=== PATIENT | male | born 1935 | race Caucasian/White ===

== ENCOUNTER 2017-02-10 11:03 | Emergency (ER) | payer BC ==
[~2017-02-10] VITALS: Ht 185.4 cm; Wt 88.0 kg
[~2017-02-10 11:03] MED LIST: ASPEC81 PO; CARV3.122 PO; LSN5 PO; NTRSLP4 SL; PLV75 PO; ROSU20TA PO; TIOTCAP INH
[2017-02-10 11:15] VITALS: TEMP 36.6; Ht 185.4 cm; Wt 88.0 kg
[2017-02-10] MEDS ORDERED: LISI10TA PO (11:28)
[2017-02-10] MEDS ORDERED: SPRIN/30 INH (11:28)
[2017-02-10] MEDS ORDERED: CARV3.122 PO (11:28)
[2017-02-10] MEDS ORDERED: FLUV1CAP PO (11:29)
[2017-02-10 11:40] VITALS: O2SAT 96
[2017-02-10 11:43] LABS: HEMATOCRIT 42.8 % (42-52); MEAN CELL VOLUME 88.8 fL (80-100); MEAN CORPUSCULAR HEMOGLOBIN 29.7 pg (25-34); MEAN CORPUSCULAR HGB CONC 33.4 g/dl (32-36); MEAN PLATELET VOLUME 11.1 fL (7.4-10.4); PLATELET COUNT 160 K/uL (130-400); RED BLOOD COUNT 4.82 M/uL (4.7-6.1); WHITE BLOOD COUNT 5.25 K/uL (4.8-10.8)
--- NOTE | 2017-02-10 11:44 | DIAGNOSTIC IMAGING REPORT ---
CHEST ONE VIEW PORTABLE CLINICAL HISTORY: Evaluate Fever/Sepsis dyspnea COMPARISON STUDY: 09/25/2016 FINDINGS: Stable left hilar fullness with fibrotic changes about the left hilum. Unchanging pleural reactive changes left pulmonary apex most likely post therapeutic. Chronic elevation left hemidiaphragm. Right lung is grossly clear.] Hemidiaphragm smooth. IMPRESSION: Chronic and postoperative/post therapeutic change. No acute process. Electronically signed by: Austin Mayberry M.D. 02/10/2017 11:42 AM Dictated Date/Time: 02/10/2017 11:41 AM
[2017-02-10 11:51] LABS: BLOOD UREA NITROGEN 18 mg/dl (7-18); BUN/CREATININE RATIO 14.2 (10-20); CALCIUM 8.7 mg/dl (8.5-10.1); CARBON DIOXIDE 30 mmol/L (21-32); CHLORIDE 108 mmol/L (98-107); GLUCOSE 76 mg/dl (70-99); SODIUM 143 mmol/L (136-145)
[2017-02-10 11:53] LABS: PARTIAL THROMBOPLASTIN RATIO 1.1; PROTHROMBIN TIME (PATIENT) 10.9 SECONDS (9.0-12.0)
[2017-02-10 11:57] LABS: ALKALINE PHOSPHATASE 55 U/L (45-117); ALT/SGPT 26 U/L (12-78); AST/SGOT 20 U/L (15-37)
[2017-02-10] MEDS ORDERED: FENTANYL CITRATE INJ 50 MCG/1 ML 2 ML VIAL IV ONE (12:00)
[2017-02-10 12:15] LABS: BASO ABS # 0.09 K/uL (0-0.2); BASOPHIL % 1.8 % (0-2); COMPLETE YES; EOSINOPHIL % 4.6 %; LYMPH ABS # 0.67 K/uL (1.2-3.4); LYMPHOCYTE % 12.8 %; NEUTROPHILS % 55.1 %; VARIANT LYM ABS # 1.35 K/uL; VARIANT LYMPHOCYTE % 25.7 %
--- NOTE | 2017-02-10 12:34 | DIAGNOSTIC IMAGING REPORT ---
HEAD CT NONCONTRAST CT DOSE: 729.78 mGycm HISTORY: Mental status change headache TECHNIQUE: Multiaxial CT images of the head were performed without the use of intravenous contrast. Comparison: 06/30/2011 Findings: The paranasal sinuses and mastoid air cells are clear. The calvarium and skull base are intact. The ventricles and sulci are within normal limits. There is no mass, hematoma, midline shift, or acute infarct. Mild asymmetry of CSF spaces over the cerebral convexities is unchanged and is considered chronic. Impression: No acute intracranial abnormality. Electronically signed by: Austin Mayberry M.D. 02/10/2017 12:32 PM Dictated Date/Time: 02/10/2017 12:29 PM
--- NOTE | 2017-02-10 14:30 | EMERGENCY ROOM VISIT NOTE ---
History Report prepared by Laine: Lew Venegas Under the Supervision of: Dr. Adi Hernandez D.O. First contact with patient: 11:24 Chief Complaint: CHEST PAIN Stated Complaint: CHEST PAIN Nursing Triage Summary: pt here with chest pain since this am. pt states upon onset pain was 8/10, was diaphoretic and dizzy. upon ems arrival pt rated pain 5/10, was given 4 baby aspirin and 1 nitro with min. relief. pt has hx of mi approx a year ago. History of Present Illness The patient is an 81 year old male who presents to the Emergency Room via EMS with complaints of persistent chest pain that started this morning. The patient had a heart attack a year ago. He states that he started getting a headache on the left side of his head last night, which radiated down into his ear. The patient's headache persisted into this morning, and he then started getting chest pain. This morning, he was also sweaty and dizzy. The patient rates the chest pain at onset as an 8 out of 10 in severity. Upon EMS arrival, the patient rated the pain as a 5 out of 10 in severity, and currently, he rates his pain as a 4 out of 10 in severity. The patient's headache has persisted until currently as well. The patient was given 4 baby aspirin and 1 nitro in the ambulance, with minimal relief. The patient denies shortness of breath, fevers, recent cough, runny nose, or sore throat. The patient says that he has never had a headache like this before. Source of History: patient, nursing staff Onset: This morning Position: chest Symptom Intensity: 8 out of 10 at onset, currently 4 out of 10 Timing: other (persistent) Associated Symptoms: + diaphoresis, + headache, No SOB, No cough, No fevers , No sorethroat Note: Associated symptoms: Dizziness. Denies runny nose. Review of Systems See HPI for pertinent positives & negatives. A total of 10 systems reviewed and were otherwise negative. 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 (8) Pneumonia, Organism Nos (9) Unstable angina Surgical Problems: (1) Stented coronary artery (2) Stented coronary artery Family History Cancer Diabetes mellitus Heart disease Hypertension Lung disease Social History Smoking Status: Never Smoker Alcohol Use: none Drug Use: none Marital Status: Housing Status: lives with family, unknown Occupation Status: retired Current/Historical Medications Scheduled Aspirin (Aspirin EC Low Dose), 81 MG PO QAM Carvedilol (Coreg), 3.125 MG PO BID Clopidogrel Bisulfate (Clopidogrel), 75 MG PO QAM Fluvastatin (Lescol), 20 MG PO Q2D Lisinopril (Prinivil), 10 MG PO DAILY Tiotropium [place] (Spiriva Handihaler), 1 CAP INH DAILY Scheduled PRN Nitroglycerin (Nitrostat), 0.4 MG SL Q5M PRN for Chest Pain Allergies Coded Allergies: Cephalosporins (Verified Allergy, Unknown, 02/10/17) Iodinated Diagnostic Agents (Verified Allergy, Unknown, `, 02/10/17) Oxycodone (Verified Allergy, Unknown, HIVES, 02/10/17) ABLE TO TAKE TYLENOL Penicillins (Verified Allergy, Unknown, 02/10/17) Physical Exam Vital Signs Date Time Temp Pulse Resp B/P Pulse Ox O2 Delivery O2 Flow Rate FiO2 02/10/17 14:37 76 16 147/76 97 Room Air 02/10/17 14:07 65 02/10/17 12:39 67 16 154/86 97 Room Air 02/10/17 11:40 96 Room Air 02/10/17 11:15 36.6 77 16 153/95 96 Room Air 02/10/17 11:09 68 Physical Exam CONSTITUTIONAL/VITAL SIGNS: Reviewed / noted above. GENERAL: Non-toxic in appearance. INTEGUMENTARY: Warm, dry, and [place]. HEAD: Normocephalic. EYES: without scleral icterus or trauma. ENT/OROPHARYNX: clear and moist. LYMPHADENOPATHY/NECK: Is supple without lymphadenopathy or meningismus. RESPIRATORY: Lungs clear and equal. CARDIOVASCULAR: Regular rate and rhythm. GI/ABDOMEN: Soft and nontender. No organomegaly or pulsatile mass. No rebound or guarding. Normal bowel sounds. EXTREMITIES: Warm and well perfused. BACK: No CVA tenderness. NEUROLOGICAL: Intact without focal deficits. PSYCHIATRIC: normal affect. MUSCULOSKELETAL: Normally developed with good muscle tone. Medical Decision & Procedures ER Provider Diagnostic Interpretation: Radiology results as stated below per my review and radiologist interpretation: CHEST ONE VIEW PORTABLE CLINICAL HISTORY: Evaluate Fever/Sepsis dyspnea COMPARISON STUDY: 09/25/2016 FINDINGS: Stable left hilar fullness with fibrotic changes about the left hilum. Unchanging pleural reactive changes left pulmonary apex most likely post therapeutic. Chronic elevation left hemidiaphragm. Right lung is grossly clear.] Hemidiaphragm smooth. IMPRESSION: Chronic and postoperative/post therapeutic change. No acute process. Electronically signed by: Austin Mayberry M.D. 02/10/2017 11:42 AM Dictated Date/Time: 02/10/2017 11:[address]AST CT DOSE: 729.78 mGycm HISTORY: Mental status change headache TECHNIQUE: Multiaxial CT images of the head were performed without the use of intravenous contrast. Comparison: 06/30/2011 Findings: The paranasal sinuses and mastoid air cells are clear. The calvarium and skull base are intact. The ventricles and sulci are within normal limits. There is no mass, hematoma, midline shift, or acute infarct. Mild asymmetry of CSF spaces over the cerebral convexities is unchanged and is considered chronic. Impression: No acute intracranial abnormality. Electronically signed by: Autsin Mayberry M.D. 02/10/2017 12:32 PM Dictated Date/Time: 02/10/2017 12:29 PM Laboratory Results 02/10/17 10:55 Red Blood Count 4.82, Mean Corpuscular Volume 88.8, Mean Corpuscular Hemoglobin 29.7, Mean Corpuscular Hemoglobin Concent 33.4, Mean Platelet Volume 11.1 02/10/17 10:55 Test 02/10/17 10:55 02/10/17 13:45 White Blood Count 5.25 K/uL (4.8-10.8) Red Blood Count 4.82 M/uL (4.7-6.1) Hemoglobin 14.3 g/dL (14.0-18.0) Hematocrit 42.8 % (42-52) Mean Corpuscular Volume 88.8 fL (80-100) Mean Corpuscular Hemoglobin 29.7 pg (25-34) Mean Corpuscular Hemoglobin Concent 33.4 g/dl (32-36) Platelet Count 160 K/uL (130-400) Mean Platelet Volume 11.1 fL (7.4-10.4) RDW Standard Deviation 46.7 fL (36.4-46.3) RDW Coefficient of Variation 14.3 % (11.5-14.5) Neutrophils % (Manual) 55.1 % Lymphocytes % (Manual) 12.8 % Variant Lymphocytes % (manual) 25.7 % Eosinophils % (Manual) 4.6 % Basophils % (Manual) 1.8 % (0-2) Neutrophils # (Manual) 2.89 K/uL (1.4-6.5) Total Absolute Neutrophils 2.89 K/uL (1.4-6.5) Lymphocytes # (Manual) 0.67 K/uL (1.2-3.4) Absolute Variant Lymphocytes 1.35 K/uL Total Absolute Lymphocytes 2.02 K/uL (1.2-3.4) Eosinophils # (Manual) 0.24 K/uL (0-0.5) Basophils # (Manual) 0.09 K/uL (0-0.2) Red Blood Cell Morphology Unremarkable Prothrombin Time 10.9 SECONDS (9.0-12.0) Prothromb Time International Ratio 1.0 (0.9-1.1) Activated Partial Thromboplast Time 28.7 SECONDS (21.0-31.0) Partial Thromboplastin Ratio 1.1 Anion Gap 5.0 mmol/L (3-11) Est Creatinine Clear Calc Drug Dose 51.2 ml/min Estimated GFR () 59.7 Estimated GFR (Non- 51.5 BUN/Creatinine Ratio 14.2 (10-20) Calcium Level 8.7 mg/dl (8.5-10.1) Total Bilirubin 1.2 mg/dl (0.2-1) Direct Bilirubin 0.2 mg/dl (0-0.2) Aspartate Amino Transf (AST/SGOT) 20 U/L (15-37) Alanine Aminotransferase (ALT/SGPT) 26 U/L (12-78) Alkaline Phosphatase 55 U/L (45-117) Total Creatine Kinase 155 U/L (39-308) Creatine Kinase MB 1.6 ng/ml (0.5-3.6) Creatine Kinase MB Ratio 1.0 (0-3.0) Troponin I < 0.015 ng/ml (0-0.045) Total Protein 7.2 gm/dl (6.4-8.2) Albumin 3.8 gm/dl (3.4-5.0) Lipase 144 U/L (73-393) Erythrocyte Sedimentation Rate 11 mm/hr (0-14) Laboratory results as stated above per my review. Medications Administered Medications (Trade) Dose Ordered Sig/Umesh Route Start Time Stop Time Status Last Admin Dose Admin Fentanyl Citrate (Fentanyl Inj) 50 mcg NOW ONCE IV 02/10/17 12:00 02/10/17 12:01 DC 02/10/17 11:55 50 MCG ECG Indication: chest pain Rate (beats per minute): 68 Rhythm: normal sinus Findings: no ectopy, other (left anterior fascicular block, no acute injury) Comparison ECG Date: there are some nonspecific T-wave changes laterally that are different than July 04 2016 ED Course 1144: Previous medical records were reviewed. The patient was evaluated in room C3. A complete history and physical examination was performed. 1200: Ordered Fentanyl Inj 50 mcg IV. 1431: On reevaluation, the patient is resting comfortably. I discussed the results and findings with the patient. He verbalized agreement of the treatment plan. He will be discharged home. Medical Decision . Differential diagnosis: Etiologies such as cardiac ischemia, aortic dissection, pulmonary embolism, pneumonia, pneumothorax, musculoskeletal, infections, pericarditis, myocarditis , esophageal rupture, gastrointestinal, as well as others were entertained. Differential includes: Acute intracranial bleed, trauma, meningitis, encephalitis, increased intracranial pressure, mass or mass effect, facial or dental infection, temporal arteritis, CVA, TIA, acute hypertensive emergency, sinusitis, carbon monoxide exposure. This is an 81-year-old male who presents to the ED with a chief complaint of left-sided head pain as well as some chest pain today in addition to diaphoresis , dizziness. The head started to hurt yesterday. His pain on the left side. His chest pain started this morning. EMS arrived and found the patient clammy. He was provided nitroglycerin and aspirin. He states the nitroglycerin did not seem to help his pain. He denied associated shortness of breath or recent illness. He does not have a fever. No back or flank pain and abdominal pain. His vital signs are stable. His physical exam was unremarkable. CBC is normal. A chest x-ray was negative for acute disease. A CT scan of the brain was negative for acute disease. Complete metabolic panel was normal. A troponin was negative. Lipase was negative. A sedimentation rate was 11. The patient was told the results of the tests. He was treated with IV fentanyl. He is felt to be stable for discharge and outpatient follow-up. Impression Primary Impression: Headache Additional Impression: Precordial chest pain Scribe Attestation The scribe's documentation has been prepared under my direction and personally reviewed by me in its entirety. I confirm that the note above accurately reflects all work, treatment, procedures, and medical decision making performed by me. Departure Information Dispostion Home / Self-Care Referrals Daryn Pettit M.D. (PCP) Patient Instructions My [facility] Additional Instructions Follow-up with your doctor for further care and evaluation in 1-2 days. Return to the emergency department for worsening or new symptoms or any concerns. You have been examined and treated today on an emergency basis only. This is not a substitute for, or an effort to provide, complete comprehensive medical care. It is impossible to recognize and treat all injuries or illnesses in a single emergency department visit. It is therefore important that you follow up closely with your doctor. Call as soon as possible for an appointment. Problem Qualifiers
[2017-02-10 14:37] VITALS: BP 147/76; PULSE 76; O2SAT 97
== END 2017-02-10 11:43 | disposition home or self-care (01) ==
LOC: EDBD 11:03 → C.EDC 11:04
DX: R51 Headache (principal); R07.2 Precordial pain; R61 Generalized hyperhidrosis; R42 Dizziness and giddiness; Z79.82 Long term (current) use of aspirin; Z79.899 Other long term (current) drug therapy; I25.2 Old myocardial infarction; Z85.118 Personal history of other malignant neoplasm of bronchus and lung; Z86.79 Personal history of other diseases of the circulatory system; Z87.01 Personal history of pneumonia (recurrent); Z87.09 Personal history of other diseases of the respiratory system; Z87.19 Personal history of other diseases of the digestive system; Z98.61 Coronary angioplasty status; Z82.49 Family history of ischemic heart disease and other diseases of the circulatory system; Z83.3 Family history of diabetes mellitus; Z83.6 Family history of other diseases of the respiratory system

== ENCOUNTER → 2017-05-07 | Outpatient (CLI) | payer BC ==
[~2017-05-07] MED LIST changes: +FLUV1CAP PO; +LISI10TA PO; -LSN5 PO; -ROSU20TA PO; +SPRIN/30 INH; -TIOTCAP INH
[2017-05-07 09:48] LABS: BASO % 0.8 %; BASO ABS # 0.04 K/uL (0-0.2); COMPLETE YES; EOS % 3.2 %; HEMATOCRIT 44.8 % (42-52); IG% 0.2 %; LYMPH % 20.6 %; MEAN CELL VOLUME 88.7 fL (80-100); MEAN CORPUSCULAR HEMOGLOBIN 28.5 pg (25-34); MEAN CORPUSCULAR HGB CONC 32.1 g/dl (32-36); MEAN PLATELET VOLUME 11.3 fL (7.4-10.4); MONO % 10.1 %; NEUT % 65.1 %; PLATELET COUNT 156 K/uL (130-400); RED BLOOD COUNT 5.05 M/uL (4.7-6.1); WHITE BLOOD COUNT 5.33 K/uL (4.8-10.8)
[2017-05-07 10:27] LABS: ALT/SGPT 21 U/L (12-78); AST/SGOT 11 U/L (15-37); BLOOD UREA NITROGEN 14 mg/dl (7-18); BUN/CREATININE RATIO 12.5 (10-20); CALCIUM 8.5 mg/dl (8.5-10.1); CARBON DIOXIDE 29 mmol/L (21-32); CHLORIDE 110 mmol/L (98-107); CHOLESTEROL 150 mg/dl (0-200); GLUCOSE 82 mg/dl (70-99); POTASSIUM 4.2 mmol/L (3.5-5.1); SODIUM 142 mmol/L (136-145)
[2017-05-07 10:29] LABS: ALB/GLOB RATIO 1.1 (0.9-2); ALKALINE PHOSPHATASE 54 U/L (45-117); CHOLESTEROL/HDL RATIO 4.4; HDL CHOLESTEROL 34 mg/dl; LDL CHOLESTEROL CALCULATED 83 mg/dl; TRIGLYCERIDES 165 mg/dl (0-150); VERY LOW DENSITY LIPOPROT CALC 33 mg/dl
--- NOTE | 2017-05-12 08:42 | CODING QUERY MEDICAL NECESSITY ---
SUPPORTING DIAGNOSIS NEEDED Dr. Pettit, A supporting diagnosis is required for the test/procedure performed on this patient in order for us to be reimbursed by the patient's insurance. Please provide a supporting diagnosis for the following test/procedure listed below next to the test name along with your signature. *If there is no additional diagnosis for this patient that would support the following test/procedure please document that below next to the test/procedure. Test(s)/Procedure(s) that require a supporting diagnosis: * ([id number]) VITAMIN D ASSAY DIAGNOSIS: DATE OF SERVICE: 05/07/17 Provider Signature: Date: Thank you Jan [facility] Information Management Once completed, please kindly fax back to [phone] For questions please call [phone]
== END | disposition home or self-care (01) ==
LOC: C.LAB 09:16
PROVIDERS: ATTEND Internal Medicine Geriatric Medicine
DX: J43.9 Emphysema, unspecified (principal); Z85.118 Personal history of other malignant neoplasm of bronchus and lung; M19.90 Unspecified osteoarthritis, unspecified site; E78.5 Hyperlipidemia, unspecified; I10 Essential (primary) hypertension; I25.10 Atherosclerotic heart disease of native coronary artery without angina pectoris; D64.9 Anemia, unspecified; E55.9 Vitamin D deficiency, unspecified

== ENCOUNTER → 2017-11-11 | Outpatient (CLI) | payer BC ==
--- NOTE | 2017-11-11 13:51 | DIAGNOSTIC IMAGING REPORT ---
CHEST 2 VIEWS ROUTINE CLINICAL HISTORY: R05 [id number] COMPARISON STUDY: February 10, 2017 FINDINGS: There is underlying pulmonary emphysema. Postsurgical changes are present on the left. There is left-sided volume loss. There is increased density at the left hilum with thin adjacent fibrotic spiculations. There is left apical pleural thickening. There is no acute parenchymal consolidation. There are no significant and pleural effusions.[ IMPRESSION: Stable postsurgical changes on the left. No acute findings. Electronically signed by: Ortega Nino M.D. 11/11/2017 1:50 PM Dictated Date/Time: 11/11/2017 1:49 PM
[2017-11-11 17:19] LABS: BLOOD UREA NITROGEN 12 mg/dl (7-18); CALCIUM 8.9 mg/dl (8.5-10.1); CARBON DIOXIDE 29 mmol/L (21-32); CREATININE 1.32 mg/dl (0.60-1.40); GLUCOSE 79 mg/dl (70-99); POTASSIUM 4.4 mmol/L (3.5-5.1); SODIUM 139 mmol/L (136-145)
== END | disposition home or self-care (01) ==
LOC: C.RADBC 13:16
PROVIDERS: ATTEND Internal Medicine Geriatric Medicine
DX: R05 Cough (principal)

== ENCOUNTER 2017-11-20 21:07 | Emergency (ER) | payer BC ==
[~2017-11-20] VITALS: Ht 182.9 cm; Wt 87.0 kg
[2017-11-20 21:14] VITALS: TEMP 36.7; Ht 182.9 cm; Wt 87.0 kg
--- NOTE | 2017-11-20 22:00 | EMERGENCY ROOM VISIT NOTE ---
History Report prepared by Laine: Lizabeth Isbell Under the Supervision of: Dr. Alfred Saldivar M.D. First contact with patient: 21:49 Chief Complaint: NOSE BLEED (MINOR) Stated Complaint: NOSE BLEED - IS ON BLOOD THINNERS History of Present Illness The patient is a 82 year old male who presents to the Emergency Room with complaints of a nose bleed in his left nostril that began spontaneously at 2024. He is accompanied by his daughter and who report that his nose bleed resolved itself in the ED waiting room. His states that he had a similar episode to this a couple of days before Nadeen 2016. He denies feeling any dripping in the back of his throat. Source of History: patient, family (daughter ), spouse/significant other ( ) Onset: 2024 today Position: nose (left nostril ) Quality: other (bleeding) Note: Negative dripping in the back of his throat. Review of Systems See HPI for pertinent positives and negatives. A total of ten systems were reviewed and were otherwise negative. 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 (8) Pneumonia, Organism Nos (9) Unstable angina Surgical Problems: (1) History of cardiac cath (2) History of cardiac catheterization (3) Stented coronary artery (4) Stented coronary artery Family History Cancer Diabetes mellitus Heart disease Hypertension Lung disease Social History Smoking Status: Never Smoker Alcohol Use: none Drug Use: none Marital Status: Housing Status: lives with family, unknown Occupation Status: retired Current/Historical Medications Scheduled Aspirin (Aspirin EC Low Dose), 81 MG PO QAM Carvedilol (Coreg), 3.125 MG PO BID Clopidogrel Bisulfate (Clopidogrel), 75 MG PO QAM Fluvastatin (Lescol), 20 MG PO Q2D Lisinopril (Prinivil), 10 MG PO DAILY Tiotropium [place] (Spiriva Handihaler), 1 CAP INH DAILY Scheduled PRN Nitroglycerin (Nitrostat), 0.4 MG SL Q5M PRN for Chest Pain Allergies Coded Allergies: Cephalosporins (Verified Allergy, Unknown, 02/10/17) Iodinated Diagnostic Agents (Verified Allergy, Unknown, `, 02/10/17) Oxycodone (Verified Allergy, Unknown, HIVES, 02/10/17) ABLE TO TAKE TYLENOL Penicillins (Verified Allergy, Unknown, 02/10/17) Physical Exam Vital Signs Date Time Temp Pulse Resp B/P (MAP) Pulse Ox O2 Delivery O2 Flow Rate FiO2 11/21/17 00:56 85 16 149/85 95 Room Air 11/20/17 21:14 36.7 93 18 124/78 96 Room Air Physical Exam GENERAL: Awake, alert, well-appearing, in no distress HENT: Normocephalic, atraumatic. Oropharynx unremarkable. Dry blood in bilateral naris. 0.5 cm anterior erosions to the right lateral naris wall and left septal naris wall. No evidence of active bleeding in posterior pharynx. EYES: Normal conjunctiva. Sclera non-icteric. NECK: Supple. No nuchal rigidity. FROM. No JVD. RESPIRATORY: Clear to auscultation. CARDIAC: Regular rate, normal rhythm. Extremities warm and well perfused. Pulses equal. ABDOMEN: Soft, non-distended. No tenderness to palpation. No rebound or guarding. No masses. RECTAL: Deferred. MUSCULOSKELETAL: Chest examination reveals no tenderness. The back is symmetrical on inspection without obvious abnormality. There is no CVA tenderness to palpation. No joint edema. LOWER EXTREMITIES: Calves are equal size bilaterally and non-tender. No edema. No discoloration. NEURO: Normal sensorium. No sensory or motor deficits noted. SKIN: No rash or jaundice noted. Medical Decision & Procedures Laboratory Results 11/20/17 22:30 Red Blood Count 5.09, Mean Corpuscular Volume 87.2, Mean Corpuscular Hemoglobin 29.9, Mean Corpuscular Hemoglobin Concent 34.2, Mean Platelet Volume 10.8, Neutrophils (%) (Auto) 66.9, Lymphocytes (%) (Auto) 17.9, Monocytes (%) (Auto) 11.9, Eosinophils (%) (Auto) 2.3, Basophils (%) (Auto) 0.3, Neutrophils # (Auto ) 4.69, Lymphocytes # (Auto) 1.25, Monocytes # (Auto) 0.83, Eosinophils # (Auto ) 0.16, Basophils # (Auto) 0.02 2/9/18 22:30 Test 11/20/17 22:30 11/20/17 23:09 White Blood Count 7.00 K/uL (4.8-10.8) Red Blood Count 5.09 M/uL (4.7-6.1) Hemoglobin 15.2 g/dL (14.0-18.0) Hematocrit 44.4 % (42-52) Mean Corpuscular Volume 87.2 fL (80-100) Mean Corpuscular Hemoglobin 29.9 pg (25-34) Mean Corpuscular Hemoglobin Concent 34.2 g/dl (32-36) Platelet Count 153 K/uL (130-400) Mean Platelet Volume 10.8 fL (7.4-10.4) Neutrophils (%) (Auto) 66.9 % Lymphocytes (%) (Auto) 17.9 % Monocytes (%) (Auto) 11.9 % Eosinophils (%) (Auto) 2.3 % Basophils (%) (Auto) 0.3 % Neutrophils # (Auto) 4.69 K/uL (1.4-6.5) Lymphocytes # (Auto) 1.25 K/uL (1.2-3.4) Monocytes # (Auto) 0.83 K/uL (0.11-0.59) Eosinophils # (Auto) 0.16 K/uL (0-0.5) Basophils # (Auto) 0.02 K/uL (0-0.2) RDW Standard Deviation 45.4 fL (36.4-46.3) RDW Coefficient of Variation 14.2 % (11.5-14.5) Immature Granulocyte % (Auto) 0.7 % Immature Granulocyte # (Auto) 0.05 K/uL (0.00-0.02) Anion Gap 6.0 mmol/L (3-11) Est Creatinine Clear Calc Drug Dose 51.3 ml/min Estimated GFR () 62.8 Estimated GFR (Non- 54.2 BUN/Creatinine Ratio 23.4 (10-20) Calcium Level 8.5 mg/dl (8.5-10.1) Prothrombin Time 10.5 SECONDS (9.0-12.0) Prothromb Time International Ratio 1.0 (0.9-1.1) Activated Partial Thromboplast Time 25.1 SECONDS (21.0-31.0) Partial Thromboplastin Ratio 1.0 Laboratory results reviewed by me Medications Administered Medications (Trade) Dose Ordered Sig/[facility] Route Start Time Stop Time Status Last Admin Dose Admin Oxymetazoline HCl (Afrin 0.05% Nasal [place]) 75 sprays STK-MED ONCE .ROUTE 11/20/17 22:38 11/20/17 22:39 DC 11/20/17 22:38 75 SPRAYS Silver Nitrate/ Potassium Nitrate (Silver Nitrate Applicators) 4 appl STK-MED ONCE .ROUTE 11/21/17 00:54 11/21/17 00:55 DC 11/21/17 00:54 4 APPL Procedure Anterior Nasal Cauterization. Indication: Epistaxis Verbal consent obtained. Bilateral naris were pretreated with Afrin. Silver nitrate was briefly applied to right lateral and left septal naris anterior erosions with good effect. The patient tolerated this well. Hemostasis maintained. No complications. ED Course 2154: The patient was evaluated in room A10. A complete history and physical exam was performed. 0100 I reevaluated the patient. Discussed results and discharge instructions: He verbalized understanding and agreement. The patient is ready for discharge. Medical Decision I reviewed the patient's past medical history, medications, and the nursing notes as described above. Differential diagnosis: Etiologies such as anterior vs posterior epistaxis, coagulopathy, traumatic injury, fracture, septal hematoma, thrombocytopenia, URI, Bronchitis, as well as other pathologies were entertained. The patient is an 82 y/o gentlman with a pmxh of CAD on ASA and plavix who presents to the emergency department with epistaxis beginning [employer] in the setting of being treated for bronchitis per HPI. On arrival the patient is in NAD, AFVSS. Clamp placed on arrival with subsequent hemostasis achieved. Small right lateral and left septal erosions appreciated. Patient pretreated with afrin and erosions cauterized per procedure note with good effect. Labs unremarkable. Findings and plan for follow-up reviewed with patient. Patient agreeable and d/c'd per discharge instructions. Medication Reconcilliation Current Medication List: was personally reviewed by me Blood Pressure Screening Patient's blood pressure: Normal blood pressure Blood pressure disposition: Did not require urgent referral Impression Primary Impression: Anterior epistaxis Scribe Attestation The scribe's documentation has been prepared under my direction and personally reviewed by me in its entirety. I confirm that the note above accurately reflects all work, treatment, procedures, and medical decision making performed by me. Departure Information Dispostion Home / Self-Care Referrals Daryn Pettit M.D. (PCP) Forms HOME CARE DOCUMENTATION FORM, IMPORTANT VISIT INFORMATION, WORK / SCHOOL INSTRUCTIONS Patient Instructions ED Nosebleed, My [facility] Additional Instructions Please follow up with your primary care physician in the next 1-3 days for re- evaluation. Your nose bleed was most likely due to your recent respiratory infection causing dryness in your nose. Your nose bleed was controlled here with pressure and then 2 sites were cauterized in both nares. Otherwise, your exam and lab results did not show signs of an emergent condition at this time. Afrin and pressure for recurrent nose bleed as directed. Drink plenty of fluids to ensure hydration. Return to the emergency department for worsening symptoms as described in the accompanying instructions.
[2017-11-20] MEDS ORDERED: OXYMETAZOLINE HCL 0.05% NA SPR 15 ML BTL ONE (22:38)
[2017-11-20 22:48] LABS: BASO % 0.3 %; BASO ABS # 0.02 K/uL (0-0.2); EOS % 2.3 %; EOS ABS # 0.16 K/uL (0-0.5); HEMATOCRIT 44.4 % (42-52); HEMOGLOBIN 15.2 g/dL (14.0-18.0); IG# 0.05 K/uL (0.00-0.02); LYMPH % 17.9 %; LYMPH ABS # 1.25 K/uL (1.2-3.4); MEAN CELL VOLUME 87.2 fL (80-100); MEAN CORPUSCULAR HEMOGLOBIN 29.9 pg (25-34); MEAN CORPUSCULAR HGB CONC 34.2 g/dl (32-36); MEAN PLATELET VOLUME 10.8 fL (7.4-10.4); MONO % 11.9 %; MONO ABS # 0.83 K/uL (0.11-0.59); NEUT % 66.9 %; NEUT ABS # 4.69 K/uL (1.4-6.5); PLATELET COUNT 153 K/uL (130-400); RED CELL DISTRIBUTION WIDTH CV 14.2 % (11.5-14.5); RED CELL DISTRIBUTION WIDTH SD 45.4 fL (36.4-46.3)
[2017-11-20 23:06] LABS: CALCIUM 8.5 mg/dl (8.5-10.1); CREATININE 1.24 mg/dl (0.60-1.40); POTASSIUM 3.9 mmol/L (3.5-5.1)
[2017-11-21] LABS: PTT PATIENT 25.1 SECONDS (21.0-31.0)
[2017-11-21] MEDS ORDERED: SILVER NITR/POTASSIUM NITRATE APPLICATOR ONE ×2 (00:50→00:54)
[2017-11-21 00:56] VITALS: BP 149/85; PULSE 85; O2SAT 95
== END 2017-11-21 01:05 | disposition home or self-care (01) ==
LOC: C.EDB 21:08 → C.EDA 11-21 01:05
DX: R04.0 Epistaxis (principal); Z96.659 Presence of unspecified artificial knee joint; Z90.2 Acquired absence of lung [part of]; Z87.01 Personal history of pneumonia (recurrent); Z85.118 Personal history of other malignant neoplasm of bronchus and lung; Z95.5 Presence of coronary angioplasty implant and graft; Z80.9 Family history of malignant neoplasm, unspecified; Z83.3 Family history of diabetes mellitus; Z82.49 Family history of ischemic heart disease and other diseases of the circulatory system; Z79.82 Long term (current) use of aspirin; Z79.899 Other long term (current) drug therapy

== ENCOUNTER 2017-12-02 08:17 | Inpatient (IN) | payer BC, OTHER ==
[~2017-12-02] VITALS: Ht 182.9 cm; Wt 83.6 kg
[2017-12-02] VITALS (21 sets, daily range): BP systolic 114–176; BP diastolic 59–97; PULSE 65–84; TEMP 36.7; O2SAT 93–97; Ht 182.9 cm; Wt 83.6 kg
[~2017-12-02 08:17] MED LIST changes: +NZRCR TOP
[2017-12-02] MEDS ORDERED: RANI150C4 PO (08:35)
[2017-12-02] MEDS ORDERED: CRG3125 PO ×2 (08:35)
[2017-12-02] MEDS ORDERED: NTRGSL/4 UT ×2 (08:35)
[2017-12-02] MEDS ORDERED: TIOT1AER2 INH ×2 (08:35)
[2017-12-02] MEDS ORDERED: ALBINS/ NEB ×2 (08:35)
[2017-12-02] MEDS ORDERED: ASPI81TA28 PO ×2 (08:35)
[2017-12-02] MEDS ORDERED: CZR25 PO ×2 (08:35)
[2017-12-02] MEDS ORDERED: LISI-461 PO (08:35)
[2017-12-02] MEDS ORDERED: CLOP1TAB15 PO ×2 (08:37)
[2017-12-02] MEDS ORDERED: CHOL2000 PO (08:37)
--- NOTE | 2017-12-02 08:40 | DIAGNOSTIC IMAGING REPORT ---
CT OF THE HEAD WITHOUT CONTRAST CLINICAL HISTORY: Stroke symptoms. Left-sided weakness. COMPARISON STUDY: Head CT February 10, 2017. CT DOSE: 638.84 mGy.cm TECHNIQUE: Helical axial images of the head were obtained without IV contrast. Automated exposure control was utilized for the study. A dose lowering technique was utilized adhering to the principles of ALARA. FINDINGS: No acute intracranial hemorrhage, midline shift or mass effect is present. Ventricular system is normal. Basilar cisterns are patent. Slight prominence of the extra-axial CSF spaces is unchanged since exam of February 10, 2017. There are no findings to suggest acute dural sinus thrombosis or acute territorial infarct. There are no significant calvarial abnormalities. Mastoid air cells are clear. IMPRESSION: No acute intracranial findings. Electronically signed by: Dalton Moreno M.D. 12/02/2017 8:39 AM Dictated Date/Time: 12/02/2017 8:35 AM
[2017-12-02 08:44] LABS: BASO % 0.6 %; BASO ABS # 0.04 K/uL (0-0.2); EOS % 1.3 %; EOS ABS # 0.09 K/uL (0-0.5); HEMATOCRIT 44.6 % (42-52); HEMOGLOBIN 15.1 g/dL (14.0-18.0); IG# 0.03 K/uL (0.00-0.02); LYMPH ABS # 1.33 K/uL (1.2-3.4); MEAN CELL VOLUME 88.1 fL (80-100); MEAN CORPUSCULAR HEMOGLOBIN 29.8 pg (25-34); MEAN CORPUSCULAR HGB CONC 33.9 g/dl (32-36); MEAN PLATELET VOLUME 10.8 fL (7.4-10.4); MONO % 7.9 %; MONO ABS # 0.55 K/uL (0.11-0.59); NEUT % 70.8 %; NEUT ABS # 4.96 K/uL (1.4-6.5); PLATELET COUNT 157 K/uL (130-400); RED CELL DISTRIBUTION WIDTH CV 14.7 % (11.5-14.5); RED CELL DISTRIBUTION WIDTH SD 47.1 fL (36.4-46.3)
[2017-12-02 08:54] LABS: PTT PATIENT 24.8 SECONDS (21.0-31.0)
--- NOTE | 2017-12-02 08:56 | EMERGENCY ROOM VISIT NOTE ---
History Report prepared by Laine: Adrianna Raines Under the Supervision of: Dr. Ben Reeder M.D. 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 The patient states that he felt fine when he woke up this morning. Daughter reports that he ate breakfast normally. He was sitting in a chair and between 7:30am-8:00am he developed left sided numbness and weakness. He reports weakness in his left arm and leg as well as a slight left facial droop. The patient denies any headache. He is complaining of feeling tired. He has never had a stroke in the past. The patient currently takes aspirin and Plavix. He was brought to the ED by ambulance. 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 A total of 10 systems reviewed and were otherwise negative. 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 (8) Pneumonia, Organism Nos (9) Unstable angina Surgical Problems: (1) History of cardiac cath (2) History of cardiac catheterization (3) Stented coronary artery (4) Stented coronary artery Family History Cancer Diabetes mellitus Heart disease Hypertension Lung disease Social History Smoking Status: Never Smoker Alcohol Use: none Drug Use: none Marital Status: Housing Status: lives with family, unknown Occupation Status: retired Current/Historical Medications Scheduled Aspirin (Aspirin Ec), 81 MG PO DAILY Carvedilol (Carvedilol), 1 TAB PO BID Cholecalciferol (Vitamin D3), 1 CAP PO DAILY Clopidogrel (Plavix), 75 MG PO DAILY Ketoconazole (Ketoconazole), 1 APPLN TOP BID Losartan Potassium (Losartan Potassium), 1 TAB PO DAILY Tiotropium Woodrow (Spiriva Respimat), 1 CAP INH DAILY Scheduled PRN Albuterol Sulf (Proventil 0.083% 2.5MG/3ML), 1 DOSE NEB Q6H PRN for Wheezing Nitroglycerin (Nitrostat), 0.4 MG UT PRN PRN for Chest Pain Allergies Coded Allergies: Atorvastatin (Unverified Allergy, Unknown, ., 12/02/17) Cephalosporins (Verified Allergy, Unknown, 12/02/17) Fluticasone (Unverified Allergy, Unknown, ., 12/02/17) Fluvastatin (Unverified Allergy, Unknown, ., 12/02/17) Iodinated Diagnostic Agents (Verified Allergy, Unknown, `, 12/02/17) Lisinopril (Unverified Allergy, Unknown, ., 12/02/17) Milk Protein Extract (Unverified Allergy, Unknown, ., 12/02/17) Oxycodone (Verified Allergy, Unknown, HIVES, 12/02/17) ABLE TO TAKE TYLENOL Penicillins (Verified Allergy, Unknown, 12/02/17) Rosuvastatin (Unverified Allergy, Unknown, ., 12/02/17) Salmeterol (Unverified Allergy, Unknown, ., 12/02/17) Physical Exam Vital Signs Date Time Temp Pulse Resp B/P (MAP) Pulse Ox O2 Delivery O2 Flow Rate FiO2 12/02/17 10:09 76 22 159/87 97 Room Air 12/02/17 10:00 97 Room Air 12/02/17 09:46 82 22 137/85 96 Room Air 12/02/17 09:30 78 22 155/88 96 Room Air 12/02/17 09:22 80 24 170/90 12/02/17 09:15 84 24 170/91 97 Room Air 12/02/17 09:01 80 20 175/91 96 Room Air 12/02/17 08:45 86 22 160/90 97 Room Air 12/02/17 08:42 98 Room Air 12/02/17 08:38 80 22 146/85 98 Room Air 12/02/17 08:35 85 12/02/17 08:28 36.8 88 18 203/112 96 Room Air Physical Exam GENERAL: Patient is in no acute distress. HEENT: No acute trauma, normocephalic atraumatic, mucous membranes moist, no nasal congestion, no scleral icterus. NECK: No stridor, no adenopathy, no meningismus, trachea is midline. LUNGS: Clear to auscultation bilaterally, no wheeze, no rhonchi, breath sounds equal. HEART: Without murmurs gallops or rubs, regular rate and rhythm. ABDOMEN: Soft, nontender, bowel sounds positive, no hernias, no peritonitis. EXTREMITIES: No cyanosis or edema, full range of motion of all the joints without pain or difficulty, no signs for acute trauma. NEUROLOGIC: Awake and alert, left facial droop and left upper and lower extremity drift noted. No cerebellar dysfunction, no speech slur. SKIN: No rash, no jaundice, no diaphoresis. Medical Decision & Procedures ER Provider Diagnostic Interpretation: Radiology results as stated below per my review and radiologist interpretation: CT OF THE HEAD WITHOUT CONTRAST CLINICAL HISTORY: Stroke symptoms. Left-sided weakness. COMPARISON STUDY: Head CT February 10, 2017. CT DOSE: 638.84 mGy.cm TECHNIQUE: Helical axial images of the head were obtained without IV contrast. Automated exposure control was utilized for the study. A dose lowering technique was utilized adhering to the principles of ALARA. FINDINGS: No acute intracranial hemorrhage, midline shift or mass effect is present. Ventricular system is normal. Basilar cisterns are patent. Slight prominence of the extra-axial CSF spaces is unchanged since exam of February 10, 2017. There are no findings to suggest acute dural sinus thrombosis or acute territorial infarct. There are no significant calvarial abnormalities. Mastoid air cells are clear. IMPRESSION: No acute intracranial findings. Electronically signed by: Dalton Moreno M.D. 12/02/2017 8:39 AM Dictated Date/Time: 12/02/2017 8:35 AM Laboratory Results 12/02/17 08:33 Red Blood Count 5.06, Mean Corpuscular Volume 88.1, Mean Corpuscular Hemoglobin 29.8, Mean Corpuscular Hemoglobin Concent 33.9, Mean Platelet Volume 10.8, Neutrophils (%) (Auto) 70.8, Lymphocytes (%) (Auto) 19.0, Monocytes (%) (Auto) 7.9, Eosinophils (%) (Auto) 1.3, Basophils (%) (Auto) 0.6, Neutrophils # (Auto) 4.96, Lymphocytes # (Auto) 1.33, Monocytes # (Auto) 0.55, Eosinophils # (Auto) 0.09, Basophils # (Auto) 0.04 12/02/17 08:33 Test 12/02/17 08:30 12/02/17 08:33 12/02/17 09:35 Bedside Prothrombin Time INR 1.0 (0.9-1.1) White Blood Count 7.00 K/uL (4.8-10.8) Red Blood Count 5.06 M/uL (4.7-6.1) Hemoglobin 15.1 g/dL (14.0-18.0) Hematocrit 44.6 % (42-52) Mean Corpuscular Volume 88.1 fL (80-100) Mean Corpuscular Hemoglobin 29.8 pg (25-34) Mean Corpuscular Hemoglobin Concent 33.9 g/dl (32-36) Platelet Count 157 K/uL (130-400) Mean Platelet Volume 10.8 fL (7.4-10.4) Neutrophils (%) (Auto) 70.8 % Lymphocytes (%) (Auto) 19.0 % Monocytes (%) (Auto) 7.9 % Eosinophils (%) (Auto) 1.3 % Basophils (%) (Auto) 0.6 % Neutrophils # (Auto) 4.96 K/uL (1.4-6.5) Lymphocytes # (Auto) 1.33 K/uL (1.2-3.4) Monocytes # (Auto) 0.55 K/uL (0.11-0.59) Eosinophils # (Auto) 0.09 K/uL (0-0.5) Basophils # (Auto) 0.04 K/uL (0-0.2) RDW Standard Deviation 47.1 fL (36.4-46.3) RDW Coefficient of Variation 14.7 % (11.5-14.5) Immature Granulocyte % (Auto) 0.4 % Immature Granulocyte # (Auto) 0.03 K/uL (0.00-0.02) Prothrombin Time 10.4 SECONDS (9.0-12.0) Prothromb Time International Ratio 1.0 (0.9-1.1) Activated Partial Thromboplast Time 24.8 SECONDS (21.0-31.0) Partial Thromboplastin Ratio 1.0 Anion Gap 6.0 mmol/L (3-11) Est Creatinine Clear Calc Drug Dose 46.4 ml/min Estimated GFR () 55.7 Estimated GFR (Non- 48.0 BUN/Creatinine Ratio 14.7 (10-20) Estimated Average Glucose 120 mg/dl Hemoglobin A1c 5.8 % (4.5-5.6) Calcium Level 8.8 mg/dl (8.5-10.1) Magnesium Level 1.9 mg/dl (1.8-2.4) Total Bilirubin 1.0 mg/dl (0.2-1) Direct Bilirubin 0.2 mg/dl (0-0.2) Aspartate Amino Transf (AST/SGOT) 16 U/L (15-37) Alanine Aminotransferase (ALT/SGPT) 27 U/L (12-78) Alkaline Phosphatase 54 U/L (45-117) Total Creatine Kinase 40 U/L (39-308) Creatine Kinase MB 1.7 ng/ml (0.5-3.6) Creatine Kinase MB Ratio 4.3 (0-3.0) Troponin I 0.019 ng/ml (0-0.045) Total Protein 6.7 gm/dl (6.4-8.2) Albumin 3.5 gm/dl (3.4-5.0) Urine Opiates Screen NEG (NEG) Urine Methadone, Qualitative NEG (NEG) Urine Barbiturates NEG (NEG) Urine Phencyclidine (PCP) Level NEG (NEG) Ur Amphetamine/Methamphetamine NEG (NEG) MDMA (Ecstasy) Screen NEG (NEG) Urine Benzodiazepines Screen NEG (NEG) Urine Cocaine Metabolite NEG (NEG) Urine Marijuana (THC) NEG (NEG) Laboratory results reviewed by me. Medications Administered Medications (Trade) Dose Ordered Sig/Umesh Route Start Time Stop Time Status Last Admin Dose Admin Alteplase, Recombinant 70.2 mg/Empty Bag 70.2 ml @ 70.2 mls/hr 0900 ONCE IV 12/02/17 09:00 12/02/17 09:59 DC 12/02/17 09:22 70.2 MLS/HR Alteplase, Recombinant 7.8 mg/Syringe 7.8 ml @ 7.8 mls/min 0900 ONCE IV 12/02/17 09:00 12/02/17 09:01 DC 12/02/17 09:22 7.8 MLS/MIN Lidocaine HCl (Afrin W/ Lidocaine 4%) 4 ml STK-MED ONCE .ROUTE 12/02/17 10:08 12/02/17 10:09 DC 12/02/17 10:08 4 ML Procedure Anterior Nasal Packing Indication: epistaxis Verbal consent obtained. Risks and benefits were explained with the usual customary discussion. A time out was taken. The left naris was prepped with Afrin and lidocaine. A 5.5-cm nasal balloon was placed in a standard fashion. The patient tolerated this well. Hemostasis was achieved. No complications. ECG Per My Interpretation Indication: weakness Rate (beats per minute): 83 Rhythm: other (sinus rhythm with fusion complexes) Findings: RBBB, other (no ST elevation) ED Course 0817: The patient arrived in the department and a stroke alert was called. 0818: The patient was taken emergently to CT. 0826: The patient was evaluated in room B9. A complete history and physical exam was performed. 0836: I spoke with Dr. Reagan of neurology at [facility]. He will evaluate the patient via TeleStroke. 0841: I updated the patient and his daughter and they are in agreement with the treatment plan at this time. 0850: I spoke with Dr. Matias. We discussed the patient's case. The patient will be evaluated by the [facility] for further management. 0856: I reassessed the patient and Dr. Reagan was evaluating the patient via TeleStroke at this time. 0900: Alteplase Recombinant 7.8 mg IV 0941: I spoke with Dr. Reagan of [place] [facility] again at this time. We discussed the patient's results and treatment plan. 0949: I reassessed the patient at this time. He is resting comfortably. I discussed the results and treatment plan with the patient and his daughter. I answered all pertaining questions that they had. They expressed understanding and verbalized agreement. The patient is awaiting MRI. 1007: The patient developed a nose bleed. I reassessed him and placed a rhino pack in the left naris. Please see above procedure note for further details. Medical Decision Differential diagnoses includes stroke or intracranial bleeding, anemia, electrolyte imbalance, infection, medication reaction, drug reaction. There is no leukocytosis or concerning anemia. No significant electrolyte abnormality, kidney failure or hepatitis. No coagulopathy. Urine tox is negative. EKG shows a sinus rhythm, no acute ischemia. Cardiac enzyme testing 1 is not consistent with acute cardiac injury. Brain CT shows no acute bleed or mass effect. The patient presents with left-sided weakness. He had stroke findings by exam. A stroke alert was called. The patient was seen by the [place] neurologist via telemedicine. After discussion with the patient and family, TPA was felt warranted. This was given IV. Shortly after the TPA was given, the patient developed left sided epistaxis- this was the side of the nose that had been bleeding last week. I did place a 5.5 cm Rhino pack. This did stop the bleeding. The patient is going to be brought into the hospital for a stroke workup. He did present with strokelike symptoms and has received TPA. Right now, he seems to be resting comfortably. I spoke with the on-call hospitalist. Case management has been involved. Medication Reconcilliation Current Medication List: was personally reviewed by me Blood Pressure Screening Patient's blood pressure: Elevated blood pressure Blood pressure disposition: Referred to PCP Consults Time Called: 0834 Consulting Physician: Dr. Reagan Returned Call: [address] Reagan of neurology at [facility]. He will evaluate the patient via TeleStroke. Additional Consults: Time Called: 0849 Consulted Physician: Dr. Matias Returned Call: 0850 Additional Comments: I spoke with Dr. Matias. We discussed the patient's case. The patient will be evaluated by the [facility] for further management. Time Called: 0941 Consulted Physician: Dr. Reagan Returned Call: 0941 Additional Comments: I spoke with Dr. Reagan of [place] [facility] again at this time. We discussed the patient's results and treatment plan. Impression Primary Impression: CVA (cerebral vascular accident) Additional Impression: Left-sided weakness Critical Care I have personally spent greater than 35 minutes of critical care time in the direct management of this patient. This includes bedside care, interpretation of diagnostic studies, and testing, discussion with consultants, patient, and family members, and other required patient management activities. This 35 minutes is in excess of all separately billable procedures. Scribe Attestation The scribe's documentation has been prepared under my direction and personally reviewed by me in its entirety. I confirm that the note above accurately reflects all work, treatment, procedures, and medical decision making performed by me. Departure Information Dispostion Being Evaluated By Hospitalist Referrals Daryn Pettit M.D. (PCP) Patient Instructions My [facility] Stroke History Time Last Known Well [phone] Stroke t-PA Criteria Reviewed Meets criteria for t-PA Reason t-PA Not Given Treatment provided - N/A Problem Qualifiers
[2017-12-02] MEDS ORDERED: ALTEPLASE IV ONE (09:00)
[2017-12-02] MEDS ORDERED: RECOMBINANT IV ONE (09:00)
[2017-12-02] MEDS ORDERED: SET 2260-0500 IV ONE (09:00)
[2017-12-02] MEDS ORDERED: ALTEPLASE, RECOMBINANT INJ 7.8 MG in SYRINGE 0 ML IV ONE (09:00)
[2017-12-02 09:03] LABS: CALCIUM 8.8 mg/dl (8.5-10.1); CREATININE 1.37 mg/dl (0.60-1.40); POTASSIUM 3.8 mmol/L (3.5-5.1)
[2017-12-02 09:09] LABS: CKMB 1.7 ng/ml (0.5-3.6)
[2017-12-02] MEDS ORDERED: ACETAMINOPHEN 325 MG TAB PO PRN (10:00)
[2017-12-02] MEDS ORDERED: PHARMACIST DISCHARGE MED REC CONSULT PRN (10:00)
[2017-12-02] MEDS ORDERED: NITROGLYCERIN 0.4 MG SL PER TAB CHARGE UT PRN (10:00)
[2017-12-02] MEDS ORDERED: ICU PROTOCOL FOR HYPERGLYCEMIA PRN (10:00)
[2017-12-02] MEDS ORDERED: LIDOCAINE 4% W/AFRIN NASAL SOLN 4ML ONE (10:08)
--- NOTE | 2017-12-02 10:18 | History and Physical ---
History & Physical Date & Time of Service: Dec 02, 2017 at 10:17 Chief Complaint: Cva Symptoms Primary Care Physician: Daryn Pettit M.D. History of Present Illness Source: patient, family Mr. Singleton is an 82 y/o male with PMHx of CAD with STEMI and PCI x 4, HLD (off Statin), HTN, Pulmonary Emphysema/COPD, and H/O Lung CA S/P Resection (1998) who presents to the ED for L sided numbness/weakness that started this AM. Patient reports that he was his normal self when he woke up and ate breakfast. Last known well was approx. [phone] when he was sitting in his chair and developed L sided numbness and weakness of his upper and lower extremities. Also noted L facial droop. Speech was largely unaffected but did have one episode of aphasia that has since resolved. He has no prior H/O CVAs or arrhythmias. He is currently on ASA and Plavix for his CAD and took both medications this AM. He had telemedicine consult and tPA administered at approx. 0930. Patient reporting some improvement with his L sided deficits but not complete resolution. He had an associated L nasal bleed that was packed by ED physician. No other acute bleeding noted. He also complains of a mild ERICKSON that started with the L sided deficits without visual changes and has not worsened since administering tPA. Also reporting L lower rib discomfort that started this AM as well. He denies falls or trauma to this area. Patient has been dealing with URI x 1-2 months. He has completed 3 rounds antibiotics and multiple steroids. He currently is finishing a steroid taper. States his URI has improved but not resolved. Still with intermittent wheezing. Feels that he is having a lot of sinus congestion and post-nasal drip. Past Medical/Surgical History Medical Problems: (1) Appendectomy Status: Resolved (2) Diverticulosis Colon (W/O Ment Of Hemorrhage) Status: Chronic (3) Emphysematous Bleb Status: Chronic (4) Knee Joint Replacement Status Status: Resolved (5) Lobectomy of lung Status: Resolved (6) Mal Aleks Bronch/Lung Nos Status: Resolved (7) Mal Aleks Upper Lobe Lung Status: Resolved (8) Pneumonia, Organism Nos Status: Resolved Surgical Problems: (1) History of cardiac cath Status: Resolved (2) History of cardiac catheterization Status: Chronic (3) Stented coronary artery Status: Chronic Family History Cancer Diabetes mellitus Heart disease Hypertension Lung disease Social History Smoking Status: Never Smoker Smokeless Tobacco Use: No Alcohol Use: none Drug Use: none Marital Status: Housing status: lives with family Occupational Status: retired Immunizations History of Influenza Vaccine: Yes History of Tetanus Vaccine?: Yes History of Pneumococcal: Yes History of Hepatitis B Vaccine: No Multi-Drug Resistant Organisms History of MDRO: No Allergies Coded Allergies: Atorvastatin (Unverified Allergy, Unknown, ., 12/02/17) Cephalosporins (Verified Allergy, Unknown, 12/02/17) Fluticasone (Unverified Allergy, Unknown, ., 12/02/17) Fluvastatin (Unverified Allergy, Unknown, ., 12/02/17) Iodinated Diagnostic Agents (Verified Allergy, Unknown, `, 12/02/17) Lisinopril (Unverified Allergy, Unknown, ., 12/02/17) Milk Protein Extract (Unverified Allergy, Unknown, ., 12/02/17) Oxycodone (Verified Allergy, Unknown, HIVES, 12/02/17) ABLE TO TAKE TYLENOL Penicillins (Verified Allergy, Unknown, 12/02/17) Rosuvastatin (Unverified Allergy, Unknown, ., 12/02/17) Salmeterol (Unverified Allergy, Unknown, ., 12/02/17) Home Medications Scheduled Aspirin (Aspirin Ec), 81 MG PO DAILY Carvedilol (Carvedilol), 1 TAB PO BID Cholecalciferol (Vitamin D3), 1 CAP PO DAILY Clopidogrel (Plavix), 75 MG PO DAILY Ketoconazole (Ketoconazole), 1 APPLN TOP BID Losartan Potassium (Losartan Potassium), 1 TAB PO DAILY Tiotropium [place] (Spiriva Respimat), 1 CAP INH DAILY Scheduled PRN Albuterol Sulf (Proventil 0.083% 2.5MG/3ML), 1 DOSE NEB Q6H PRN for Wheezing Nitroglycerin (Nitrostat), 0.4 MG UT PRN PRN for Chest Pain Review of Systems Constitutional: No fever, No chills Eyes: + problem reported (mild headache), No worsening of vision, No diplopia ENT: + unusual epistaxis (L nare after tPA initiated - packing placed) Respiratory: + cough, + wheezing, + dyspnea on exertion, No dyspnea at rest, No hemoptysis Cardiovascular: No chest pain, No palpitations Abdomen: No pain, No nausea, No vomiting, No diarrhea, No constipation, No GI bleeding Musculoskeletal: No swelling, No calf pain Genitourinary - Male: No dysuria Integumentary: No rash Physical Exam Vital Signs Date Time Temp Pulse Resp B/P (MAP) Pulse Ox O2 Delivery O2 Flow Rate FiO2 12/02/17 10:16 71 22 171/90 97 Room Air 12/02/17 10:09 76 22 159/87 97 Room Air 12/02/17 09:46 82 22 137/85 96 Room Air 12/02/17 09:30 78 22 155/88 96 Room Air 12/02/17 09:22 80 24 170/90 12/02/17 09:15 84 24 170/91 97 Room Air 12/02/17 09:01 80 20 175/91 96 Room Air 12/02/17 08:45 86 22 160/90 97 Room Air 12/02/17 08:42 98 Room Air 12/02/17 08:38 80 22 146/85 98 Room Air 12/02/17 08:35 85 12/02/17 08:28 36.8 88 18 203/112 96 Room Air General Appearance: WD/WN, no apparent distress Head: normocephalic, atraumatic Eyes: sclerae normal ENT: hearing grossly normal, + pertinent finding (pharynx minimally erythematous) Neck: supple, no JVD, + adenopathy present (anterior cervical chain b/l) Respiratory/Chest: no respiratory distress, no accessory muscle use, + rhonchi (bases b/l with minimal exp. wheeze) Cardiovascular: regular rate, rhythm, no gallop, no murmur Abdomen/GI: normal bowel sounds, non tender, soft Back: normal inspection Extremities/Musculoskelatal: no calf tenderness, no pedal edema Neurologic/Psych: alert, normal mood/affect, oriented x 3, + facial droop ( minimal L side), + motor weakness (RUE and RLE WNL; LUE 4/5 and LLE 4/5 strength ; tremulous with raising arm and leg; Romberg +; HAKEEM intact to RUE but not LUE; unable to do L heel/avila testing) Skin: normal color, warm/dry Diagnostics Laboratory Results Results Past 24 Hours Test 12/02/17 08:18 12/02/17 08:33 12/02/17 09:54 Range/Units White Blood Count 7.00 4.8-10.8 K/uL Red Blood Count 5.06 4.7-6.1 M/uL Hemoglobin 15.1 14.0-18.0 g/dL Hematocrit 44.6 42-52 % Mean Corpuscular Volume 88.1 80-100 fL Mean Corpuscular Hemoglobin 29.8 25-34 pg Mean Corpuscular Hemoglobin Concent 33.9 32-36 g/dl Platelet Count 157 130-400 K/uL Mean Platelet Volume 10.8 7.4-10.4 fL Neutrophils (%) (Auto) 70.8 % Lymphocytes (%) (Auto) 19.0 % Monocytes (%) (Auto) 7.9 % Eosinophils (%) (Auto) 1.3 % Basophils (%) (Auto) 0.6 % Neutrophils # (Auto) 4.96 1.4-6.5 K/uL Lymphocytes # (Auto) 1.33 1.2-3.4 K/uL Monocytes # (Auto) 0.55 0.11-0.59 K/uL Eosinophils # (Auto) 0.09 0-0.5 K/uL Basophils # (Auto) 0.04 0-0.2 K/uL RDW Standard Deviation 47.1 36.4-46.3 fL RDW Coefficient of Variation 14.7 11.5-14.5 % Immature Granulocyte % (Auto) 0.4 % Immature Granulocyte # (Auto) 0.03 0.00-0.02 K/uL Prothrombin Time 10.4 9.0-12.0 SECONDS Prothromb Time International Ratio 1.0 0.9-1.1 Activated Partial Thromboplast Time 24.8 21.0-31.0 SECONDS Partial Thromboplastin Ratio 1.0 Sodium Level 141 136-145 mmol/L Potassium Level 3.8 3.5-5.1 mmol/L Chloride Level 108 98-107 mmol/L Carbon Dioxide Level 28 21-32 mmol/L Anion Gap 6.0 3-11 mmol/L Blood Urea Nitrogen 20 7-18 mg/dl Creatinine 1.37 0.60-1.40 mg/dl Est Creatinine Clear Calc Drug Dose 46.4 ml/min Estimated GFR () 55.7 Estimated GFR (Non- 48.0 BUN/Creatinine Ratio 14.7 10-20 Random Glucose 133 70-99 mg/dl Calcium Level 8.8 8.5-10.1 mg/dl Magnesium Level 1.9 1.8-2.4 mg/dl Total Creatine Kinase 40 39-308 U/L Creatine Kinase MB 1.7 0.5-3.6 ng/ml Creatine Kinase MB Ratio 4.3 0-3.0 Troponin I 0.019 0-0.045 ng/ml Diagnostic Radiology BRAIN COMBO FINDINGS: Diffusion-weighted images are considered negative for an acute ischemic event. Generalized cerebellar as well as cerebral atrophy are noted. This is particularly prominent over the cerebral convexities and right cerebral hemisphere. The ventricular system is midline. Sella and parasellar regions are unremarkable. No abnormal postcontrast enhancement. IMPRESSION: Atrophy. Scattered encephalomalacia considered chronic. No acute process MRA OF THE INTRACRANIAL CIRCULATION WITHOUT CONTRAST FINDINGS: Bilateral M1, M2, A1 and A2 segments are patent. There is no abrupt vessel cut off. There is a 2 mm aneurysm arising from the left lateral aspect of the left cavernous carotid shown on axial image 108 of 224. There is a 2 mm aneurysm arising from the ophthalmic portion of the right internal carotid artery shown on image 113. There are no additional intracranial aneurysms. Posterior circulation is intact. IMPRESSION: 1. No abrupt vessel cut off. 2.Two tiny intracranial aneurysms, each measuring 2 mm, arising from the left cavernous carotid and ophthalmic portion of the right internal carotid artery. CHEST ONE VIEW PORTABLE FINDINGS: Postlaminectomy changes are evident on the left. There is elevation left hemidiaphragm. There is left-sided volume loss. There is increased density left hilum with adjacent fibrotic spiculations. There is no acute parenchymal consolidation. There is stable left apical pleural thickening. There is no failure. There are no significant pleural effusions.[ IMPRESSION: Stable postsurgical changes on the left. No acute findings. CT OF THE HEAD WITHOUT CONTRAST FINDINGS: No acute intracranial hemorrhage, midline shift or mass effect is present. Ventricular system is normal. Basilar cisterns are patent. Slight prominence of the extra-axial CSF spaces is unchanged since exam of February 10, 2017. There are no findings to suggest acute dural sinus thrombosis or acute territorial infarct. There are no significant calvarial abnormalities. Mastoid air cells are clear. IMPRESSION: No acute intracranial findings. EKG Sinus rhythm with Fusion complexes Right bundle branch block Left anterior fascicular block Bifascicular block Septal infarct , age undetermined Abnormal ECG When compared with ECG of 10-FEB-2017 11:07, Fusion complexes are now Present Right bundle branch block is now Present Septal infarct is now Present Impression Assessment and Plan Mr. Singleton is an 82 y/o male with PMHx of CAD with STEMI and PCI x 4, HLD (off Statin), HTN, Pulmonary Emphysema/COPD, and H/O Lung CA S/P Resection (1998) who presents to the ED for L sided numbness/weakness that started this AM. CVA with L-Sided Residual Deficits S/P tPA: - Head CT and MRI unremarkable after administration of tPA will continue to monitor in ICU for any further signs of bleeding or acute changes in mentation - Had a ERICKSON that started with neurological symptoms but did not worsen with tPa administration - low threshold for F/U Head CT without contrast pending any changes in mentation or ERICKSON - Allow permissive HTN and will hold outpatient Carvedilol and Losartan - Hold home ASA and Plavix - Continue stroke with tPA protocol and will utilize day two protocol URI Symptoms with Underlying Pulmonary Emphysema/COPD: - Complete steroid taper of 5 mg x 3 more days - Duonebs DALLIN and PRN; Continue Spiriva - He is afebrile and without leukocytosis - no infiltrate on CXR CAD S/P STEMI and PCI x 4: - Follows with Dr. Sahu - has been stable from cardiac standpoint as outpatient DVT Prophylaxis: SCDs due to tPA Code Status: FULL RESUSCITATION Disposition: - Monitor in ICU Critical care time of 45 minutes including beside assessment, discussion with patient and family, coordination with other providers, and therapeutic intervention. Level of Care Critical Care Advanced Directives Existing Advance Directive: Yes Existing Living Will: Yes Existing Power of Windows Desktop Support: Yes Resuscitation Status FULL RESUSCITATION VTE Prophylaxis VTE Risk Assessment Done? Y/N: Yes Risk Level: Moderate Given or contraindicated: SCD's Note Total Time: Critical Care 30 - 74 minutes Attending Attestation & Admission Note: Patient seen/examined, chart reviewed, care plan d/w MORGAN Calix. I agree w/ the mccord components of her documentation. 82yo male with CAD and COPD who presented with left-sided weakness, left facial droop, and question of minimal speech impairment. Symptoms began acutely this am. Stroke alert called upon ER presentation and decision was made to give tPA. I saw the patient in the ICU following tPA administration and he & his family confirmed his left-sided weakness has improved. No speech issues. No obvious swallowing issues. No prior h/o stroke. PMH, PSH, allergies, meds, sochx, famhx, ros - reviewed VSS, BPs high gen - NAD, speech clear, no facial droop neck - no bruits heart - RRR, s1,s2, no obvious murmur lungs - b/l wheezes abd - soft, NT ext - no edema neuro - strength 4/5 LUE/LLE, 5/5 RUE/RLE, DTRs 2+ b/l ENT - packing in left nare CT head, MRI/MRA head/neck - reviewed echo reviewed A/P: 1. right sided stroke with resulting left-sided weakness s/p TPA - symptoms were mainly motor - basal ganglia/lacunar? But DWI imaging on MRI without acute event. cont tele, neuro consult, PT/OT/speech cont aspirin/plavix for now - change to aggrenox for secondary stroke prevention ? Defer to neuro 2. HTN - allow permissive HTN for 24 hours then gradually reduce BPs 3. CAD - no ischemic symptoms at this time. 4. DVT proph - SCDs for now, then ultimately lovenox daily 5. COPD with current exacerbation - cxr without obvious infiltrates; consider sinus imaging given his sinus complaints (he has had numerous antibiotics this winter along with several courses of prednisone). finish prednisone. 6. epistaxis - family reports this is an issue at home as well; certainly made worse by tPA; appreciate critical rental boats caretaker's help with this critical care time - 45 minutes in total Zain Mckeon MD
[2017-12-02] MEDS ORDERED: ALBUT/IPRATROP 3MG/0.5MG NEB 3 ML VIAL INH PRN (10:30)
[2017-12-02 11:08] LABS: ALBUMIN 3.5 gm/dl (3.4-5.0); TOTAL PROTEIN 6.7 gm/dl (6.4-8.2)
--- NOTE | 2017-12-02 11:17 | DIAGNOSTIC IMAGING REPORT ---
CHEST ONE VIEW PORTABLE CLINICAL HISTORY: SOB; URI symptoms x 1 month COMPARISON STUDY: 11/11/2017 FINDINGS: Postlaminectomy changes are evident on the left. There is elevation left hemidiaphragm. There is left-sided volume loss. There is increased density left hilum with adjacent fibrotic spiculations. There is no acute parenchymal consolidation. There is stable left apical pleural thickening. There is no failure. There are no significant pleural effusions.[ IMPRESSION: Stable postsurgical changes on the left. No acute findings. Electronically signed by: Ortega Nino M.D. 12/02/2017 11:16 AM Dictated Date/Time: 12/02/2017 11:15 AM
[2017-12-02 11:45] LABS: HEMOGLOBIN A1C 5.8 % (4.5-5.6)
[2017-12-02] MEDS: ALBUT/IPRATROP 3MG/0.5MG NEB 3 ML VIAL INH SCH ×3 (11:50→19:04)
--- NOTE | 2017-12-02 12:57 | DIAGNOSTIC IMAGING REPORT ---
BRAIN COMBO CLINICAL HISTORY: Stroke mental status change COMPARISON STUDY: CT brain same date TECHNIQUE: Utilizing a 1.5 Zeynep magnet and dedicated coil, multiplanar, multiecho imaging of the brain was performed pre and postcontrast administration. IV administration of 7 mL of Gadavist contrast was uneventful. FINDINGS: Diffusion-weighted images are considered negative for an acute ischemic event. Generalized cerebellar as well as cerebral atrophy are noted. This is particularly prominent over the cerebral convexities and right cerebral hemisphere. The ventricular system is midline. Sella and parasellar regions are unremarkable. No abnormal postcontrast enhancement. IMPRESSION: Atrophy. Scattered encephalomalacia considered chronic. No acute process The above report was generated using voice recognition software. It may contain grammatical, syntax or spelling errors. Electronically signed by: Austin Mayberry M.D. 12/02/2017 12:56 PM Dictated Date/Time: 12/02/2017 12:48 PM
--- NOTE | 2017-12-02 12:59 | DIAGNOSTIC IMAGING REPORT ---
MRA OF THE INTRACRANIAL CIRCULATION WITHOUT CONTRAST CLINICAL HISTORY: Cerebrovascular accident. Left-sided weakness. COMPARISON STUDY: Head CT February 10, 2017 and December 02, 2017. TECHNIQUE: Utilizing a 1.5 Zeynep magnet and 3-D [id number] technique, unenhanced MRA of the intracranial circulation was obtained. FINDINGS: Bilateral M1, M2, A1 and A2 segments are patent. There is no abrupt vessel cut off. There is a 2 mm aneurysm arising from the left lateral aspect of the left cavernous carotid shown on axial image 108 of 224. There is a 2 mm aneurysm arising from the ophthalmic portion of the right internal carotid artery shown on image 113. There are no additional intracranial aneurysms. Posterior circulation is intact. IMPRESSION: 1. No abrupt vessel cut off. 2.Two tiny intracranial aneurysms, each measuring 2 mm, arising from the left cavernous carotid and ophthalmic portion of the right internal carotid artery. Electronically signed by: Dalton Moreno M.D. 12/02/2017 12:58 PM Dictated Date/Time: 12/02/2017 12:50 PM
--- NOTE | 2017-12-02 13:12 | DIAGNOSTIC IMAGING REPORT ---
MRA NECK COMBO HISTORY: Mental status change CVA TECHNIQUE: [id number] and gadolinium-enhanced MRA of the neck was performed both before and after the intravenous administration of contrast. All measurements were calculated based on NASCET criteria. COMPARISON STUDY: None. FINDINGS: The aortic arch and proximal great vessels are widely patent. There is no significant stenosis, occlusion, or dissection identified within the bilateral common carotid, internal carotid, or vertebral arteries. Mild plaque formation at the carotid bifurcations bilaterally. IMPRESSION: No significant stenosis, occlusion, or dissection identified within the carotid or vertebral arteries. Mild plaque formation of the carotid bifurcations. The above report was generated using voice recognition software. It may contain grammatical, syntax or spelling errors. Electronically signed by: Asutin Mayberry M.D. 12/02/2017 1:11 PM Dictated Date/Time: 12/02/2017 12:57 PM
[2017-12-02] MEDS ORDERED: ALTEPLASE, RECOMBINANT 100 MG VIAL IV ONE (13:44)
[2017-12-02] MEDS ORDERED: PRIMARY PLUMSET, PE LINED TUBING, 113 IN, NON-DEHP (2260-0500) IV ONE (13:44)
[2017-12-02] MEDS ORDERED: PERFLUTREN LIPID MICROSPHERE (DEFINITY) IV ONE (14:54)
--- NOTE | 2017-12-02 15:55 | Critical Care Consultation ---
Critical Care Consultation Date of Consultation: Dec 02, 2017. Attending Physician: Zain Mckeon MD Reason for Consultation: CVA, status post TPA. History of Present Illness This is 82-year-old gentleman with a history of coronary artery disease status post 4 vessel stenting, history of lung CA status post right no lobe resection, COPD with 3 exacerbations in the past month requiring treatment with prednisone , presented to the hospital after he started having left-sided headache followed by left-sided weakness in the upper and lower extremity. Slurred speech was noted and facial droop as well but the daughter who is medical. Patient was brought to the emergency room and stroke alert was initiated. Due to his symptoms, CAT scan of the head was done without evidence of intracranial catastrophe, and the patient started on TPA per protocol. His initial NIH score was apparently 5. The patient after TPA was admitted to the ICU for further monitoring and neurologic follow-up. The patient had also MRI and MRA in which the MRI did not reveal any acute CVA but showed in fact atrophy consistent with chronic disease. When I interviewed the patient, he was answering questions or following commands. He did not have any slurred speech and he was speaking in full sentences. No facial droop was reported. The patient however did have epistaxis treated with nostril tamponade by the ED. His NIH score in the ICU was only 3. His physical exam revealed vital signs are stable except for blood pressure which was 187/91, heart rate 88 sinus rhythm, S1-S2 regular rate and rhythm, distant breath sounds bilaterally, abdomen is benign, no edema in the periphery. Neurologically, the patient cranial nerve II-12 were intact, the patient has 3 over 5 on the left side handgrip and 3 over 5 in the lower extremity. 5 over 5 in the right side. Babinski bilateral downgoing toes. No sensational loss. Minimal headache but no visual disturbances. The patient does have an area of tenderness at the left chest wall area without any specific site. Family History Cancer Diabetes mellitus Heart disease Hypertension Lung disease Social History Smoking Status: Former Smoker Smokeless Tobacco Use: No Alcohol Use: none Drug Use: none Marital Status: Housing Status: lives with family, unknown Occupation Status: retired Allergies Coded Allergies: Atorvastatin (Unverified Allergy, Unknown, ., 12/02/17) Cephalosporins (Verified Allergy, Unknown, 12/02/17) Fluticasone (Unverified Allergy, Unknown, ., 12/02/17) Fluvastatin (Unverified Allergy, Unknown, ., 12/02/17) Iodinated Diagnostic Agents (Verified Allergy, Unknown, `, 12/02/17) Lisinopril (Unverified Allergy, Unknown, ., 12/02/17) Milk Protein Extract (Unverified Allergy, Unknown, ., 12/02/17) Oxycodone (Verified Allergy, Unknown, HIVES, 12/02/17) ABLE TO TAKE TYLENOL Penicillins (Verified Allergy, Unknown, 12/02/17) Rosuvastatin (Unverified Allergy, Unknown, ., 12/02/17) Salmeterol (Unverified Allergy, Unknown, ., 12/02/17) Home Medications Scheduled Aspirin (Aspirin Ec), 81 MG PO DAILY Carvedilol (Carvedilol), 1 TAB PO BID Cholecalciferol (Vitamin D3), 1 CAP PO DAILY Clopidogrel (Plavix), 75 MG PO DAILY Ketoconazole (Ketoconazole), 1 APPLN TOP BID Losartan Potassium (Losartan Potassium), 1 TAB PO DAILY Tiotropium Homer (Spiriva Respimat), 1 CAP INH DAILY Scheduled PRN Albuterol Sulf (Proventil 0.083% 2.5MG/3ML), 1 DOSE NEB Q6H PRN for Wheezing Nitroglycerin (Nitrostat), 0.4 MG UT PRN PRN for Chest Pain Current Inpatient Medications Current Inpatient Medications Medications (Trade) Dose Ordered Sig/Umesh Route Start Time Stop Time Status Last Admin Dose Admin Miscellaneous Information (Pharmacist Discharge Med Rec Consult) 1 ea UD PRN N/A 12/02/17 10:00 01/01/18 09:59 Acetaminophen (Tylenol Tab) 650 mg Q4H PRN PO 12/02/17 10:00 01/01/18 09:59 Miscellaneous Information (Icu Protocol For Hyperglycemia) 1 ea PRN PRN N/A 12/02/17 10:00 12/04/17 09:59 Ketoconazole (Nizoral 2% Crm) 1 appln BID EXT 12/02/17 21:00 12/12/17 20:59 Nitroglycerin (Nitrostat Tab) 0.4 mg PRN PRN UT 12/02/17 10:00 01/01/18 09:59 Tiotropium Homer (Spiriva Handihaler Inhaler) 1 puff QAM INH 12/03/17 09:00 01/02/18 08:59 Prednisone (PredniSONE TAB) 5 mg DAILY PO 12/03/17 09:00 12/06/17 08:59 Albuterol/ Ipratropium (Duoneb) 3 ml Q4RWA INH 12/02/17 12:00 01/01/18 11:59 12/02/17 15:22 3 ML Albuterol/ Ipratropium (Duoneb) 3 ml Q2H PRN INH 12/02/17 10:30 01/01/18 10:29 Review of Systems Constitutional: No fever, No chills, No sweats, No weight loss, No weakness, No fatigue, No problem reported Eyes: No worsening of vision, No eye pain, No redness, No discharge, No diplopia, No problem reported ENT: + unusual epistaxis Respiratory: + cough, + shortness of breath Cardiovascular: No chest pain, No orthopnea, No PND, No edema, No claudication , No palpitations, No problem reported Abdomen: No pain, No nausea, No vomiting, No diarrhea, No constipation, No GI bleeding, No problem reported Musculoskeletal: No joint pain, No muscle pain, No swelling, No calf pain, No problem reported Genitourinary - Male: No hematuria, No dysuria, No urinary frequency, No urinary urgency, No urinary hesitancy, No urinary retention, No urinary incontinence, No penile discharge, No lesions, No impotence, No problem reported Neurologic: + weakness (left-sided upper and lower extremity with facial droop. Done on arrival. I did not witness these findings. In the ICU the facial droop improved.) Psychiatric: No depression symptoms, No anhedonism, No anxiety, No insomnia, No substance abuse, No problem reported Endocrine: No fatigue, No excessive thirst, No excessive urination, No problem reported Hematologic / Lymphatic: No abnormal bleeding/bruising, No clotting problems, No swollen lymph nodes, No night sweats, No problem reported Physical Exam Date Time Temp Pulse Resp B/P (MAP) Pulse Ox O2 Delivery O2 Flow Rate FiO2 12/02/17 15:22 84 12 95 Room Air 12/02/17 12:00 Room Air 12/02/17 10:53 77 22 161/95 95 12/02/17 10:32 74 22 161/95 96 Room Air 12/02/17 10:16 71 22 171/90 97 Room Air 12/02/17 10:09 76 22 159/87 97 Room Air 12/02/17 10:00 97 Room Air 12/02/17 09:46 82 22 137/85 96 Room Air 12/02/17 09:30 78 22 155/88 96 Room Air 12/02/17 09:22 80 24 170/90 12/02/17 09:15 84 24 170/91 97 Room Air 12/02/17 09:01 80 20 175/91 96 Room Air 12/02/17 08:45 86 22 160/90 97 Room Air 12/02/17 08:42 98 Room Air 12/02/17 08:38 80 22 146/85 98 Room Air 12/02/17 08:35 85 12/02/17 08:28 36.8 88 18 203/112 96 Room Air General Appearance: well-appearing, no apparent distress Eyes: PERRLA, EOMI ENT: other (epistaxis left nostril.) Neck: normal range of motion, no tenderness, trachea midline Respiratory: breath sounds normal, clear to auscultation Cardiovasular: regular rate/rhythm, normal S1S2, no M/G/R, no murmur Abdomen: non tender, no rebound, no masses Upper Extremities: no edema Lower Extremities: no edema Neuro: alert, oriented x 3, focal weakness (3 over 5 left lower extremity and 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), other (Babinski downgoing toes bilaterally.) Laboratory Results Last 24 Hours Test 12/02/17 08:30 12/02/17 08:33 12/02/17 09:35 Bedside Prothrombin Time INR 1.0 White Blood Count 7.00 K/uL Red Blood Count 5.06 M/uL Hemoglobin 15.1 g/dL Hematocrit 44.6 % Mean Corpuscular Volume 88.1 fL Mean Corpuscular Hemoglobin 29.8 pg Mean Corpuscular Hemoglobin Concent 33.9 g/dl Platelet Count 157 K/uL Mean Platelet Volume 10.8 fL Neutrophils (%) (Auto) 70.8 % Lymphocytes (%) (Auto) 19.0 % Monocytes (%) (Auto) 7.9 % Eosinophils (%) (Auto) 1.3 % Basophils (%) (Auto) 0.6 % Neutrophils # (Auto) 4.96 K/uL Lymphocytes # (Auto) 1.33 K/uL Monocytes # (Auto) 0.55 K/uL Eosinophils # (Auto) 0.09 K/uL Basophils # (Auto) 0.04 K/uL RDW Standard Deviation 47.1 fL RDW Coefficient of Variation 14.7 % Immature Granulocyte % (Auto) 0.4 % Immature Granulocyte # (Auto) 0.03 K/uL Prothrombin Time 10.4 SECONDS Prothromb Time International Ratio 1.0 Activated Partial Thromboplast Time 24.8 SECONDS Partial Thromboplastin Ratio 1.0 Sodium Level 141 mmol/L Potassium Level 3.8 mmol/L Chloride Level 108 mmol/L Carbon Dioxide Level 28 mmol/L Anion Gap 6.0 mmol/L Blood Urea Nitrogen 20 mg/dl Creatinine 1.37 mg/dl Est Creatinine Clear Calc Drug Dose 46.4 ml/min Estimated GFR () 55.7 Estimated GFR (Non- 48.0 BUN/Creatinine Ratio 14.7 Random Glucose 133 mg/dl Estimated Average Glucose 120 mg/dl Hemoglobin A1c 5.8 % Calcium Level 8.8 mg/dl Magnesium Level 1.9 mg/dl Total Bilirubin 1.0 mg/dl Direct Bilirubin 0.2 mg/dl Aspartate Amino Transf (AST/SGOT) 16 U/L Alanine Aminotransferase (ALT/SGPT) 27 U/L Alkaline Phosphatase 54 U/L Total Creatine Kinase 40 U/L Creatine Kinase MB 1.7 ng/ml Creatine Kinase MB Ratio 4.3 Troponin I 0.019 ng/ml Total Protein 6.7 gm/dl Albumin 3.5 gm/dl Urine Opiates Screen NEG Urine Methadone, Qualitative NEG Urine Barbiturates NEG Urine Phencyclidine (PCP) Level NEG Ur Amphetamine/Methamphetamine NEG MDMA (Ecstasy) Screen NEG Urine Benzodiazepines Screen NEG Urine Cocaine Metabolite NEG Urine Marijuana (THC) NEG Diagnostic Results Reviewed imaging from head CT, head MRI, and MRA, all appeared to chronic changes only. Chest x-ray without significant abnormality except for hyperinflated lungs. Assessment & Plan #1 CVA, status post TPA, current NIH score is 3. #2 COPD, with frequent exacerbations. #3 history of lung CVA, lobectomy 1998. #4 coronary artery disease status post 4 stents placement in the past. #5 epistaxis, spontaneous, controlled with topical tamponade. #6 hypertension. Plan: #1 monitor in the ICU with a neurologic check frequently. #2 appreciate neurology input. #3 maintain the blood pressure as is, we'll treated if it is above than 200. Due to the epistaxis. #4 we'll follow NIH score. #5 we'll follow post CVA protocol. #6 sequential teds for now due to application of TPA. #7 bronchodilators. #8 enforcement of the epistaxis tamponade. #9 discussed with the staff and details. #10 PPI prophylaxis. #11 discussed with the daughter who was at the bedside with details. CCT 60 minutes.
--- NOTE | 2017-12-02 17:26 | ECHOCARDIOGRAM REPORT ---
*NOTICE TO RECEIVING [employer] This information is strictly Confidential and protected under [place] law. [place] law prohibits you from making any further disclosure of this information unless further disclosure is expressly permitted by the written consent of the person to whom it pertains or is authorized by law. A general authorization for the release of medical or other information is not sufficient for this purpose. Hospital accepts no responsibility if the information is made available to any other person, INCLUDING THE PATIENT. Interpretation Summary * Name: ESTUARDO PUGH Study Date: 12/02/2017 02:17 PM BP: 161/95 mmHg * Patient Location: [facility] HR: 77 * : 1935 (M/d/yyyy) Gender: Male Height: 72 in * Age: 82 yrs Ethnicity: CA Weight: 189 lb * Ordering Physician: Karen Calix * Referring Physician: Self, Referred * Performed By: Jacquelyn Oconnor RDCS * * Reason For Study: Cerebral ischemia/embolus * BSA: 2.1 m2 * -- Conclusions -- * 1. Normal left ventricular size and systolic function. Estimated EF 55-60%. No visualized wall motion abnormalities, but cannot exclude wall motion abnormalities given image quality. No left ventricular hypertrophy. Type 1 diastolic dysfunction. * 2. Aortic valve sclerosis mild, without significant aortic valvular stenosis. * 3. No visualized right to left inter atrial shunt following agitated saline injection. * 4. Normal estimated right ventricular systolic pressure. * 5. Technically difficult study, somewhat enhanced with IV Definity. * 6. No significant change from prior study on 07/05/2016. Procedure Details * A complete two-dimensional transthoracic echocardiogram was performed (2D, M-mode, Doppler and color flow Doppler). * A contrast injection of Definity was performed to improve assessment of LV function. * Contrast was injected into an intravenous site in the right arm. * One vial of Definity ultrasound contrast was diluted in normal saline to a total volume of 10 ml. A total of '2' ml of solution was administered during imaging. * Lot # [id number] of Definity utilized for procedure. * Expiration date 1 NOV 30. * The attending nurse who injected the contrast agent was Nannette Treviño RN. * A saline contrast injection was performed to assess for cardiac shunting. * The injection was performed through an intravenous line in the right arm. * The attending nurse who injected the saline contrast was Nannette Treviño RN. * A total of 20 cc of agitated saline was given. * The study was technically limited. * The study was technically difficult. * There were technical limitations due to patient'sbody habitus Left Ventricle * Normal left ventricular size and systolic function. Estimated EF 55-60%. No visualized wall motion abnormalities, but cannot exclude wall motion abnormalities given image quality. No left ventricular hypertrophy. Type 1 diastolic dysfunction. Right Ventricle * The right ventricle is not well visualized. * The right ventricular systolic function is normal as assessed by tricuspid annular plane systolic excursion (TAPSE) (normal >1.5 cm). Atria * The left atrial size is normal. * Right atrium not well visualized. * No visualized right to left inter atrial shunt following agitated saline injection. Mitral Valve * The mitral valve is grossly normal. * There is no mitral valve stenosis. * Significant mitral regurgitation is absent. Tricuspid Valve * The tricuspid valve is not well visualized, but is grossly normal. * There is no tricuspid stenosis. * There is mild tricuspid regurgitation. Aortic Valve * The aortic valve is trileaflet. * Aortic valve sclerosis mild, without significant aortic valvular stenosis. * No hemodynamically significant valvular aortic stenosis. * There is no significant aortic regurgitation. Pulmonic Valve * The pulmonic valve is not well visualized. * There is no pulmonic valvular stenosis. * There is no significant pulmonary regurgitation. Great Vessels * The aortic root is normal size. Pericardium/Pleural * There is no pericardial effusion. Great Vessels * Normal inferior vena cava size and collapsability with sniff indicates a normal right atrial pressure of 3 mmHg MMode 2D Measurements and Calculations IVSd 1.0 cm LVIDd 4.2 cm LVIDs 2.7 cm LVPWd 0.88 cm IVS/LVPW 1.2 FS 34.9 % EDV(Teich) 79.5 ml ESV(Teich) 28.2 ml EF(Teich) 64.5 % EDV(cubed) 75.1 ml ESV(cubed) 20.7 ml EF(cubed) 72.4 % LV mass(C)d 128.7 grams LV mass(C)dI 61.9 grams/m\S\2 SV(Teich) 51.3 ml SI(Teich) 24.6 ml/m\S\2 SV(cubed) 54.4 ml SI(cubed) 26.2 ml/m\S\2 Ao root diam 3.0 cm Ao root area 7.0 cm\S\2 LA dimension 2.1 cm LA/Ao 0.71 LVOT diam 2.0 cm LVOT area 3.1 cm\S\2 Doppler Measurements and Calculations MV E max chato 70.4 cm/sec MV A max chato 90.0 cm/sec MV E/A 0.78 MV dec time 0.24 sec Ao V2 max 88.2 cm/sec Ao max PG 3.1 mmHg Ao max PG (full) 0.52 mmHg ANA CRISTINA(V,A) 2.8 cm\S\2 ANA CRISTINA(V,D) 2.8 cm\S\2 LV V1 max PG 2.6 mmHg LV V1 max 80.5 cm/sec PA V2 max 107.2 cm/sec PA max PG 4.6 mmHg PA acc slope 423.1 cm/sec\S\2 PA acc time 0.15 sec TR max chato 238.9 cm/sec RVSP(TR) 25.8 mmHg RAP systole 3.0 mmHg PA pr(Accel) 12.5 mmHg
[2017-12-02] MEDS: KETOCONAZOLE 2% CR 15 GM TUBE EXT SCH (21:57)
[2017-12-03] VITALS (24 sets, daily range): BP systolic 121–187; BP diastolic 70–122; PULSE 61–94; TEMP 36.6–36.9; O2SAT 91–98
[2017-12-03] MEDS: ALBUT/IPRATROP 3MG/0.5MG NEB 3 ML VIAL INH SCH ×4 (07:08→18:45)
[2017-12-03] MEDS: TIOTROPIUM BROMIDE 5 PUFF/90 MCG INH INH SCH (08:19)
[2017-12-03] MEDS: KETOCONAZOLE 2% CR 15 GM TUBE EXT SCH ×2 (08:19→21:00)
[2017-12-03 09:45] LABS: BASO % 0.3 %; BASO ABS # 0.02 K/uL (0-0.2); EOS % 1.4 %; EOS ABS # 0.11 K/uL (0-0.5); HEMATOCRIT 47.3 % (42-52); HEMOGLOBIN 16.3 g/dL (14.0-18.0); IG# 0.04 K/uL (0.00-0.02); LYMPH % 13.8 %; LYMPH ABS # 1.08 K/uL (1.2-3.4); MEAN CELL VOLUME 87.4 fL (80-100); MEAN CORPUSCULAR HEMOGLOBIN 30.1 pg (25-34); MEAN CORPUSCULAR HGB CONC 34.5 g/dl (32-36); MEAN PLATELET VOLUME 11.1 fL (7.4-10.4); MONO % 7.7 %; NEUT % 76.3 %; NEUT ABS # 5.96 K/uL (1.4-6.5); PLATELET COUNT 138 K/uL (130-400); RED CELL DISTRIBUTION WIDTH CV 14.6 % (11.5-14.5); RED CELL DISTRIBUTION WIDTH SD 46.5 fL (36.4-46.3); WHITE BLOOD COUNT 7.81 K/uL (4.8-10.8)
[2017-12-03 10:11] LABS: CALCIUM 9.3 mg/dl (8.5-10.1); CREATININE 1.34 mg/dl (0.60-1.40)
[2017-12-03] MEDS ORDERED: CARVEDILOL 3.125 MG TAB PO ONE (10:11)
[2017-12-03] MEDS ORDERED: LOSARTAN POTASSIUM 25 MG TAB PO ONE (10:11)
[2017-12-03] MEDS ORDERED: CLOPIDOGREL BISULFATE 75 MG TAB PO ONE (10:11)
[2017-12-03] MEDS ORDERED: ASPIRIN 81 MG ECTAB PO ONE (10:11)
--- NOTE | 2017-12-03 10:26 | Hospitalist Progress Note ---
Hospitalist Progress Note Date of Service Dec 03, 2017. (Karen Calix PA-C) Subjective Pt evaluation today including: conversation w/ patient, conversation w/ family , physical exam, chart review, lab review, review of studies, review of inpatient medication list Patient seen and evaluated. No acute events overnight. Neurological symptoms completely resolved. Patient is alert and oriented. Speech clear. No further active bleeding. Has a headache today however this is different from the one yesterday. Pain is located in the L maxillary region and is likely from the nasal packing. Has had ongoing respiratory symptoms with post-nasal gtt and wheezing. Finishing up prednisone taper. Also complaining of mild pain with urination. UA looks clean but culture is pending. Constitutional: No fever, No chills Eyes: No worsening of vision ENT: + problem reported (nasal and maxillary pressure) Respiratory: + cough, + wheezing, No sputum, No shortness of breath Cardiovascular: No chest pain, No palpitations Abdomen: No pain, No nausea, No vomiting, No diarrhea, No constipation, No GI bleeding Musculoskeletal: No joint pain, No swelling, No calf pain Male : + dysuria Neurologic: No numbness/tingling Heme: No abnormal bleeding/bruising Skin: No rash (Karen Calix PA-C) Medications Current Inpatient Medications Medications (Trade) Dose Ordered Sig/Umesh Route Start Time Stop Time Status Last Admin Dose Admin Miscellaneous Information (Pharmacist Discharge Med Rec Consult) 1 ea UD PRN N/A 12/02/17 10:00 01/01/18 09:59 Acetaminophen (Tylenol Tab) 650 mg Q4H PRN PO 12/02/17 10:00 01/01/18 09:59 12/03/17 08:18 650 MG Miscellaneous Information (Icu Protocol For Hyperglycemia) 1 ea PRN PRN N/A 12/02/17 10:00 12/04/17 09:59 Ketoconazole (Nizoral 2% Crm) 1 appln BID EXT 12/02/17 21:00 12/12/17 20:59 12/03/17 08:19 1 APPLN Nitroglycerin (Nitrostat Tab) 0.4 mg PRN PRN UT 12/02/17 10:00 01/01/18 09:59 Tiotropium [place] (Spiriva Handihaler Inhaler) 1 puff QAM INH 12/03/17 09:00 01/02/18 08:59 12/03/17 08:19 1 PUFF Prednisone (PredniSONE TAB) 5 mg DAILY PO 12/03/17 09:00 12/06/17 08:59 12/03/17 08:20 5 MG Albuterol/ Ipratropium (Duoneb) 3 ml Q4RWA INH 12/02/17 12:00 01/01/18 11:59 12/03/17 07:08 3 ML Albuterol/ Ipratropium (Duoneb) 3 ml Q2H PRN INH 12/02/17 10:30 01/01/18 10:29 Acetaminophen/ Butalbital/ Caffeine (Fioricet Tab) 1 tab Q4H PRN PO 12/03/17 09:15 01/02/18 09:14 (Karen Calix, MARGARET) Objective Vital Signs Date Time Temp Pulse Resp B/P (MAP) Pulse Ox O2 Delivery O2 Flow Rate FiO2 12/03/17 09:22 84 17 158/122 (134) 94 Room Air 12/03/17 08:22 89 22 187/92 (123) 98 Room Air 12/03/17 08:00 Room Air 12/03/17 07:22 80 16 177/101 (126) 93 Room Air 12/03/17 07:09 87 16 94 Room Air 12/03/17 07:00 36.8 71 16 176/80 (112) 93 Room Air 12/03/17 06:22 70 19 167/91 (116) 95 Room Air 12/03/17 06:00 22 168/94 (118) 95 Room Air 12/03/17 05:22 80 18 160/92 (114) 95 Room Air 12/03/17 04:22 63 16 164/80 (108) 94 Room Air 12/03/17 04:00 Room Air 12/03/17 04:00 36.7 66 14 170/89 (116) 95 Room Air 12/03/17 03:22 61 17 167/80 (109) 96 Room Air 12/03/17 02:22 76 20 167/84 (111) 94 Room Air 12/03/17 02:00 62 18 159/84 (109) 95 Room Air 12/03/17 01:22 64 20 147/83 (104) 95 Room Air 12/03/17 00:22 36.7 76 20 129/72 (91) 97 Room Air 12/03/17 00:01 36.6 71 19 147/73 (97) 94 Room Air 12/02/17 23:59 Room Air 12/02/17 23:22 72 18 148/85 (106) 94 Room Air 12/02/17 22:22 65 16 133/74 (93) 94 Room Air 12/02/17 22:00 75 19 153/74 (100) 94 Room Air 12/02/17 21:22 73 20 114/59 (77) 94 Room Air 12/02/17 20:22 75 21 125/69 (87) 93 Room Air 12/02/17 20:00 Room Air 12/02/17 20:00 36.7 80 18 133/73 (93) 93 Room Air 12/02/17 19:22 79 18 127/85 (99) 96 Room Air 12/02/17 19:06 77 16 95 Room Air 12/02/17 18:22 79 19 132/72 (92) 95 Room Air 12/02/17 17:22 84 20 141/82 (101) 96 Room Air 12/02/17 16:52 84 20 141/75 (97) 96 Room Air 12/02/17 16:22 36.7 78 20 154/76 (102) 95 Room Air 12/02/17 16:00 Room Air 12/02/17 15:52 80 20 140/82 (101) 97 Room Air 12/02/17 15:22 81 20 138/77 (97) 97 Room Air 12/02/17 15:22 84 12 95 Room Air 12/02/17 14:52 77 20 156/96 (116) 97 Room Air 12/02/17 14:22 65 20 165/86 (112) 97 Room Air 12/02/17 13:52 73 20 163/84 (110) 97 Room Air 12/02/17 13:22 70 20 150/86 (107) 97 Room Air 12/02/17 12:52 77 20 151/91 (111) 97 Room Air 12/02/17 12:00 Room Air 12/02/17 11:22 36.7 73 20 176/97 (123) 97 Room Air 12/02/17 10:53 77 22 161/95 95 2/21/18 10:32 74 22 161/95 96 Room Air (Karen Calix PA-C) Physical Exam General Appearance: WD/WN, no apparent distress Eyes: sclerae normal ENT: hearing grossly normal, + pertinent finding (nasal packing to L nare) Neck: supple, no JVD, trachea midline Respiratory/Chest: no respiratory distress, no accessory muscle use, + wheezing (diffuse) Cardiovascular: regular rate, rhythm, no gallop, no murmur Abdomen: normal bowel sounds, non tender, soft Extremities: no pedal edema Neurologic/Psychiatric: no motor/sensory deficits, alert, normal mood/affect, oriented x 3 Skin: normal color, warm/dry (Karen Calix PA-C) Laboratory Results Last 24 Hours Test 12/02/17 16:42 12/02/17 18:45 12/02/17 23:10 12/03/17 09:30 Bedside Glucose 113 mg/dl 84 mg/dl Urine Color YELLOW Urine Appearance CLEAR Urine pH 5.5 Urine Specific [place] 1.015 Urine Protein NEG Urine Glucose (UA) NEG Urine Ketones NEG Urine Occult Blood NEG Urine Nitrite NEG Urine Bilirubin NEG Urine Urobilinogen NEG Urine Leukocyte Esterase NEG White Blood Count 7.81 K/uL Red Blood Count 5.41 M/uL Hemoglobin 16.3 g/dL Hematocrit 47.3 % Mean Corpuscular Volume 87.4 fL Mean Corpuscular Hemoglobin 30.1 pg Mean Corpuscular Hemoglobin Concent 34.5 g/dl Platelet Count 138 K/uL Mean Platelet Volume 11.1 fL Neutrophils (%) (Auto) 76.3 % Lymphocytes (%) (Auto) 13.8 % Monocytes (%) (Auto) 7.7 % Eosinophils (%) (Auto) 1.4 % Basophils (%) (Auto) 0.3 % Neutrophils # (Auto) 5.96 K/uL Lymphocytes # (Auto) 1.08 K/uL Monocytes # (Auto) 0.60 K/uL Eosinophils # (Auto) 0.11 K/uL Basophils # (Auto) 0.02 K/uL RDW Standard Deviation 46.5 fL RDW Coefficient of Variation 14.6 % Immature Granulocyte % (Auto) 0.5 % Immature Granulocyte # (Auto) 0.04 K/uL Prothrombin Time 10.5 SECONDS Prothromb Time International Ratio 1.0 Sodium Level 140 mmol/L Potassium Level 4.0 mmol/L Chloride Level 104 mmol/L Carbon Dioxide Level 29 mmol/L Anion Gap 7.0 mmol/L Blood Urea Nitrogen 21 mg/dl Creatinine 1.34 mg/dl Est Creatinine Clear Calc Drug Dose 47.5 ml/min Estimated GFR () 57.2 Estimated GFR (Non- 49.3 BUN/Creatinine Ratio 15.9 Random Glucose 133 mg/dl Calcium Level 9.3 mg/dl Triglycerides Level 179 mg/dl Cholesterol Level 143 mg/dl HDL Cholesterol 45 mg/dl LDL Cholesterol, Calculated 62 mg/dl VLDL Cholesterol, Calculated 36 mg/dl Cholesterol/HDL Ratio 3.2 (Karen Calix PA-C) Assessment and Plan Mr. Singleton is an 82 y/o male with PMHx of CAD with STEMI and PCI x 4, HLD (off Statin), HTN, Pulmonary Emphysema/COPD, and H/O Lung CA S/P Resection (1998) who presents to the ED for L sided numbness/weakness that started this AM. CVA vs TIA with L-Sided Residual Deficits S/P tPA: RESOLVED - Head CT and MRI unremarkable after administration of tPA - no bleeding and no new neurological deficits - MRA of Head shows 2 small aneurysms in left cavernous carotid and ophthalmic portion of the right internal carotid artery. - Continue stroke with tPA protocol and will utilize day two protocol - Now the ultimate goal is stroke prevention - will restart Carvedilol 3.125 mg BID and Losartan 25 mg daily - Resume Plavix 75 mg daily and ASA 81 mg daily - Neurology consulted - appreciate recommendations URI Symptoms with Underlying Pulmonary Emphysema/COPD: - Complete steroid taper of 5 mg x 2 more days - Duonebs UMESH and PRN; Continue Spiriva - He is afebrile and without leukocytosis; appropriate oxygenation on RA - no infiltrate on CXR CAD S/P STEMI and PCI x 4: - Follows with Dr. Sahu - has been stable from cardiac standpoint as outpatient DVT Prophylaxis: SCDs Code Status: FULL RESUSCITATION Disposition: - Appropriate for transfer out of ICU - Nasal packing can be removed Thu vs Thursday Continued [facility] stay due to: other (continued monitoring after tPA) Discharge planning: uncertain (Karen Calix PA-C) Attending Attestation: Pt seen/examined, chart reviewed, care plan d/w MORGAN Calix. I agree w/ the mccord components of her documentation. Pt's left-sided weakness resolved. No epistaxis since nasal packing placed. Tele stable. No new complaints. VSS no fever gen - nad face - no droop nose - packing in place, left mouth - MMM heart - RRR, s1, s2 lungs - minimal end-exp wheeze abd - soft ext - no edema neuro - strength 5/5 x 4 exts A/P: right-sided TIA/stroke with resulting left-sided weakness - s/p TPA - full resolution of presenting symptoms appreciate neuro consult asa/plavix apparently statin intolerant - will d/w patient epistaxis - s/p packing COPD with exacerbation - finish off prednisone home tomorrow? family updated Zain Mckeon MD (Zain Mckeon MD)
--- NOTE | 2017-12-03 10:36 | Neurology Consultation ---
Neurology Consultation Date of Consultation: Dec 03, 2017. Attending Physician: Zain Mckeon MD Primary Care Physician: Daryn Pettit M.D. Reason for Consultation: Cerebrovascular accident History of Present Illness Source: patient, hospital records The patient is an 82-year-old male with a chief complaint of weakness. The weakness began yesterday morning between 7:30 and 8 AM, approximately 45 minutes prior to arrival in the emergency department. The weakness affected the left arm and leg as well as the left side of the face and was associated with mild dysarthria and a vague left-sided headache. His left-sided weakness was observed during his assessment in the emergency department. A CT of the head was negative for hemorrhage or acute process. Electrocardiogram revealed a sinus rhythm, 83 bpm with fusion complexes and changes suggestive of bifascicular block. A tele-stroke consultation with [facility] was obtained. TPA was administered. The patient did have some left-sided epistaxis after administration of TPA. This issue has stabilized with treatment. The patient's left-sided weakness began to improve after menstruation of TPA. His weakness has resolved this morning area did an MRI of the brain was obtained. I reviewed the images as well as the radiologist's interpretation of this test. The study is negative for acute or subacute infarct. There is mild generalized cerebral atrophy. An MRA of the neck was unremarkable. No evidence of hemodynamic significant stenosis. An MRA of the head revealed 2 tiny (2 mm) aneurysms. One of these aneurysms is located within the left cavernous carotid while the other is located within the ophthalmic division of the right internal carotid artery. A transthoracic echocardiogram is generally unremarkable and negative for obvious cardioembolic source. No shunting observed with bubble study. Past medical history notable for coronary artery disease status post multivessel stenting, lung cancer with resection in 1998, and COPD. The patient is a former smoker having quit 2 years prior to his lung cancer diagnosis. The patient also relays a history of migraines that began in young adulthood during his service. His migraines currently occur once every few months and are typically associated with nausea and some light sensitivity. He does not express a visual aura. He has never experienced an episode of weakness or other strokelike symptoms associated with his migraines. He continues to report a very mild, left frontal headache this morning. Past Medical/Surgical History Medical Problems: (1) Acute electrocardiogram changes Status: Acute (2) Anterior epistaxis Status: Acute (3) CVA (cerebral vascular accident) Status: Acute (4) Dizzy Status: Acute (5) Headache Status: Acute (6) Left sided chest pain Status: Acute (7) Left-sided weakness Status: Acute (8) Precordial chest pain Status: Acute (9) Substernal chest pain Status: Acute (10) Substernal chest pain Status: Acute Family History Family history notable for diabetes mellitus, hypertension, and cancer Social History Smoking Status: Former smoker Smokeless Tobacco Use: No Alcohol Use: none Drug Use: none Marital Status: Housing Status: lives with family, unknown Occupation Status: retired Allergies Coded Allergies: Atorvastatin (Unverified Allergy, Unknown, ., 12/02/17) Cephalosporins (Verified Allergy, Unknown, 12/02/17) Fluticasone (Unverified Allergy, Unknown, ., 12/02/17) Fluvastatin (Unverified Allergy, Unknown, ., 12/02/17) Iodinated Diagnostic Agents (Verified Allergy, Unknown, `, 12/02/17) Lisinopril (Unverified Allergy, Unknown, ., 12/02/17) Milk Protein Extract (Unverified Allergy, Unknown, ., 12/02/17) Oxycodone (Verified Allergy, Unknown, HIVES, 12/02/17) ABLE TO TAKE TYLENOL Penicillins (Verified Allergy, Unknown, 12/02/17) Rosuvastatin (Unverified Allergy, Unknown, ., 12/02/17) Salmeterol (Unverified Allergy, Unknown, ., 12/02/17) Current Inpatient Medications Current Inpatient Medications Medications (Trade) Dose Ordered Sig/Umesh Route Start Time Stop Time Status Last Admin Dose Admin Miscellaneous Information (Pharmacist Discharge Med Rec Consult) 1 ea UD PRN N/A 12/02/17 10:00 01/01/18 09:59 Acetaminophen (Tylenol Tab) 650 mg Q4H PRN PO 12/02/17 10:00 01/01/18 09:59 12/03/17 08:18 650 MG Miscellaneous Information (Icu Protocol For Hyperglycemia) 1 ea PRN PRN N/A 12/02/17 10:00 12/04/17 09:59 Ketoconazole (Nizoral 2% Crm) 1 appln BID EXT 12/02/17 21:00 12/12/17 20:59 12/03/17 08:19 1 APPLN Nitroglycerin (Nitrostat Tab) 0.4 mg PRN PRN UT 12/02/17 10:00 01/01/18 09:59 Tiotropium [place] (Spiriva Handihaler Inhaler) 1 puff QAM INH 12/03/17 09:00 01/02/18 08:59 12/03/17 08:19 1 PUFF Prednisone (PredniSONE TAB) 5 mg DAILY PO 12/03/17 09:00 12/06/17 08:59 12/03/17 08:20 5 MG Albuterol/ Ipratropium (Duoneb) 3 ml Q4RWA INH 12/02/17 12:00 01/01/18 11:59 12/03/17 07:08 3 ML Albuterol/ Ipratropium (Duoneb) 3 ml Q2H PRN INH 12/02/17 10:30 01/01/18 10:29 Acetaminophen/ Butalbital/ Caffeine (Fioricet Tab) 1 tab Q4H PRN PO 12/03/17 09:15 01/02/18 09:14 Review of Systems Constitutional: No fever or chills Eyes: No vision loss or diplopia ENT: No hearing loss or vertigo Cardiovascular: No chest pain or palpitations Respiratory: Chronic shortness of breath Neurological: As per history of present illness Hematologic: Epistaxis as per history of present illness A full 10 point review of systems was obtained in this patient with pertinent positives and negatives described in the history of present illness and otherwise listed above. All remaining systems were reviewed and are negative. Physical Exam Vital Signs (Past 24 Hrs): Date Time Temp Pulse Resp B/P (MAP) Pulse Ox O2 Delivery O2 Flow Rate FiO2 12/03/17 10:00 74 22 132/117 (122) 94 Room Air 12/03/17 09:22 84 17 158/122 (134) 94 Room Air 12/03/17 08:22 89 22 187/92 (123) 98 Room Air 12/03/17 08:00 Room Air 12/03/17 07:22 80 16 177/101 (126) 93 Room Air 12/03/17 07:09 87 16 94 Room Air 12/03/17 07:00 36.8 71 16 176/80 (112) 93 Room Air 12/03/17 06:22 70 19 167/91 (116) 95 Room Air 12/03/17 06:00 22 168/94 (118) 95 Room Air 12/03/17 05:22 80 18 160/92 (114) 95 Room Air 12/03/17 04:22 63 16 164/80 (108) 94 Room Air 12/03/17 04:00 Room Air 12/03/17 04:00 36.7 66 14 170/89 (116) 95 Room Air 12/03/17 03:22 61 17 167/80 (109) 96 Room Air 12/03/17 02:22 76 20 167/84 (111) 94 Room Air 12/03/17 02:00 62 18 159/84 (109) 95 Room Air 12/03/17 01:22 64 20 147/83 (104) 95 Room Air 12/03/17 00:22 36.7 76 20 129/72 (91) 97 Room Air 12/03/17 00:01 36.6 71 19 147/73 (97) 94 Room Air 12/02/17 23:59 Room Air 12/02/17 23:22 72 18 148/85 (106) 94 Room Air 12/02/17 22:22 65 16 133/74 (93) 94 Room Air 12/02/17 22:00 75 19 153/74 (100) 94 Room Air 12/02/17 21:22 73 20 114/59 (77) 94 Room Air 12/02/17 20:22 75 21 125/69 (87) 93 Room Air 12/02/17 20:00 Room Air 12/02/17 20:00 36.7 80 18 133/73 (93) 93 Room Air 12/02/17 19:22 79 18 127/85 (99) 96 Room Air 12/02/17 19:06 77 16 95 Room Air 12/02/17 18:22 79 19 132/72 (92) 95 Room Air 12/02/17 17:22 84 20 141/82 (101) 96 Room Air 12/02/17 16:52 84 20 141/75 (97) 96 Room Air 12/02/17 16:22 36.7 78 20 154/76 (102) 95 Room Air 12/02/17 16:00 Room Air 12/02/17 15:52 80 20 140/82 (101) 97 Room Air 12/02/17 15:22 81 20 138/77 (97) 97 Room Air 12/02/17 15:22 84 12 95 Room Air 12/02/17 14:52 77 20 156/96 (116) 97 Room Air 12/02/17 14:22 65 20 165/86 (112) 97 Room Air 12/02/17 13:52 73 20 163/84 (110) 97 Room Air 12/02/17 13:22 70 20 150/86 (107) 97 Room Air 12/02/17 12:52 77 20 151/91 (111) 97 Room Air 12/02/17 12:00 Room Air 12/02/17 11:22 36.7 73 20 176/97 (123) 97 Room Air 12/02/17 10:53 77 22 161/95 95 12/02/17 10:32 74 22 161/95 96 Room Air 12/02/17 10:16 71 22 171/90 97 Room Air 12/02/17 10:09 76 22 159/87 97 Room Air The patient is a well-developed, well-nourished elderly male. He is lying comfortably in bed in no acute distress. He is alert and fully oriented. Recent and remote memory intact. Attention and concentration normal. Patient exhibits a normal spontaneous speech pattern as well as an age-appropriate fund of knowledge. Vocabulary normal. Visual chang full to confrontation. Visual acuity normal. Pupils equal round reactive to light and accommodation. Eye movements normal. Facial sensation intact. There is no facial droop or weakness. Hearing intact to finger rub bilaterally. Palate elevates to midline. Shoulder shrug intact bilaterally. Tongue protrudes to midline. Sensation intact to light touch, temperature, vibration, and proprioception for all 4 limbs. Deep tendon reflexes are intact and symmetrical for the arms and legs bilaterally. Plantar responses downgoing bilaterally. There is no dysdiadochokinesia or dysmetria with finger to nose or heel to avila bilaterally. Ophthalmoscopic examination reveals normal-appearing optic disks and posterior segments. No papilledema or hemorrhages. Carotid pulses normal bilaterally, no bruits to auscultation. Gait and station not tested due to safety concerns. Muscle strength and tone normal for all 4 limbs. No atrophy. No abnormal movements observed. Laboratory Results Past 24 Hours: 12/03/17 09:30 Red Blood Count 5.41, Mean Corpuscular Volume 87.4, Mean Corpuscular Hemoglobin 30.1, Mean Corpuscular Hemoglobin Concent 34.5, Mean Platelet Volume 11.1, Neutrophils (%) (Auto) 76.3, Lymphocytes (%) (Auto) 13.8, Monocytes (%) (Auto) 7.7, Eosinophils (%) (Auto) 1.4, Basophils (%) (Auto) 0.3, Neutrophils # (Auto) 5.96, Lymphocytes # (Auto) 1.08, Monocytes # (Auto) 0.60, Eosinophils # (Auto) 0.11, Basophils # (Auto) 0.02 Test 12/02/17 18:45 12/02/17 23:10 12/03/17 09:30 Urine Color YELLOW Urine Appearance CLEAR (CLEAR) Urine pH 5.5 (4.5-7.5) Urine Specific [place] 1.015 (1.000-1.030) Urine Protein NEG (NEG) Urine Glucose (UA) NEG (NEG) Urine Ketones NEG (NEG) Urine Occult Blood NEG (NEG) Urine Nitrite NEG (NEG) Urine Bilirubin NEG (NEG) Urine Urobilinogen NEG (NEG) Urine Leukocyte Esterase NEG (NEG) Bedside Glucose 84 mg/dl (70-99) White Blood Count 7.81 K/uL (4.8-10.8) Red Blood Count 5.41 M/uL (4.7-6.1) Hemoglobin 16.3 g/dL (14.0-18.0) Hematocrit 47.3 % (42-52) Mean Corpuscular Volume 87.4 fL (80-100) Mean Corpuscular Hemoglobin 30.1 pg (25-34) Mean Corpuscular Hemoglobin Concent 34.5 g/dl (32-36) Platelet Count 138 K/uL (130-400) Mean Platelet Volume 11.1 fL (7.4-10.4) Neutrophils (%) (Auto) 76.3 % Lymphocytes (%) (Auto) 13.8 % Monocytes (%) (Auto) 7.7 % Eosinophils (%) (Auto) 1.4 % Basophils (%) (Auto) 0.3 % Neutrophils # (Auto) 5.96 K/uL (1.4-6.5) Lymphocytes # (Auto) 1.08 K/uL (1.2-3.4) Monocytes # (Auto) 0.60 K/uL (0.11-0.59) Eosinophils # (Auto) 0.11 K/uL (0-0.5) Basophils # (Auto) 0.02 K/uL (0-0.2) RDW Standard Deviation 46.5 fL (36.4-46.3) RDW Coefficient of Variation 14.6 % (11.5-14.5) Immature Granulocyte % (Auto) 0.5 % Immature Granulocyte # (Auto) 0.04 K/uL (0.00-0.02) Prothrombin Time 10.5 SECONDS (9.0-12.0) Prothromb Time International Ratio 1.0 (0.9-1.1) Impression Probable TIA localizing to the right cerebral hemisphere and presenting with a left hemiparesis affecting the face arm and leg which improved following administration of TPA and has resolved this morning. I suspect a small vessel thrombotic ischemic etiology in this patient. Cardioembolism may not be completely excluded, however. There is no evidence for atrial fibrillation. Hemiplegic migraine is possible in light of his history of episodic common migraine but much less likely. He has never experienced strokelike symptoms associated with his migraines in the past and his current low-grade headache is different from his typical migraines. This patient also has two incidental 2 mm cerebral aneurysms. Plan Patient's antiplatelet medication should be resumed 24 hours after administration of TPA. Order a follow-up noncontrast CT of the head today to further exclude interval hemorrhage. Consider obtaining a follow-up MRA of the head in 6 months to reevaluate the 2 tiny aneurysms. Continue to monitor patient's blood pressure. A systolic blood pressure of 140- 160 is reasonable for today. Attempt to gradually reduce as medically appropriate. Consultation with rehabilitation services. Please contact me if I may be of further assistance.
[2017-12-03] MEDS: HEPARIN SOD 5000 UNIT/0.5 ML CARP SQ SCH ×2 (12:59→21:56)
--- NOTE | 2017-12-03 14:11 | DIAGNOSTIC IMAGING REPORT ---
HEAD CT NONCONTRAST CT DOSE: 638.56 mGycm HISTORY: cerebrovascular accident status post TPA TECHNIQUE: Multiaxial CT images of the head were performed without the use of intravenous contrast. Automated exposure control was utilized for this study. A dose lowering technique was utilized adhering to the principles of ALARA. Comparison: Head CT 12/02/2017. Brain MRI 12/02/2017. Findings: Trace fluid within the paranasal sinuses with a left nasal tube identified. The mastoid air cells are clear. The calvarium and skull base are intact. Stable prominence of the right extra-axial space at the high convexity. The ventricles are normal in size. There is no mass, hematoma, midline shift, acute infarct. Question increased density within the central annabelle is likely artifact. Impression: No significant change compared to the prior study. No acute intracranial abnormality. Electronically signed by: Jelani Hitchcock M.D. 12/03/2017 2:10 PM Dictated Date/Time: 12/03/2017 2:02 PM
[2017-12-03] MEDS ORDERED: SODIUM CHLORIDE 0.65% NA SOLN 45 ML (OCEAN) ONE (16:48)
[2017-12-03] MEDS: BUTALBITAL/ACETAMIN/CAFFEINE TAB PO PRN ×2 (17:43→22:16)
--- NOTE | 2017-12-03 20:15 | Critical Care Progress Note ---
Critical Care Progress Note Date of Service Dec 03, 2017. Attending Dr. Colvin Subjective The patient has improved significantly, without any neurologic residual, the patient did not have any events overnight, no recurrence of epistaxis. Objective His physical exam revealed stable vital signs, blood pressure has been maintained, remains in the upper side, heart examination S1-S2 regular rate and rhythm, distant breath sounds bilaterally, abdomen is benign, no edema. Left nostril packing in place. Neurologic exam did not reveal any deficit, cranial nerves II-12 are intact, no motor or sensory loss reported on exam. Ambulatory with physical therapy and no gait imbalance. 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 #2 left-sided headache could be related to the nostril packing, migraine as well. #3 history of COPD on bronchodilators. #4 history of lung CA status post partial right midlobe lobectomy. #5 history of coronary artery disease with [address] On aspirin and Plavix. #6 hypertension. Plan: #1 we'll resume day 2 post stroke care. #2 resume aspirin and Plavix. #3 heparin subcutaneous. #4 continue bronchodilators. #5 remove the nostril packing on December 05. #6 oral intake. #7 physical therapy. #8 blood pressure control with his home medications. #9 Fioricet for headache. #10 transfer the patient to regular floor. #11 discussed with the patient and the family. All their questions being answered. #12 discussed with the staff on rounds and details. Critical care time spent with the patient was 35 minutes. Data Medications: Current Inpatient Medications Medications (Trade) Dose Ordered Sig/Umesh Route Start Time Stop Time Status Last Admin Dose Admin Miscellaneous Information (Pharmacist Discharge Med Rec Consult) 1 ea UD PRN N/A 12/02/17 10:00 01/01/18 09:59 Acetaminophen (Tylenol Tab) 650 mg Q4H PRN PO 12/02/17 10:00 01/01/18 09:59 12/03/17 08:18 650 MG Miscellaneous Information ([facility] Protocol For Hyperglycemia) 1 ea PRN PRN N/A 12/02/17 10:00 12/04/17 09:59 Ketoconazole (Nizoral 2% Crm) 1 appln BID EXT 12/02/17 21:00 12/12/17 20:59 12/03/17 08:19 1 APPLN Nitroglycerin (Nitrostat Tab) 0.4 mg PRN PRN UT 12/02/17 10:00 01/01/18 09:59 Tiotropium [place] (Spiriva Handihaler Inhaler) 1 puff QAM INH 12/03/17 09:00 01/02/18 08:59 12/03/17 08:19 1 PUFF Prednisone (PredniSONE TAB) 5 mg DAILY PO 12/03/17 09:00 12/06/17 08:59 12/03/17 08:20 5 MG Albuterol/ Ipratropium (Duoneb) 3 ml Q4RWA INH 12/02/17 12:00 01/01/18 11:59 12/03/17 18:45 3 ML Albuterol/ Ipratropium (Duoneb) 3 ml Q2H PRN INH 12/02/17 10:30 01/01/18 10:29 Acetaminophen/ Butalbital/ Caffeine (Fioricet Tab) 1 tab Q4H PRN PO 12/03/17 09:15 01/02/18 09:14 12/03/17 17:43 1 TAB Carvedilol (Coreg Tab) 3.125 mg BID PO 12/03/17 21:00 01/02/18 20:59 Losartan Potassium (coZAAR TAB) 25 mg DAILY PO 12/04/17 09:00 01/03/18 08:59 Aspirin (Ecotrin Tab) 81 mg QAM PO 12/04/17 09:00 01/03/18 08:59 Clopidogrel Bisulfate (plAVix TAB) 75 mg QAM PO 12/04/17 09:00 01/03/18 08:59 Heparin Sodium (Porcine) (Heparin Sq 5000 Unit/0.5ml) 5,000 unit Q8 SQ 12/03/17 14:00 01/02/18 13:59 12/03/17 12:59 5,000 UNIT I & O: 24-Hour Column 12/04/17 08:00 Intake Total 700 ml Output Total 1275 ml Balance -575 ml Vital Signs: Date Time Temp Pulse Resp B/P (MAP) Pulse Ox O2 Delivery O2 Flow Rate FiO2 12/03/17 18:47 93 16 97 Room Air 12/03/17 16:00 Room Air 12/03/17 15:56 36.9 84 24 143/87 (105) 96 Room Air 12/03/17 15:30 80 16 96 Room Air 12/03/17 12:00 36.6 94 23 146/81 (102) 95 Room Air 12/03/17 12:00 Room Air 12/03/17 11:29 83 16 91 Room Air 12/03/17 10:30 90 21 121/70 (87) 95 12/03/17 10:00 74 22 132/117 (122) 94 Room Air 12/03/17 09:22 84 17 158/122 (134) 94 Room Air 12/03/17 08:22 89 22 187/92 (123) 98 Room Air 12/03/17 08:00 Room Air 12/03/17 07:22 80 16 177/101 (126) 93 Room Air 12/03/17 07:09 87 16 94 Room Air 12/03/17 07:00 36.8 71 16 176/80 (112) 93 Room Air 12/03/17 06:22 70 19 167/91 (116) 95 Room Air 12/03/17 06:00 22 168/94 (118) 95 Room Air 12/03/17 05:22 80 18 160/92 (114) 95 Room Air 12/03/17 04:22 63 16 164/80 (108) 94 Room Air 12/03/17 04:00 Room Air 12/03/17 04:00 36.7 66 14 170/89 (116) 95 Room Air 12/03/17 03:22 61 17 167/80 (109) 96 Room Air 12/03/17 02:22 76 20 167/84 (111) 94 Room Air 12/03/17 02:00 62 18 159/84 (109) 95 Room Air 12/03/17 01:22 64 20 147/83 (104) 95 Room Air 12/03/17 00:22 36.7 76 20 129/72 (91) 97 Room Air 12/03/17 00:01 36.6 71 19 147/73 (97) 94 Room Air 12/02/17 23:59 Room Air 12/02/17 23:22 72 18 148/85 (106) 94 Room Air 12/02/17 22:22 65 16 133/74 (93) 94 Room Air 12/02/17 22:00 75 19 153/74 (100) 94 Room Air 12/02/17 21:22 73 20 114/59 (77) 94 Room Air 12/02/17 20:22 75 21 125/69 (87) 93 Room Air Laboratory Results: Last 24 Hours Test 12/02/17 23:10 12/03/17 09:30 Bedside Glucose 84 mg/dl White Blood Count 7.81 K/uL Red Blood Count 5.41 M/uL Hemoglobin 16.3 g/dL Hematocrit 47.3 % Mean Corpuscular Volume 87.4 fL Mean Corpuscular Hemoglobin 30.1 pg Mean Corpuscular Hemoglobin Concent 34.5 g/dl Platelet Count 138 K/uL Mean Platelet Volume 11.1 fL Neutrophils (%) (Auto) 76.3 % Lymphocytes (%) (Auto) 13.8 % Monocytes (%) (Auto) 7.7 % Eosinophils (%) (Auto) 1.4 % Basophils (%) (Auto) 0.3 % Neutrophils # (Auto) 5.96 K/uL Lymphocytes # (Auto) 1.08 K/uL Monocytes # (Auto) 0.60 K/uL Eosinophils # (Auto) 0.11 K/uL Basophils # (Auto) 0.02 K/uL RDW Standard Deviation 46.5 fL RDW Coefficient of Variation 14.6 % Immature Granulocyte % (Auto) 0.5 % Immature Granulocyte # (Auto) 0.04 K/uL Prothrombin Time 10.5 SECONDS Prothromb Time International Ratio 1.0 Sodium Level 140 mmol/L Potassium Level 4.0 mmol/L Chloride Level 104 mmol/L Carbon Dioxide Level 29 mmol/L Anion Gap 7.0 mmol/L Blood Urea Nitrogen 21 mg/dl Creatinine 1.34 mg/dl Est Creatinine Clear Calc Drug Dose 47.5 ml/min Estimated GFR () 57.2 Estimated GFR (Non- 49.3 BUN/Creatinine Ratio 15.9 Random Glucose 133 mg/dl Calcium Level 9.3 mg/dl Triglycerides Level 179 mg/dl Cholesterol Level 143 mg/dl HDL Cholesterol 45 mg/dl LDL Cholesterol, Calculated 62 mg/dl VLDL Cholesterol, Calculated 36 mg/dl Cholesterol/HDL Ratio 3.2
[2017-12-03] MEDS: CARVEDILOL 3.125 MG TAB PO SCH (21:54)
[2017-12-04] VITALS (9 sets, daily range): BP systolic 105–151; BP diastolic 53–87; PULSE 73–106; TEMP 36.4–36.8; O2SAT 94–98
[2017-12-04] MEDS: BUTALBITAL/ACETAMIN/CAFFEINE TAB PO PRN ×2 (05:06→11:03)
[2017-12-04] MEDS: HEPARIN SOD 5000 UNIT/0.5 ML CARP SQ SCH ×2 (05:08→14:00)
[2017-12-04 05:52] LABS: BASO % 0.4 %; BASO ABS # 0.03 K/uL (0-0.2); EOS % 1.8 %; EOS ABS # 0.13 K/uL (0-0.5); HEMATOCRIT 45.8 % (42-52); IG# 0.03 K/uL (0.00-0.02); LYMPH % 16.3 %; LYMPH ABS # 1.19 K/uL (1.2-3.4); MEAN CELL VOLUME 87.2 fL (80-100); MEAN CORPUSCULAR HEMOGLOBIN 30.5 pg (25-34); MEAN CORPUSCULAR HGB CONC 34.9 g/dl (32-36); MEAN PLATELET VOLUME 11.4 fL (7.4-10.4); MONO ABS # 0.66 K/uL (0.11-0.59); NEUT % 72.1 %; NEUT ABS # 5.28 K/uL (1.4-6.5); PLATELET COUNT 143 K/uL (130-400); RED CELL DISTRIBUTION WIDTH CV 14.4 % (11.5-14.5); RED CELL DISTRIBUTION WIDTH SD 45.9 fL (36.4-46.3); WHITE BLOOD COUNT 7.32 K/uL (4.8-10.8)
[2017-12-04 06:21] LABS: CREATININE 1.2 mg/dl (0.60-1.40); POTASSIUM 3.9 mmol/L (3.5-5.1)
[2017-12-04] MEDS: ALBUT/IPRATROP 3MG/0.5MG NEB 3 ML VIAL INH SCH ×3 (07:12→15:27)
[2017-12-04] MEDS: KETOCONAZOLE 2% CR 15 GM TUBE EXT SCH (08:22)
[2017-12-04] MEDS: TIOTROPIUM BROMIDE 5 PUFF/90 MCG INH INH SCH (08:23)
[2017-12-04] MEDS: CARVEDILOL 3.125 MG TAB PO SCH (08:24)
[2017-12-04] MEDS ORDERED: CLOPIDOGREL BISULFATE 75 MG TAB PO SCH ×2 (09:00)
[2017-12-04] MEDS ORDERED: ASPIRIN 81 MG ECTAB PO SCH ×2 (09:00)
[2017-12-04] MEDS ORDERED: LOSARTAN POTASSIUM 25 MG TAB PO SCH (09:00)
[2017-12-04] MEDS ORDERED: PRD5 PO (16:19)
--- NOTE | 2017-12-04 17:25 | Pharmacy Progress Note ---
Pharmacist Stroke Counseling Date of Service Dec 04, 2017. Scope Pharmacy has been consulted to provide medication discharge counseling for this patient admitted with ischemic stroke/hemorrhagic stroke/ transient ischemic attack as per the Pharmacist Discharge Counseling for Stroke Patients Protocol. Medications on Discharge New Medications: Prednisone (Prednisone) 5 Mg Tab 5 MG PO DAILY, #2 TAB 0 Refills Continued Medications: Albuterol Sulf (Proventil 0.083% 2.5MG/3ML) 2.5 Mg/3 Ml Nebu 1 DOSE NEB Q6H PRN for Wheezing INHALE THE CONTENTS OF ONE (3ML) VIAL IN THE NEBULIZER EVERY 6 HOURS NEEDED FOR WHEEZING Aspirin (Aspirin Ec) 81 Mg Tab 81 MG PO DAILY Carvedilol (Carvedilol) 3.125 Mg Tab 1 TAB PO BID Cholecalciferol (Vitamin D3) 2,000 Unit Cap 1 CAP PO DAILY, CAP Clopidogrel (Plavix) 75 Mg Tab 75 MG PO DAILY, TAB Ketoconazole (Ketoconazole) 45 Appln/15 Gm Cr 1 APPLN TOP BID apply topically to RIGHT HAND FOR SCALING twice a day for 2 weeks may repeat if needed Losartan Potassium (Losartan Potassium) 25 Mg Tab 1 TAB PO DAILY Nitroglycerin (Nitrostat) 0.4 Mg Tab 0.4 MG UT PRN PRN for Chest Pain Tiotropium [place] (Spiriva Respimat) 1.25 Mcg/Act Aer 1 CAP INH DAILY Action The above medications, specifically ones for stroke treatment/prophylaxis, have been reviewed in detail with the patient and/or patient manufacturers service representative(s) prior to discharge. This includes indication, common adverse reactions, drug interactions, and medication administration. Medication counseling has been employed using the teach-back method to ensure understanding. Outcome The patient and/or patient manufacturers service representative(s) have demonstrated understanding of the medications. Please note, they are aware that the pharmacist will call them within 72 hours post-discharge to confirm that the appropriate medications are being taken and answer any further medication related questions the patient might have at that time. Contact information Individual to be contacted: Patient/ Relationship to patient (if applicable): Patient/ Phone number: [phone] Best time to call: Anytime Additional comments: * Met with patient, , and daughter at bedside prior to discharge home today. * Patient with noted intolerance to multiple statins (myalgia)... confirmed during counseling. During discussion, daughter states the physician (unsure who ) told them that patient would be prescribed Pravastatin 10mg po HS and that they were recommended to take CoQ10 200mg daily along with statin therapy to prevent myopathy. However, Pravastatin was NOT ORDERED on discharge medication list. No discharge summary available for review at time to discharge counseling. Informed RN of conversation; she is to f/u Dr. Mckeon to clarify discharge orders. Explained situation to patient/family. Unsure if medication will be added to discharge or if patient needs to f/u as outpatient to obtain Rx. Recommended purchasing CoQ10 brand that has seal of "[facility] verified" since nutraceuticals are not regulated. Explained mechanism of possible benefits to prevent myopathy. Patient agreeable to try Pravastatin (if/when ordered)... it is a weak potency statin and at 10mg, may perhaps be tolerated. Of note, LDL = 62; explained possible pleiotropic benefits of statins. * The only change noted at ~1630 was a "new" order for prednisone 5mg daily to be continued x 2 days (#2 tablets Rx'd). Per daughter, patient was on a tapering course of prednisone prior to admission. Unclear how many days total. She thinks patient received remaining doses of original prednisone Rx during hospitalization. Unsure if Dr. Mckeon is extending prednisone by another 2 days. Daughter reports they have prednisone 5mg tablets at home, they do not need Rx. Again, informed RN regarding this; she is to f/u Dr. Mckeon to clarify whether prednisone being extended. * Patient already using weekly pillbox; has good family support. He was already on Plavix + aspirin prior to admission. This is patient's first TIA, but daughter has had a TIA in the past and also with some carotid stenosis; she is familiar with medications to prevent stroke. Patient seems to have good understanding and adherence with medications. No concerns or issues with medications mentioned at this time. He has good Rx coverage, no cost concerns. * He states he is also taking Ranitidine HS. Dose unknown. Needs to be clarified and added to med list at time of phone f/u. Thank you for allowing pharmacy to be involved in the care of this patient. Please call [phone] or [phone] with any additional questions
[2017-12-04] MEDS ORDERED: PRAV10TA39 PO (17:45)
[2017-12-04] MEDS ORDERED: COEN1CAP PO (17:45)
--- NOTE | 2017-12-04 17:57 | Discharge Instructions ---
Discharge Instructions Date of Service Dec 04, 2017. Admission Reason for Admission: suspected stroke Discharge Discharge Diagnosis / Problem: TIA (transient ischemic attack) resolved following TPA (clot-busting drug) Discharge Goals Goal(s): Learn about illness, Diagnostic testing, Therapeutic intervention Activity Recommendations Activity Limitations: resume your previous activity (take "it easy" for the next 3-5 days (would avoid heavy exertional activities, heavy lifting over 25 pounds, etc), then can resume normal activities) . Instructions / Follow-Up Instructions / Follow-Up From Dr. Mckeon: 1. Risk Factors for TIA (transient ischemic attack) or Stroke: You can reduce your chances of stroke by working with your medical provider to adopt a healthy lifestyle. Some specific ways to lower your chance of stroke are: * If you are a smoker, now is the time to stop smoking cigarettes * If you are diabetic, improve the control of your blood sugars * Avoid excessive amounts of alcohol * Control high blood pressure * Lose weight if you are overweight * Be sure to lead an active lifestyle * Eat a healthy diet low in salt, cholesterol and fat You should know about other risk factors for stroke that you are unable to control. These include: * Age 55 years or older * Male gender * Certain racial groups: , or / * Family History of Stroke, Mini stroke or Heart Attack * Sickle Cell Disease 2. Continue your aspirin and plavix for prevention of another TIA (or stroke). 3. If possible try starting pravastatin, a statin agent. Take 10mg once daily starting tomorrow. If you develop muscle cramps or extreme fatigue on the pravastatin simply stop it and let your doctors know you have stopped it. You can try taking [id number] coenzyme q10 once daily to help prevent the muscle cramps from the pravastatin. 4. You will be mailed an "event monitor" to your home. You will be asked to wear this for 30 days. Your results will go to Dr. Sahu from cardiology. This monitor is to rule out atrial fibrillation as a cause of your TIA event. 5. Nosebleed - please do the following - * run a humidifier in your room where you sleep * use nasal saline spray FREQUENTLY to keep your nose moist * use vaseline up each nostril several times a day to help keep the nose moist * avoid forceful blowing of the nose * see Dr. Allan next week * if you develop a recurrent nose bleed place gentle pressure on the nose * if the nosebleed does not stop report back to the ER at [facility] 6. Follow-up appointments have been scheduled with Dr. Allan, [facility], and your primary care doctor's office. See separate section with this information. Of note - [facility] will coordinate repeat scans in the future for the tiny aneurysms seen incidentally on your MRA tests. These are tiny and did not cause your event. 7. Return to [facility] if - * you develop numbness, weakness, etc on either side of the body * you have difficulty speaking or swallowing * you develop severe vertigo (spinning) / dizziness * any difficulty with your vision * any difficulty with balance or ability to walk * severe nosebleed occurs * chest pain occurs * any other concerns Current Hospital Diet Patient's current hospital diet: AHA Diet (Heart Healthy) Discharge Diet Recommended Diet: Low Sodium Diet (2gm Na) Procedures Procedures Performed: MRI head - normal. MRA head and neck - no blocked arteries; incidental finding of 2 tiny aneurysms - follow-up scans recommended later this year. echocardiogram - normal heart function, no blood clots seen, etc. Multiple CAT scans of the head - normal, no bleeding, no obvious stroke. Pending Studies Studies pending at discharge: no Laboratory Results Hemoglobin A1c Test 12/02/17 08:33 Range/Units Estimated Average Glucose 120 mg/dl Hemoglobin A1c 5.8 H 4.5-5.6 % Lipid Panel Test 12/03/17 09:30 Range/Units Triglycerides Level 179 H 0-150 mg/dl Cholesterol Level 143 0-200 mg/dl HDL Cholesterol 45 mg/dl Cholesterol/HDL Ratio 3.2 LDL Cholesterol, Calculated 62 mg/dl Medical Emergencies . Who to Call and When: Medical Emergencies: Call 911 immediately if you experience any of the following warning signs and symptoms of Stroke: * Sudden numbness or weakness of the face, arm or leg, especially on one side of the body * Sudden confusion, trouble speaking or understanding * Sudden trouble seeing in one or both eyes * Sudden trouble walking, dizziness, loss of balance or coordination * Sudden severe headache with no cause Do not delay calling 911 if you experience any warning signs or symptoms of a stroke. Delay in seeking medical attention may affect what treatments can be given to you. . Non-Emergent Contact Non-Emergency issues call your: Primary Care Provider, Neurologist Call Non-Emergent contact if: temperature is above 100.5, you have any medication questions . . "Provider Documentation" section prepared by Zain Mckeon. . Stroke Core Measures Reason no t-PA for Stroke: Treatment provided - N/A Reason no antithrom by day 2: Treatment provided - N/A Reason no antithrom at D/C: Treatment provided - N/A Reason no statin at D/C: Treatment provided - N/A Reason no anticoag w/a fib: Treatment not indicated VTE Core Measure Inpt VTE Proph given/why not?: Unfractionated heparin SQ, SCD's
--- NOTE | 2017-12-07 14:09 | Medical Student: [facility] ---
Consultation Date of Consultation: Dec 06, 2017. Requesting Physician: Dr. Linda Jama Attending Physician: Dr. Thayer Reason for Consultation: Neurology consultation for Stroke-like symptoms History of Present Illness Agnieszka Singleton is an 82 year old Male with a history of Lung Cancer, HLD, HTN, CAD , COPD, presenting to the ED with symptoms of weakness, dysarthria, and a dull left-sided headache that he described "more numb than pain." He first notes the presence of weakness around 7am the morning of 12/02/2017, while attempting to eat breakfast. He could not lift his left arm or left leg. Patient's reported facial drooping at this point in time, as well as slurred speech. Mr. Singleton did not fall or lose consciousness. He was brought to [facility] ER. He reports a history of migraine headaches that he has experienced every few months since the time he was in the in his 20s. He denies any weakness like this ever happening before. He denies fever, chills, lightheadedness or dizziness. Endorses dull left sided headache. Denies chest pain, palpitations, shortness of breath, abdominal pain, acute changes in vision or hearing. Endorses weakness on left upper and lower extremities as well as slightly decreased sensation to touch on the left upper and lower extremities. Head CT revealed no acute intracranial abnormalities. Electrocardiogram revealed a sinus rhythm, 83 bpm with fusion complexes and changes suggestive of bifascicular block. His BP was 203/112 upon arriving at the ER. CBC, Chemistries, U/A, Coagulation Studies unremarkable. Although his weakness was slowly improving between the time he presented to the ED compared to the time during physical exam with the Telestroke consult, and no facial droop was appreciated, weakness of his left extremities persisted, and TPA was administered within the 3 hour window. Mr. Singleton experienced left- sided epistaxis following administration of TPA. Past Medical/Surgical History Medical History: He has known coronary artery disease, undergoing cardiac catheterization 3 times since June 2015, the most recent occurring in June 2016. He has a total of 5 stents. According to outpatient notes, his CAD was asymptomatic on 11/19/2017. He is not on a Statin due to intolerance. Takes dual antiplatelet Therapy of Aspirin 81mg and Plavix 75mg daily. His last Carotid Artery Ultrasound in February 2017 revealed <50% stenosis of Internal Carotid Arteries bilaterally. He has a history of non-small cell lung cancer resected 1998. Follows at [place] with Dr. Valles. CT scan shows emphysema, coronary artery calcification , and aortic calcification. He has a history of prior cigarette smoking, but has not smoked since lung surgery. His HTN is treated with lisinopril and carvedilol. 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 Social History Smoking Status: Former Smoker History of Alcohol Use: No Drug Use: none Marital Status: Housing Status: lives with family Occupation Status: retired Review of Systems Constitutional: + weakness, No fever, No chills Eyes: No worsening of vision, No diplopia ENT: No hearing loss, No trouble swallowing Respiratory: + cough, No shortness of breath Cardiac: No chest pain, No palpitations Abdomen: No pain, No nausea, No vomiting, No diarrhea, No constipation Neurologic: + weakness, + numbness/tingling Psychiatric: No depression symptoms, No anxiety Allergies Coded Allergies: Atorvastatin (Unverified Allergy, Unknown, ., 12/02/17) Cephalosporins (Verified Allergy, Unknown, 12/02/17) Fluticasone (Unverified Allergy, Unknown, ., 12/02/17) Fluvastatin (Unverified Allergy, Unknown, ., 12/02/17) Iodinated Diagnostic Agents (Verified Allergy, Unknown, `, 12/02/17) Lisinopril (Unverified Allergy, Unknown, ., 12/02/17) Oxycodone (Verified Allergy, Unknown, HIVES, 12/02/17) ABLE TO TAKE TYLENOL Penicillins (Verified Allergy, Unknown, 12/02/17) Rosuvastatin (Unverified Allergy, Unknown, ., 12/02/17) Salmeterol (Unverified Allergy, Unknown, ., 12/02/17) Medications Reported Home Medications Medications Dose Route/Sig Max Daily Dose Days Date Category Dose Instructions Co Q10 (Coenzyme Q10) 30 Mg Cap 1 Cap PO DAILY 12/04/17 Rx purchase [id number] Pravastatin Sodium 10 Mg Tab 1 Tab PO DAILY 30 12/04/17 Rx Prednisone 5 Mg Tab 5 Mg PO DAILY 12/04/17 Rx Plavix (Clopidogrel Bisulfate) 75 Mg Tab 75 Mg PO DAILY 12/02/17 Reported Vitamin D3 (Cholecalciferol) 2,000 Unit Cap 1 Cap PO DAILY 12/02/17 Reported Nitrostat (Nitroglycerin) 0.4 Mg Tab 0.4 Mg UT PRN PRN 12/02/17 Reported Aspirin Ec (Aspirin) 81 Mg Tab 81 Mg PO DAILY 12/02/17 Reported Proventil 0.083% 2.5MG/3ML (Albuterol Sulf) 2.5 Mg/3 Ml Nebu 1 Dose NEB Q6H PRN 12/02/17 Reported INHALE THE CONTENTS OF ONE (3ML) VIAL IN THE NEBULIZER EVERY 6 HOURS NEEDED FOR WHEEZING Ketoconazole 45 Appln/15 Gm Cr 1 Appln TOP BID 12/02/17 Reported apply topically to RIGHT HAND FOR SCALING twice a day for 2 weeks may repeat if needed Losartan Potassium 25 Mg Tab 1 Tab PO DAILY 12/02/17 Reported Carvedilol 3.125 Mg Tab 1 Tab PO BID 12/02/17 Reported Spiriva Respimat (Tiotropium Wendell) 1.25 Mcg/Act Aer 1 Cap INH DAILY 12/02/17 Reported Physical Exam Last Vital Signs Documentation Date Time Temp Pulse Resp B/P (MAP) Pulse Ox O2 Delivery O2 Flow Rate FiO2 12/04/17 16:38 36.8 83 20 95 Room Air 12/04/17 16:00 121/64 (83) General: Patient is alert and oriented. He is lying in bed in the ER surrounded by his daughter, , and grandchild. Neurologic Exam: Mental Status: Patient is oriented to person, place, and time. His supervisor intermediates memory seems intact. 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 Short term memory measured by 3 item recall was intact. Attention and concentration were normal. No difficulties with NIH picture cards for naming and describing scenes. Could read all presented words. Able to participate in full conversation with Telestroke Physician. No dysarthria. Cranial Nerves: I- not tested II, III- PERRL III, IV, - EOMI. V- Facial sensation normal bilaterally, bite strength normal VII- Smile slightly asymmetric. Rises slightly higher on left side VIII- Hearing grossly intact with some chronic hearing loss observed throughout the conversation IX, X- Palate elevation intact XI- Good shoulder shrug bilaterally XII- Tongue protrusion midline with good strength on lateral deviation Sensation: Normal bilaterally when left or right side was tested individually. Reported slight decreased sensation on left compared to right when tested simultaneously Strength: 5/5 in RUE and RLE. 3/5 in LUE and LLE. Normal tone. Reflexes: 1+ in biceps, brachioradialis, triceps, patellar, Achilles. Downgoing toes on plantar stimulation Cerebellum: Good finger nose absent of ataxia or dysmetria. Some shaking noticed with the left arm and hand, most likely due to weakened effort to hold arm up. Gait: Not assessed. Stroke alert team was in action. Would have required assistance to stand or walk due to R sided weakness. Laboratory Results Test 12/02/17 08:30 12/02/17 08:33 12/02/17 09:35 12/02/17 18:45 Range/Units Bedside Prothrombin Time INR 1.0 0.9-1.1 Activated Partial Thromboplast Time 24.8 21.0-31.0 SECONDS Partial Thromboplastin Ratio 1.0 Estimated Average Glucose 120 mg/dl Hemoglobin A1c 5.8 4.5-5.6 % Magnesium Level 1.9 1.8-2.4 mg/dl Total Bilirubin 1.0 0.2-1 mg/dl Direct Bilirubin 0.2 0-0.2 mg/dl Aspartate Amino Transf (AST/SGOT) 16 15-37 U/L Alanine Aminotransferase (ALT/SGPT) 27 12-78 U/L Alkaline Phosphatase 54 45-117 U/L Total Creatine Kinase 40 39-308 U/L Creatine Kinase MB 1.7 0.5-3.6 ng/ml Creatine Kinase MB Ratio 4.3 0-3.0 Troponin I 0.019 0-0.045 ng/ml Total Protein 6.7 6.4-8.2 gm/dl Albumin 3.5 3.4-5.0 gm/dl Urine Opiates Screen NEG NEG Urine Methadone, Qualitative NEG NEG Urine Barbiturates NEG NEG Urine Phencyclidine (PCP) Level NEG NEG Ur Amphetamine/Methamphetamine NEG NEG MDMA (Ecstasy) Screen NEG NEG Urine Benzodiazepines Screen NEG NEG Urine Cocaine Metabolite NEG NEG Urine Marijuana (THC) NEG NEG Urine Color YELLOW Urine Appearance CLEAR CLEAR Urine pH 5.5 4.5-7.5 Urine Specific [place] 1.015 1.000-1.030 Urine Protein NEG NEG Urine Glucose (UA) NEG NEG Urine Ketones NEG NEG Urine Occult Blood NEG NEG Urine Nitrite NEG NEG Urine Bilirubin NEG NEG Urine Urobilinogen NEG NEG Urine Leukocyte Esterase NEG NEG Test 12/03/17 06:19 12/03/17 09:30 12/04/17 05:26 Range/Units Bedside Glucose 85 70-99 mg/dl Triglycerides Level 179 0-150 mg/dl Cholesterol Level 143 0-200 mg/dl HDL Cholesterol 45 mg/dl LDL Cholesterol, Calculated 62 mg/dl VLDL Cholesterol, Calculated 36 mg/dl Cholesterol/HDL Ratio 3.2 White Blood Count 7.32 4.8-10.8 K/uL Red Blood Count 5.25 4.7-6.1 M/uL Hemoglobin 16.0 14.0-18.0 g/dL Hematocrit 45.8 42-52 % Mean Corpuscular Volume 87.2 80-100 fL Mean Corpuscular Hemoglobin 30.5 25-34 pg Mean Corpuscular Hemoglobin Concent 34.9 32-36 g/dl Platelet Count 143 130-400 K/uL Mean Platelet Volume 11.4 7.4-10.4 fL Neutrophils (%) (Auto) 72.1 % Lymphocytes (%) (Auto) 16.3 % Monocytes (%) (Auto) 9.0 % Eosinophils (%) (Auto) 1.8 % Basophils (%) (Auto) 0.4 % Neutrophils # (Auto) 5.28 1.4-6.5 K/uL Lymphocytes # (Auto) 1.19 1.2-3.4 K/uL Monocytes # (Auto) 0.66 0.11-0.59 K/uL Eosinophils # (Auto) 0.13 0-0.5 K/uL Basophils # (Auto) 0.03 0-0.2 K/uL RDW Standard Deviation 45.9 36.4-46.3 fL RDW Coefficient of Variation 14.4 11.5-14.5 % Immature Granulocyte % (Auto) 0.4 % Immature Granulocyte # (Auto) 0.03 0.00-0.02 K/uL Prothrombin Time 10.6 9.0-12.0 SECONDS Prothromb Time International Ratio 1.0 0.9-1.1 Sodium Level 139 136-145 mmol/L Potassium Level 3.9 3.5-5.1 mmol/L Chloride Level 104 98-107 mmol/L Carbon Dioxide Level 27 21-32 mmol/L Anion Gap 7.0 3-11 mmol/L Blood Urea Nitrogen 21 7-18 mg/dl Creatinine 1.20 0.60-1.40 mg/dl Est Creatinine Clear Calc Drug Dose 53.0 ml/min Estimated GFR () 65.3 Estimated GFR (Non- 56.4 BUN/Creatinine Ratio 17.8 10-20 Random Glucose 87 70-99 mg/dl Calcium Level 9.0 8.5-10.1 mg/dl Assessment & Plan Assessment and Plan: Agnieszka Singleton is an 82 year old Male who presented to the ED this morning with left-sided weakness, dysarthria, and left-sided headache. His HPI, imaging, physical exam, and ED course make TIA most likely. On exam, both his left upper and left lower extremities exhibited 3/5 strength. His reported facial droop resolved by the time he was brought in and began to receive workup from the ED care team. Given that Mr. Singleton had already begun to show signs of improvement, and his NIH Stroke Scale Score was at absolute most a 2, we weren' t entirely convinced this was a stroke. Negative CT imaging ruled out hemorrhagic etiologies for the time being. He doesn't have a history of seizures, making a post-seizure Wilmar Paralysis unlikely. He has never experienced numbness or weakness with a migraine headache before, so developing a new migraine variant without presence of an actual migraine headache during this episode makes Migraine etiology less likely as well. 1. TIA vs Ischemic Stroke -Obtain Brain MRI, and Head and Neck MRA to further evaluate Mr. Singleton's stroke -like symptoms. -Obtain Echocardiogram to explore possibility of cardioembolic etiology -Follow tPA protocol and resume Antiplatelet medications when appropriate, ~24 hours after administration of tPA. -Plan for a follow up noncontrast CT of the head in the next day or two to further exclude intracranial hemorrhage. 2. HTN -Continue to monitor patient's blood pressure. Keep BP at a MAP of 100. -Resume blood pressure medications when indicated per tPA protocol.
[2017-12-09] MEDS ORDERED: COEN100C11 PO ×2 (14:43)
[2017-12-09] MEDS ORDERED: PRVC/10 PO ×2 (14:43)
--- NOTE | 2017-12-09 22:30 | Discharge Summary ---
Discharge Summary Date of Service Dec 09, 2017. Discharge Summary Admission Date: Dec 02, 2017 at 10:14 Discharge Date: Dec 04, 2017 Discharge Disposition: Home Principal Diagnosis: TIA/possible stroke, s/p TPA Problems/Secondary Diagnoses: 1. CAD 2. hyperlipidemia 3. COPD 4. epistaxis, s/p packing to the left nostril 5. HTN 6. CKD stage 2 7. borderline pre-T2DM (hemoglobin a1c 5.8%) 8. h/o lung cancer 9. very mild thrombocytopenia 10. very tiny intra-cerebral aneurysms - follow-up in 6 months with repeat imaging advised to ensure stability Immunizations: Have You Had Influenza Vaccine: Yes History of Tetanus Vaccine?: Yes History of Pneumococcal: Yes History of Hepatitis B Vaccine: No Procedures: 1. echocardiogram: -- Conclusions -- 1. Normal left ventricular size and systolic function. Estimated EF 55-60%. No visualized wall motion abnormalities, but cannot exclude wall motion abnormalities given image quality. No left ventricular hypertrophy. Type 1 diastolic dysfunction. 2. Aortic valve sclerosis mild, without significant aortic valvular stenosis. 3. No visualized right to left inter atrial shunt following agitated saline injection. 4. Normal estimated right ventricular systolic pressure. 5. Technically difficult study, somewhat enhanced with IV Definity. 6. No significant change from prior study on 07/05/2016. 2. CT head #1 - FINDINGS: No acute intracranial hemorrhage, midline shift or mass effect is present. Ventricular system is normal. Basilar cisterns are patent. Slight prominence of the extra-axial CSF spaces is unchanged since exam of February 10, 2017. There are no findings to suggest acute dural sinus thrombosis or acute territorial infarct. There are no significant calvarial abnormalities. Mastoid air cells are clear. IMPRESSION: No acute intracranial findings. 3. MRI brain - IMPRESSION: Atrophy. Scattered encephalomalacia considered chronic. No acute process. 4. CT head #2 - Impression: No significant change compared to the prior study. No acute intracranial abnormality. 5. MRA neck - IMPRESSION: No significant stenosis, occlusion, or dissection identified within the carotid or vertebral arteries. Mild plaque formation of the carotid bifurcations. 6. MRA head - IMPRESSION: 1. No abrupt vessel cut off. 2.Two tiny intracranial aneurysms, each measuring 2 mm, arising from the left cavernous carotid and ophthalmic portion of the right internal carotid artery. 7. nasal packing to left nare due to epistaxis, s/p removal prior to discharge Consultations: 1. PT, OT, speech 2. critical care - Mathew Colvin MD 3. neurology - Shan Thayer MD Medication Reconciliation Continued Medications: Albuterol Sulf (Proventil 0.083% 2.5MG/3ML) 2.5 Mg/3 Ml Nebu 1 DOSE NEB Q6H PRN for Wheezing INHALE THE CONTENTS OF ONE (3ML) VIAL IN THE NEBULIZER EVERY 6 HOURS NEEDED FOR WHEEZING Aspirin (Aspirin Ec) 81 Mg Tab 81 MG PO DAILY Carvedilol (Carvedilol) 3.125 Mg Tab 3.125 MG PO BID Clopidogrel (Plavix) 75 Mg Tab 75 MG PO DAILY, TAB Coenzyme Q10 (Ubidecarenone) (Coq-10) 100 Mg Cap 100 MG PO DAILY Losartan Potassium (Losartan Potassium) 25 Mg Tab 25 MG PO DAILY Nitroglycerin (Nitrostat) 0.4 Mg Tab 0.4 MG UT PRN PRN for Chest Pain Pravastatin Sod (Pravastatin Sodium) 10 Mg Tab 10 MG PO DAILY Tiotropium Silver Plume (Spiriva Respimat) 1.25 Mcg/Act Aer 1 CAP INH DAILY Discharge Exam Physical Exam: General Appearance: WD/WN, no apparent distress ENT: pharynx normal, + pertinent finding (nasal packing removed from left nostril; old, dried blood present in nare) Neck: no JVD Respiratory/Chest: no respiratory distress, no accessory muscle use, + wheezing (mild end-exp b/l) Cardiovascular: regular rate, rhythm, no gallop, no murmur, normal peripheral pulses Abdomen / GI: normal bowel sounds, non tender, soft, no organomegaly Extremities: no pedal edema Neurologic/Psychiatric: surveyor oil well directional II-XII nml as tested, no motor/sensory deficits , alert, normal mood/affect, normal reflexes, oriented x 3 Skin: no rash Hospital Course HISTORY OF PRESENT ILLNESS: Mr. Singleton is an 82 y/o male with PMHx of CAD with STEMI and PCI x 4, HLD (off Statin), HTN, Pulmonary Emphysema/COPD, and H/O Lung CA S/P Resection (1998) who presents to the ED for L sided numbness/weakness that started this AM. Patient reports that he was his normal self when he woke up and ate breakfast. Last known well was approx. [id number] when he was sitting in his chair and developed L sided numbness and weakness of his upper and lower extremities. Also noted L facial droop. Speech was largely unaffected but did have one episode of aphasia that has since resolved. He has no prior H/O CVAs or arrhythmias. He is currently on ASA and Plavix for his CAD and took both medications this AM. He had telemedicine consult and tPA administered at approx. 0930. Patient reporting some improvement with his L sided deficits but not complete resolution. He had an associated L nasal bleed that was packed by ED physician. No other acute bleeding noted. He also complains of a mild ERICKSON that started with the L sided deficits without visual changes and has not worsened since administering tPA. Also reporting L lower rib discomfort that started this AM as well. He denies falls or trauma to this area. Patient has been dealing with URI x 1-2 months. He has completed 3 rounds antibiotics and multiple steroids. He currently is finishing a steroid taper. States his URI has improved but not resolved. Still with intermittent wheezing. Feels that he is having a lot of sinus congestion and post-nasal drip. HOSPITAL COURSE: Following tPA administration the patient was admitted to the ICU. Within several hours of tPA the patient's left-sided symptoms began to more[place], and by the next morning all symptoms/signs were essentially resolved. The patient was seen in consult by neurology and underwent an extensive TIA/ stroke work-up including MRI brain, MRA head/neck, echocardiogram, lipid profile , telemetry monitoring, etc. All studies were negative/normal including his MRI brain. Specifically the MRI did not reveal an area of stroke. Telemetry failed to show any a. fib or a. flutter. 3 possibilities exist for the patient's presentation - * TIA * an averted stroke that did not appear as an infarct on neuroimaging ( neuroimaging-negative cerebral ischemia) * complicated migraine but he has no history of such Regardless the patient will continue on aspirin and plavix for secondary prevention. Although he has had myalgias with several other statins he was willing to try another agent. He was prescribed low-dose pravastatin at discharge. Other issues addressed - 1. epistaxis - the packing from the left nostril was removed prior to discharge ; he did not have any recurrent bleeding after discontinuation. He will follow- up with Dr. Allan as outlined below. 2. HTN - BPs trended down during his stay and he will continue on his prior regimen of medications. 3. r/o a. fib/a. flutter - the patient will undergo a 30-day event monitor after discharge. This will be mailed to his home. He will follow-up with his manager public, Dr. Juan F Sahu, at the completion of the monitor. 4. COPD with mild exacerbation - he will complete a steroid taper that he had been taking prior to this admission. COPD remained stable while hospitalized. Due to the resolution of the patient's symptoms he will not require any PT/OT/ speech services following discharge. Total Time Spent: Greater than 30 minutes This includes examination of the patient, discharge planning, medication reconciliation, and communication with other providers. Discharge Instructions Please refer to the electronic Patient Visit Report (Discharge Instructions) for additional information. Follow-Up 1. Sarah FAN on December 10 at 10:45 am. 2. [facility] Neurology Office with Shannan Mcneill PA-C on ThursdayJanuary 04 at 1:[address] Allan, ENT - ThursdayDec 07 at 12:45 pm. 4. 30-day event monitor - to be mailed to the patient's home Additional Copies To Shannan Mcneill; Daryn Pettit M.D.; Shan Thayer M.D.; Juan F Sahu MD; La Allan M.D.
[2017-12-11] MEDS ORDERED: SALI0.6510 (17:54)
[2017-12-11] MEDS ORDERED: VRPSR180 PO (17:54)
== END 2017-12-04 18:24 | disposition home or self-care (01) | DRG 62 ==
LOC: EDBD 08:17 → C.EDB 08:18 → C.MSICU 10:14 → ENRESERV 10:40
PROVIDERS: ADMIT Internal Medicine; ATTEND Internal Medicine
PROC: 2Y41X5Z Packing of Nasal Region using Packing Material (ICD-10-PCS; principal; 2017-12-02)
PROC: 3E03317 Introduction of Other Thrombolytic into Peripheral Vein, Percutaneous Approach (ICD-10-PCS; principal; 2017-12-02)
DX: I63.8 Other cerebral infarction (principal); G81.94 Hemiplegia, unspecified affecting left nondominant side; J44.1 Chronic obstructive pulmonary disease with (acute) exacerbation; G45.9 Transient cerebral ischemic attack, unspecified; R29.810 Facial weakness; R04.0 Epistaxis; I25.10 Atherosclerotic heart disease of native coronary artery without angina pectoris; I25.2 Old myocardial infarction; I10 Essential (primary) hypertension; R51 Headache; R47.81 Slurred speech; Z79.02 Long term (current) use of antithrombotics/antiplatelets; Z79.82 Long term (current) use of aspirin; Z79.899 Other long term (current) drug therapy; Z85.118 Personal history of other malignant neoplasm of bronchus and lung; Z87.891 Personal history of nicotine dependence; Z88.0 Allergy status to penicillin; Z88.1 Allergy status to other antibiotic agents; Z88.5 Allergy status to narcotic agent; Z88.8 Allergy status to other drugs, medicaments and biological substances; Z91.041 Radiographic dye allergy status; Z95.5 Presence of coronary angioplasty implant and graft

== ENCOUNTER 2017-12-09 12:28 | Inpatient (IN) | payer BC, OTHER ==
[~2017-12-09] VITALS: Ht 182.9 cm; Wt 82.5 kg
[2017-12-09] VITALS (13 sets, daily range): BP systolic 128–156; BP diastolic 66–84; PULSE 85–96; TEMP 36.4–36.9; O2SAT 92–97; Ht 182.9 cm; Wt 82.5 kg
[~2017-12-09 12:28] MED LIST changes: +ALBINS/ NEB; -ASPEC81 PO; +ASPI81TA28 PO; -CARV3.122 PO; +CHOL2000 PO; +CLOP1TAB15 PO; +COEN1CAP PO; +CRG3125 PO; +CZR25 PO; -FLUV1CAP PO; -LISI10TA PO; +NTRGSL/4 UT; -NTRSLP4 SL; -PLV75 PO; +PRAV10TA39 PO; +PRD5 PO; -SPRIN/30 INH; +TIOT1AER2 INH
[2017-12-09 12:45] LABS: HEMATOCRIT 42.9 % (42-52); HEMOGLOBIN 14.8 g/dL (14.0-18.0); MEAN CELL VOLUME 87.6 fL (80-100); MEAN CORPUSCULAR HEMOGLOBIN 30.2 pg (25-34); MEAN CORPUSCULAR HGB CONC 34.5 g/dl (32-36); MEAN PLATELET VOLUME 10.6 fL (7.4-10.4); PLATELET COUNT 149 K/uL (130-400); RED CELL DISTRIBUTION WIDTH CV 14.5 % (11.5-14.5); RED CELL DISTRIBUTION WIDTH SD 46.8 fL (36.4-46.3); WHITE BLOOD COUNT 7.03 K/uL (4.8-10.8)
--- NOTE | 2017-12-09 12:50 | DIAGNOSTIC IMAGING REPORT ---
HEAD WITHOUT CONTRAST (CT) CLINICAL HISTORY: 82 years-old Male presenting with right sided weakness. TECHNIQUE: Multidetector CT imaging of the head was performed without the use of intravenous contrast. IV contrast: None. A dose lowering technique was used consistent with the principles of ALARA (as low as reasonably achievable). COMPARISON: 12/03/2017. CT DOSE (mGy.cm): The estimated cumulative dose is 788.63 mGycm. FINDINGS: Statistical Clerk Advertising topogram: Unremarkable. Ventricles and sulci normal in size. Brain parenchyma normal in appearance with preserved bailon-white differentiation. No mass effect or midline shift. No hemorrhage or acute territorial infarct. No extra-axial fluid collection. Air-fluid level in the left maxillary sinus. Calvarium intact. IMPRESSION: 1. No acute intracranial abnormality. 2. Air-fluid level in the left maxillary sinus suggests acute sinusitis. Electronically signed by: Jayson Malcolm M.D. 12/09/2017 12:49 PM Dictated Date/Time: 12/09/2017 12:47 PM
[2017-12-09 12:51] LABS: ISTAT CREATININE 1.4 mg/dl (0.6-1.3); ISTAT IONIZED CALCIUM 1.29 mmol/l (1.12-1.32); ISTAT POTASSIUM 4.3 mEq/L (3.3-5.0)
[2017-12-09 12:59] LABS: PTT PATIENT 27.1 SECONDS (21.0-31.0)
[2017-12-09 13:03] LABS: ALBUMIN 3.5 gm/dl (3.4-5.0); CREATININE 1.27 mg/dl (0.60-1.40); POTASSIUM 4.2 mmol/L (3.5-5.1)
[2017-12-09 13:06] LABS: TOTAL PROTEIN 7.3 gm/dl (6.4-8.2)
[2017-12-09] MEDS ORDERED: RECOMBINANT IV STA (13:36)
[2017-12-09] MEDS ORDERED: ALTEPLASE IV STA (13:36)
[2017-12-09] MEDS ORDERED: RECOMBINANT IV SCH ×2 (13:45)
[2017-12-09] MEDS ORDERED: ALTEPLASE IV SCH ×2 (13:45)
[2017-12-09] MEDS ORDERED: SET 2260-0500 IV ONE (13:45)
[2017-12-09] MEDS ORDERED: ACETAMINOPHEN 500 MG TAB PO STA (14:00)
--- NOTE | 2017-12-09 14:23 | DIAGNOSTIC IMAGING REPORT ---
HEAD WITHOUT CONTRAST (CT) CLINICAL HISTORY: 82 years-old Male presenting with headache frontal after tpa. TECHNIQUE: Multidetector CT imaging of the head was performed without the use of intravenous contrast. IV contrast: None. A dose lowering technique was used consistent with the principles of ALARA (as low as reasonably achievable). COMPARISON: 12/09/2017. CT DOSE (mGy.cm): The estimated cumulative dose is 788.63 mGycm. FINDINGS: Partridge Farmer topogram: Unremarkable. Ventricles and sulci normal in size. Brain parenchyma normal in appearance with preserved bailon-white differentiation. No mass effect or midline shift. No hemorrhage or acute territorial infarct. No extra-axial fluid collection. Air-fluid level versus mucosal thickening in the left maxillary sinus. Calvarium intact. IMPRESSION: 1. No acute intracranial abnormality. No hemorrhage. Electronically signed by: Jayson Malcolm M.D. 12/09/2017 2:21 PM Dictated Date/Time: 12/09/2017 2:16 PM
--- NOTE | 2017-12-09 14:34 | EMERGENCY ROOM VISIT NOTE ---
History Report prepared by Laine: Adrianna Raines Under the Supervision of: Dr. Adi Hernandez D.O. 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 The patient was shopping at [employer] with his family when he suddenly developed weakness in his right arm and leg and a right-sided facial droop. His family brought him to the ED for further evaluation. The patient was evaluated in the ED 1 week ago on 12/02/17 for left-sided weakness and stroke-like symptoms. He received TPA at that time. He had a nosebleed after TPA. Daughter states that he saw ENT earlier today and currently has a packing in the left naris. 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 A total of 10 systems reviewed and were otherwise negative. 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125 MG PO BID Clopidogrel (Plavix), 75 MG PO DAILY Coenzyme Q10 (Ubidecarenone) (Coq-10), 100 MG PO DAILY Losartan Potassium (Losartan Potassium), 25 MG PO DAILY Pravastatin Sod (Pravastatin Sodium), 10 MG PO DAILY Tiotropium [place] (Spiriva Respimat), 1 CAP INH DAILY Scheduled PRN Albuterol Sulf (Proventil 0.083% 2.5MG/3ML), 1 DOSE NEB Q6H PRN for Wheezing Nitroglycerin (Nitrostat), 0.4 MG UT PRN PRN for Chest Pain Allergies Coded Allergies: Atorvastatin (Unverified Allergy, Unknown, ., 12/02/17) Cephalosporins (Verified Allergy, Unknown, 12/02/17) Fluticasone (Unverified Allergy, Unknown, ., 12/02/17) Fluvastatin (Unverified Allergy, Unknown, ., 12/02/17) Iodinated Diagnostic Agents (Verified Allergy, Unknown, `, 12/09/17) Lisinopril (Unverified Allergy, Unknown, ., 12/02/17) Oxycodone (Verified Allergy, Unknown, HIVES, 12/02/17) ABLE TO TAKE TYLENOL Penicillins (Verified Allergy, Unknown, 12/09/17) Rosuvastatin (Unverified Allergy, Unknown, ., 12/02/17) Salmeterol (Unverified Allergy, Unknown, ., 12/02/17) Physical Exam Vital Signs Date Time Temp Pulse Resp B/P (MAP) Pulse Ox O2 Delivery O2 Flow Rate FiO2 12/09/17 14:55 85 22 181/96 94 Room Air 12/09/17 14:40 80 22 156/110 94 Room Air 12/09/17 14:25 78 24 135/89 95 Room Air 12/09/17 14:17 79 21 137/77 95 Room Air 12/09/17 14:00 78 24 161/93 94 Room Air 12/09/17 13:54 82 24 166/80 93 Room Air 12/09/17 13:48 80 20 93 12/09/17 13:44 78 28 159/75 96 12/09/17 13:38 78 18 158/98 95 12/09/17 13:33 81 31 144/124 92 12/09/17 13:28 82 28 95 12/09/17 13:23 81 27 158/93 93 12/09/17 13:18 90 27 93 12/09/17 13:16 152/110 12/09/17 13:13 80 25 93 12/09/17 13:08 78 28 93 12/09/17 13:03 81 29 93 2/28/18 13:01 142/90 12/09/17 13:00 81 21 142/90 93 Room Air 12/09/17 12:58 85 20 94 12/09/17 12:53 83 24 92 12/09/17 12:52 165/88 12/09/17 12:50 84 31 165/88 93 Room Air 12/09/17 12:48 88 27 92 12/09/17 12:43 91 20 91 12/09/17 12:40 144/89 12/09/17 12:32 36.6 86 15 165/89 96 Room Air 12/09/17 12:31 91 12/09/17 12:30 93 Room Air Physical Exam VITAL SIGNS: were reviewed as above. GENERAL:Non-toxic in appearance. SKIN: Warm dry and pink. HEAD: Normocephalic and atraumatic. OROPHARYNX: Is clear and moist NECK: Supple without lymphadenopathy or meningismus. LUNGS: clear. HEART: Regular rate and rhythm. ABDOMEN: Soft and nontender. EXTREMITIES: Warm and well perfused. NEUROLOGICALLY: Awake alert and oriented. He has weakness of the right arm and right leg. He has some right sided facial weakness. Cranial nerves 2-12 are intact. There is no pronator drift. Cerebellar testing is within normal limits. There is no nystagmus. Speech is clear. Vision is grossly normal. MUSCULOSKELETAL: Good muscle tone. No evidence of trauma. Medical Decision & Procedures ER Provider Diagnostic Interpretation: Radiology results as stated below per my review and radiologist interpretation: HEAD WITHOUT CONTRAST (CT) CLINICAL HISTORY: 82 years-old Male presenting with right sided weakness. TECHNIQUE: Multidetector CT imaging of the head was performed without the use of intravenous contrast. IV contrast: None. A dose lowering technique was used consistent with the principles of ALARA (as low as reasonably achievable). COMPARISON: 12/03/2017. CT DOSE (mGy.cm): The estimated cumulative dose is 788.63 mGycm. 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 Ventricles and sulci normal in size. Brain parenchyma normal in appearance with preserved bailon-white differentiation. No mass effect or midline shift. No hemorrhage or acute territorial infarct. No extra-axial fluid collection. Air-fluid level in the left maxillary sinus. Calvarium intact. IMPRESSION: 1. No acute intracranial abnormality. 2. Air-fluid level in the left maxillary sinus suggests acute sinusitis. Electronically signed by: Jayson Malcolm M.D. 12/09/2017 12:49 PM Dictated Date/Time: 12/09/2017 12:47 PM HEAD WITHOUT CONTRAST (CT) CLINICAL HISTORY: 82 years-old Male presenting with headache frontal after tpa. TECHNIQUE: Multidetector CT imaging of the head was performed without the use of intravenous contrast. IV contrast: None. A dose lowering technique was used consistent with the principles of ALARA (as low as reasonably achievable). COMPARISON: 12/09/2017. CT DOSE (mGy.cm): The estimated cumulative dose is 788.63 mGycm. 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 Ventricles and sulci normal in size. Brain parenchyma normal in appearance with preserved bailon-white differentiation. No mass effect or midline shift. No hemorrhage or acute territorial infarct. No extra-axial fluid collection. Air-fluid level versus mucosal thickening in the left maxillary sinus. Calvarium intact. IMPRESSION: 1. No acute intracranial abnormality. No hemorrhage. Electronically signed by: Jayson Malcolm M.D. 12/09/2017 2:21 PM Dictated Date/Time: 12/09/2017 2:16 PM Laboratory Results 12/09/17 12:30 12/09/17 12:30 Test 12/09/17 12:30 12/09/17 12:38 12/09/17 12:41 Red Blood Count 4.90 M/uL (4.7-6.1) Mean Corpuscular Volume 87.6 fL (80-100) Mean Corpuscular Hemoglobin 30.2 pg (25-34) Mean Corpuscular Hemoglobin Concent 34.5 g/dl (32-36) RDW Standard Deviation 46.8 fL (36.4-46.3) RDW Coefficient of Variation 14.5 % (11.5-14.5) Mean Platelet Volume 10.6 fL (7.4-10.4) Prothrombin Time 10.3 SECONDS (9.0-12.0) Prothromb Time International Ratio 1.0 (0.9-1.1) Activated Partial Thromboplast Time 27.1 SECONDS (21.0-31.0) Partial Thromboplastin Ratio 1.0 Est Creatinine Clear Calc Drug Dose 50.1 ml/min Estimated GFR () 61.0 Estimated GFR (Non- 52.6 BUN/Creatinine Ratio 18.1 (10-20) Calcium Level 9.0 mg/dl (8.5-10.1) Total Bilirubin 0.9 mg/dl (0.2-1) Aspartate Amino Transf (AST/SGOT) 17 U/L (15-37) Alanine Aminotransferase (ALT/SGPT) 45 U/L (12-78) Alkaline Phosphatase 64 U/L (45-117) Total Protein 7.3 gm/dl (6.4-8.2) Albumin 3.5 gm/dl (3.4-5.0) Globulin 3.8 gm/dl (2.5-4.0) Albumin/Globulin Ratio 0.9 (0.9-2) Bedside Hemoglobin 15.0 g/dl (14.0-18.0) Bedside Hematocrit 44 % (42-52) Bedside Sodium 141 mEq/L (135-144) Bedside Potassium 4.3 mEq/L (3.3-5.0) Bedside Chloride 102 mEq/L (101-112) Bedside Total CO2 27 mEq/l (24-31) Anion Gap 18.0 mmol/L (16-25) Bedside Blood Urea Nitrogen 24 mg/dl (7-18) Bedside Creatinine 1.4 mg/dl (0.6-1.3) Bedside Glucose (other) 97 mg/dl (70-99) Bedside Ionized Calcium (Best) 1.29 mmol/l (1.12-1.32) Bedside Prothrombin Time INR 1.0 (0.9-1.1) Laboratory results as stated above per my review. Medications Administered Medications (Trade) Dose Ordered Sig/Umesh Route Start Time Stop Time Status Last Admin Dose Admin Alteplase, Recombinant 75.6 mg/Empty Bag 75.6 ml @ 75.6 mls/hr TODAY@1345 IV 12/09/17 13:45 12/09/17 14:44 DC 12/09/17 13:39 75.6 MLS/HR Alteplase, Recombinant 8.4 mg/Syringe 8.4 ml @ 8.4 mls/min TODAY@1345 IV 12/09/17 13:45 12/09/17 13:46 DC 12/09/17 13:39 8.4 MLS/MIN Procedure Anterior Nasal Packing Indication: epistaxis Verbal consent obtained. Risks and benefits were explained with the usual customary discussion. A time out was taken. Clots were removed with suction. The left naris was prepped with Afrin and lidocaine. A 5.5-cm nasal balloon was placed in a standard fashion. The patient tolerated this well. Hemostasis was achieved. No complications. ECG Per My Interpretation Indication: weakness Rate (beats per minute): 87 Rhythm: normal sinus Findings: no ectopy, other (no ST elevations) ED Course 1230: Previous medical records were reviewed. The patient was evaluated in room B1. A complete history and physical examination was performed. A stroke alert was called. He was taken emergently to CT scan. 1245: The patient returned from CT scan. I updated the patient and his family on the results and treatment plan. 1250: I discussed the case with Dr. Reagan of neurology at [facility]. He was familiar with the patient as he had handled the previous stroke alert on 12/02/17. He will evaluate the patient via Telestroke at this time. 1324: I reassessed the patient and discussed the results and treatment plan with Dr. Reagan and the family. 1338: The patient and his family are in agreement with receiving TPA. 1345: Alteplase Recombinant 8.4 mg/syringe IV 1359: The patient is complaining of a headache that he rates as an 8/10 in pain. 1400: Tylenol tab 1000 mg PO 1403: TPA was stopped and the patient is experiencing a nosebleed. 1404: I reassessed the patient at this time. He will be getting a second CT scan of his brain. 1406: I spoke with Dr. Reagan regarding the patient's case and he recommended that the patient stay in the hospital for further management. 1413: I spoke with Dr. Alva Howard. We discussed the patient's case. The patient will be evaluated by the [facility] for further management. 1424: The repeat CT scan was negative. Pt restarted on TPA. 1437: I spoke with Dr. Allan of ENT. He recommended nasal packing. 1440: At this time I performed an anterior nasal packing procedure. Please see the note above for further details. Medical Decision Differentials include: Acute coronary syndrome, myocardial infarction, CVA, TIA , anemia, infection, pneumonia, UTI, pyelonephritis, poor nutrition, dehydration , electrolyte disturbance, and hypoglycemia. This is an 82-year-old male who presents to the ED with a chief complaint of CVA. The patient states that about 40 minutes before his arrival here, he developed right sided leg, arm and facial weakness. The patient states that he was shopping at a local supermarket when this occurred. The patient had a CVA about 6 days ago and received TPA. Of note, the MRI of the brain did not show any acute abnormalities. The patient's blood work here looks normal, CT scan of the brain did not show any acute abnormality and EKG shows a normal sinus rhythm. Stroke alert was called shortly after the patient arrived. The patient was evaluated by Dr. Pettit, [place] [facility], via tele-stroke. After discussion with the family, the patient desired to have the thrombolytics provided. These were started. The patient developed a frontal headache a short time into the thrombolytic administration. A repeat CT scan of the brain did not show any acute process. He was given Tylenol p.o. for this. His headache did improve. The patient developed a anterior left epistaxis. I spoke with Dr. Allan about this. He recommended a 7.5 centimeter nasal packing Rhino Rocket. This was placed. Some oozing continued. I spoke with the hospitalist, who will see the patient for further inpatient evaluation and care. Medication Reconcilliation Current Medication List: was personally reviewed by me Blood Pressure Screening Patient's blood pressure: Elevated blood pressure Blood pressure disposition: Referred to PCP Consults Time Called: 1247 Consulting Physician: Dr. Reagan Returned Call: 1250 I discussed the case with Dr. Reagan of neurology at [facility]. He was familiar with the patient as he had handled the previous stroke alert on 12/02/17. He will evaluate the patient via Telestroke at this time. Additional Consults: Time Called: 1406 Consulted Physician: Dr. Reagan Returned Call: 1406 Additional Comments: I spoke with Dr. Reagan regarding the patient's case and he recommended that the patient stay in the hospital for further management. Time Called: 1408 Consulted Physician: Dr. Alva Howard Returned Call: 1413 Additional Comments: I spoke with Dr. Alva Howard. We discussed the patient's case. The patient will be evaluated by the [facility] for further management. Impression Primary Impression: CVA (cerebral vascular accident) Critical Care I have personally spent greater than 35 minutes of critical care time in the direct management of this patient. This includes bedside care, interpretation of diagnostic studies, and testing, discussion with consultants, patient, and family members, and other required patient management activities. This 35 minutes is in excess of all separately billable procedures. Scribe Attestation The scribe's documentation has been prepared under my direction and personally reviewed by me in its entirety. I confirm that the note above accurately reflects all work, treatment, procedures, and medical decision making performed by me. Departure Information Dispostion Being Evaluated By Hospitalist Referrals Daryn Pettit M.D. (PCP) Patient Instructions My [facility] Stroke History Time Last Known Well 1150 Stroke t-PA Criteria Reviewed Meets criteria for t-PA Reason t-PA Not Given Treatment provided - N/A
[2017-12-09] MEDS ORDERED: COEN100C11 PO (14:43)
[2017-12-09] MEDS ORDERED: PRVC/10 PO (14:43)
[2017-12-09] MEDS ORDERED: MAGNESIUM HYDROXIDE SUSP 30 ML UDC PO PRN (15:15)
[2017-12-09] MEDS ORDERED: ACETAMINOPHEN 325 MG TAB PO PRN (15:15)
[2017-12-09] MEDS ORDERED: ONDANSETRON INJ 2 MG/ML 2 ML VIAL IV PRN (15:15)
[2017-12-09] MEDS ORDERED: ALUMINUM/MAGNESIUM/SIMETH (MAALOX MAX) 30 ML UDC PO PRN (15:15)
[2017-12-09] MEDS ORDERED: HydrALAZINE HCL 20 MG/ML VIAL IV. PRN (15:15)
[2017-12-09] MEDS ORDERED: PHARMACIST DISCHARGE MED REC CONSULT PRN (15:15)
[2017-12-09] MEDS ORDERED: ICU PROTOCOL FOR HYPERGLYCEMIA PRN (15:15)
[2017-12-09] MEDS ORDERED: METOPROLOL TARTRATE 1 MG/ML VIAL IV PRN (16:15)
--- NOTE | 2017-12-09 16:43 | History and Physical ---
History & Physical Date & Time of Service: Dec 09, 2017 at 16:20 Chief Complaint: Stroke Symptoms Primary Care Physician: Daryn Pettit M.D. History of Present Illness Source: patient, family, hospital records 82 years man with Hx of dyslipidemia, HTN, COPD, Lung CA S/P resection in 1998 and CAD S/P STEMI / PCI X 4. last week he presented with left sided weakness S/ P TPA, weakness improved and patient had a negative MRI and was discharged. after tpa last week he had some epistaxis and was packed. today he saw ENT physician early in the morning no cauterization was required. at around 11:30 he developed weakness and numbness in right lower ext. then slowly his weakness went to upper ext and face. presented to the hospital with right sided weakness and facial droop. tele neurologist was consulted . TPA was ordered, during TPA infusion he had some epistaxis requiring packing. He developed headache and TPA had to be held , CT head was repeated that showed no intracranial bleed. TPA was continued again. His blood pressure was noticed to be systolic more than 180, he was given 15 mg of hydralazine IV. His systolic blood pressure dropped to 70 and he required a bolus of normal saline. Currently blood pressure 130 systolic, his hydralazine was stopped and instead he will be on Lopressor 2.5 mg IV every 6 hours as needed systolic blood pressure more than 175. Patient continued to lose blood from his nose, he was noticed to have platelets of 149, being on aspirin and Plavix 2 units of platelets were ordered. 2 units packed RBCs were preserved but not ordered Family History Cancer Diabetes mellitus Heart disease Hypertension Lung disease Social History Smoking Status: Former Smoker Drug Use: none Marital Status: Housing status: lives with family Occupational Status: retired Immunizations History of Influenza Vaccine: Yes History of Tetanus Vaccine?: Yes History of Pneumococcal: Yes History of Hepatitis B Vaccine: No Allergies Coded Allergies: Atorvastatin (Unverified Allergy, Unknown, ., 12/02/17) Cephalosporins (Verified Allergy, Unknown, 12/02/17) Fluticasone (Unverified Allergy, Unknown, ., 12/02/17) Fluvastatin (Unverified Allergy, Unknown, ., 12/02/17) Iodinated Diagnostic Agents (Verified Allergy, Unknown, `, 12/09/17) Lisinopril (Unverified Allergy, Unknown, ., 12/02/17) Oxycodone (Verified Allergy, Unknown, HIVES, 12/02/17) ABLE TO TAKE TYLENOL Penicillins (Verified Allergy, Unknown, 12/09/17) Rosuvastatin (Unverified Allergy, Unknown, ., 12/02/17) Salmeterol (Unverified Allergy, Unknown, ., 12/02/17) Home Medications Scheduled Aspirin (Aspirin Ec), 81 MG PO DAILY Carvedilol (Carvedilol), 3.125 MG PO BID Clopidogrel (Plavix), 75 MG PO DAILY Coenzyme Q10 (Ubidecarenone) (Coq-10), 100 MG PO DAILY Losartan Potassium (Losartan Potassium), 25 MG PO DAILY Pravastatin Sod (Pravastatin Sodium), 10 MG PO DAILY Tiotropium [place] (Spiriva Respimat), 1 CAP INH DAILY Scheduled PRN Albuterol Sulf (Proventil 0.083% 2.5MG/3ML), 1 DOSE NEB Q6H PRN for Wheezing Nitroglycerin (Nitrostat), 0.4 MG UT PRN PRN for Chest Pain Review of Systems Review of system Constitutional: No fever / no chills / no sweats / no weakness / no fatigue Eyes: no blurring of vision / no eye pain / no discharge / no redness ENT: no hearing loss / no epistaxis /no swallowing problems Respiratory: no cough / no wheezing / no SOB / no hemoptysis Cardiovascular: no Chest pain / no lower extremity edema / no palpitation Abdomen: no pain / no nausea / no vomiting / no constipation Musculoskeletal: no joint pain / no muscle pain / no joint swelling Genitourinary: no dysuria / no incontinence / no urinary retention Neurologic: Right-sided weakness and numbness, right facial droop Psychiatric: no depression symptoms / no anxiety / no insomnia Endocrine: no excessive thirst / no excessive urination Hematologic: no abnormal bleeding / no bruising / no LN swelling Skin: No rash / no pallor Physical Exam Vital Signs Date Time Temp Pulse Resp B/P (MAP) Pulse Ox O2 Delivery O2 Flow Rate FiO2 12/09/17 15:55 96 25 153/75 95 Room Air 12/09/17 15:40 98 23 156/91 96 Room Air 12/09/17 15:10 90 27 176/111 96 Room Air 12/09/17 14:55 85 22 181/96 94 Room Air 12/09/17 14:40 80 22 156/110 94 Room Air 12/09/17 14:25 78 24 135/89 95 Room Air 12/09/17 14:17 79 21 137/77 95 Room Air 12/09/17 14:00 78 24 161/93 94 Room Air 12/09/17 13:54 82 24 166/80 93 Room Air 12/09/17 13:48 80 20 93 12/09/17 13:44 78 28 159/75 96 12/09/17 13:38 78 18 158/98 95 12/09/17 13:33 81 31 144/124 92 12/09/17 13:28 82 28 95 12/09/17 13:23 81 27 158/93 93 12/09/17 13:18 90 27 93 12/09/17 13:16 152/110 12/09/17 13:13 80 25 93 12/09/17 13:08 78 28 93 12/09/17 13:03 81 29 93 12/09/17 13:01 142/90 12/09/17 13:00 81 21 142/90 93 Room Air 12/09/17 12:58 85 20 94 12/09/17 12:53 83 24 92 12/09/17 12:52 165/88 12/09/17 12:50 84 31 165/88 93 Room Air 12/09/17 12:48 88 27 92 12/09/17 12:43 91 20 91 12/09/17 12:40 144/89 12/09/17 12:32 36.6 86 15 165/89 96 Room Air 12/09/17 12:31 91 12/09/17 12:30 93 Room Air Physical examination General patient appears to be comfortable, not in acute distress HEENT: Atraumatic , normocephalic /no jaundice /no pallor /anicteric /no dry mucous membrane /normal external ear inspection Neck: Supple /no swelling /central trach Heart: S1/S2 normal/regular rate and rhythm/no gallop /no rub /no murmur Lungs: Clear to auscultation bilaterally/normal chest with expansion/no rhonchi/ no rales/no wheezing/no use of accessory muscles of respiration Abdomen: Soft/nontender/no guarding/no rebound/no organomegaly/no pulsatile mass Musculoskeletal: No swelling/no edema/no tenderness/normal range of motion Neuro exam: Awake alert oriented 3/cranial nerves II through XII appear to be intact/sensation intact/moves all extremities but has some weakness on the right upper and lower extremity 4/5, patient completely resolved, patient was examined after TPA Psychiatric evaluation: No depressed mood/normal affect Skin: No rash on exposed skin area/no erythema Extremity: Normal pulse/no pitting edema/no clubbing or cyanosis Endocrine/lymphatic: No obvious lymphadenopathy /no lymphedema Diagnostics Laboratory Results Results Past 24 Hours Test 12/09/17 12:30 12/09/17 12:38 12/09/17 12:41 12/09/17 15:02 Range/Units White Blood Count 7.03 4.8-10.8 K/uL Red Blood Count 4.90 4.7-6.1 M/uL Hemoglobin 14.8 14.0-18.0 g/dL Hematocrit 42.9 42-52 % Mean Corpuscular Volume 87.6 80-100 fL Mean Corpuscular Hemoglobin 30.2 25-34 pg Mean Corpuscular Hemoglobin Concent 34.5 32-36 g/dl RDW Standard Deviation 46.8 36.4-46.3 fL RDW Coefficient of Variation 14.5 11.5-14.5 % Platelet Count 149 130-400 K/uL Mean Platelet Volume 10.6 7.4-10.4 fL Prothrombin Time 10.3 9.0-12.0 SECONDS Prothromb Time International Ratio 1.0 0.9-1.1 Activated Partial Thromboplast Time 27.1 21.0-31.0 SECONDS Partial Thromboplastin Ratio 1.0 Sodium Level 138 136-145 mmol/L Potassium Level 4.2 3.5-5.1 mmol/L Chloride Level 105 98-107 mmol/L Carbon Dioxide Level 28 21-32 mmol/L Anion Gap 5.0 18.0 16-25 mmol/L Blood Urea Nitrogen 23 7-18 mg/dl Creatinine 1.27 0.60-1.40 mg/dl Est Creatinine Clear Calc Drug Dose 50.1 ml/min Estimated GFR () 61.0 Estimated GFR (Non- 52.6 BUN/Creatinine Ratio 18.1 10-20 Random Glucose 95 70-99 mg/dl Calcium Level 9.0 8.5-10.1 mg/dl Total Bilirubin 0.9 0.2-1 mg/dl Aspartate Amino Transf (AST/SGOT) 17 15-37 U/L Alanine Aminotransferase (ALT/SGPT) 45 12-78 U/L Alkaline Phosphatase 64 45-117 U/L Total Protein 7.3 6.4-8.2 gm/dl Albumin 3.5 3.4-5.0 gm/dl Globulin 3.8 2.5-4.0 gm/dl Albumin/Globulin Ratio 0.9 0.9-2 Bedside Hemoglobin 15.0 14.0-18.0 g/dl Bedside Hematocrit 44 42-52 % Bedside Sodium 141 135-144 mEq/L Bedside Potassium 4.3 3.3-5.0 mEq/L Bedside Chloride 102 101-112 mEq/L Bedside Total CO2 27 24-31 mEq/l Bedside Blood Urea Nitrogen 24 7-18 mg/dl Bedside Creatinine 1.4 0.6-1.3 mg/dl Bedside Glucose (other) 97 70-99 mg/dl Bedside Ionized Calcium (Best) 1.29 1.12-1.32 mmol/l Bedside Prothrombin Time INR 1.0 0.9-1.1 Impression Assessment and Plan 82 years man with Hx of dyslipidemia, HTN, COPD, Lung CA S/P resection in 1998 and CAD S/P STEMI / PCI X 4. last week he presented with left sided weakness S/ P TPA, weakness improved and patient had a negative MRI and was discharged. after tpa last week he had some epistaxis and was packed. Presented to the hospital today with right-sided weakness and right facial droop. 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 Thromboathenia secondary to aspirin and Plavix with mild thrombocytopenia Hypertensive urgency, likely secondary to CVA Recurrent neurologic presentation, rule out embolic phenomena CAD status post stenting/PCI 4 History of lung cancer status post resection in 1998 Dyslipidemia, lipids are under control COPD with no exacerbation Plan Admit patient to ICU Continue home meds except blood pressure medications for permissive hypertension , hold blood pressure medications, had an exaggerated response to hydralazine IV that led to hypotension, will only give Lopressor 2.5 mg IV every 6 hours as needed systolic blood pressure more than 175 Ultrasound carotid was ordered for today to rule out any critical stenosis to evaluate carotid blood flow, MRA last week showed no significant stenosis, with MRA evaluation for carotid blood flow 2D echo last week showed normal ejection fraction, diastolic dysfunction grade 1 , patient might require transesophageal echo to rule out any embolic source Empiric aspirin/statin tomorrow after 24 hours from TPA MRI of the brain tomorrow prior to discharge Consult neurologist Consult ENT for epistaxis Crossmatch 2 units of packed RBCs and keep them at home H&H every 8 hours Transfuse 2 units of platelets, platelet count is 149 but patient on both aspirin and Plavix, after having TPA he continues to lose blood from his nose, although not typically meeting criteria for platelets transfusion, but it was a judgment: To eliminate thromboathenia as contributing factor to his epistaxis by transfusions of platelets Heparin for DVT prophylaxis starting 24 hours after TPA, if patient continued to bleed from his nose do not order heparin subcu SCD boots ordered to start 24 hours from NB: His blood pressure was noticed to be systolic more than 180, he was given 15 mg of hydralazine IV. His systolic blood pressure dropped to 70 and he required a bolus of normal saline. Currently blood pressure 130 systolic, his hydralazine was stopped and instead he will be on Lopressor 2.5 mg IV every 6 hours as needed systolic blood pressure more than 175. Patient is full code as per discussion with patient and his daughter, he does not want to live on machines, but would like us to try everything first which makes full code 40 minutes of critical care time spent on this encounter Resuscitation Status VTE Prophylaxis Will order VTE Prophylaxis: Yes
[2017-12-09] MEDS ORDERED: OXYMETAZOLINE HCL 0.05% NA SPR 15 ML BTL ONE (17:27)
[2017-12-09] MEDS: HYDROmorphone INJ 0.5 MG/0.5 ML SYR IV PRN (18:45)
--- NOTE | 2017-12-09 18:50 | DIAGNOSTIC IMAGING REPORT ---
ULTRASOUND OF THE CAROTID ARTERIES CLINICAL HISTORY: Stroke COMPARISON STUDY: MR angiography neck dated December 02, 2017 TECHNIQUE: Real-time, grayscale, and color Doppler sonography of the carotid arteries was performed. Imaging reviewed in the transverse and longitudinal planes. NASCET criteria was utilized for stenosis calcification. FINDINGS: There is mild atherosclerotic plaque present . The peak systolic velocity within the right internal carotid artery is 76 cm/sec. The systolic velocity ratio of right internal to common carotid artery is 0.7. The peak systolic velocity within the left internal carotid artery is 77 cm/sec. The systolic velocity ratio left internal to common carotid artery is 0.8. Antegrade flow is seen in the vertebral arteries. The external carotid arteries are patent. IMPRESSION: No evidence of hemodynamically significant carotid stenosis. Electronically signed by: Ortega Nino M.D. 12/09/2017 6:48 PM Dictated Date/Time: 12/09/2017 6:47 PM
[2017-12-09] MEDS: SODIUM CHLORIDE 0.9% 1000ML 1,000 ML IV SCH (19:19)
--- NOTE | 2017-12-09 19:54 | Critical Care Consultation ---
Critical Care Consultation Date of Consultation: Dec 09, 2017. Attending Physician: Robin Kang MD Reason for Consultation: Stroke-like Symptoms History of Present Illness Agnieszka Singleton is an 82yo male (past medical history that includes dyslipidemia on a statin, HTN and CAD S/P STEMI / PCI X 4 on plavix, ASA, Carvedilol and ARB , COPD on Spiriva, Lung CA S/P resection in 1998 and migraines) who presented to the emergency department 7 days s/p TPA for left sided weakness without acute findings per MRI and 3 days s/p nasal cauterization by Dr. Allan for recurrent epistaxis that he has been suffering from since September. Pt was then grocery shopping today at 1150 when he developed right sided weakness and right sided facial droop. [facility]. Code stroke was called and pt was seen via telemedicine and elected for TPA treatment again. Pt developed epistaxis likely due to plavix use, low platelets and TPA. Pt received 2 units of platelets and eventually rhino rocket nasal packing per recommendation of ENT. He has experienced high SBPs today and did not initially tolerate treatment with hydralazine; his pressures dropped and pt required fluid bolus. Pt states he suffers from migraines approx 1 every 6m or so. He can not define an aura for it, but does state that he takes Tylenol and sleeps it off in a dark room. Pt does state that during both of the stroke like episodes recently he suffered with a headache, though the location of the headache has changed from superior portion of the left side to the left orbital/temporal area. Todays episode when described in detail was that of an ascending numbness and heaviness that took about 10 minutes to progress from foot through the upper extremity. Pt states he had felt a passing moment of dizziness beforehand. Pt came directly to the ED. He is still complaining of orbital/temporal pain, not pulsatile in nature but intermittently changing between the two locations. Dilaudid has not reduced his pain level of 8/10. The patient denies weight loss, fever, change in vision, sore throat, chest pain , palpitations, awareness of tachyarrhythmias, leg swelling, shortness of breath , cough, nausea, vomiting, bloody stools, diarrhea, constipation, abdominal pain , other changes in urine or bowel habits. Past Medical/Surgical History Medical Problems: Diverticulosis Colon (W/O Ment Of Hemorrhage) Emphysematous Bleb Mal Aleks Bronch/Lung Nos Mal Aleks Upper Lobe Lung Pneumonia, Organism Nos Unstable angina Surgical Problems: History of cardiac cath Stented coronary artery Appendectomy Knee Joint Replacement Status Lobectomy of lung Family History Cancer Diabetes mellitus Heart disease Hypertension Lung disease Social History Smoking Status: Former Smoker Drug Use: none Marital Status: Housing Status: lives with family, unknown Occupation Status: retired Allergies Coded Allergies: Atorvastatin (Unverified Allergy, Unknown, ., 12/02/17) Cephalosporins (Verified Allergy, Unknown, 12/02/17) Fluticasone (Unverified Allergy, Unknown, ., 12/02/17) Fluvastatin (Unverified Allergy, Unknown, ., 12/02/17) Iodinated Diagnostic Agents (Verified Allergy, Unknown, `, 12/09/17) Lisinopril (Unverified Allergy, Unknown, ., 12/02/17) Oxycodone (Verified Allergy, Unknown, HIVES, 12/02/17) ABLE TO TAKE TYLENOL Penicillins (Verified Allergy, Unknown, 12/09/17) Rosuvastatin (Unverified Allergy, Unknown, ., 12/02/17) Salmeterol (Unverified Allergy, Unknown, ., 12/02/17) Home Medications Scheduled Aspirin (Aspirin Ec), 81 MG PO DAILY Carvedilol (Carvedilol), 3.125 MG PO BID Clopidogrel (Plavix), 75 MG PO DAILY Coenzyme Q10 (Ubidecarenone) (Coq-10), 100 MG PO DAILY Losartan Potassium (Losartan Potassium), 25 MG PO DAILY Pravastatin Sod (Pravastatin Sodium), 10 MG PO DAILY Tiotropium [place] (Spiriva Respimat), 1 CAP INH DAILY Scheduled PRN Albuterol Sulf (Proventil 0.083% 2.5MG/3ML), 1 DOSE NEB Q6H PRN for Wheezing Nitroglycerin (Nitrostat), 0.4 MG UT PRN PRN for Chest Pain Current Inpatient Medications Current Inpatient Medications Medications (Trade) Dose Ordered Sig/Umesh Route Start Time Stop Time Status Last Admin Dose Admin Miscellaneous Information (Pharmacist Discharge Med Rec Consult) 1 ea UD PRN N/A 12/09/17 15:15 01/08/18 15:14 Sodium Chloride 1,000 ml @ 50 mls/hr Q20H IV 12/09/17 15:02 01/08/18 15:01 12/09/17 19:19 50 MLS/HR Acetaminophen (Tylenol Tab) 650 mg Q4H PRN PO 12/09/17 15:15 01/08/18 15:14 Al Hydrox/Mg Hydrox/Simethicone (Maalox Max Susp) 15 ml Q4H PRN PO 12/09/17 15:15 01/08/18 15:14 Magnesium Hydroxide (Milk Of Magnesia Susp) 30 ml Q12H PRN PO 12/09/17 15:15 01/08/18 15:14 Ondansetron HCl (Zofran Inj) 4 mg Q6H PRN IV 12/09/17 15:15 01/08/18 15:14 12/09/17 18:03 4 MG Pantoprazole Sodium 40 mg/ Syringe 10 ml @ 5 mls/min DAILY@1100 IV 12/10/17 11:00 01/09/18 10:59 Miscellaneous Information (Icu Protocol For Hyperglycemia) 1 ea PRN PRN N/A 12/09/17 15:15 12/11/17 15:14 Aspirin (Ecotrin Tab) 81 mg QAM PO 12/10/17 18:00 01/09/18 17:59 Metoprolol Tartrate (Lopressor Iv) 2.5 mg Q6 PRN IV 12/09/17 16:15 01/08/18 16:14 Hydromorphone HCl (Dilaudid Inj) 0.5 mg Q6H PRN IV 12/09/17 18:45 12/23/17 18:44 Review of Systems 12 systems reviewed and negative other than previously mentioned in the HPI. Physical Exam Date Time Temp Pulse Resp B/P (MAP) Pulse Ox O2 Delivery O2 Flow Rate FiO2 12/09/17 19:10 36.8 86 18 142/72 (95) 92 Room Air 12/09/17 18:40 36.9 96 18 136/72 (93) 97 Room Air 12/09/17 18:10 36.7 95 20 146/77 (100) 96 Room Air 12/09/17 17:40 36.6 93 18 128/66 (86) 95 Room Air 2/28/18 17:30 36.6 88 18 148/82 96 Room Air 12/09/17 17:11 89 22 136/74 12/09/17 17:10 90 23 136/74 93 Room Air 12/09/17 16:40 87 24 133/75 93 Room Air 12/09/17 16:33 89 23 141/91 93 Room Air 12/09/17 16:32 89 12/09/17 16:25 91 27 143/84 94 Room Air 12/09/17 16:10 81 23 113/46 94 Room Air 12/09/17 16:05 79/46 12/09/17 15:55 96 25 153/75 95 Room Air 12/09/17 15:40 98 23 156/91 96 Room Air 12/09/17 15:25 92 18 194/91 95 Room Air 12/09/17 15:10 90 27 176/111 96 Room Air 12/09/17 14:55 85 22 181/96 94 Room Air 12/09/17 14:40 80 22 156/110 94 Room Air 12/09/17 14:25 78 24 135/89 95 Room Air 12/09/17 14:17 79 21 137/77 95 Room Air 12/09/17 14:00 78 24 161/93 94 Room Air 12/09/17 13:54 82 24 166/80 93 Room Air 12/09/17 13:48 80 20 93 12/09/17 13:44 78 28 159/75 96 12/09/17 13:38 78 18 158/98 95 12/09/17 13:33 81 31 144/124 92 12/09/17 13:28 82 28 95 12/09/17 13:23 81 27 158/93 93 12/09/17 13:18 90 27 93 12/09/17 13:16 152/110 12/09/17 13:13 80 25 93 12/09/17 13:08 78 28 93 12/09/17 13:03 81 29 93 12/09/17 13:01 142/90 12/09/17 13:00 81 21 142/90 93 Room Air 12/09/17 12:58 85 20 94 12/09/17 12:53 83 24 92 12/09/17 12:52 165/88 12/09/17 12:50 84 31 165/88 93 Room Air 12/09/17 12:48 88 27 92 2/28/18 12:43 91 20 91 12/09/17 12:40 144/89 12/09/17 12:32 36.6 86 15 165/89 96 Room Air 12/09/17 12:31 91 12/09/17 12:30 93 Room Air Vital Signs - as noted Laboratory Data - as noted Physical Exam: General - Examined after administration of TPA, NAD Eyes - PERRL, EOMI No icterus, gaze conjugate ENT - Mucosa moist, no lesions or candidiasis, blood seen in oropharynx Neck - Supple, trachea midline, no masses or lymphadenopathy, no JVD or bruits Lungs - No paradoxical chest wall movement, clear to auscultation bilaterally, no wheezes, rales, or rhonchi Heart - Reg rate and rhythm, 2/6 Ejection murmur, No rubs, clicks, or gallops appreciated Abdomen - BS present, no bruits noted, tympanic to percussion, soft, nontender, nondistended, no organomegaly Extremities - No edema, pedal pulses intact Neuro - A&OX4 Proprioception intact, neg pronator drift Strength: Right Upper and Lower 4/5, Left Upper and Lower 5/5 Reflexes: Normal and equal Cerebellum: Finger to nose appropriate, heel to avila limited due to strength on right. CN:PERRL, EOMI, no facial asymmetry, uvula/tongue midline Laboratory Results Last 24 Hours Test 12/09/17 12:30 12/09/17 12:38 12/09/17 12:41 12/09/17 16:43 White Blood Count 7.03 K/uL Red Blood Count 4.90 M/uL Hemoglobin 14.8 g/dL Hematocrit 42.9 % Mean Corpuscular Volume 87.6 fL Mean Corpuscular Hemoglobin 30.2 pg Mean Corpuscular Hemoglobin Concent 34.5 g/dl RDW Standard Deviation 46.8 fL RDW Coefficient of Variation 14.5 % Platelet Count 149 K/uL Mean Platelet Volume 10.6 fL Prothrombin Time 10.3 SECONDS Prothromb Time International Ratio 1.0 Activated Partial Thromboplast Time 27.1 SECONDS Partial Thromboplastin Ratio 1.0 Sodium Level 138 mmol/L Potassium Level 4.2 mmol/L Chloride Level 105 mmol/L Carbon Dioxide Level 28 mmol/L Anion Gap 5.0 mmol/L 18.0 mmol/L Blood Urea Nitrogen 23 mg/dl Creatinine 1.27 mg/dl Est Creatinine Clear Calc Drug Dose 50.1 ml/min Estimated GFR () 61.0 Estimated GFR (Non- 52.6 BUN/Creatinine Ratio 18.1 Random Glucose 95 mg/dl Calcium Level 9.0 mg/dl Total Bilirubin 0.9 mg/dl Aspartate Amino Transf (AST/SGOT) 17 U/L Alanine Aminotransferase (ALT/SGPT) 45 U/L Alkaline Phosphatase 64 U/L Total Protein 7.3 gm/dl Albumin 3.5 gm/dl Globulin 3.8 gm/dl Albumin/Globulin Ratio 0.9 Bedside Hemoglobin 15.0 g/dl Bedside Hematocrit 44 % Bedside Sodium 141 mEq/L Bedside Potassium 4.3 mEq/L Bedside Chloride 102 mEq/L Bedside Total CO2 27 mEq/l Bedside Blood Urea Nitrogen 24 mg/dl Bedside Creatinine 1.4 mg/dl Bedside Glucose (other) 97 mg/dl Bedside Ionized Calcium (Best) 1.29 mmol/l Bedside Prothrombin Time INR 1.0 Diagnostic Results ULTRASOUND OF THE CAROTID ARTERIES CLINICAL HISTORY: Stroke COMPARISON STUDY: MR angiography neck dated December 02, 2017 TECHNIQUE: Real-time, grayscale, and color Doppler sonography of the carotid arteries was performed. Imaging reviewed in the transverse and longitudinal planes. NASCET criteria was utilized for stenosis calcification. FINDINGS: There is mild atherosclerotic plaque present . The peak systolic velocity within the right internal carotid artery is 76 cm/sec. The systolic velocity ratio of right internal to common carotid artery is 0.7. The peak systolic velocity within the left internal carotid artery is 77 cm/sec. The systolic velocity ratio left internal to common carotid artery is 0.8. Antegrade flow is seen in the vertebral arteries. The external carotid arteries are patent. IMPRESSION: No evidence of hemodynamically significant carotid stenosis. Electronically signed by: Ortega Nino M.D. 12/09/2017 6:48 PM Dictated Date/Time: 12/09/2017 6:47 PM HEAD WITHOUT CONTRAST (CT) CLINICAL HISTORY: 82 years-old Male presenting with headache frontal after tpa. TECHNIQUE: Multidetector CT imaging of the head was performed without the use of intravenous contrast. IV contrast: None. A dose lowering technique was used consistent with the principles of ALARA (as low as reasonably achievable). COMPARISON: 12/09/2017. CT DOSE (mGy.cm): The estimated cumulative dose is 788.63 mGycm. FINDINGS: Physical Education Aide topogram: Unremarkable. Ventricles and sulci normal in size. Brain parenchyma normal in appearance with preserved bailon-white differentiation. No mass effect or midline shift. No hemorrhage or acute territorial infarct. No extra-axial fluid collection. Air-fluid level versus mucosal thickening in the left maxillary sinus. Calvarium intact. IMPRESSION: 1. No acute intracranial abnormality. No hemorrhage. Electronically signed by: Jayson Malcolm M.D. 12/09/2017 2:21 PM Dictated Date/Time: 12/09/2017 2:16 PM ___ HEAD WITHOUT CONTRAST (CT) CLINICAL HISTORY: 82 years-old Male presenting with right sided weakness. TECHNIQUE: Multidetector CT imaging of the head was performed without the use of intravenous contrast. IV contrast: None. A dose lowering technique was used consistent with the principles of ALARA (as low as reasonably achievable). COMPARISON: 12/03/2017. CT DOSE (mGy.cm): The estimated cumulative dose is 788.63 mGycm. FINDINGS: Physical Education Aide topogram: Unremarkable. Ventricles and sulci normal in size. Brain parenchyma normal in appearance with preserved bailon-white differentiation. No mass effect or midline shift. No hemorrhage or acute territorial infarct. No extra-axial fluid collection. Air-fluid level in the left maxillary sinus. Calvarium intact. IMPRESSION: 1. No acute intracranial abnormality. 2. Air-fluid level in the left maxillary sinus suggests acute sinusitis. Electronically signed by: Jayson Malcolm M.D. 12/09/2017 12:49 PM Dictated Date/Time: 12/09/2017 12:47 PM Assessment & Plan (1) CVA (cerebral vascular accident) Reason Critically Ill: Patient is an 82-year-old male who is transferred to the ICU for sudden onset of right sided stroke like symptoms 1 week after similar episode of left sided symptoms that have since resolved with a negative MRI. Pt did undergo TPA administration with both episodes. During this administration, TPA was stopped due to extreme headache and resumed after repeat CT was negative. PLAN: Neuro: * Right sided stroke symptoms * Not completely resolved, some lingering weakness. Full sensation returned * CT negative of acute process x 2 * TPA at 1345 * MRI ordered for tonight * Neuro consulted appreciate input * Stroke versus migraine variant * Continue to allow permissive HTN, monitor on telemetry for changes. Avoid Hydralazine PRN Metoprolol SBP 175 * Continue stroke protocol, neuro checks per protocol * Pt stated Fioricet works well for pain, will attempt 1 time dose to verify. Resp: * Pt on room air with adequate saturations. * Additional O2 as needed * HOB at 30* CV: * Hx of CAD with stenting, denies chest pain * Holding home hypertensives at this time, reassess after MRI * 156/80 Currently * ECHO on 12/02/17: -- Conclusions -- * 1. Normal left ventricular size and systolic function. Estimated EF 55-60%. No visualized wall motion abnormalities, but cannot exclude wall motion abnormalities given image quality. No left ventricular hypertrophy. Type 1 diastolic dysfunction. * 2. Aortic valve sclerosis mild, without significant aortic valvular stenosis. * 3. No visualized right to left inter atrial shunt following agitated saline injection. * 4. Normal estimated right ventricular systolic pressure. * 5. Technically difficult study, somewhat enhanced with IV Definity. * 6. No significant change from prior study on 07/05/2016. * Monitor on telemetry: NSR currently Fluids/Renal: * NSS @ 50mls/hr * Cr: 1.27 at baseline * Pt voidincc over 5hrs, clear urine ID: * No indication for Abx * Afebrile, Trend fever curve GI/Nutrition: * No indication for GI Prophylaxis * Diet as tolerated * LFTs WNL Heme: * TPA at 1345 * 2u of Platelets given for epistaxis, low plts, and known plavix use * 2u PRBCs held * Trending H&H Endocrine: * Accu-Checks per protocol, started insulin infusion for 2 blood sugars greater than 180 * BS CCT: 45 Minutes; This time is exclusive of all separately billable procedures. Thank you for involving us in the care of this patient. Please refer to Dr. Shan Seymour's addendum for further recommendations. I have personally evaluated and examined this patient. I agree with assessment and plan of Jone Jesus PA-C. During my independent evaluation of the patient while in the emergency department I took over care from Dr. Albarran. The patient had his left nostril packed, he was given aliquots of Afrin into the left nare and appeared to achieve hemostasis. He was bleeding secondary to recent cauterization of his nose approximately 3 days prior to presentation for strokelike symptoms. Patient will undergo MRI testing to exclude ischemic changes. Of note the patient does have a history of migraine and these symptoms are the same as his previous stroke workup albeit on the other side. It is noted that he has had a headache associated with these events, I believe hemiplegic migraine is in the differential as well. I have personally spent 35 minutes of critical care time in the direct management of this patient. This is a life/limb threatening event. This includes time spent evaluating patient, direct bedside care, chart review, placing orders, interpretation of diagnostic studies, discussion with consultants, patient, and/or family members regarding treatment decisions, as well as other required patient management activities. This time is exclusive of all separately billable procedures, and teaching time and separate from and in addition to any other critical care service time.
[2017-12-09] MEDS ORDERED: BUTALBITAL/ACETAMIN/CAFFEINE TAB PO STA (20:42)
[2017-12-10] VITALS (46 sets, daily range): BP systolic 98–177; BP diastolic 57–98; PULSE 82–143; TEMP 36.6–37.2; O2SAT 90–100
[2017-12-10] MEDS ORDERED: GADAVIST IV PRN (01:05)
[2017-12-10] MEDS: HYDROmorphone INJ 0.5 MG/0.5 ML SYR IV PRN ×2 (01:30→12:16)
[2017-12-10] MEDS ORDERED: NURSING VERBAL MED ORDER ONE (05:45)
[2017-12-10] MEDS ORDERED: BUTALBITAL/ACETAMIN/CAFFEINE TAB PO STA (05:52)
--- NOTE | 2017-12-10 07:41 | DIAGNOSTIC IMAGING REPORT ---
BRAIN COMBO HISTORY: 82 years-old Male S/P TPA for R. Stroke Symptoms acute strokelike symptoms. History of lung cancer COMPARISON: Head CT 12/09/2017 TECHNIQUE: Multiplanar multisequence MRI of the brain was obtained both with and without the use of 9 mL Gadavist FINDINGS: No restricted diffusion to suggest acute infarction. No territorial acute infarction identified. Areas of scattered low signal on ADC and appendectomy are favored to be artifactual. Midline structures including the corpus callosum, brainstem, optic chiasm and pituitary gland appear unremarkable on the sagittal T1 series. No cerebellar tonsillar herniation. Degenerative changes are seen within the imaged cervical spine. Moderate brain atrophy. No acute intracranial hemorrhage, midline shift, abnormal extra-axial collections, hydrocephalus or intracranial mass. Scattered foci of T2/FLAIR prolongation within the subcortical and periventricular white matter suggest mild chronic microvascular ischemic changes. The major flow voids at the level of the skull base appear patent. Mastoid air cells are generally clear. Moderate left and moderate severe right mucoperiosteal thickening of the maxillary sinuses with air-fluid leveling of the right maxillary sinus. Moderate mucosal thickening of the ethmoid air cells. Scalp, calvarium and soft tissues are unremarkable. Prior bilateral cataract repair. No pathologic blooming artifact identified. There is no abnormal intra-axial or extra-axial enhancement identified. IMPRESSION: 1. No acute intracranial abnormality identified. No acute infarction or abnormal enhancement identified. 2. Atrophy with mild chronic microvascular ischemic changes. 3. Paranasal sinus disease as above. The above report was generated using voice recognition software. It may contain grammatical, syntax or spelling errors. Electronically signed by: Santos Miller M.D. 12/10/2017 7:39 AM Dictated Date/Time: 12/10/2017 7:00 AM
--- NOTE | 2017-12-10 08:29 | Critical Care Progress Note ---
Critical Care Progress Note Date of Service Dec 10, 2017. Attending Dr. Lion Kenny Agnieszka Singleton had an uneventful night. He continues to complain of intermittent headache as well as discomfort from the rhino rocket in his left nare. He request to switch to the Fioricet for pain relief. Pt had MRI last night that was unremarkable. The patient denies fever, dizziness, muscle weakness, numbness, change in vision , sore throat, chest pain, palpitations, awareness of tachyarrhythmias, leg swelling, shortness of breath, cough, nausea, vomiting, bloody stools, diarrhea , constipation, abdominal pain, other changes in urine or bowel habits. Objective Vital Signs - as noted Laboratory Data - as noted Physical Exam: General - NAD Eyes - PERRL, EOMI No icterus, gaze conjugate ENT - Mucosa moist, no lesions or candidiasis Neck - Supple, trachea midline, no masses or lymphadenopathy, no JVD or bruits Lungs - No paradoxical chest wall movement, clear to auscultation bilaterally, no wheezes, rales, or rhonchi Heart - Sinus Tach, Soft 2/6 systolic murmur No rubs, clicks, or gallops appreciated Abdomen - BS present, no bruits noted, tympanic to percussion, soft, nontender, nondistended, no organomegaly Extremities - No edema, pedal pulses intact Neuro - A&OX4 Proprioception intact, neg pronator drift Strength extremities equal and appropriate bilaterally; weakness resolved Reflexes: Bicep, brachioradialis, patellar, and plantar normal and equal Cerebellum: Finger to nose appropriate CN:PERRL, EOMI, no facial asymmetry, uvula/tongue midline Assessment & Plan (1) CVA (cerebral vascular accident) Reason Critically Ill: Patient is an 82-year-old male who is transferred to the ICU for sudden onset of right sided stroke like symptoms 1 week after similar episode of left sided symptoms that have since resolved with a negative MRI. Pt did undergo TPA administration with both episodes. During this administration, TPA was stopped due to extreme headache and resumed after repeat CT was negative. PLAN: Neuro: * Right sided stroke symptoms * Completely resolved * CT negative of acute process x 2; MRI unremarkable no infarct noted * TPA at 1345 * Neuro consulted appreciate input * Stroke versus migraine variant * Begin Day 2 stroke protocol * Cancel Tylenol order and replace with PRN Fioricet Resp: * Pt on room air with adequate saturations. * Additional O2 as needed * HOB at 30* * Pt was being weaned off albuterol nebulizer treatment by mmi teacher per family * Should have 5 days of treatment with Duoneb TID this week CV: * Hx of CAD with stenting, denies chest pain * Begin home medications * ECHO on 12/02/17: -- Conclusions -- * 1. Normal left ventricular size and systolic function. Estimated EF 55-60%. No visualized wall motion abnormalities, but cannot exclude wall motion abnormalities given image quality. No left ventricular hypertrophy. Type 1 diastolic dysfunction. * 2. Aortic valve sclerosis mild, without significant aortic valvular stenosis. * 3. No visualized right to left inter atrial shunt following agitated saline injection. * 4. Normal estimated right ventricular systolic pressure. * 5. Technically difficult study, somewhat enhanced with IV Definity. * 6. No significant change from prior study on 07/05/2016. * Monitor on telemetry: Sinus tach currently Fluids/Renal: * Continue NSS @ 50mls/hr * Cr: 1.27 at baseline * No repeat labs during first 24hrs of TPA Administration * Pt voiding ID: * No indication for Abx * Afebrile, Trend fever curve GI/Nutrition: * No indication for GI Prophylaxis * Diet as tolerated * Check LFTs after 24hr marker Heme: * TPA at 1345 * 2u of Platelets given for epistaxis, low plts, and known plavix use * 2u PRBCs held * Recheck H&H at 1345 * Continue bleeding in oropharynx, appears to be decreasing Endocrine: * Accu-Checks per protocol, started insulin infusion for 2 blood sugars greater than 180 I have personally evaluated and examined this patient. I agree with assessment and plan of Jone Jesus PA-C. I discussed the case with Dr. Hensley of neurology. Recommend starting calcium channel gene for probable vasospasm. This not consistent with acute embolic CVA phenomenon. This could possibly be related to Afrin nasal spray administration as well. Data Medications: Current Inpatient Medications Medications (Trade) Dose Ordered Sig/Umesh Route Start Time Stop Time Status Last Admin Dose Admin Miscellaneous Information (Pharmacist Discharge Med Rec Consult) 1 ea UD PRN N/A 12/09/17 15:15 01/08/18 15:14 Sodium Chloride 1,000 ml @ 50 mls/hr Q20H IV 12/09/17 15:02 01/08/18 15:01 12/09/17 19:19 50 MLS/HR Acetaminophen (Tylenol Tab) 650 mg Q4H PRN PO 12/09/17 15:15 01/08/18 15:14 12/10/17 04:26 650 MG Al Hydrox/Mg Hydrox/Simethicone (Maalox Max Susp) 15 ml Q4H PRN PO 12/09/17 15:15 01/08/18 15:14 Magnesium Hydroxide (Milk Of Magnesia Susp) 30 ml Q12H PRN PO 12/09/17 15:15 01/08/18 15:14 Ondansetron HCl (Zofran Inj) 4 mg Q6H PRN IV 12/09/17 15:15 01/08/18 15:14 12/09/17 18:03 4 MG Pantoprazole Sodium 40 mg/ Syringe 10 ml @ 5 mls/min DAILY@1100 IV 12/10/17 11:00 01/09/18 10:59 Miscellaneous Information (Icu Protocol For Hyperglycemia) 1 ea PRN PRN N/A 12/09/17 15:15 12/11/17 15:14 Aspirin (Ecotrin Tab) 81 mg QAM PO 12/10/17 18:00 01/09/18 17:59 Metoprolol Tartrate (Lopressor Iv) 2.5 mg Q6 PRN IV 12/09/17 16:15 01/08/18 16:14 Hydromorphone HCl (Dilaudid Inj) 0.5 mg Q6H PRN IV 12/09/17 18:45 12/23/17 18:44 12/10/17 01:30 0.5 MG Gadobutrol (Gadavist) 9 mmol UD PRN IV 12/10/17 01:05 12/14/17 01:04 Vital Signs: Date Time Temp Pulse Resp B/P (MAP) Pulse Ox O2 Delivery O2 Flow Rate FiO2 12/10/17 07:30 95 21 95 12/10/17 07:15 87 13 95 12/10/17 07:01 36.8 87 20 136/70 (92) 99 Nasal Cannula 2.0 12/10/17 07:01 87 15 136/70 (104) 95 12/10/17 07:00 86 16 94 12/10/17 06:45 88 16 94 12/10/17 06:30 85 22 97 12/10/17 06:15 91 19 98 12/10/17 06:10 92 18 159/94 (115) 94 Nasal Cannula 2.0 12/10/17 06:01 90 15 159/94 (102) 95 12/10/17 06:00 92 17 96 12/10/17 05:45 89 0 97 12/10/17 05:34 93 21 171/94 (117) 98 12/10/17 05:30 95 18 171/94 (119) 98 Nasal Cannula 2.0 12/10/17 05:30 95 18 171/94 (119) 98 Nasal Cannula 2.0 12/10/17 05:30 88 20 97 12/10/17 05:15 87 14 96 12/10/17 05:00 87 13 97 12/10/17 04:45 89 18 96 12/10/17 04:30 85 0 98 12/10/17 04:15 95 21 97 12/10/17 04:10 36.7 88 14 177/96 (123) 97 Nasal Cannula 2.0 12/10/17 04:10 95 Nasal Cannula 2.0 12/10/17 04:01 90 11 177/96 (124) 97 12/10/17 04:00 89 14 97 12/10/17 03:10 86 16 174/98 (123) 96 12/10/17 02:00 86 14 168/91 (116) 95 Nasal Cannula 2.0 12/10/17 01:20 85 18 131/81 (98) 92 Room Air 12/10/17 00:00 95 Room Air 12/10/17 00:00 88 16 167/89 (115) 95 Room Air 12/09/17 23:10 36.4 88 16 142/84 (103) 93 Room Air 12/09/17 22:10 36.9 85 18 156/80 (105) 92 Room Air 12/09/17 21:40 36.8 86 16 138/74 (95) 93 Room Air 12/09/17 21:10 36.7 94 16 146/74 (98) 94 Room Air 12/09/17 20:40 36.8 88 18 141/71 (94) 93 Room Air 12/09/17 20:10 36.9 94 18 143/70 (94) 93 Room Air 12/09/17 20:00 93 Room Air 12/09/17 19:40 36.8 85 18 140/72 (94) 93 Room Air 12/09/17 19:10 36.8 86 18 142/72 (95) 92 Room Air 12/09/17 18:40 36.9 96 18 136/72 (93) 97 Room Air 12/09/17 18:10 36.7 95 20 146/77 (100) 96 Room Air 12/09/17 17:40 36.6 93 18 128/66 (86) 95 Room Air 12/09/17 17:30 36.6 88 18 148/82 96 Room Air 12/09/17 17:11 89 22 136/74 12/09/17 17:10 90 23 136/74 93 Room Air 12/09/17 16:40 87 24 133/75 93 Room Air 12/09/17 16:33 89 23 141/91 93 Room Air 12/09/17 16:32 89 12/09/17 16:25 91 27 143/84 94 Room Air 12/09/17 16:10 81 23 113/46 94 Room Air 12/09/17 16:05 79/46 12/09/17 15:55 96 25 153/75 95 Room Air 12/09/17 15:40 98 23 156/91 96 Room Air 12/09/17 15:25 92 18 194/91 95 Room Air 12/09/17 15:10 90 27 176/111 96 Room Air 12/09/17 14:55 85 22 181/96 94 Room Air 12/09/17 14:40 80 22 156/110 94 Room Air 12/09/17 14:25 78 24 135/89 95 Room Air 12/09/17 14:17 79 21 137/77 95 Room Air 12/09/17 14:00 78 24 161/93 94 Room Air 12/09/17 13:54 82 24 166/80 93 Room Air 12/09/17 13:48 80 20 93 12/09/17 13:44 78 28 159/75 96 12/09/17 13:38 78 18 158/98 95 12/09/17 13:33 81 31 144/124 92 12/09/17 13:28 82 28 95 12/09/17 13:23 81 27 158/93 93 12/09/17 13:18 90 27 93 12/09/17 13:16 152/110 12/09/17 13:13 80 25 93 12/09/17 13:08 78 28 93 12/09/17 13:03 81 29 93 12/09/17 13:01 142/90 12/09/17 13:00 81 21 142/90 93 Room Air 12/09/17 12:58 85 20 94 12/09/17 12:53 83 24 92 12/09/17 12:52 165/88 12/09/17 12:50 84 31 165/88 93 Room Air 12/09/17 12:48 88 27 92 12/09/17 12:43 91 20 91 12/09/17 12:40 144/89 12/09/17 12:32 36.6 86 15 165/89 96 Room Air 12/09/17 12:31 91 12/09/17 12:30 93 Room Air Laboratory Results: Last 24 Hours Test 12/09/17 12:30 12/09/17 12:38 12/09/17 12:41 12/09/17 21:02 White Blood Count 7.03 K/uL Red Blood Count 4.90 M/uL Hemoglobin 14.8 g/dL Hematocrit 42.9 % Mean Corpuscular Volume 87.6 fL Mean Corpuscular Hemoglobin 30.2 pg Mean Corpuscular Hemoglobin Concent 34.5 g/dl RDW Standard Deviation 46.8 fL RDW Coefficient of Variation 14.5 % Platelet Count 149 K/uL Mean Platelet Volume 10.6 fL Prothrombin Time 10.3 SECONDS Prothromb Time International Ratio 1.0 Activated Partial Thromboplast Time 27.1 SECONDS Partial Thromboplastin Ratio 1.0 Sodium Level 138 mmol/L Potassium Level 4.2 mmol/L Chloride Level 105 mmol/L Carbon Dioxide Level 28 mmol/L Anion Gap 5.0 mmol/L 18.0 mmol/L Blood Urea Nitrogen 23 mg/dl Creatinine 1.27 mg/dl Est Creatinine Clear Calc Drug Dose 50.1 ml/min Estimated GFR () 61.0 Estimated GFR (Non- 52.6 BUN/Creatinine Ratio 18.1 Random Glucose 95 mg/dl Calcium Level 9.0 mg/dl Total Bilirubin 0.9 mg/dl Aspartate Amino Transf (AST/SGOT) 17 U/L Alanine Aminotransferase (ALT/SGPT) 45 U/L Alkaline Phosphatase 64 U/L Total Protein 7.3 gm/dl Albumin 3.5 gm/dl Globulin 3.8 gm/dl Albumin/Globulin Ratio 0.9 Bedside Hemoglobin 15.0 g/dl Bedside Hematocrit 44 % Bedside Sodium 141 mEq/L Bedside Potassium 4.3 mEq/L Bedside Chloride 102 mEq/L Bedside Total CO2 27 mEq/l Bedside Blood Urea Nitrogen 24 mg/dl Bedside Creatinine 1.4 mg/dl Bedside Glucose (other) 97 mg/dl Bedside Ionized Calcium (Best) 1.29 mmol/l Bedside Prothrombin Time INR 1.0 Test 12/10/17 06:04 Bedside Glucose 108 mg/dl
--- NOTE | 2017-12-10 09:16 | Neurology Consultation ---
Neurology Consultation Date of Consultation: Dec 10, 2017. Attending Physician: Robin Kang MD Primary Care Physician: Daryn Pettit M.D. Reason for Consultation: Stroke like symptoms , Post TPA History of Present Illness Source: patient, family 82-year-old male with past medical history of hyperlipidemia, hypertension, coronary artery disease status post STEMI/PCI 4, COPD/emphysema, lung cancer status post resection in 1998, migraines presented to the ER with complaints of right-sided weakness and numbness that started about 30 minutes prior to arrival. The patient stated that he was at a grocery store with his and noticed numbness in the right foot, going up his right lower extremity and right upper extremity . He did not have a right facial droop. He also stated that he was dizzy for about half a minute but denied any slurring of speech, blurry vision or diplopia. He denied any chest pain, palpitations prior to his right-sided numbness and weakness. He also stated that he did not have a headache at that time. He presented to the ER and a stroke alert was called and he was given TPA after a normal head CT. During infusion of TPA he developed a headache and a repeat CT scan was obtained which was negative for any intracranial bleed and the infusion was completed. He developed nasal bleeding from his left nasal cavity and a Rhino Rocket was placed to control the bleeding along with afrin spray. He was also found to be hypertensive with systolic blood pressure greater than 185 and was given 15 mg of IV hydralazine which dropped his blood pressure down to 70 systolic, he was then given a bolus of normal saline which improved his blood pressure to about 135 systolic. He also received 2 units of platelets for the epistaxis. The patient was admitted at [facility] from 12/02/17 through for left-sided weakness and had received TPA at that visit too. His MRI was unremarkable and MRA reveals 2 tiny aneurysms for which he was recommended to follow-up in 6 months. He was started on pravastatin 10 mg daily. He stated that during his last admission he had left-sided weakness which started from his face and expanded downwards to involve his left upper and lower extremity. He also had a headache on the left side at that time. He has a history of coronary artery disease and is currently on dual antiplatelet therapy with aspirin and Plavix and uses losartan for hypertension. He recently had a 30 day event monitor ordered by cardiology. The patient also has a history of migraine headaches which started at about age 51 and he typically gets about 2-3 episodes per month, he states that his headaches usually are in the mid forehead radiating back to his occipital area with no known triggers.They typically last for a few hours and are associated with nausea and vomiting. He also has photophobia and phonophobia. He usually uses Tylenol or Ultram for the migraines. He states that he is never experienced any numbness, tingling prior to the headache before. He has had epistaxis which first started in September 2017 and recurred about 2 weeks ago when he was given afrin . He had used afrin a day prior to his first admission while at home which controlled his small epistaxis. while in the ER , he had another episode of epistaxis after receiving TPA on 12/02 . He had a nasal packing and he had followed up with ENT upon discharge and had cauterization performed. He did not use any Afrin after discharge. He had followed up with ENT prior to developing his stroke like symptoms yesterday. Currently he states that his right sided weakness and numbness has resolved. he noticed the improvement around midnight yesterday . He denies any dysarthria or blurry vision. He however complains of a headache on the left maxillary area and forehead which is achy and sometimes sharp. Past Medical/Surgical History Medical Problems: (1) Acute electrocardiogram changes Status: Acute (2) Anterior epistaxis Status: Acute (3) CVA (cerebral vascular accident) Status: Acute (4) CVA (cerebral vascular accident) Status: Acute (5) Dizzy Status: Acute (6) Headache Status: Acute (7) Left sided chest pain Status: Acute (8) Left-sided weakness Status: Acute (9) Precordial chest pain Status: Acute (10) Substernal chest pain Status: Acute (11) Substernal chest pain Status: Acute Family History Father: coronary artery disease Mother: stroke Sibling(s): pertinent history of (migraine) Social History Smoking Status: Former smoker Alcohol Use: quit 30 years ago Drug Use: none Marital Status: Housing Status: lives with family, unknown Occupation Status: retired Allergies Coded Allergies: Atorvastatin (Unverified Allergy, Unknown, ., 12/02/17) Cephalosporins (Verified Allergy, Unknown, 12/02/17) Fluticasone (Unverified Allergy, Unknown, ., 12/02/17) Fluvastatin (Unverified Allergy, Unknown, ., 12/02/17) Iodinated Diagnostic Agents (Verified Allergy, Unknown, `, 12/09/17) Lisinopril (Unverified Allergy, Unknown, ., 12/02/17) Oxycodone (Verified Allergy, Unknown, HIVES, 12/02/17) ABLE TO TAKE TYLENOL Penicillins (Verified Allergy, Unknown, 12/09/17) Rosuvastatin (Unverified Allergy, Unknown, ., 12/02/17) Salmeterol (Unverified Allergy, Unknown, ., 12/02/17) Current Inpatient Medications Current Inpatient Medications Medications (Trade) Dose Ordered Sig/Umesh Route Start Time Stop Time Status Last Admin Dose Admin Miscellaneous Information (Pharmacist Discharge Med Rec Consult) 1 ea UD PRN N/A 12/09/17 15:15 01/08/18 15:14 Sodium Chloride 1,000 ml @ 50 mls/hr Q20H IV 12/09/17 15:02 01/08/18 15:01 12/09/17 19:19 50 MLS/HR Al Hydrox/Mg Hydrox/Simethicone (Maalox Max Susp) 15 ml Q4H PRN PO 12/09/17 15:15 01/08/18 15:14 Magnesium Hydroxide (Milk Of Magnesia Susp) 30 ml Q12H PRN PO 12/09/17 15:15 01/08/18 15:14 Ondansetron HCl (Zofran Inj) 4 mg Q6H PRN IV 12/09/17 15:15 01/08/18 15:14 12/09/17 18:03 4 MG Pantoprazole Sodium 40 mg/ Syringe 10 ml @ 5 mls/min DAILY@1100 IV 12/10/17 11:00 01/09/18 10:59 Miscellaneous Information (Icu Protocol For Hyperglycemia) 1 ea PRN PRN N/A 12/09/17 15:15 12/11/17 15:14 Aspirin (Ecotrin Tab) 81 mg QAM PO 12/10/17 18:00 01/09/18 17:59 Metoprolol Tartrate (Lopressor Iv) 2.5 mg Q6 PRN IV 12/09/17 16:15 01/08/18 16:14 Hydromorphone HCl (Dilaudid Inj) 0.5 mg Q6H PRN IV 12/09/17 18:45 12/23/17 18:44 12/10/17 01:30 0.5 MG Gadobutrol (Gadavist) 9 mmol UD PRN IV 12/10/17 01:05 12/14/17 01:04 Acetaminophen/ Butalbital/ Caffeine (Fioricet Tab) 2 tab Q4H PRN PO 12/10/17 08:45 01/09/18 08:44 Carvedilol (Coreg Tab) 3.125 mg BID PO 12/10/17 09:00 01/09/18 08:59 Losartan Potassium (coZAAR TAB) 25 mg DAILY PO 12/10/17 09:00 01/09/18 08:59 Pravastatin Sodium (Pravachol Tab) 10 mg DAILY PO 12/10/17 09:00 01/09/18 08:59 Miscellaneous Information (Order Awaiting Action) 1 ea QS N/A 12/10/17 16:00 01/09/18 15:59 Albuterol/ Ipratropium (Duoneb) 3 ml TIDR INH 12/10/17 09:00 01/09/18 08:59 Review of Systems Constitutional: No fever, No chills Eyes: No worsening of vision ENT: + problem reported (epistaxis- resolved, has rhino rocket in place), No hearing loss Abdomen: No pain, No nausea, No vomiting Neurologic: + weakness (right sided weakness , numbness and tingling which is now resolved) Physical Exam Vital Signs (Past 24 Hrs): Date Time Temp Pulse Resp B/P (MAP) Pulse Ox O2 Delivery O2 Flow Rate FiO2 12/10/17 08:01 36.6 92 18 125/64 (84) 93 Room Air 2.0 12/10/17 08:00 36.6 92 18 125/64 (84) 93 Room Air 12/10/17 08:00 36.6 92 18 125/64 (84) 93 Room Air 2.0 12/10/17 08:00 93 Room Air 12/10/17 08:00 36.6 95 18 125/64 (84) 93 Room Air 12/10/17 07:30 95 21 95 12/10/17 07:15 87 13 95 12/10/17 07:10 36.6 87 18 136/70 (92) 97 Room Air 12/10/17 07:01 36.8 87 20 136/70 (92) 99 Nasal Cannula 2.0 12/10/17 07:01 87 15 136/70 (104) 95 12/10/17 07:00 86 16 94 12/10/17 06:45 88 16 94 12/10/17 06:30 85 22 97 12/10/17 06:15 91 19 98 12/10/17 06:10 92 18 159/94 (115) 94 Nasal Cannula 2.0 12/10/17 06:01 90 15 159/94 (102) 95 12/10/17 06:00 92 17 96 12/10/17 05:45 89 0 97 12/10/17 05:34 93 21 171/94 (117) 98 12/10/17 05:30 95 18 171/94 (119) 98 Nasal Cannula 2.0 12/10/17 05:30 95 18 171/94 (119) 98 Nasal Cannula 2.0 12/10/17 05:30 88 20 97 12/10/17 05:15 87 14 96 12/10/17 05:00 87 13 97 12/10/17 04:45 89 18 96 12/10/17 04:30 85 0 98 12/10/17 04:15 95 21 97 12/10/17 04:10 36.7 88 14 177/96 (123) 97 Nasal Cannula 2.0 12/10/17 04:10 95 Nasal Cannula 2.0 12/10/17 04:01 90 11 177/96 (124) 97 12/10/17 04:00 89 14 97 12/10/17 03:10 86 16 174/98 (123) 96 12/10/17 02:00 86 14 168/91 (116) 95 Nasal Cannula 2.0 12/10/17 01:20 85 18 131/81 (98) 92 Room Air 12/10/17 00:00 95 Room Air 12/10/17 00:00 88 16 167/89 (115) 95 Room Air 12/09/17 23:10 36.4 88 16 142/84 (103) 93 Room Air 12/09/17 22:10 36.9 85 18 156/80 (105) 92 Room Air 12/09/17 21:40 36.8 86 16 138/74 (95) 93 Room Air 12/09/17 21:10 36.7 94 16 146/74 (98) 94 Room Air 12/09/17 20:40 36.8 88 18 141/71 (94) 93 Room Air 12/09/17 20:10 36.9 94 18 143/70 (94) 93 Room Air 12/09/17 20:00 93 Room Air 12/09/17 19:40 36.8 85 18 140/72 (94) 93 Room Air 12/09/17 19:10 36.8 86 18 142/72 (95) 92 Room Air 12/09/17 18:40 36.9 96 18 136/72 (93) 97 Room Air 12/09/17 18:10 36.7 95 20 146/77 (100) 96 Room Air 12/09/17 17:40 36.6 93 18 128/66 (86) 95 Room Air 12/09/17 17:30 36.6 88 18 148/82 96 Room Air 12/09/17 17:11 89 22 136/74 12/09/17 17:10 90 23 136/74 93 Room Air 12/09/17 16:40 87 24 133/75 93 Room Air 12/09/17 16:33 89 23 141/91 93 Room Air 12/09/17 16:32 89 12/09/17 16:25 91 27 143/84 94 Room Air 12/09/17 16:10 81 23 113/46 94 Room Air 12/09/17 16:05 79/46 12/09/17 15:55 96 25 153/75 95 Room Air 12/09/17 15:40 98 23 156/91 96 Room Air 12/09/17 15:25 92 18 194/91 95 Room Air 12/09/17 15:10 90 27 176/111 96 Room Air 12/09/17 14:55 85 22 181/96 94 Room Air 12/09/17 14:40 80 22 156/110 94 Room Air 12/09/17 14:25 78 24 135/89 95 Room Air 12/09/17 14:17 79 21 137/77 95 Room Air 12/09/17 14:00 78 24 161/93 94 Room Air 12/09/17 13:54 82 24 166/80 93 Room Air 12/09/17 13:48 80 20 93 12/09/17 13:44 78 28 159/75 96 12/09/17 13:38 78 18 158/98 95 12/09/17 13:33 81 31 144/124 92 12/09/17 13:28 82 28 95 12/09/17 13:23 81 27 158/93 93 12/09/17 13:18 90 27 93 12/09/17 13:16 152/110 12/09/17 13:13 80 25 93 12/09/17 13:08 78 28 93 12/09/17 13:03 81 29 93 12/09/17 13:01 142/90 12/09/17 13:00 81 21 142/90 93 Room Air 12/09/17 12:58 85 20 94 12/09/17 12:53 83 24 92 12/09/17 12:52 165/88 12/09/17 12:50 84 31 165/88 93 Room Air 12/09/17 12:48 88 27 92 12/09/17 12:43 91 20 91 12/09/17 12:40 144/89 12/09/17 12:32 36.6 86 15 165/89 96 Room Air 12/09/17 12:31 91 12/09/17 12:30 93 Room Air GENERAL: Patient is in no acute distress. HEENT: No acute trauma, normocephalic atraumatic, mucous membranes moist, PEERLA , optic discs sharp, rhinorocket in left nasal cavity NECK: No stridor, no adenopathy, no meningismus, trachea is midline. LUNGS: No respiratory distress but has scattered wheezing, no wheeze, no rhonchi , breath sounds equal. HEART: systolic murmur, regular rate and rhythm. ABDOMEN: Soft, nontender, bowel sounds positive. EXTREMITIES: No cyanosis or edema, full range of motion of all the joints without pain or difficulty, no signs for acute trauma. NEUROLOGIC: Oriented x 3, no acute motor or sensory deficits, no focal weakness. CN II -XII intact, no pronator drift, No dysdiachokinesis SKIN: No rash, no jaundice, no diaphoresis. Laboratory Results Past 24 Hours: 12/09/17 12:30 12/09/17 12:30 Test 12/09/17 12:30 12/09/17 12:38 12/09/17 12:41 12/10/17 06:04 Red Blood Count 4.90 M/uL (4.7-6.1) Mean Corpuscular Volume 87.6 fL (80-100) Mean Corpuscular Hemoglobin 30.2 pg (25-34) Mean Corpuscular Hemoglobin Concent 34.5 g/dl (32-36) RDW Standard Deviation 46.8 fL (36.4-46.3) RDW Coefficient of Variation 14.5 % (11.5-14.5) Mean Platelet Volume 10.6 fL (7.4-10.4) Prothrombin Time 10.3 SECONDS (9.0-12.0) Prothromb Time International Ratio 1.0 (0.9-1.1) Activated Partial Thromboplast Time 27.1 SECONDS (21.0-31.0) Partial Thromboplastin Ratio 1.0 Est Creatinine Clear Calc Drug Dose 50.1 ml/min Estimated GFR () 61.0 Estimated GFR (Non- 52.6 BUN/Creatinine Ratio 18.1 (10-20) Calcium Level 9.0 mg/dl (8.5-10.1) Total Bilirubin 0.9 mg/dl (0.2-1) Aspartate Amino Transf (AST/SGOT) 17 U/L (15-37) Alanine Aminotransferase (ALT/SGPT) 45 U/L (12-78) Alkaline Phosphatase 64 U/L (45-117) Total Protein 7.3 gm/dl (6.4-8.2) Albumin 3.5 gm/dl (3.4-5.0) Globulin 3.8 gm/dl (2.5-4.0) Albumin/Globulin Ratio 0.9 (0.9-2) Bedside Hemoglobin 15.0 g/dl (14.0-18.0) Bedside Hematocrit 44 % (42-52) Bedside Sodium 141 mEq/L (135-144) Bedside Potassium 4.3 mEq/L (3.3-5.0) Bedside Chloride 102 mEq/L (101-112) Bedside Total CO2 27 mEq/l (24-31) Anion Gap 18.0 mmol/L (16-25) Bedside Blood Urea Nitrogen 24 mg/dl (7-18) Bedside Creatinine 1.4 mg/dl (0.6-1.3) Bedside Glucose (other) 97 mg/dl (70-99) Bedside Ionized Calcium (Best) 1.29 mmol/l (1.12-1.32) Bedside Prothrombin Time INR 1.0 (0.9-1.1) Bedside Glucose 108 mg/dl (70-99) Date/Time Source Procedure Growth Status 12/09/17 17:35 Nasal MRSA DNA Surveillance Screen - Final Specimen Negative for MRSA by DNA Probe Complete Imaging [~ rep ct add3]] HEAD WITHOUT CONTRAST (CT) CLINICAL HISTORY: 82 years-old Male presenting with right sided weakness. TECHNIQUE: Multidetector CT imaging of the head was performed without the use of intravenous contrast. IV contrast: None. A dose lowering technique was used consistent with the principles of ALARA (as low as reasonably achievable). COMPARISON: 12/03/2017. CT DOSE (mGy.cm): The estimated cumulative dose is 788.63 mGycm. FINDINGS: Straw Baler topogram: Unremarkable. Ventricles and sulci normal in size. Brain parenchyma normal in appearance with preserved bailon-white differentiation. No mass effect or midline shift. No hemorrhage or acute territorial infarct. No extra-axial fluid collection. Air-fluid level in the left maxillary sinus. Calvarium intact. IMPRESSION: 1. No acute intracranial abnormality. 2. Air-fluid level in the left maxillary sinus suggests acute sinusitis. Electronically signed by: Jayson Malcolm M.D. 12/09/2017 12:49 PM Dictated Date/Time: 12/09/2017 12:47 PM [~ rep ct add3]] HEAD WITHOUT CONTRAST (CT) CLINICAL HISTORY: 82 years-old Male presenting with headache frontal after tpa. TECHNIQUE: Multidetector CT imaging of the head was performed without the use of intravenous contrast. IV contrast: None. A dose lowering technique was used consistent with the principles of ALARA (as low as reasonably achievable). COMPARISON: 12/09/2017. CT DOSE (mGy.cm): The estimated cumulative dose is 788.63 mGycm. FINDINGS: Straw Baler topogram: Unremarkable. Ventricles and sulci normal in size. Brain parenchyma normal in appearance with preserved bailon-white differentiation. No mass effect or midline shift. No hemorrhage or acute territorial infarct. No extra-axial fluid collection. Air-fluid level versus mucosal thickening in the left maxillary sinus. Calvarium intact. IMPRESSION: 1. No acute intracranial abnormality. No hemorrhage. Electronically signed by: Jayson Malcolm M.D. 12/09/2017 2:21 PM Dictated Date/Time: 12/09/2017 2:16 PM [~ rep ct add3]] ULTRASOUND OF THE CAROTID ARTERIES CLINICAL HISTORY: Stroke COMPARISON STUDY: MR angiography neck dated December 02, 2017 TECHNIQUE: Real-time, grayscale, and color Doppler sonography of the carotid arteries was performed. Imaging reviewed in the transverse and longitudinal planes. NASCET criteria was utilized for stenosis calcification. FINDINGS: There is mild atherosclerotic plaque present . The peak systolic velocity within the right internal carotid artery is 76 cm/sec. The systolic velocity ratio of right internal to common carotid artery is 0.7. The peak systolic velocity within the left internal carotid artery is 77 cm/sec. The systolic velocity ratio left internal to common carotid artery is 0.8. Antegrade flow is seen in the vertebral arteries. The external carotid arteries are patent. IMPRESSION: No evidence of hemodynamically significant carotid stenosis. Electronically signed by: Ortega Nino M.D. 12/09/2017 6:48 PM [~ rep ct add3]] BRAIN COMBO HISTORY: 82 years-old Male S/P TPA for R. Stroke Symptoms acute strokelike symptoms. History of lung cancer COMPARISON: Head CT 12/09/2017 TECHNIQUE: Multiplanar multisequence MRI of the brain was obtained both with and without the use of 9 mL Gadavist FINDINGS: No restricted diffusion to suggest acute infarction. No territorial acute infarction identified. Areas of scattered low signal on ADC and appendectomy are favored to be artifactual. Midline structures including the corpus callosum, brainstem, optic chiasm and pituitary gland appear unremarkable on the sagittal T1 series. No cerebellar tonsillar herniation. Degenerative changes are seen within the imaged cervical spine. Moderate brain atrophy. No acute intracranial hemorrhage, midline shift, abnormal extra-axial collections, hydrocephalus or intracranial mass. Scattered foci of T2/FLAIR prolongation within the subcortical and periventricular white matter suggest mild chronic microvascular ischemic changes. The major flow voids at the level of the skull base appear patent. Mastoid air cells are generally clear. Moderate left and moderate severe right mucoperiosteal thickening of the maxillary sinuses with air-fluid leveling of the right maxillary sinus. Moderate mucosal thickening of the ethmoid air cells. Scalp, calvarium and soft tissues are unremarkable. Prior bilateral cataract repair. No pathologic blooming artifact identified. There is no abnormal intra-axial or extra-axial enhancement identified. IMPRESSION: 1. No acute intracranial abnormality identified. No acute infarction or abnormal enhancement identified. 2. Atrophy with mild chronic microvascular ischemic changes. 3. Paranasal sinus disease as above. The above report was generated using voice recognition software. It may contain grammatical, syntax or spelling errors. Electronically signed by: Santos Miller M.D. 12/10/2017 7:39 AM Dictated Date/Time: 12/10/2017 7:00 AM Impression 82-year-old male with past medical history of hyperlipidemia, hypertension, coronary artery disease status post STEMI/PCI 4, COPD/emphysema, lung cancer status post resection in 1998, migraines presented to the ER with complaints of right-sided weakness and numbness that started about 30 minutes prior to arrival. Status post TPA at 1345 yesterday(12/09). Had received 15 mg IV hydralazine for systolic blood pressure greater than 185 which had dropped his blood pressure to 70 and received a bolus. He had left nasal bleeding and has a Rhino Rocket in place. He was admitted at [facility] on 12/02 for left-sided weakness and had received TPA. He was discharged after his MRI was unremarkable. Plan Stroke versus complex migraine: It is likely this right-sided weakness and numbness secondary to a migraine aura and had preceded his headache. During his last admission when he had presented with left-sided weakness, he was accompanied by headache too . He does have a history of migraine headaches and usually uses Tylenol/Ultram for pain control . - NIHSS 0 - Head CT 2 negative , MRI brain is unremarkable, ultrasound carotid unremarkable - Continue aspirin and Plavix(restart 24 hours after TPA) - Continue statin therapy with pravastatin 10 mg daily - May start verapamil 180 mg SR daily in AM for migraines and controlling blood pressure. Check with cardiology about continuing his losartan. Attending note: I reviewed the resident's note and agree with her impression and plan. He has a history of migraine headaches about once every 2-3 months, without aura , since age 51. They have no triggers and they are associated with nausea vomiting and photophobia. There are left-sided significant pain. This patient has had some nose bleeds issues over the last couple of months. He has already been on aspirin and Plavix chronically for his cardiac condition. On the evening of December 01, he took Afrin for nose bleeds. The next morning on December 02, after waking up, he had the 30 minutes gradual progression of left-sided weakness and numbness starting in the face then moving to the arm, and then moving to the leg. He had some vague headache and pressure on the left side of his head. He came to the emergency room where a CT scan of the head was unremarkable and he was given tPA. He had left epistaxis again. The left-sided weakness and numbness improved since a little bit with the tPA but really took the next 68 hours to resolve. He had no further issues. MRI of the brain was unremarkable for stroke. He had minimal small vessel ischemic disease. MR angiography of the head and neck were unremarkable with no significant stenosis. There were 2 incidental, 2 millimeter aneurysms noted. Echocardiogram was unremarkable for a shunt or source of embolus. He was discharged without symptoms. On December 09, he was shopping when he had the sudden onset of right foot numbness and weakness which gradually came up the right leg and involved the right arm as well. There was some numbness of the face but no facial weakness. This took 15 minutes to get from the initial foot numbness to the maximum on the right side. He again came to the emergency room and ended up getting tPA with the ate epistaxis episode again. He had some headache after tPA this 2nd time. It took another 6-8 hours before his right-sided symptoms resolved. MRI of the brain again was unremarkable without stroke or hemorrhage. This morning he feels back to baseline with no pain, weakness, or numbness in the limbs. He has good speech and swallowing and no vision problems. He does have a left-sided headache including the face and forehead. On neurologic examination he has no cranial nerve deficits, weakness of the limbs, numbness of the limbs or abnormal involuntary movements. He has no drift or clumsiness. His NIH stroke scale was 0. 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 He is history is not compatible with embolic stroke. He has no signs of stroke or cerebral vascular disease by MRI or MR angiography. I do not believe this represents ischemic vascular disease. He does have a history of hypertension I recommend verapamil 180 milligram SR once daily. Consider avoiding Afrin as this may be contributing to vasospasm. We can follow as an outpatient. I spent a total of 105 minutes with this case discussing the case with Dr. Seymour, the patient's care team, the patient's and daughter at the bedside and with Dr. Beltrán stroke specialist at [facility], including records review and direct patient evaluation. Resident Tracking Resident Involvement: Resident Care Provided Care Provided: Adult [facility] Medicine
[2017-12-10 10:03] LABS: BASO % 0.2 %; BASO ABS # 0.02 K/uL (0-0.2); EOS % 0.7 %; EOS ABS # 0.07 K/uL (0-0.5); HEMATOCRIT 41.4 % (42-52); HEMOGLOBIN 14.3 g/dL (14.0-18.0); IG# 0.04 K/uL (0.00-0.02); LYMPH ABS # 1.26 K/uL (1.2-3.4); MEAN CELL VOLUME 87.3 fL (80-100); MEAN CORPUSCULAR HEMOGLOBIN 30.2 pg (25-34); MEAN CORPUSCULAR HGB CONC 34.5 g/dl (32-36); MONO % 9.2 %; MONO ABS # 0.89 K/uL (0.11-0.59); NEUT % 76.5 %; NEUT ABS # 7.39 K/uL (1.4-6.5); PLATELET COUNT 150 K/uL (130-400); RED CELL DISTRIBUTION WIDTH CV 14.5 % (11.5-14.5); RED CELL DISTRIBUTION WIDTH SD 46.7 fL (36.4-46.3); WHITE BLOOD COUNT 9.67 K/uL (4.8-10.8)
--- NOTE | 2017-12-10 10:07 | Clinical Documentation Query ---
AARON Mccurdy : CLINICAL DOCUMENTATION QUERY Patient is an 82 year old male admitted for evaluation of right sided weakness and facial droop. BUN and creatinine this a.m. (12/10) were 24 mg/dl and 1.4 mg/dl. Estimated GFR range of 44-63 ml/min from 07/06/15 to present. Please clarify as clinically appropriate. In your clinical opinion is this patient being managed for: ( x ) Chronic kidney disease, stage 3 ( ) Not Agree ( ) Other explanation of clinical findings (Please Explain) ( ) Unable to determine (Please Define) ( ) Need to Discuss The medical record reflects the following clinical findings, treatment, and risk factors. Clinical Indicators: As above Treatment: Serial chemistries Risk Factors: Age, medications Please clarify and document your clinical opinion in the progress notes and discharge summary. Terms such as "probable", "suspected", "likely", "questionable", "possible", or "still to be ruled out" are acceptable. IF IN AGREEMENT, YOU MUST DOCUMENT ABOVE DIAGNOSTIC STATEMENT IN DAILY PROGRESS NOTES AND DISCHARGE SUMMARY. This document is not part of the patient's record. Thank You, Shan Yao, KEENAN [phone]
[2017-12-10 10:15] LABS: PTT PATIENT 26.1 SECONDS (21.0-31.0)
[2017-12-10] MEDS: CARVEDILOL 3.125 MG TAB PO SCH ×2 (10:21→21:19)
[2017-12-10] MEDS: LOSARTAN POTASSIUM 25 MG TAB PO SCH (10:21)
[2017-12-10] MEDS: PRAVASTATIN SOD 10 MG TAB PO SCH (10:22)
[2017-12-10] MEDS: BUTALBITAL/ACETAMIN/CAFFEINE TAB PO PRN ×2 (10:23→21:18)
[2017-12-10] MEDS: SODIUM CHLORIDE 0.9% 1000ML 1,000 ML IV SCH (10:24)
[2017-12-10 10:29] LABS: ALBUMIN 3.2 gm/dl (3.4-5.0); CALCIUM 8.6 mg/dl (8.5-10.1); CREATININE 1.12 mg/dl (0.60-1.40)
[2017-12-10 10:31] LABS: TOTAL PROTEIN 6.8 gm/dl (6.4-8.2)
[2017-12-10] MEDS ORDERED: PANTOprazole INJ 40 MG in SYRINGE 0 ML IV SCH (11:00)
[2017-12-10] MEDS: ALBUT/IPRATROP 3MG/0.5MG NEB 3 ML VIAL INH SCH ×3 (11:15→19:54)
--- NOTE | 2017-12-10 14:13 | Medical Consult ---
Consultation Date of Consultation: Dec 10, 2017. Attending Physician: Yeimi Sapp MD Reason for Consultation: epistaxis History of Present Illness epistaxis after TPA for CVA Past Medical/Surgical History Medical Problems: (1) Acute electrocardiogram changes Status: Acute (2) Anterior epistaxis Status: Acute (3) CVA (cerebral vascular accident) Status: Acute (4) CVA (cerebral vascular accident) Status: Acute (5) Dizzy Status: Acute (6) Headache Status: Acute (7) Left sided chest pain Status: Acute (8) Left-sided weakness Status: Acute (9) Precordial chest pain Status: Acute (10) Substernal chest pain Status: Acute (11) Substernal chest pain Status: Acute Family History Cancer Diabetes mellitus Heart disease Hypertension Lung disease Social History Smoking Status: Former Smoker Alcohol Use: quit 30 years ago Drug Use: none Marital Status: Housing Status: lives with family, unknown Occupation Status: retired Allergies Coded Allergies: Atorvastatin (Unverified Allergy, Unknown, ., 12/02/17) Cephalosporins (Verified Allergy, Unknown, 12/02/17) Fluticasone (Unverified Allergy, Unknown, ., 12/02/17) Fluvastatin (Unverified Allergy, Unknown, ., 12/02/17) Iodinated Diagnostic Agents (Verified Allergy, Unknown, `, 12/09/17) Lisinopril (Unverified Allergy, Unknown, ., 12/02/17) Oxycodone (Verified Allergy, Unknown, HIVES, 12/02/17) ABLE TO TAKE TYLENOL Penicillins (Verified Allergy, Unknown, 12/09/17) Rosuvastatin (Unverified Allergy, Unknown, ., 12/02/17) Salmeterol (Unverified Allergy, Unknown, ., 12/02/17) Current Inpatient Medications Current Inpatient Medications Medications (Trade) Dose Ordered Sig/Umesh Route Start Time Stop Time Status Last Admin Dose Admin Miscellaneous Information (Pharmacist Discharge Med Rec Consult) 1 ea UD PRN N/A 12/09/17 15:15 01/08/18 15:14 Sodium Chloride 1,000 ml @ 50 mls/hr Q20H IV 12/09/17 15:02 01/08/18 15:01 12/10/17 10:24 50 MLS/HR Al Hydrox/Mg Hydrox/Simethicone (Maalox Max Susp) 15 ml Q4H PRN PO 12/09/17 15:15 01/08/18 15:14 Magnesium Hydroxide (Milk Of Magnesia Susp) 30 ml Q12H PRN PO 12/09/17 15:15 01/08/18 15:14 Ondansetron HCl (Zofran Inj) 4 mg Q6H PRN IV 12/09/17 15:15 01/08/18 15:14 12/09/17 18:03 4 MG Pantoprazole Sodium 40 mg/ Syringe 10 ml @ 5 mls/min DAILY@1100 IV 12/10/17 11:00 01/09/18 10:59 12/10/17 10:24 5 MLS/MIN Miscellaneous Information (Icu Protocol For Hyperglycemia) 1 ea PRN PRN N/A 12/09/17 15:15 12/11/17 15:14 Aspirin (Ecotrin Tab) 81 mg QAM PO 12/10/17 18:00 01/09/18 17:59 Metoprolol Tartrate (Lopressor Iv) 2.5 mg Q6 PRN IV 12/09/17 16:15 01/08/18 16:14 Hydromorphone HCl (Dilaudid Inj) 0.5 mg Q6H PRN IV 12/09/17 18:45 12/23/17 18:44 12/10/17 12:16 0.5 MG Gadobutrol (Gadavist) 9 mmol UD PRN IV 12/10/17 01:05 12/14/17 01:04 Acetaminophen/ Butalbital/ Caffeine (Fioricet Tab) 2 tab Q4H PRN PO 12/10/17 08:45 01/09/18 08:44 12/10/17 10:23 2 TAB Carvedilol (Coreg Tab) 3.125 mg BID PO 12/10/17 09:00 01/09/18 08:59 12/10/17 10:21 3.125 MG Losartan Potassium (coZAAR TAB) 25 mg DAILY PO 12/10/17 09:00 01/09/18 08:59 12/10/17 10:21 25 MG Pravastatin Sodium (Pravachol Tab) 10 mg DAILY PO 12/10/17 09:00 01/09/18 08:59 12/10/17 10:22 10 MG Miscellaneous Information (Order Awaiting Action) 1 ea QS N/A 12/10/17 16:00 01/09/18 15:59 Albuterol/ Ipratropium (Duoneb) 3 ml TIDR INH 12/10/17 09:00 01/09/18 08:59 12/10/17 11:15 3 ML Physical Exam Date Time Temp Pulse Resp B/P (MAP) Pulse Ox O2 Delivery O2 Flow Rate FiO2 12/10/17 13:01 91 14 128/69 (88) 91 Room Air 12/10/17 12:01 97 18 124/65 (84) 91 Room Air 12/10/17 12:00 90 Room Air 12/10/17 11:15 100 18 95 Room Air 12/10/17 11:01 96 22 157/90 (112) 94 Room Air 12/10/17 11:00 96 18 157/90 (112) 96 Room Air 12/10/17 10:01 36.8 87 20 135/92 (106) 95 Room Air 12/10/17 09:01 36.6 143 18 143/79 (100) 94 Room Air 12/10/17 08:01 36.6 92 18 125/64 (84) 93 Room Air 2.0 12/10/17 08:00 36.6 92 18 125/64 (84) 93 Room Air 12/10/17 08:00 36.6 92 18 125/64 (84) 93 Room Air 2.0 12/10/17 08:00 93 Room Air 12/10/17 08:00 36.6 95 18 125/64 (84) 93 Room Air 12/10/17 07:30 95 21 95 12/10/17 07:15 87 13 95 12/10/17 07:10 36.6 87 18 136/70 (92) 97 Room Air 12/10/17 07:01 36.8 87 20 136/70 (92) 99 Nasal Cannula 2.0 12/10/17 07:01 87 15 136/70 (104) 95 12/10/17 07:00 86 16 94 12/10/17 06:45 88 16 94 12/10/17 06:30 85 22 97 12/10/17 06:15 91 19 98 12/10/17 06:10 92 18 159/94 (115) 94 Nasal Cannula 2.0 12/10/17 06:01 90 15 159/94 (102) 95 12/10/17 06:00 92 17 96 12/10/17 05:45 89 0 97 12/10/17 05:34 93 21 171/94 (117) 98 12/10/17 05:30 95 18 171/94 (119) 98 Nasal Cannula 2.0 12/10/17 05:30 95 18 171/94 (119) 98 Nasal Cannula 2.0 12/10/17 05:30 88 20 97 12/10/17 05:15 87 14 96 12/10/17 05:00 87 13 97 12/10/17 04:45 89 18 96 12/10/17 04:30 85 0 98 12/10/17 04:15 95 21 97 12/10/17 04:10 36.7 88 14 177/96 (123) 97 Nasal Cannula 2.0 12/10/17 04:10 95 Nasal Cannula 2.0 12/10/17 04:01 90 11 177/96 (124) 97 12/10/17 04:00 89 14 97 12/10/17 03:10 86 16 174/98 (123) 96 12/10/17 02:00 86 14 168/91 (116) 95 Nasal Cannula 2.0 12/10/17 01:20 85 18 131/81 (98) 92 Room Air 12/10/17 00:00 95 Room Air 12/10/17 00:00 88 16 167/89 (115) 95 Room Air 12/09/17 23:10 36.4 88 16 142/84 (103) 93 Room Air 12/09/17 22:10 36.9 85 18 156/80 (105) 92 Room Air 12/09/17 21:40 36.8 86 16 138/74 (95) 93 Room Air 12/09/17 21:10 36.7 94 16 146/74 (98) 94 Room Air 12/09/17 20:40 36.8 88 18 141/71 (94) 93 Room Air 12/09/17 20:10 36.9 94 18 143/70 (94) 93 Room Air 12/09/17 20:00 93 Room Air 12/09/17 19:40 36.8 85 18 140/72 (94) 93 Room Air 12/09/17 19:10 36.8 86 18 142/72 (95) 92 Room Air 12/09/17 18:40 36.9 96 18 136/72 (93) 97 Room Air 12/09/17 18:10 36.7 95 20 146/77 (100) 96 Room Air 12/09/17 17:40 36.6 93 18 128/66 (86) 95 Room Air 12/09/17 17:30 36.6 88 18 148/82 96 Room Air 12/09/17 17:11 89 22 136/74 12/09/17 17:10 90 23 136/74 93 Room Air 12/09/17 16:40 87 24 133/75 93 Room Air 12/09/17 16:33 89 23 141/91 93 Room Air 12/09/17 16:32 89 12/09/17 16:25 91 27 143/84 94 Room Air 12/09/17 16:10 81 23 113/46 94 Room Air 12/09/17 16:05 79/46 12/09/17 15:55 96 25 153/75 95 Room Air 12/09/17 15:40 98 23 156/91 96 Room Air 12/09/17 15:25 92 18 194/91 95 Room Air 12/09/17 15:10 90 27 176/111 96 Room Air 12/09/17 14:55 85 22 181/96 94 Room Air 12/09/17 14:40 80 22 156/110 94 Room Air 12/09/17 14:25 78 24 135/89 95 Room Air 12/09/17 14:17 79 21 137/77 95 Room Air General Appearance: WD/WN Head: normocephalic Eyes: normal inspection, PERRL ENT: + pertinent finding (epistat left nares) Neck: supple Respiratory/Chest: lungs clear Cardiovascular: regular rate, rhythm Abdomen/GI: non tender Laboratory Results Last 24 Hours Test 12/09/17 21:02 12/10/17 06:04 12/10/17 09:42 Bedside Glucose 108 mg/dl White Blood Count 9.67 K/uL Red Blood Count 4.74 M/uL Hemoglobin 14.3 g/dL Hematocrit 41.4 % Mean Corpuscular Volume 87.3 fL Mean Corpuscular Hemoglobin 30.2 pg Mean Corpuscular Hemoglobin Concent 34.5 g/dl Platelet Count 150 K/uL Mean Platelet Volume 11.0 fL Neutrophils (%) (Auto) 76.5 % Lymphocytes (%) (Auto) 13.0 % Monocytes (%) (Auto) 9.2 % Eosinophils (%) (Auto) 0.7 % Basophils (%) (Auto) 0.2 % Neutrophils # (Auto) 7.39 K/uL Lymphocytes # (Auto) 1.26 K/uL Monocytes # (Auto) 0.89 K/uL Eosinophils # (Auto) 0.07 K/uL Basophils # (Auto) 0.02 K/uL RDW Standard Deviation 46.7 fL RDW Coefficient of Variation 14.5 % Immature Granulocyte % (Auto) 0.4 % Immature Granulocyte # (Auto) 0.04 K/uL Prothrombin Time 10.8 SECONDS Prothromb Time International Ratio 1.0 Activated Partial Thromboplast Time 26.1 SECONDS Partial Thromboplastin Ratio 1.0 Sodium Level 138 mmol/L Potassium Level 4.0 mmol/L Chloride Level 107 mmol/L Carbon Dioxide Level 23 mmol/L Anion Gap 8.0 mmol/L Blood Urea Nitrogen 23 mg/dl Creatinine 1.12 mg/dl Est Creatinine Clear Calc Drug Dose 56.8 ml/min Estimated GFR () 71.0 Estimated GFR (Non- 61.3 BUN/Creatinine Ratio 20.3 Random Glucose 119 mg/dl Calcium Level 8.6 mg/dl Magnesium Level 2.2 mg/dl Total Bilirubin 0.9 mg/dl Direct Bilirubin 0.2 mg/dl Aspartate Amino Transf (AST/SGOT) 15 U/L Alanine Aminotransferase (ALT/SGPT) 37 U/L Alkaline Phosphatase 60 U/L Total Protein 6.8 gm/dl Albumin 3.2 gm/dl Assessment & Plan epistaxis, for endoscopic cautery
[2017-12-10 15:25] LABS: BASO % 0.2 %; BASO ABS # 0.02 K/uL (0-0.2); EOS % 1.6 %; EOS ABS # 0.14 K/uL (0-0.5); HEMATOCRIT 42.8 % (42-52); HEMOGLOBIN 14.5 g/dL (14.0-18.0); IG# 0.02 K/uL (0.00-0.02); LYMPH % 12.3 %; LYMPH ABS # 1.11 K/uL (1.2-3.4); MEAN CELL VOLUME 88.8 fL (80-100); MEAN CORPUSCULAR HEMOGLOBIN 30.1 pg (25-34); MEAN CORPUSCULAR HGB CONC 33.9 g/dl (32-36); MEAN PLATELET VOLUME 11.4 fL (7.4-10.4); MONO % 8.9 %; NEUT % 76.8 %; NEUT ABS # 6.93 K/uL (1.4-6.5); PLATELET COUNT 170 K/uL (130-400); RED CELL DISTRIBUTION WIDTH CV 14.6 % (11.5-14.5); RED CELL DISTRIBUTION WIDTH SD 47.4 fL (36.4-46.3); WHITE BLOOD COUNT 9.02 K/uL (4.8-10.8)
[2017-12-10] MEDS ORDERED: LIDO 2%/EPINEPHRINE 1:100000 20 ML VIAL INFIL ONE (15:28)
[2017-12-10] MEDS ORDERED: GELATIN SPONGE 12-7MM ONE (15:28)
[2017-12-10] MEDS ORDERED: TETRACAINE 4% TOPICAL SOLUTION TOP SCH ×2 (15:30)
[2017-12-10] MEDS ORDERED: TETRACAINE 4% SOLN TOP ONE (15:30)
[2017-12-10] MEDS ORDERED: MIDAZOLAM HCL 1 MG/ML 2ML VIAL ONE (15:36)
[2017-12-10 15:42] LABS: ALBUMIN 3.1 gm/dl (3.4-5.0); CALCIUM 8.7 mg/dl (8.5-10.1); CREATININE 1.26 mg/dl (0.60-1.40); POTASSIUM 3.8 mmol/L (3.5-5.1)
[2017-12-10 15:45] LABS: TOTAL PROTEIN 6.7 gm/dl (6.4-8.2)
[2017-12-10] MEDS ORDERED: ATROPINE SULFATE 0.1 MG/ML 5ML SYR IV PRN (15:45)
[2017-12-10] MEDS ORDERED: FENTANYL CITRATE INJ 50 MCG/1 ML 2 ML VIAL IV PRN (15:45)
[2017-12-10] MEDS ORDERED: GELATIN SPONGE SZ 100 ONE (15:45)
[2017-12-10] MEDS ORDERED: EpHEDrine SULFATE INJ 50 MG/ML AMP IV PRN (15:45)
[2017-12-10] MEDS ORDERED: ONDANSETRON INJ 2 MG/ML 2 ML VIAL ONE (16:27)
--- NOTE | 2017-12-10 16:45 | [facility] Post Operative Brief Note ---
Immediate Operative Summary Operative Date Dec 10, 2017. Pre-Operative Diagnosis Epistaxis Post-Operative Diagnosis Epistaxis Procedure(s) Performed Endoscopic Cauterization Nasal Bleed Surgeon Dr. Allan Ceramic Products Sales Engineer Surgeon(s) none Estimated Blood Loss 20ml Findings Consistent with Post-Op Diagnosis Specimens no specimen Drains None Anesthesia Type MAC Complication(s) none Disposition Accompanied Pt To Recovery: yes Disposition: Surgical ICU
--- NOTE | 2017-12-10 17:01 | Anesthesiology Progress Note ---
Anesthesia Post Op Note Date & Time Dec 10, 2017 at 17:00 Vital Signs Vital Signs Past 12 Hours Date Time Temp Pulse Resp B/P (MAP) Pulse Ox O2 Delivery O2 Flow Rate FiO2 12/10/17 16:51 37.2 97 20 110/65 (72) 93 12/10/17 16:47 92 22 95 12/10/17 16:46 93 20 131/68 (103) 95 12/10/17 16:43 94 20 92 12/10/17 16:43 92 20 12/10/17 16:42 98 23 98/60 (62) 92 12/10/17 16:42 99 23 12/10/17 16:37 103 22 12/10/17 16:37 103 22 105/70 (87) 95 12/10/17 16:36 36.9 98 20 97/68 95 Room Air 12/10/17 14:19 92 14 94 Room Air 12/10/17 14:01 91 17 139/82 (101) 100 Room Air 12/10/17 13:01 91 14 128/69 (88) 91 Room Air 12/10/17 12:01 97 18 124/65 (84) 91 Room Air 12/10/17 12:00 90 Room Air 12/10/17 11:15 100 18 95 Room Air 12/10/17 11:01 96 22 157/90 (112) 94 Room Air 12/10/17 11:00 96 18 157/90 (112) 96 Room Air 12/10/17 10:01 36.8 87 20 135/92 (106) 95 Room Air 12/10/17 09:01 36.6 143 18 143/79 (100) 94 Room Air 12/10/17 08:01 36.6 92 18 125/64 (84) 93 Room Air 2.0 12/10/17 08:00 36.6 92 18 125/64 (84) 93 Room Air 12/10/17 08:00 36.6 92 18 125/64 (84) 93 Room Air 2.0 12/10/17 08:00 93 Room Air 12/10/17 08:00 36.6 95 18 125/64 (84) 93 Room Air 12/10/17 07:30 95 21 95 12/10/17 07:15 87 13 95 12/10/17 07:10 36.6 87 18 136/70 (92) 97 Room Air 12/10/17 07:01 36.8 87 20 136/70 (92) 99 Nasal Cannula 2.0 12/10/17 07:01 87 15 136/70 (104) 95 12/10/17 07:00 86 16 94 12/10/17 06:45 88 16 94 12/10/17 06:30 85 22 97 12/10/17 06:15 91 19 98 12/10/17 06:10 92 18 159/94 (115) 94 Nasal Cannula 2.0 12/10/17 06:01 90 15 159/94 (102) 95 12/10/17 06:00 92 17 96 12/10/17 05:45 89 0 97 12/10/17 05:34 93 21 171/94 (117) 98 12/10/17 05:30 95 18 171/94 (119) 98 Nasal Cannula 2.0 12/10/17 05:30 95 18 171/94 (119) 98 Nasal Cannula 2.0 12/10/17 05:30 88 20 97 12/10/17 05:15 87 14 96 Notes Mental Status: alert / awake / arousable, participated in evaluation Pt Amnestic to Procedure: Yes Nausea / Vomiting: adequately controlled Pain: adequately controlled Airway Patency, RR, SpO2: stable & adequate BP & HR: stable & adequate Hydration State: stable & adequate Anesthetic Complications: no major complications apparent Pt transported back to ICU, VSS throughout, care returned to ICU staff
--- NOTE | 2017-12-10 18:41 | DIAGNOSTIC IMAGING REPORT ---
HEAD WITHOUT CONTRAST (CT) CLINICAL HISTORY: 82 years-old Male presenting with S/P t-PA for Stroke. Evaluate hemorrhage. TECHNIQUE: Multidetector CT imaging of the head was performed without the use of intravenous contrast. IV contrast: None. A dose lowering technique was used consistent with the principles of ALARA (as low as reasonably achievable). COMPARISON: 12/09/2017. CT DOSE (mGy.cm): The estimated cumulative dose is 537.48 mGy.cm. FINDINGS: Nutrition Partner topogram: Unremarkable. Ventricles and sulci normal in size. Brain parenchyma normal in appearance with preserved bailon-white differentiation. No mass effect or midline shift. No hemorrhage or acute territorial infarct. No extra-axial fluid collection. Mucosal thickening in the ethmoid air cells. Partially visualized aerated secretions in the right maxillary sinus. Calvarium intact. IMPRESSION: 1. No acute intracranial abnormality. No hemorrhage. 2. Mucosal thickening in the paranasal sinuses. Electronically signed by: Jayson Malcolm M.D. 12/10/2017 6:40 PM Dictated Date/Time: 12/10/2017 6:37 PM
[2017-12-10] MEDS: ASPIRIN 81 MG ECTAB PO SCH (18:59)
[2017-12-10] MEDS ORDERED: HEPARIN SOD 5000 UNIT/0.5 ML CARP SQ SCH (20:00)
--- NOTE | 2017-12-10 22:27 | OPERATIVE REPORT ---
DATE OF OPERATION: 12/10/2017 PREOPERATIVE DIAGNOSIS: Epistaxis. POSTOPERATIVE DIAGNOSIS: Same. PROCEDURE: Endoscopic cautery and packing and posterior packing. SURGEON: Dr. Allan. ANESTHESIA: Local with sedation. COMPLICATIONS: None. BLOOD LOSS: 20 mL. HISTORY OF PRESENT ILLNESS: This 82-year-old gentleman presented with acute onset of bleeding after receiving INSTRUMENT TECHNOLOGIST for possible stroke yesterday via the Emergency Room. He was packed with epistat but has significant pain and still some oozing, requested the above procedure. DESCRIPTION OF PROCEDURE: The patient was brought to the operating room, placed in supine position, sedated, prepped, draped in usual sterile manner. The epistat was removed and the left side of the nostril was anesthetized using topical 4% tetracaine on cottonoid pledgets. Injection of 2% Xylocaine with 1:100,000 strength epinephrine was also used. The bleeding site was high and posteriorly at the posterior septum across from the left middle turbinate. This was controlled using the suction cautery after removing the large clots from the area. Layer Gelfoam packing was placed posteriorly and then FloSeal was used to fill up the left nostril along with another piece of Gelfoam anteriorly to keep the FloSeal in place. The patient tolerated the procedure well, was taken back to the ICU for recovery. I attest to the content of the Intraoperative Record and any orders documented therein. Any exception s are noted below.
--- NOTE | 2017-12-10 22:45 | Hospitalist Progress Note ---
Hospitalist Progress Note Date of Service Dec 10, 2017. Subjective Pt evaluation today including: conversation w/ patient, conversation w/ family Pt was taken to the OR today for endoscopic cauterization of his epistaxis. He denies any further weakness or numbness, no headache, no CP or SOB, no abd pain. He is tolerating po, moving his bowels, and making urine. I reviewed his previous hospital records and current consultations with specialists this admission. All Other Systems: Reviewed and Negative Objective Vital Signs Date Time Temp Pulse Resp B/P (MAP) Pulse Ox O2 Delivery O2 Flow Rate FiO2 12/10/17 20:00 94 Room Air 12/10/17 19:54 87 14 94 Room Air 12/10/17 19:01 95 23 126/66 (86) 94 12/10/17 18:01 91 23 122/79 (93) 95 12/10/17 16:51 37.2 97 20 110/65 (72) 93 12/10/17 16:47 92 22 95 12/10/17 16:46 93 20 131/68 (103) 95 12/10/17 16:43 94 20 92 12/10/17 16:43 92 20 12/10/17 16:42 98 23 98/60 (62) 92 12/10/17 16:42 99 23 12/10/17 16:37 103 22 12/10/17 16:37 103 22 105/70 (87) 95 12/10/17 16:36 36.9 98 20 97/68 95 Room Air 12/10/17 16:00 94 Room Air 12/10/17 14:19 92 14 94 Room Air 12/10/17 14:01 91 17 139/82 (101) 100 Room Air 12/10/17 13:01 91 14 128/69 (88) 91 Room Air 12/10/17 12:01 97 18 124/65 (84) 91 Room Air 12/10/17 12:00 90 Room Air 12/10/17 11:15 100 18 95 Room Air 12/10/17 11:01 96 22 157/90 (112) 94 Room Air 12/10/17 11:00 96 18 157/90 (112) 96 Room Air 12/10/17 10:01 36.8 87 20 135/92 (106) 95 Room Air 12/10/17 09:01 36.6 143 18 143/79 (100) 94 Room Air 12/10/17 08:01 36.6 92 18 125/64 (84) 93 Room Air 2.0 12/10/17 08:00 36.6 92 18 125/64 (84) 93 Room Air 12/10/17 08:00 36.6 92 18 125/64 (84) 93 Room Air 2.0 12/10/17 08:00 93 Room Air 12/10/17 08:00 36.6 95 18 125/64 (84) 93 Room Air 12/10/17 07:30 95 21 95 12/10/17 07:15 87 13 95 12/10/17 07:10 36.6 87 18 136/70 (92) 97 Room Air 12/10/17 07:01 36.8 87 20 136/70 (92) 99 Nasal Cannula 2.0 12/10/17 07:01 87 15 136/70 (104) 95 12/10/17 07:00 86 16 94 12/10/17 06:45 88 16 94 12/10/17 06:30 85 22 97 12/10/17 06:15 91 19 98 12/10/17 06:10 92 18 159/94 (115) 94 Nasal Cannula 2.0 12/10/17 06:01 90 15 159/94 (102) 95 12/10/17 06:00 92 17 96 12/10/17 05:45 89 0 97 12/10/17 05:34 93 21 171/94 (117) 98 12/10/17 05:30 95 18 171/94 (119) 98 Nasal Cannula 2.0 12/10/17 05:30 95 18 171/94 (119) 98 Nasal Cannula 2.0 12/10/17 05:30 88 20 97 12/10/17 05:15 87 14 96 12/10/17 05:00 87 13 97 12/10/17 04:45 89 18 96 12/10/17 04:30 85 0 98 12/10/17 04:15 95 21 97 12/10/17 04:10 36.7 88 14 177/96 (123) 97 Nasal Cannula 2.0 12/10/17 04:10 95 Nasal Cannula 2.0 12/10/17 04:01 90 11 177/96 (124) 97 12/10/17 04:00 89 14 97 12/10/17 03:10 86 16 174/98 (123) 96 12/10/17 02:00 86 14 168/91 (116) 95 Nasal Cannula 2.0 12/10/17 01:20 85 18 131/81 (98) 92 Room Air 12/10/17 00:00 95 Room Air 12/10/17 00:00 88 16 167/89 (115) 95 Room Air 12/09/17 23:10 36.4 88 16 142/84 (103) 93 Room Air Physical Exam General Appearance: WD/WN, no apparent distress Eyes: normal inspection, sclerae normal ENT: hearing grossly normal, + pertinent finding (left naris with packing in place) Neck: trachea midline Respiratory/Chest: no respiratory distress, no accessory muscle use, + decreased breath sounds (diminished throughout, no wcr) Cardiovascular: regular rate, rhythm, no edema, no murmur Abdomen: normal bowel sounds, non tender, soft Extremities: non-tender, normal inspection, no pedal edema, no calf tenderness Neurologic/Psychiatric: drum worker II-XII nml as tested, no motor/sensory deficits, alert, normal mood/affect, oriented x 3 Skin: normal color, warm/dry, no rash Laboratory Results Last 24 Hours Test 12/10/17 06:04 12/10/17 09:42 12/10/17 14:55 Bedside Glucose 108 mg/dl White Blood Count 9.67 K/uL 9.02 K/uL Red Blood Count 4.74 M/uL 4.82 M/uL Hemoglobin 14.3 g/dL 14.5 g/dL Hematocrit 41.4 % 42.8 % Mean Corpuscular Volume 87.3 fL 88.8 fL Mean Corpuscular Hemoglobin 30.2 pg 30.1 pg Mean Corpuscular Hemoglobin Concent 34.5 g/dl 33.9 g/dl Platelet Count 150 K/uL 170 K/uL Mean Platelet Volume 11.0 fL 11.4 fL Neutrophils (%) (Auto) 76.5 % 76.8 % Lymphocytes (%) (Auto) 13.0 % 12.3 % Monocytes (%) (Auto) 9.2 % 8.9 % Eosinophils (%) (Auto) 0.7 % 1.6 % Basophils (%) (Auto) 0.2 % 0.2 % Neutrophils # (Auto) 7.39 K/uL 6.93 K/uL Lymphocytes # (Auto) 1.26 K/uL 1.11 K/uL Monocytes # (Auto) 0.89 K/uL 0.80 K/uL Eosinophils # (Auto) 0.07 K/uL 0.14 K/uL Basophils # (Auto) 0.02 K/uL 0.02 K/uL RDW Standard Deviation 46.7 fL 47.4 fL RDW Coefficient of Variation 14.5 % 14.6 % Immature Granulocyte % (Auto) 0.4 % 0.2 % Immature Granulocyte # (Auto) 0.04 K/uL 0.02 K/uL Prothrombin Time 10.8 SECONDS 10.7 SECONDS Prothromb Time International Ratio 1.0 1.0 Activated Partial Thromboplast Time 26.1 SECONDS Partial Thromboplastin Ratio 1.0 Sodium Level 138 mmol/L 138 mmol/L Potassium Level 4.0 mmol/L 3.8 mmol/L Chloride Level 107 mmol/L 106 mmol/L Carbon Dioxide Level 23 mmol/L 27 mmol/L Anion Gap 8.0 mmol/L 5.0 mmol/L Blood Urea Nitrogen 23 mg/dl 21 mg/dl Creatinine 1.12 mg/dl 1.26 mg/dl Est Creatinine Clear Calc Drug Dose 56.8 ml/min 50.5 ml/min Estimated GFR () 71.0 61.6 Estimated GFR (Non- 61.3 53.1 BUN/Creatinine Ratio 20.3 16.6 Random Glucose 119 mg/dl 136 mg/dl Calcium Level 8.6 mg/dl 8.7 mg/dl Magnesium Level 2.2 mg/dl 2.2 mg/dl Total Bilirubin 0.9 mg/dl 0.8 mg/dl Direct Bilirubin 0.2 mg/dl 0.2 mg/dl Aspartate Amino Transf (AST/SGOT) 15 U/L 16 U/L Alanine Aminotransferase (ALT/SGPT) 37 U/L 35 U/L Alkaline Phosphatase 60 U/L 61 U/L Total Protein 6.8 gm/dl 6.7 gm/dl Albumin 3.2 gm/dl 3.1 gm/dl Assessment and Plan This pt is an 82 yo male with Hx of dyslipidemia, HTN, COPD, Lung CA S/P resection in 1998, chronic diastolic CHF, CAD S/P STEMI / PCI X 4, tiny cerebral aneurysms, migraine headaches, and prediabetes, who last week he presented with left sided weakness treated with tPA, weakness improved, and patient had a negative MRI and was discharged. He had epistaxis s/p tPA at that time and was seen in ENT office the day of this admission for cauterization. Later that same AM, he presented to the hospital, this time with right-sided numbness/weakness and possible brief aphasia, followed by a severe headache. He was again given tPA, had headache and hypertensive urgency. Right sided symptoms seem to have resolved after tPA administration, but not for many hours afterwards. He continued with epistaxis not amenable to nasal packing. Right-sided numbness/Aphasia/Headache/Stroke-like symptoms-->s/p tPA. All symptoms resolved. MRI brain again without evidence of ischemia or hemorrhage on CT Head. Carotid US without stenosis, MRA head not performed again as was just done last week during admission. Repeat CT Head 24 hrs after tPA again negative. In ICU for post-tPA Critical Care management Given recurrence of symptoms and clinical history, Neurology thinks this may have been a migraine-associated vasospasm, and NOT a TIA or CVA. Afrin for recent epistaxis may have contributed to vasospasm. -fioricet is ordered for his migraine prn which seems to have resolved -start Verapamil 180mg once daily for migraine prevention, watch BP -continue ASA, Plavix -avoid Afrin use -Appreciate Purchasing Director and Neurology consultations CAD status post stenting/PCI 4/Chronic diastolic CHF/HTN/Dyslipidemia-all stable at this time, no evidence of volume overload -continue ASA, Plavix -continue low dose pravastatin given h/o statin intolerance -continue Coreg, losartan -adding Verapamil for migraine prevention as above which will also treat HTN History of lung cancer status post resection in 1998-stable, no issues COPD with no exacerbation -continue home Spiriva, bronchodilators Epistaxis-left nasal cavity-now s/p endoscopic cauterization in OR with Dr. Allan , resolved -Appreciate ENT consultation -follow ENT recommendations for f/u Prediabetes-HgbA1C last admit was 5.8% -follow as outpt -ADA diet recommended Intracerebral aneurysms-tiny -continued surveillance with periodic imaging as outpt CKD Stage KS-FIX-swdgllte GFR 44-63 over the last 3 years. Financial Reporting Advisor here 1.26-1.4 -renally dose meds -avoid nephrotoxins Proph-SCDs Dispo-remain in ICU tonight, transfer to tele tomorrow vs home PT/OT evaluations I personally spent 45 min in critical care time on evaluation, review of records , examination of patient and formation of plan.
[2017-12-11] VITALS (16 sets, daily range): BP systolic 88–124; BP diastolic 49–83; PULSE 64–99; TEMP 36.3–36.7; O2SAT 91–97
[2017-12-11 06:18] LABS: BASO % 0.6 %; BASO ABS # 0.04 K/uL (0-0.2); EOS % 2.4 %; EOS ABS # 0.16 K/uL (0-0.5); HEMATOCRIT 38.3 % (42-52); HEMOGLOBIN 13.2 g/dL (14.0-18.0); IG# 0.04 K/uL (0.00-0.02); LYMPH % 20.5 %; LYMPH ABS # 1.39 K/uL (1.2-3.4); MEAN CELL VOLUME 88.5 fL (80-100); MEAN CORPUSCULAR HEMOGLOBIN 30.5 pg (25-34); MEAN CORPUSCULAR HGB CONC 34.5 g/dl (32-36); MEAN PLATELET VOLUME 11.1 fL (7.4-10.4); MONO % 10.5 %; MONO ABS # 0.71 K/uL (0.11-0.59); NEUT % 65.4 %; NEUT ABS # 4.43 K/uL (1.4-6.5); PLATELET COUNT 141 K/uL (130-400); RED CELL DISTRIBUTION WIDTH CV 14.5 % (11.5-14.5); RED CELL DISTRIBUTION WIDTH SD 47.2 fL (36.4-46.3); WHITE BLOOD COUNT 6.77 K/uL (4.8-10.8)
[2017-12-11 06:49] LABS: ALBUMIN 2.9 gm/dl (3.4-5.0); CALCIUM 8.3 mg/dl (8.5-10.1); CREATININE 1.34 mg/dl (0.60-1.40); PHOSPHORUS 2.7 mg/dl (2.5-4.9); POTASSIUM 4.1 mmol/L (3.5-5.1); TOTAL PROTEIN 6.3 gm/dl (6.4-8.2)
[2017-12-11] MEDS: ALBUT/IPRATROP 3MG/0.5MG NEB 3 ML VIAL INH SCH ×2 (07:44→14:01)
[2017-12-11] MEDS: CARVEDILOL 3.125 MG TAB PO SCH (08:10)
[2017-12-11] MEDS: ASPIRIN 81 MG ECTAB PO SCH (08:10)
[2017-12-11] MEDS: PRAVASTATIN SOD 10 MG TAB PO SCH (08:11)
[2017-12-11] MEDS: LOSARTAN POTASSIUM 25 MG TAB PO SCH (08:11)
--- NOTE | 2017-12-11 08:16 | Anesthesiology Progress Note ---
Anesthesia Post Op Note Date & Time Dec 11, 2017 at 08:16 Vital Signs Pain Intensity: 3.0 Vital Signs Past 12 Hours Date Time Temp Pulse Resp B/P (MAP) Pulse Ox O2 Delivery O2 Flow Rate FiO2 12/11/17 07:45 87 14 96 Room Air 12/11/17 06:00 78 17 114/62 (79) 97 Room Air 12/11/17 04:00 95 Room Air 12/11/17 04:00 83 17 109/61 (77) 95 Room Air 12/11/17 02:01 87 20 88/49 (62) 92 Room Air 12/11/17 01:01 80 18 106/56 (73) 91 12/11/17 00:01 36.7 83 19 113/61 (78) 93 Room Air 12/11/17 00:00 92 Room Air 12/10/17 22:01 82 20 106/57 (73) 94 12/10/17 21:01 89 21 119/64 (82) 94 Notes Mental Status: alert / awake / arousable, participated in evaluation Pt Amnestic to Procedure: Yes Nausea / Vomiting: adequately controlled Pain: adequately controlled Airway Patency, RR, SpO2: stable & adequate BP & HR: stable & adequate Hydration State: stable & adequate Anesthetic Complications: no major complications apparent
[2017-12-11] MEDS ORDERED: VERAPAMIL HCL 180 MG TABCR PO SCH (09:00)
--- NOTE | 2017-12-11 09:12 | Neurology Progress Notes ---
Neurology Progress Note Date of Service Dec 11, 2017. Subjective Right sided weakness, numbness and tingling has fully resolved. He had endoscopic cauterization performed yesterday . States that he no longer has a headache on his left maxillary and frontal area after removal of the nasal packing yesterday. Denies any numbness or tingling or weakness No longer complains of any migraine headaches and had been using Fioricet as needed. Objective Date Time Temp Pulse Resp B/P (MAP) Pulse Ox O2 Delivery O2 Flow Rate FiO2 12/11/17 08:22 36.6 99 20 113/63 (80) 94 Room Air 12/11/17 07:45 87 14 96 Room Air 12/11/17 06:00 78 17 114/62 (79) 97 Room Air 12/11/17 04:00 95 Room Air 12/11/17 04:00 83 17 109/61 (77) 95 Room Air 12/11/17 02:01 87 20 88/49 (62) 92 Room Air 12/11/17 01:01 80 18 106/56 (73) 91 12/11/17 00:01 36.7 83 19 113/61 (78) 93 Room Air 12/11/17 00:00 92 Room Air 12/10/17 22:01 82 20 106/57 (73) 94 12/10/17 21:01 89 21 119/64 (82) 94 12/10/17 20:01 37.2 88 27 98/70 (79) 93 Room Air 12/10/17 20:00 94 Room Air 12/10/17 19:54 87 14 94 Room Air 12/10/17 19:01 95 23 126/66 (86) 94 12/10/17 18:01 91 23 122/79 (93) 95 12/10/17 16:51 37.2 97 20 110/65 (72) 93 12/10/17 16:47 92 22 95 12/10/17 16:46 93 20 131/68 (103) 95 12/10/17 16:43 94 20 92 12/10/17 16:43 92 20 12/10/17 16:42 98 23 98/60 (62) 92 12/10/17 16:42 99 23 12/10/17 16:37 103 22 12/10/17 16:37 103 22 105/70 (87) 95 12/10/17 16:36 36.9 98 20 97/68 95 Room Air 12/10/17 16:00 94 Room Air 12/10/17 14:19 92 14 94 Room Air 12/10/17 14:01 91 17 139/82 (101) 100 Room Air 12/10/17 13:01 91 14 128/69 (88) 91 Room Air 12/10/17 12:01 97 18 124/65 (84) 91 Room Air 12/10/17 12:00 90 Room Air 12/10/17 11:15 100 18 95 Room Air 12/10/17 11:01 96 22 157/90 (112) 94 Room Air 12/10/17 11:00 96 18 157/90 (112) 96 Room Air 12/10/17 10:01 36.8 87 20 135/92 (106) 95 Room Air 12/10/17 09:01 36.6 143 18 143/79 (100) 94 Room Air Last 24 Hours Test 12/10/17 09:42 12/10/17 14:55 12/10/17 21:07 12/11/17 05:50 White Blood Count 9.67 K/uL 9.02 K/uL 6.77 K/uL Red Blood Count 4.74 M/uL 4.82 M/uL 4.33 M/uL Hemoglobin 14.3 g/dL 14.5 g/dL 13.2 g/dL Hematocrit 41.4 % 42.8 % 38.3 % Mean Corpuscular Volume 87.3 fL 88.8 fL 88.5 fL Mean Corpuscular Hemoglobin 30.2 pg 30.1 pg 30.5 pg Mean Corpuscular Hemoglobin Concent 34.5 g/dl 33.9 g/dl 34.5 g/dl Platelet Count 150 K/uL 170 K/uL 141 K/uL Mean Platelet Volume 11.0 fL 11.4 fL 11.1 fL Neutrophils (%) (Auto) 76.5 % 76.8 % 65.4 % Lymphocytes (%) (Auto) 13.0 % 12.3 % 20.5 % Monocytes (%) (Auto) 9.2 % 8.9 % 10.5 % Eosinophils (%) (Auto) 0.7 % 1.6 % 2.4 % Basophils (%) (Auto) 0.2 % 0.2 % 0.6 % Neutrophils # (Auto) 7.39 K/uL 6.93 K/uL 4.43 K/uL Lymphocytes # (Auto) 1.26 K/uL 1.11 K/uL 1.39 K/uL Monocytes # (Auto) 0.89 K/uL 0.80 K/uL 0.71 K/uL Eosinophils # (Auto) 0.07 K/uL 0.14 K/uL 0.16 K/uL Basophils # (Auto) 0.02 K/uL 0.02 K/uL 0.04 K/uL RDW Standard Deviation 46.7 fL 47.4 fL 47.2 fL RDW Coefficient of Variation 14.5 % 14.6 % 14.5 % Immature Granulocyte % (Auto) 0.4 % 0.2 % 0.6 % Immature Granulocyte # (Auto) 0.04 K/uL 0.02 K/uL 0.04 K/uL Prothrombin Time 10.8 SECONDS 10.7 SECONDS 10.9 SECONDS Prothromb Time International Ratio 1.0 1.0 1.0 Activated Partial Thromboplast Time 26.1 SECONDS Partial Thromboplastin Ratio 1.0 Sodium Level 138 mmol/L 138 mmol/L 140 mmol/L Potassium Level 4.0 mmol/L 3.8 mmol/L 4.1 mmol/L Chloride Level 107 mmol/L 106 mmol/L 108 mmol/L Carbon Dioxide Level 23 mmol/L 27 mmol/L 27 mmol/L Anion Gap 8.0 mmol/L 5.0 mmol/L 5.0 mmol/L Blood Urea Nitrogen 23 mg/dl 21 mg/dl 19 mg/dl Creatinine 1.12 mg/dl 1.26 mg/dl 1.34 mg/dl Est Creatinine Clear Calc Drug Dose 56.8 ml/min 50.5 ml/min 47.5 ml/min Estimated GFR () 71.0 61.6 57.2 Estimated GFR (Non- 61.3 53.1 49.3 BUN/Creatinine Ratio 20.3 16.6 14.5 Random Glucose 119 mg/dl 136 mg/dl 82 mg/dl Calcium Level 8.6 mg/dl 8.7 mg/dl 8.3 mg/dl Magnesium Level 2.2 mg/dl 2.2 mg/dl 2.2 mg/dl Total Bilirubin 0.9 mg/dl 0.8 mg/dl 1.1 mg/dl Direct Bilirubin 0.2 mg/dl 0.2 mg/dl 0.3 mg/dl Aspartate Amino Transf (AST/SGOT) 15 U/L 16 U/L 16 U/L Alanine Aminotransferase (ALT/SGPT) 37 U/L 35 U/L 32 U/L Alkaline Phosphatase 60 U/L 61 U/L 53 U/L Total Protein 6.8 gm/dl 6.7 gm/dl 6.3 gm/dl Albumin 3.2 gm/dl 3.1 gm/dl 2.9 gm/dl Bedside Glucose 90 mg/dl Phosphorus Level 2.7 mg/dl [~ rep ct add3]] HEAD WITHOUT CONTRAST (CT) CLINICAL HISTORY: 82 years-old Male presenting with S/P t-PA for Stroke. Evaluate hemorrhage. TECHNIQUE: Multidetector CT imaging of the head was performed without the use of intravenous contrast. IV contrast: None. A dose lowering technique was used consistent with the principles of ALARA (as low as reasonably achievable). COMPARISON: 12/09/2017. CT DOSE (mGy.cm): The estimated cumulative dose is 537.48 mGy.cm. FINDINGS: Land Commissioner topogram: Unremarkable. Ventricles and sulci normal in size. Brain parenchyma normal in appearance with preserved bailon-white differentiation. No mass effect or midline shift. No hemorrhage or acute territorial infarct. No extra-axial fluid collection. Mucosal thickening in the ethmoid air cells. Partially visualized aerated secretions in the right maxillary sinus. Calvarium intact. IMPRESSION: 1. No acute intracranial abnormality. No hemorrhage. 2. Mucosal thickening in the paranasal sinuses. Electronically signed by: Jayson Malcolm M.D. 12/10/2017 6:40 PM Dictated Date/Time: 12/10/2017 6:37 PM Exam: GENERAL: Patient is in no acute distress. HEENT: No acute trauma, normocephalic atraumatic, mucous membranes moist. left nares with nasal packing s/p cauterization NECK: No stridor, no adenopathy, no meningismus, trachea is midline. LUNGS: Clear to auscultation bilaterally, no wheeze, no rhonchi, breath sounds equal. HEART: systolic murmur, regular rate and rhythm. ABDOMEN: Soft, nontender, bowel sounds positive, no hernias, no peritonitis. EXTREMITIES: No cyanosis or edema, full range of motion of all the joints without pain or difficulty, no signs for acute trauma. NEUROLOGIC: Oriented x 3, no acute motor or sensory deficits, no focal weakness. SKIN: No rash, no jaundice, no diaphoresis. Impression / Plan 82-year-old male with past medical history of hyperlipidemia, hypertension, coronary artery disease status post STEMI/PCI 4, COPD/emphysema, lung cancer status post resection in 1998, migraines presented to the ER with complaints of right-sided weakness and numbness that started about 30 minutes prior to arrival. Status post TPA at 1345 yesterday(12/09). Had received 15 mg IV hydralazine for systolic blood pressure greater than 185 which had dropped his blood pressure to 70 and received a bolus. He had left nasal bleeding and has a Rhino Rocket.He was admitted at [facility] on 12/02 for left- sided weakness and had received TPA. He was discharged after his MRI was unremarkable. Stroke versus complex migraine: It is likely this right-sided weakness and numbness secondary to a migraine aura and had preceded his headache. During his last admission when he had presented with left-sided weakness, he was accompanied by headache too . He does have a history of migraine headaches and usually uses Tylenol/Ultram for pain control . - NIHSS 0 - Head CT 2 negative , MRI brain is unremarkable, ultrasound carotid unremarkable. - Repeat head CT per protocol negative - Continue aspirin and Plavix - Continue statin therapy with pravastatin 10 mg daily - Verapamil 180 mg SR daily. Blood pressure has been on the lower side and he might need some adjusting of his other blood pressure medications per discretion of the primary team. - Avoid vasoconstrictors like Afrin, triptans. May use Tylenol/tramadol/ Phrenilin( butalbital/acetaminophen without caffeine) as abortive for migraine attacks - Stable for discharge from neurology standpoint. - Follow up with neurology in 1-2 weeks. Attending note: Reviewed this resident's note and I agree with her impression and plan. Patient is doing very well with no complaints of headache or face pain. He has no new weakness or numbness of the limbs and feels back to baseline. On neurologic examination he has no focal neurologic deficits with good strength , tone, and movement of the limbs, no facial droop, and no speech or mentation problems. 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 He has no evidence of significant cerebral vascular disease and no evidence of stroke. There is no evidence of significant vessel stenosis in head or neck. Because of his vasospastic events and his hypertension I recommend staying on verapamil 180 milligrams SR once in the morning. Avoid any vasoconstrictive medications such as listed above. I have no further neurologic testing or treatment recommendations to make for this patient otherwise. Please contact me if I can be of further assistance otherwise I can see as an outpatient. -John Hensley MD Resident Tracking Resident Involvement: Resident Care Provided Care Provided: Adult Hospital Medicine
[2017-12-11] MEDS ORDERED: SODIUM CHLORIDE 0.65% NA SOLN 45 ML (OCEAN) ONE (14:06)
[2017-12-11] MEDS ORDERED: SODIUM CHLORIDE 0.65% NA SOLN 45 ML (OCEAN) PRN (14:30)
[2017-12-11] MEDS ORDERED: NURSING DECISION MEDICATION ORDER SCH (14:30)
[2017-12-11] MEDS ORDERED: VRPSR180 PO (17:54)
[2017-12-11] MEDS ORDERED: SALI0.6510 (17:54)
--- NOTE | 2017-12-11 17:59 | Discharge Instructions ---
Discharge Instructions Date of Service Dec 11, 2017. Admission Reason for Admission: Suspected CVA Discharge Discharge Diagnosis / Problem: Hemiplegic migraine Discharge Goals Goal(s): Improve disease control, Diagnostic testing, Therapeutic intervention Activity Recommendations Activity Limitations: resume your previous activity . Instructions / Follow-Up Instructions / Follow-Up You were admitted for a suspected stroke and received tPA (clot buster). You had a brain MRI which was negative for stroke, and the Neurologist evaluated you. He thinks that you may have had a migraine with vasospasm of the blood vessels in your brain that caused these symptoms to happen. You did have persistent nose bleeding which was cauterized by Dr. Allan/ENT. Please continue on a new medication called Verapamil to help prevent these types of migraines from occurring again. If you should have return of these same symptoms, it is always best to get checked out at the hospital, but please make sure the staff taking care of you are aware of your history of suspected hemiplegic migraines. Check your blood pressure daily after starting the Verapamil and let your doctor know if it goes below 100 for the top number, or if you feel lightheaded or dizzy. Please follow up with your PCP in 1-2 weeks, as well as with Dr. Hensley in Neurology in 1-2 weeks. Please also follow up with Dr. Allan as scheduled in a few weeks. Current Hospital Diet Patient's current hospital diet: AHA Diet (Heart Healthy) Discharge Diet Recommended Diet: AHA Diet (Heart Healthy) Procedures Procedures Performed: Endoscopic Cauterization Nasal Bleed Pending Studies Studies pending at discharge: no Laboratory Results Hemoglobin A1c Test 12/02/17 08:33 Range/Units Estimated Average Glucose 120 mg/dl Hemoglobin A1c 5.8 H 4.5-5.6 % Lipid Panel Test 12/03/17 09:30 Range/Units Triglycerides Level 179 H 0-150 mg/dl Cholesterol Level 143 0-200 mg/dl HDL Cholesterol 45 mg/dl Cholesterol/HDL Ratio 3.2 LDL Cholesterol, Calculated 62 mg/dl Medical Emergencies . Who to Call and When: Medical Emergencies: If at any time you feel your situation is an emergency, please call 911 immediately. . Non-Emergent Contact Non-Emergency issues call your: Primary Care Provider Call Non-Emergent contact if: your pain is not controlled, your pain is worsening, your pain is unusual for you, your pain is concerning you, you have any medication questions your nosebleed starts again, or for any other acute concerns. . . "Provider Documentation" section prepared by Yeimi Sapp. .
--- NOTE | 2017-12-11 18:09 | Discharge Summary ---
Discharge Summary Date of Service Dec 11, 2017. Discharge Summary Admission Date: Dec 09, 2017 at 16:17 Discharge Date: Dec 11, 2017 Discharge Disposition: Home Principal Diagnosis: Hemiplegic migraine, Epistaxis Problems/Secondary Diagnoses: Dyslipidemia HTN COPD History of Lung CA S/P resection in 1998 Chronic diastolic CHF CAD S/P STEMI / PCI X 4 Cerebral aneurysms Migraine headaches Prediabetes Thrombocytopenia-mild CKD Stage II-III Immunizations: Have You Had Influenza Vaccine: Yes History of Tetanus Vaccine?: Yes History of Pneumococcal: Yes History of Hepatitis B Vaccine: No Procedures: MRI Brain Carotid US CT Head x 3 Endoscopic cauterization of epistaxis Consultations: Neurology Critical Care Medicine ENT Medication Reconciliation New Medications: Saline ([place] Nasal [place]) 0.65 % Spr 1 SPRAYS NA PRN PRN for DRYNESS for 30 Days, #1 BTL Verapamil HCl (Verapamil HCl ER) 180 Mg Tabcr 180 MG PO QAM for 30 Days, #30 TAB Continued Medications: Albuterol Sulf (Proventil 0.083% 2.5MG/3ML) 2.5 Mg/3 Ml Nebu 1 DOSE NEB Q6H PRN for Wheezing INHALE THE CONTENTS OF ONE (3ML) VIAL IN THE NEBULIZER EVERY 6 HOURS NEEDED FOR WHEEZING Aspirin (Aspirin Ec) 81 Mg Tab 81 MG PO DAILY Carvedilol (Carvedilol) 3.125 Mg Tab 3.125 MG PO BID Clopidogrel (Plavix) 75 Mg Tab 75 MG PO DAILY, TAB Coenzyme Q10 (Ubidecarenone) (Coq-10) 100 Mg Cap 100 MG PO DAILY Losartan Potassium (Losartan Potassium) 25 Mg Tab 25 MG PO DAILY Nitroglycerin (Nitrostat) 0.4 Mg Tab 0.4 MG UT PRN PRN for Chest Pain Pravastatin Sod (Pravastatin Sodium) 10 Mg Tab 10 MG PO DAILY Tiotropium [place] (Spiriva Respimat) 1.25 Mcg/Act Aer 1 CAP INH DAILY Referrals At Discharge Follow up Referrals: Neurologist Referral - Within 1-2 Weeks with Mannie Hensley M.D. Discharge Exam Pt feeling very well. No further epistaxis. No headache, no CP or SOB, no visual changes. No weakness or numbness. He is ambulating around the halls without difficulty. BPs have been good since starting verapamil, and remains in NSR on telemetry. Review of Systems: Constitutional: No fever Eyes: No problem reported ENT: No problem reported Respiratory: No problem reported Cardiovascular: No problem reported Abdomen: No problem reported Musculoskeletal: No problem reported Genitourinary - Male: No problem reported Neurologic: No problem reported Psychiatric: No problem reported Endocrine: No problem reported Hematologic / Lymphatic: No problem reported Integumentary: No problem reported Physical Exam: General Appearance: WD/WN, no apparent distress Eyes: normal inspection, EOMI, sclerae normal ENT: hearing grossly normal, pharynx normal, + pertinent finding (no packing coming from nose) Neck: trachea midline Respiratory/Chest: lungs clear, normal breath sounds, no respiratory distress, no accessory muscle use Cardiovascular: regular rate, rhythm, no edema, no gallop, no murmur Abdomen / GI: normal bowel sounds, non tender, soft Extremities: normal inspection, no calf tenderness, normal capillary refill , no pedal edema, normal range of motion Neurologic/Psychiatric: broadloom weaver II-XII nml as tested, no motor/sensory deficits , alert, normal mood/affect, oriented x 3 Skin: normal color, warm/dry, no rash Hospital Course This pt is an 82 yo male with Hx of dyslipidemia, HTN, COPD, Lung CA S/P resection in 1998, chronic diastolic CHF, CAD S/P STEMI / PCI X 4, tiny cerebral aneurysms, migraine headaches, and prediabetes, who last week he presented with left sided weakness treated with tPA, weakness improved, and patient had a negative MRI and was discharged. He had epistaxis s/p tPA at that time and was seen in ENT office the day of this admission for cauterization. Later that same AM, he presented to the hospital, this time with right-sided numbness/weakness and possible brief aphasia, followed by a severe headache. He was again given tPA, had headache and hypertensive urgency. Right sided symptoms seem to have resolved after tPA administration, but not for many hours afterwards. He continued with epistaxis not amenable to nasal packing. Right-sided numbness and weakness/Aphasia/Headache/Stroke-like symptoms-->s/p tPA. All symptoms resolved. MRI brain again without evidence of ischemia or hemorrhage on CT Head. Carotid US without stenosis, MRA head not performed again as was just done last week during admission. Repeat CT Head 24 hrs after tPA again negative. Was in ICU for post-tPA Critical Care management Given recurrence of symptoms and clinical history, Neurology thinks this may have been a migraine-associated vasospasm, and NOT a TIA or CVA. Afrin for recent epistaxis may have contributed to vasospasm, although he does not recall using Afrin at all prior to the first episode of hemiplegia. -started Verapamil 180mg once daily for migraine prevention, watch BPs at home after discharge but have been fine here since starting this medication -continue ASA, Plavix -avoid Afrin use in case contributed to vasospasm -Appreciate Tow Mate and Neurology consultations -f/u with Neurology in office in 1-2 weeks CAD status post stenting/PCI 4/Chronic diastolic CHF/HTN/Dyslipidemia-all stable at this time, no evidence of volume overload -continue ASA, Plavix -continue low dose pravastatin given h/o statin intolerance, Coq10 -continue Coreg, losartan -added Verapamil for migraine prevention as above which will also treat HTN History of lung cancer status post resection in 1998-stable, no issues COPD with no exacerbation -continue home Spiriva, bronchodilators Epistaxis-left nasal cavity-now s/p endoscopic cauterization in [place] with Dr. Allan , resolved -Appreciate ENT consultation -follow up with ENT in a few weeks in office -packing in posterior nasal cavity to dissolve on its own Prediabetes-HgbA1C last admit was 5.8% -follow as outpt -ADA diet recommended Intracerebral aneurysms-tiny -continued surveillance with periodic imaging as outpt CKD Stage [id number] GFR 44-63 over the last 3 years. 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 Discharge Instructions Please refer to the electronic Patient Visit Report (Discharge Instructions) for additional information. Follow-Up Neuro in 1-2 weeks PCP in 1-2 weeks ENT in 3 weeks Additional Copies To Daryn Pettit M.D.; Mannie Hensley M.D.
== END 2017-12-11 19:00 | disposition home or self-care (01) | DRG 982 ==
LOC: EDBD 12:28 → C.EDB 12:29 → C.MSICU 16:17 → ENRESERV 16:41
PROVIDERS: ADMIT Internal Medicine; ATTEND Family Medicine
PROC: 3E03317 Introduction of Other Thrombolytic into Peripheral Vein, Percutaneous Approach (ICD-10-PCS; 2017-12-09)
PROC: 2Y41X5Z Packing of Nasal Region using Packing Material (ICD-10-PCS; 2017-12-09)
PROC: 2Y41X5Z Packing of Nasal Region using Packing Material (ICD-10-PCS; principal; 2017-12-10 12:45)
PROC: 0W3Q8ZZ Control Bleeding in Respiratory Tract, Via Natural or Artificial Opening Endoscopic (ICD-10-PCS; principal; 2017-12-10 12:45)
DX: G43.409 Hemiplegic migraine, not intractable, without status migrainosus (principal); I50.32 Chronic diastolic (congestive) heart failure; R47.01 Aphasia; K57.30 Diverticulosis of large intestine without perforation or abscess without bleeding; I67.1 Cerebral aneurysm, nonruptured; Z83.3 Family history of diabetes mellitus; R04.0 Epistaxis; E78.5 Hyperlipidemia, unspecified; J44.9 Chronic obstructive pulmonary disease, unspecified; N18.3 Chronic kidney disease, stage 3 (moderate); R20.0 Anesthesia of skin; I25.2 Old myocardial infarction; I25.10 Atherosclerotic heart disease of native coronary artery without angina pectoris; Z95.5 Presence of coronary angioplasty implant and graft; I73.9 Peripheral vascular disease, unspecified; Z96.659 Presence of unspecified artificial knee joint; Z88.0 Allergy status to penicillin; R73.03 Prediabetes; Z85.118 Personal history of other malignant neoplasm of bronchus and lung

== ENCOUNTER → 2017-12-17 | Outpatient (CLI) | payer BC ==
[~2017-12-17] MED LIST changes: +ASPEC81 PO; +CARV3.122 PO; +COEN100C11 PO; +FLUV1CAP PO; +LISI-461 PO; +LISI10TA PO; +NTRSLP4 SL; +PLV75 PO; +PRVC/10 PO; +RANI150C4 PO; +SALI0.6510; +SPRIN/30 INH; +VRPSR180 PO
--- NOTE | 2017-12-17 12:05 | DIAGNOSTIC IMAGING REPORT ---
CHEST 2 VIEWS ROUTINE CLINICAL HISTORY: R05 Cough COMPARISON STUDY: 12/02/2017 FINDINGS: Postsurgical changes are again evident within the left hemithorax. There is left-sided volume loss. There is elevation left hemidiaphragm. There is left apical pleural thickening. There is increased density of the left hilum with adjacent fibrotic spiculations. There is no acute parenchymal consolidation. There is no failure. There are no significant pleural effusions.[ IMPRESSION: Stable postsurgical changes in the left. No acute findings. Electronically signed by: Ortega Nino M.D. 12/17/2017 12:03 PM Dictated Date/Time: 12/17/2017 12:02 PM
[2017-12-17 13:08] LABS: BASO % 0.8 %; BASO ABS # 0.05 K/uL (0-0.2); EOS % 2.1 %; EOS ABS # 0.13 K/uL (0-0.5); HEMATOCRIT 42.2 % (42-52); HEMOGLOBIN 14.1 g/dL (14.0-18.0); IG# 0.04 K/uL (0.00-0.02); LYMPH % 18.8 %; LYMPH ABS # 1.14 K/uL (1.2-3.4); MEAN CELL VOLUME 89.4 fL (80-100); MEAN CORPUSCULAR HEMOGLOBIN 29.9 pg (25-34); MEAN CORPUSCULAR HGB CONC 33.4 g/dl (32-36); MEAN PLATELET VOLUME 10.4 fL (7.4-10.4); MONO % 9.1 %; MONO ABS # 0.55 K/uL (0.11-0.59); NEUT % 68.5 %; NEUT ABS # 4.14 K/uL (1.4-6.5); PLATELET COUNT 246 K/uL (130-400); RED CELL DISTRIBUTION WIDTH CV 14.5 % (11.5-14.5); RED CELL DISTRIBUTION WIDTH SD 47.7 fL (36.4-46.3); WHITE BLOOD COUNT 6.05 K/uL (4.8-10.8)
== END | disposition home or self-care (01) ==
LOC: C.RADBC 11:49
PROVIDERS: ATTEND Nurse Practitioner Adult Health
DX: R05 Cough (principal)

== ENCOUNTER 2018-04-20 15:03 | Observation (INO) | payer BC ==
[~2018-04-20] VITALS: Ht 182.9 cm; Wt 79.8 kg
[~2018-04-20 15:03] MED LIST changes: -ASPEC81 PO; -CARV3.122 PO; -CHOL2000 PO; -COEN1CAP PO; -FLUV1CAP PO; -LISI-461 PO; -LISI10TA PO; -NTRSLP4 SL; -NZRCR TOP; -PLV75 PO; -PRAV10TA39 PO; -PRD5 PO; -RANI150C4 PO; -SPRIN/30 INH
[2018-04-20 15:35] LABS: BASO ABS # 0.05 K/uL (0-0.2); HEMATOCRIT 43.6 % (42-52); HEMOGLOBIN 14.9 g/dL (14.0-18.0); IG# 0.02 K/uL (0.00-0.02); LYMPH % 24.1 %; MEAN CELL VOLUME 86.7 fL (80-100); MEAN CORPUSCULAR HEMOGLOBIN 29.6 pg (25-34); MEAN CORPUSCULAR HGB CONC 34.2 g/dl (32-36); MEAN PLATELET VOLUME 11.3 fL (7.4-10.4); MONO % 12.2 %; MONO ABS # 0.61 K/uL (0.11-0.59); NEUT % 58.3 %; PLATELET COUNT 155 K/uL (130-400); RED CELL DISTRIBUTION WIDTH CV 13.7 % (11.5-14.5); RED CELL DISTRIBUTION WIDTH SD 43.1 fL (36.4-46.3); WHITE BLOOD COUNT 4.98 K/uL (4.8-10.8)
--- NOTE | 2018-04-20 15:37 | DIAGNOSTIC IMAGING REPORT ---
CHEST ONE VIEW PORTABLE CLINICAL HISTORY: Atypical chest pain COMPARISON STUDY: December 17, 2017 FINDINGS: Postsurgical changes are again evident within the left hemithorax. There is left-sided volume loss. There is elevation left hemidiaphragm. There is left apical pleural thickening. There is increased density left hilum with adjacent fibrotic spiculations. There is no acute parenchymal consolidation. There is no failure. There are no pleural effusions.[ IMPRESSION: 1. No acute findings 2. Stable postsurgical changes within the left hemithorax Electronically signed by: Ortega Nino M.D. 04/20/2018 3:35 PM Dictated Date/Time: 04/20/2018 3:34 PM
[2018-04-20] MEDS ORDERED: FENTANYL CITRATE INJ 50 MCG/1 ML 2 ML VIAL IV ONE (15:45)
[2018-04-20 15:46] LABS: PTT PATIENT 26.4 SECONDS (21.0-31.0)
[2018-04-20 15:56] LABS: ALBUMIN 3.4 gm/dl (3.4-5.0); ALKALINE PHOSPHATASE 52 U/L (45-117); ALT/SGPT 19 U/L (12-78); AST/SGOT 12 U/L (15-37); BLOOD UREA NITROGEN 16 mg/dl (7-18); CALCIUM 8.6 mg/dl (8.5-10.1); CARBON DIOXIDE 25 mmol/L (21-32); CREATININE 1.28 mg/dl (0.60-1.40); GLUCOSE 69 mg/dl (70-99); LIPASE 170 U/L (73-393); POTASSIUM 3.9 mmol/L (3.5-5.1); SODIUM 141 mmol/L (136-145)
[2018-04-20] MEDS ORDERED: VERA180C2 PO (16:42)
[2018-04-20] MEDS ORDERED: PLV75 PO (16:42)
[2018-04-20] MEDS ORDERED: VNTHFA/IN INH (16:42)
[2018-04-20] MEDS ORDERED: ALUMINUM/MAGNESIUM/SIMETH (MAALOX MAX) 30 ML UDC PO PRN (16:45)
[2018-04-20] MEDS ORDERED: NITROGLYCERIN 0.4 MG SL PER TAB CHARGE SL PRN (16:45)
[2018-04-20] MEDS ORDERED: ONDANSETRON INJ 2 MG/ML 2 ML VIAL IV PRN (16:45)
[2018-04-20] MEDS ORDERED: POLYETHYLENE (MIRALAX) 17 GM PACK PO PRN (16:45)
[2018-04-20] MEDS ORDERED: ACETAMINOPHEN 325 MG TAB PO PRN (16:45)
[2018-04-20] MEDS ORDERED: MAGNESIUM HYDROXIDE SUSP 30 ML UDC PO PRN (16:45)
[2018-04-20] MEDS ORDERED: ALBUTEROL 0.083% NEBU SOLN 3 ML VIAL INH PRN (16:45)
[2018-04-20] MEDS ORDERED: CHOL1000 PO (16:48)
--- NOTE | 2018-04-20 17:31 | EMERGENCY ROOM VISIT NOTE ---
History Report prepared by Laine: Gopi Addison Under the Supervision of: Dr. Raul Carroll First contact with patient: 15:03 Stated Complaint: CHEST PAIN History of Present Illness The patient is a 82 year old who presents to the Emergency Room with complaints of constant chest pain that began at 1230 The patient states he was watching television when he had a sudden onset of chest pain that radiated to his left arm and back. He reports he took 4 Aspirin and 3 Nitroglycerin at home. Per EMS, the patient was given 2 Nitroglycerin and 324 mg of Aspiring PO. The patient's pressure was 130 until he arrived at the hospital. His blood pressure then dropped to 100s systolically. The patient started to complain of some shortness of breath at that time. EMS did put him on 3 L of oxygen to relieve his dyspnea. The patient reports he is no longer short of breath. The patient does note he had a migraine headache on the left side earlier today, but states it had resolved. He denies any fever, abdominal tenderness, nausea, and diaphoresis. The patient states his symptoms are similar to his previous heart issues. He states he had a myocardial infarction two years ago. He notes he did have 4 stents placed. Source of History: patient, EMS Onset: 1230 Position: chest Timing: constant Modifying Factors (Relieving): other (Nitro, Aspirin) Associated Symptoms: + headache (resolved), + SOB, + back pain, No fevers, No diaphoresis, No nausea, No abdominal pain Note: Associated symptoms: left arm pain Review of Systems See HPI for pertinent positives and negatives. A total of ten systems were reviewed and were otherwise negative. Past Medical & Surgical Medical Problems: (1) Appendectomy (2) Diverticulosis Colon (W/O Ment Of Hemorrhage) (3) Emphysematous Bleb (4) Hemiplegic migraine (5) Knee Joint Replacement Status (6) Lobectomy of lung (7) [place]ks Bronch/Lung Nos (8) Mal Aleks Upper Lobe Lung (9) Pneumonia, Organism Nos (10) Unstable angina Surgical Problems: (1) History of cardiac cath (2) History of cardiac catheterization (3) Stented coronary artery (4) Stented coronary artery Family History Cancer Diabetes mellitus Heart disease Hypertension Lung disease Social History Smoking Status: Former Smoker Alcohol Use: none Drug Use: none Marital Status: Housing Status: lives with family, unknown Occupation Status: retired Current/Historical Medications Scheduled Aspirin (Aspirin Ec), 81 MG PO DAILY Carvedilol (Carvedilol), 3.125 MG PO BID Cholecalciferol (Vitamin D3), 1,000 INTER.UNIT PO QPM Clopidogrel (Plavix), 75 MG PO DAILY Losartan Potassium (Losartan Potassium), 25 MG PO DAILY Pravastatin Sod (Pravastatin Sodium), 10 MG PO DAILY Tiotropium [place] (Spiriva Respimat), 1 CAP INH QAM Verapamil HCl (Verapamil HCl ER), 180 MG PO QAM Scheduled PRN Albuterol Hfa (Ventolin Hfa), 2 PUFFS INH QID PRN for Wheezing Albuterol Sulf (Proventil 0.083% 2.5MG/3ML), 1 DOSE NEB Q6H PRN for Wheezing Nitroglycerin (Nitrostat), 0.4 MG UT UD PRN for Chest Pain Allergies Coded Allergies: Atorvastatin (Unverified Allergy, Unknown, ., 12/02/17) Cephalosporins (Verified Allergy, Unknown, 12/02/17) Fluticasone (Unverified Allergy, Unknown, ., 12/02/17) Fluvastatin (Unverified Allergy, Unknown, ., 12/02/17) Iodinated Diagnostic Agents (Verified Allergy, Unknown, `, 12/09/17) Lisinopril (Unverified Allergy, Unknown, ., 12/02/17) Oxycodone (Verified Allergy, Unknown, HIVES, 12/02/17) ABLE TO TAKE TYLENOL Penicillins (Verified Allergy, Unknown, 12/09/17) Rosuvastatin (Unverified Allergy, Unknown, ., 12/02/17) Salmeterol (Unverified Allergy, Unknown, ., 12/02/17) Physical Exam Vital Signs Date Time Temp Pulse Resp B/P (MAP) Pulse Ox O2 Delivery O2 Flow Rate FiO2 04/20/18 16:57 61 18 127/74 95 Room Air 04/20/18 16:14 63 18 124/79 96 Room Air 04/20/18 15:18 65 04/20/18 15:15 97 Room Air 04/20/18 15:15 97 Room Air 04/20/18 15:15 36.5 66 18 137/78 97 Room Air Physical Exam GENERAL: Awake, alert, well-appearing, in no distress HENT: Normocephalic, atraumatic. Oropharynx unremarkable. EYES: Normal conjunctiva. Sclera non-icteric. NECK: Supple. No nuchal rigidity. RESPIRATORY: Clear to auscultation. No wheezes. Normal respiratory effort. CARDIAC: Normal rate. Normal rhythm. Extremities warm and well perfused. GI: Soft, non-distended. No tenderness to palpation. No rebound or guarding. No masses. RECTAL: Deferred. MUSCULOSKELETAL: Atraumatic. Chest examination reveals some left sided chest wall tenderness. The back is symmetrical on inspection without obvious abnormality. There is no CVA tenderness to palpation. LOWER EXTREMITIES: Calves are equal size bilaterally and non-tender. No edema NEURO: Normal sensorium. No sensory or motor deficits noted. SKIN: Warm and dry. No rash or jaundice noted. Medical Decision & Procedures ER Provider Diagnostic Interpretation: X-ray: Per my interpretation, radiologist review. CHEST ONE VIEW PORTABLE CLINICAL HISTORY: Atypical chest pain COMPARISON STUDY: December 17, 2017 FINDINGS: Postsurgical changes are again evident within the left hemithorax. There is left-sided volume loss. There is elevation left hemidiaphragm. There is left apical pleural thickening. There is increased density left hilum with adjacent fibrotic spiculations. There is no acute parenchymal consolidation. There is no failure. There are no pleural effusions.[ IMPRESSION: 1. No acute findings 2. Stable postsurgical changes within the left hemithorax Electronically signed by: Ortega Nino M.D. 04/20/2018 3:35 PM Dictated Date/Time: 04/20/2018 3:34 PM Laboratory Results 04/20/18 14:28 Red Blood Count 5.03, Mean Corpuscular Volume 86.7, Mean Corpuscular Hemoglobin 29.6, Mean Corpuscular Hemoglobin Concent 34.2, Mean Platelet Volume 11.3, Neutrophils (%) (Auto) 58.3, Lymphocytes (%) (Auto) 24.1, Monocytes (%) (Auto) 12.2, Eosinophils (%) (Auto) 4.0, Basophils (%) (Auto) 1.0, Neutrophils # (Auto ) 2.90, Lymphocytes # (Auto) 1.20, Monocytes # (Auto) 0.61, Eosinophils # (Auto ) 0.20, Basophils # (Auto) 0.05 04/20/18 14:28 Test 04/20/18 14:28 04/20/18 15:29 White Blood Count 4.98 K/uL (4.8-10.8) Red Blood Count 5.03 M/uL (4.7-6.1) Hemoglobin 14.9 g/dL (14.0-18.0) Hematocrit 43.6 % (42-52) Mean Corpuscular Volume 86.7 fL (80-100) Mean Corpuscular Hemoglobin 29.6 pg (25-34) Mean Corpuscular Hemoglobin Concent 34.2 g/dl (32-36) Platelet Count 155 K/uL (130-400) Mean Platelet Volume 11.3 fL (7.4-10.4) Neutrophils (%) (Auto) 58.3 % Lymphocytes (%) (Auto) 24.1 % Monocytes (%) (Auto) 12.2 % Eosinophils (%) (Auto) 4.0 % Basophils (%) (Auto) 1.0 % Neutrophils # (Auto) 2.90 K/uL (1.4-6.5) Lymphocytes # (Auto) 1.20 K/uL (1.2-3.4) Monocytes # (Auto) 0.61 K/uL (0.11-0.59) Eosinophils # (Auto) 0.20 K/uL (0-0.5) Basophils # (Auto) 0.05 K/uL (0-0.2) RDW Standard Deviation 43.1 fL (36.4-46.3) RDW Coefficient of Variation 13.7 % (11.5-14.5) Immature Granulocyte % (Auto) 0.4 % Immature Granulocyte # (Auto) 0.02 K/uL (0.00-0.02) Prothrombin Time 10.5 SECONDS (9.0-12.0) Prothromb Time International Ratio 1.0 (0.9-1.1) Activated Partial Thromboplast Time 26.4 SECONDS (21.0-31.0) Partial Thromboplastin Ratio 1.0 Anion Gap 8.0 mmol/L (3-11) Est Creatinine Clear Calc Drug Dose 49.7 ml/min Estimated GFR () 60.4 Estimated GFR (Non- 52.1 BUN/Creatinine Ratio 12.6 (10-20) Calcium Level 8.6 mg/dl (8.5-10.1) Total Bilirubin 1.0 mg/dl (0.2-1) Direct Bilirubin 0.2 mg/dl (0-0.2) Aspartate Amino Transf (AST/SGOT) 12 U/L (15-37) Alanine Aminotransferase (ALT/SGPT) 19 U/L (12-78) Alkaline Phosphatase 52 U/L (45-117) Troponin I < 0.015 ng/ml (0-0.045) Total Protein 7.0 gm/dl (6.4-8.2) Albumin 3.4 gm/dl (3.4-5.0) Lipase 170 U/L (73-393) Bedside Troponin I < 0.030 ng/ml (0-0.045) Laboratory results reviewed by me Medications Administered Medications (Trade) Dose Ordered Sig/Umesh Route Start Time Stop Time Status Last Admin Dose Admin Fentanyl Citrate (Fentanyl Inj) 25 mcg NOW ONCE IV 04/20/18 15:45 04/20/18 15:46 DC 04/20/18 16:01 25 MCG ECG Per My Interpretation Indication: chest pain Rate (beats per minute): 60 Rhythm: normal sinus Findings: LAFB, T-wave inversion (Nonspecific AVL), other (No ST elevation) Comparison ECG Date: 12/09/17 Change: no significant change ED Course 1504: The patient was evaluated in room C05. A complete history and physical exam was performed. 1537: I reevaluated the patient and he is still experiencing 4/10 chest pain. 1545: Ordered Fentanyl Injection 25 mcg IV. 1618: I reevaluated the patient. His chest pain is mildly improved to a 3/10 in severity. I discussed the results and possible evaluation for admission to rule out chest pain. He understands and agrees to the plan. I paged the Hospitalist. 1626: I discussed the patient's case with Dr. Kwok, [facility] [place] Hospitalist. He understands the patient's condition and agrees to accept the patient. The patient will be evaluated for further management and care. Medical Decision Differential Diagnosis includes: ACS, unstable angina, pneumonia, pneumothorax, dissection, PE, musculoskeletal chest wall pain, costochondritis. Patient presents with complaint of sudden onset chest pain around 1230 concerning for unstable angina and a gas especially given his history. On dual antiplatelet therapy at this time. Given additional aspirin and nitro without change. No trauma history. Does not seem infectious. Lower suspicion for PE. Does not seem consistent with dissection. Lower suspicion for gastric etiology. May be chest wall related as he does have some tenderness here. EKG without acute changes initially. Troponin was completed and negative. Moderate risk heart score. Believe that admission for rule out cardiac disease is warranted. No concerning neurological findings and a transient headache earlier in the patient with a history of migraines now resolved. Medication Reconcilliation Current Medication List: was personally reviewed by me Blood Pressure Screening Patient's blood pressure: Elevated blood pressure Blood pressure disposition: Elevated BP felt to be situational Consults Time Called: 1618 Consulting Physician: Dr. Kwok, [facility] [place] Hospitalist Returned Call: 1626 I discussed the patient's case with Dr. Kwok, [facility] [place] Hospitalist. He understands the patient's condition and agrees to accept the patient. The patient will be evaluated for further management and care. Impression Primary Impression: Chest pain Scribe Attestation The scribe's documentation has been prepared under my direction and personally reviewed by me in its entirety. I confirm that the note above accurately reflects all work, treatment, procedures, and medical decision making performed by me. Departure Information Dispostion Being Evaluated By Hospitalist Referrals Daryn Pettit M.D. (PCP) Problem Qualifiers Primary Impression: Chest pain Chest pain type: unspecified Qualified Codes: R07.9 - Chest pain, unspecified
--- NOTE | 2018-04-20 17:55 | History and Physical ---
History & Physical Date & Time of Service: Apr 20, 2018 at 17:18 Chief Complaint: Chest Pain Primary Care Physician: Daryn Pettit M.D. History of Present Illness Source: patient, hospital records, other 82 y/o M Hx HPL, HTN, COPD, Lung CA - resection in 1998, CAD - STEMI / PCI X 4 - multiple stents, hemiplegic migraines. The pt presents with L central CP which has been persistent since AM. He denies radiation of the pain, nausea/ vomiting, diaphoresis or SOB. Initial labs and EKG do not support acute ischemia. Past Medical/Surgical History 1) CAD - STEMI 06/26 - 2 drug-eluting stents in LAD - PCI of LAD proximal to prior stent - last cath in 2015 indicates 100 LAD stenosis at bifurcation 2) HTN 3) COPD 4) History of lung cancer: Non-small cell lung CA - resected in 1998. 5) Hyperlipidemia 6) Hemiplegic migraines - the pt was given TPA x 2 - 11/29 prior to the diagnosis Surgical 1) Multiple caths/stents 2) TKR Family History Cancer Diabetes mellitus Heart disease Hypertension Lung disease Social History Smoking Status: Former Smoker Drug Use: none Marital Status: Housing status: lives with family Occupational Status: retired Immunizations History of Influenza Vaccine: Yes History of Tetanus Vaccine?: Yes History of Pneumococcal: Yes History of Hepatitis B Vaccine: No Allergies Coded Allergies: Atorvastatin (Unverified Allergy, Unknown, ., 12/02/17) Cephalosporins (Verified Allergy, Unknown, 12/02/17) Fluticasone (Unverified Allergy, Unknown, ., 12/02/17) Fluvastatin (Unverified Allergy, Unknown, ., 12/02/17) Iodinated Diagnostic Agents (Verified Allergy, Unknown, `, 12/09/17) Lisinopril (Unverified Allergy, Unknown, ., 12/02/17) Oxycodone (Verified Allergy, Unknown, HIVES, 12/02/17) ABLE TO TAKE TYLENOL Penicillins (Verified Allergy, Unknown, 12/09/17) Rosuvastatin (Unverified Allergy, Unknown, ., 12/02/17) Salmeterol (Unverified Allergy, Unknown, ., 12/02/17) Home Medications Scheduled Aspirin (Aspirin Ec), 81 MG PO DAILY Carvedilol (Carvedilol), 3.125 MG PO BID Cholecalciferol (Vitamin D3), 1,000 INTER.UNIT PO QPM Clopidogrel (Plavix), 75 MG PO DAILY Losartan Potassium (Losartan Potassium), 25 MG PO DAILY Pravastatin Sod (Pravastatin Sodium), 10 MG PO DAILY Tiotropium [place] (Spiriva Respimat), 1 CAP INH QAM Verapamil HCl (Verapamil HCl ER), 180 MG PO QAM Scheduled PRN Albuterol Hfa (Ventolin Hfa), 2 PUFFS INH QID PRN for Wheezing Albuterol Sulf (Proventil 0.083% 2.5MG/3ML), 1 DOSE NEB Q6H PRN for Wheezing Nitroglycerin (Nitrostat), 0.4 MG UT UD PRN for Chest Pain Review of Systems Constitutional: No fever, No chills, No sweats Eyes: No worsening of vision ENT: No hearing loss, No nasal symptoms Respiratory: No cough, No sputum, No wheezing Cardiovascular: + chest pain, No orthopnea, No PND Abdomen: No pain, No nausea, No vomiting Musculoskeletal: No joint pain Genitourinary - Male: No hematuria, No dysuria Neurologic: No memory loss, No paralysis, No weakness Psychiatric: No depression symptoms Endocrine: No fatigue Hematologic / Lymphatic: No abnormal bleeding/bruising Integumentary: No rash Allergic / Immunologic: No environmental allergies Physical Exam Vital Signs Date Time Temp Pulse Resp B/P (MAP) Pulse Ox O2 Delivery O2 Flow Rate FiO2 04/20/18 16:57 61 18 127/74 95 Room Air 04/20/18 16:14 63 18 124/79 96 Room Air 04/20/18 15:18 65 04/20/18 15:15 97 Room Air 04/20/18 15:15 97 Room Air 04/20/18 15:15 36.5 66 18 137/78 97 Room Air General Appearance: WD/WN, no apparent distress Head: normocephalic ENT: normal ENT inspection, pharynx normal Neck: supple, no JVD Respiratory/Chest: chest non-tender, lungs clear, normal breath sounds Cardiovascular: regular rate, rhythm, no edema, no gallop Abdomen/GI: normal bowel sounds, non tender, soft Genitourinary - Male: normal male genitalia, normal phallus Back: normal inspection, no CVA tenderness Extremities/Musculoskelatal: normal inspection, no calf tenderness, normal capillary refill Neurologic/Psych: corrective therapist II-XII nml as tested, no motor/sensory deficits, alert, oriented x 3 Skin: normal color Diagnostics Laboratory Results Results Past 24 Hours Test 04/20/18 14:28 04/20/18 15:29 Range/Units White Blood Count 4.98 4.8-10.8 K/uL Red Blood Count 5.03 4.7-6.1 M/uL Hemoglobin 14.9 14.0-18.0 g/dL Hematocrit 43.6 42-52 % Mean Corpuscular Volume 86.7 80-100 fL Mean Corpuscular Hemoglobin 29.6 25-34 pg Mean Corpuscular Hemoglobin Concent 34.2 32-36 g/dl Platelet Count 155 130-400 K/uL Mean Platelet Volume 11.3 7.4-10.4 fL Neutrophils (%) (Auto) 58.3 % Lymphocytes (%) (Auto) 24.1 % Monocytes (%) (Auto) 12.2 % Eosinophils (%) (Auto) 4.0 % Basophils (%) (Auto) 1.0 % Neutrophils # (Auto) 2.90 1.4-6.5 K/uL Lymphocytes # (Auto) 1.20 1.2-3.4 K/uL Monocytes # (Auto) 0.61 0.11-0.59 K/uL Eosinophils # (Auto) 0.20 0-0.5 K/uL Basophils # (Auto) 0.05 0-0.2 K/uL RDW Standard Deviation 43.1 36.4-46.3 fL RDW Coefficient of Variation 13.7 11.5-14.5 % Immature Granulocyte % (Auto) 0.4 % Immature Granulocyte # (Auto) 0.02 0.00-0.02 K/uL Prothrombin Time 10.5 9.0-12.0 SECONDS Prothromb Time International Ratio 1.0 0.9-1.1 Activated Partial Thromboplast Time 26.4 21.0-31.0 SECONDS Partial Thromboplastin Ratio 1.0 Sodium Level 141 136-145 mmol/L Potassium Level 3.9 3.5-5.1 mmol/L Chloride Level 108 98-107 mmol/L Carbon Dioxide Level 25 21-32 mmol/L Anion Gap 8.0 3-11 mmol/L Blood Urea Nitrogen 16 7-18 mg/dl Creatinine 1.28 0.60-1.40 mg/dl Est Creatinine Clear Calc Drug Dose 49.7 ml/min Estimated GFR () 60.4 Estimated GFR (Non- 52.1 BUN/Creatinine Ratio 12.6 10-20 Random Glucose 69 70-99 mg/dl Calcium Level 8.6 8.5-10.1 mg/dl Total Bilirubin 1.0 0.2-1 mg/dl Direct Bilirubin 0.2 0-0.2 mg/dl Aspartate Amino Transf (AST/SGOT) 12 15-37 U/L Alanine Aminotransferase (ALT/SGPT) 19 12-78 U/L Alkaline Phosphatase 52 45-117 U/L Troponin I < 0.015 0-0.045 ng/ml Total Protein 7.0 6.4-8.2 gm/dl Albumin 3.4 3.4-5.0 gm/dl Lipase 170 73-393 U/L Bedside Troponin I < 0.030 0-0.045 ng/ml EKG LAFB - no ischemic changes Impression Assessment and Plan 82 y/o M Hx HPL, HTN, COPD, Lung CA - resection in 1998, CAD - STEMI / PCI X 4 - multiple stents, hemiplegic migraines. The pt presents with L central CP which has been persistent since AM. He denies radiation of the pain, nausea/ vomiting, diaphoresis or SOB. Initial labs and EKG do not support acute ischemia. 1) CP/CAD - high risk pt, although pain is atypical. We will assign to telemetry overnight for serial enzymes. We will continue ASA, Plavix, Statin, Carvedilol. 2) COPD - no evidence of exacerbation. Cont prescribed inhalers. 3) HPL - cont Fluvastatin 4) HTN - cont Verapamil, Carvedilol 5) Hemiplegic migraines - cont Verapamil Full code - Heparin prophylaxis Total time for this admit including review of labs, meds, imaging, records - discussion with pt and ER attending - 33 min Resuscitation Status VTE Prophylaxis Will order VTE Prophylaxis: Yes
[2018-04-20 18:42] VITALS: BP 184/92; PULSE 63; TEMP 36.4; O2SAT 96; Ht 182.9 cm; Wt 79.8 kg
[2018-04-20 19:13] VITALS: BP 148/79; PULSE 65; TEMP 36.6; O2SAT 94
[2018-04-20] MEDS: CARVEDILOL 3.125 MG TAB PO SCH (20:47)
[2018-04-20] MEDS ORDERED: IV FLUIDS COMPLETED PRN (21:00)
[2018-04-20] MEDS: HEPARIN SOD 5000 UNIT/0.5 ML CARP SQ SCH (22:11)
[2018-04-20] MEDS: MoRPHine SULFATE 4 MG/ML 1 ML CARP\\VIAL IV PRN (22:13)
[2018-04-20 23:40] VITALS: BP 142/78; PULSE 57; TEMP 36.5; O2SAT 97
[2018-04-21 03:40] VITALS: BP 136/82; PULSE 70; TEMP 36.4; O2SAT 96
[2018-04-21] MEDS: HEPARIN SOD 5000 UNIT/0.5 ML CARP SQ SCH ×2 (06:07→14:27)
[2018-04-21 07:22] VITALS: BP 152/95; PULSE 62; TEMP 36.5; O2SAT 97
[2018-04-21] MEDS: MoRPHine SULFATE 4 MG/ML 1 ML CARP\\VIAL IV PRN (07:31)
[2018-04-21] MEDS: CARVEDILOL 3.125 MG TAB PO SCH (08:22)
[2018-04-21] MEDS ORDERED: VERAPAMIL HCL 180 MG TABCR PO SCH (09:00)
[2018-04-21] MEDS ORDERED: CLOPIDOGREL BISULFATE 75 MG TAB PO SCH (09:00)
[2018-04-21] MEDS ORDERED: TIOTROPIUM BROMIDE 5 PUFF/90 MCG INH INH SCH ×2 (09:00)
[2018-04-21] MEDS ORDERED: ASPIRIN 81 MG ECTAB PO SCH (09:00)
[2018-04-21] MEDS ORDERED: PRAVASTATIN SOD 10 MG TAB PO SCH (09:00)
[2018-04-21] MEDS ORDERED: LOSARTAN POTASSIUM 25 MG TAB PO SCH (09:00)
[2018-04-21 11:15] VITALS: BP 125/73; PULSE 64; TEMP 36.3; O2SAT 95
[2018-04-21 15:21] VITALS: BP 152/78; PULSE 60; TEMP 36.3; O2SAT 97
--- NOTE | 2018-04-21 16:12 | DIAGNOSTIC IMAGING REPORT ---
L RIBS UNILATERAL WITH PA CHEST HISTORY: 82 years-old Male left breast pain, eval for fractured ribs acute left-sided atypical chest pain and breast pain COMPARISON: Chest radiograph 04/20/2018 TECHNIQUE: PA view the chest with 4 views of the left ribs FINDINGS: Chronic postoperative changes about the left lung with left hemidiaphragm elevation and left apical pleural thickening. Soft tissue prominence about the left hilum. Cardiac silhouette is upper limits of normal in size. Coronary arterial stent grafts noted. Atherosclerosis of the aorta. Chronic interstitial coarsening about the bilateral lungs. Degenerative changes of the shoulders and spine. No acute rib fracture identified. Healed chronic rib fractures about the lateral left fourth rib. IMPRESSION: 1. Chronic postsurgical changes about the left hemithorax without acute process. 2. No acute rib fracture or pneumothorax. The above report was generated using voice recognition software. It may contain grammatical, syntax or spelling errors. Electronically signed by: Santos Miller M.D. 04/21/2018 4:10 PM Dictated Date/Time: 04/21/2018 4:08 PM
[2018-04-21 16:35] VITALS: BP 152/78; PULSE 60; TEMP 36.3; O2SAT 97
[2018-04-21] MEDS ORDERED: VLTG EXT (16:36)
--- NOTE | 2018-04-21 16:43 | Discharge Instructions ---
Discharge Instructions Date of Service Apr 21, 2018. Admission Reason for Admission: Chest Pain Discharge Discharge Diagnosis / Problem: Chest pain - likely musculoskeletal; heart attack ruled out. Discharge Goals Goal(s): Learn about illness, Diagnostic testing, Therapeutic intervention Activity Recommendations Activity Limitations: as noted below Would avoid any heavy lifting over 20 pounds and any activity that makes your left chest wall worse (excessive pulling, pushing, etc). . Instructions / Follow-Up Instructions / Follow-Up From Dr. Mckeon: You were admitted to the hospital for left-sided chest wall pain. The pain was reproducible by pushing on the ribs/cartilage. Despite the pain lasting 36+ hours all of your blood work for the heart was normal/negative, your chest x-rays were negative, and your monitoring was normal. It is likely that this pain is musculoskeletal in origin (the muscles/ribs/ cartilage are sore). With that said, because of your known heart history, we would like to perform an outpatient stress test (nuclear stress test). Dr. Juan F Sahu plans to obtain this within the next week, possibly as early as this Thursday. For the chest wall pain please do the following - * tylenol - up to 1000mg every 8 hours as needed/desired for pain * diclofenac (voltaren) gel every 6 hours; apply 4 grams to the left chest wall each time * heating pad Dr. Sahu will be calling you with an appointment date/time regarding the stress test. None of your chronic medications were changed. Follow-up - With Dr. Sahu within 1 week Return to [facility] if - * your chest pain worsens despite doing the treatments noted above * you develop shortness of breath, wheezing, severe cough, etc * you develop fever greater than 100.5 degrees * any other concerns Current Hospital Diet Patient's current hospital diet: AHA Diet (Heart Healthy) Discharge Diet Recommended Diet: AHA Diet (Heart Healthy) Procedures Procedures Performed: rib x-rays -- left chest -- OLD fracture seen (4th rib) but no new fractures. no evidence of pneumonia. Pending Studies Studies pending at discharge: no Laboratory Results Lipid Panel Test 03/16/18 12:40 Range/Units Triglycerides Level 178 H 0-150 mg/dl Cholesterol Level 183 0-200 mg/dl HDL Cholesterol 34 mg/dl Cholesterol/HDL Ratio 5.4 LDL Cholesterol, Calculated 113 mg/dl Medical Emergencies . Who to Call and When: Medical Emergencies: If at any time you feel your situation is an emergency, please call 911 immediately. . Non-Emergent Contact Non-Emergency issues call your: Salvage Winder Call Non-Emergent contact if: your pain is not controlled, your pain is worsening, your pain is unusual for you, your pain is concerning you, you have any medication questions . . "Provider Documentation" section prepared by Zain Mckeon. .
[2018-04-21] MEDS ORDERED: DICLOFENAC SOD 1% GEL 100 GM TUBE EXT SCH (17:00)
--- NOTE | 2018-04-22 00:01 | CARDIOLOGY CONSULTATION ---
DATE OF CONSULTATION: 04/21/2018 CONSULTATION REQUESTED BY: Dr. Ayden Kwok REASON FOR CONSULTATION: Chest pain. HISTORY OF PRESENT ILLNESS: Mr. Singleton is a very pleasant 82-year-old man with a history of severe coronary artery disease known to me from the outpatient setting at prior hospitalizations, who presented yesterday with acute onset chest pain. The patient had been in his usual state of health until the morning of admission when developed a headache consistent with prior migraines. Later in the day, he developed substernal chest pain, which he said was reminiscent of prior pain he has had with his MIs. Pain persisted despite taking multiple nitroglycerin at home and EMS was contacted. The patient brought to [facility] ED where he was continuing to have active chest pain. His initial EKG showed no significant dynamic changes. His troponin was negative and remained negative with 3 serial checks. Overnight, the patient continued to have intermittent chest pain despite intermittent morphine. This morning states the pain persists, now 3/10 to 4/10. PAST MEDICAL HISTORY: 1. Coronary artery disease status post prior STEMI and multiple prior stents to LAD and first diagonal bifurcation. Last cardiac catheterization in June of 2016 showed the LAD to be occluded after the takeoff of the first diagonal which was largely free of disease. Otherwise, no significant disease in the remaining of the coronary arteries. 2. Hypertension. 3. Hyperlipidemia. 4. History of lung cancer status post lobectomy followed by [facility] pulmonology. 5. Complicated migraines complicated by acute focal neurologic symptoms, previously treated with TPA early in the year. 6. Recurrent epistaxis. 7. COPD. 8. Vitamin D deficiency. 9. Chronic osteoarthritis. PAST SURGICAL HISTORY: History of appendectomy, arthroscopy of left shoulder, cataract surgery, colonoscopy, knee replacement, and partial lobectomy. FAMILY HISTORY: Coronary artery disease, but denied any premature disease. SOCIAL HISTORY: Lives with his . He is a former smoker. Denies heavy alcohol. He is retired. REVIEW OF SYSTEMS: A 10-point review of systems completed and otherwise negative unless stated in HPI. PHYSICAL EXAMINATION: VITAL SIGNS: Temperature 36.3, pulse 60, blood pressure 152/78, he is satting 97% on room air. GENERAL: Patient appears comfortable in no acute distress. HEENT: Oropharynx is clear. Mucous membranes are moist. NECK: Supple with no lymphadenopathy. LUNGS: Clear to auscultation bilaterally. HEART: He had a regular rate and rhythm. No appreciable murmurs. ABDOMEN: Soft, nontender. EXTREMITIES: Warm. He had intact distal pulses. SKIN: Showed no rashes or lesions. NEUROLOGIC: Nonfocal. MUSCULOSKELETAL: He had tenderness to palpation over the anterior chest wall which reproduced his prior pain. PSYCHIATRIC: He is alert, oriented and appropriate. DIAGNOSTIC DATA: CBC within normal limits. Sodium 141, potassium 3.9, BUN 16, creatinine of 1.3. LFTs were within normal limits. Troponin was negative x3. Chest x-ray showed no acute cardiopulmonary process. X-ray of his ribs showed no acute rib fracture. EKG showed sinus rhythm with a left anterior fascicular block. T waves were peaked in V2 and V3, but unchanged from prior. No other significant ST abnormalities. IMPRESSION AND PLAN: 1. Chest pain - suspicion for musculoskeletal. 2. History of severe coronary artery disease with multiple prior PCIs. Known occluded mid left anterior descending. 3. Hypertension. 4. Dyslipidemia. 5. History of lung cancer status post lobectomy. 6. Complicated migraines. Mr. Singleton is here with more than 24 hours of constant chest pain with no signs of ischemia by EKG or cardiac enzymes. Suspicion at this point is relatively low that this is cardiac in nature and pain is in part reproducible by chest wall palpation. However, with patient's cardiac feel further ischemic evaluation is reasonable at some point and could be done as an outpatient. We discussed additional stress testing. Reviewed his prior echocardiogram images and feel that stress echo unlikely to be diagnostic. Would pursue nuclear stress test which cannot be obtained tomorrow and we will plan to obtain in 2 days on 04/23/2018. Otherwise, patient okay from cardiac standpoint for discharge today. Will continue with home cardiac regimen. Further recommendations pending findings of stress test on Thursday. Plan discussed with Dr. Mckeon. Thank you for consultation. VINOD
--- NOTE | 2018-04-22 07:39 | Discharge Summary ---
Discharge Summary Date of Service Apr 22, 2018. 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 5) Hyperlipidemia 6) Hemiplegic migraines Immunizations: Have You Had Influenza Vaccine: Yes History of Tetanus Vaccine?: Yes History of Pneumococcal: Yes History of Hepatitis B Vaccine: No Procedures: rib series, left - no evidence of acute fractures or other acute findings chest x-ray - no pneumonia Consultations: cardiology - Juan F Sahu MD Medication Reconciliation New Medications: Diclofenac Sod (Voltaren) 100 Appln/100 Gm Gel 4 GM EXT QID, #1 TUBE 0 Refills apply 4 grams to site of pain on left chest wall up to 4 times each day Continued Medications: Albuterol Hfa (Ventolin Hfa) 200 Puffs/73192 Mcg Aers 2 PUFFS INH QID PRN for Wheezing Albuterol Sulf (Proventil 0.083% 2.5MG/3ML) 2.5 Mg/3 Ml Nebu 1 DOSE NEB Q6H PRN for Wheezing INHALE THE CONTENTS OF ONE (3ML) VIAL IN THE NEBULIZER EVERY 6 HOURS NEEDED FOR WHEEZING Aspirin (Aspirin Ec) 81 Mg Tab 81 MG PO DAILY Carvedilol (Carvedilol) 3.125 Mg Tab 3.125 MG PO BID Cholecalciferol (Vitamin D3) 1,000 Unit Tab 1000 INTER.UNIT PO QPM, TAB Clopidogrel (Plavix) 75 Mg Tab 75 MG PO DAILY, TAB Losartan Potassium (Losartan Potassium) 25 Mg Tab 25 MG PO DAILY Nitroglycerin (Nitrostat) 0.4 Mg Tab 0.4 MG UT UD PRN for Chest Pain Pravastatin Sod (Pravastatin Sodium) 10 Mg Tab 10 MG PO DAILY Tiotropium [place] (Spiriva Respimat) 1.25 Mcg/Act Aer 1 CAP INH QAM Verapamil HCl (Verapamil HCl ER) 180 Mg Tabcr 180 MG PO QAM for 30 Days, #30 TAB Referrals At Discharge Follow up Referrals: [facility] Referral - Within 1 Week with Juan F Sahu MD Discharge Exam Physical Exam: General Appearance: no apparent distress ENT: pharynx normal Neck: no JVD Respiratory/Chest: lungs clear, no respiratory distress, no accessory muscle use, + pertinent finding (chest moderate-severely tender with palpation, left costal-chondral junction) Cardiovascular: regular rate, rhythm, no gallop, no murmur, normal peripheral pulses Abdomen / GI: normal bowel sounds, non tender, soft, no organomegaly Extremities: no pedal edema Neurologic/Psychiatric: alert, oriented x 3 Skin: no rash (on chest wall ) Hospital Course HISTORY OF PRESENT ILLNESS: 82yo male with history of hyperlipidemia, HTN, COPD, left-sided lung cancer - resection in 1998, CAD s/p STEMI / PCI X 4 - multiple stents, hemiplegic migraines. The patient presented with left sided chest pain which had been persistent since the morning of admission. He denied radiation of the pain, nausea/vomiting, diaphoresis or SOB. Initial labs and EKG did not support acute ischemia. HOSPITAL COURSE: The patient's telemetry, serial troponins, chest x-ray, left-sided rib series, and other lab studies were negative/normal while hospitalized. His pain persisted throughout the entire stay. The pain was quite reproducible on physical exam to palpation suggesting musculoskeletal etiology. He was started on voltaren gel for the pain. He was seen in consult by Dr. Juan F Sahu, cardiology. Dr. Sahu also felt that the pain was likely musculoskeletal in origin. However, given his known CAD, arrangements will be made for outpatient nuclear stress test to be complete. This will likely take place within 1 week of discharge. At discharge he will continue on the voltaren gel and was advised to use tylenol PRN and heat therapy. He was also asked to avoid heavy lifting and any other activity that could exacerbate the pain. Total Time Spent: Greater than 30 minutes This includes examination of the patient, discharge planning, medication reconciliation, and communication with other providers. Discharge Instructions Please refer to the electronic Patient Visit Report (Discharge Instructions) for additional information. Follow-Up with Dr. Juan F Sahu, cardiology, within 1 week for outpatient stress test Additional Copies To Daryn Pettit M.D.; Juan F Sahu MD
== END 2018-04-21 17:19 | disposition home or self-care (01) ==
LOC: C.EDC 15:03 → EDBD 15:03 → C.2T 16:41 → ENRESERV 16:55
PROVIDERS: ADMIT Internal Medicine; ATTEND Internal Medicine
DX: R07.9 Chest pain, unspecified (principal); I25.10 Atherosclerotic heart disease of native coronary artery without angina pectoris; I10 Essential (primary) hypertension; J44.9 Chronic obstructive pulmonary disease, unspecified; Z85.118 Personal history of other malignant neoplasm of bronchus and lung; E78.5 Hyperlipidemia, unspecified; G43.409 Hemiplegic migraine, not intractable, without status migrainosus; Z79.02 Long term (current) use of antithrombotics/antiplatelets; Z79.899 Other long term (current) drug therapy; Z95.5 Presence of coronary angioplasty implant and graft; M19.90 Unspecified osteoarthritis, unspecified site; Z87.891 Personal history of nicotine dependence; Z88.5 Allergy status to narcotic agent

== ENCOUNTER 2019-09-19 10:05 | Inpatient (IN) ==
[2019-09-19] MEDS ORDERED: ACETAMINOPHEN 500 MG TAB PO STA (11:42)
[2019-09-19] MEDS ORDERED: SODIUM CHLORIDE 0.9% 1000ML 1,000 ML IV SCH (11:45)
[2019-09-19] MEDS ORDERED: ALBUTEROL 0.083% NEBU SOLN 3 ML VIAL NEB STA (11:47)
[2019-09-19 12:18] LABS: Basophils # (auto) 0.01 K/uL (0-0.2); Basophils % (auto) 0.1 %; Hematocrit (blood only) 47.5 % (42-52); Hemoglobin 16.3 g/dL (14.0-18.0); Immature Granulocytes # (auto) 0.17 K/uL (0.00-0.02); Immature Granulocytes % (auto) 1.3 %; Lymphocytes # (auto) 0.84 K/uL (1.2-3.4); Lymphocytes % (auto) 6.3 %; Mean Corpuscular Hemoglobin 30.9 pg (25-34); Mean Corpuscular Hgb Conc 34.3 g/dL (32-36); Mean Corpuscular Volume 90.1 fL (80-100); Mean Platelet Volume 11.1 fL (7.4-10.4); Monocytes # (auto) 0.73 K/uL (0.11-0.59); Monocytes % (auto) 5.4 %; Neutrophils # (auto) 11.68 K/uL (1.4-6.5); Neutrophils % (auto) 86.9 %; Platelet Count 134 K/uL (130-400); RDW Coefficient of Variation 14.3 % (11.5-14.5); RDW Standard Deviation 47.2 fL (36.4-46.3); Red Blood Count 5.27 M/uL (4.7-6.1); White Blood Count 13.43 K/uL (4.8-10.8)
--- NOTE | 2019-09-19 12:28 | XRay Report ---
XR chest 1V portable CLINICAL HISTORY: 84 years-old Male presenting with weakness. TECHNIQUE: Portable upright AP view of the chest was obtained. COMPARISON: 08/23/2018. FINDINGS: Atherosclerosis of the aortic arch. Cardiac silhouette normal in size. Redemonstration of architectur al distortion of the left lung with paramediastinal/left suprahilar surgical clips. Interval developm ent of diffuse left lung opacity new from prior exam. Chronic low lung volume on the left likely [place] cating prior lobectomy. An underlying left pleural effusion may be present. No pneumothorax. Right yolis ng and pleural space clear. Degenerative changes of the thoracic spine. Upper abdomen normal. IMPRESSION: 1. Diffuse left lung infiltrate new from prior concerning for pneumonia. This should be followed to resolution. Electronically signed by: Jayson Malcolm M.D. 09/19/2019 12:26 PM
[2019-09-19 12:45] LABS: Alanine Aminotransferase 20 U/L (12-78); Albumin Globulin Ratio 0.7 (0.9-2); Albumin Level 3.5 gm/dl (3.4-5.0); Alkaline Phosphatase 64 U/L (45-117); Aspartate Aminotransferase 18 U/L (15-37); BUN Creatinine Ratio 12.3 (10-20); Bilirubin,Total 3.1 mg/dl (0.2-1); Blood Urea Nitrogen 20 mg/dl (7-18); Calcium 9.8 mg/dl (8.5-10.1); Carbon Dioxide 22 mmol/L (21-32); Chloride 104 mmol/L (98-107); Est GFR (African American) 45.8; Est GFR (Non-African American) 39.6; Globulin 4.7 gm/dl (2.5-4.0); Glucose 104 mg/dl (70-99); Potassium 3.9 mmol/L (3.5-5.1); Sodium 136 mmol/L (136-145); Total Protein 8.2 gm/dl (6.4-8.2); Troponin I < 0.015 ng/ml (0-0.045)
--- NOTE | 2019-09-19 13:02 | CT Scan Report ---
CT OF THE HEAD WITHOUT CONTRAST CLINICAL HISTORY: Headache. Weakness. Dizzy. COMPARISON STUDY: Head CT December 10, 2017. MRA of the head July 18, 2019. CT DOSE: 614.27 mGy.cm TECHNIQUE: Helical axial images of the head were obtained without IV contrast. Automated exposure con trol was utilized for the study. A dose lowering technique was utilized adhering to the principles o f ALARA. FINDINGS: No acute intracranial hemorrhage, midline shift or mass effect is present. The ventricular system is unremarkable. The basilar cisterns are patent. No extra-axial collections are present. Ther e are no findings to suggest acute dural sinus thrombosis or acute territorial infarct. No significan t calvarial abnormalities are present. Visualized portions of the sinuses and mastoid air cells are c lear. IMPRESSION: No acute intracranial findings. Electronically signed by: Dalton Moreno M.D. 09/19/2019 1:00 PM
[2019-09-19] MEDS: LEVOFLOXACIN/D5W 750 MG/150 ML BAG IV SCH (14:18)
[2019-09-19 14:35] LABS: Appearance Urine Clear (Clear); Bacteria Urine Automated Negative (Negative); Bilirubin Urine Negative (Negative); Blood Urine 1+ (Negative); Color Urine Dark Yellow; Epithelial Cell Urine Auto 20-30 /lpf (0-5); Glucose Urine UA Negative (Negative); Ketones Urine Negative (Negative); Leukocyte Esterase Urine Negative (Negative); Nitrite Urine Negative (Negative); Protein Urine 2+ (Negative); RBC Urine Automated 0-4 /hpf (0-4); Specific Gravity Urine 1.024 (1.000-1.030); Urobilinogen Urine Negative (Negative); pH Urine 5.5 (4.5-7.5)
--- NOTE | 2019-09-19 14:48 | CT Scan Report ---
CT OF THE CHEST WITHOUT IV CONTRAST CLINICAL HISTORY: Shortness of breath. Left sided pneumonia. History of lung cancer. COMPARISON STUDY: Chest CT July 21, 2014. Chest radiograph September 29, 2019 [address] DOSE: 315.97 mGy.cm TECHNIQUE: Axial images of the chest were obtained without IV contrast. Images were reviewed in the axial, sagittal, and coronal planes. IV contrast was not administered for this examination. Automat ed exposure control was utilized for the study. A dose lowering technique was utilized adhering to t he principles of ALARA. FINDINGS: Postoperative findings within the left hemithorax are noted. Extensive left lung consolida tion is noted. This is new since chest radiograph of August 23, 2018. No cavitation is present. Tra ce left pleural fluid is noted. A left pleural thickening is unchanged since CT of July 21, 2014. There are numerous calcified and noncalcified pleural plaques. Severe emphysema is noted. No enlarged thoracic lymph nodes are present. There is a trace pericardial effusion. Extensive coronary artery c alcification is present. No suspicious osseous lesions are noted. Old left-sided rib deformities are present. Upper abdomen is unremarkable. Appearance of the airways is similar to CT of July 21 4 with paramediastinal opacity. IMPRESSION: 1. Extensive left lung consolidation status post left lower lobectomy. The findings favor pneumonia. Post treatment radiographs to ensure resolution are recommended. Trace left pleural effusion. No cavi tation. 2. Left pleural thickening which is unchanged since CT of July 21, 2014 and is likely benign. 3. Severe emphysema. Electronically signed by: Dalton Moreno M.D. 09/19/2019 2:46 PM
--- NOTE | 2019-09-19 15:46 | Emergency Department Note ---
Entered by Chapincito Lentz acting as a scribe for Kati Albarran MD History of Present Illness General Chief complaint: Weakness Stated complaint: WEAK,SHAKING,DIZZY,UNSTEADY,COUGHING Source: patient and family (daughter) History of Present Illness Onset (ago): day(s) 2 Location: left and right Pain Consistency: + constant Maximum Pain Intensity: 5 Quality: + other (lethargy) Associated symptoms: + cough (yellow mucus), + headaches (slight), + nausea/vomiting, + shortness of breath ("a little" ) and + other (+dizziness; +tremor/shakes; +droopy eyes); no chest pain The patient is an 84 year old male, with past medical history of lung cancer, COPD, and CAD, who presents to the Emergency Room with complaints of constant lethargy over the last couple days, according to the patients daughter. The patient also reports he felt dizzy yesterday upon waking up and getting up that made him wobble around. The daughter states the patient vomited up his breakfast yesterday. The daughter states the patient had tremor/shakes yes terday, and the patient notes that the last time the patient had tremor/shakes, the patient had pneumonia. The daughter notes she gave the patient Benadryl which stopped the tremors/shakes. The daughter reports that the patients lethargy has been so bad it was hard to get the patient up to drink water yesterday afternoon. She states that during supper the patient improved some by eating half a bowl of soup and drinking almost an entire bottle of water. She states the patient has not thrown up since the initial episode. The daughter states the patient has also had a cough with yellow mucus. She also notes the patients eyes have been droopy. The patient reports he had a slight headache to the top of his head, but he notes it has resolved currently. He also notes he is a little of short of breath. The patient denies chest pain. The daughter also notes the patient did not take his daily medication this morning. She state the patients blood pressure was low yesterday, and after consulting Dr. Sabillon, the daughter states she was told to not give the patient his blood pressure medication yesterday. Home Medications Home Medications Medication Instructions Recorded Confirmed Type albuterol sulfate [Ventolin HFA] 2 puff INHALATION QID PRN 09/14/18 12/09/19 History aspirin 81 mg PO QAM 06/25/18 09/19/19 History cholecalciferol (vitamin D3) 1,000 unit PO BID 06/25/18 09/19/19 History [Vitamin D3] nitroglycerin [Nitrostat] 1 tab SUBLINGUAL UD PRN 06/25/18 09/19/19 History carvedilol 3.125 mg tablet 3.125 mg PO BID #180 tab 09/05/19 09/19/19 Rx clopidogrel [Plavix] 75 mg PO HS 09/19/19 09/19/19 History fluticasone furoate-vilanterol 1 inh INHALATION DAILY@1500 09/19/19 09/19/19 History [Breo Ellipta] topiramate 25 mg PO QAM 09/19/19 09/19/19 History verapamil 120 mg PO QAM 09/19/19 09/19/19 History Allergies Allergy/AdvReac Type Severity Reaction Status Date / Time atorvastatin Allergy Mild MUSCLE Verified 09/19/19 12:35 ACHES fluvastatin Allergy Mild MUSCLE Verified 09/19/19 12:35 ACHES Iodinated Contrast Media Allergy Mild Hives Verified 09/19/19 12:35 lisinopril Allergy Mild Cough Verified 09/19/19 12:35 Penicillins Allergy Mild Rash Verified 09/19/19 12:35 rosuvastatin Allergy Mild MUSCLE Verified 09/19/19 12:35 ACHES salmeterol Allergy Mild Rash Verified 09/19/19 12:35 cephalexin [From Keflex] Allergy Unknown Verified 09/19/19 12:35 Cephalosporins Allergy Unknown Rash Verified 09/19/19 12:35 fluticasone Allergy Unknown Rash Verified 09/19/19 12:35 oxycodone Allergy Unknown HIVES Verified 09/19/19 12:35 pravastatin Allergy Unknown Verified 09/19/19 12:35 prednisone Allergy Unknown Verified 09/19/19 12:35 Past Med/Surg History Medical History Abnormal EKG (Deleted) CAD (coronary artery disease) (Acute) Cancer of lung (Resolved) 1998 LOBECTOMY. 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 Unstable angina (Deleted) Vitamin D deficiency (Chronic) Surgical History History of cardiac catheterization (Chronic ~2016) 2016 TX WITH [address] SABILLON LAST SEEN 06/23/18 Hx of cataract surgery S/P appendectomy S/P excision of lipoma (Resolved) S/P lobectomy of lung LEFT S/P total knee arthroplasty LEFT Stented coronary artery (Deleted) Family History Brother Cancer Hypertension Sister Cancer Hypertension Diabetes Mother Hypertension Diabetes Unknown Coronary heart disease Father Coronary heart disease Daughter Breast cancer Social History Preferred Language: Indonesian Communication Ability: Effective Director Sports Required: No Beliefs That Will Affect Care: None Current Living Situation: Spouse Other Information That Helps Us Care for You: No Feels Safe at Home: Yes Safety Concerns: Feels Safe At This Time Smoking Status: Former smoker Do You Dip or Chew Tobacco: No ; Smoking End Date: 07/23/1995 ; Second Hand Exposure: No ; Tobacco Cessation Education Requested by Patient: No Hx Alcohol Use: No Hx Substance Use: No Review of Systems See HPI for pertinent positives & negatives. and A total of 10 systems reviewed and were otherwise negative Physical Exam Vital Signs Vital Signs - 24 hr 09/19/19 10:32 09/19/19 11:32 09/19/19 11:33 Temperature 37.5 C Temperature Source Oral Pulse Rate - Lying Pulse Rate - Sitting Pulse Rate - Standing Pulse Rate 111 H Pulse Rate [Apical] 109 H Pulse Rate from SpO2 Sensor Respiratory Rate 16 22 Respiratory Effort / Characteristics Non-Labored Respiratory Depth Normal Blood Pressure - Lying Blood Pressure - Sitting Blood Pressure- Standing Blood Pressure 145/78 H Blood Pressure [Left Arm] 144/82 H Blood Pressure Mean 100 Blood Pressure Mean [Left Arm] 102 Blood Pressure Position Sitting Pulse Oximetry 92 96 96 Oxygen Delivery Method Room Air Room Air Sepsis Recent Fever Within 48 Hours Yes Sepsis New/Unexplained Change in Mental Status No Sepsis Action Taken by Nursing No Action Required 09/19/19 12:11 09/19/19 12:17 09/19/19 12:30 Temperature Temperature Source Pulse Rate - Lying 108 H Pulse Rate - Sitting 111 H Pulse Rate - Standing 113 H Pulse Rate 108 H Pulse Rate [Apical] 105 H Pulse Rate from SpO2 Sensor 108 H Respiratory Rate 18 31 H Respiratory Effort / Characteristics Non-Labored Spontaneous Respiratory Depth Blood Pressure - Lying 145/76 H Blood Pressure - Sitting 131/68 Blood Pressure- Standing 112/56 L Blood Pressure 110/67 Blood Pressure [Left Arm] Blood Pressure Mean 94 Blood Pressure Mean [Left Arm] Blood Pressure Position Pulse Oximetry 97 94 Oxygen Delivery Method Room Air Room Air Sepsis Recent Fever Within 48 Hours Sepsis New/Unexplained Change in Mental Status Sepsis Action Taken by Nursing 09/19/19 13:00 09/19/19 13:30 09/19/19 14:01 Temperature Temperature Source Pulse Rate - Lying Pulse Rate - Sitting Pulse Rate - Standing Pulse Rate 105 H 101 H 101 H Pulse Rate [Apical] Pulse Rate from SpO2 Sensor 101 H Respiratory Rate 12 12 14 Respiratory Effort / Characteristics Respiratory Depth Blood Pressure - Lying Blood Pressure - Sitting Blood Pressure- Standing Blood Pressure 109/65 129/63 129/60 Blood Pressure [Left Arm] Blood Pressure Mean 80 94 82 Blood Pressure Mean [Left Arm] Blood Pressure Position Pulse Oximetry 94 Oxygen Delivery Method Room Air Sepsis Recent Fever Within 48 Hours Sepsis New/Unexplained Change in Mental Status Sepsis Action Taken by Nursing 09/19/19 14:34 09/19/19 14:36 09/19/19 15:00 Temperature Temperature Source Pulse Rate - Lying Pulse Rate - Sitting Pulse Rate - Standing Pulse Rate 101 H 99 H Pulse Rate [Apical] Pulse Rate from SpO2 Sensor 101 H 101 H 99 H Respiratory Rate 28 H 36 H Respiratory Effort / Characteristics Respiratory Depth Blood Pressure - Lying Blood Pressure - Sitting Blood Pressure- Standing Blood Pressure 129/68 126/71 130/74 Blood Pressure [Left Arm] Blood Pressure Mean 80 83 91 Blood Pressure Mean [Left Arm] Blood Pressure Position Pulse Oximetry 93 94 95 Oxygen Delivery Method Room Air Room Air Room Air Sepsis Recent Fever Within 48 Hours Sepsis New/Unexplained Change in Mental Status Sepsis Action Taken by Nursing 09/19/19 15:30 Temperature Temperature Source Pulse Rate - Lying Pulse Rate - Sitting Pulse Rate - Standing Pulse Rate 98 H Pulse Rate [Apical] Pulse Rate from SpO2 Sensor 97 H Respiratory Rate 18 Respiratory Effort / Characteristics Respiratory Depth Blood Pressure - Lying Blood Pressure - Sitting Blood Pressure- Standing Blood Pressure 119/68 Blood Pressure [Left Arm] Blood Pressure Mean 78 Blood Pressure Mean [Left Arm] Blood Pressure Position Pulse Oximetry 96 Oxygen Delivery Method Room Air Sepsis Recent Fever Within 48 Hours Sepsis New/Unexplained Change in Mental Status Sepsis Action Taken by Nursing Vital signs reviewed. General: Well-appearing, elderly, in no significant distress. HEENT: No scleral icterus, PERRLA, neck supple. Atraumatic. Cardiovascular: Regular rate and rhythm, no extra sounds. Pulmonary: Crackles at the bases bilaterally. Abdomen: Soft, nontender, nondistended, positive bowel sounds. Musculoskeletal: Atraumatic, no peripheral edema. Neurologic: Patient awake alert and oriented x 3, full strength in all 4 extremities. Cranial nerves 2 through 12 grossly intact. Neurologically intact. Negative pronator drift. Intact finger to nose. Skin: Warm, dry, no rash Course Course 1140: Past medical records reviewed. The patient was evaluated in room C5. A complete history and physical exam was performed. 1255: I reevaluated and updated the patient on hsi case. 1356: I reviewed the patient's case with Dr. Calle-Hospitalist [facility]. He will evaluate the patient for further management. Dr. Calle wants a CT Chest completed. 1409: I updated the patient and his family on the treatment plan. Consultations Consultation #1: I reviewed the patient's case with Dr. [facility]. He will evaluate the patient for further management. Dr. Calle wants a CT Chest completed. Time: 13:56 Administered Medications Acetaminophen (Tylenol) 650 mg PO Q4H PRN PRN Reason: Pain or Fever Stop: 10/19/19 16:36 Last Admin: 09/21/19 07:28 Dose: 650 mg Documented by: [id number] Admin: 09/19/19 22:27 Dose: 650 mg Documented by: [id number] Aspirin (Ecotrin Ectab) 81 mg PO QAM [facility] Stop: 10/20/19 08:59 Last Admin: 09/21/19 08:38 Dose: 81 mg Documented by: [id number] Admin: 09/20/19 08:29 Dose: 81 mg Documented by: [id number] Carvedilol (Coreg) 3.125 mg PO BID [facility] Stop: 10/19/19 20:59 Last Admin: 09/21/19 08:38 Dose: 3.125 mg Documented by: [id number] Admin: 09/20/19 20:29 Dose: 3.125 mg Documented by: [id number] Admin: 09/20/19 08:29 Dose: 3.125 mg Documented by: [id number] Admin: 09/19/19 20:35 Dose: 3.125 mg Documented by: [id number] Clopidogrel Bisulfate (Plavix) 75 mg PO HS [facility] Stop: 10/19/19 20:59 Last Admin: 09/20/19 20:29 Dose: 75 mg Documented by: [id number] Admin: 09/19/19 20:35 Dose: 75 mg Documented by: [id number] Enoxaparin Sodium (Lovenox) 30 mg SQ Q24H [facility] Stop: 10/19/19 16:59 Last Admin: 09/20/19 17:45 Dose: 30 mg Documented by: [id number] Admin: 09/19/19 18:04 Dose: 30 mg Documented by: [id number] Levofloxacin/Dextrose (Levaquin/D5w) 750 mg in 150 mls @ 100 mls/hr IV Q24H [facility]; Protocol Stop: 09/26/19 12:59 Last Admin: 09/21/19 12:45 Dose: 100 mls/hr Documented by: [id number] Infusion: 09/20/19 15:30 Dose: 0 mls/hr Documented by: [id number] Admin: 09/20/19 14:02 Dose: 100 mls/hr Documented by: [id number] Infusion: 09/19/19 15:48 Dose: 0 mls/hr Documented by: [id number] Admin: 09/19/19 14:18 Dose: 100 mls/hr Documented by: [id number] Lactobacillus Acidophilus (Floranex) 4 tab PO QIDM [facility] Stop: 10/21/19 11:59 Last Admin: 09/21/19 12:44 Dose: 4 tab Documented by: [id number] Miscellaneous (Order Awaiting Action) 1 ea N/A QS [facility] Stop: 10/19/19 17:29 Last Admin: 09/21/19 08:38 Dose: Not Given Documented by: [id number] Admin: 09/21/19 08:11 Dose: Not Given Documented by: [id number] Admin: 09/20/19 15:05 Dose: Not Given Documented by: [id number] Admin: 09/20/19 08:30 Dose: Not Given Documented by: [id number] Admin: 09/20/19 00:27 Dose: Not Given Documented by: [id number] Admin: 09/19/19 17:33 Dose: Not Given Documented by: [id number] Ondansetron HCl (Zofran) 4 mg IV Q6H PRN PRN Reason: Nausea Stop: 10/19/19 16:36 Last Admin: 09/19/19 19:03 Dose: 4 mg Documented by: [id number] [facility] [place]: 10/20/19 08:59 Last Admin: 09/21/19 08:37 Dose: 25 mg Documented by: [id number] Admin: 09/20/19 08:29 Dose: 25 mg Documented by: [id number] Verapamil HCl (Calan Sr) 120 mg PO [facility] Stop: 10/20/19 08:59 Last Admin: 09/21/19 08:38 Dose: 120 mg Documented by: [id number] Admin: 09/20/19 08:29 Dose: 120 mg Documented by: [id number] Vitamin D (Vitamin D3) 1,000 units PO BID [facility] Stop: 10/19/19 20:59 Last Admin: 09/21/19 08:37 Dose: 1,000 units Documented by: [id number] Admin: 09/20/19 20:30 Dose: 1,000 units Documented by: [id number] Admin: 09/20/19 08:29 Dose: 1,000 units Documented by: [id number] Admin: 09/19/19 20:36 Dose: 1,000 units Documented by: [id number] Discontinued Medications Acetaminophen (Tylenol) 1,000 mg PO NOW STA Stop: 09/19/19 11:43 Last Admin: 09/19/19 12:06 Dose: 1,000 mg Documented by: [id number] Albuterol (Ventolin 0.083% 2.5mg/3ml) 2.5 mg NEB NOW STA Stop: 09/19/19 11:48 Last Admin: 09/19/19 12:16 Dose: 2.5 mg Documented by: [id number] Sodium Chloride (Nss 1000ml) 1,000 mls @ 125 mls/hr IV .Q8H [facility] Stop: 09/19/19 19:44 Last Infusion: 09/19/19 17:26 Dose: 0 mls/hr Documented by: [id number] Admin: 09/19/19 12:09 Dose: 125 mls/hr Documented by: [id number] Lactated Ringer's (Lr) 1,000 mls @ 80 mls/hr IV .[id number] [facility] Stop: 10/19/19 16:36 Last Infusion: 09/21/19 08:12 Dose: 0 mls/hr Documented by: [id number] Admin: 09/21/19 05:40 Dose: 80 mls/hr Documented by: [id number] Infusion: 09/21/19 05:35 Dose: 80 mls/hr Documented by: [id number] Admin: 09/20/19 17:05 Dose: 80 mls/hr Documented by: [id number] Infusion: 09/20/19 17:04 Dose: 0 mls/hr Documented by: [id number] Admin: 09/20/19 05:08 Dose: 80 mls/hr Documented by: [id number] Infusion: 09/20/19 05:08 Dose: 80 mls/hr Documented by: [id number] Admin: 09/19/19 17:02 Dose: 80 mls/hr Documented by: [id number] Medical Decision Making Differential Diagnosis Differential diagnosis: Etiologies such as metabolic, infection, hypo/hyperglycemia, electrolyte abnormalities, cardiac sources, intracerebral event, toxicologic, neurologic, as well as others were entertained. Medical Records Attestation: I reviewed the patient's medical records. Home Medications Current Medication List: was personally reviewed by me Laboratory Data Attestation: I reviewed the patient's lab results. Result diagrams: 09/21/19 05:55 09/21/19 05:55 Lab Results 09/19/19 09/19/19 09/19/19 Range/Units 12:03 12:07 12:07 WBC 13.43 H (4.8-10.8) K/uL RBC 5.27 (4.7-6.1) M/uL Hgb 16.3 (14.0-18.0) g/dL Hct 47.5 (42-52) % MCV 90.1 (80-100) fL MCH 30.9 (25-34) pg MCHC 34.3 (32-36) g/dL RDW Std Deviation 47.2 H (36.4-46.3) fL RDW Coeff of Falguni 14.3 (11.5-14.5) % Plt Count 134 (130-400) K/uL MPV 11.1 H (7.4-10.4) fL Immature Gran % (Auto) 1.3 % Neut % (Auto) 86.9 % Lymph % (Auto) 6.3 % Cla[place]orne % (Auto) 5.4 % Eos % (Auto) 0.0 % Baso % (Auto) 0.1 % Immature Gran # (Auto) 0.17 H (0.00-0.02) K/uL Neut # (Auto) 11.68 H (1.4-6.5) K/uL Lymph # (Auto) 0.84 L (1.2-3.4) K/uL Cla[place]orne # (Auto) 0.73 H (0.11-0.59) K/uL Eos # (Auto) 0.00 (0-0.5) K/uL Baso # (Auto) 0.01 (0-0.2) K/uL Sodium (136-145) mmol/L Potassium (3.5-5.1) mmol/L Chloride (98-107) mmol/L Carbon Dioxide (21-32) mmol/L Anion Gap (3-11) BUN (7-18) mg/dl Creatinine (0.6-1.4) mg/dl Est Cr Clr Drug Dosing Est GFR ( Amer) Est GFR (Non-Af Amer) BUN/Creatinine Ratio (10-20) Glucose (70-99) mg/dl POC Glucose 103 H (70-99) Lactate (0.4-2.0) mmol/L Calcium (8.5-10.1) mg/dl Magnesium Cancelled Total Bilirubin (0.2-1) mg/dl AST (15-37) U/L ALT (12-78) U/L Alkaline Phosphatase (45-117) U/L Troponin I (0-0.045) ng/ml Total Protein (6.4-8.2) gm/dl Albumin (3.4-5.0) gm/dl Globulin (2.5-4.0) gm/dl Albumin/Globulin Ratio (0.9-2) TSH (0.300-4.500) uIu/ml Specimen Hemolysis Urine Color Urine Appearance (Clear) Urine pH (4.5-7.5) Ur Specific Hewitt (1.000-1.030) Urine Protein (Negative) Urine Glucose (UA) (Negative) Urine Ketones (Negative) Urine Blood (Negative) Urine Nitrite (Negative) Urine Bilirubin (Negative) Urine Urobilinogen (Negative) Ur Leukocyte Esterase (Negative) Urine WBC (Auto) (0-5) /hpf Urine RBC (Auto) (0-4) /hpf U Hyaline Cast (Auto) (0-5) /lpf U Epithel Cells (Auto) (0-5) /lpf Urine Bacteria (Auto) (Negative) 09/19/19 09/19/19 09/19/19 Range/Units 12:07 13:45 14:20 WBC (4.8-10.8) K/uL RBC (4.7-6.1) M/uL Hgb (14.0-18.0) g/dL Hct (42-52) % MCV (80-100) fL MCH (25-34) pg MCHC (32-36) g/dL RDW Std Deviation (36.4-46.3) fL RDW Coeff of Falguni (11.5-14.5) % Plt Count (130-400) K/uL MPV (7.4-10.4) fL Immature Gran % (Auto) % Neut % (Auto) % Lymph % (Auto) % Claiborne % (Auto) % Eos % (Auto) % Baso % (Auto) % Immature Gran # (Auto) (0.00-0.02) K/uL Neut # (Auto) (1.4-6.5) K/uL Lymph # (Auto) (1.2-3.4) K/uL Claiborne # (Auto) (0.11-0.59) K/uL Eos # (Auto) (0-0.5) K/uL Baso # (Auto) (0-0.2) K/uL Sodium 136 (136-145) mmol/L Potassium 3.9 (3.5-5.1) mmol/L Chloride 104 (98-107) mmol/L Carbon Dioxide 22 (21-32) mmol/L Anion Gap 9.0 (3-11) BUN 20 H (7-18) mg/dl Creatinine 1.59 H (0.6-1.4) mg/dl Est Cr Clr Drug Dosing Not Reportable Est GFR ( Amer) 45.8 Est GFR (Non-Af Amer) 39.6 BUN/Creatinine Ratio 12.3 (10-20) Glucose 104 H (70-99) mg/dl POC Glucose (70-99) Lactate 2.0 (0.4-2.0) mmol/L Calcium 9.8 (8.5-10.1) mg/dl Magnesium 2.0 Total Bilirubin 3.1 H (0.2-1) mg/dl AST 18 (15-37) U/L ALT 20 (12-78) U/L Alkaline Phosphatase 64 (45-117) U/L Troponin I < 0.015 (0-0.045) ng/ml Total Protein 8.2 (6.4-8.2) gm/dl Albumin 3.5 (3.4-5.0) gm/dl Globulin 4.7 H (2.5-4.0) gm/dl Albumin/Globulin Ratio 0.7 L (0.9-2) TSH 1.020 (0.300-4.500) uIu/ml Specimen Hemolysis Urine Color Dark Yellow Urine Appearance Clear (Clear) Urine pH 5.5 (4.5-7.5) Ur Specific Hewitt 1.024 (1.000-1.030) Urine Protein 2+ H (Negative) Urine Glucose (UA) Negative (Negative) Urine Ketones Negative (Negative) Urine Blood 1+ H (Negative) Urine Nitrite Negative (Negative) Urine Bilirubin Negative (Negative) Urine Urobilinogen Negative (Negative) Ur Leukocyte Esterase Negative (Negative) Urine WBC (Auto) 1-5 (0-5) /hpf Urine RBC (Auto) 0-4 (0-4) /hpf U Hyaline Cast (Auto) 10-30 H (0-5) /lpf U Epithel Cells (Auto) 20-30 H (0-5) /lpf Urine Bacteria (Auto) Negative (Negative) Imaging Data Radiologist's Impression: Radiology results as stated below per my review and the radiologist's interpretation: CT OF THE HEAD WITHOUT CONTRAST CLINICAL HISTORY: Headache. Weakness. Dizzy. COMPARISON STUDY: Head CT December 10, 2017. MRA of the head July 18, 2019. CT DOSE: 614.27 mGy.cm TECHNIQUE: Helical axial images of the head were obtained without IV contrast. Automated exposure control was utilized for the study. A dose lowering technique was utilized adhering to the principles of ALARA. FINDINGS: No acute intracranial hemorrhage, midline shift or mass effect is p resent. The ventricular system is unremarkable. The basilar cisterns are patent. No extra-axial collections are present. There are no findings to suggest acute dural sinus thrombosis or acute territorial infarct. No significant calvarial abnormalities are present. Visualized portions of the sinuses and mastoid air cells are clear. IMPRESSION: No acute intracranial findings. Electronically signed by: Dalton Moreno M.D. 09/19/2019 1:00 PM XR chest 1V portable CLINICAL HISTORY: 84 years-old Male presenting with weakness. TECHNIQUE: Portable upright AP view of the chest was obtained. COMPARISON: 08/23/2018. FINDINGS: Atherosclerosis of the aortic arch. Cardiac silhouette normal in size. Redemonstration of architectural distortion of the left lung with para mediastinal/left suprahilar surgical clips. Interval development of diffuse left lung opacity new from prior exam. Chronic low lung volume on the left likely indicating prior lobectomy. An underlying left pleural effusion may be present. No pneumothorax. Right lung and pleural space clear. Degenerative changes of the thoracic spine. Upper abdomen normal. IMPRESSION: 1. Diffuse left lung infiltrate new from prior concerning for pneumonia. This should be followed to resolution. Electronically signed by: Jayson Malcolm M.D. 09/19/2019 12:[address] OF THE CHEST WITHOUT IV CONTRAST CLINICAL HISTORY: Shortness of breath. Left sided pneumonia. History of lung cancer. COMPARISON STUDY: Chest CT July 21, 2014. Chest radiograph September 29, 2019 and August 23, 2018. CT DOSE: 315.97 mGy.cm TECHNIQUE: Axial images of the chest were obtained without IV contrast. Images were reviewed in the axial, sagittal, and coronal planes. IV contrast was not administered for this examination. Automated exposure control was utilized for the study. A dose lowering technique was utilized adhering to the principles of ALARA. FINDINGS: Postoperative findings within the left hemithorax are noted. Extensive left lung consolidation is noted. This is new since chest radiograph of August 23, 2018. No cavitation is present. Trace left pleural fluid is noted. A left pleural thickening is unchanged since CT of July 21, 2014. There are numerous calcified and noncalcified pleural plaques. Severe emphysema is noted. No enlarged thoracic lymph nodes are present. There is a trace pericardial effusion. Extensive coronary artery calcification is present. No suspicious osseous lesions are noted. Old left-sided rib deformities are present. Upper abdomen is unremarkable. Appearance of the airways is similar to CT of July 21, 2014 with paramediastinal opacity. IMPRESSION: 1. Extensive left lung consolidation status post left lower lobectomy. The findings favor pneumonia. Post treatment radiographs to ensure resolution are recommended. Trace left pleural effusion. No cavitation. 2. Left pleural thickening which is unchanged since CT of July 21, 2014 and is likely benign. 3. Severe emphysema. Electronically signed by: Dalton Moreno M.D. 09/19/2019 2:46 PM ECG Data Attestation: I personally reviewed and interpreted this ECG as follows: Indication: + weakness Rate (beats per minute): 109 Rhythm: + sinus tachycardia ECG Intervals/blocks: + Left anterior fascicular block and + Normal QT-c ECG Findings: + LVH and + Other (QRS widening; repolarization abnormalities; ); no PACs and no PVCs Blood Pressure Blood Pressure Findings: Elevated blood pressure Blood Pressure Disposition: elevated BP felt to be situational MDM Narrative This pt was evaluated and appeared to be in no distress. IV access was obtained and lab work was drawn. Pt was placed on the night monitor and found to be in ST with LAF. CXR reveals a diffuse L lung infiltrate. Lactate is 2, blood cultures pending. IVF were ordered and IV levaquin administered. It was confirmed with pt and family that pt has not recently been on antibiotics. Pt was d/w the hospitalist service for further management. Pt and family are aware and agree. Impression & Plan Pneumonia Discharge Plan Visit Data *Final* Discharge Date/Time: 09/19/19 16:24 Chief Complaint: Weakness Stated Complaint: WEAK,SHAKING,DIZZY,UNSTEADY,COUGHING ED Provider: Kati Albarran Discharge Problem: Pneumonia Patient Disposition: Admitted As Inpatient Discharge Instructions Interventions: ED Discharge Assessment Last Done: 09/19/19 16:24 Discharge Problem: Pneumonia Qualifiers: Pneumonia type: due to unspecified organism Laterality: unspecified laterality Lung location: unspecified part of lung Qualified Code(s): J18.9 - Pneumonia, unspecified organism The scribe's documentation has been prepared under my direction and personally reviewed by me in its entirety. I confirm that the note above accurately reflects all work, treatment, procedures, and medical decision making performed by me.
--- NOTE | 2019-09-19 15:53 | History & Physical Report ---
Date of Service September 19, 2019 Assessment & Plan (1) Pneumonia: 84-year-old male was admitted on 19 September 2019 for pneumonia and reports of recent decreased activity. Pneumonia, underlying pulmonary emphysema and history of NSC lung cancer (chemo + radiation + 1999 left lobectomy): Acute worsening of overall respiratory status in the past 24 hours. Previously reported dizziness, headache, and generalized lethargy seems to have greatly improved. Tm 101 yesterday. - At home is on Brio Ellipta and albuterol as needed. - In ED, afebrile, borderline tachycardic, not tachypneic, normotensive with 94% SpO2 on room air. WBC 13. Lactate 2.0. EKG sinus tachy 109 with LAFB. TnI ne gative. CT head non-acute. CT chest noted extensive left lung consolidation favoring pneumonia (see full report). Blood cultures sent. - In ED, treated with NS IVF, Tylenol, albuterol neb, and Levaquin. Presently on room air. - For now, will continue on Levaquin. Keep home brio. Albuterol nebs as needed. Ordered sputum culture and urine legionella. Elevated creatinine: Admit Cr 1.59 (comparison Cr 1.54 in April), BUN 20. UA positive for protein, epi, and casts. Daughter is convinced patient does not remain well-hydrated. No noted formal prior dx of renal disease. - Will keep IVF going and recheck in AM. Elevated total bilirubin: Admit T bili 3.1 (comparison 1.6 in April). Remaining LFTs normal. Wonder if its stress-induced but cancer is on the ddx as well. - Will order direct and indirect level testing as well as a RUQ u/s. Ongoing medical issues: - Hypertension, hyperlipidemia, previous STEMI s/p stenting x 4: Continue home aspirin, Coreg, Plavix, and verapamil. - Complicated migraine (left hemiparesis), cerebral aneurysm: Followed by neurology. Continue home Topamax and verapamil. - Vitamin D deficiency: Continue home vitamin D supplementation. Code status: DNR/DNI (confirmed with patient and family). Diet: Regular. DVT prophy: Lovenox 30 mg daily. PT/OT: Deferred. Disbo: Admit to med tele. (2) H/O: lung cancer: (3) COPD (chronic obstructive pulmonary disease): (4) Elevated serum creatinine: (5) Total bilirubin, elevated: (6) Hypertension: (7) Dyslipidemia: (8) CAD (coronary artery disease): (9) Complicated migraine: (10) Vitamin D deficiency: History of Present Illness Primary Care Provider: Loan Zafar PA-C 84-year-old male presents with his and daughter. Majority of history is from the daughter, though the patient is quite awake, alert, pleasantly conversational, and does not appear in immediate distress. Both the patient and daughter note that he had the relatively fast onset of multiple symptoms yesterday to include a cough productive of yellowish non- bloody mucus, generalized headache, dizziness, feeling of decreased overall strength, and minimal p.o. intake. Highest temperature was 101 yesterday. Daughter states that he also had some mild bilateral upper arm "tremor" which she considers to be a telltale sign of impending infection, with last similar episode back in May. May also was last hospital stay and round of antibiotics. On further review of systems, patient denies any chest pain or heart concerns similar to his previous cardiac work-ups. He did have one episode of emesis yesterday but family is rather convinced he did not aspirate. He did tolerate some food later in the day yesterday. Denies any diarrhea or abdominal pain. No other acute patient or family concerns. Of note, the patient has a history of non-small cell lung cancer for which he underwent chemotherapy, radiation, and left lobe resection back in 1998. He says no known cancerous issues since. - Past medical history includes lung cancer, migraines, cerebral aneurysm, left neck neuroma, vitamin D deficiency, hyperlipidemia, hypertension, COPD, - Past surgical history includes cardiac cath, cataract surgery, appendectomy, left lung lobectomy, left total knee replacement, seroma following lipoma excision. - Social history includes previously smoking until lung surgery. Denies alcohol use. Lives at home with spouse. 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 Allergies Allergy/AdvReac Type Severity Reaction Status Date / Time atorvastatin Allergy Mild MUSCLE Verified 09/19/19 12:35 ACHES fluvastatin Allergy Mild MUSCLE Verified 09/19/19 12:35 ACHES Iodinated Contrast Media Allergy Mild Hives Verified 09/19/19 12:35 lisinopril Allergy Mild Cough Verified 09/19/19 12:35 Penicillins Allergy Mild Rash Verified 09/19/19 12:35 rosuvastatin Allergy Mild MUSCLE Verified 09/19/19 12:35 ACHES salmeterol Allergy Mild Rash Verified 09/19/19 12:35 cephalexin [From Keflex] Allergy Unknown Verified 09/19/19 12:35 Cephalosporins Allergy Unknown Rash Verified 09/19/19 12:35 fluticasone Allergy Unknown Rash Verified 09/19/19 12:35 oxycodone Allergy Unknown HIVES Verified 09/19/19 12:35 pravastatin Allergy Unknown Verified 09/19/19 12:35 prednisone Allergy Unknown Verified 09/19/19 12:35 Home Medications Home Medications Medication Instructions Recorded Confirmed Type albuterol sulfate [Ventolin HFA] 2 puff INHALATION QID PRN 06/25/18 09/19/19 History aspirin 81 mg PO QAM 06/25/18 09/19/19 History cholecalciferol (vitamin D3) 1,000 unit PO BID 06/25/18 09/19/19 History [Vitamin D3] nitroglycerin [Nitrostat] 1 tab SUBLINGUAL UD PRN 06/25/18 09/19/19 History carvedilol 3.125 mg tablet 3.125 mg PO BID #180 tab 09/05/19 09/19/19 Rx clopidogrel [Plavix] 75 mg PO HS 09/19/19 09/19/19 History fluticasone furoate-vilanterol 1 inh INHALATION DAILY@1500 09/19/19 09/19/19 History [Breo Ellipta] topiramate 25 mg PO QAM 09/19/19 09/19/19 History verapamil 120 mg PO QAM 09/19/19 09/19/19 History Past Med/Surg History Medical History Abnormal EKG (Deleted) CAD (coronary artery disease) (Acute) Cancer of lung (Resolved) 1998 LOBECTOMY. 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 Unstable angina (Deleted) Vitamin D deficiency (Chronic) Surgical History History of cardiac catheterization (Chronic ~2016) 2016 HI WITH [address] SABILLON LAST SEEN 06/23/18 Hx of cataract surgery S/P appendectomy S/P excision of lipoma (Resolved) S/P lobectomy of lung LEFT S/P total knee arthroplasty LEFT Stented coronary artery (Deleted) Family History Brother Cancer Hypertension Sister Cancer Hypertension Diabetes Mother Hypertension Diabetes Unknown Coronary heart disease Father Coronary heart disease Daughter Breast cancer Social History Preferred Language: Lao Communication Ability: Effective Supervisor Nut Processing Required: No Beliefs That Will Affect Care: None Current Living Situation: Spouse Other Information That Helps Us Care for You: No Feels Safe at Home: Yes Safety Concerns: Feels Safe At This Time Smoking Status: Former smoker Do You Dip or Chew Tobacco: No ; Smoking End Date: 07/23/1995 ; Second Hand Exposure: No ; Tobacco Cessation Education Requested by Patient: No Hx Alcohol Use: No Hx Substance Use: No Review of Systems Review of Systems: Constitutional: Positive acute fever, generalized weakness, and fatigue. Eyes: Denies any visual loss or diplopia ENT: Denies any ear/nose/throat pain or difficulty speaking or swallowing Respiratory: Positive acute cough and dyspnea. Cardiovascular: Denies any chest pain or feeling of edema Gastrointestinal: Denies any abdominal pain. Positive nausea and single episode vomiting. Denies diarrhea. Musculoskeletal: Denies any acute extremity pains, myalgias, or focal weakness Skin: Denies any known acute rashes or lesions Neuro: Positive now resolved headache. Denies acute focal weakness (but positive generalized weakness) or numbness, or difficulties with speech or swallow. Physical Exam Physical Exam: GENERAL: Awake, alert, well-appearing, in no acute distress. Presently speaking in full sentences on room air. HENT: Normocephalic, atraumatic. Oropharynx unremarkable. EYES: Normal conjunctiva. Sclera non-icteric. NECK: Inspection normal. Non-tender. Supple and full ROM. No nuchal rigidity. CARDIAC: +S1S2 borderline but regular tachycardia, no murmurs. RESPIRATORY: Decreased breath sounds and some rhonchi in the left field. Right field sounds clear. Normal respiratory effort. On room air. GI: +BS, soft, non-distended. No tenderness to palpation. No rebound or guarding. Negative Gerard sign. EXTREMITIES: No pedal edema or calf tenderness. Moving all extremities naturally and easily. NEURO: No gross neuro deficits. No present tremors. Answering questions quickly and easily, though does not seem to recall all recent events the same as his daughter. Results & Data Vital Signs (Past 12 Hours) Vital Signs Temp Pulse Pulse Resp BP BP Pulse Ox 09/19/19 15:30 98 H 18 119/68 96 09/19/19 15:00 99 H 36 H 130/74 95 09/19/19 14:36 101 H 28 H 126/71 94 09/19/19 14:34 129/68 93 09/19/19 14:01 101 H 14 129/60 94 09/19/19 13:30 101 H 12 129/63 09/19/19 13:00 105 H 12 109/65 09/19/19 12:30 108 H 31 H 110/67 94 09/19/19 12:17 105 H 18 97 09/19/19 11:33 96 09/19/19 11:32 109 H 22 144/82 H 96 09/19/19 10:32 37.5 C 111 H 16 145/78 H 92 Laboratory Results 09/19/19 09/19/19 09/19/19 Range/Units 14:20 13:45 12:07 WBC (4.8-10.8) K/uL RBC (4.7-6.1) M/uL Hgb (14.0-18.0) g/dL Hct (42-52) % MCV (80-100) fL MCH (25-34) pg MCHC (32-36) g/dL RDW Std Deviation (36.4-46.3) fL RDW Coeff of Falguni (11.5-14.5) % Plt Count (130-400) K/uL MPV (7.4-10.4) fL Immature Gran % (Auto) % Neut % (Auto) % Lymph % (Auto) % [place] % (Auto) % Eos % (Auto) % Baso % (Auto) % Immature Gran # (Auto) (0.00-0.02) K/uL Neut # (Auto) (1.4-6.5) K/uL Lymph # (Auto) (1.2-3.4) K/uL [place] # (Auto) (0.11-0.59) K/uL Eos # (Auto) (0-0.5) K/uL Baso # (Auto) (0-0.2) K/uL Sodium 136 (136-145) mmol/L Potassium 3.9 (3.5-5.1) mmol/L Chloride 104 (98-107) mmol/L Carbon Dioxide 22 (21-32) mmol/L Anion Gap 9.0 (3-11) BUN 20 H (7-18) mg/dl Creatinine 1.59 H (0.6-1.4) mg/dl Est Cr Clr Drug Dosing Not Reportable Est GFR ( Amer) 45.8 Est GFR (Non-Af Amer) 39.6 BUN/Creatinine Ratio 12.3 (10-20) Glucose 104 H (70-99) mg/dl POC Glucose (70-99) Lactate 2.0 (0.4-2.0) mmol/L Calcium 9.8 (8.5-10.1) mg/dl Magnesium 2.0 Total Bilirubin 3.1 H (0.2-1) mg/dl AST 18 (15-37) U/L ALT 20 (12-78) U/L Alkaline Phosphatase 64 (45-117) U/L Troponin I < 0.015 (0-0.045) ng/ml Total Protein 8.2 (6.4-8.2) gm/dl Albumin 3.5 (3.4-5.0) gm/dl Globulin 4.7 H (2.5-4.0) gm/dl Albumin/Globulin Ratio 0.7 L (0.9-2) TSH 1.020 (0.300-4.500) uIu/ml Specimen Hemolysis Urine Color Dark Yellow Urine Appearance Clear (Clear) Urine pH 5.5 (4.5-7.5) Ur Specific [place] 1.024 (1.000-1.030) Urine Protein 2+ H (Negative) Urine Glucose (UA) Negative (Negative) Urine Ketones Negative (Negative) Urine Blood 1+ H (Negative) Urine Nitrite Negative (Negative) Urine Bilirubin Negative (Negative) Urine Urobilinogen Negative (Negative) Ur Leukocyte Esterase Negative (Negative) Urine WBC (Auto) 1-5 (0-5) /hpf Urine RBC (Auto) 0-4 (0-4) /hpf U Hyaline Cast (Auto) 10-30 H (0-5) /lpf U Epithel Cells (Auto) 20-30 H (0-5) /lpf Urine Bacteria (Auto) Negative (Negative) 09/19/19 09/19/19 09/19/19 Range/Units 12:07 12:07 12:03 WBC 13.43 H (4.8-10.8) K/uL RBC 5.27 (4.7-6.1) M/uL Hgb 16.3 (14.0-18.0) g/dL Hct 47.5 (42-52) % MCV 90.1 (80-100) fL MCH 30.9 (25-34) pg MCHC 34.3 (32-36) g/dL RDW Std Deviation 47.2 H (36.4-46.3) fL RDW Coeff of Falguni 14.3 (11.5-14.5) % Plt Count 134 (130-400) K/uL MPV 11.1 H (7.4-10.4) fL Immature Gran % (Auto) 1.3 % Neut % (Auto) 86.9 % Lymph % (Auto) 6.3 % [place] % (Auto) 5.4 % Eos % (Auto) 0.0 % Baso % (Auto) 0.1 % Immature Gran # (Auto) 0.17 H (0.00-0.02) K/uL Neut # (Auto) 11.68 H (1.4-6.5) K/uL Lymph # (Auto) 0.84 L (1.2-3.4) K/uL [place] # (Auto) 0.73 H (0.11-0.59) K/uL Eos # (Auto) 0.00 (0-0.5) K/uL Baso # (Auto) 0.01 (0-0.2) K/uL Sodium (136-145) mmol/L Potassium (3.5-5.1) mmol/L Chloride (98-107) mmol/L Carbon Dioxide (21-32) mmol/L Anion Gap (3-11) BUN (7-18) mg/dl Creatinine (0.6-1.4) mg/dl Est Cr Clr Drug Dosing Est GFR ( Amer) Est GFR (Non-Af Amer) BUN/Creatinine Ratio (10-20) Glucose (70-99) mg/dl POC Glucose 103 H (70-99) Lactate (0.4-2.0) mmol/L Calcium (8.5-10.1) mg/dl Magnesium Cancelled Total Bilirubin (0.2-1) mg/dl AST (15-37) U/L ALT (12-78) U/L Alkaline Phosphatase (45-117) U/L Troponin I (0-0.045) ng/ml Total Protein (6.4-8.2) gm/dl Albumin (3.4-5.0) gm/dl Globulin (2.5-4.0) gm/dl Albumin/Globulin Ratio (0.9-2) TSH (0.300-4.500) uIu/ml Specimen Hemolysis Urine Color Urine Appearance (Clear) Urine pH (4.5-7.5) Ur Specific [place] (1.000-1.030) Urine Protein (Negative) Urine Glucose (UA) (Negative) Urine Ketones (Negative) Urine Blood (Negative) Urine Nitrite (Negative) Urine Bilirubin (Negative) Urine Urobilinogen (Negative) Ur Leukocyte Esterase (Negative) Urine WBC (Auto) (0-5) /hpf Urine RBC (Auto) (0-4) /hpf U Hyaline Cast (Auto) (0-5) /lpf U Epithel Cells (Auto) (0-5) /lpf Urine Bacteria (Auto) (Negative) Medications Administered Sodium Chloride (Nss 1000ml) 1,000 mls @ 125 mls/hr IV .Q8H DALLIN Stop: 09/19/19 19:44 Last Admin: 09/19/19 12:09 Dose: 125 mls/hr Documented by: [id number] Levofloxacin/Dextrose (Levaquin/D5w) 750 mg in 150 mls @ 100 mls/hr IV Q24H DALLIN Stop: 09/26/19 12:59 Last Infusion: 09/19/19 15:48 Dose: 0 mls/hr Documented by: [id number] Admin: 09/19/19 14:18 Dose: 100 mls/hr Documented by: [id number] Discontinued Medications Acetaminophen (Tylenol) 1,000 mg PO NOW STA Stop: 09/19/19 11:43 Last Admin: 09/19/19 12:06 Dose: 1,000 mg Documented by: [id number] Albuterol (Ventolin 0.083% 2.5mg/3ml) 2.5 mg NEB NOW STA Stop: 09/19/19 11:48 Last Admin: 09/19/19 12:16 Dose: 2.5 mg Documented by: [id number] Code Status & VTE Plan Code Status DNR/DNI. VTE Prophylaxis Plan VTE Prophylaxis will be ordered: Yes Supervising Physician Co-Signing Physician Notes I personally interviewed and examined the patient. I agree with history of present illness and physical exam mentioned above, I also performed my own history taking and examination. Past medical history and review of system has been obtained by myself I reviewed all pertinent labs and studies Reviewed current medications I discussed and formulated of the assessment and plan mentioned above. Please refer to the Summary mentioned below. 84 years old man with past medical history of non-small cell cancer status post chemo/radiation/lumpectomy on 1998. Patient presented to the hospital with generalized weakness, fatigue, shortness of breath, productive cough and dizziness. Daughter at bedside reported a temperature to follow in 1. Chest x- ray revealed multilobar left lung pneumonia. Patient was started empirically on antibiotics Levaquin, will order sputum culture urine Legionella, ordered MRSA nostril screening. Admitted for further evaluation management, General Appearance: not in acute distress Eyes: normal Sclerae, extraocular muscle intact ENT: hearing grossly normal Neck: supple Respiratory/Chest: Decreased air entry bilaterally, significant bilateral scattered rhonchi more left than right, minimal wheezing bilateral Cardiovascular: regular rate, rhythm, no murmur Abdomen: non tender, soft, no masses Extremities: no edema musculoskeletal: no significant swelling or inflammation in any joint Neurologic/Psychiatric: Awake alert oriented times place and person moves all extremities sensation intact cranial nerves II-12 appear to be intact Skin: normal color, warm/dry, no rash Wesam Moustafa Lee MD, [facility] Resident Activity Tracking Resident Involvement: Resident Care Provided Care Provided: Adult Hospital Medicine (1) Pneumonia Laterality: unspecified laterality Lung location: unspecified part of lung Pneumonia type: due to unspecified organism Qualified Code(s): J18.9 - Pneumonia, unspecified organism
[2019-09-19] MEDS ORDERED: ALBUTEROL HFA 8 GM INHALER INH PRN (16:37)
[2019-09-19] MEDS ORDERED: ONDANSETRON INJ 2 MG/ML 2 ML VIAL IV PRN (16:37)
[2019-09-19] MEDS ORDERED: NITROGLYCERIN SL 0.4 MG/TAB TAB SL PRN (16:37)
[2019-09-19] MEDS: LACTATED RINGER'S 1,000 ML IV SCH (17:02)
[2019-09-19] MEDS: ENOXAPARIN INJ 30 MG/0.3 ML SYR SQ SCH (18:04)
[2019-09-19] MEDS: carvediloL 3.125 MG TAB PO SCH (20:35)
[2019-09-19] MEDS: CLOPIDOGREL BISULFATE 75 MG TAB PO SCH (20:35)
[2019-09-19] MEDS: CHOLECALCIFEROL 1,000 UNITS TAB PO SCH (20:36)
--- NOTE | 2019-09-19 21:14 | Billing Data ---
Coding Level of Care Code 14570 Initial Inpt Care Lvl 3
[2019-09-19] MEDS: ACETAMINOPHEN 325 MG TAB PO PRN (22:27)
[2019-09-20] MEDS: LACTATED RINGER'S 1,000 ML IV SCH ×2 (05:08→17:05)
[2019-09-20 06:54] LABS: Basophils # (auto) 0.01 K/uL (0-0.2); Basophils % (auto) 0.1 %; Eosinophils # (auto) 0.01 K/uL (0-0.5); Eosinophils % (auto) 0.1 %; Hematocrit (blood only) 38.1 % (42-52); Hemoglobin 12.8 g/dL (14.0-18.0); Immature Granulocytes # (auto) 0.03 K/uL (0.00-0.02); Immature Granulocytes % (auto) 0.4 %; Lymphocytes % (auto) 8.9 %; Mean Corpuscular Hemoglobin 29.9 pg (25-34); Mean Corpuscular Hgb Conc 33.6 g/dL (32-36); Mean Platelet Volume 11.6 fL (7.4-10.4); Monocytes # (auto) 0.57 K/uL (0.11-0.59); Monocytes % (auto) 7.2 %; Neutrophils # (auto) 6.58 K/uL (1.4-6.5); Neutrophils % (auto) 83.3 %; Platelet Count 110 K/uL (130-400); RDW Coefficient of Variation 14.4 % (11.5-14.5); RDW Standard Deviation 46.8 fL (36.4-46.3); Red Blood Count 4.28 M/uL (4.7-6.1)
[2019-09-20 07:10] LABS: BUN Creatinine Ratio 15.9 (10-20); Bilirubin Direct 0.4 mg/dl (0-0.2); Calcium 8.7 mg/dl (8.5-10.1); Creatinine Clr Calc Pharmacy 45.5 ml/min; Est GFR (African American) 53.9; Est GFR (Non-African American) 46.5; Potassium 3.6 mmol/L (3.5-5.1)
[2019-09-20 07:14] LABS: Bilirubin,Total 1.7 mg/dl (0.2-1)
--- NOTE | 2019-09-20 07:27 | Ultrasound Report ---
US abdomen limited CLINICAL HISTORY: 84 years-old Male presenting with RUQ u/s eval for mass vs infection (elev T bili). TECHNIQUE: Real-time grayscale and limited color Doppler ultrasound imaging of the abdomen limited to the right upper quadrant was performed. COMPARISON: 05/20/2014. FINDINGS: Pancreas: Multicystic lesion in the pancreatic head measuring 4.1 x 2.7 x 3.2 cm. This is in the javier on of the prior ill-defined low-density lesion from 2014. Remainder of the pancreatic parenchyma suzanna sly normal. No evidence of pancreatic ductal dilatation. Liver: Mildly hyperechogenic parenchyma, although the right hemidiaphragm remains visible, likely ind icating mild steatosis. The liver measures 16.3 cm in maximal sagittal dimension. No sonographic evid ence of hepatic mass. Main portal vein patent with normal directional flow. Biliary: No intrahepatic biliary ductal dilatation. Common bile duct measures up to 5 mm in diameter. Gallbladder: Top normal gallbladder wall thickness. Hyperechogenicity of the gallbladder wall with ri ng down artifact may suggest the presence of adenomyomatosis. No cholelithiasis or pathologic gallbla dder distention. Right kidney: Multiple prominent cysts as on prior CT, the largest measuring 10.3 cm. No gross eviden ce of hydronephrosis. Ascites: None. Other: None. IMPRESSION: 1. No cholelithiasis or biliary ductal dilatation. 2. Suggestion of mild hepatic steatosis. Correlate with liver function tests to exclude steatohepati tis as a cause for abdominal pain. 3. 4.1 cm cystic pancreatic head lesion. This was likely present on prior CT in 2014 but may have be en smaller at that time. Further evaluation with dedicated pancreas protocol CT or MR could be consid ered as a neoplastic etiology of this lesion is possible. 4. Right renal cysts. The report will be called/faxed according to standard departmental protocol. Electronically signed by: Jayson Malcolm M.D. 09/20/2019 7:26 AM
[2019-09-20] MEDS: ASPIRIN 81 MG ECTAB PO SCH (08:29)
[2019-09-20] MEDS: carvediloL 3.125 MG TAB PO SCH ×2 (08:29→20:29)
[2019-09-20] MEDS: CHOLECALCIFEROL 1,000 UNITS TAB PO SCH ×2 (08:29→20:30)
[2019-09-20] MEDS: TOPIRAMATE 25 MG TAB PO SCH (08:29)
[2019-09-20] MEDS: VERAPAMIL HCL 120 MG TABCR PO SCH (08:29)
[2019-09-20] MEDS: LEVOFLOXACIN/D5W 750 MG/150 ML BAG IV SCH (14:02)
[2019-09-20] MEDS: ENOXAPARIN INJ 30 MG/0.3 ML SYR SQ SCH (17:45)
[2019-09-20] MEDS: CLOPIDOGREL BISULFATE 75 MG TAB PO SCH (20:29)
[2019-09-21] MEDS: LACTATED RINGER'S 1,000 ML IV SCH (05:40)
[2019-09-21 06:19] LABS: Basophils # (auto) 0.01 K/uL (0-0.2); Basophils % (auto) 0.2 %; Eosinophils # (auto) 0.03 K/uL (0-0.5); Eosinophils % (auto) 0.6 %; Hematocrit (blood only) 36.9 % (42-52); Hemoglobin 12.5 g/dL (14.0-18.0); Immature Granulocytes # (auto) 0.02 K/uL (0.00-0.02); Immature Granulocytes % (auto) 0.4 %; Lymphocytes # (auto) 0.63 K/uL (1.2-3.4); Lymphocytes % (auto) 11.8 %; Mean Corpuscular Hgb Conc 33.9 g/dL (32-36); Mean Corpuscular Volume 88.5 fL (80-100); Mean Platelet Volume 11.2 fL (7.4-10.4); Monocytes # (auto) 0.51 K/uL (0.11-0.59); Monocytes % (auto) 9.6 %; Neutrophils # (auto) 4.14 K/uL (1.4-6.5); Neutrophils % (auto) 77.4 %; Platelet Count 119 K/uL (130-400); RDW Coefficient of Variation 14.2 % (11.5-14.5); RDW Standard Deviation 46.3 fL (36.4-46.3); Red Blood Count 4.17 M/uL (4.7-6.1); White Blood Count 5.34 K/uL (4.8-10.8)
[2019-09-21 06:48] LABS: Albumin Level 2.2 gm/dl (3.4-5.0); BUN Creatinine Ratio 15.2 (10-20); Calcium 8.5 mg/dl (8.5-10.1); Est GFR (African American) 61.9; Est GFR (Non-African American) 53.4; Potassium 3.4 mmol/L (3.5-5.1)
[2019-09-21 06:53] LABS: Albumin Globulin Ratio 0.6 (0.9-2); Globulin 3.9 gm/dl (2.5-4.0); Total Protein 6.1 gm/dl (6.4-8.2)
[2019-09-21] MEDS: ACETAMINOPHEN 325 MG TAB PO PRN (07:28)
--- NOTE | 2019-09-21 08:00 | Hospitalist Progress Note ---
Date of Service September 20, 2019 Assessment & Plan (1) Pneumonia: Extensive left lung consolidation in setting of prior left lobe lobectomy. Given improvement on levaquin will continue on this. Likely can be switched to oral tomorrow and potentially discharged. (2) Hemoptysis: noted by patient. will continue to observe for now. (3) H/O: lung cancer: s/p left lobe lobectomy (4) COPD (chronic obstructive pulmonary disease): Does not appear to have an acute exacerbation Severe emphysema on CT Continue home inhaler - Breo Ellipta (5) Elevated serum creatinine: Appears back to his baseline. (6) Total bilirubin, elevated: Suspect related to vomiting episode. No RUQ pain on exam. US liver (7) Hypertension: Stable. Continue home meds (8) CAD (coronary artery disease): Continue ASA, plavix, carvedilol. Unclear why he is not on statin. (9) Complicated migraine: No current migraine. Continue topiramate and verapamil for prophylaxis (10) Vitamin D deficiency: Continue vitamin D supplementation (11) DVT prophylaxis: Lovenox 30mg SQ daily (12) Discharge planning issues: PT, OT prior to discharge Subjective Patient feels much improved since admission. Reports quick decline over the course of a day associated with a vomiting and shaking episode when he suddenly became unwell. He was and is not particularly short of breath Reports 1-2 episodes of COPD exacerbations requiring antibiotics or Kenolog injection in the last year. Does not have a rescue pack of prednisone. Review of Systems Review of Systems: All systems reviewed & are unremarkable except as noted in HPI & below Physical Exam Constitutional: well developed, well nourished and + well hydrated; no acute distress Neck: normal visual inspection and trachea midline Respiratory: normal respiratory effort; no respiratory distress, no labored breathing and does not use accessory muscles Auscultation: + diminished lung sounds (left base) and + crackles (left sided throughout); no rales, no rhonchi and no wheezes Cardiovascular: Rate/Rhythm: regular rate and regular rhythm Heart Sounds: + murmur (RUSB 2/6 soft) Vessels: no JVD Extremities: normal capillary refill; no pedal edema Gastrointestinal (Abdomen): normal bowel sounds, soft, nontender, no hepatosplenomegaly Musculoskeletal: no cyanosis or clubbing, extremities motor strength 5/5 Skin: no rashes, warm and dry Neurologic: moves all extremities and awake; no focal motor deficits and not confused Psychiatric: A+Ox3, euthymic affect Results & Data Vital Signs (Past 12 Hours) Vital Signs Temp Pulse Pulse Resp BP Pulse Ox 09/21/19 07:31 97.9 F 81 18 150/74 H 97 09/21/19 07:18 78 09/21/19 06:40 79 09/21/19 04:12 98.1 F 81 20 144/52 H 95 09/20/19 23:56 98.6 F 79 18 145/72 H 93 09/20/19 20:25 81 149/79 H PG Care Time/CCT Total # of Minutes Spent Total Time Spent with Patient: Total time spent is greater than 50% in coordination of care (as documented) at patient's floor/unit and/or counseling p atient: (1) Pneumonia Laterality: unspecified laterality Lung location: unspecified part of lung Pneumonia type: due to unspecified organism Qualified Code(s): J18.9 - Pneu monia, unspecified organism (2) 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
[2019-09-21] MEDS: TOPIRAMATE 25 MG TAB PO SCH (08:37)
[2019-09-21] MEDS: CHOLECALCIFEROL 1,000 UNITS TAB PO SCH (08:37)
[2019-09-21] MEDS: carvediloL 3.125 MG TAB PO SCH (08:38)
[2019-09-21] MEDS: VERAPAMIL HCL 120 MG TABCR PO SCH (08:38)
[2019-09-21] MEDS: ASPIRIN 81 MG ECTAB PO SCH (08:38)
[2019-09-21] MEDS ORDERED: LACTOBACILLUS ACIDOPHILUS (FLORANEX) TAB PO SCH (12:00)
[2019-09-21] MEDS: LEVOFLOXACIN/D5W 750 MG/150 ML BAG IV SCH (12:45)
[2019-09-21] MEDS ORDERED: LEVOFLOXACIN/D5W 750 MG/150 ML BAG IV SCH (14:00)
--- NOTE | 2019-09-21 16:01 | Discharge Summary ---
Date of Service September 21, 2019 Admission HPI Per Admitting Provider 84-year-old male presents with his and daughter. Majority of history is from the daughter, though the patient is quite awake, alert, pleasantly conversational, and does not appear in immediate distress. Both the patient and daughter note that he had the relatively fast onset of multiple symptoms yesterday to include a cough productive of yellowish non- bloody mucus, generalized headache, dizziness, feeling of decreased overall strength, and minimal p.o. intake. Highest temperature was 101 yesterday. Daughter states that he also had some mild bilateral upper arm "tremor" which she considers to be a telltale sign of impending infection, with last similar episode back in May. May also was last hospital stay and round of antibiotics. On further review of systems, patient denies any chest pain or heart concerns similar to his previous cardiac work-ups. He did have one episode of emesis yesterday but family is rather convinced he did not aspirate. He did tolerate some food later in the day yesterday. Denies any diarrhea or abdominal pain. No other acute patient or family concerns. Of note, the patient has a history of non-small cell lung cancer for which he underwent chemotherapy, radiation, and left lobe resection back in 1998. He says no known cancerous issues since. - Past medical history includes lung cancer, migraines, cerebral aneurysm, left neck neuroma, vitamin D deficiency, hyperlipidemia, hypertension, COPD, - Past surgical history includes cardiac cath, cataract surgery, appendectomy, left lung lobectomy, left total knee replacement, seroma following lipoma exci evelina. - Social history includes previously smoking until lung surgery. Denies alcohol use. Lives at home with spouse. 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 Admission Exam Per Admitting Provider GENERAL: Awake, alert, well-appearing, in no acute distress. Presently speaking in full sentences on room air. HENT: Normocephalic, atraumatic. Oropharynx unremarkable. EYES: Normal conjunctiva. Sclera non-icteric. NECK: Inspection normal. Non-tender. Supple and full ROM. No nuchal rigidity. CARDIAC: +S1S2 borderline but regular tachycardia, no murmurs. RESPIRATORY: Decreased breath sounds and some rhonchi in the left field. Right field sounds clear. Normal respiratory effort. On room air. GI: +BS, soft, non-distended. No tenderness to palpation. No rebound or guarding. Negative Gerard sign. EXTREMITIES: No pedal edema or calf tenderness. Moving all extremities naturally and easily. NEURO: No gross neuro deficits. No present tremors. Answering questions quickly and easily, though does not seem to recall all recent events the same as his daughter. Principal Diagnosis Community acquired pneumonia Hemoptysis Incidental 4.1cm cystic pancreatic head lesion Discharge Exam Constitutional well developed, well nourished and + well hydrated; no acute distress Neck normal visual inspection and trachea midline Respiratory normal respiratory effort; no respiratory distress, no labored breathing and does not use accessory muscles Auscultation: + diminished lung sounds (left base) and + crackles (mild left sided); no rales, no rhonchi and no wheezes Cardiovascular Rate/Rhythm: regular rate and regular rhythm Heart Sounds: + murmur (RUSB 2/6 soft) Vessels: no JVD Extremities: normal capillary refill; no pedal edema Gastrointestinal (Abdomen) normal bowel sounds, soft, nontender, no hepatosplenomegaly Musculoskeletal no cyanosis or clubbing, extremities motor strength 5/5 Skin no rashes, warm and dry Neurologic moves all extremities and awake; no focal motor deficits and not confused Psychiatric A+Ox3, euthymic affect Discharge Data Allergies Allergy/AdvReac Type Severity Reaction Status Date / Time Cephalosporins Allergy Intermediate Rash Verified 09/25/19 16:21 fluticasone Allergy Intermediate Rash Verified 09/25/19 16:21 Iodinated Contrast Media Allergy Intermediate Hives Verified 09/25/19 16:21 oxycodone Allergy Intermediate HIVES Verified 09/25/19 16:21 Penicillins Allergy Intermediate Rash Verified 09/25/19 16:21 salmeterol Allergy Mild Rash Verified 09/19/19 12:35 cephalexin [From Keflex] Allergy Unknown Unknown Verified 09/25/19 16:21 pravastatin Allergy Unknown Unknown Verified 09/25/19 16:21 prednisone Allergy Unknown Unknown Verified 09/25/19 16:21 atorvastatin AdvReac Mild MUSCLE Verified 09/25/19 16:21 ACHES fluvastatin AdvReac Mild MUSCLE Verified 09/25/19 16:21 ACHES lisinopril AdvReac Mild Cough Verified 09/25/19 16:21 rosuvastatin AdvReac Mild MUSCLE Verified 09/25/19 16:21 ACHES Consultations 09/19/19 13:45 ED Decision to Admit Stat Ordered Studies 09/19/19 11:42 CT head/brain wo con Stat 09/19/19 14:09 CT chest wo con Stat 09/20/19 16:37 US abdomen limited Routine Hospital Course (1) Community acquired pneumonia: Agnieszka Singleton is an 84 year old male admitted to [facility] from September 19 to for a shaking/vomiting episode and coughing up yellowish sputum. CT chest revealed extensive left lung consolidation consistent with pneumonia. Treated with IV Levaquin switched to PO on discharge. Remained on room air throughout course. No COPD exacerbation despite history of this. He will follow up with pulmonology as previously arranged in October. If not scheduled for repeat CT imaging at that time I would recommend having a follow up CXR in approximately 4-6 weeks. Due to elevated bilirubin he had abdominal ultrasound. This showed an incidental 4.1cm cystic pancreatic head lesion. Bilirubin resolved and suspected to be unrelated to this. This pancreatic mass appears to have been present on CT scan in 2013. Possibly IPMN and given size would recommend follow up by gastroenterology. 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 CT imaging of you chest revealed extensive left lung consolidation consistent with pneumonia. You were treated with intravenous Levaquin while admitted and will be switched to oral Levaquin on discharge. Please continue with incentive spirometer to help aerate your lung and clear the infection. Recommend taking probiotics while on this medication to reduce the risk of antibiotic associated diarrhea. No COPD exacerbation was appreciated and no steroids were started. Please follow up with your public employment mediator as previously arranged in October. If you are not scheduled for repeat CT imaging at that time I would recommend having a follow up CXR in approximately 4-6 weeks. Due to elevated bilirubin you underwent abdominal ultrasound. This showed an incidental 4.1cm cystic pancreatic head lesion. This appears to have been present on CT scan in 2013. Please follow up with your primary care physician to discuss additional imaging of this or referral to gastroenterology. You were also noted to have mild fatty liver on this exam. Please follow up with your primary care physician in the next 1-2 weeks. Pending Studies at Discharge: Yes (final blood culture results) Stand-Alone Forms: My [facility], Smoking Cessation Medications and DC Order Prescriptions: Continued carvedilol 3.125 mg tablet 3.125 mg PO BID Qty: 180 RF: 1 topiramate 25 mg tablet 25 mg PO QAM RF: 0 verapamil 120 mg capsule,ext rel. pellets 24 hr 120 mg PO QAM RF: 0 aspirin 81 mg Tablet,Delayed Release (Dr/Ec) 81 mg PO QAM RF: 0 nitroglycerin [Nitrostat] 0.4 mg Tablet, Sublingual 1 tab Sublingual UD PRN (Reason: Chest Pain) RF: 0 albuterol sulfate [Ventolin HFA] 90 mcg/actuation Hfa Aerosol Inhaler 2 puff Inhalation QID PRN (Reason: SOB) RF: 0 cholecalciferol (vitamin D3) [Vitamin D3] 1,000 unit Capsule 1,000 unit PO BID RF: 0 No Action Breo Ellipta 100-25 mcg/dose blister with device 1 inh INHALATION DAILY Qty: 60 RF: 2 Brilinta 90 mg Tablet 90 mg PO BID Qty: 60 RF: 0 aspirin [Ecotrin Low Strength] 81 mg Tablet,Delayed Release (Dr/Ec) 81 mg PO QAM Qty: 30 RF: 0 Discharge Orders: Discharge Order (Routine); Ordered 09/21/19 Ordered By: Zain Jones Admission Data Admit Date/Time: 09/19/19 15:41 Attending Provider: Zain Jones Admit Provider: Santos Chau Primary Care Provider: Loan Zafar Other Interventions: Discharge Summary Assessment (RN) Last Done: 09/21/19 16:07 DC Date/Time DO NOT enter until pt leaves facility: 09/21/19 16:17
[2019-09-22] MEDS ORDERED: levoFLOXacin 750 MG TAB PO SCH (13:00)
== END 2019-09-21 16:17 | disposition home or self-care (01) | DRG 194 ==
LOC: ED 10:05 → 2N 15:41 → SUATTDRO 15:41 → 2N 16:24

== ENCOUNTER 2019-09-24 11:06 | Inpatient (IN) ==
[2019-09-24] MEDS ORDERED: DiphenhydrAMINE HCL 50 MG/ML VIAL IV STA (11:27)
[2019-09-24] MEDS ORDERED: DEXAMETHASONE **PF** INJ 10 MG/ML VIAL IV ONE (11:27)
[2019-09-24] MEDS ORDERED: FAMOTIDINE 20MG/5ML IV PUSH IV STA (11:27)
[2019-09-24] MEDS ORDERED: NiCARDipine HCL INJ 2.5 MG/ML 10 ML AMP ONE (11:28)
[2019-09-24] MEDS ORDERED: HEPARIN (PORCINE) 1000 UNIT/ML 10 ML (CATH LAB USE ONLY) ONE ×2 (11:28→12:26)
[2019-09-24] MEDS ORDERED: fentaNYL citrate 100 MCG/2 ML VIAL ONE (11:28)
[2019-09-24] MEDS ORDERED: MIDAZOLAM HCL 1 MG/ML 2ML VIAL ONE (11:28)
[2019-09-24] MEDS ORDERED: NITROGLYCERIN/D5W 100MCG/ML 20ML SYR ONE (11:29)
[2019-09-24 11:41] LABS: Basophils # (auto) 0.03 K/uL (0-0.2); Basophils % (auto) 0.3 %; Eosinophils # (auto) 0.09 K/uL (0-0.5); Eosinophils % (auto) 0.9 %; Hematocrit (blood only) 41.4 % (42-52); Immature Granulocytes # (auto) 0.15 K/uL (0.00-0.02); Immature Granulocytes % (auto) 1.5 %; Lymphocytes # (auto) 1.17 K/uL (1.2-3.4); Lymphocytes % (auto) 11.4 %; Mean Corpuscular Hemoglobin 30.7 pg (25-34); Mean Corpuscular Hgb Conc 33.8 g/dL (32-36); Mean Corpuscular Volume 90.8 fL (80-100); Mean Platelet Volume 10.5 fL (7.4-10.4); Monocytes # (auto) 1.13 K/uL (0.11-0.59); Neutrophils # (auto) 7.66 K/uL (1.4-6.5); Neutrophils % (auto) 74.9 %; Platelet Count 228 K/uL (130-400); RDW Coefficient of Variation 14.3 % (11.5-14.5); RDW Standard Deviation 47.4 fL (36.4-46.3); Red Blood Count 4.56 M/uL (4.7-6.1); White Blood Count 10.23 K/uL (4.8-10.8)
[2019-09-24 11:43] LABS: iSTAT Creatinine 1.3 mg/dl (0.6-1.3); iSTAT Hemoglobin 13.6 g/dl (14.0-18.0); iSTAT Ionized Calcium 1.24 mmol/l (1.12-1.32); iSTAT Potassium 4.2 mEq/L (3.3-5.0)
[2019-09-24 11:56] LABS: Alanine Aminotransferase 21 U/L (12-78); Albumin Level 2.5 gm/dl (3.4-5.0); Aspartate Aminotransferase 13 U/L (15-37); BUN Creatinine Ratio 14.6 (10-20); Blood Urea Nitrogen 18 mg/dl (7-18); Calcium 8.7 mg/dl (8.5-10.1); Carbon Dioxide 28 mmol/L (21-32); Chloride 108 mmol/L (98-107); Est GFR (African American) 61.9; Est GFR (Non-African American) 53.4; Glucose 93 mg/dl (70-99); Magnesium 2.1 mg/dl (1.8-2.4); Potassium 4.1 mmol/L (3.5-5.1); Sodium 140 mmol/L (136-145)
[2019-09-24 12:07] LABS: Albumin Globulin Ratio 0.6 (0.9-2); Alkaline Phosphatase 48 U/L (45-117); Bilirubin,Total 0.9 mg/dl (0.2-1); Globulin 4.3 gm/dl (2.5-4.0); Total Protein 6.8 gm/dl (6.4-8.2); Troponin I < 0.015 ng/ml (0-0.045)
[2019-09-24 12:13] LABS: INR 1.1 (0.9-1.1); Partial Thromboplastin Time 26.1 Seconds (21.0-31.0); Prothrombin Time 10.9 Seconds (9.0-12.0)
--- NOTE | 2019-09-24 12:56 | Cardiac Catheterization ---
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 Successfull POBA of D1 Hemodynamics Rest Ao:: 120/87 Final Ao: 120/87 LV: not Recommendations Recommendations: Medical Therapy and/or Counseling and PCI without planned CABG Specimens Specimens: None Radiation Exposure (mGy) 0 Contrast (mls) 0 Procedural Complication(s) None Disposition ICU I attest to the content of the Intraoperative Record and any orders documented therein. Any exceptions are noted below. ACC Data: Cloth Picker Cardiac Status Clinical evaluation leading to the procedure CAD Presenation: STEMI Anginal Classification: CCS IV Heart Failure: No Cardiogenic Shock within 24 Hours: No Cardiac Arrest within 24 Hours: No Imaging Studies Past 6 Months: No Stress Studies Past 6 Months: No Standard Exercise Test: No Stress Echocardiogram: No Stress Testing w/SPECT MPI: No Cardiac CTA: No STEMI OR Non-STEMI Symptom Onset Date: 09/24/19 Symptom Onset Time: 09:20 Thrombolytics: No Coronary Anatomy Dominant: Right LAD (% Stenosis): Mid (100%) D1 (% Stenosis): Proximal (100%) Diagnostic Physicians Name: Sera Myers Status: Salvage Closure Device Percutaneous Entry Location: Radial Closure Device: Radial Band Recommendations: Medical Therapy and/or Counseling and PCI without planned CABG PCI Indication: Immediate PCI for STEMI and PCI for STEMI - Unstable First Noted: First EKG Lesion Segment Name: D1 Culprit Artery: Yes Stenosis Prior to Rx (%): 100% Chronic Total Occlusion: No IVUS: No FFR: No Previously Treated Lesion: Timeframe: 1-2 years Treated with Stent: Yes In-Stent Restenosis: Yes In-Stent Thrombosis: Yes Stent Type: SERGIO Yes Lesion Complexity: High/C Lesion Length (mm): 20mm Thrombus Present: Yes Bifurcation Lesion: Yes Guidewire Across Lesion: Yes Intraprocedure Events Significant Disection: No Perforation: No
--- NOTE | 2019-09-24 13:05 | History & Physical Report ---
Date of Service September 24, 2019 Assessment & Plan (1) Acute ST elevation myocardial infarction (STEMI): 1. To The quality assurance/r&d lab technician for STEMI Involved coronary artery: unspecified coronary artery Qualified Code(s): I21.3 - ST elevation (STEMI) myocardial infarction of unspecified site Present on Admission?: Yes History of Present Illness Primary Care Provider: Loan Zafar PA-C 88 yo presenting with ant STEMI. 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 Prior stenting of D1. Acute chest pain at 9am. Found to have ant STEMI Allergies Allergy/AdvReac Type Severity Reaction Status Date / Time atorvastatin Allergy Mild MUSCLE Verified 09/19/19 12:35 ACHES fluvastatin Allergy Mild MUSCLE Verified 09/19/19 12:35 ACHES Iodinated Contrast Media Allergy Mild Hives Verified 09/19/19 12:35 lisinopril Allergy Mild Cough Verified 09/19/19 12:35 Penicillins Allergy Mild Rash Verified 09/19/19 12:35 rosuvastatin Allergy Mild MUSCLE Verified 09/19/19 12:35 ACHES salmeterol Allergy Mild Rash Verified 09/19/19 12:35 cephalexin [From Keflex] Allergy Unknown Verified 09/19/19 12:35 Cephalosporins Allergy Unknown Rash Verified 09/19/19 12:35 fluticasone Allergy Unknown Rash Verified 09/19/19 12:35 oxycodone Allergy Unknown HIVES Verified 09/19/19 12:35 pravastatin Allergy Unknown Verified 09/19/19 12:35 prednisone Allergy Unknown Verified 09/19/19 12:35 Home Medications Home Medications Medication Instructions Recorded Confirmed Type albuterol sulfate [Ventolin HFA] 2 puff INHALATION QID PRN 06/25/18 09/22/19 History aspirin 81 mg PO QAM 06/25/18 09/22/19 History cholecalciferol (vitamin D3) 1,000 unit PO BID 06/25/18 09/22/19 History [Vitamin D3] nitroglycerin [Nitrostat] 1 tab SUBLINGUAL UD PRN 06/25/18 09/22/19 History carvedilol 3.125 mg tablet 3.125 mg PO BID #180 tab 09/05/19 09/22/19 Rx clopidogrel [Plavix] 75 mg PO HS 09/19/19 09/22/19 History topiramate 25 mg PO QAM 09/19/19 09/22/19 History verapamil 120 mg PO QAM 09/19/19 09/22/19 History levofloxacin [Levaquin] 750 mg PO DAILY 7 Days #7 tab 09/21/19 09/22/19 Rx fluticasone furoate 100 1 inh INHALATION DAILY #60 ea 09/22/19 Rx mcg-vilanterol 25 mcg/dose inhalation powder Past Med/Surg History Medical History Abnormal EKG (Deleted) CAD (coronary artery disease) (Acute) Cancer of lung (Resolved) 1998 LOBECTOMY. 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 Unstable angina (Deleted) Vitamin D deficiency (Chronic) Surgical History History of cardiac catheterization (Chronic ~2016) 2016 RI WITH [address] SABILLON LAST SEEN 06/23/18 Hx of cataract surgery S/P appendectomy S/P excision of lipoma (Resolved) S/P lobectomy of lung LEFT S/P total knee arthroplasty LEFT Stented coronary artery (Deleted) Family History Brother Cancer Hypertension Sister Cancer Hypertension Diabetes Mother Hypertension Diabetes Unknown Coronary heart disease Father Coronary heart disease Daughter Breast cancer Social History Preferred Language: Upper Sorbian Communication Ability: Effective Jewelry Inspector Required: No Beliefs That Will Affect Care: None Current Living Situation: Spouse Feels Safe at Home: Yes Smoking Status: Former smoker Second Hand Exposure: No ; Hx Alcohol Use: No Hx Substance Use: No Review of Systems All systems reviewed & are unremarkable except as noted in HPI & below Physical Exam Constitutional: + ill appearing and + cachectic Respiratory: normal respiratory effort, lungs clear to auscultation Cardiovascular: RRR, no murmur, no edema Rate/Rhythm: regular rate and regular rhythm Heart Sounds: normal S1, normal S2 and normal, physiologic split S2 Gastrointestinal (Abdomen): normal bowel sounds, soft, nontender, no hepatosplenomegaly ASA Classification ASA ASA2 Results & Data Vital Signs (Past 12 Hours) Vital Signs Temp Pulse Resp BP Pulse Ox 09/24/19 11:33 93 09/24/19 11:30 83 20 124/74 92 09/24/19 11:27 36.6 C 76 14 112/71 92 09/24/19 11:23 77 15 93 09/24/19 11:20 78 17 112/71 91 Code Status & VTE Plan Code Status Full VTE Prophylaxis Plan VTE Prophylaxis will be ordered: Yes Critical Care Time Critical Care Time: Yes Total Critical Care Time: 30
--- NOTE | 2019-09-24 13:09 | Hospitalist Consultation ---
Date of Consultation September 24, 2019 Assessment & Plan (1) Acute ST elevation myocardial infarction (STEMI): S/P successful PCI with stent to D1 Chest pain free following PCI Plavix 75mg daily. Aspirin 81 mg daily (2) CAD (coronary artery disease): with previous stents x4. Continue carvedilol. Prn NTG (3) Hyperlipidemia: Has had muscle aches with statins. He has tried atorvastatin, fluvastatin, rosuvastatin, and pravastatin. (4) Hypertension: Controlled Continue verapamil, carvedilol. (5) COPD (chronic obstructive pulmonary disease): No exacerbation Continue Breo Ellipta prn Albuterol nebs. 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 History of Present Illness Attending Physician: Serarigo Myers 84 y/o male presented to the ED with acute substernal chest pain 9/10 that started at 0945 this am while seated in chair. Pain was non-radiating, but was associated with fatigue and diaphoresis. NTG, aspirin 324mg, and Fentanyl was given en route. Upon presentation, the pain was 8/10. STEMI alerted called, and patient went to the cardiac orthodontic laboratory technician. He underwent successful PCI with stent placement to D1. Patient is chest pain free post-cath and will be admitted to ICU. Allergies Allergy/AdvReac Type Severity Reaction Status Date / Time atorvastatin Allergy Mild MUSCLE Verified 09/19/19 12:35 ACHES fluvastatin Allergy Mild MUSCLE Verified 09/19/19 12:35 ACHES Iodinated Contrast Media Allergy Mild Hives Verified 09/19/19 12:35 lisinopril Allergy Mild Cough Verified 09/19/19 12:35 Penicillins Allergy Mild Rash Verified 09/19/19 12:35 rosuvastatin Allergy Mild MUSCLE Verified 09/19/19 12:35 ACHES salmeterol Allergy Mild Rash Verified 09/19/19 12:35 cephalexin [From Keflex] Allergy Unknown Verified 09/19/19 12:35 Cephalosporins Allergy Unknown Rash Verified 09/19/19 12:35 fluticasone Allergy Unknown Rash Verified 09/19/19 12:35 oxycodone Allergy Unknown HIVES Verified 09/19/19 12:35 pravastatin Allergy Unknown Verified 09/19/19 12:35 prednisone Allergy Unknown Verified 09/19/19 12:35 Home Medications Home Medications Medication Instructions Recorded Confirmed Type albuterol sulfate [Ventolin HFA] 2 puff INHALATION QID PRN 06/25/18 09/22/19 History aspirin 81 mg PO QAM 06/25/18 09/22/19 History cholecalciferol (vitamin D3) 1,000 unit PO BID 06/25/18 09/22/19 History [Vitamin D3] nitroglycerin [Nitrostat] 1 tab SUBLINGUAL UD PRN 06/25/18 09/22/19 History carvedilol 3.125 mg tablet 3.125 mg PO BID #180 tab 09/05/19 09/22/19 Rx clopidogrel [Plavix] 75 mg PO HS 09/19/19 09/22/19 History topiramate 25 mg PO QAM 09/19/19 09/22/19 History verapamil 120 mg PO QAM 09/19/19 09/22/19 History levofloxacin [Levaquin] 750 mg PO DAILY 7 Days #7 tab 09/21/19 09/22/19 Rx fluticasone furoate 100 1 inh INHALATION DAILY #60 ea 09/22/19 Rx mcg-vilanterol 25 mcg/dose inhalation powder Patient History Medical History Abnormal EKG (Deleted) CAD (coronary artery disease) (Acute) Cancer of lung (Resolved) 1998 LOBECTOMY. 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 Unstable angina (Deleted) Vitamin D deficiency (Chronic) Surgical History History of cardiac catheterization (Chronic ~2016) 2016 CT WITH [address] SABILLON LAST SEEN 06/23/18 Hx of cataract surgery S/P appendectomy S/P excision of lipoma (Resolved) S/P lobectomy of lung LEFT S/P total knee arthroplasty LEFT Stented coronary artery (Deleted) Family History Brother Cancer Hypertension Sister Cancer Hypertension Diabetes Mother Hypertension Diabetes Unknown Coronary heart disease Father Coronary heart disease Daughter Breast cancer Social History Preferred Language: Azeri Communication Ability: Effective Ultrasonic Solderer Required: No Beliefs That Will Affect Care: None Current Living Situation: Spouse Other Information That Helps Us Care for You: No Feels Safe at Home: Yes Safety Concerns: Feels Safe At This Time Smoking Status: Former smoker Do You Dip or Chew Tobacco: No ; Smoking End Date: 25 years ago ; Second Hand Exposure: No ; Hx Alcohol Use: No Hx Substance Use: No Review of Systems Review of Systems: Constitutional- no fever; no weight loss Eyes- no acute visual changes ENT- no sinus drainage; no pharyngitis Pulmonary- no cough, no wheezing, no shortness of breath Cardiac- As in HPI. GI- no nausea, no vomiting, no diarrhea, no melena. - no dysuria, no hematuria Musculoskeletal- + chronic arthralgias Derm- no rashes, no new skin lesions. Hematologic- no unusual bruising, no unusual bleeding Lymphatics- no adenopathy Endocrine- no polyuria or polydipsia; no heat or cold intolerance Neuro- no headaches, no focal neurologic symptoms Psych- no anxiety, no depression Physical Exam Physical Exam: General- adult male. Head- atraumatic Eyes- PERRL, EOMI, anicteric ENT- oropharynx clear Neck- supple, no JVD, no adenopathy, no thyromegaly. Lungs- CTA b/l No R/R/W. Heart- Regular, nrl S1S2, No M/R/G. Abdomen- normal bowel sounds, soft, nontender. Extremities- no pretibial edema, no calf tenderness; peripheral pulses intact Neuro- alert, oriented x 3; PERRL, EOMI; honing job setter II-XII grossly intact, non-focal. Skin- warm & dry Results & Data Vital Signs (Past 12 Hours) Vital Signs Temp Pulse Resp BP Pulse Ox 09/24/19 11:33 93 09/24/19 11:30 83 20 124/74 92 09/24/19 11:27 36.6 C 76 14 112/71 92 09/24/19 11:23 77 15 93 09/24/19 11:20 78 17 112/71 91 Laboratory Results Laboratory Results WBC 10.23 K/uL (4.8-10.8) 09/24/19 11:29 RBC 4.56 M/uL (4.7-6.1) L 09/24/19 11:29 Hgb 14.0 g/dL (14.0-18.0) 09/24/19 11:29 POC Hgb 13.6 g/dl (14.0-18.0) L 09/24/19 11:28 Hct 41.4 % (42-52) L 09/24/19 11:29 POC Hct 40 % (42-52) L 09/24/19 11:28 MCV 90.8 fL (80-100) 09/24/19 11:29 MCH 30.7 pg (25-34) 09/24/19 11:29 MCHC 33.8 g/dL (32-36) 09/24/19 11:29 RDW Std Deviation 47.4 fL (36.4-46.3) H 09/24/19 11:29 RDW Coeff of Falguni 14.3 % (11.5-14.5) 09/24/19 11:29 Plt Count 228 K/uL (130-400) 09/24/19 11:29 MPV 10.5 fL (7.4-10.4) H 09/24/19 11:29 Immature Gran % (Auto) 1.5 % 09/24/19 11:29 Neut % (Auto) 74.9 % 09/24/19 11:29 Lymph % (Auto) 11.4 % 09/24/19 11:29 [place] % (Auto) 11.0 % 09/24/19 11:29 Eos % (Auto) 0.9 % 09/24/19 11:29 Baso % (Auto) 0.3 % 09/24/19 11:29 Immature Gran # (Auto) 0.15 K/uL (0.00-0.02) H 09/24/19 11:29 Neut # (Auto) 7.66 K/uL (1.4-6.5) H 09/24/19 11:29 Lymph # (Auto) 1.17 K/uL (1.2-3.4) L 09/24/19 11:29 [place] # (Auto) 1.13 K/uL (0.11-0.59) H 09/24/19 11:29 Eos # (Auto) 0.09 K/uL (0-0.5) 09/24/19 11:29 Baso # (Auto) 0.03 K/uL (0-0.2) 09/24/19 11:29 PT 10.9 Seconds (9.0-12.0) 09/24/19 11:29 INR 1.1 (0.9-1.1) 09/24/19 11:29 APTT 26.1 Seconds (21.0-31.0) 09/24/19 11:29 PTT Ratio 1.0 09/24/19 11:29 POC Sodium 139 mEq/L (135-144) 09/24/19 11:28 Sodium 140 mmol/L (136-145) 09/24/19 11:29 POC Potassium 4.2 mEq/L (3.3-5.0) 09/24/19 11:28 Potassium 4.1 mmol/L (3.5-5.1) 09/24/19 11:29 POC Chloride 103 mEq/L (101-112) 09/24/19 11:28 Chloride 108 mmol/L (98-107) H 09/24/19 11:29 Carbon Dioxide 28 mmol/L (21-32) 09/24/19 11:29 POC Total CO2 26 mEq/l (24-31) 09/24/19 11:28 Anion Gap 4.0 (3-11) 09/24/19 11:29 POC Anion Gap 16.0 mmol/L (16-25) 09/24/19 11:28 POC BUN 19 mg/dl (7-18) H 09/24/19 11:28 BUN 18 mg/dl (7-18) 09/24/19 11:29 Creatinine 1.24 mg/dl (0.6-1.4) 09/24/19 11:29 POC Creatinine 1.3 mg/dl (0.6-1.3) 09/24/19 11:28 Est Cr Clr Drug Dosing 51.0 ml/min 09/24/19 11:29 Est GFR ( Amer) 61.9 09/24/19 11:29 Est GFR (Non-Af Amer) 53.4 09/24/19 11:29 BUN/Creatinine Ratio 14.6 (10-20) 09/24/19 11:29 Glucose 93 mg/dl (70-99) 09/24/19 11:29 POC Glucose (other) 94 mg/dl (70-99) 09/24/19 11:28 Calcium 8.7 mg/dl (8.5-10.1) 09/24/19 11:29 POC Ioniz Calcium Best 1.24 mmol/l (1.12-1.32) 09/24/19 11:28 Magnesium 2.1 mg/dl (1.8-2.4) 09/24/19 11:29 Total Bilirubin 0.9 mg/dl (0.2-1) 09/24/19 11:29 AST 13 U/L (15-37) L 09/24/19 11:29 ALT 21 U/L (12-78) 09/24/19 11:29 Alkaline Phosphatase 48 U/L (45-117) 09/24/19 11:29 Troponin I < 0.015 ng/ml (0-0.045) 09/24/19 11:29 Total Protein 6.8 gm/dl (6.4-8.2) 09/24/19 11:29 Albumin 2.5 gm/dl (3.4-5.0) L 09/24/19 11:29 Globulin 4.3 gm/dl (2.5-4.0) H 09/24/19 11:29 Albumin/Globulin Ratio 0.6 (0.9-2) L 09/24/19 11:29 TSH 2.490 uIu/ml (0.300-4.500) 09/24/19 11:29 PG Care Time/CCT Total # of Minutes Spent Total Time Spent: 55 Total Time Spent with Patient: Total time spent is greater than 50% in coordination of care (as documented) at patient's floor/unit and/or counseling patient: (1) Acute ST elevation myocardial infarction (STEMI) Involved coronary artery: unspecified coronary artery Qualified Code(s): I21.3 - ST elevation (STEMI) myocardial infarction of unspecified site (2) 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
--- NOTE | 2019-09-24 14:03 | Critical Care Consultation ---
Date of Consultation September 24, 2019 Assessment & Plan (1) Admitted to intensive care unit: Reason Critically Ill: 84-year-old male here for stemi with successful pci. Past medical history significant for coronary artery disease, lung cancer, cerebral aneurysm, complicated migraine, COPD, hyperlipidemia hypertension, pulmonary emphysema history of a STEMI with 4 stents placed in 2016, recent discharge from [facility] for pneumonia Neuro: -CAM ICU: NEGATIVE -Monitor for signs and symptoms of pain Cardiac: Status cardiac catheterization with PCI for diagnosed STEMI -Routine postoperative care -Notify physician with chest pain -On DAPT with clopidogrel and aspirin -On carvedilol, not on statin secondary to history of allergy -consider repatha -Needs an SUZY or an ARB defer to cards -Resume verapamil tomorrow morning Respiratory: History of pneumonia Patient recently discharged on 09/22 from [facility], she was treated for pneumonia. -Continue Levaquin GI: -Heart healthy diet diet RENAL/LYTES: - No significant electrolyte derangement. -Replace lytes as needed. -Cr stable : - No concerns at this time. ENDO: -no hx of dm HEME: - Stable H&H. ID: -See respiratory -Monitor fever curve. INTEGUMENTARY: -Surgical site clean dry and intact LINES/IV ACCESS: -PIVs intact. DVT PROPHYLAXIS: -We will initiate tomorrow Dispo: ICU Thank you for allowing us to be part of this patient's care. Please refer to Dr. Santiago's documentation for any further recommendations. (2) Acute ST elevation myocardial infarction (STEMI): (3) Pneumonia: (4) H/O: lung cancer: (5) Pulmonary emphysema: (6) Dyslipidemia: (7) Chronic osteoarthritis: (8) Seroma after procedure: (9) Hyperlipidemia: (10) Hypertension: (11) COPD (chronic obstructive pulmonary disease): (12) Cancer of lung: Supervising Physician Co-Signing Physician Notes Dr. Resendiz was the resident-physician during care of patient. I separately evaluated patient for mccord portions of the history and the exam. I was present during the critical portion of medical decision making, and I discussed the case with the resident. I generally agree with the findings and plan except for any additions/exceptions noted. 84-year-old male with a past medical history of coronary artery disease on aspirin and Plavix, history of left upper lobe lobectomy status post chemotherapy and radiation 20 years ago and a recent diagnosis of pneumonia discharged a couple days ago on Levaquin who presented to the hospital with crushing substernal chest pain while sitting in a chair. He underwent a left heart cath today by Dr. Sera Myers. Summary of findings including 100% JAVA LEAD DEVELOPER of the left anterior descending with right greater than left collaterals. There is 100% occlusion of D1 segment. Recommendations were for medical therapy. The patient has a history of statin intolerance and thus is not on any statin currently. He was recently discharged from the hospital due to left-sided pneumonia and hemoptysis. He was given a course of Levaquin. Will continue Levaquin while he is inpatient. Monitor for signs of hemoptysis. Unfortunately, we cannot stop his aspirin or Plavix at this time given his coronary artery disease. He will need an echo to evaluate his left ventricular function. We will restart his carvedilol as well. History of Present Illness Attending Physician: Sera Myers History of Present Illness 84-year-old male with a past medical history of coronary artery disease, lung cancer, cerebral aneurysm, complicated migraine, COPD, hyperlipidemia hypertension, pulmonary emphysema history of a STEMI with 4 stents placed in 2016, recent discharge from [facility] for pneumonia who presented to the emergency department acute substernal chest pain described as 9 out of 10 in this occurring while seated in a chair. A STEMI was diagnosed and heart alert was called the patient was taken to the [facility]. Cardiac catheterization demonstrated 100% occlusion of the JAVA LEAD DEVELOPER of the LAD with right to left collaterals, 100% acute occlusion of D1 with 6 stents full PCI. Patient was transferred to the ICU status post catheterization for further evaluation management. All questions answered no acute concerns. Allergies Allergy/AdvReac Type Severity Reaction Status Date / Time atorvastatin Allergy Mild MUSCLE Verified 09/19/19 12:35 ACHES fluvastatin Allergy Mild MUSCLE Verified 09/19/19 12:35 ACHES Iodinated Contrast Media Allergy Mild Hives Verified 09/19/19 12:35 lisinopril Allergy Mild Cough Verified 09/19/19 12:35 Penicillins Allergy Mild Rash Verified 09/19/19 12:35 rosuvastatin Allergy Mild MUSCLE Verified 09/19/19 12:35 ACHES salmeterol Allergy Mild Rash Verified 09/19/19 12:35 cephalexin [From Keflex] Allergy Unknown Verified 09/19/19 12:35 Cephalosporins Allergy Unknown Rash Verified 09/19/19 12:35 fluticasone Allergy Unknown Rash Verified 09/19/19 12:35 oxycodone Allergy Unknown HIVES Verified 09/19/19 12:35 pravastatin Allergy Unknown Verified 09/19/19 12:35 prednisone Allergy Unknown Verified 09/19/19 12:35 Home Medications Home Medications Medication Instructions Recorded Confirmed Type albuterol sulfate [Ventolin HFA] 2 puff INHALATION QID PRN 06/25/18 09/22/19 History aspirin 81 mg PO QAM 06/25/18 09/22/19 History cholecalciferol (vitamin D3) 1,000 unit PO BID 06/25/18 09/22/19 History [Vitamin D3] nitroglycerin [Nitrostat] 1 tab SUBLINGUAL UD PRN 06/25/18 09/22/19 History carvedilol 3.125 mg tablet 3.125 mg PO BID #180 tab 09/05/19 09/22/19 Rx clopidogrel [Plavix] 75 mg PO HS 09/19/19 09/22/19 History topiramate 25 mg PO QAM 09/19/19 09/22/19 History verapamil 120 mg PO QAM 09/19/19 09/22/19 History levofloxacin [Levaquin] 750 mg PO DAILY 7 Days #7 tab 09/21/19 09/22/19 Rx fluticasone furoate 100 1 inh INHALATION DAILY #60 ea 09/22/19 Rx mcg-vilanterol 25 mcg/dose inhalation powder Patient History Medical History Abnormal EKG (Deleted) CAD (coronary artery disease) (Acute) Cancer of lung (Resolved) 1998 LOBECTOMY. 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 Unstable angina (Deleted) Vitamin D deficiency (Chronic) Surgical History History of cardiac catheterization (Chronic ~2016) 2016 OR WITH [address] SABILLON LAST SEEN 06/23/18 Hx of cataract surgery S/P appendectomy S/P excision of lipoma (Resolved) S/P lobectomy of lung LEFT S/P total knee arthroplasty LEFT Stented coronary artery (Deleted) Family History Brother Cancer Hypertension Sister Cancer Hypertension Diabetes Mother Hypertension Diabetes Unknown Coronary heart disease Father Coronary heart disease Daughter Breast cancer Social History Preferred Language: Uzbek Communication Ability: Effective Herb Counselor Required: No Beliefs That Will Affect Care: None Current Living Situation: Spouse Other Information That Helps Us Care for You: No Feels Safe at Home: Yes Safety Concerns: Feels Safe At This Time Smoking Status: Former smoker Do You Dip or Chew Tobacco: No ; Smoking End Date: 25 years ago ; Second Hand Exposure: No ; Hx Alcohol Use: No Hx Substance Use: No Physical Exam Physical Exam: General: No acute distress HEENT: Normocephalic atraumatic Neck: No significant lymphadenopathy, trachea midline, normal to visual inspection Cardiac: Regular rate and rhythm, normal S1, normal S2, I did not appreciated any significant murmurs rubs or gallops, I did not appreciate any significant pedal edema, No calf tenderness, capillary refill is less than 3 seconds Respiratory: Clear to auscultation bilaterally with symmetrical chest rise, I did not appreciate any significant wheezes, rales, rhonchi, no increased work of breathing GI: Normal bowel sounds, soft, nontender in all 4 quadrants, nondistended MSK: No sensory or motor changes, moves all extremities without issue, extremities are warm and well-perfused Skin: [place], clean, dry, intact. Surgical site clean dry and intact Neuro: Alert and oriented x4 Psych: Calm, cooperative, logical thought process Results & Data Vital Signs (Past 12 Hours) Vital Signs Temp Pulse Resp BP Pulse Ox 09/24/19 13:45 85 24 95 09/24/19 13:40 85 24 125/79 95 09/24/19 13:31 82 24 141/80 H 96 09/24/19 13:30 85 93 09/24/19 13:20 79 23 131/71 94 09/24/19 13:15 80 20 91 09/24/19 13:10 81 24 121/68 92 09/24/19 13:00 36.7 C 81 23 120/68 95 09/24/19 12:50 84 26 H 120/67 94 09/24/19 11:33 93 09/24/19 11:30 83 20 124/74 92 09/24/19 11:27 36.6 C 76 14 112/71 92 09/24/19 11:23 77 15 93 09/24/19 11:20 78 17 112/71 91 Laboratory Results 09/24/19 09/24/19 09/24/19 Range/Units 15:05 13:10 13:08 WBC (4.8-10.8) K/uL RBC (4.7-6.1) M/uL Hgb (14.0-18.0) g/dL POC Hgb (14.0-18.0) g/dl Hct (42-52) % POC Hct (42-52) % MCV (80-100) fL MCH (25-34) pg MCHC (32-36) g/dL RDW Std Deviation (36.4-46.3) fL RDW Coeff of Falguni (11.5-14.5) % Plt Count (130-400) K/uL MPV (7.4-10.4) fL Immature Gran % (Auto) % Neut % (Auto) % Lymph % (Auto) % [place] % (Auto) % Eos % (Auto) % Baso % (Auto) % Immature Gran # (Auto) (0.00-0.02) K/uL Neut # (Auto) (1.4-6.5) K/uL Lymph # (Auto) (1.2-3.4) K/uL [place] # (Auto) (0.11-0.59) K/uL Eos # (Auto) (0-0.5) K/uL Baso # (Auto) (0-0.2) K/uL PT (9.0-12.0) Seconds INR (0.9-1.1) APTT (21.0-31.0) Seconds PTT Ratio POC Sodium (135-144) mEq/L Sodium (136-145) mmol/L POC Potassium (3.3-5.0) mEq/L Potassium (3.5-5.1) mmol/L POC Chloride (101-112) mEq/L Chloride (98-107) mmol/L Carbon Dioxide (21-32) mmol/L POC Total CO2 (24-31) mEq/l Anion Gap (3-11) POC Anion Gap (16-25) mmol/L POC BUN (7-18) mg/dl BUN (7-18) mg/dl Creatinine (0.6-1.4) mg/dl POC Creatinine (0.6-1.3) mg/dl Est Cr Clr Drug Dosing ml/min Est GFR ( Amer) Est GFR (Non-Af Amer) BUN/Creatinine Ratio (10-20) Glucose (70-99) mg/dl POC Glucose 86 (70-99) POC Glucose (other) (70-99) mg/dl Calcium (8.5-10.1) mg/dl POC Ioniz Calcium Best (1.12-1.32) mmol/l Magnesium (1.8-2.4) mg/dl Total Bilirubin (0.2-1) mg/dl AST (15-37) U/L ALT (12-78) U/L Alkaline Phosphatase (45-117) U/L Troponin I (0-0.045) ng/ml Total Protein (6.4-8.2) gm/dl Albumin (3.4-5.0) gm/dl Globulin (2.5-4.0) gm/dl Albumin/Globulin Ratio (0.9-2) TSH (0.300-4.500) uIu/ml Urine Color Pending Urine Appearance Pending Urine pH Pending Ur Specific [place] Pending Urine Protein Pending Urine Glucose (UA) Pending Urine Ketones Pending Urine Blood Pending Urine Nitrite Pending Urine Bilirubin Pending Urine Urobilinogen Pending Ur Leukocyte Esterase Pending Nasal Screen MRSA (PCR) Pending 09/24/19 09/24/19 09/24/19 Range/Units 11:29 11:29 11:29 WBC 10.23 (4.8-10.8) K/uL RBC 4.56 L (4.7-6.1) M/uL Hgb 14.0 (14.0-18.0) g/dL POC Hgb (14.0-18.0) g/dl Hct 41.4 L (42-52) % POC Hct (42-52) % MCV 90.8 (80-100) fL MCH 30.7 (25-34) pg MCHC 33.8 (32-36) g/dL RDW Std Deviation 47.4 H (36.4-46.3) fL RDW Coeff of Falguni 14.3 (11.5-14.5) % Plt Count 228 (130-400) K/uL MPV 10.5 H (7.4-10.4) fL Immature Gran % (Auto) 1.5 % Neut % (Auto) 74.9 % Lymph % (Auto) 11.4 % Rab[place] % (Auto) 11.0 % Eos % (Auto) 0.9 % Baso % (Auto) 0.3 % Immature Gran # (Auto) 0.15 H (0.00-0.02) K/uL Neut # (Auto) 7.66 H (1.4-6.5) K/uL Lymph # (Auto) 1.17 L (1.2-3.4) K/uL Rab[place] # (Auto) 1.13 H (0.11-0.59) K/uL Eos # (Auto) 0.09 (0-0.5) K/uL Baso # (Auto) 0.03 (0-0.2) K/uL PT 10.9 (9.0-12.0) Seconds INR 1.1 (0.9-1.1) APTT 26.1 (21.0-31.0) Seconds PTT Ratio 1.0 POC Sodium (135-144) mEq/L Sodium 140 (136-145) mmol/L POC Potassium (3.3-5.0) mEq/L Potassium 4.1 (3.5-5.1) mmol/L POC Chloride (101-112) mEq/L Chloride 108 H (98-107) mmol/L Carbon Dioxide 28 (21-32) mmol/L POC Total CO2 (24-31) mEq/l Anion Gap 4.0 (3-11) POC Anion Gap (16-25) mmol/L POC BUN (7-18) mg/dl BUN 18 (7-18) mg/dl Creatinine 1.24 (0.6-1.4) mg/dl POC Creatinine (0.6-1.3) mg/dl Est Cr Clr Drug Dosing 51.0 ml/min Est GFR ( Amer) 61.9 Est GFR (Non-Af Amer) 53.4 BUN/Creatinine Ratio 14.6 (10-20) Glucose 93 (70-99) mg/dl POC Glucose (70-99) POC Glucose (other) (70-99) mg/dl Calcium 8.7 (8.5-10.1) mg/dl POC Ioniz Calcium Best (1.12-1.32) mmol/l Magnesium 2.1 (1.8-2.4) mg/dl Total Bilirubin 0.9 (0.2-1) mg/dl AST 13 L (15-37) U/L ALT 21 (12-78) U/L Alkaline Phosphatase 48 (45-117) U/L Troponin I < 0.015 (0-0.045) ng/ml Total Protein 6.8 (6.4-8.2) gm/dl Albumin 2.5 L (3.4-5.0) gm/dl Globulin 4.3 H (2.5-4.0) gm/dl Albumin/Globulin Ratio 0.6 L (0.9-2) TSH 2.490 (0.300-4.500) uIu/ml Urine Color Urine Appearance Urine pH Ur Specific [place] Urine Protein Urine Glucose (UA) Urine Ketones Urine Blood Urine Nitrite Urine Bilirubin Urine Urobilinogen Ur Leukocyte Esterase Nasal Screen MRSA (PCR) 09/24/19 Range/Units 11:28 WBC (4.8-10.8) K/uL RBC (4.7-6.1) M/uL Hgb (14.0-18.0) g/dL POC Hgb 13.6 L (14.0-18.0) g/dl Hct (42-52) % POC Hct 40 L (42-52) % MCV (80-100) fL MCH (25-34) pg MCHC (32-36) g/dL RDW Std Deviation (36.4-46.3) fL RDW Coeff of Falguni (11.5-14.5) % Plt Count (130-400) K/uL MPV (7.4-10.4) fL Immature Gran % (Auto) % Neut % (Auto) % Lymph % (Auto) % [place] % (Auto) % Eos % (Auto) % Baso % (Auto) % Immature Gran # (Auto) (0.00-0.02) K/uL Neut # (Auto) (1.4-6.5) K/uL Lymph # (Auto) (1.2-3.4) K/uL [place] # (Auto) (0.11-0.59) K/uL Eos # (Auto) (0-0.5) K/uL Baso # (Auto) (0-0.2) K/uL PT (9.0-12.0) Seconds INR (0.9-1.1) APTT (21.0-31.0) Seconds PTT Ratio POC Sodium 139 (135-144) mEq/L Sodium (136-145) mmol/L POC Potassium 4.2 (3.3-5.0) mEq/L Potassium (3.5-5.1) mmol/L POC Chloride 103 (101-112) mEq/L Chloride (98-107) mmol/L Carbon Dioxide (21-32) mmol/L POC Total CO2 26 (24-31) mEq/l Anion Gap (3-11) POC Anion Gap 16.0 (16-25) mmol/L POC BUN 19 H (7-18) mg/dl BUN (7-18) mg/dl Creatinine (0.6-1.4) mg/dl POC Creatinine 1.3 (0.6-1.3) mg/dl Est Cr Clr Drug Dosing ml/min Est GFR ( Amer) Est GFR (Non-Af Amer) BUN/Creatinine Ratio (10-20) Glucose (70-99) mg/dl POC Glucose (70-99) POC Glucose (other) 94 (70-99) mg/dl Calcium (8.5-10.1) mg/dl POC Ioniz Calcium Best 1.24 (1.12-1.32) mmol/l Magnesium (1.8-2.4) mg/dl Total Bilirubin (0.2-1) mg/dl AST (15-37) U/L ALT (12-78) U/L Alkaline Phosphatase (45-117) U/L Troponin I (0-0.045) ng/ml Total Protein (6.4-8.2) gm/dl Albumin (3.4-5.0) gm/dl Globulin (2.5-4.0) gm/dl Albumin/Globulin Ratio (0.9-2) TSH (0.300-4.500) uIu/ml Urine Color Urine Appearance Urine pH Ur Specific [place] Urine Protein Urine Glucose (UA) Urine Ketones Urine Blood Urine Nitrite Urine Bilirubin Urine Urobilinogen Ur Leukocyte Esterase Nasal Screen MRSA (PCR) Medications Administered Current Inpatient Medications Albuterol (Ventolin 0.083% 2.5mg/3ml) 2.5 mg NEB Q4H PRN PRN Reason: Shortness Of Breath Or Wheezing Stop: 10/24/19 14:48 [facility] [place]: 10/25/19 08:59 Carvedilol (Coreg) 3.125 mg PO BID [facility] Stop: 10/24/19 20:59 Clopidogrel Bisulfate (Plavix) [facility] [place]: 10/25/19 08:59 Levofloxacin (Levaquin) 750 mg PO DAILY@1100 [facility] Stop: 10/01/19 10:59 Resident Activity Tracking Resident Involvement: Resident Care Provided Care Provided: Adult Hospital Medicine (ICU) (1) Acute ST elevation myocardial infarction (STEMI) Involved coronary artery: unspecified coronary artery Qualified Code(s): I21.3 - ST elevation (STEMI) myocardial infarction of unspecified site (2) 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 (3) Pneumonia Laterality: unspecified laterality Lung location: unspecified part of lung Pneumonia type: due to unspecified organism Qualified Code(s): J18.9 - Pneumonia, unspecified organism
[2019-09-24] MEDS ORDERED: levoFLOXacin 750 MG TAB PO ONE (14:30)
[2019-09-24] MEDS ORDERED: ALBUTEROL 0.083% NEBU SOLN 3 ML VIAL NEB PRN (14:49)
[2019-09-24 15:30] LABS: Appearance Urine Clear (Clear); Bilirubin Urine Negative (Negative); Blood Urine Trace (Negative); Color Urine Yellow; Glucose Urine UA Negative (Negative); Ketones Urine Negative (Negative); Leukocyte Esterase Urine Negative (Negative); Nitrite Urine Negative (Negative); Protein Urine Negative (Negative); Urobilinogen Urine Negative (Negative)
[2019-09-24 15:40] LABS: Bacteria Urine Negative (Negative); RBC Urine 0-4 /hpf (0-4); WBC Urine 0-5 /hpf (0-5)
--- NOTE | 2019-09-24 17:46 | Emergency Department Note ---
Entered by Benjamin Naryaan acting as a scribe for ED Provider Note CHIEF COMPLAINT: Chest pain HISTORY OF PRESENT ILLNESS: The patient is an 84 year old male who presents to the Emergency Room with complaints of constant chest pain that started about an hour prior to arrival. The patient rates the pain as a 10/10 at initial onset. Per EMS, the patient received 4 Nitro, 324mg of Aspirin, and 50mcg of Fentanyl en route however upon arrival to the ED his pain was only reduced to a 9/10. The patient reports feeling short of breath, diaphoretic and extremely fatigued since the onset of the chest pain. The patient does have a history of a heart attack and 4 stents and follows with Dr. Sabillon for cardiology. The patient was recently hospitalized for pneumonia. Per the family when they arrived at the patient's house he looked pale, clammy and was slightly disoriented. The patient also has a history of lung cancer that required the left upper lobe of his lung to be removed. The patient does not use supplemental oxygen at baseline. Pt denies LOC, headache, fevers, chills, visual changes, neck pain, nausea, vomiting, abdominal pain, back pain, melena, hematochezia, urinary symptoms, numbness, weakness, lymphadenopathy, rash, or other complaints. REVIEW OF SYSTEMS: See HPI for pertinent positives and negatives. A total of ten systems were reviewed and were otherwise negative. PMHx/PSHx: STEMI, CAD, COPD, Lung cancer, HTN, HLD, DVT, Cerebral aneurysm SOCIAL HISTORY: Patient lives at home. . PHYSICAL EXAM: GENERAL: Awake, alert, uncomfortable-appearing, in no acute distress HENT: Normocephalic, atraumatic. Oropharynx unremarkable. EYES: Normal conjunctiva. Sclera non-icteric. NECK: Inspection normal. Non-tender. Supple. No nuchal rigidity. FROM. No masses. RESPIRATORY: Clear to auscultation. No wheezes. No rales. Normal respiratory effort. CARDIAC: Normal rate. Normal rhythm. No murmurs. No rubs. Extremities warm and well perfused. Pulses equal. No JVD. GI: Soft, non-distended. No tenderness to palpation. No rebound or guarding. No masses. RECTAL: Deferred. MUSCULOSKELETAL: Atraumatic. Chest examination reveals no tenderness. The back is symmetrical on inspection without obvious abnormality. There is no CVA tenderness to palpation. No joint edema. LOWER EXTREMITIES: Calves are equal size bilaterally and non-tender. No edema. No discoloration. NEURO: Normal sensorium. No sensory or motor deficits noted. SKIN: No rash or jaundice noted. EMERGENCY DEPARTMENT COURSE: 1116: Past medical records reviewed. A heart alert was called 12 minutes before the patient arrived. The patient was evaluated in room B01, and a complete history and physical examination were performed. 1125: Dr. Myers - Wolfgang was present at bedside upon the arrival of the patient and will be taking the patient to the computer lab para professional for further intervention. 1133: The patient reports his pain has improved to a 6/10. 1138: The patient has been taken to the computer lab para professional. MEDICAL DECISION MAKING: B1 Prior records/ancillary studies reviewed. Patient recently treated for left- sided pneumonia. Nursing notes reviewed and agree them. Additional history obtained from family and EMS. The patient's history was concerning for chest pain. Differential diagnosis: Etiologies such as cardiac ischemia, aortic dissection, pulmonary embolism, esophageal rupture, pneumonia, pneumothorax, musculoskeletal, infections, gastrointestinal, as well as others were entertained. Physical examination: Patient was uncomfortable. Physical exam is as above. ER treatment provided: Aspirin nitroglycerin given prehospital. IVP Fentanyl On reassessment the patient felt better. Diagnostic interpretation: The electrocardiogram was significant for an acute myocardial infarction. The labs revealed normal chemistries by i-STAT. The patient is having an acute myocardial infarction. The heart alert was initiated prehospital. Patient was still having pain despite the medications above. Consultation: A consultation was placed with Dr. Myers of interventional cardiology. He promptly arrived in the ER and evaluated the patient and agreed with the assessment of an AMI. The patient was taken emergently to the catheterization laboratory for cardiac intervention. CRITICAL CARE: I have personally spent greater than 30 minutes of critical care time in the direct management of this patient. This includes bedside care, interpretation of diagnostic studies, and testing, discussion with consultants, patient, and family members, and other required patient management activities. This 30 minutes is in excess of all separately billable procedures. IMPRESSION: Acute STEMI PLAN: Admitted as inpatient The scribe's documentation has been prepared under my direction and personally reviewed by me in its entirety. I confirm that the note above accurately reflects all work, treatment, procedures, and medical decision making performed by me. Impression & Plan Acute ST elevation myocardial infarction (STEMI) Past Med/Surg History Medical History Abnormal EKG (Deleted) CAD (coronary artery disease) (Acute) Cancer of lung (Resolved) 1998 LOBECTOMY. 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 HEMIPLEGIC MIGRAINE AND NO PROBLEMS SINCE Hyperlipidemia Hypertension (Chronic) Pulmonary emphysema (Acute) Solitary pulmonary nodule (Acute) STEMI (ST elevation myocardial infarction) (Resolved) 4 STENT 2016 Unstable angina (Deleted) Vitamin D deficiency (Chronic) Surgical History History of cardiac catheterization (Chronic ~2016) 2016 [place] WITH [address] SABILLON LAST SEEN 06/23/18 Hx of cataract surgery S/P appendectomy S/P excision of lipoma (Resolved) S/P lobectomy of lung LEFT S/P total knee arthroplasty LEFT Stented coronary artery (Deleted) Family History Brother Cancer Hypertension Sister Cancer Hypertension Diabetes Mother Hypertension Diabetes Unknown Coronary heart disease Father Coronary heart disease Daughter Breast cancer Social History Preferred Language: Lithuanian Communication Ability: Effective Manager English Required: No Beliefs That Will Affect Care: None Current Living Situation: Spouse Other Information That Helps Us Care for You: No Feels Safe at Home: Yes Safety Concerns: Feels Safe At This Time Smoking Status: Former smoker Do You Dip or Chew Tobacco: No ; Smoking End Date: 25 years ago ; Second Hand Exposure: No ; Hx Alcohol Use: No Hx Substance Use: No Results & Data Vital Signs Vital Signs - 24 hr 09/24/19 11:20 09/24/19 11:23 09/24/19 11:27 Temperature 36.6 C Temperature Source Oral Pulse Rate 78 77 76 Pulse Rate from SpO2 Sensor 77 73 Pulse Rhythm Regular Pulse Strength Normal Respiratory Rate 17 15 14 Respiratory Effort / Characteristics Non-Labored Spontaneous Respiratory Depth Normal Respiratory Pattern Regular Blood Pressure 112/71 112/71 Blood Pressure Mean 85 84 Pulse Oximetry 91 93 92 Oxygen Delivery Method Room Air Sepsis Recent Fever Within 48 Hours No Sepsis New/Unexplained Change in Mental Status No Sepsis Action Taken by Nursing No Action Required 09/24/19 11:30 09/24/19 11:33 09/24/19 12:50 Temperature Temperature Source Pulse Rate 83 84 Pulse Rate from SpO2 Sensor 84 Pulse Rhythm Pulse Strength Respiratory Rate 20 26 H Respiratory Effort / Characteristics Respiratory Depth Respiratory Pattern Blood Pressure 124/74 120/67 Blood Pressure Mean 80 87 Pulse Oximetry 92 93 94 Oxygen Delivery Method Room Air Sepsis Recent Fever Within 48 Hours Sepsis New/Unexplained Change in Mental Status Sepsis Action Taken by Skilled Nursing Medications Current Medication List: was personally reviewed by me Laboratory Data Attestation: I reviewed the patient's lab results. Result diagrams: 09/24/19 11:29 09/24/19 11:29 Lab Results 09/24/19 09/24/19 09/24/19 Range/Units 11:28 11:29 11:29 WBC 10.23 (4.8-10.8) K/uL RBC 4.56 L (4.7-6.1) M/uL Hgb 14.0 (14.0-18.0) g/dL POC Hgb 13.6 L (14.0-18.0) g/dl Hct 41.4 L (42-52) % POC Hct 40 L (42-52) % MCV 90.8 (80-100) fL MCH 30.7 (25-34) pg MCHC 33.8 (32-36) g/dL RDW Std Deviation 47.4 H (36.4-46.3) fL RDW Coeff of Falguni 14.3 (11.5-14.5) % Plt Count 228 (130-400) K/uL MPV 10.5 H (7.4-10.4) fL Immature Gran % (Auto) 1.5 % Neut % (Auto) 74.9 % Lymph % (Auto) 11.4 % [place] % (Auto) 11.0 % Eos % (Auto) 0.9 % Baso % (Auto) 0.3 % Immature Gran # (Auto) 0.15 H (0.00-0.02) K/uL Neut # (Auto) 7.66 H (1.4-6.5) K/uL Lymph # (Auto) 1.17 L (1.2-3.4) K/uL [place] # (Auto) 1.13 H (0.11-0.59) K/uL Eos # (Auto) 0.09 (0-0.5) K/uL Baso # (Auto) 0.03 (0-0.2) K/uL PT 10.9 (9.0-12.0) Seconds INR 1.1 (0.9-1.1) APTT 26.1 (21.0-31.0) Seconds PTT Ratio 1.0 POC Sodium 139 (135-144) mEq/L Sodium (136-145) mmol/L POC Potassium 4.2 (3.3-5.0) mEq/L Potassium (3.5-5.1) mmol/L POC Chloride 103 (101-112) mEq/L Chloride (98-107) mmol/L Carbon Dioxide (21-32) mmol/L POC Total CO2 26 (24-31) mEq/l Anion Gap (3-11) POC Anion Gap 16.0 (16-25) mmol/L POC BUN 19 H (7-18) mg/dl BUN (7-18) mg/dl Creatinine (0.6-1.4) mg/dl POC Creatinine 1.3 (0.6-1.3) mg/dl Est Cr Clr Drug Dosing ml/min Est GFR ( Amer) Est GFR (Non-Af Amer) BUN/Creatinine Ratio (10-20) Glucose (70-99) mg/dl POC Glucose (other) 94 (70-99) mg/dl Calcium (8.5-10.1) mg/dl POC Ioniz Calcium Best 1.24 (1.12-1.32) mmol/l Magnesium (1.8-2.4) mg/dl Total Bilirubin (0.2-1) mg/dl AST (15-37) U/L ALT (12-78) U/L Alkaline Phosphatase (45-117) U/L Troponin I (0-0.045) ng/ml Total Protein (6.4-8.2) gm/dl Albumin (3.4-5.0) gm/dl Globulin (2.5-4.0) gm/dl Albumin/Globulin Ratio (0.9-2) TSH (0.300-4.500) uIu/ml 12/14/19 Range/Units 11:29 WBC (4.8-10.8) K/uL RBC (4.7-6.1) M/uL Hgb (14.0-18.0) g/dL POC Hgb (14.0-18.0) g/dl Hct (42-52) % POC Hct (42-52) % MCV (80-100) fL MCH (25-34) pg MCHC (32-36) g/dL RDW Std Deviation (36.4-46.3) fL RDW Coeff of Falguni (11.5-14.5) % Plt Count (130-400) K/uL MPV (7.4-10.4) fL Immature Gran % (Auto) % Neut % (Auto) % Lymph % (Auto) % [place] % (Auto) % Eos % (Auto) % Baso % (Auto) % Immature Gran # (Auto) (0.00-0.02) K/uL Neut # (Auto) (1.4-6.5) K/uL Lymph # (Auto) (1.2-3.4) K/uL [place] # (Auto) (0.11-0.59) K/uL Eos # (Auto) (0-0.5) K/uL Baso # (Auto) (0-0.2) K/uL PT (9.0-12.0) Seconds INR (0.9-1.1) APTT (21.0-31.0) Seconds PTT Ratio POC Sodium (135-144) mEq/L Sodium 140 (136-145) mmol/L POC Potassium (3.3-5.0) mEq/L Potassium 4.1 (3.5-5.1) mmol/L POC Chloride (101-112) mEq/L Chloride 108 H (98-107) mmol/L Carbon Dioxide 28 (21-32) mmol/L POC Total CO2 (24-31) mEq/l Anion Gap 4.0 (3-11) POC Anion Gap (16-25) mmol/L POC BUN (7-18) mg/dl BUN 18 (7-18) mg/dl Creatinine 1.24 (0.6-1.4) mg/dl POC Creatinine (0.6-1.3) mg/dl Est Cr Clr Drug Dosing 51.0 ml/min Est GFR ( Amer) 61.9 Est GFR (Non-Af Amer) 53.4 BUN/Creatinine Ratio 14.6 (10-20) Glucose 93 (70-99) mg/dl POC Glucose (other) (70-99) mg/dl Calcium 8.7 (8.5-10.1) mg/dl POC Ioniz Calcium Best (1.12-1.32) mmol/l Magnesium 2.1 (1.8-2.4) mg/dl Total Bilirubin 0.9 (0.2-1) mg/dl AST 13 L (15-37) U/L ALT 21 (12-78) U/L Alkaline Phosphatase 48 (45-117) U/L Troponin I < 0.015 (0-0.045) ng/ml Total Protein 6.8 (6.4-8.2) gm/dl Albumin 2.5 L (3.4-5.0) gm/dl Globulin 4.3 H (2.5-4.0) gm/dl Albumin/Globulin Ratio 0.6 L (0.9-2) TSH 2.490 (0.300-4.500) uIu/ml Administered Medications Discontinued Medications Dexamethasone Sodium Phosphate (Decadron Pf) 10 mg IV NOW ONE Stop: 09/24/19 11:28 Last Admin: 09/24/19 11:35 Dose: 10 mg Documented by: [id number] Diphenhydramine HCl (Benadryl) 25 mg IV NOW STA Stop: 09/24/19 11:28 Last Admin: 09/24/19 11:35 Dose: 25 mg Documented by: [id number] Famotidine (Pepcid 20mg Iv Push) 20 mg IV ONE STA Stop: 09/24/19 11:28 Last Admin: 09/24/19 11:35 Dose: 20 mg Documented by: [id number] Fentanyl Citrate (Fentanyl Citrate) Confirm Administered Dose 100 mcg .ROUTE .STK-MED ONE Stop: 09/24/19 11:29 Last Increment: 09/24/19 12:37 Dose: 25 mcg Documented by: [id number] Heparin Sodium (Porcine) (Heparin Iv Bolus (Care Trainer Use Only)) Confirm Administered Dose 10,000 units .ROUTE .STK-MED ONE Stop: 09/24/19 11:29 Last Admin: 09/24/19 13:58 Dose: Not Given Documented by: [id number] Heparin Sodium (Porcine) (Heparin Iv Bolus (Care Trainer Use Only)) Confirm Administered Dose 10,000 units .ROUTE .STK-MED ONE Stop: 09/24/19 12:27 Last Admin: 09/24/19 13:59 Dose: Not Given Documented by: [id number] Heparin Sodium/Sodium Chloride (Heparin/Nss 1000 Unit/500ml Flush Bag) Confirm Administered Dose 3,000 units IV .STK-MED ONE Stop: 09/24/19 11:29 Last Admin: 09/24/19 13:58 Dose: Not Given Documented by: [id number] Levofloxacin (Levaquin) 750 mg PO ONE ONE Stop: 09/24/19 14:31 Last Admin: 09/24/19 15:07 Dose: 750 mg Documented by: [id number] Midazolam HCl (Versed) Confirm Administered Dose 2 mg .ROUTE .STK-MED ONE Stop: 09/24/19 11:29 Last Admin: 09/24/19 13:59 Dose: Not Given Documented by: [id number] Nicardipine HCl (Cardene) Confirm Administered Dose 25 mg .ROUTE .STK-MED ONE Stop: 09/24/19 11:29 Last Admin: 09/24/19 13:58 Dose: Not Given Documented by: [id number] Nitroglycerin/Dextrose (Nitroglycerin/D5w 100 Mcg/Ml 20ml Syringe) Confirm Ad ministered Dose 2,000 mcg .ROUTE .STK-MED ONE Stop: 09/24/19 11:30 Last Admin: 09/24/19 13:59 Dose: Not Given Documented by: [id number] ECG Data Attestation: I personally reviewed and interpreted this ECG as follows: Indication: + chest pain Rate (beats per minute): 76 Rhythm: normal sinus ECG Intervals/blocks: + Left anterior fascicular block ECG ST segments: + ST depression (reciprocal inferior changes ) and + ST tj vation (Anterior) ECG Findings: + LVH and + Other (Wide QRS) Comparison ECG Date: from (09/19/19) Change: the following changes noted (ST elevation is new) Blood Pressure Blood Pressure Findings: Elevated blood pressure Blood Pressure Disposition: further management by hospitalist Discharge Plan Visit Data Chief Complaint: Heart Alert ED Provider: Manuel Grace Discharge Problem: Acute ST elevation myocardial infarction (STEMI) Patient Disposition: Admitted As Inpatient Discharge Instructions Interventions: ED Discharge Assessment Last Done: 09/24/19 11:37 Discharge Problem: Acute ST elevation myocardial infarction (STEMI) Qualifiers: Involved coronary artery: unspecified coronary artery Qualified Code(s): I21.3 - ST elevation (STEMI) myocardial infarction of unspecified site The scribe's documentation has been prepared under my direction and personally reviewed by me in its entirety. I confirm that the note above accurately reflects all work, treatment, procedures, and medical decision making performed by me.
[2019-09-24] MEDS: carvediloL 3.125 MG TAB PO SCH (21:27)
[2019-09-25] MEDS ORDERED: ALBUTEROL HFA 8 GM INHALER INH PRN (03:14)
--- NOTE | 2019-09-25 03:16 | Critical Care Progress Note ---
Date of Service September 25, 2019 Assessment & Plan (1) Admitted to intensive care unit: Reason Critically Ill: 84-year-old male here for stemi with successful pci. Past medical history significant for coronary artery disease, lung cancer, cerebral aneurysm, complicated migraine, COPD, hyperlipidemia hypertension, pulmonary emphysema history of a STEMI with 4 stents placed in 2016, recent discharge from [facility] for pneumonia Neuro: -CAM ICU: NEGATIVE -Monitor for signs and symptoms of pain Cardiac: Status cardiac catheterization with PCI for diagnosed STEMI -Routine postoperative care -Notify physician with chest pain -On DAPT with clopidogrel and aspirin -On carvedilol, not on statin secondary to history of allergy -consider repatha -Needs an SUZY or an ARB -defer to cards -Resume verapamil & topamax tomorrow morning -resumed home meds Respiratory: History of pneumonia Patient recently discharged on 09/22 from [facility], she was treated for pneumonia. -Continue Levaquin GI: -Heart healthy diet diet RENAL/LYTES: - No significant electrolyte derangement, f/u am labs -Replace lytes as needed. -Cr stable : - No concerns at this time. ENDO: -no hx of dm HEME: - Stable H&H. ID: -See respiratory -Monitor fever curve. INTEGUMENTARY: -Surgical site clean dry and intact LINES/IV ACCESS: -PIVs intact. DVT PROPHYLAXIS: -Lovenox 40 mg subcu daily first dose this evening Dispo: stable for tx to tele Thank you for allowing us to be part of this patient's care. Please refer to Dr. Santiago's documentation for any further recommendations. (2) Acute ST elevation myocardial infarction (STEMI): (3) Pneumonia: (4) H/O: lung cancer: (5) Pulmonary emphysema: (6) Dyslipidemia: (7) Chronic osteoarthritis: (8) Seroma after procedure: (9) Hyperlipidemia: (10) Hypertension: (11) COPD (chronic obstructive pulmonary disease): (12) Cancer of lung: Supervising Physician Co-Signing Physician Notes Dr. Resendiz was the resident-physician during care of patient. I separately evaluated patient for mccord portions of the history and the exam. I was present during the critical portion of medical decision making, and I discussed the case with the resident. I generally agree with the findings and plan except for any additions/exceptions noted. Patient is doing very well since catheterization yesterday. Continue antiplatelet therapy. He has had adverse reactions to statins in the past and will defer management to cardiology regarding this. Continue Levaquin for his recent pneumonia. He is stable to be transferred to the floor and apparently already has been transferred. Thank you for this interesting consult. Subjective Patient sleeping comfortably in bed in no acute distress. Patient has been tolerating his diet, voiding, no bowel movement, sleeping. No acute events overnight. Patient continues to improve from a clinical standpoint, no acute concerns at present, all questions answered. Physical Exam Physical Exam: General: Sleeping gentleman in no acute distress HEENT: Normocephalic atraumatic Neck: No significant lymphadenopathy, trachea midline, normal to visual inspection Cardiac: Regular rate and rhythm, normal S1, normal S2, I did not appreciated any significant murmurs rubs or gallops, I did not appreciate any significant pedal edema, No calf tenderness, capillary refill is less than 3 seconds Respiratory: Clear to auscultation bilaterally with symmetrical chest rise, I did not appreciate any significant wheezes, rales, rhonchi, no increased work of breathing GI: Normal bowel sounds, soft, nontender in all 4 quadrants, nondistended MSK: No sensory or motor changes, moves all extremities without issue, extremities are warm and well-perfused Skin: [place], clean, dry, intact. Surgical site clean dry and intact Neuro: Alert and oriented x4 Psych: Calm, cooperative, logical thought process Results & Data Vital Signs (Past 12 Hours) Vital Signs Temp Pulse Resp BP Pulse Ox 09/25/19 02:04 81 21 146/90 H 92 09/25/19 01:34 81 21 141/83 H 92 09/25/19 01:04 79 19 159/82 H 93 09/25/19 00:34 78 21 152/84 H 93 09/25/19 00:04 75 22 143/81 H 94 09/24/19 23:34 78 24 149/85 H 94 09/24/19 23:04 83 20 141/82 H 93 09/24/19 22:34 85 19 127/72 92 09/24/19 22:04 84 21 142/86 H 93 09/24/19 21:34 93 H 24 157/102 H 95 09/24/19 21:04 84 26 H 145/85 H 94 09/24/19 20:34 84 30 H 142/74 H 95 09/24/19 20:04 36.5 C 91 H 27 H 161/92 H 95 09/24/19 19:34 90 23 155/85 H 95 09/24/19 19:04 84 23 142/82 H 93 09/24/19 18:04 86 26 H 139/89 95 09/24/19 17:34 87 24 144/77 H 94 09/24/19 17:04 82 26 H 137/76 95 09/24/19 16:34 84 28 H 145/77 H 95 09/24/19 16:04 76 28 H 155/89 H 94 09/24/19 15:34 80 29 H 146/80 H 96 Laboratory Results 09/25/19 09/24/19 09/24/19 Range/Units 00:41 15:05 13:10 WBC (4.8-10.8) K/uL RBC (4.7-6.1) M/uL Hgb (14.0-18.0) g/dL POC Hgb (14.0-18.0) g/dl Hct (42-52) % POC Hct (42-52) % MCV (80-100) fL MCH (25-34) pg MCHC (32-36) g/dL RDW Std Deviation (36.4-46.3) fL RDW Coeff of Falguni (11.5-14.5) % Plt Count (130-400) K/uL MPV (7.4-10.4) fL Immature Gran % (Auto) % Neut % (Auto) % Lymph % (Auto) % Hayes % (Auto) % Eos % (Auto) % Baso % (Auto) % Immature Gran # (Auto) (0.00-0.02) K/uL Neut # (Auto) (1.4-6.5) K/uL Lymph # (Auto) (1.2-3.4) K/uL Hayes # (Auto) (0.11-0.59) K/uL Eos # (Auto) (0-0.5) K/uL Baso # (Auto) (0-0.2) K/uL PT (9.0-12.0) Seconds INR (0.9-1.1) APTT (21.0-31.0) Seconds PTT Ratio POC Sodium (135-144) mEq/L Sodium (136-145) mmol/L POC Potassium (3.3-5.0) mEq/L Potassium (3.5-5.1) mmol/L POC Chloride (101-112) mEq/L Chloride (98-107) mmol/L Carbon Dioxide (21-32) mmol/L POC Total CO2 (24-31) mEq/l Anion Gap (3-11) POC Anion Gap (16-25) mmol/L POC BUN (7-18) mg/dl BUN (7-18) mg/dl Creatinine (0.6-1.4) mg/dl POC Creatinine (0.6-1.3) mg/dl Est Cr Clr Drug Dosing ml/min Est GFR ( Amer) Est GFR (Non-Af Amer) BUN/Creatinine Ratio (10-20) Glucose (70-99) mg/dl POC Glucose 120 H (70-99) POC Glucose (other) (70-99) mg/dl Calcium (8.5-10.1) mg/dl POC Ioniz Calcium Best (1.12-1.32) mmol/l Magnesium (1.8-2.4) mg/dl Total Bilirubin (0.2-1) mg/dl AST (15-37) U/L ALT (12-78) U/L Alkaline Phosphatase (45-117) U/L Troponin I (0-0.045) ng/ml Total Protein (6.4-8.2) gm/dl Albumin (3.4-5.0) gm/dl Globulin (2.5-4.0) gm/dl Albumin/Globulin Ratio (0.9-2) TSH (0.300-4.500) uIu/ml Urine Color Yellow Urine Appearance Clear (Clear) Urine pH 6.0 (4.5-7.5) Ur Specific [place] 1.010 (1.000-1.030) Urine Protein Negative (Negative) Urine Glucose (UA) Negative (Negative) Urine Ketones Negative (Negative) Urine Blood Trace H (Negative) Urine Nitrite Negative (Negative) Urine Bilirubin Negative (Negative) Urine Urobilinogen Negative (Negative) Ur Leukocyte Esterase Negative (Negative) Urine RBC 0-4 (0-4) /hpf Urine WBC 0-5 (0-5) /hpf Ur Epithelial Cells 10-20 H (0-5) /lpf Urine Bacteria Negative (Negative) Nasal Screen MRSA (PCR) Negative (Negative) 09/24/19 09/24/19 09/24/19 Range/Units 13:08 11:29 11:29 WBC 10.23 (4.8-10.8) K/uL RBC 4.56 L (4.7-6.1) M/uL Hgb 14.0 (14.0-18.0) g/dL POC Hgb (14.0-18.0) g/dl Hct 41.4 L (42-52) % POC Hct (42-52) % MCV 90.8 (80-100) fL MCH 30.7 (25-34) pg MCHC 33.8 (32-36) g/dL RDW Std Deviation 47.4 H (36.4-46.3) fL RDW Coeff of Falguni 14.3 (11.5-14.5) % Plt Count 228 (130-400) K/uL MPV 10.5 H (7.4-10.4) fL Immature Gran % (Auto) 1.5 % Neut % (Auto) 74.9 % Lymph % (Auto) 11.4 % Hayes % (Auto) 11.0 % Eos % (Auto) 0.9 % Baso % (Auto) 0.3 % Immature Gran # (Auto) 0.15 H (0.00-0.02) K/uL Neut # (Auto) 7.66 H (1.4-6.5) K/uL Lymph # (Auto) 1.17 L (1.2-3.4) K/uL Hayes # (Auto) 1.13 H (0.11-0.59) K/uL Eos # (Auto) 0.09 (0-0.5) K/uL Baso # (Auto) 0.03 (0-0.2) K/uL PT (9.0-12.0) Seconds INR (0.9-1.1) APTT (21.0-31.0) Seconds PTT Ratio POC Sodium (135-144) mEq/L Sodium 140 (136-145) mmol/L POC Potassium (3.3-5.0) mEq/L Potassium 4.1 (3.5-5.1) mmol/L POC Chloride (101-112) mEq/L Chloride 108 H (98-107) mmol/L Carbon Dioxide 28 (21-32) mmol/L POC Total CO2 (24-31) mEq/l Anion Gap 4.0 (3-11) POC Anion Gap (16-25) mmol/L POC BUN (7-18) mg/dl BUN 18 (7-18) mg/dl Creatinine 1.24 (0.6-1.4) mg/dl POC Creatinine (0.6-1.3) mg/dl Est Cr Clr Drug Dosing 51.0 ml/min Est GFR ( Amer) 61.9 Est GFR (Non-Af Amer) 53.4 BUN/Creatinine Ratio 14.6 (10-20) Glucose 93 (70-99) mg/dl POC Glucose 86 (70-99) POC Glucose (other) (70-99) mg/dl Calcium 8.7 (8.5-10.1) mg/dl POC Ioniz Calcium Best (1.12-1.32) mmol/l Magnesium 2.1 (1.8-2.4) mg/dl Total Bilirubin 0.9 (0.2-1) mg/dl AST 13 L (15-37) U/L ALT 21 (12-78) U/L Alkaline Phosphatase 48 (45-117) U/L Troponin I < 0.015 (0-0.045) ng/ml Total Protein 6.8 (6.4-8.2) gm/dl Albumin 2.5 L (3.4-5.0) gm/dl Globulin 4.3 H (2.5-4.0) gm/dl Albumin/Globulin Ratio 0.6 L (0.9-2) TSH 2.490 (0.300-4.500) uIu/ml Urine Color Urine Appearance (Clear) Urine pH (4.5-7.5) Ur Specific [place] (1.000-1.030) Urine Protein (Negative) Urine Glucose (UA) (Negative) Urine Ketones (Negative) Urine Blood (Negative) Urine Nitrite (Negative) Urine Bilirubin (Negative) Urine Urobilinogen (Negative) Ur Leukocyte Esterase (Negative) Urine RBC (0-4) /hpf Urine WBC (0-5) /hpf Ur Epithelial Cells (0-5) /lpf Urine Bacteria (Negative) Nasal Screen MRSA (PCR) (Negative) 09/24/19 09/24/19 Range/Units 11:29 11:28 WBC (4.8-10.8) K/uL RBC (4.7-6.1) M/uL Hgb (14.0-18.0) g/dL POC Hgb 13.6 L (14.0-18.0) g/dl Hct (42-52) % POC Hct 40 L (42-52) % MCV (80-100) fL MCH (25-34) pg MCHC (32-36) g/dL RDW Std Deviation (36.4-46.3) fL RDW Coeff of Falguni (11.5-14.5) % Plt Count (130-400) K/uL MPV (7.4-10.4) fL Immature Gran % (Auto) % Neut % (Auto) % Lymph % (Auto) % Hayes % (Auto) % Eos % (Auto) % Baso % (Auto) % Immature Gran # (Auto) (0.00-0.02) K/uL Neut # (Auto) (1.4-6.5) K/uL Lymph # (Auto) (1.2-3.4) K/uL Hayes # (Auto) (0.11-0.59) K/uL Eos # (Auto) (0-0.5) K/uL Baso # (Auto) (0-0.2) K/uL PT 10.9 (9.0-12.0) Seconds INR 1.1 (0.9-1.1) APTT 26.1 (21.0-31.0) Seconds PTT Ratio 1.0 POC Sodium 139 (135-144) mEq/L Sodium (136-145) mmol/L POC Potassium 4.2 (3.3-5.0) mEq/L Potassium (3.5-5.1) mmol/L POC Chloride 103 (101-112) mEq/L Chloride (98-107) mmol/L Carbon Dioxide (21-32) mmol/L POC Total CO2 26 (24-31) mEq/l Anion Gap (3-11) POC Anion Gap 16.0 (16-25) mmol/L POC BUN 19 H (7-18) mg/dl BUN (7-18) mg/dl Creatinine (0.6-1.4) mg/dl POC Creatinine 1.3 (0.6-1.3) mg/dl Est Cr Clr Drug Dosing ml/min Est GFR ( Amer) Est GFR (Non-Af Amer) BUN/Creatinine Ratio (10-20) Glucose (70-99) mg/dl POC Glucose (70-99) POC Glucose (other) 94 (70-99) mg/dl Calcium (8.5-10.1) mg/dl POC Ioniz Calcium Best 1.24 (1.12-1.32) mmol/l Magnesium (1.8-2.4) mg/dl Total Bilirubin (0.2-1) mg/dl AST (15-37) U/L ALT (12-78) U/L Alkaline Phosphatase (45-117) U/L Troponin I (0-0.045) ng/ml Total Protein (6.4-8.2) gm/dl Albumin (3.4-5.0) gm/dl Globulin (2.5-4.0) gm/dl Albumin/Globulin Ratio (0.9-2) TSH (0.300-4.500) uIu/ml Urine Color Urine Appearance (Clear) Urine pH (4.5-7.5) Ur Specific [place] (1.000-1.030) Urine Protein (Negative) Urine Glucose (UA) (Negative) Urine Ketones (Negative) Urine Blood (Negative) Urine Nitrite (Negative) Urine Bilirubin (Negative) Urine Urobilinogen (Negative) Ur Leukocyte Esterase (Negative) Urine RBC (0-4) /hpf Urine WBC (0-5) /hpf Ur Epithelial Cells (0-5) /lpf Urine Bacteria (Negative) Nasal Screen MRSA (PCR) (Negative) Medications Administered Current Inpatient Medications Albuterol (Ventolin 0.083% 2.5mg/3ml) 2.5 mg NEB Q4H PRN PRN Reason: Shortness Of Breath Or Wheezing Stop: 10/24/19 14:48 [facility] [place]: 10/25/19 08:59 Carvedilol (Coreg) 3.125 mg PO BID [facility] Stop: 10/24/19 20:59 Last Admin: 09/24/19 21:27 Dose: 3.125 mg Documented by: Clopidogrel Bisulfate (Plavix) 75 mg PO QAM [facility] Stop: 10/25/19 08:59 Levofloxacin (Levaquin) 750 mg PO DAILY@1100 [facility] Stop: 10/01/19 10:59 Resident Activity Tracking Resident Involvement: Resident Care Provided Care Provided: Adult Hospital Medicine (ICU) (1) Acute ST elevation myocardial infarction (STEMI) Involved coronary artery: unspecified coronary artery Qualified Code(s): I21.3 - ST elevation (STEMI) myocardial infarction of unspecified site (2) 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 (3) Pneumonia Laterality: unspecified laterality Lung location: unspecified part of lung Pneumonia type: due to unspecified organism Qualified Code(s): J18.9 - Pneumonia, unspecified organism
[2019-09-25 04:53] LABS: Eosinophils # (auto) 0.01 K/uL (0-0.5); Eosinophils % (auto) 0.1 %; Hematocrit (blood only) 41.6 % (42-52); Hemoglobin 14.2 g/dL (14.0-18.0); Immature Granulocytes # (auto) 0.08 K/uL (0.00-0.02); Immature Granulocytes % (auto) 0.9 %; Lymphocytes # (auto) 0.67 K/uL (1.2-3.4); Lymphocytes % (auto) 7.4 %; Mean Corpuscular Hemoglobin 30.3 pg (25-34); Mean Corpuscular Hgb Conc 34.1 g/dL (32-36); Mean Corpuscular Volume 88.9 fL (80-100); Mean Platelet Volume 10.8 fL (7.4-10.4); Monocytes # (auto) 0.58 K/uL (0.11-0.59); Monocytes % (auto) 6.4 %; Neutrophils # (auto) 7.67 K/uL (1.4-6.5); Neutrophils % (auto) 85.2 %; Platelet Count 213 K/uL (130-400); RDW Coefficient of Variation 14.3 % (11.5-14.5); RDW Standard Deviation 46.6 fL (36.4-46.3); Red Blood Count 4.68 M/uL (4.7-6.1); White Blood Count 9.01 K/uL (4.8-10.8)
[2019-09-25 05:16] LABS: Albumin Level 2.5 gm/dl (3.4-5.0); BUN Creatinine Ratio 18.9 (10-20); Bilirubin Direct 0.1 mg/dl (0-0.2); Calcium 8.9 mg/dl (8.5-10.1); Creatinine Clr Calc Pharmacy 51.8 ml/min; Est GFR (African American) 63.2; Est GFR (Non-African American) 54.5; Magnesium 2.2 mg/dl (1.8-2.4); Potassium 4.5 mmol/L (3.5-5.1)
[2019-09-25 05:37] LABS: Bilirubin,Total 0.6 mg/dl (0.2-1); Total Protein 6.9 gm/dl (6.4-8.2); Troponin I 19.4 ng/ml (0-0.045)
[2019-09-25] MEDS: CHOLECALCIFEROL 1,000 UNITS TAB PO SCH ×2 (07:21→20:57)
[2019-09-25] MEDS: TOPIRAMATE 25 MG TAB PO SCH (07:21)
[2019-09-25] MEDS: carvediloL 3.125 MG TAB PO SCH (07:21)
[2019-09-25] MEDS: VERAPAMIL HCL 120 MG TABCR PO SCH (07:21)
[2019-09-25] MEDS: CLOPIDOGREL BISULFATE 75 MG TAB PO SCH (07:21)
[2019-09-25] MEDS ORDERED: ASPIRIN 325 MG ECTAB PO SCH (09:00)
--- NOTE | 2019-09-25 09:24 | Billing Data ---
Date of Service September 25, 2019 Coding Level of Care Code 11422 Subseq Hosp Care Lvl 2
[2019-09-25] MEDS: levoFLOXacin 750 MG TAB PO SCH (10:32)
--- NOTE | 2019-09-25 15:56 | Hospitalist Progress Note ---
Date of Service September 25, 2019 Assessment & Plan (1) Acute ST elevation myocardial infarction (STEMI): S/P successful PCI with stent to D1 Chest pain free following PCI ASA, Plavix. Dr Sahu to discuss with family regarding Brilinta tomorrow. Not on statin due to prior severe muscle aches on > 3 statins (atorvastatin, fluvastatin, rosuvastatin, and pravastatin). LDL 94. Will consult [facility] nurse navigator to determine eligibility/cost of PCSK 9 inhibitor. Will switch carvedilol to metoprolol as discussed with Dr Miranda to allow uptitration as blood pressure and heart rate allows given multifocal atrial tachycardia this morning. (2) Multifocal atrial tachycardia: Need to uptitrate beta-gene therefore will switch from carvedilol to metoprolol given blood pressure appears to be his limiting factor for up titration (3) Hypertension: Continue verapamil (primarily for prophylaxis for complex migraines) Switched carvedilol to metoprolol as above. 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 Current rash on lower lip, nose and b/l cheeks consistent with this without secondary bacterial infection at present. Suspect currently immunosuppressed given current pneumonia and STEMI. Rx Valtrex 2g BID for 1 day -> consider extended course if not improving. (5) COPD (chronic obstructive pulmonary disease): No exacerbation Continue Breo Ellipta prn Albuterol nebs. 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 (7) Community acquired pneumonia: Diagnosed on last admission. Continue levaquin for full 10 day course, especially in light of STEMI. Last day 18. See last d/c instructions for follow up after this. (8) DVT prophylaxis: Lovenox 40mg SQ daily (9) Discharge planning issues: As per and daughter he did not appear to be coping well at home after last discharge. Once cleared by cardiology will repeat PT/OT evaluations. Subjective Patient was discharged by myself on Thursday for community-acquired pneumonia. I reviewed this admission with the patient and he reports no chest pain in hindsight. He was kept on telemetry throughout the whole admission without any issues. He was really kept only for a few days because of his history of left upper lung lobectomy and significant consolidation on CT appearance. He believes he was getting better once he was discharged however his daughter and at bedside disagree with this and feel he was not eating as well. On the day of admission he had sudden onset shortness of breath followed by sudden chest pain. EMS were called and he was brought to the ER. He was taken emergently to the [facility] due to ST elevations noted on EKG. He is known to have coronary artery disease under Dr. Sahu. After cardiac catheterization he reports no further episodes of chest pain. He feels he is generally back to his normal self this morning. Review of Systems Review of Systems: All systems reviewed & are unremarkable except as noted in HPI & below Physical Exam Constitutional: + not well nourished, no acute distress and not ill appearing Eyes: + anicteric sclerae; pupils not irregular ENMT: external ear and nose normal, oropharynx normal Neck: normal visual inspection and trachea midline Respiratory: normal respiratory effort; no respiratory distress, no labored breathing, no retractions, does not use accessory muscles and expiratory phase not prolonged Auscultation: + diminished lung sounds (Left-sided); no crackles, no rales, no rhonchi and no wheezes Cardiovascular: Rate/Rhythm: regular rate and regular rhythm Heart Sounds: normal S1 and normal S2; no murmur Extremities: normal capillary refill; no pedal edema Gastrointestinal (Abdomen): Inspection/Auscultation: normal bowel sounds; abdomen not distended Percussion/Palpation: abdomen soft; abdomen nontender, no guarding and abdomen not rigid Musculoskeletal: no cyanosis or clubbing, extremities motor strength 5/5 Skin: Multiple small blistering rash on lower lip, under the nose, small patch on each cheek. Some crusting of left cheek rash. No surrounding cellulitis Neurologic: moves all extremities and awake; no focal motor deficits and not confused Speech / Cognition: normal speech Motor/Sensory: no tremor and no sensory deficit Psychiatric: A+Ox3, euthymic affect Results & Data Vital Signs (Past 12 Hours) Vital Signs Temp Pulse Resp BP Pulse Ox 09/25/19 15:28 37.1 C 71 18 119/72 95 09/25/19 11:38 36.5 C 79 19 121/68 96 09/25/19 09:38 36.7 C 105 H 20 119/84 97 09/25/19 07:04 36.4 C L 79 24 154/92 H 95 09/25/19 06:04 36.5 C 82 24 154/92 H 94 09/25/19 05:34 83 16 134/72 92 09/25/19 05:04 81 21 142/89 H 92 09/25/19 04:34 79 21 149/88 H 93 09/25/19 04:04 36.5 C 77 23 149/89 H 93 PG Care Time/CCT Total # of Minutes Spent Total Time Spent with Patient: Total time spent is greater than 50% in coordination of care (as documented) at patient's floor/unit and/or counseling patient: (1) Acute ST elevation myocardial infarction (STEMI) Involved coronary artery: unspecified coronary artery Qualified Code(s): I21.3 - ST elevation (STEMI) myocardial infarction of unspecified site (2) 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 (3) Hypertension Hypertension type: essential hypertension Qualified Code(s): I10 - Essential (primary) hypertension (4) Community acquired pneumonia Laterality: left Lung location: unspecified part of lung Qualified Code(s): J18.9 - Pneumonia, unspecified organism
--- NOTE | 2019-09-25 16:23 | Cardiology Progress Note ---
Date of Service September 25, 2019 Subjective The patient is resting comfortably in bed without complaints of chest pain or dyspnea. Physical Exam Physical Exam: In general this is a well-developed well-nourished elderly white male in no acute distress. HEENT exam is negative. Neck is supple with full carotid upstrokes. There are no carotid bruits. Jugular venous pressure is flat at 90. There is no thyromegaly. Cardiovascular exam reveals a regular rhythm with distant heart sounds. No obvious murmurs. Lungs note diffuse rhonchi but no wheezes or rales. Abdomen is soft and nontender without bruits. Extremities reveal intact radial artery pulses bilaterally. There is no peripheral edema. Results & Data Vital Signs (Past 12 Hours) Vital Signs Temp Pulse Resp BP Pulse Ox 09/25/19 15:57 75 09/25/19 15:28 37.1 C 71 18 119/72 95 09/25/19 11:38 36.5 C 79 19 121/68 96 09/25/19 09:38 36.7 C 105 H 20 119/84 97 09/25/19 07:04 36.4 C L 79 24 154/92 H 95 09/25/19 06:04 36.5 C 82 24 154/92 H 94 09/25/19 05:34 83 16 134/72 92 09/25/19 05:04 81 21 142/89 H 92 09/25/19 04:34 79 21 149/88 H 93 Laboratory Results Troponin peaked at 19.4, now down to 12.7. PG Care Time/CCT Total # of Minutes Spent Total Time Spent with Patient: Total time spent is greater than 50% in coordination of care (as documented) at patient's floor/unit and/or counseling patient:
[2019-09-25] MEDS ORDERED: VALACYCLOVIR HCL 500 MG TABLET PO ONE (16:30)
[2019-09-25] MEDS: FLUTICASONE INH SCH (17:37)
[2019-09-25] MEDS: VILANTEROL INH SCH (17:37)
[2019-09-25] MEDS: ENOXAPARIN INJ 40 MG/0.4 ML SYR SQ SCH (20:56)
[2019-09-25] MEDS: METOPROLOL TARTRATE 25 MG TAB PO SCH (21:05)
[2019-09-26 05:59] LABS: Basophils # (auto) 0.02 K/uL (0-0.2); Basophils % (auto) 0.3 %; Eosinophils # (auto) 0.08 K/uL (0-0.5); Eosinophils % (auto) 1.1 %; Hematocrit (blood only) 40.5 % (42-52); Hemoglobin 13.7 g/dL (14.0-18.0); Immature Granulocytes # (auto) 0.11 K/uL (0.00-0.02); Immature Granulocytes % (auto) 1.4 %; Lymphocytes # (auto) 1.21 K/uL (1.2-3.4); Lymphocytes % (auto) 15.9 %; Mean Corpuscular Hemoglobin 30.4 pg (25-34); Mean Corpuscular Hgb Conc 33.8 g/dL (32-36); Mean Platelet Volume 10.2 fL (7.4-10.4); Monocytes # (auto) 0.69 K/uL (0.11-0.59); Monocytes % (auto) 9.1 %; Neutrophils # (auto) 5.49 K/uL (1.4-6.5); Neutrophils % (auto) 72.2 %; Platelet Count 236 K/uL (130-400); RDW Coefficient of Variation 14.2 % (11.5-14.5)
[2019-09-26] MEDS ORDERED: VALACYCLOVIR HCL 500 MG TABLET PO ONE (06:00)
[2019-09-26 06:52] LABS: Estimated Average Glucose 117 mg/dl; Hemoglobin A1C 5.7 % (4.5-5.6)
[2019-09-26 07:03] LABS: BUN Creatinine Ratio 19.9 (10-20); Creatinine Clr Calc Pharmacy 48.3 ml/min; Est GFR (African American) 57.9; Magnesium 2.1 mg/dl (1.8-2.4); Potassium 3.8 mmol/L (3.5-5.1)
[2019-09-26] MEDS ORDERED: FLUTICASONE INH SCH (09:00)
[2019-09-26] MEDS ORDERED: VILANTEROL INH SCH (09:00)
[2019-09-26] MEDS: METOPROLOL TARTRATE 25 MG TAB PO SCH ×2 (09:23→21:20)
[2019-09-26] MEDS: CHOLECALCIFEROL 1,000 UNITS TAB PO SCH ×2 (09:23→21:20)
[2019-09-26] MEDS: CLOPIDOGREL BISULFATE 75 MG TAB PO SCH (09:23)
[2019-09-26] MEDS: VERAPAMIL HCL 120 MG TABCR PO SCH (09:23)
[2019-09-26] MEDS: TOPIRAMATE 25 MG TAB PO SCH (09:23)
[2019-09-26] MEDS: ASPIRIN 81 MG ECTAB PO SCH (09:24)
[2019-09-26] MEDS: levoFLOXacin 750 MG TAB PO SCH (11:13)
[2019-09-26 12:13] LABS: Appearance Urine Clear (Clear); Bilirubin Urine Negative (Negative); Blood Urine Negative (Negative); Color Urine Yellow; Glucose Urine UA Negative (Negative); Ketones Urine Negative (Negative); Leukocyte Esterase Urine Negative (Negative); Nitrite Urine Negative (Negative); Protein Urine Negative (Negative); Specific Gravity Urine 1.006 (1.000-1.030); Urobilinogen Urine Negative (Negative); pH Urine 5.5 (4.5-7.5)
[2019-09-26] MEDS: FLUTICASONE INH SCH (15:40)
[2019-09-26] MEDS: VILANTEROL INH SCH (15:40)
--- NOTE | 2019-09-26 17:47 | Hospitalist Progress Note ---
Date of Service September 26, 2019 Assessment & Plan (1) Acute ST elevation myocardial infarction (STEMI): S/P successful PCI with stent to D1 Continues to be chest pain free following PCI -continue ASA -plan to change Plavix to Brilinta tomorrow--> loading dose of 180mg in the AM and then 90mg po bid after that Not on statin due to prior severe muscle aches on > 3 statins (atorvastatin, fluvastatin, rosuvastatin, and pravastatin). LDL 94. Will consult [facility] nurse navigator to determine eligibility/cost of PCSK 9 inhibitor. He was changed to metoprolol from Coreg as discussed with Dr Miranda to allow uptitration as blood pressure and heart rate allows given multifocal atrial tachycardia , however Dr. 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 Current rash on lower lip, nose and b/l cheeks consistent with this without secondary bacterial infection at present. Suspect currently immunosuppressed given current pneumonia and STEMI. Rx Valtrex 2g BID for 1 day -already improving as per pt (5) COPD (chronic obstructive pulmonary disease): No exacerbation Continue Breo Ellipta prn Albuterol nebs. 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 (7) Community acquired pneumonia: Diagnosed on last admission. Continue levaquin for full 10 day course, especially in light of STEMI. Last day 18. See last d/c instructions for follow up after this. -not hypoxic, doing well -will need f/u chest imaging in 3-4 weeks to ensure resolution (8) Pancreatic cyst: large cystic mass seen on Abd US last admission -needs abdomen MRI as outpt and close follow up (9) DVT prophylaxis: Lovenox 40mg SQ daily (10) Discharge planning issues: Plan for dc to home tomorrow Ambulating and doing well independently here Subjective Pt feeling very well. No chest pain or SOB. He has ambulated the halls four times today and no CP. Has occasional productive cough. No nausea or vomiting, no abd pain, no diarrhea. He has had some occasional sharp jabs of pain in the lower back today that he thinks are muscle spasms. Urinalysis was normal. Tele with NSR, rates 70-80s Discussed his case with Dr. Sahu of Cardiology Review of Systems Review of Systems: All systems reviewed & are unremarkable except as noted in HPI & below Feels the cold sores on his lips ar eimproving Physical Exam Constitutional: WD/WN, vitals as above Eyes: + anicteric sclerae ENMT: Mouth: + lip abnormality (several small crusted over lesions onlips and bilat cheeks) Neck: trachea midline, no thyromegaly Respiratory: normal respiratory effort; no labored breathing Auscultation: + diminished lung sounds (left lower lung field) Cardiovascular: RRR, no murmur, no edema Chest (Breasts): Chest: normal inspection of chest Gastrointestinal (Abdomen): normal bowel sounds, soft, nontender, no hepatosplenomegaly Musculoskeletal: Extremities: extremities normal to inspection; no cyanosis and no clubbing Skin: no rashes, warm and dry Neurologic: moves all extremities and awake; no focal motor deficits Psychiatric: A+Ox3, euthymic affect Lymphatic: no lymphedema Results & Data Vital Signs (Past 12 Hours) Vital Signs Temp Pulse Pulse Resp BP BP Pulse Ox 09/26/19 16:01 36.7 C 82 18 129/68 96 09/26/19 15:00 70 09/26/19 12:06 37.1 C 77 19 133/80 96 09/26/19 07:06 36.5 C 80 18 161/82 H 96 09/26/19 07:00 77 Laboratory Results 09/26/19 09/26/19 09/26/19 Range/Units 11:55 05:37 05:37 WBC 7.60 (4.8-10.8) K/uL RBC 4.50 L (4.7-6.1) M/uL Hgb 13.7 L (14.0-18.0) g/dL Hct 40.5 L (42-52) % MCV 90.0 (80-100) fL MCH 30.4 (25-34) pg MCHC 33.8 (32-36) g/dL RDW Std Deviation 47.0 H (36.4-46.3) fL RDW Coeff of Falguni 14.2 (11.5-14.5) % Plt Count 236 (130-400) K/uL MPV 10.2 (7.4-10.4) fL Immature Gran % (Auto) 1.4 % Neut % (Auto) 72.2 % Lymph % (Auto) 15.9 % Alfalfa % (Auto) 9.1 % Eos % (Auto) 1.1 % Baso % (Auto) 0.3 % Immature Gran # (Auto) 0.11 H (0.00-0.02) K/uL Neut # (Auto) 5.49 (1.4-6.5) K/uL Lymph # (Auto) 1.21 (1.2-3.4) K/uL Alfalfa # (Auto) 0.69 H (0.11-0.59) K/uL Eos # (Auto) 0.08 (0-0.5) K/uL Baso # (Auto) 0.02 (0-0.2) K/uL Sodium 142 (136-145) mmol/L Potassium 3.8 D (3.5-5.1) mmol/L Chloride 109 H (98-107) mmol/L Carbon Dioxide 27 (21-32) mmol/L Anion Gap 6.0 (3-11) BUN 26 H (7-18) mg/dl Creatinine 1.31 (0.6-1.4) mg/dl Est Cr Clr Drug Dosing 48.3 ml/min Est GFR ( Amer) 57.9 Est GFR (Non-Af Amer) 50.0 BUN/Creatinine Ratio 19.9 (10-20) Glucose 83 (70-99) mg/dl Estimat Average Glucose mg/dl Hemoglobin A1c (4.5-5.6) % Calcium 9.0 (8.5-10.1) mg/dl Magnesium 2.1 (1.8-2.4) mg/dl Urine Color Yellow Urine Appearance Clear (Clear) Urine pH 5.5 (4.5-7.5) Ur Specific Roby 1.006 (1.000-1.030) Urine Protein Negative (Negative) Urine Glucose (UA) Negative (Negative) Urine Ketones Negative (Negative) Urine Blood Negative (Negative) Urine Nitrite Negative (Negative) Urine Bilirubin Negative (Negative) Urine Urobilinogen Negative (Negative) Ur Leukocyte Esterase Negative (Negative) 09/25/19 Range/Units 04:22 WBC (4.8-10.8) K/uL RBC (4.7-6.1) M/uL Hgb (14.0-18.0) g/dL Hct (42-52) % MCV (80-100) fL MCH (25-34) pg MCHC (32-36) g/dL RDW Std Deviation (36.4-46.3) fL RDW Coeff of Falguni (11.5-14.5) % Plt Count (130-400) K/uL MPV (7.4-10.4) fL Immature Gran % (Auto) % Neut % (Auto) % Lymph % (Auto) % Alfalfa % (Auto) % Eos % (Auto) % Baso % (Auto) % Immature Gran # (Auto) (0.00-0.02) K/uL Neut # (Auto) (1.4-6.5) K/uL Lymph # (Auto) (1.2-3.4) K/uL Alfalfa # (Auto) (0.11-0.59) K/uL Eos # (Auto) (0-0.5) K/uL Baso # (Auto) (0-0.2) K/uL Sodium (136-145) mmol/L Potassium (3.5-5.1) mmol/L Chloride (98-107) mmol/L Carbon Dioxide (21-32) mmol/L Anion Gap (3-11) BUN (7-18) mg/dl Creatinine (0.6-1.4) mg/dl Est Cr Clr Drug Dosing ml/min Est GFR ( Amer) Est GFR (Non-Af Amer) BUN/Creatinine Ratio (10-20) Glucose (70-99) mg/dl Estimat Average Glucose 117 mg/dl Hemoglobin A1c 5.7 H (4.5-5.6) % Calcium (8.5-10.1) mg/dl Magnesium (1.8-2.4) mg/dl Urine Color Urine Appearance (Clear) Urine pH (4.5-7.5) Ur Specific Roby (1.000-1.030) Urine Protein (Negative) Urine Glucose (UA) (Negative) Urine Ketones (Negative) Urine Blood (Negative) Urine Nitrite (Negative) Urine Bilirubin (Negative) Urine Urobilinogen (Negative) Ur Leukocyte Esterase (Negative) PG Care Time/CCT Total # of Minutes Spent Total Time Spent with Patient: Total time spent is greater than 50% in coordination of care (as documented) at patient's floor/unit and/or counseling patient: (1) Acute ST elevation myocardial infarction (STEMI) Involved coronary artery: unspecified coronary artery Qualified Code(s): I21.3 - ST elevation (STEMI) myocardial infarction of unspecified site (2) Hypertension Hypertension type: essential hypertension Qualified Code(s): I10 - Essential (primary) hypertension (3) 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
[2019-09-26] MEDS: ENOXAPARIN INJ 40 MG/0.4 ML SYR SQ SCH (21:20)
--- NOTE | 2019-09-26 22:27 | Cardiology Progress Note ---
Date of Service September 26, 2019 Assessment & Plan (1) Acute ST elevation myocardial infarction (STEMI): 2. Ischemic cardiomyopathy 3. Atrial tachycardia 4. Hypertension 5. Dyslipidemia 6. Statin intolerance 7. Recent pneumonia 8. Migraine headaches No recurrent angina. Troponin peaked with modest elevation. Moderate LV dysfunction with anterior wall motion abnormality Well perfused on exam without congestion. Electrically stable overnight. -- With prior repeated LAD/diagonal interventions and now recurrent LAD event recommend transition from clopidogrel to ticagrelor --> start 180mg tomorrow AM, then 90mg BID -- Continue ASA 81mg -- On metoprolol, back to carvedilol on discharge -- Start low dose SUZY if BP allows -- previously unable to tolerate multiple statins - had symptoms with Repatha although may have been 2/2 unrelated viral illness at same time -- will try to r estart as an outpatient. -- From a cardiac standpoint OK with discharge tomorrow. Follow-up with me in 2 weeks. Cardiac rehab. Subjective No recurrent chest pain or shortness of breath. Brief flank pain this AM. Up walking to bathroom without urinary symptoms. Tele reviewed -- no events. Review of Systems Review of Systems: All systems reviewed & are unremarkable except as noted in HPI & below Physical Exam Physical Exam: General: Comfortable, no acute distress Eyes: Sclerae anicteric, extraocular movements intact HENT: Oropharynx clear mucous membranes moist Neck: Normal carotid upstrokes, no bruits. No JVD. Lungs: Clear with few scattered wheezes Cardiac: Regular rate and rhythm, no murmurs, rubs or gallops. Abdomen: Soft, nontender, nondistended, positive bowel sounds. Neuro: Nonfocal Psych: Alert orient x3, normal affect and mood Extremities/Vascular: -- 2+ radial bilaterally -- No edema Results & Data Vital Signs (Past 12 Hours) Vital Signs Temp Pulse Pulse Resp BP BP Pulse Ox 09/26/19 21:02 97.7 F 76 18 150/79 H 94 09/26/19 16:01 98.1 F 82 18 129/68 96 09/26/19 15:00 70 09/26/19 12:06 98.8 F 77 19 133/80 96 PG Care Time/CCT Total # of Minutes Spent Total Time Spent with Patient: Total time spent is greater than 50% in coordination of care (as documented) at patient's floor/unit and/or counseling p atient: (1) Acute ST elevation myocardial infarction (STEMI) Involved coronary artery: unspecified coronary artery Qualified Code(s): I21.3 - ST elevation (STEMI) myocardial infarction of unspecified site
[2019-09-27] MEDS ORDERED: TICAGRELOR 90 MG TAB PO ONE (08:00)
[2019-09-27 08:31] LABS: BUN Creatinine Ratio 16.5 (10-20); Calcium 9.3 mg/dl (8.5-10.1); Creatinine Clr Calc Pharmacy 41.9 ml/min; Est GFR (African American) 48.8; Est GFR (Non-African American) 42.1
[2019-09-27] MEDS: METOPROLOL TARTRATE 25 MG TAB PO SCH (08:44)
[2019-09-27] MEDS: CHOLECALCIFEROL 1,000 UNITS TAB PO SCH (08:44)
[2019-09-27] MEDS: TOPIRAMATE 25 MG TAB PO SCH (08:45)
[2019-09-27] MEDS: ASPIRIN 81 MG ECTAB PO SCH (08:45)
[2019-09-27] MEDS: VERAPAMIL HCL 120 MG TABCR PO SCH (08:45)
[2019-09-27] MEDS ORDERED: TICAGRELOR 90 MG TAB PO SCH ×2 (09:00→21:00)
--- NOTE | 2019-09-27 09:33 | Cardiology Progress Note ---
Date of Service September 27, 2019 Assessment & Plan (1) Acute ST elevation myocardial infarction (STEMI): 2. Ischemic cardiomyopathy 3. Atrial tachycardia 4. Hypertension 5. Dyslipidemia 6. Statin intolerance 7. Recent pneumonia 8. Migraine headaches 9. Mild HECTOR Patient has remained chest pain-free, electrically and hemodynamically stable. On exam appears well-perfused without significant congestion Mild HECTOR today after negative a liter yesterday Transition to Brilinta today, home on 90 mg twice daily Continue aspirin 81 Restart carvedilol 3.125 twice daily as an outpatient Will hold off on starting ARB in the setting of mild HECTOR. Plan to retry losartan as an outpatient Continue verapamil for patient's prior complicated migraines We will revisit Repatha as an outpatient. From a cardiac standpoint okay with discharge today. Follow-up with me in 2 weeks. Cardiac rehab. Subjective No recurrent chest pain or shortness of breath. Feeling well this morning. Tele reviewed -- no events. Review of Systems Review of Systems: All systems reviewed & are unremarkable except as noted in HPI & below Physical Exam Physical Exam: General: Comfortable, no acute distress HEENT: Sclerae anicteric, mucous membranes moist Lungs: Clear to auscultation, minimal wheezes Cardiac: Regular rate and rhythm, no murmurs. No JVD. Abdomen: Soft, nontender, nondistended, positive bowel sounds. Extremities: Warm, well perfused, no edema. Right radial artery access site with no ecchymosis, hematoma. Distal pulse and sensation intact. Skin: No rashes or lesions. Neuro: Nonfocal Psych: Alert orient x3, normal affect and mood Results & Data Vital Signs (Past 12 Hours) Vital Signs Temp Pulse Pulse Resp BP Pulse Ox 09/27/19 08:04 97.5 F L 90 18 121/72 94 09/27/19 02:56 97.9 F 77 17 121/73 96 09/27/19 00:28 97.5 F L 79 18 146/83 H 95 09/27/19 00:23 77 PG Care Time/CCT Total # of Minutes Spent Total Time Spent with Patient: Total time spent is greater than 50% in coordination of care (as documented) at patient's floor/unit and/or counseling patient: (1) Acute ST elevation myocardial infarction (STEMI) Involved coronary artery: unspecified coronary artery Qualified Code(s): I21.3 - ST elevation (STEMI) myocardial infarction of unspecified site
[2019-09-27] MEDS: levoFLOXacin 750 MG TAB PO SCH (10:40)
--- NOTE | 2019-09-27 15:38 | Discharge Summary ---
Date of Service September 27, 2019 Admission HPI Per Admitting Provider 88 yo presenting with ant STEMI. 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 Prior stenting of D1. Acute chest pain at 9am. Found to have ant STEMI Principal Diagnosis STEMI Discharge Exam Constitutional WD/WN, vitals as above Eyes + anicteric sclerae ENMT Mouth: + lip abnormality (several small crusted over lesions onlips and bilat cheeks) Neck trachea midline, no thyromegaly Respiratory normal respiratory effort; no labored breathing Auscultation: + diminished lung sounds (left lower lung field) Cardiovascular RRR, no murmur, no edema Chest (Breasts) Chest: normal inspection of chest Gastrointestinal (Abdomen) normal bowel sounds, soft, nontender, no hepatosplenomegaly Musculoskeletal Extremities: extremities normal to inspection; no cyanosis and no clubbing Skin no rashes, warm and dry Neurologic moves all extremities and awake; no focal motor deficits Psychiatric A+Ox3, euthymic affect Lymphatic no lymphedema Discharge Data Allergies Allergy/AdvReac Type Severity Reaction Status Date / Time Cephalosporins Allergy Intermediate Rash Verified 09/25/19 16:21 fluticasone Allergy Intermediate Rash Verified 09/25/19 16:21 Iodinated Contrast Media Allergy Intermediate Hives Verified 09/25/19 16:21 oxycodone Allergy Intermediate HIVES Verified 09/25/19 16:21 Penicillins Allergy Intermediate Rash Verified 09/25/19 16:21 salmeterol Allergy Mild Rash Verified 09/19/19 12:35 cephalexin [From Keflex] Allergy Unknown Unknown Verified 09/25/19 16:21 pravastatin Allergy Unknown Unknown Verified 09/25/19 16:21 prednisone Allergy Unknown Unknown Verified 09/25/19 16:21 atorvastatin AdvReac Mild MUSCLE Verified 09/25/19 16:21 ACHES fluvastatin AdvReac Mild MUSCLE Verified 09/25/19 16:21 ACHES lisinopril AdvReac Mild Cough Verified 09/25/19 16:21 rosuvastatin AdvReac Mild MUSCLE Verified 09/25/19 16:21 ACHES Consultations 09/24/19 12:50 Consult Internal Medicine Routine 09/24/19 12:56 Consult Boat Cleaner Routine 09/26/19 00:55 Consult THUANG dental laboratory supervisor Routine Procedures Performed Operation Date: 09/24/19 11:25 Actual Procedures s Cineradiography w/Routine Exam - Sera Myers s Cath, Left with Cors and Vent - Sera Myers p Aspiration/PCI w/BMS for Stemi - Sera Myers s POBA each ADDTL Vessel - Sera Myers Ordered Studies 09/24/19 11:29 CL Cath Imgs for PACS use only Stat ECHO Hospital Course (1) Acute ST elevation myocardial infarction (STEMI): S/P successful PCI with stent to D1 Continues to be chest pain free following PCI -continue ASA and Brilinta 90mg po bid Not on statin due to prior severe muscle aches on > 3 statins (atorvastatin, fluvastatin, rosuvastatin, and pravastatin). LDL 94. 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 Current rash on lower lip, nose and b/l cheeks consistent with this without secondary bacterial infection at present. Suspect currently immunosuppressed given current pneumonia and STEMI. Rx Valtrex 2g BID for 1 day -already improving as per pt (5) COPD (chronic obstructive pulmonary disease): No exacerbation Continue Breo Ellipta prn Albuterol nebs. 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 (7) Community acquired pneumonia: Diagnosed on last admission. Continue levaquin for full 10 day course, especially in light of STEMI. Last day 18th. See last d/c instructions for follow up after this. -not hypoxic, doing well -will need f/u chest imaging in 3-4 weeks to ensure resolution (8) Pancreatic cyst: large cystic mass seen on Abd US last admission -needs abdomen MRI as outpt and close follow up (9) Acute renal insufficiency: dishroom attendant slightly increased on day of discharge to 1.5 from 1.3. Did have cath and received IVFs afterwards -not on SUZY or ARB, no other nephrotoxins -advised BMP in 3 days as outpt with PCP follow up (10) Acute systolic CHF (congestive heart failure): LVEF reduced 35-40% on ECHO here Is euvolemic currently -advised low sodium diet, daily weights, fluid restriction 1800mL/day -on Coreg -consider adding losartan as outpt once renal function improved (11) DVT prophylaxis: Lovenox 40mg SQ daily (12) Discharge planning issues: Plan for dc to home today Ambulating and doing well independently here Total Time Total Time Spent Total Time Spent (In Minutes): 35 min Total Time Includes: Examination of the Patient, Discharge Planning and Medication Reconciliation Discharge Plan Discharge Items Patient Disposition: Home - Self-Care Reason For Visit: HEART ALERT STEMI Discharge Diagnosis: STEMI Condition on Discharge: Good Activity: As commented below Non-emergency contact: Primary Care Provider and Dry Cure Worker Call non-emergency contact if: you have any medication questions, your symptoms worsen, your pain is not controlled, your pain is worsening, your pain is unusual for you, your pain is concerning for you, your temperature is above 101, your wound has increased redness, your wound has increased drainage and your wound pain has increased Follow-up/Referrals: Loan Zafar PA-C [Primary Care Provider] - 09/30/19 11:00 am (Please, follow up with Loan Zafar PA-C on September 30 at 11:00 am. *If you need to change this appointment, call the office at [phone].) Froilan Sahu MD [Physician] - 10/10/19 2:00 pm (Please, follow up at [facility] Office with Dr. Sahu' dietary assistant, Sarah Giles Pa-C, on ThursdayOctober 10 at 2:00 pm. *If you need to change this appointment, call their office at [phone].) Diet: Heart Healthy and Low Sodium (2gm) Fluids: 1800ml (7 cups) Ambulatory Orders: Basic Metabolic Panel (Routine) Timeframe: 3 Days Location: Determined by Patient Ordered By: Yeimi Mckeon Attending Provider Instructions: It is very important to take the Aspirin and Brilinta as prescribed. Please follow up with Dr. Mcintyre as scheduled for you. You should have blood work done prior to your visit with Loan to ensure your kidney function has returned to normal. Call your Primary Care doctor if any of the following symptoms or problems start or get worse: * Shortness of breath or difficulty breathing * Wake up at night short of breath * Chest pain * Cough * Swelling of your hands, feet, or legs * More fatigued or tired with your normal activity * Palpitations - sudden fast heart beats WEIGHT * Weigh yourself every morning after using the bathroom. * Use the same scale. * Wear the same amount of clothing. * Write your weight down on a chart. * Call your Primary Care doctor if you gain more than 2-3 pounds in 1-2 days. MEDICATIONS * Use this discharge instruction sheet for medication instructions. * Take your medications at the time your doctor ordered. * Do not skip a dose of your medicines. * If you miss a dose of medicine, take it as soon as possible, but DO NOT DOUBLE A DOSE. * Read your medicine information when you get home. * Know all of the side effects of your medicine. If in doubt, ask your pharmacist * Call your Primary Care doctor's office if you have any side effects. * Be sure all of your doctors know what medicine and herbs you take (including cold, flu, and herbal medicine). Take the following with you to your follow-up doctor appointments: * Weight Chart * Medication List * List of questions Do not drink excessive alcohol, beer or wine. Home Care: * Take your medications exactly as directed. Don't skip doses. * Remember that recovery after a heart attack takes time. Plan to rest for at lease 4-8 weeks while you recover. Then return to normal activity when your doctor says it's okay. * Ask your doctor about joining a heart rehabilitation program. * Tell your doctor if you are feeling depressed. Feelings of sadness are common after a heart attack, but it is important that you speak to someone if you are feeling overwhelmed by these feelings. * If you are having chest pain, call 911 for an ambulance. Do NOT drive yourself to the hospital. * Ask your family members to learn CPR. * Learn to take your own blood pressure and pulse. Keep a record of your results. Ask your doctor when you should seek emergency medical attention. He or she will tell you which blood pressure reading is dangerous. Lifestyle Changes: * Maintain a healthy weight. Get help to lose any extra pounds. * Cut back on salt. * Limit canned, dried, packaged, and fast foods. * Don't add salt to your food. * Season foods with herbs instead of salt when you cook. * Break the smoking habit. Enroll in a stop-smoking program to improve your chances of success. * Limit fatty foods. * Ask your doctor about having your lipid levels checked regularly. * Build up your activity according to your doctor's recommendation. * Ask your doctor when it's okay to resume sexual activity. * Tell your doctor about any erectile dysfunction (ED) medication you are taking. Some ED medications are not safe if you take certain heart medications. * Try to manage stress. Follow Up: It is important for you to keep your follow up appointments with your medical provider. ACTIVITY RECOMMENDATIONS: Excess manipulation of the wrist should be avoided for the next 24-48 hours. * No lifting over 2 pounds (approximately a 1/2 gallon of milk) with the utilized arm for 24 hours. * No strenuous activity such as bowling or tennis for 3 days. * Keep the site of the procedure covered with a bandage for 24 hours. *You may shower the day after the procedure. Do not take a tub bath or submerge the puncture site in water for the next 3 days. *Do not operate any motorized equipment for 3 days. SPECIAL CARE INSTRUCTIONS: The site may be slightly bruised and sore following your procedure. Should any of the following occur, contact the Dr. who performed your procedure. 1. Redness/inflammation, swelling, chills, or fever, or colored drainage at procedure site within 3-7 days after your procedure. 2. Coldness, discoloration, ongoing numbness, severe pain, or swelling. Expect mild tingling of hand and tenderness at the puncture site for up to three days. If this persists beyond three days, or other symptoms develop, notify the Dr. who performed your procedure. BLEEDING: If the procedure site on your wrist begins to bleed, do not panic 1. Place 1 or 2 fingers firmly just slightly above the insertion site to stop the bleeding. You may be able to feel your pulse as you hold pressure. 2. Lift your finger after 5 minutes to see if the bleeding has stopped. 3. Once the bleeding has stopped, gently wipe the wrist area clean with a bandage. * If the bleeding from your wrist does not stop after 10 minutes, or if there is a large amount of bleeding or spurting, call 911 (do not drive yourself to the [facility]). SKIN IRRITATION: * You may experience some redness and/or swelling in the area where radiation was administered. If any skin irritation occurs, please contact your family physician. FOLLOW UP VISIT: Keep any scheduled doctor appointments. Pending Studies at Discharge: No Stand-Alone Forms: My [facility] Medications and DC Order Prescriptions: New Brilinta 90 mg Tablet 90 mg PO BID Qty: 60 RF: 0 aspirin [Ecotrin Low Strength] 81 mg Tablet,Delayed Release (Dr/Ec) 81 mg PO QAM Qty: 30 RF: 0 Continued carvedilol 3.125 mg tablet 3.125 mg PO BID Qty: 180 RF: 1 Breo Ellipta 100-25 mcg/dose blister with device 1 inh INHALATION DAILY Qty: 60 RF: 2 topiramate 25 mg tablet 25 mg PO QAM RF: 0 verapamil 120 mg capsule,ext rel. pellets 24 hr 120 mg PO QAM RF: 0 aspirin 81 mg Tablet,Delayed Release (Dr/Ec) 81 mg PO QAM RF: 0 nitroglycerin [Nitrostat] 0.4 mg Tablet, Sublingual 1 tab Sublingual UD PRN (Reason: Chest Pain) RF: 0 albuterol sulfate [Ventolin HFA] 90 mcg/actuation Hfa Aerosol Inhaler 2 puff Inhalation QID PRN (Reason: SOB) RF: 0 cholecalciferol (vitamin D3) [Vitamin D3] 1,000 unit Capsule 1,000 unit PO BID RF: 0 Discontinued clopidogrel [Plavix] 75 mg tablet 75 mg PO HS RF: 0 levofloxacin [Levaquin] 750 mg tablet 750 mg PO DAILY 7 Days Qty: 7 RF: 0 Discharge Orders: Discharge Order (Routine); Ordered 09/27/19 Ordered By: Yeimi Sapp Admission Data Admit Date/Time: 09/24/19 12:56 Attending Provider: Sera Myers Admit Provider: Sera Myers Primary Care Provider: Loan Zafar Other Providers: Vinnie Campoverde ; Charanjit Santiago ; Yeimi Sapp
[2019-09-29] MEDS ORDERED: levoFLOXacin 750 MG TAB PO SCH (11:00)
== END 2019-09-27 16:58 | disposition home or self-care (01) | DRG 246 ==
LOC: ED 11:06 → 1E 11:40 → CC 11:40 → 1E 12:56 → 2S 09-25 09:12

== ENCOUNTER 2019-10-27 15:08 | Observation (INO) ==
[2019-10-27 15:31] LABS: Basophils # (auto) 0.05 K/uL (0-0.2); Basophils % (auto) 0.8 %; Eosinophils # (auto) 0.16 K/uL (0-0.5); Eosinophils % (auto) 2.5 %; Hemoglobin 13.9 g/dL (14.0-18.0); Immature Granulocytes # (auto) 0.05 K/uL (0.00-0.02); Immature Granulocytes % (auto) 0.8 %; Lymphocytes # (auto) 1.02 K/uL (1.2-3.4); Lymphocytes % (auto) 15.8 %; Mean Corpuscular Hgb Conc 33.9 g/dL (32-36); Mean Corpuscular Volume 88.6 fL (80-100); Mean Platelet Volume 11.5 fL (7.4-10.4); Monocytes % (auto) 10.9 %; Neutrophils # (auto) 4.46 K/uL (1.4-6.5); Neutrophils % (auto) 69.2 %; Platelet Count 169 K/uL (130-400); RDW Coefficient of Variation 14.5 % (11.5-14.5); RDW Standard Deviation 46.6 fL (36.4-46.3); Red Blood Count 4.63 M/uL (4.7-6.1); White Blood Count 6.44 K/uL (4.8-10.8)
[2019-10-27 15:43] LABS: Partial Thromboplastin Time 26.3 Seconds (21.0-31.0); Prothrombin Time 10.5 Seconds (9.0-12.0)
--- NOTE | 2019-10-27 15:44 | XRay Report ---
XR chest 1V portable CLINICAL HISTORY: Chest Pain pain COMPARISON STUDY: 09/19/2019 FINDINGS: The patient is slightly rotated to the left. This accentuates the left paratracheal soft ti ssues as well as left hilar shadows. Pre-existing fibrotic changes left mid lung as well as pleural reactive change left lateral hemithora x. Chronic elevation left hemidiaphragm. Right lung is clear. Infiltrative process of the left lung is i mproved. IMPRESSION: Improved exam with improved infiltrative process involving the left lung. Pre-existing p ostoperative changes are stable. ACT 112: Negative or not required by law. The above report was generated using voice recognition software. It may contain grammatical, syntax or spelling errors. Electronically signed by: Austin Mayberry M.D. 10/27/2019 3:43 PM
[2019-10-27 15:50] LABS: Alanine Aminotransferase 17 U/L (12-78); Albumin Level 3.2 gm/dl (3.4-5.0); Aspartate Aminotransferase 11 U/L (15-37); BUN Creatinine Ratio 12.6 (10-20); Blood Urea Nitrogen 18 mg/dl (7-18); Calcium 8.7 mg/dl (8.5-10.1); Carbon Dioxide 27 mmol/L (21-32); Chloride 111 mmol/L (98-107); Creatinine Clr Calc Pharmacy 43.9 ml/min; Est GFR (African American) 53.5; Est GFR (Non-African American) 46.1; Glucose 79 mg/dl (70-99); Lipase 161 U/L (73-393); Potassium 3.9 mmol/L (3.5-5.1); Sodium 141 mmol/L (136-145)
[2019-10-27 15:55] LABS: Albumin Globulin Ratio 0.8 (0.9-2); Alkaline Phosphatase 63 U/L (45-117); Bilirubin,Total 1.1 mg/dl (0.2-1); Creatine Kinase 42 U/L (39-308); Creatine Kinase MB 1.5 ng/ml (0.5-3.6); Globulin 3.8 gm/dl (2.5-4.0); Troponin I < 0.015 ng/ml (0-0.045)
--- NOTE | 2019-10-27 16:57 | History & Physical Report ---
Date of Service October 27, 2019 Assessment & Plan (1) Chest pain: Uncertain etiology, concerning given recent STEMI 09/[address] Sabillon, no stents placed at that time per family (cannot open report) Trop neg x1, serials pending CXR: noted for improving PNA Other possibilities include new irritation from known nodule, scar tissue s/p lobectomy, or pleural thickening PE less likely given VSS, O2 sats WNL, and SOB was due to intense pain (not separate from chest pain) (2) H/O: lung cancer: s/p lobectomy in 1998 Follows with [facility] Appt this week was w/o new concerns (3) Solitary pulmonary nodule: Possibly causing pleuritic pain t/c CT chest if ongoing and neg cardiac w/u Recent CT chest 09/2019 (4) Dyslipidemia: continue home meds (5) Complicated migraine: topamax, verapamil--continue (6) COPD (chronic obstructive pulmonary disease): continue home meds Nebs x1 for wheeze Monitor with PRN (7) History of cardiac catheterization: STEMI 09/2019, no stents placed Prior cath in 2016 with stents placed (8) HTN (hypertension): continue home meds (9) DVT prophylaxis: SCDs, ambulation History of Present Illness Primary Care Provider: Loan Zafar PA-C 84 y/o M c/o chest pain. Pt states he was sitting watching television today when he had sudden onset of L sided chest pain. This was around 1:30. The pain was L lateral chest and did not radiate. It was so intense that it took his breath away. He could lessen it with sitting forward. Pt had a STEMI in September. At that time, his pain was substernal, but pt states that the intensity was similar to the pain he had today but just in a different location. Pt has felt fine otherwise. He states that yesterday they went shopping and did a lot of walking, which he had no trouble with. He has not had chest pain since his cath in September, nor SOB. Pt follows with [facility] for hx of lung cancer, s/p LLL lobectomy in 1998. He has known nodules but they have been stable for quite some time and are being monitored periodically. He saw [facility] pul this week and was told he was doing well. Pt usually takes Breo in the afternoon, but missed today's dosing due to being in the ED. He does get some wheezing if he does not take this dose. Cath in September with Dr. Sabillon was noted for LAD disease. Report does not open on system, but family states ballooning was done, but no stents were placed. Pt has been c/w aspirin 81mg and brillinta since d/c. Allergies Allergy/AdvReac Type Severity Reaction Status Date / Time Cephalosporins Allergy Intermediate Rash Verified 10/27/19 15:23 fluticasone Allergy Intermediate Rash Verified 10/27/19 15:23 Iodinated Contrast Media Allergy Intermediate Hives Verified 10/27/19 15:23 oxycodone Allergy Intermediate HIVES Verified 10/27/19 15:23 Penicillins Allergy Intermediate Rash Verified 10/27/19 15:23 salmeterol Allergy Mild Rash Verified 10/27/19 15:23 cephalexin [From Keflex] Allergy Unknown Unknown Verified 10/27/19 15:23 pravastatin Allergy Unknown Unknown Verified 10/27/19 15:23 prednisone Allergy Unknown Unknown Verified 10/27/19 15:23 atorvastatin AdvReac Mild MUSCLE Verified 10/27/19 15:23 ACHES fluvastatin AdvReac Mild MUSCLE Verified 10/27/19 15:23 ACHES lisinopril AdvReac Mild Cough Verified 10/27/19 15:23 rosuvastatin AdvReac Mild MUSCLE Verified 10/27/19 15:23 ACHES Home Medications Home Medications Medication Instructions Recorded Confirmed Type albuterol sulfate [Ventolin HFA] 2 puff INHALATION QID PRN 06/25/18 10/27/19 History cholecalciferol (vitamin D3) 1,000 unit PO BID 06/25/18 10/27/19 History [Vitamin D3] nitroglycerin [Nitrostat] 1 tab SUBLINGUAL UD PRN 06/25/18 10/27/19 History topiramate [Topamax] 25 mg PO QAM 09/19/19 10/27/19 History verapamil 120 mg PO QAM 09/19/19 10/27/19 History aspirin [Ecotrin Low Strength] 81 mg PO QAM #30 tab 09/27/19 10/27/19 Rx Breo Ellipta 1 inh INHALATION QPM 10/27/19 10/27/19 History carvedilol [Coreg] 3.125 mg PO BID 10/27/19 10/27/19 History ticagrelor [Brilinta] 90 mg PO BID 10/27/19 10/27/19 History Past Med/Surg History Medical History Abnormal EKG (Deleted) Acute systolic CHF (congestive heart failure) CAD (coronary artery disease) (Chronic) Cancer of lung (Resolved) 1998 LOBECTOMY. 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 HEMIPLEGIC MIGRAINE AND NO PROBLEMS SINCE Hypertension (Chronic) Pancreatic cyst (Chronic) Pulmonary emphysema (Acute) Seroma after procedure Solitary pulmonary nodule (Acute) STEMI (ST elevation myocardial infarction) 4 STENT 2016 Unstable angina (Deleted) Vitamin D deficiency (Chronic) Surgical History History of cardiac catheterization (Chronic ~2016) 2016 [facility] WITH [address] SBAILLON LAST SEEN 06/23/18 Hx of cataract surgery S/P appendectomy S/P excision of lipoma (Resolved) S/P lobectomy of lung LEFT S/P total knee arthroplasty LEFT Stented coronary artery (Deleted) Family History Brother Cancer Hypertension Sister Cancer Hypertension Diabetes Mother Hypertension Diabetes Unknown Coronary heart disease Father Coronary heart disease Daughter Breast cancer Social History Preferred Language: Qatari Communication Ability: Effective Busperson Required: No Beliefs That Will Affect Care: None Current Living Situation: Spouse Feels Safe at Home: Yes Smoking Status: Former smoker Second Hand Exposure: No ; Hx Alcohol Use: No Hx Substance Use: No Review of Systems Review of Systems: Pertinent positives and negatives reviewed in HPI--all others negative Physical Exam Constitutional: WD/WN, vitals as above Eyes: normal visual chang by confrontation and + anicteric sclerae Neck: normal visual inspection and trachea midline Respiratory: normal respiratory effort; no respiratory distress Auscultation: + wheezes (diffuse, mild); no crackles Cardiovascular: Rate/Rhythm: regular rate and regular rhythm Gastrointestinal (Abdomen): Inspection/Auscultation: abdomen not distended Percussion/Palpation: abdomen soft; abdomen nontender Musculoskeletal: Head/Neck/Chest: normocephalic and head atraumatic negative for edema, peripheral pulses intact Skin: no rashes, warm and dry Neurologic: awake; not confused Speech / Cognition: normal speech Psychiatric: A+Ox3, euthymic affect Results & Data Vital Signs (Past 12 Hours) Vital Signs Temp Pulse Resp BP Pulse Ox 10/27/19 16:00 70 20 96 10/27/19 15:30 75 19 98 10/27/19 15:28 94 10/27/19 15:24 96 10/27/19 15:20 79 22 98 10/27/19 15:17 36.5 C 77 18 144/78 H 94 10/27/19 15:13 81 24 144/78 H 99 Diagnostic Findings CXR: L lung infiltrate is improved from prior ECG Additional Comments: T wave inversion, anterior leads Code Status & VTE Plan Code Status Pt initially requests DNR/DNI per pt "I am ready to go.". Family is present and agrees. Called back to pt room as pt has decided that he is agreeable to cardiac resuscitation, "but I don't want no machines at all". Family is still present and agrees to change. PG Care Time/CCT Total # of Minutes Spent Total Time Spent with Patient: Total time spent is greater than 50% in coordination of care (as documented) at patient's floor/unit and/or counseling patient: (1) 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
--- NOTE | 2019-10-27 17:34 | Electrocardiogram Report ---
Test Reason : Blood Pressure : / mmHG Vent. Rate : 080 BPM Atrial Rate : 080 BPM P-R Int : 144 ms QRS Dur : 116 ms QT Int : 386 ms P-R-T Axes : 033 -55 106 degrees QTc Int : 445 ms Normal sinus rhythm Non-specific intra-ventricular conduction delay Abnormal ECG When compared with ECG of 24-SEP-2019 14:31, T wave inversion more evident in Lateral leads Confirmed by Santiago Dobbs ([id number]) on 10/27/2019 5:33:57 PM Referred By: REFERRED SELF Confirmed By:Santiago Dobbs
[2019-10-27] MEDS ORDERED: MAGNESIUM HYDROXIDE SUSP 30 ML UDC PO PRN (17:53)
[2019-10-27] MEDS ORDERED: ALBUTEROL HFA 8 GM INHALER INH PRN (17:53)
[2019-10-27] MEDS ORDERED: ALBUT/IPRATROP 3MG/0.5MG NEB 3 ML VIAL NEB ONE (17:53)
[2019-10-27] MEDS ORDERED: ACETAMINOPHEN 325 MG TAB PO PRN (17:53)
[2019-10-27] MEDS ORDERED: ONDANSETRON INJ 2 MG/ML 2 ML VIAL IV PRN (17:53)
--- NOTE | 2019-10-27 18:02 | Emergency Department Note ---
Entered by Maddie Wagner acting as a scribe for History of Present Illness General Chief complaint: Chest Pain Stated complaint: chest pain Time Seen by Provider: 10/27/19 15:09 Source: patient History of Present Illness Provider complaint: Chest Pain Onset (ago): hour(s) 2 Location: chest Radiation: non-radiation Pain Consistency: + constant Maximum Pain Intensity: 8 Relieved By: + none Exacerbated By: + none Associated symptoms: + denies other symptoms (Back pain) and + shortness of breath; no nausea/vomiting The patient is a 84 year old male who presents to the Emergency Room with complaints of constant chest pain that began 2 hours ago. The patient states that his pain does not radiate anywhere else on his body and is not relieved nor exacerbated by anything specific. The patient reports experiencing shortness of breath but denies any back pain or nausea/vomiting. The patient notes that the chest pain began when he was sitting down and he took 2 nitro and 4 baby aspirin with no change in symptoms. The patient mentioned that he has had 4 stents placed and had a heart attack about 3 weeks ago. Additionally, the patient has a history of lung cancer as well as COPD and emphysema. Home Medications Home Medications Medication Instructions Recorded Confirmed Type albuterol sulfate [Ventolin HFA] 2 puff INHALATION QID PRN 06/25/18 10/27/19 History cholecalciferol (vitamin D3) 1,000 unit PO BID 06/25/18 10/27/19 History [Vitamin D3] nitroglycerin [Nitrostat] 1 tab SUBLINGUAL UD PRN 06/25/18 10/27/19 History topiramate [Topamax] 25 mg PO QAM 09/19/19 10/27/19 History verapamil 120 mg PO QAM 09/19/19 10/27/19 History aspirin [Ecotrin Low Strength] 81 mg PO QAM #30 tab 09/27/19 10/27/19 Rx Breo Ellipta 1 inh INHALATION QPM 10/27/19 10/27/19 History carvedilol [Coreg] 3.125 mg PO BID 10/27/19 10/27/19 History ticagrelor [Brilinta] 90 mg PO BID 10/27/19 10/27/19 History Allergies Allergy/AdvReac Type Severity Reaction Status Date / Time Cephalosporins Allergy Intermediate Rash Verified 10/27/19 15:23 fluticasone Allergy Intermediate Rash Verified 10/27/19 15:23 Iodinated Contrast Media Allergy Intermediate Hives Verified 10/27/19 15:23 oxycodone Allergy Intermediate HIVES Verified 10/27/19 15:23 Penicillins Allergy Intermediate Rash Verified 10/27/19 15:23 salmeterol Allergy Mild Rash Verified 10/27/19 15:23 cephalexin [From Keflex] Allergy Unknown Unknown Verified 10/27/19 15:23 pravastatin Allergy Unknown Unknown Verified 10/27/19 15:23 prednisone Allergy Unknown Unknown Verified 10/27/19 15:23 atorvastatin AdvReac Mild MUSCLE Verified 10/27/19 15:23 ACHES fluvastatin AdvReac Mild MUSCLE Verified 10/27/19 15:23 ACHES lisinopril AdvReac Mild Cough Verified 10/27/19 15:23 rosuvastatin AdvReac Mild MUSCLE Verified 10/27/19 15:23 ACHES Past Med/Surg History Medical History Abnormal EKG (Deleted) Acute systolic CHF (congestive heart failure) CAD (coronary artery disease) (Chronic) Cancer of lung (Resolved) 1998 LOBECTOMY. 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 HEMIPLEGIC MIGRAINE AND NO PROBLEMS SINCE Hypertension (Chronic) Pancreatic cyst (Chronic) Pulmonary emphysema (Acute) Seroma after procedure Solitary pulmonary nodule (Acute) STEMI (ST elevation myocardial infarction) 4 STENT 2015 Unstable angina (Deleted) Vitamin D deficiency (Chronic) Surgical History History of cardiac catheterization (Chronic ~2016) 2016 [place] WITH [address] SABILLON LAST SEEN 06/23/18 Hx of cataract surgery S/P appendectomy S/P excision of lipoma (Resolved) S/P lobectomy of lung LEFT S/P total knee arthroplasty LEFT Stented coronary artery (Deleted) Family History Brother Cancer Hypertension Sister Cancer Hypertension Diabetes Mother Hypertension Diabetes Unknown Coronary heart disease Father Coronary heart disease Daughter Breast cancer Social History Preferred Language: Indonesian Communication Ability: Effective Wheel Cleaner Required: No Beliefs That Will Affect Care: None Current Living Situation: Spouse Other Information That Helps Us Care for You: No Feels Safe at Home: Yes Safety Concerns: Feels Safe At This Time Smoking Status: Former smoker Do You Dip or Chew Tobacco: No ; Smoking End Date: 25 years ago ; Second Hand Exposure: No ; Tobacco Cessation Education Requested by Patient: No Hx Alcohol Use: No Hx Substance Use: No Review of Systems See HPI for pertinent positives & negatives. and A total of 10 systems reviewed and were otherwise negative Physical Exam Vital Signs Vital Signs - 24 hr 10/27/19 15:13 10/27/19 15:17 10/27/19 15:20 Temperature 36.5 C Temperature Source Oral Pulse Rate 81 77 79 Pulse Rate from SpO2 Sensor 82 79 Respiratory Rate 24 18 22 Respiratory Effort / Characteristics Non-Labored Respiratory Depth Normal Blood Pressure 144/78 H 144/78 H Blood Pressure Mean 99 100 Blood Pressure Position Sitting Pulse Oximetry 99 94 98 Oxygen Delivery Method Room Air Sepsis Recent Fever Within 48 Hours No Sepsis Action Taken by Nursing No Action Required 10/27/19 15:24 10/27/19 15:28 10/27/19 15:30 Temperature Temperature Source Pulse Rate 75 Pulse Rate from SpO2 Sensor 77 Respiratory Rate 19 Respiratory Effort / Characteristics Respiratory Depth Blood Pressure Blood Pressure Mean Blood Pressure Position Pulse Oximetry 96 94 98 Oxygen Delivery Method Room Air Room Air Sepsis Recent Fever Within 48 Hours Sepsis Action Taken by Nursing 10/27/19 16:00 10/27/19 16:17 10/27/19 16:30 Temperature Temperature Source Pulse Rate 70 69 74 Pulse Rate from SpO2 Sensor 67 74 75 Respiratory Rate 20 21 22 Respiratory Effort / Characteristics Respiratory Depth Blood Pressure 103/64 129/75 Blood Pressure Mean 69 92 Blood Pressure Position Pulse Oximetry 96 96 97 Oxygen Delivery Method Sepsis Recent Fever Within 48 Hours Sepsis Action Taken by Nursing 10/27/19 16:31 10/27/19 17:00 10/27/19 17:01 Temperature Temperature Source Pulse Rate 77 77 73 Pulse Rate from SpO2 Sensor 73 77 74 Respiratory Rate 25 H 18 26 H Respiratory Effort / Characteristics Respiratory Depth Blood Pressure 138/92 Blood Pressure Mean 94 Blood Pressure Position Pulse Oximetry 97 98 99 Oxygen Delivery Method Sepsis Recent Fever Within 48 Hours Sepsis Action Taken by Nursing GENERAL: Patient is awake, alert, and in no acute distress.Patient is resting comfortably and showing no signs of anxiety EYES: The conjunctivae are clear. The pupils are round and reactive. EARS, NOSE, MOUTH AND THROAT: The nose is without any evidence of any deformity. Mucous membranes are moist.Tongue is midline NECK: The neck is nontender and supple. RESPIRATORY: Normal respiratory effort is noted. There is no evidence of wheezing rhonchi or rales to auscultation. CARDIOVASCULAR: Regular rate and rhythm noted. There no murmurs rubs or gallops normal S1 normal S2 GASTROINTESTINAL: The abdomen is soft. Bowel sounds are present in all quadrants. Abdomen is nontender. MUSCULOSKELETAL/EXTREMITIES: There is no evidence of gross deformity. Full range of motion is noted in the hips and shoulders. SKIN: There is no obvious evidence of any rash. There are no petechiae, pallor or cyanosis noted. Trace pedal edema bilaterally. Skin is warm and dry. NEUROLOGIC: Patient is awake alert and oriented x3. Course Course 1524: Past medical records reviewed. The patient was evaluated in room B09. A complete history and physical exam was performed. 1609: I spoke with Dr. Emelyn Botello about the patient's case and she will accept the patient for further evaluation. Administered Medications Acetaminophen (Tylenol) 650 mg PO Q4H PRN PRN Reason: Pain or Fever Stop: 11/26/19 17:52 Last Admin: 10/27/19 18:13 Dose: 650 mg Documented by: [id number] Discontinued Medications Albuterol (Duoneb) 12 ml NEB ONE ONE Stop: 10/27/19 17:54 Last Admin: 10/27/19 18:42 Dose: 12 ml Documented by: [id number] Medical Decision Making Differential Diagnosis Differential diagnosis: Etiologies such as shingles, musculoskeletal pain, pericarditis, myocarditis, cardiac ischemia, pericardial tamponade, pneumonia, pneumothorax, pleural effusion, hemothorax, pleurisy, aortic pathology, pulmonary embolism, intra- abdominal process, as well as others were considered. Medical Records Attestation: I reviewed the patient's medical records. Home Medications Current Medication List: was personally reviewed by me Laboratory Data Attestation: I reviewed the patient's lab results. Result diagrams: 10/27/19 14:40 10/27/19 14:40 Lab Results 10/27/19 10/27/19 10/27/19 Range/Units 14:40 14:40 14:40 WBC 6.44 (4.8-10.8) K/uL RBC 4.63 L (4.7-6.1) M/uL Hgb 13.9 L (14.0-18.0) g/dL Hct 41.0 L (42-52) % MCV 88.6 (80-100) fL MCH 30.0 (25-34) pg MCHC 33.9 (32-36) g/dL RDW Std Deviation 46.6 H (36.4-46.3) fL RDW Coeff of Falguni 14.5 (11.5-14.5) % Plt Count 169 (130-400) K/uL MPV 11.5 H (7.4-10.4) fL Immature Gran % (Auto) 0.8 % Neut % (Auto) 69.2 % Lymph % (Auto) 15.8 % [place] % (Auto) 10.9 % Eos % (Auto) 2.5 % Baso % (Auto) 0.8 % Immature Gran # (Auto) 0.05 H (0.00-0.02) K/uL Neut # (Auto) 4.46 (1.4-6.5) K/uL Lymph # (Auto) 1.02 L (1.2-3.4) K/uL [place] # (Auto) 0.70 H (0.11-0.59) K/uL Eos # (Auto) 0.16 (0-0.5) K/uL Baso # (Auto) 0.05 (0-0.2) K/uL PT 10.5 (9.0-12.0) Seconds INR 1.0 (0.9-1.1) APTT 26.3 (21.0-31.0) Seconds PTT Ratio 1.0 Sodium 141 (136-145) mmol/L Potassium 3.9 (3.5-5.1) mmol/L Chloride 111 H (98-107) mmol/L Carbon Dioxide 27 (21-32) mmol/L Anion Gap 3.0 (3-11) BUN 18 (7-18) mg/dl Creatinine 1.40 (0.6-1.4) mg/dl Est Cr Clr Drug Dosing 43.9 ml/min Est GFR ( Amer) 53.5 Est GFR (Non-Af Amer) 46.1 BUN/Creatinine Ratio 12.6 (10-20) Glucose 79 (70-99) mg/dl Calcium 8.7 (8.5-10.1) mg/dl Total Bilirubin 1.1 H (0.2-1) mg/dl AST 11 L (15-37) U/L ALT 17 (12-78) U/L Alkaline Phosphatase 63 (45-117) U/L Total Creatine Kinase 42 (39-308) U/L CK-MB (CK-2) 1.5 (0.5-3.6) ng/ml CK/CKMB % Calc 3.6 H (0-3.0) Troponin I < 0.015 (0-0.045) ng/ml Total Protein 7.0 (6.4-8.2) gm/dl Albumin 3.2 L (3.4-5.0) gm/dl Globulin 3.8 (2.5-4.0) gm/dl Albumin/Globulin Ratio 0.8 L (0.9-2) Lipase 161 (73-393) U/L 10/27/19 Range/Units 14:40 WBC (4.8-10.8) K/uL RBC (4.7-6.1) M/uL Hgb (14.0-18.0) g/dL Hct (42-52) % MCV (80-100) fL MCH (25-34) pg MCHC (32-36) g/dL RDW Std Deviation (36.4-46.3) fL RDW Coeff of Falguni (11.5-14.5) % Plt Count (130-400) K/uL MPV (7.4-10.4) fL Immature Gran % (Auto) % Neut % (Auto) % Lymph % (Auto) % [place] % (Auto) % Eos % (Auto) % Baso % (Auto) % Immature Gran # (Auto) (0.00-0.02) K/uL Neut # (Auto) (1.4-6.5) K/uL Lymph # (Auto) (1.2-3.4) K/uL [place] # (Auto) (0.11-0.59) K/uL Eos # (Auto) (0-0.5) K/uL Baso # (Auto) (0-0.2) K/uL PT (9.0-12.0) Seconds INR (0.9-1.1) APTT (21.0-31.0) Seconds PTT Ratio Sodium (136-145) mmol/L Potassium (3.5-5.1) mmol/L Chloride (98-107) mmol/L Carbon Dioxide (21-32) mmol/L Anion Gap (3-11) BUN (7-18) mg/dl Creatinine (0.6-1.4) mg/dl Est Cr Clr Drug Dosing ml/min Est GFR ( Amer) Est GFR (Non-Af Amer) BUN/Creatinine Ratio (10-20) Glucose (70-99) mg/dl Calcium (8.5-10.1) mg/dl Total Bilirubin (0.2-1) mg/dl AST (15-37) U/L ALT (12-78) U/L Alkaline Phosphatase (45-117) U/L Total Creatine Kinase Cancelled (39-308) U/L CK-MB (CK-2) Cancelled (0.5-3.6) ng/ml CK/CKMB % Calc Cancelled (0-3.0) Troponin I (0-0.045) ng/ml Total Protein (6.4-8.2) gm/dl Albumin (3.4-5.0) gm/dl Globulin (2.5-4.0) gm/dl Albumin/Globulin Ratio (0.9-2) Lipase (73-393) U/L Imaging Data Radiologist's Impression: Radiology results as stated below per my review and the radiologist's interpretation: XR chest 1V portable CLINICAL HISTORY: Chest Pain pain COMPARISON STUDY: 09/19/2019 FINDINGS: The patient is slightly rotated to the left. This accentuates the left paratracheal soft tissues as well as left hilar shadows. Pre-existing fibrotic changes left mid lung as well as pleural reactive change left lateral hemithorax. Chronic elevation left hemidiaphragm. Right lung is clear. Infiltrative process of the left lung is improved. IMPRESSION: Improved exam with improved infiltrative process involving the left lung. Pre-existing postoperative changes are stable. ACT 112: Negative or not required by law. The above report was generated using voice recognition software. It may contain grammatical, syntax or spelling errors. Electronically signed by: Austin Mayberry M.D. 10/27/2019 3:43 PM ECG Data Attestation: I personally reviewed and interpreted this ECG as follows: Indication: + chest pain Rate (beats per minute): 80 Rhythm: + normal sinus ECG Intervals/blocks: + Left bundle branch block ECG ST segments: + T-wave inversions (Lateral and Anterior) ECG Findings: no PACs and no PVCs Comparison ECG Date: from (09/24/19) Change: the following changes noted (Anterior T- Wave Inversion is new) Blood Pressure Blood Pressure Findings: Elevated blood pressure Blood Pressure Disposition: further management by hospitalist SATHYA Nam The patient is an 84-year-old male who presented to the emergency department for an evaluation of chest pain. The patient was recently treated for coronary artery disease with stenting. He continues to take his antiplatelet therapy. The patient's pain was constant ever since the onset. He was treated with aspirin nitroglycerin. He was found to have abnormal EKG compared to previous but I am unsure if this represents the patient's evolution of his EKG compared to his previous given his recent cardiac intervention. I discussed the patient's laboratory and radiographic studies with him. I also discussed the limitations of the emergency department work-up for chest pain with him. Ultimately I discussed his case with the on-call [facility] hospitalist. They have agreed to evaluate the patient in the emergency department for further management and disposition. Impression & Plan Chest pain, Abnormal EKG Discharge Plan Visit Data *Final* Discharge Date/Time: 10/27/19 17:45 Chief Complaint: Chest Pain Stated Complaint: chest pain ED Provider: Donald Dorado Discharge Problem: Chest pain, Abnormal EKG Patient Disposition: Admitted As Inpatient Discharge Instructions Interventions: ED Discharge Assessment Last Done: 10/27/19 17:45 Discharge Problem: Chest pain Qualifiers: Chest pain type: unspecified Qualified Code(s): R07.9 - Chest pain, unspecified The scribe's documentation has been prepared under my direction and personally reviewed by me in its entirety. I confirm that the note above accurately reflects all work, treatment, procedures, and medical decision making performed by me.
[2019-10-27] MEDS: carvediloL 3.125 MG TAB PO SCH (19:51)
[2019-10-27] MEDS: CHOLECALCIFEROL 1,000 UNITS TAB PO SCH (19:51)
[2019-10-27] MEDS: TICAGRELOR 90 MG TAB PO SCH (19:51)
[2019-10-27] MEDS: FLUTICASONE/VILANTEROL 100/25MCG 14 PUFFS/INHALER INH SCH (19:52)
[2019-10-27] MEDS ORDERED: FLUTICASONE/VILANTEROL 100/25MCG 14 PUFFS/INHALER INH ONE (21:00)
[2019-10-28] MEDS: NITROGLYCERIN SL 0.4 MG/TAB TAB SL PRN ×2 (03:12→03:31)
--- NOTE | 2019-10-28 09:07 | Cardiology Consultation ---
Date of Consultation October 28, 2019 Assessment & Plan (1) Chest pain: 2. Severe multivessel CAD post recent STEMI with POBA D1; hx repeated LAD/diagonal interventions 3. Ischemic cardiomyopathy (EF 35-40%) 4. Hypertension 5. Dyslipidemia 6. Migraine headaches 7. COPD/recent pneumonia 8. Paroxysmal atrial tachycardia Patient with acute onset chest pain reminiscent of prior symptoms with acute VA. Does have more prominent lateral T wave inversions on EKGs. Suspect this represents evolving VA and reassuring that troponin has remained negative despite more than 12 hours of ongoing symptoms. Still no other clear etiology for patient's chest pain and in the setting of patient's prior history including balloon angioplasty alone suspicion for some coronary process remains elevated. Limited options for noninvasive assessment. Otherwise symptoms atypical for post VA pericarditis but following [employer]OR [employer] attempted intervention will repeat echocardiogram to evaluate for pericardial effusion. Lungs clear and chest x-ray unremarkable. LFTs, lipase unremarkable. Recommendations: Repeat echocardiogram this morning Following echo will reassess and consider cardiac catheterizations afternoon. Please keep n.p.o., will pretreat for contrast allergy as needed Continue current DAPT with aspirin, ticagrelor Continue carvedilol, verapamil Plan to likely start ARB this hospitalization for ICM. History of Present Illness Attending Physician: Juan Ramon Corona History of Present Illness Mr. Singleton is a very pleasant 84 year old male well-known to me from prior hospitalizations and the outpatient setting readmitted with recurrent chest pain. Patient with longstanding coronary artery disease with multiple prior stents to his LAD and first diagonal. He is post recent anterior STEMI 1 month ago with occlusion just proximal to prior LAD stents treated with balloon angioplasty to LAD into first diagonal stents by Dr. Myers. Brief attempt made at intervention to known mid LAD [employer]OR [employer]. Some brief atrial tachycardia but otherwise hospital course uncomplicated. Repeat echo showed moderately reduced LV function, EF 35 to 40%. Initial STEMI in June 2015. Other medical issues include hypertension, COPD, complicated migraines and history of lung cancer status post lobectomy. Has been chest pain-free post discharge until yesterday when approximately 130 developed acute onset substernal chest pain, same location as prior VA. Pain unresponsive to nitroglycerin and EMS contacted. Hemodynamically stable on arrival. EKG showed sinus rhythm with new lateral T wave inversions. Serial troponins have been negative. Has had persistent chest pain overnight largely unchanged. Chest pain unchanged with position, meals or palpation. Allergies Allergy/AdvReac Type Severity Reaction Status Date / Time Cephalosporins Allergy Intermediate Rash Verified 10/27/19 15:23 fluticasone Allergy Intermediate Rash Verified 10/27/19 15:23 Iodinated Contrast Media Allergy Intermediate Hives Verified 10/27/19 15:23 oxycodone Allergy Intermediate HIVES Verified 10/27/19 15:23 Penicillins Allergy Intermediate Rash Verified 10/27/19 15:23 salmeterol Allergy Mild Rash Verified 10/27/19 15:23 cephalexin [From Keflex] Allergy Unknown Unknown Verified 10/27/19 15:23 pravastatin Allergy Unknown Unknown Verified 10/27/19 15:23 prednisone Allergy Unknown Unknown Verified 10/27/19 15:23 atorvastatin AdvReac Mild MUSCLE Verified 10/27/19 15:23 ACHES fluvastatin AdvReac Mild MUSCLE Verified 10/27/19 15:23 ACHES lisinopril AdvReac Mild Cough Verified 10/27/19 15:23 rosuvastatin AdvReac Mild MUSCLE Verified 10/27/19 15:23 ACHES Home Medications Home Medications Medication Instructions Recorded Confirmed Type albuterol sulfate [Ventolin HFA] 2 puff INHALATION QID PRN 06/25/18 10/27/19 History cholecalciferol (vitamin D3) 1,000 unit PO BID 06/25/18 10/27/19 History [Vitamin D3] nitroglycerin [Nitrostat] 1 tab SUBLINGUAL UD PRN 06/25/18 10/27/19 History topiramate [Topamax] 25 mg PO QAM 09/19/19 10/27/19 History verapamil 120 mg PO QAM 09/19/19 10/27/19 History aspirin [Ecotrin Low Strength] 81 mg PO QAM #30 tab 09/27/19 10/27/19 Rx Breo Ellipta 1 inh INHALATION QPM 10/27/19 10/27/19 History carvedilol [Coreg] 3.125 mg PO BID 10/27/19 10/27/19 History ticagrelor [Brilinta] 90 mg PO BID 10/27/19 10/27/19 History Patient History Medical History Abnormal EKG (Deleted) Acute systolic CHF (congestive heart failure) CAD (coronary artery disease) (Chronic) Cancer of lung (Resolved) 1999 LOBECTOMY. 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 HEMIPLEGIC MIGRAINE AND NO PROBLEMS SINCE Hypertension (Chronic) Pancreatic cyst (Chronic) Pulmonary emphysema (Acute) Seroma after procedure Solitary pulmonary nodule (Acute) STEMI (ST elevation myocardial infarction) 4 STENT 2016 Unstable angina (Deleted) Vitamin D deficiency (Chronic) Surgical History History of cardiac catheterization (Chronic ~2016) [place] [address] ST[address] SABILLON LAST SEEN 06/23/18 Hx of cataract surgery S/P appendectomy S/P excision of lipoma (Resolved) S/P lobectomy of lung LEFT S/P total knee arthroplasty LEFT Stented coronary artery (Deleted) Family History Brother Cancer Hypertension Sister Cancer Hypertension Diabetes Mother Hypertension Diabetes Unknown Coronary heart disease Father Coronary heart disease Daughter Breast cancer Social History Preferred Language: Mexican Communication Ability: Effective Hat Band Attacher Required: No Beliefs That Will Affect Care: None Current Living Situation: Spouse Other Information That Helps Us Care for You: No Feels Safe at Home: Yes Safety Concerns: Feels Safe At This Time Smoking Status: Former smoker Do You Dip or Chew Tobacco: No ; Smoking End Date: 25 years ago ; Second Hand Exposure: No ; Tobacco Cessation Education Requested by Patient: No Hx Alcohol Use: No Hx Substance Use: No Review of Systems Review of Systems: All systems reviewed & are unremarkable except as noted in HPI & below Physical Exam Physical Exam: General: Comfortable, no acute distress Eyes: Sclerae anicteric, extraocular movements intact HENT: Oropharynx clear mucous membranes moist Neck: Normal carotid upstrokes, no bruits. No JVD. Lungs: Clear to auscultation bilaterally, no rhonchi or wheezes Cardiac: Regular rate and rhythm, no murmurs, rubs or gallops. No chest pain with palpation. Vascular: 2+ radial bilaterally Abdomen: Soft, nontender, nondistended, positive bowel sounds. Extremities: Well perfused, no peripheral edema Skin: No rashes or lesions. Neuro: Nonfocal Psych: Alert orient x3, normal affect and mood Results & Data Vital Signs (Past 12 Hours) Vital Signs Temp Pulse Resp BP Pulse Ox 10/28/19 08:05 98.2 F 74 16 134/68 97 10/28/19 03:18 108/63 10/28/19 03:03 97.3 F L 70 18 120/72 98 10/28/19 00:25 97.5 F L 70 18 113/69 98 PG Care Time/CCT Total # of Minutes Spent Total Time Spent with Patient: Total time spent is greater than 50% in coordination of care (as documented) at patient's floor/unit and/or counseling patient: (1) Chest pain Chest pain type: unspecified Qualified Code(s): R07.9 - Chest pain, unspecified
[2019-10-28] MEDS: CHOLECALCIFEROL 1,000 UNITS TAB PO SCH ×2 (09:23→21:04)
[2019-10-28] MEDS: ASPIRIN 81 MG ECTAB PO SCH (09:24)
[2019-10-28] MEDS: TICAGRELOR 90 MG TAB PO SCH ×2 (09:24→21:04)
[2019-10-28] MEDS: TOPIRAMATE 25 MG TAB PO SCH (09:24)
[2019-10-28] MEDS: carvediloL 3.125 MG TAB PO SCH ×2 (09:24→21:05)
[2019-10-28] MEDS: VERAPAMIL HCL 120 MG TABCR PO SCH (09:24)
--- NOTE | 2019-10-28 11:48 | Electrocardiogram Report ---
Test Reason : Blood Pressure : / mmHG Vent. Rate : 069 BPM Atrial Rate : 069 BPM P-R Int : 144 ms QRS Dur : 122 ms QT Int : 428 ms P-R-T Axes : 005 -51 113 degrees QTc Int : 458 ms Normal sinus rhythm Left anterior fascicular block Abnormal ECG When compared with ECG of 27-OCT-2019 15:11, No significant change was found Confirmed by Santiago Dobbs ([id number]) on 10/28/2019 11:47:29 AM Referred By: REFERRED SELF Confirmed By:Santiago Dobbs
--- NOTE | 2019-10-28 11:58 | Electrocardiogram Report ---
Test Reason : Blood Pressure : / mmHG Vent. Rate : 079 BPM Atrial Rate : 000 BPM P-R Int : 000 ms QRS Dur : 120 ms QT Int : 394 ms P-R-T Axes : 000 -54 107 degrees QTc Int : 451 ms Sinus rhythm Left anterior fascicular block Minimal voltage criteria for LVH, may be normal variant ( Henderson product ) Abnormal ECG When compared with ECG of 28-OCT-2019 03:10, No significant change Confirmed by Santiago Dobbs ([id number]) on 10/28/2019 11:58:27 AM Referred By: REFERRED SELF Confirmed By:Santiago Dobbs
[2019-10-28] MEDS ORDERED: CHLORASEPTIC 1.4% SOLN 180 ML BTL MT PRN (12:01)
[2019-10-28] MEDS: COLCHICINE 0.6 MG TAB PO SCH ×2 (13:01→21:03)
[2019-10-28] MEDS: FLUTICASONE/VILANTEROL 100/25MCG 14 PUFFS/INHALER INH SCH (21:03)
--- NOTE | 2019-10-28 22:15 | Hospitalist Progress Note ---
Date of Service October 28, 2019 Assessment & Plan (1) Chest pain: Uncertain etiology, concerning given recent STEMI 09/2019 Appreciate input from cardiology Patient with acute onset chest pain similar to prior symptoms with acute [place]. Does have more prominent lateral T wave inversions on EKGs. Concern over possible [place]. However plan initially was to do a cath if echo was worse. Echocardiogram was performed and it was improved from previous echo. Continue current DAPT with aspirin, ticagrelor Continue carvedilol, verapamil Plan to likely start ARB this hospitalization for ICM. (2) H/O: lung cancer: s/p lobectomy in 1998 Follows with [facility] pulm Appt this week was w/o new concerns (3) Solitary pulmonary nodule: Possibly causing pleuritic pain t/c CT chest if ongoing and neg cardiac w/u Recent CT chest 09/2019 (4) Dyslipidemia: continue home meds (5) Complicated migraine: topamax, verapamil--continue (6) COPD (chronic obstructive pulmonary disease): continue home meds Nebs x1 for wheeze Monitor with PRN (7) History of cardiac catheterization: STEMI 09/2019, no stents placed Prior cath in 2016 with stents placed (8) HTN (hypertension): continue home meds (9) DVT prophylaxis: SCDs, ambulation Subjective Patient reports doing well. He has no new complaints. Review of Systems Review of Systems: All systems reviewed & are unremarkable except as noted in HPI & below Physical Exam Physical Exam: Constitutional: WD/WN, vitals as above Eyes: normal visual chang by confrontation and + anicteric sclerae Neck: normal visual inspection and trachea midline Respiratory: normal respiratory effort; no respiratory distress Auscultation: no wheezing; no crackles Cardiovascular: Rate/Rhythm: regular rate and regular rhythm Gastrointestinal (Abdomen): Inspection/Auscultation: abdomen not distended Percussion/Palpation: abdomen soft; abdomen nontender Musculoskeletal: Head/Neck/Chest: normocephalic and head atraumatic negative for edema, peripheral pulses intact Skin: no rashes, warm and dry Neurologic: awake; not confused Speech / Cognition: normal speech Psychiatric: A+Ox3, euthymic affect Results & Data Vital Signs (Past 12 Hours) Vital Signs Temp Pulse Resp BP Pulse Ox 10/28/19 20:00 36.5 C 72 18 119/68 97 01/17/20 15:37 36.6 C 66 18 110/68 98 10/28/19 11:05 36.7 C 79 18 121/72 98 PG Care Time/CCT Total # of Minutes Spent Total Time Spent with Patient: Total time spent is greater than 50% in coordination of care (as documented) at patient's floor/unit and/or counseling patient: (1) 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
[2019-10-29] MEDS: TICAGRELOR 90 MG TAB PO SCH (08:13)
[2019-10-29] MEDS: carvediloL 3.125 MG TAB PO SCH (08:13)
[2019-10-29] MEDS: CHOLECALCIFEROL 1,000 UNITS TAB PO SCH (08:13)
[2019-10-29] MEDS: VERAPAMIL HCL 120 MG TABCR PO SCH (08:13)
[2019-10-29] MEDS: ASPIRIN 81 MG ECTAB PO SCH (08:13)
[2019-10-29] MEDS: TOPIRAMATE 25 MG TAB PO SCH (08:13)
[2019-10-29] MEDS: COLCHICINE 0.6 MG TAB PO SCH (08:14)
[2019-10-29] MEDS ORDERED: VALSARTAN 80 MG TAB PO SCH (09:00)
--- NOTE | 2019-10-29 11:25 | Electrocardiogram Report ---
Test Reason : Blood Pressure : / mmHG Vent. Rate : 077 BPM Atrial Rate : 077 BPM P-R Int : 192 ms QRS Dur : 130 ms QT Int : 402 ms P-R-T Axes : 069 -53 110 degrees QTc Int : 454 ms Normal sinus rhythm Left axis deviation Left ventricular hypertrophy with QRS widening and repolarization abnormality Cannot rule out Septal infarct , age undetermined Abnormal ECG When compared with ECG of 28-OCT-2019 07:01, Minimal criteria for Septal infarct are now Present Confirmed by Jim Zamora ([id number]) on 10/29/2019 11:25:11 AM Referred By: REFERRED SELF Confirmed By:Jim Zamora
--- NOTE | 2019-10-31 10:52 | XCELERA ---
[id number] \\[id number]\[id number]
--- NOTE | 2019-11-04 00:23 | Discharge Summary ---
Date of Service October 29, 2019 Admission HPI Per Admitting Provider 84 y/o M c/o chest pain. Pt states he was sitting watching television today when he had sudden onset of L sided chest pain. This was around 1:30. The pain was L lateral chest and did not radiate. It was so intense that it took his breath away. He could lessen it with sitting forward. Pt had a STEMI in September. At that time, his pain was substernal, but pt states that the intensity was similar to the pain he had today but just in a different location. Pt has felt fine otherwise. He states that yesterday they went shopping and did a lot of walking, which he had no trouble with. He has not had chest pain since his cath in September, nor SOB. Pt follows with [facility] for hx of lung cancer, s/p LLL lobectomy in 1998. He has known nodules but they have been stable for quite some time and are being monitored periodically. He saw [facility] pul this week and was told he was doing well. Pt usually takes Breo in the afternoon, but missed today's dosing due to being in the ED. He does get some wheezing if he does not take this dose. Cath in September with Dr. Sahu was noted for LAD disease. Report does not open on system, but family states ballooning was done, but no stents were placed. Pt has been c/w aspirin 81mg and brillinta since d/c. Principal Diagnosis chest pain Discharge Exam Constitutional: WD/WN, vitals as above Eyes: normal visual chang by confrontation and + anicteric sclerae Neck: normal visual inspection and trachea midline Respiratory: normal respiratory effort; no respiratory distress Auscultation: no wheezing; no crackles Cardiovascular: Rate/Rhythm: regular rate and regular rhythm Gastrointestinal (Abdomen): Inspection/Auscultation: abdomen not distended Percussion/Palpation: abdomen soft; abdomen nontender Musculoskeletal: Head/Neck/Chest: normocephalic and head atraumatic negative for edema, peripheral pulses intact Skin: no rashes, warm and dry Neurologic: awake; not confused Speech / Cognition: normal speech Psychiatric: A+Ox3, euthymic affect Discharge Data Allergies Allergy/AdvReac Type Severity Reaction Status Date / Time Cephalosporins Allergy Intermediate Rash Verified 11/02/19 08:59 fluticasone Allergy Intermediate Rash Verified 11/02/19 08:59 Iodinated Contrast Media Allergy Intermediate Hives Verified 11/02/19 08:59 oxycodone Allergy Intermediate HIVES Verified 11/02/19 08:59 Penicillins Allergy Intermediate Rash Verified 11/02/19 08:59 salmeterol Allergy Mild Rash Verified 11/02/19 08:59 cephalexin [From Keflex] Allergy Unknown Unknown Verified 11/02/19 08:59 pravastatin Allergy Unknown Unknown Verified 11/02/19 08:59 prednisone Allergy Unknown Unknown Verified 11/02/19 08:59 atorvastatin AdvReac Mild MUSCLE Verified 11/02/19 08:59 ACHES fluvastatin AdvReac Mild MUSCLE Verified 11/02/19 08:59 ACHES lisinopril AdvReac Mild Cough Verified 11/02/19 08:59 rosuvastatin AdvReac Mild MUSCLE Verified 11/02/19 08:59 ACHES Consultations 10/27/19 16:41 ED Decision to Admit Stat 10/27/19 17:53 Consult Cardiology Routine Procedures Performed Operation Date: 10/28/19 12:30 <No data on this case meets the specified criteria> Ordered Studies 10/28/19 11:24 CL Cath Imgs for PACS use only Routine Hospital Course (1) Chest pain: Uncertain etiology, concerning given recent STEMI 09/2019 Appreciate input from cardiology Patient with acute onset chest pain similar to prior symptoms with acute [place]. Does have more prominent lateral T wave inversions on EKGs. Concern over possible [place]. However plan initially was to do a cath if echo was worse. Echocardiogram was performed and it was improved from previous echo. Continue current DAPT with aspirin, ticagrelor Continue carvedilol, verapamil Plan to likely start ARB this hospitalization for ICM. (2) H/O: lung cancer: s/p lobectomy in 1998 Follows with [facility] pulm Appt this week was w/o new concerns (3) Solitary pulmonary nodule: Possibly causing pleuritic pain t/c CT chest if ongoing and neg cardiac w/u Recent CT chest 09/2019 (4) Dyslipidemia: continue home meds (5) Complicated migraine: topamax, verapamil--continue (6) COPD (chronic obstructive pulmonary disease): continue home meds Nebs x1 for wheeze Monitor with PRN (7) History of cardiac catheterization: STEMI 09/2019, no stents placed Prior cath in 2016 with stents placed (8) HTN (hypertension): continue home meds (9) DVT prophylaxis: SCDs, ambulation Total Time Total Time Spent Total Time Spent (In Minutes): 32 Total Time Includes: Examination of the Patient, Discharge Planning and Medication Reconciliation Discharge Plan Discharge Items Patient Disposition: Home - Self-Care Reason For Visit: CHEST PAIN Discharge Diagnosis: chest pain Activity: Resume your previous activity Non-emergency contact: Primary Care Provider Call non-emergency contact if: you have any medication questions Follow-up/Referrals: Loan Zafar PA-C [Primary Care Provider] - Diet: Regular Addtl Attending Provider Instructions: You will be followed up by PCP and Cardiology within next 7-14 days. Call 911 and go to the Emergency Room if: * You have tightness or pain in your chest that does not go away with rest or Nitroglycerin * You are very short of breath even with rest Call your doctor if any of the following symptoms or problems start or get worse: * Shortness of breath or difficulty breathing * Wake up at night short of breath * Chest pain * Cough * Swelling of your hands, fee, or legs * More fatigued or tired with your normal activity * Palpitations - sudden fast heart beats WEIGHT * Weigh yourself every morning after using the bathroom. * Use the same scale. * Wear the same amount of clothing. * Write your weight down on your chart. * Call your doctor if you gain more than 2-3 pounds in 1-2 days. MEDICATIONS * Use this discharge instruction sheet for instructions. * Take your medications at the time your doctor ordered. * Do not skip a dose of your medicines. * If you miss a dose of medicine, take as soon as possible, but DO NOT DOUBLE A DOSE. * Read your medicine information when you get home. * Know all of the side effects of your medicine. * Call your doctor's office if you have any side effects. * Be sure all of your doctors know what medicine and herbs you take (including cold, flu, and herbal medicine). * Pain Medicine: If you do not get relief from your pain, please call your doctor for help. Take the following with you to your follow-up doctor appointments: * Weight Chart * Medication List * List of questions Do not drink excessive alcohol, beer or wine. Pending Studies at Discharge: No Stand-Alone Forms: My [facility], Smoking Cessation Medications and DC Order Prescriptions: New colchicine 0.6 mg tablet 0.6 mg PO BID Qty: 60 RF: 0 Continued topiramate [Topamax] 25 mg tablet 25 mg PO QAM RF: 0 verapamil 120 mg capsule,ext rel. pellets 24 hr 120 mg PO QAM RF: 0 nitroglycerin [Nitrostat] 0.4 mg Tablet, Sublingual 1 tab Sublingual UD PRN (Reason: Chest Pain) RF: 0 albuterol sulfate [Ventolin HFA] 90 mcg/actuation Hfa Aerosol Inhaler 2 puff Inhalation QID PRN (Reason: SOB) RF: 0 cholecalciferol (vitamin D3) [Vitamin D3] 1,000 unit Capsule 1,000 unit PO BID RF: 0 aspirin [Ecotrin Low Strength] 81 mg Tablet,Delayed Release (Dr/Ec) 81 mg PO QAM Qty: 30 RF: 0 carvedilol [Coreg] 3.125 mg tablet 3.125 mg PO BID RF: 0 Brilinta 90 mg tablet 90 mg PO BID RF: 0 Breo Ellipta 100-25 mcg/dose blister with device 1 inh INHALATION QPM RF: 0 No Action famotidine [Pepcid] 20 mg tablet 20 mg PO DAILY RF: 0 valsartan 40 mg tablet 20 mg PO DAILY RF: 0 Discharge Orders: Discharge Order (Routine); Ordered 10/29/19 Ordered By: Juan Ramon Wilkins/Other Patient Handouts: Understanding Pericardial Effusion Admission Data Admit Date/Time: 10/27/19 17:08 Attending Provider: Juan Ramon Corona Admit Provider: Emelyn Botello Primary Care Provider: Loan Zafar Other Providers: Emelyn Botello ; Froilan Sahu Other Interventions: Discharge Summary Assessment (RN) Last Done: 10/29/19 09:23 DC Date/Time DO NOT enter until pt leaves facility: 10/29/19 09:53 Coding Level of Care Code 35695 OBS Care - Discharge Diagnoses Chest pain R07.9 H/O: lung cancer Z85.118 Solitary pulmonary nodule R91.1 Dyslipidemia E78.5 Complicated migraine G43.109 COPD (chronic obstructive pulmonary disease) J43.9 COPD type: emphysema Emphysema type: unspecified History of cardiac catheterization Z98.890 HTN (hypertension) I10 DVT prophylaxis Z29.9
== END 2019-10-29 09:53 | disposition home or self-care (01) ==
LOC: 2S 15:08 → ED 15:08 → SUATTDRO 17:08 → 2S 17:45

== ENCOUNTER 2020-03-09 07:25 | Observation (INO) ==
[2020-03-09] MEDS ORDERED: LEVALBUTEROL TARTRATE 15 GM HFA.AER.AD INH STA (07:36)
[2020-03-09] MEDS ORDERED: NITROGLYCERIN 2% OINTMENT 30GM TUBE EXT STA (07:36)
[2020-03-09 07:42] LABS: Basophils # (auto) 0.03 K/uL (0-0.2); Basophils % (auto) 0.4 %; Eosinophils % (auto) 1.5 %; Hematocrit (blood only) 40.1 % (42-52); Hemoglobin 13.5 g/dL (14.0-18.0); Immature Granulocytes # (auto) 0.07 K/uL (0.00-0.02); Lymphocytes # (auto) 1.01 K/uL (1.2-3.4); Lymphocytes % (auto) 15.1 %; Mean Corpuscular Hgb Conc 33.7 g/dL (32-36); Mean Corpuscular Volume 89.1 fL (80-100); Mean Platelet Volume 10.3 fL (7.4-10.4); Monocytes # (auto) 0.75 K/uL (0.11-0.59); Monocytes % (auto) 11.2 %; Neutrophils # (auto) 4.72 K/uL (1.4-6.5); Neutrophils % (auto) 70.8 %; Platelet Count 155 K/uL (130-400); White Blood Count 6.68 K/uL (4.8-10.8)
--- NOTE | 2020-03-09 07:47 | Emergency Department Note ---
History of Present Illness General Chief complaint: Chest Pain Time Seen by Provider: 03/09/20 07:30 Source: patient, RN notes reviewed and old records reviewed Mode of arrival: EMS Limitations: no limitations History of Present Illness Provider complaint: chest pain Onset (ago): hour(s) 3 Location: chest Radiation: extremity (left shoulder) Severity: severe and similar to prior episodes Pain Consistency: + now resolved Maximum Pain Intensity: 10 Current Pain Intensity: 0 Quality: + aching Relieved By: + medication (Nitro) Exacerbated By: + movement Associated symptoms: + diaphoresis and + nausea/vomiting; no fever/chills, no shortness of breath and no weakness Treatments prior to arrival: other (Nitro, fentanyl) This is an 84-year-old male that woke up this morning at 4 AM complaining of chest pain that radiated up into his left shoulder. The patient describes the pain as sharp. He reports that it feels like his previous chest pains when he had heart attacks. Patient has [address] He was given fentanyl as well as nitro while in route to the emergency department. Upon arrival to the emergency department the patient has no complaints. He denies any shortness of breath and reports he has been feeling well until lately. Home Medications Home Medications Medication Instructions Recorded Confirmed Type albuterol sulfate [Ventolin HFA] 2 puff INHALATION QID PRN 06/25/18 03/09/20 History cholecalciferol (vitamin D3) 1,000 unit PO BID 06/25/18 03/09/20 History [Vitamin D3] nitroglycerin [Nitrostat] 1 tab SUBLINGUAL UD PRN 06/25/18 03/09/20 History topiramate [Topamax] 25 mg PO QAM 09/19/19 03/09/20 History verapamil 120 mg PO QAM 09/19/19 03/09/20 History aspirin [Ecotrin Low Strength] 81 mg PO QAM #30 tab 09/27/19 03/09/20 Rx Brilinta 90 mg PO BID 10/27/19 03/09/20 History carvedilol [Coreg] 3.125 mg PO BID 10/27/19 03/09/20 History famotidine 20 mg tablet 20 mg PO BID 11/02/19 03/09/20 History colchicine 0.6 mg PO QAM 03/09/20 03/09/20 History fluticasone furoate-vilanterol 1 inh INHALATION DAILY@1430 03/09/20 03/09/20 History [Breo Ellipta] valsartan 20 mg PO QAM 03/09/20 03/09/20 History Allergies Allergy/AdvReac Type Severity Reaction Status Date / Time Cephalosporins Allergy Intermediate Rash Verified 03/09/20 08:43 fluticasone Allergy Intermediate Rash Verified 03/09/20 08:43 Iodinated Contrast Media Allergy Intermediate Hives Verified 03/09/20 08:43 oxycodone Allergy Intermediate HIVES Verified 03/09/20 08:43 Penicillins Allergy Intermediate Rash Verified 03/09/20 08:43 salmeterol Allergy Mild Rash Verified 03/09/20 08:43 cephalexin [From Keflex] Allergy Unknown Unknown Verified 03/09/20 08:43 pravastatin Allergy Unknown myalgias Verified 03/09/20 08:43 prednisone Allergy Unknown Unknown Verified 03/09/20 08:43 atorvastatin AdvReac Mild MUSCLE Verified 03/09/20 08:43 ACHES fluvastatin AdvReac Mild MUSCLE Verified 03/09/20 08:43 ACHES lisinopril AdvReac Mild Cough Verified 03/09/20 08:43 rosuvastatin AdvReac Mild MUSCLE Verified 03/09/20 08:43 ACHES Past Med/Surg History Medical History Abnormal EKG (Deleted) Acute renal insufficiency (Resolved) Acute systolic CHF (congestive heart failure) CAD (coronary artery disease) (Chronic) Cancer of lung (Resolved) 1998 LOBECTOMY. CHEMO AND RADIATION Cerebral aneurysm (Acute) Chronic osteoarthritis (Acute) Community acquired pneumonia Complicated migraine (Resolved) COPD (chronic obstructive pulmonary disease) (Chronic) Dyslipidemia (Chronic) H/O: lung cancer (Resolved) Hemiplegic migraine WAS THOUGHT TO HAVE STROKE BUT HEMIPLEGIC MIGRAINE AND NO PROBLEMS SINCE Hypertension (Chronic) Migraine (Acute) Hemiplegic Migraines Pancreatic cyst (Chronic) Pericarditis (Inactive) Pulmonary emphysema (Acute) Seroma after procedure Solitary pulmonary nodule (Acute) STEMI (ST elevation myocardial infarction) 4 STENT 2015 Unstable angina (Deleted) Vitamin D deficiency (Chronic) Surgical History History of arthroplasty of left shoulder History of cardiac catheterization (Chronic ~2016) 2016 [place] WITH [address] SABILLON LAST SEEN 06/23/18 History of colonoscopy History of excision of mass neck 2018 Hx of cataract surgery S/P appendectomy S/P excision of lipoma (Resolved) S/P lobectomy of lung LEFT S/P total knee arthroplasty LEFT Stented coronary artery (Deleted) Family History Brother Cancer Hypertension Sister Cancer Hypertension Diabetes Mother Hypertension Diabetes Unknown Coronary heart disease Father Coronary heart disease Daughter Breast cancer Social History Preferred Language: Kittitian Communication Ability: Effective Visual Impairment: No Limitations 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: Normal Project Development Coordinator Required: No Beliefs That Will Affect Care: None marital status: Current Living Situation: Spouse current occupational status: retired current occupation: retired Other Information That Helps Us Care for You: No Feels Safe at Home: Yes Safety Concerns: Feels Safe At This Time Smoking Status: Former smoker Tobacco Type: cigarettes ; Second Hand Exposure: No ; Tobacco Cessation Education Requested by Patient: No (quit smoking 25 yr ago) Hx Alcohol Use: Yes Alcohol type: beer and hard liquor Hx Substance Use: No Childhood Exposure to Second-Hand Smoke: Yes caffeine: Yes Dental Care, Regularly: No Physical Activity Frequency: Does not Exercise Seatbelt Use: always Sunscreen Use: Yes Review of Systems A total of 10 systems reviewed and were otherwise negative Physical Exam Vital Signs Vital Signs - 24 hr 03/09/20 07:27 03/09/20 07:33 03/09/20 08:14 Temperature 36.9 C Temperature Source Oral Pulse Rate 73 68 Pulse Rate [Apical] 76 Pulse Rate from SpO2 Sensor 69 Respiratory Rate 20 23 21 Respiratory Effort / Characteristics Non-Labored Spontaneous Non-Labored Spontaneous Respiratory Depth Normal Blood Pressure 132/80 132/80 Blood Pressure Mean 97 100 Pulse Oximetry 97 100 100 Oxygen Delivery Method Room Air Room Air Sepsis Recent Fever Within 48 Hours No Sepsis Action Taken by Nursing No Action Required 03/09/20 08:46 Temperature Temperature Source Pulse Rate 61 Pulse Rate [Apical] Pulse Rate from SpO2 Sensor 64 Respiratory Rate 20 Respiratory Effort / Characteristics Respiratory Depth Blood Pressure 109/64 Blood Pressure Mean 72 Pulse Oximetry 100 Oxygen Delivery Method Sepsis Recent Fever Within 48 Hours Sepsis Action Taken by Nursing VITAL SIGNS - Vital signs and nursing notes were reviewed. GENERAL - 84-year-old male appearing stated age who is in no acute distress. Communicates well with provider and answers questions appropriately. SKIN - Without rashes. HEAD - NC/AT. EYES - PERRL with EOMI bilaterally. Sclera anicteric. Palpebral conjunctiva pink and moist with no injection noted. EARS - No deformities of external structures noted on gross examination bilaterally. No pain elicited with palpation of the tragus bilaterally. External auditory canals without discharge or otorrhea. Tympanic membranes pearly bailon without retraction or bulging. No fluid or purulent material visualized behind the TM. Handle of malleus, umbo, cone of light, pars tensa/flaccid all easily visualized. NOSE - Midline and without cyanosis. No epistaxis or purulent drainage noted. Septum midline without deviation or septal hematoma noted. MOUTH/OROPHARYNX - Without perioral cyanosis. Buccal mucosa pink and moist and without leukoplakia. Tongue midline with equal elevation of palate bilaterally. No tonsillar hypertrophy, erythema, or exudates noted. dentition noted. NECK - Neck with FROM. Supple to palpation. lymphadenopathy noted. No nuchal rigidity. LUNGS - Chest wall symmetric without accessory muscle use, intercostals retractions, or central cyanosis. Normal vesicular breath sounds CTA B/L. No wheezes, rales, or rhonchi appreciated. CARDIAC - RRR with S1/S2. No murmur, rubs, or gallops appreciated. ABDOMEN - Abdominal contour without pulsations or visible masses. BS normoactive all four quadrants. No tenderness, palpable masses, hepatosplenomegaly, or ascites noted. EXTREMITIES - No clubbing or peripheral cyanosis. No pretibial edema present. +3/5 radial, posterior tibial, and dorsalis pedis pulses palpated throughout. +5/5 strength noted in UE/LE bilaterally. NEUROLOGIC - Cranial nerves II through XII grossly intact. Sensory intact to light touch throughout. Patellar reflexes +2/4. PSYCH - A&Ox3 and cooperates fully with examiner. Pt is very pleasant and interacts well with examiner. Course Administered Medications Aspir[facility]ab) [facility] [place] Stop: 04/08/20 09:01 Last Admin: 03/09/20 09:28 Dose: 81 mg Documented by: [id number] Carvedilol (Coreg) 3.125 mg PO BID [facility] Stop: 04/08/20 09:01 Last Admin: 03/09/20 09:28 Dose: 3.125 mg Documented by: [id number] Famotidine (Pepcid) 20 mg PO BID [facility] Stop: 04/08/20 11:02 Last Admin: 03/09/20 13:12 Dose: 20 mg Documented by: [id number] Fluticasone/Vilanterol (Breo Ellipta 100/25 Mcg Inh) 1 puffs INH DAILY@1430 [facility] Stop: 04/08/20 14:29 Last Admin: 03/09/20 13:15 Dose: 1 puffs Documented by: [id number] Heparin Sodium/Dextrose (Heparin Sodium/Dextrose) 25,000 units in 500 mls @ 29 mls/hr IV .[id number] [facility]; Protocol Stop: 04/08/20 09:01 Last Admin: 03/09/20 09:26 Dose: 1,450 units/hr, 29 mls/hr Documented by: [id number] Cosigned by: [id number] Ticagrelor (Brilinta) 90 mg PO BID [facility] Stop: 04/08/20 09:01 Last Admin: 03/09/20 09:28 Dose: 90 mg Documented by: [id number] Topiramate (Topamax) 25 mg PO QAM [facility] Stop: 04/08/20 11:02 Last Admin: 03/09/20 13:13 Dose: 25 mg Documented by: [id number] Valsartan (Diovan) 20 mg PO QAM [facility] Stop: 04/08/20 11:02 Last Admin: 03/09/20 13:14 Dose: 20 mg Documented by: [id number] Vitamin D (Vitamin D3) 1,000 units PO BID [facility] Stop: 04/08/20 11:02 Last Admin: 03/09/20 13:13 Dose: 1,000 units Documented by: [id number] Discontinued Medications Levalbuterol HCl (Xopenex Hfa) 4 puffs INH NOW STA Stop: 03/09/20 07:37 Last Admin: 03/09/20 08:10 Dose: 4 puffs Documented by: [id number] Nitroglycerin (Nitro-Bid 2%) 1 inch EXT NOW STA Stop: 03/09/20 07:37 Last Admin: 03/09/20 07:56 Dose: 1 inch Documented by: [id number] Medical Decision Making Differential Diagnosis Cardiac ischemia, aortic dissection, pulmonary embolism, pneumothorax, pneumonia, pericarditis, myocarditis, esophageal rupture, GERD, cholecystitis, pancreatitis, musculoskeletal, as well as other pathologies. Medical Records Attestation: I reviewed the patient's medical records. Home Medications Current Medication List: was personally reviewed by me Laboratory Data Attestation: I reviewed the patient's lab results. Result diagrams: 03/09/20 07:30 03/09/20 07:30 Lab Results 03/09/20 03/09/20 03/09/20 Range/Units 07:30 07:30 07:30 WBC 6.68 (4.8-10.8) K/uL RBC 4.50 L (4.7-6.1) M/uL Hgb 13.5 L (14.0-18.0) g/dL Hct 40.1 L (42-52) % MCV 89.1 (80-100) fL MCH 30.0 (25-34) pg MCHC 33.7 (32-36) g/dL RDW Std Deviation 49.0 H (36.4-46.3) fL RDW Coeff of Falguni 15.0 H (11.5-14.5) % Plt Count 155 (130-400) K/uL MPV 10.3 (7.4-10.4) fL Immature Gran % (Auto) 1.0 % Neut % (Auto) 70.8 % Lymph % (Auto) 15.1 % [place] % (Auto) 11.2 % Eos % (Auto) 1.5 % Baso % (Auto) 0.4 % Immature Gran # (Auto) 0.07 H (0.00-0.02) K/uL Neut # (Auto) 4.72 (1.4-6.5) K/uL Lymph # (Auto) 1.01 L (1.2-3.4) K/uL [place] # (Auto) 0.75 H (0.11-0.59) K/uL Eos # (Auto) 0.10 (0-0.5) K/uL Baso # (Auto) 0.03 (0-0.2) K/uL PT 11.0 (9.0-12.0) Seconds INR 1.0 (0.9-1.1) APTT 27.1 (21.0-31.0) Seconds PTT Ratio 1.0 Sodium 142 (136-145) mmol/L Potassium 4.2 (3.5-5.1) mmol/L Chloride 112 H (98-107) mmol/L Carbon Dioxide 26 (21-32) mmol/L Anion Gap 4.0 (3-11) BUN 19 H (7-18) mg/dl Creatinine 1.41 H (0.6-1.4) mg/dl Est Cr Clr Drug Dosing 43.6 ml/min Est GFR ( Amer) 53.0 Est GFR (Non-Af Amer) 45.7 BUN/Creatinine Ratio 13.1 (10-20) Glucose 94 (70-99) mg/dl Calcium 8.6 (8.5-10.1) mg/dl Total Bilirubin 1.1 H (0.2-1) mg/dl AST 11 L (15-37) U/L ALT 17 (12-78) U/L Alkaline Phosphatase 56 (45-117) U/L Total Creatine Kinase 50 (39-308) U/L CK-MB (CK-2) 1.2 (0.5-3.6) ng/ml CK/CKMB % Calc 2.4 (0-3.0) Troponin I < 0.015 (0-0.045) ng/ml Total Protein 6.4 (6.4-8.2) gm/dl Albumin 3.2 L (3.4-5.0) gm/dl Globulin 3.2 (2.5-4.0) gm/dl Albumin/Globulin Ratio 1.0 (0.9-2) Lipase 128 (73-393) U/L Imaging Data Radiologist's Impression: [facility] [place] [place] [phone] XRay Report Patient: ESTUARDO PUGH Admit Date: 03/09/20 MR#: [id number] Address1: [address] [place] [address] Acct ID:[id number] Address2: Date: 1935 [facility] Zip: [place] [address] Age: 84 Location: ED Sex: M Room/Bed: Att Phy: Diagnosis: CHEST PAIN Angela Phy: Loan Zafar PA-C Service Date: 03/09/20 Fam Phy: Interpreting Phy: Jelani A Jeanmenne MD Admit Phy: Ordering Phy: Adi Andujar MD cc: ~ XR chest 1V portable HISTORY: Atypical Chest Pain COMPARISON: Chest 10/27/2019. FINDINGS: Improved aeration within the left lung with near complete resolution of the left midlung zone airspace opacities. Left pleural thickening, volume lo ss, and postoperative changes persist. No pneumothorax. No pleural effusions. Mild emphysema. The heart is stable in size. No evidence for pulmonary edema. IMPRESSION: Improved aeration within the left lung with near complete resolution of the mid lung airspace opacities. Volume loss/postoperative change within the left hemithorax persists. ACT 112: Negative or not required by law. Electronically signed by: Jelani Hitchcock M.D. 03/09/2020 8:13 AM Dictated: 03/09/20808 Transcribed: 03/09/20808 ECG Data Attestation: I personally reviewed and interpreted this ECG as follows: Indication: chest pain Rate (beats per minute): 68 Rhythm: normal sinus Findings: + T-wave inversion (Anterior) and + left axis deviation; no ST depression and no ST elevation Comparison ECG Date: from (10/29/2019) Change: the following changes noted (New t wave inversions in the anterior leads, ST elevation no longer present in anterior leads) MDM Narrative This is an 84-year-old male who presents with chest pain. 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 He has a normal troponin however his EKG has new T wave inversions. For this reason he was discussed with the hospitalist service who did agree to admit the patient. Patient is in agreement with the treatment plan. Impression & Plan Chest pain Discharge Plan Visit Data *Final* Discharge Date/Time: 03/09/20 10:02 Chief Complaint: Chest Pain ED Provider: Adi Andujar Discharge Problem: Chest pain Patient Disposition: Admitted As Inpatient Discharge Instructions Interventions: ED Discharge Assessment Last Done: 03/09/20 10:02
[2020-03-09 07:53] LABS: Partial Thromboplastin Time 27.1 Seconds (21.0-31.0)
[2020-03-09 07:58] LABS: Alanine Aminotransferase 17 U/L (12-78); Albumin Level 3.2 gm/dl (3.4-5.0); Aspartate Aminotransferase 11 U/L (15-37); BUN Creatinine Ratio 13.1 (10-20); Blood Urea Nitrogen 19 mg/dl (7-18); Calcium 8.6 mg/dl (8.5-10.1); Carbon Dioxide 26 mmol/L (21-32); Chloride 112 mmol/L (98-107); Creatinine Clr Calc Pharmacy 43.6 ml/min; Est GFR (Non-African American) 45.7; Glucose 94 mg/dl (70-99); Lipase 128 U/L (73-393); Potassium 4.2 mmol/L (3.5-5.1); Sodium 142 mmol/L (136-145)
[2020-03-09 08:03] LABS: Alkaline Phosphatase 56 U/L (45-117); Bilirubin,Total 1.1 mg/dl (0.2-1); Creatine Kinase 50 U/L (39-308); Creatine Kinase MB 1.2 ng/ml (0.5-3.6); Globulin 3.2 gm/dl (2.5-4.0); Total Protein 6.4 gm/dl (6.4-8.2); Troponin I < 0.015 ng/ml (0-0.045)
--- NOTE | 2020-03-09 08:14 | XRay Report ---
XR chest 1V portable HISTORY: Atypical Chest Pain COMPARISON: Chest 10/27/2019. FINDINGS: Improved aeration within the left lung with near complete resolution of the left midlung zo ne airspace opacities. Left pleural thickening, volume loss, and postoperative changes persist. No pn eumothorax. No pleural effusions. Mild emphysema. The heart is stable in size. No evidence for pulmon lakisha edema. IMPRESSION: Improved aeration within the left lung with near complete resolution of the mid lung airspace opaciti es. Volume loss/postoperative change within the left hemithorax persists. ACT 112: Negative or not required by law. Electronically signed by: Jelani Hitchcock M.D. 03/09/2020 8:13 AM
[2020-03-09] MEDS ORDERED: Heparin IV Standard *NO* Bolus STA (09:02)
[2020-03-09] MEDS ORDERED: HEPARIN SODIUM/DEXTROSE 25,000 UNITS/500 ML BAG IV SCH (09:02)
--- NOTE | 2020-03-09 09:11 | History & Physical Report ---
Date of Service March 09, 2020 Assessment & Plan (1) Chest pain: Similar to his prior chest pain when he had a heart attack. EKG shows TWIs in I and aVL, but are chronic. First troponin negative (about 3 hours after chest pain started). - Cardiology consulted in the ED - Given return of chest pain (up to 2/10 at interview) -> Give his home DAPT, beta-gene. Start heparin gtt. - Trend troponins and EKGs - Limited echo for EF and wall motion (2) CAD (coronary artery disease): STEMI in 2016 with [address] Sahu. - Continue home CAD meds: DAPT, beta-gene, ARB - Not on statin for myalgias - Hold verapamil until seen by cardiology (3) Hypertension: BP is 130/80 in the ED. - Continue meds as above (4) COPD (chronic obstructive pulmonary disease): Mild wheeze on exam and reports transient shortness of breath. - Continue home inhalers - DuoNebs PRN (5) Multifocal atrial tachycardia: None noted so far. - Monitor (6) CKD (chronic kidney disease) stage 3, GFR 30-59 ml/min: Baseline Cr is 1.4 with eGFR ~45. - At baseline on presentation - Monitor; void nephrotoxins as able (7) DVT prophylaxis: On heparin gtt at present. History of Present Illness Primary Care Provider: Loan Zafar PA-C 84yo M w/ hx of CAD who presents with chest pain. Chest pain began around 4:30am. The patient was up and watching TV. Describes the pain as a 10/10 pressure under the left sternum without radiation to the jaw or arm. Associated with some shortness of breath. No dizziness or lightheadedness. Took 2 nitro at 5am and 5:05am without relief. Daughter called EMS. In the ambulance, they gave him some fentynl which improved the pain. He reports it has come back up to a 2/10 at present. Some transient shortness of breath at times in the ED. Allergies Allergy/AdvReac Type Severity Reaction Status Date / Time Cephalosporins Allergy Intermediate Rash Verified 03/09/20 08:43 fluticasone Allergy Intermediate Rash Verified 03/09/20 08:43 Iodinated Contrast Media Allergy Intermediate Hives Verified 03/09/20 08:43 oxycodone Allergy Intermediate HIVES Verified 03/09/20 08:43 Penicillins Allergy Intermediate Rash Verified 03/09/20 08:43 salmeterol Allergy Mild Rash Verified 03/09/20 08:43 cephalexin [From Keflex] Allergy Unknown Unknown Verified 03/09/20 08:43 pravastatin Allergy Unknown myalgias Verified 03/09/20 08:43 prednisone Allergy Unknown Unknown Verified 03/09/20 08:43 atorvastatin AdvReac Mild MUSCLE Verified 03/09/20 08:43 ACHES fluvastatin AdvReac Mild MUSCLE Verified 03/09/20 08:43 ACHES lisinopril AdvReac Mild Cough Verified 03/09/20 08:43 rosuvastatin AdvReac Mild MUSCLE Verified 03/09/20 08:43 ACHES Home Medications Home Medications Medication Instructions Recorded Confirmed Type albuterol sulfate [Ventolin HFA] 2 puff INHALATION QID PRN 06/25/18 03/09/20 History cholecalciferol (vitamin D3) 1,000 unit PO BID 06/25/18 03/09/20 History [Vitamin D3] nitroglycerin [Nitrostat] 1 tab SUBLINGUAL UD PRN 06/25/18 03/09/20 History topiramate [Topamax] 25 mg PO QAM 09/19/19 03/09/20 History verapamil 120 mg PO QAM 09/19/19 03/09/20 History aspirin [Ecotrin Low Strength] 81 mg PO QAM #30 tab 09/27/19 03/09/20 Rx Brilinta 90 mg PO BID 10/27/19 03/09/20 History carvedilol [Coreg] 3.125 mg PO BID 10/27/19 03/09/20 History famotidine 20 mg tablet 20 mg PO BID 11/02/19 03/09/20 History colchicine 0.6 mg PO QAM 03/09/20 03/09/20 History fluticasone furoate-vilanterol 1 inh INHALATION DAILY@1430 03/09/20 03/09/20 History [Breo Ellipta] valsartan 20 mg PO QAM 03/09/20 03/09/20 History Past Med/Surg History Medical History Abnormal EKG (Deleted) Acute renal insufficiency (Resolved) Acute systolic CHF (congestive heart failure) CAD (coronary artery disease) (Chronic) Cancer of lung (Resolved) 1998 LOBECTOMY. CHEMO AND RADIATION Cerebral aneurysm (Acute) Chronic osteoarthritis (Acute) Community acquired pneumonia Complicated migraine (Resolved) COPD (chronic obstructive pulmonary disease) (Chronic) Dyslipidemia (Chronic) H/O: lung cancer (Resolved) Hemiplegic migraine WAS THOUGHT TO HAVE STROKE BUT HEMIPLEGIC MIGRAINE AND NO PROBLEMS SINCE Hypertension (Chronic) Migraine (Acute) Hemiplegic Migraines Pancreatic cyst (Chronic) Pericarditis (Inactive) Pulmonary emphysema (Acute) Seroma after procedure Solitary pulmonary nodule (Acute) STEMI (ST elevation myocardial infarction) 4 STENT 2016 Unstable angina (Deleted) Vitamin D deficiency (Chronic) Surgical History History of arthroplasty of left shoulder History of cardiac catheterization (Chronic ~2016) 2016 [place] WITH [address] SAHU LAST SEEN 06/23/18 History of colonoscopy History of excision of mass neck 2018 Hx of cataract surgery S/P appendectomy S/P excision of lipoma (Resolved) S/P lobectomy of lung LEFT S/P total knee arthroplasty LEFT Stented coronary artery (Deleted) Family History Brother Cancer Hypertension Sister Cancer Hypertension Diabetes Mother Hypertension Diabetes Unknown Coronary heart disease Father Coronary heart disease Daughter Breast cancer Social History Preferred Language: Spanish Communication Ability: Effective Visual Impairment: No Limitations 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: Normal Air Intercept Controller Required: No Beliefs That Will Affect Care: None marital status: Current Living Situation: Spouse current occupational status: retired current occupation: retired Other Information That Helps Us Care for You: No Feels Safe at Home: Yes Safety Concerns: Feels Safe At This Time Smoking Status: Former smoker Tobacco Type: cigarettes ; Second Hand Exposure: No ; Tobacco Cessation Education Requested by Patient: No (quit smoking 25 yr ago) Hx Alcohol Use: Yes Alcohol type: beer and hard liquor Hx Substance Use: No Childhood Exposure to Second-Hand Smoke: Yes caffeine: Yes Dental Care, Regularly: No Physical Activity Frequency: Does not Exercise Seatbelt Use: always Sunscreen Use: Yes Review of Systems Review of Systems: All systems reviewed & are unremarkable except as noted in HPI & below Physical Exam Constitutional: WD/WN, vitals as above Eyes: EOM intact bilaterally; no conjunctival abnormality ENMT: external ear and nose normal, oropharynx normal Neck: trachea midline, no thyromegaly normal visual inspection Respiratory: normal respiratory effort, lungs clear to auscultation no respiratory distress Cardiovascular: RRR, no murmur, no edema Gastrointestinal (Abdomen): Inspection/Auscultation: abdomen normal to inspection; abdomen not distended Musculoskeletal: no cyanosis or clubbing, extremities motor strength 5/5 Skin: no rashes, warm and dry Neurologic: moves all extremities and awake Psychiatric: Orientation: alert, oriented to person and cooperative Results & Data Results & Data ([facility]) Vital Signs (Past 12 Hours) Vital Signs Temp Pulse Pulse Resp BP Pulse Ox 03/09/20 08:14 76 21 100 03/09/20 07:33 68 23 132/80 100 03/09/20 07:27 36.9 C 73 20 132/80 97 Code Status & VTE Plan VTE Prophylaxis Plan VTE Prophylaxis will be ordered: Yes PG Care Time/CCT Total # of Minutes Spent Total Time Spent with Patient: Total time spent is greater than 50% in coordinat ion of care (as documented) at patient's floor/unit and/or counseling patient: Coding Level of Care Code 03220 OBS Care - Level 3 Diagnoses Chest pain R07.9 CAD (coronary artery disease) I25.10 Hypertension I10 Hypertension type: essential hypertension COPD (chronic obstructive pulmonary disease) J43.9 COPD type: emphysema Emphysema type: unspecified Multifocal atrial tachycardia I47.1 CKD (chronic kidney disease) stage 3, GFR 30-59 ml/min N18.3 DVT prophylaxis Z29.9 (1) 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 (2) Hypertension Hypertension type: essential hypertension Qualified Code(s): I10 - Essential (primary) hypertension
[2020-03-09] MEDS: ASPIRIN 81 MG ECTAB PO SCH (09:28)
[2020-03-09] MEDS: TICAGRELOR 90 MG TAB PO SCH ×2 (09:28→21:03)
[2020-03-09] MEDS: carvediloL 3.125 MG TAB PO SCH ×2 (09:28→19:49)
[2020-03-09] MEDS ORDERED: ONDANSETRON INJ 2 MG/ML 2 ML VIAL IV PRN (11:03)
[2020-03-09] MEDS ORDERED: ACETAMINOPHEN 325 MG TAB PO PRN (11:03)
[2020-03-09] MEDS ORDERED: ALBUTEROL HFA 8 GM INHALER INH PRN (11:03)
[2020-03-09] MEDS ORDERED: Nursing to Pharmacy Communication ONE (12:58)
[2020-03-09] MEDS: FAMOTIDINE 20 MG TAB PO SCH ×2 (13:12→19:48)
[2020-03-09] MEDS: TOPIRAMATE 25 MG TAB PO SCH (13:13)
[2020-03-09] MEDS: CHOLECALCIFEROL 1,000 UNITS 25 MCG TAB PO SCH ×2 (13:13→19:49)
[2020-03-09] MEDS: VALSARTAN 80 MG TAB PO SCH (13:14)
[2020-03-09] MEDS ORDERED: FLUTICASONE/VILANTEROL 100/25MCG 14 PUFFS/INHALER INH SCH (14:30)
--- NOTE | 2020-03-09 14:33 | Cardiology Consultation ---
Date of Consultation March 09, 2020 Assessment & Plan (1) Chest pain: Agnieszka Singleton is a 84y/o M with PMH significant for severe multi-vessel Coronary Artery disease s/p multiple stents in LAD and D1; who presented to the hospital for evaluation following new onset sharp substernal chest pain Chest pain: - with patient's extensive coronary artery disease history, and recent stent thrombosis in 09/2019 s/p POBA to D1; suspicion for coronary process is elevated - patient attempted to utilize Nitroglycerin x2 5 minutes apart prior to presentation with no relief of symptoms, received additional dose from EMS with no relief of symptoms; ultimately had relief of pain following administration of Fentanyl by EMS - Echo today no significant changes from 02/17/2020 - EKG with concerns of new T-wave inversions in V1-V4 as compared to 10/29/2019 - Troponin undetectable x2 since admission, repeat set for 1899 - if troponin continues to remain undetectable, higher consideration towards non-cardiac sources of his chest pain should be considered at that time; would expect upward trend of Troponin, if new or re-stenosis deemed source of symptoms - continue home regimen of Brilinta, ASA, Coreg, Valsartan, and Verapamil (2) Stented coronary artery: (3) Ischemic cardiomyopathy: (4) COPD (chronic obstructive pulmonary disease): (5) Hypertension: Supervising Physician Co-Signing Physician Notes Agree with assessment and plan as outlined by Dr. Delaney. Briefly, Mr. Singleton is a very pleasant 84 year old man with a complex CAD history well known to me from the outpatient setting and prior hospitalizations. He is post anterior stemi secondary to very late stent thrombosis in 09/2019 treated with POBA into diagonal (LAD chronically occluded). Post AK course complicated by pericarditis treated briefly with colchicine which patient did not tolerate. Recently has been doing well, participating with cardiac rehab. This morning awoke with 10/10 chest pain bringing him to tears. On arrival here CP improved, ECG sinus with more pronounced anterior T wave inversions. Has has mild 2/10 chest pain during the remainder of the day but looks comfortable. Troponins x2 negative. Repeat echo showed old anterior/apical wall motion abnormality without changes. No pericardial effusion. On exam well-perfused, regular rhythm without systemic or pulmonary congestion. Mild reproducible pain with palpation over left chest wall. At this point low suspicion for repeat stent thrombosis or recurrent ACS in the setting of prolonged chest pain without troponin elevation. Pain unlikely to represent recurrent pericarditis. Recommend continuing to monitor on telemetry overnight, on-going evaluation for non-cardiac chest pain. If stable overnight, additional troponin negative OK w ith discharge tomorrow from a cardiac standpoint. History of Present Illness Attending Physician: Leonard Loredo MD History of Present Illness Agnieszka Singleton is a 84y/o M with PMH significant for severe multi-vessel Coronary Artery disease s/p multiple stents in LAD and D1; who presented to the hospital for evaluation following new onset sharp substernal chest pain starting the morning upon waking. This pain started about 4am, and he states this pain was of a higher severity and intensity than when he was previously admitted for heart attacks in the past. Took two nitroglycerin tablets 5 minutes apart with no relief of the pain, in transportation by EMS to the hospital he received an additional dose of nitroglycerin without relief of his symptoms, however pain was eliminated following receiving Fentanyl by EMS. Currently denies continued chest pain/discomfort, no shortness of breath, diaphoresis, nausea, vomiting, peripheral edema, and palpitations. Hemodynamically stable on presentation. Previously was admitted with similar chest pain symptoms in September 2019, during that admission he had a cardiac catheterization that demonstrated stent thrombosis of D1, and subsequently received POBA to D1. by Dr. Myers. Allergies Allergy/AdvReac Type Severity Reaction Status Date / Time Cephalosporins Allergy Intermediate Rash Verified 03/09/20 08:43 fluticasone Allergy Intermediate Rash Verified 03/09/20 08:43 Iodinated Contrast Media Allergy Intermediate Hives Verified 03/09/20 08:43 oxycodone Allergy Intermediate HIVES Verified 03/09/20 08:43 Penicillins Allergy Intermediate Rash Verified 03/09/20 08:43 salmeterol Allergy Mild Rash Verified 03/09/20 08:43 cephalexin [From Keflex] Allergy Unknown Unknown Verified 03/09/20 08:43 pravastatin Allergy Unknown myalgias Verified 03/09/20 08:43 prednisone Allergy Unknown Unknown Verified 03/09/20 08:43 atorvastatin AdvReac Mild MUSCLE Verified 03/09/20 08:43 ACHES fluvastatin AdvReac Mild MUSCLE Verified 03/09/20 08:43 ACHES lisinopril AdvReac Mild Cough Verified 03/09/20 08:43 rosuvastatin AdvReac Mild MUSCLE Verified 03/09/20 08:43 ACHES Home Medications Home Medications Medication Instructions Recorded Confirmed Type albuterol sulfate [Ventolin HFA] 2 puff INHALATION QID PRN 06/25/18 03/09/20 History cholecalciferol (vitamin D3) 1,000 unit PO BID 06/25/18 03/09/20 History [Vitamin D3] nitroglycerin [Nitrostat] 1 tab SUBLINGUAL UD PRN 06/25/18 03/09/20 History topiramate [Topamax] 25 mg PO QAM 09/19/19 03/09/20 History verapamil 120 mg PO QAM 09/19/19 03/09/20 History aspirin [Ecotrin Low Strength] 81 mg PO QAM #30 tab 09/27/19 03/09/20 Rx Brilinta 90 mg PO BID 10/27/19 03/09/20 History carvedilol [Coreg] 3.125 mg PO BID 10/27/19 03/09/20 History famotidine 20 mg tablet 20 mg PO BID 11/02/19 03/09/20 History colchicine 0.6 mg PO QAM 03/09/20 03/09/20 History fluticasone furoate-vilanterol 1 inh INHALATION DAILY@1430 03/09/20 03/09/20 History [Breo Ellipta] valsartan 20 mg PO QAM 03/09/20 03/09/20 History Patient History Medical History Abnormal EKG (Deleted) Acute renal insufficiency (Resolved) Acute systolic CHF (congestive heart failure) CAD (coronary artery disease) (Chronic) Cancer of lung (Resolved) 1998 LOBECTOMY. CHEMO AND RADIATION Cerebral aneurysm (Acute) Chronic osteoarthritis (Acute) Community acquired pneumonia Complicated migraine (Resolved) COPD (chronic obstructive pulmonary disease) (Chronic) Dyslipidemia (Chronic) H/O: lung cancer (Resolved) Hemiplegic migraine WAS THOUGHT TO HAVE STROKE BUT HEMIPLEGIC MIGRAINE AND NO PROBLEMS SINCE Hypertension (Chronic) Migraine (Acute) Hemiplegic Migraines Pancreatic cyst (Chronic) Pericarditis (Inactive) Pulmonary emphysema (Acute) Seroma after procedure Solitary pulmonary nodule (Acute) STEMI (ST elevation myocardial infarction) 4 STENT 2015 Unstable angina (Deleted) Vitamin D deficiency (Chronic) Surgical History History of arthroplasty of left shoulder History of cardiac catheterization (Chronic ~2016) 2016 AK WITH [address] SABILLON LAST SEEN 06/23/18 History of colonoscopy History of excision of mass neck 2018 Hx of cataract surgery S/P appendectomy S/P excision of lipoma (Resolved) S/P lobectomy of lung LEFT S/P total knee arthroplasty LEFT Stented coronary artery (Deleted) Family History Brother Cancer Hypertension Sister Cancer Hypertension Diabetes Mother Hypertension Diabetes Unknown Coronary heart disease Father Coronary heart disease Daughter Breast cancer Social History Preferred Language: Sinhala Communication Ability: Effective Visual Impairment: No Limitations 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: Normal [employer] Required: No Beliefs That Will Affect Care: None marital status: Current Living Situation: Spouse current occupational status: retired current occupation: retired Other Information That Helps Us Care for You: No Feels Safe at Home: Yes Safety Concerns: Feels Safe At This Time Smoking Status: Former smoker Tobacco Type: cigarettes ; Second Hand Exposure: No ; Tobacco Cessation Education Requested by Patient: No (quit smoking 25 yr ago) Hx Alcohol Use: Yes Alcohol type: beer and hard liquor Hx Substance Use: No Childhood Exposure to Second-Hand Smoke: Yes caffeine: Yes Dental Care, Regularly: No Physical Activity Frequency: Does not Exercise Seatbelt Use: always Sunscreen Use: Yes Review of Systems Review of Systems: All systems reviewed & are unremarkable except as noted in HPI & below Physical Exam Constitutional: WD/WN, vitals as above Eyes: PERRL, conjunctivae normal, anicteric sclerae Respiratory: normal respiratory effort; no labored breathing Auscultation: + wheezes (b/l whole field); no crackles and no rales Cardiovascular: Rate/Rhythm: regular rate and regular rhythm Heart Sounds: no gallop, no murmur and no cardiac rub Vessels: no JVD Extremities: no pedal edema Gastrointestinal (Abdomen): Inspection/Auscultation: abdomen normal to inspection and normal bowel sounds; abdomen not distended Percussion/P alpation: + abdomen tender (epigastric) Skin: no rashes, warm and dry Lymphatic: no cervical or axillary lymphadenopathy Results & Data ([facility]) Vital Signs (Past 12 Hours) Vital Signs Temp Pulse Pulse Resp BP BP Pulse Ox 03/09/20 10:23 36.3 C L 73 16 130/75 96 03/09/20 10:02 61 18 109/64 97 03/09/20 08:46 61 20 109/64 100 03/09/20 08:14 76 21 100 03/09/20 07:33 68 23 132/80 100 03/09/20 07:27 36.9 C 73 20 132/80 97 Laboratory Results 03/09/20 03/09/20 03/09/20 Range/Units 12:50 07:30 07:30 WBC (4.8-10.8) K/uL RBC (4.7-6.1) M/uL Hgb (14.0-18.0) g/dL Hct (42-52) % MCV (80-100) fL MCH (25-34) pg MCHC (32-36) g/dL RDW Std Deviation (36.4-46.3) fL RDW Coeff of Falguni (11.5-14.5) % Plt Count (130-400) K/uL MPV (7.4-10.4) fL Immature Gran % (Auto) % Neut % (Auto) % Lymph % (Auto) % Latimer % (Auto) % Eos % (Auto) % Baso % (Auto) % Immature Gran # (Auto) (0.00-0.02) K/uL Neut # (Auto) (1.4-6.5) K/uL Lymph # (Auto) (1.2-3.4) K/uL Latimer # (Auto) (0.11-0.59) K/uL Eos # (Auto) (0-0.5) K/uL Baso # (Auto) (0-0.2) K/uL PT 11.0 (9.0-12.0) Seconds INR 1.0 (0.9-1.1) APTT 27.1 (21.0-31.0) Seconds PTT Ratio 1.0 Sodium 142 (136-145) mmol/L Potassium 4.2 (3.5-5.1) mmol/L Chloride 112 H (98-107) mmol/L Carbon Dioxide 26 (21-32) mmol/L Anion Gap 4.0 (3-11) BUN 19 H (7-18) mg/dl Creatinine 1.41 H (0.6-1.4) mg/dl Est Cr Clr Drug Dosing 43.6 ml/min Est GFR ( Amer) 53.0 Est GFR (Non-Af Amer) 45.7 BUN/Creatinine Ratio 13.1 (10-20) Glucose 94 (70-99) mg/dl Calcium 8.6 (8.5-10.1) mg/dl Total Bilirubin 1.1 H (0.2-1) mg/dl AST 11 L (15-37) U/L ALT 17 (12-78) U/L Alkaline Phosphatase 56 (45-117) U/L Total Creatine Kinase 50 (39-308) U/L CK-MB (CK-2) 1.2 (0.5-3.6) ng/ml CK/CKMB % Calc 2.4 (0-3.0) Troponin I < 0.015 < 0.015 (0-0.045) ng/ml Total Protein 6.4 (6.4-8.2) gm/dl Albumin 3.2 L (3.4-5.0) gm/dl Globulin 3.2 (2.5-4.0) gm/dl Albumin/Globulin Ratio 1.0 (0.9-2) Lipase 128 (73-393) U/L 03/09/20 Range/Units 07:30 WBC 6.68 (4.8-10.8) K/uL RBC 4.50 L (4.7-6.1) M/uL Hgb 13.5 L (14.0-18.0) g/dL Hct 40.1 L (42-52) % MCV 89.1 (80-100) fL MCH 30.0 (25-34) pg MCHC 33.7 (32-36) g/dL RDW Std Deviation 49.0 H (36.4-46.3) fL RDW Coeff of Falguni 15.0 H (11.5-14.5) % Plt Count 155 (130-400) K/uL MPV 10.3 (7.4-10.4) fL Immature Gran % (Auto) 1.0 % Neut % (Auto) 70.8 % Lymph % (Auto) 15.1 % Latimer % (Auto) 11.2 % Eos % (Auto) 1.5 % Baso % (Auto) 0.4 % Immature Gran # (Auto) 0.07 H (0.00-0.02) K/uL Neut # (Auto) 4.72 (1.4-6.5) K/uL Lymph # (Auto) 1.01 L (1.2-3.4) K/uL Latimer # (Auto) 0.75 H (0.11-0.59) K/uL Eos # (Auto) 0.10 (0-0.5) K/uL Baso # (Auto) 0.03 (0-0.2) K/uL PT (9.0-12.0) Seconds INR (0.9-1.1) APTT (21.0-31.0) Seconds PTT Ratio Sodium (136-145) mmol/L Potassium (3.5-5.1) mmol/L Chloride (98-107) mmol/L Carbon Dioxide (21-32) mmol/L Anion Gap (3-11) BUN (7-18) mg/dl Creatinine (0.6-1.4) mg/dl Est Cr Clr Drug Dosing ml/min Est GFR ( Amer) Est GFR (Non-Af Amer) BUN/Creatinine Ratio (10-20) Glucose (70-99) mg/dl Calcium (8.5-10.1) mg/dl Total Bilirubin (0.2-1) mg/dl AST (15-37) U/L ALT (12-78) U/L Alkaline Phosphatase (45-117) U/L Total Creatine Kinase (39-308) U/L CK-MB (CK-2) (0.5-3.6) ng/ml CK/CKMB % Calc (0-3.0) Troponin I (0-0.045) ng/ml Total Protein (6.4-8.2) gm/dl Albumin (3.4-5.0) gm/dl Globulin (2.5-4.0) gm/dl Albumin/Globulin Ratio (0.9-2) Lipase (73-393) U/L Medications Administered Current Inpatient Medications Acetaminophen (Tylenol) 650 mg PO Q4H PRN PRN Reason: pain/fever Stop: 04/08/20 11:02 Albuterol (Ventolin Hfa) 2 puffs INH QID PRN PRN Reason: Shortness Of Breath Stop: 04/08/20 11:02 Aspirin (Ecotrin Ectab) 81 mg PO QAM [facility] Stop: 04/08/20 09:01 Last Admin: 03/09/20 09:28 Dose: 81 mg Documented by: Carvedilol (Coreg) 3.125 mg PO BID [facility] Stop: 04/08/20 09:01 Last Admin: 03/09/20 09:28 Dose: 3.125 mg Documented by: Famotidine (Pepcid) 20 mg PO BID [facility] Stop: 04/08/20 11:02 Last Admin: 03/09/20 13:12 Dose: 20 mg Documented by: Fluticasone/Vilanterol (Breo Ellipta 100/25 Mcg Inh) 1 puffs INH DAILY@1430 [facility] Stop: 04/08/20 14:29 Last Admin: 03/09/20 13:15 Dose: 1 puffs Documented by: Heparin Sodium/Dextrose (Heparin Sodium/Dextrose) 25,000 units in 500 mls @ 29 mls/hr IV .[id number] [facility]; Protocol Stop: 04/08/20 09:01 Last Admin: 03/09/20 09:26 Dose: 1,450 units/hr, 29 mls/hr Documented by: Ondansetron HCl (Zofran) 4 mg IV Q4H PRN PRN Reason: Nausea Stop: 04/08/20 11:02 Ticagrelor (Brilinta) 90 mg PO BID [facility] Stop: 04/08/20 09:01 Last Admin: 03/09/20 09:28 Dose: 90 mg Documented by: [facility] ([facility]ax) [facility] [place]: 04/08/20 11:02 Last Admin: 03/09/20 13:13 Dose: 25 mg Documented by: Valsartan (Diovan) 20 mg PO QAM [facility] Stop: 04/08/20 11:02 Last Admin: 03/09/20 13:14 Dose: 20 mg Documented by: Vitamin D (Vitamin D3) 1,000 units PO BID [facility] Stop: 04/08/20 11:02 Last Admin: 03/09/20 13:13 Dose: 1,000 units Documented by: PG Care Time/CCT Total # of Minutes Spent Total Time Spent with Patient: Total time spent is greater than 50% in coordination of care (as documented) at patient's floor/unit and/or counseling patient: Coding Level of Care Code 59238 Initial Inpt Care Lvl 3 Diagnoses Chest pain R07.9 Stented coronary artery Z95.5 Ischemic cardiomyopathy I25.5 COPD (chronic obstructive pulmonary disease) J43.9 COPD type: emphysema Emphysema type: unspecified Hypertension I10 Hypertension type: essential hypertension Resident Activity Tracking Resident Involvement: Resident Care Provided Care Provided: Adult Hospital Medicine (Cardiology) (1) 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 (2) Hypertension Hypertension type: essential hypertension Qualified Code(s): I10 - Essential (primary) hypertension
--- NOTE | 2020-03-09 14:47 | XCELERA ---
[id number]
--- NOTE | 2020-03-09 16:57 | Electrocardiogram Report ---
Test Reason : Blood Pressure : / mmHG Vent. Rate : 068 BPM Atrial Rate : 068 BPM P-R Int : 146 ms QRS Dur : 126 ms QT Int : 416 ms P-R-T Axes : 007 -52 120 degrees QTc Int : 442 ms Normal sinus rhythm Left axis deviation Non-specific intra-ventricular conduction block T wave abnormality, consider anterolateral ischemia Abnormal ECG When compared with ECG of 29-OCT-2019 07:33, T wave inversion now evident in Anterior leads Confirmed by Donald Miranda ([id number]) on 03/09/2020 4:57:34 PM Referred By: REFERRED SELF Confirmed By:Donald Miranda
--- NOTE | 2020-03-09 17:12 | Electrocardiogram Report ---
Test Reason : Blood Pressure : / mmHG Vent. Rate : 071 BPM Atrial Rate : 071 BPM P-R Int : 192 ms QRS Dur : 128 ms QT Int : 426 ms P-R-T Axes : 069 -63 106 degrees QTc Int : 462 ms Normal sinus rhythm Left axis deviation Non-specific intra-ventricular conduction block Marked T wave abnormality consider anterolateral ischemia Abnormal ECG When compared with ECG of 09-MAR-2020 07:29, (unconfirmed) No significant change was found Confirmed by Donald Miranda ([id number]) on 03/09/2020 5:12:44 PM Referred By: REFERRED SELF Confirmed By:Donald Miranda
[2020-03-09] MEDS ORDERED: DICLOFENAC SOD 1% GEL 100 GM TUBE EXT PRN (17:17)
[2020-03-10 05:56] LABS: Hemoglobin 15.9 g/dL (14.0-18.0); Mean Corpuscular Hemoglobin 30.1 pg (25-34); Mean Corpuscular Hgb Conc 33.8 g/dL (32-36); Mean Corpuscular Volume 88.8 fL (80-100); Mean Platelet Volume 11.2 fL (7.4-10.4); Platelet Count 145 K/uL (130-400); RDW Coefficient of Variation 14.9 % (11.5-14.5); RDW Standard Deviation 48.2 fL (36.4-46.3); Red Blood Count 5.29 M/uL (4.7-6.1); White Blood Count 6.31 K/uL (4.8-10.8)
[2020-03-10 06:31] LABS: BUN Creatinine Ratio 14.1 (10-20); Blood Urea Nitrogen 20 mg/dl (7-18); Calcium 9.1 mg/dl (8.5-10.1); Carbon Dioxide 26 mmol/L (21-32); Chloride 111 mmol/L (98-107); Creatinine Clr Calc Pharmacy 44.2 ml/min; Est GFR (African American) 53.9; Est GFR (Non-African American) 46.5; Glucose 90 mg/dl (70-99); Magnesium 2.2 mg/dl (1.8-2.4); Potassium 4.2 mmol/L (3.5-5.1); Sodium 142 mmol/L (136-145)
[2020-03-10 06:36] LABS: Troponin I < 0.015 ng/ml (0-0.045)
[2020-03-10] MEDS: TICAGRELOR 90 MG TAB PO SCH (07:51)
[2020-03-10] MEDS: CHOLECALCIFEROL 1,000 UNITS 25 MCG TAB PO SCH (07:52)
[2020-03-10] MEDS: carvediloL 3.125 MG TAB PO SCH (07:52)
[2020-03-10] MEDS: FAMOTIDINE 20 MG TAB PO SCH (07:53)
[2020-03-10] MEDS: TOPIRAMATE 25 MG TAB PO SCH (07:54)
[2020-03-10] MEDS: ASPIRIN 81 MG ECTAB PO SCH (07:54)
[2020-03-10] MEDS: VALSARTAN 80 MG TAB PO SCH (07:55)
[2020-03-10] MEDS ORDERED: COLCHICINE 0.6 MG TAB PO SCH (09:00)
[2020-03-10] MEDS ORDERED: VERAPAMIL HCL 120 MG TABCR PO SCH (09:00)
--- NOTE | 2020-03-10 10:55 | Cardiology Progress Note ---
Date of Service March 10, 2020 Assessment & Plan (1) CAD (coronary artery disease): 2. Ischemic cardiomyopathy 3. COPD 4. Hypertension 5. Paroxysmal atrial tachycardia Stable from a cardiac standpoint. Cardiac enzymes negative x3. Echo unchanged. Telemetry unremarkable. Very low suspicion for ACS. No need for additional cardiac testing at this time. From a cardiac standpoint okay with discharge today. Home on current DAPT, antihypertensive regimen. Can stop colchicine. Plans to follow-up with his outpatient dispute specialist regarding wheezing. Admission and Anticipated Discharge Date Admission Date: March 09, 2020 Subjective Feeling well today. States is been up walking 15 minutes without any chest pain or new symptoms. Feels like himself. Telemetry reviewedno significant events Review of Systems Review of Systems: All systems reviewed & are unremarkable except as noted in HPI & below Physical Exam Physical Exam: General: Comfortable, no acute distress HEENT: Sclerae anicteric, mucous membranes moist Lungs: Diffuse mild scattered wheezing otherwise clear Cardiac: Regular rate and rhythm, no murmurs. No JVD. Abdomen: Soft, nontender, nondistended, positive bowel sounds. Extremities: Warm, well perfused, no edema. 2+ radial pulses Skin: No rashes or lesions. Neuro: Nonfocal Psych: Alert orient x3, normal affect and mood Results & Data ([facility]) Vital Signs (Past 12 Hours) Vital Signs Temp Pulse Resp BP BP Pulse Ox 03/10/20 07:01 97.5 F L 69 19 155/88 H 99 03/10/20 03:30 97.9 F 60 16 121/68 98 03/09/20 23:18 98.1 F 67 16 129/69 97 PG Care Time/CCT Total # of Minutes Spent Total Time Spent with Patient: Total time spent is greater than 50% in coordination of care (as documented) at patient's floor/unit and/or counseling patient: Coding Level of Care Code 59666 Subseq Hosp Care Lvl 3 Diagnoses CAD (coronary artery disease) I25.10
--- NOTE | 2020-03-10 14:59 | Discharge Summary ---
Date of Service March 10, 2020 Admission HPI Per Admitting Provider 84yo M w/ hx of CAD who presents with chest pain. Chest pain began around 4:30am. The patient was up and watching TV. Describes the pain as a 10/10 pressure under the left sternum without radiation to the jaw or arm. Associated with some shortness of breath. No dizziness or lightheadedness. Took 2 nitro at 5am and 5:05am without relief. Daughter called EMS. In the ambulance, they gave him some fentynl which improved the pain. He reports it has come back up to a 2/10 at present. Some transient shortness of breath at times in the ED. Principal Diagnosis Chest pain, likely musculoskeletal Discharge Exam Constitutional WD/WN, vitals as above Eyes EOM intact bilaterally; no conjunctival abnormality ENMT external ear and nose normal, oropharynx normal Neck trachea midline, no thyromegaly normal visual inspection Respiratory normal respiratory effort, lungs clear to auscultation no respiratory distress Cardiovascular RRR, no murmur, no edema Gastrointestinal (Abdomen) Inspection/Auscultation: abdomen normal to inspection; abdomen not distended Musculoskeletal no cyanosis or clubbing, extremities motor strength 5/5 Skin no rashes, warm and dry Neurologic moves all extremities and awake Psychiatric Orientation: alert, oriented to person and cooperative Discharge Data Allergies Allergy/AdvReac Type Severity Reaction Status Date / Time Cephalosporins Allergy Intermediate Rash Verified 03/09/20 08:43 fluticasone Allergy Intermediate Rash Verified 03/09/20 08:43 Iodinated Contrast Media Allergy Intermediate Hives Verified 03/09/20 08:43 oxycodone Allergy Intermediate HIVES Verified 03/09/20 08:43 Penicillins Allergy Intermediate Rash Verified 03/09/20 08:43 salmeterol Allergy Mild Rash Verified 03/09/20 08:43 cephalexin [From Keflex] Allergy Unknown Unknown Verified 03/09/20 08:43 pravastatin Allergy Unknown myalgias Verified 03/09/20 08:43 prednisone Allergy Unknown Unknown Verified 03/09/20 08:43 atorvastatin AdvReac Mild MUSCLE Verified 03/09/20 08:43 ACHES fluvastatin AdvReac Mild MUSCLE Verified 03/09/20 08:43 ACHES lisinopril AdvReac Mild Cough Verified 03/09/20 08:43 rosuvastatin AdvReac Mild MUSCLE Verified 03/09/20 08:43 ACHES Consultations 03/09/20 07:47 Consult Cardiology Stat 03/09/20 08:04 ED Decision to Admit Stat 03/09/20 11:03 Consult Cardiology Routine Hospital Course (1) Chest pain: Similar to his prior chest pain when he had a heart attack. EKG shows TWIs in I and aVL, but are chronic. - All troponins negative and EKGs stable. - Limited echo showed stable EF and regional wall motion from one earlier this month. - Discussed with Dr. Albert Sahu; no cardiac med changes as he is very sensitive to changes and ends up with complications - Started diclofenac gel for MSK pain. (2) CAD (coronary artery disease): STEMI in 2016 with [address] Sahu. - Continue home CAD meds: DAPT, beta-gene, ARB - Not on statin for myalgias (3) Hypertension: BP is 130/80 in the ED. - Continue meds as above (4) COPD (chronic obstructive pulmonary disease): Mild wheeze on exam and reports transient shortness of breath. - Continue home Breo - Sent home with albuterol inhaler - Will follow up with [facility] cold storage supervisor. (5) Multifocal atrial tachycardia: None noted so far. - Monitor (6) CKD (chronic kidney disease) stage 3, GFR 30-59 ml/min: Baseline Cr is 1.4 with eGFR ~45. - At baseline on presentation - Monitor; avoided nephrotoxins as able (7) DVT prophylaxis: Was briefly on heparin gtt; then just SCDs Total Time Total Time Spent Total Time Spent (In Minutes): 35 Discharge Plan Discharge Items Patient Disposition: Home - Self-Care Reason For Visit: CHEST PAIN Discharge Diagnosis: Musculoskeletal chest pain Activity: Resume your previous activity Non-emergency contact: Primary Care Provider and Block Setter [place] Call non-emergency contact if: your symptoms worsen, your pain is not controlled and your pain is worsening Follow-up/Referrals: Loan Zafar PA-C [Primary Care Provider] - Froilan Sahu MD [Physician] - (Please see Dr. Sahu in 2-3 weeks for follow up.) Diet: Heart Healthy Addtl Attending Provider Instructions: You were admitted to the hospital with chest pain. Luckily your labs (troponin) indicated that you DID NOT have a heart attack! This is great news! On top of this, your echo (the ultrasound of your heart that looks at how your heart squeezes) shows that your heart is stable. This is also great! We feel this was hopefully not related to your heart at all. We will send you home with a gel that will hopefully improve this pain if it comes back. For your breathing, continue taking your Breo every day. We are also sending an albuterol inhaler to your pharmacy. It seems like your breathing has been bother you more lately. It is worth seeing your cold storage supervisor at [facility] to see if you need a change or addition to your maintenance inhaler. Pending Studies at Discharge: No Stand-Alone Forms: [email or web address], Smoking Cessation Medications and DC Order Prescriptions: New diclofenac sodium 1 % gel 2 gm TOP QID PRN (Reason: muscle pain) Qty: 100 RF: 0 albuterol sulfate 90 mcg/actuation HFA aerosol inhaler 2 puffs INH Q6H PRN (Reason: shortness of breath or wheezing) Qty: 6.7 RF: 0 (DME) Spacer for Inhaler Misc See Rx Instructions .ROUTE .MEDSUPPLY Qty: 1 RF: 0 Continued Breo Ellipta 200-25 mcg/dose blister with device 1 puffs INH DAILY Qty: 28 RF: 2 famotidine [Pepcid] 20 mg tablet 20 mg PO BID RF: 0 topiramate [Topamax] 25 mg tablet 25 mg PO QAM RF: 0 verapamil 120 mg capsule,ext rel. pellets 24 hr 120 mg PO QAM RF: 0 valsartan 40 mg tablet 20 mg PO QAM RF: 0 colchicine 0.6 mg tablet 0.6 mg PO QAM RF: 0 nitroglycerin [Nitrostat] 0.4 mg Tablet, Sublingual 1 tab Sublingual UD PRN (Reason: Chest Pain) RF: 0 albuterol sulfate [Ventolin HFA] 90 mcg/actuation Hfa Aerosol Inhaler 2 puff Inhalation QID PRN (Reason: SOB) RF: 0 cholecalciferol (vitamin D3) [Vitamin D3] 1,000 unit Capsule 1,000 unit PO BID RF: 0 aspirin [Ecotrin Low Strength] 81 mg Tablet,Delayed Release (Dr/Ec) 81 mg PO QAM Qty: 30 RF: 0 carvedilol [Coreg] 3.125 mg tablet 3.125 mg PO BID RF: 0 Brilinta 90 mg tablet 90 mg PO BID RF: 0 Discharge Orders: Discharge Order (Routine); Ordered 03/10/20 Ordered By: Leonard Wilkins/Other Patient Handouts: Low-Salt Choices, Exercise Healthy Heart, Foods Heart Healthy Admission Data Admit Date/Time: 03/09/20 09:02 Attending Provider: Leonard Loredo Admit Provider: Leonard Loredo Primary Care Provider: Loan Zafar Other Providers: Froilan Sahu ; Leonard Loredo Other Interventions: Discharge Summary Assessment (RN) Last Done: 03/10/20 11:13 DC Date/Time DO NOT enter until pt leaves facility: 03/10/20 12:09 Coding Level of Care Code 68935 OBS Care - Discharge Diagnoses Chest pain R07.9 CAD (coronary artery disease) I25.10 Hypertension I10 Hypertension type: essential hypertension COPD (chronic obstructive pulmonary disease) J43.9 COPD type: emphysema Emphysema type: unspecified Multifocal atrial tachycardia I47.1 CKD (chronic kidney disease) stage 3, GFR 30-59 ml/min N18.3 DVT prophylaxis Z29.9
== END 2020-03-10 12:09 | disposition home or self-care (01) ==
LOC: 2S 07:25 → ED 07:25 → 2S 10:02
DX: Z85.118 Personal history of other malignant neoplasm of bronchus and lung; Z95.5 Presence of coronary angioplasty implant and graft; Z96.652 Presence of left artificial knee joint; Z79.82 Long term (current) use of aspirin; I25.10 Atherosclerotic heart disease of native coronary artery without angina pectoris; N18.3 Chronic kidney disease, stage 3 (moderate); Z88.0 Allergy status to penicillin; Z91.041 Radiographic dye allergy status; R07.9 Chest pain, unspecified; Z87.891 Personal history of nicotine dependence; Z79.899 Other long term (current) drug therapy; Z88.5 Allergy status to narcotic agent; I25.2 Old myocardial infarction; I12.9 Hypertensive chronic kidney disease with stage 1 through stage 4 chronic kidney disease, or unspecified chronic kidney disease; Z96.612 Presence of left artificial shoulder joint; Z88.8 Allergy status to other drugs, medicaments and biological substances; J44.9 Chronic obstructive pulmonary disease, unspecified; Z90.2 Acquired absence of lung [part of]; E78.5 Hyperlipidemia, unspecified

== ENCOUNTER 2021-01-28 05:15 | Observation (INO) ==
--- NOTE | 2021-01-14 15:40 | Communication Note ---
Received message from Triny at Dr. Allan's office that patient is planned to have upcoming endoscopic cautery and packing. They are inquiring if patient appropriate surgical center candidate for 01/18. Past medical history was reviewed with Dr. Keyes > given review of records, recommendation for patient to be scheduled at [facility] if possible.
--- NOTE | 2021-01-15 15:25 | Anesthesiology Consultation ---
Date of Service January 15, 2021 Assessment & Plan (1) Encounter for pre-operative examination: Chart Review Chart Review: Pending: Refer to Additional Notes / Consult section (pending CXR results from 01/18/21, surgeon ordered cardiac clearance 01/23 and preop Covid testing results ) and Patient NOT seen in Pre Admission Testing Pt scheduled for endoscopic cautery and packing procedure with Dr. Allan on 01/18/21- will be getting repeat CXR at that time. -Currently pending surgeon ordered cardio clearance scheduled for 01/23/21. Per nursing assessment on 01/15/21, patient resides in [facility]. Travels to [facility] for medical appts. Uses PPE. No known Covid positive contacts or Covid related symptoms. No known Covid infection in the past 90 days. Pt will follow up with surgeon's office re: preop Covid testing= will await results. History Surgery Operation Date: 01/28/21 10:10 Proposed Procedures p Laparoscopic Cholecystectomy - Benjamin Duvall MD, FACS Height/Weight Height: 6 ft Weight: 83.915 kg Allergies Allergy/AdvReac Type Severity Reaction Status Date / Time Cephalosporins Allergy Intermediate Rash Verified 01/15/21 13:11 fluticasone Allergy Intermediate Rash Verified 01/15/21 13:11 Iodinated Contrast Media Allergy Intermediate Hives Verified 01/15/21 13:11 oxycodone Allergy Intermediate HIVES Verified 01/15/21 13:11 Penicillins Allergy Intermediate Rash Verified 01/15/21 13:11 salmeterol Allergy Mild Rash Verified 01/15/21 13:11 cephalexin [From Keflex] Allergy Unknown Unknown Verified 01/15/21 13:11 pravastatin Allergy Unknown myalgias Verified 01/15/21 13:11 prednisone Allergy Unknown Unknown Verified 01/15/21 13:11 atorvastatin AdvReac Mild MUSCLE Verified 01/15/21 13:11 ACHES fluvastatin AdvReac Mild MUSCLE Verified 01/15/21 13:11 ACHES lisinopril AdvReac Mild Cough Verified 01/15/21 13:11 rosuvastatin AdvReac Mild MUSCLE Verified 01/15/21 13:11 ACHES Medications Home Medications Medication Instructions Recorded Confirmed Last Taken cholecalciferol (vitamin D3) 1,000 unit PO BID 06/25/18 01/15/21 09/02/20 [Vitamin D3] nitroglycerin [Nitrostat] 1 tab SUBLINGUAL UD PRN 06/25/18 01/15/21 03/09/20 05:00 2 tablets aspirin [Ecotrin Low Strength] 81 mg PO QAM #30 tab 09/27/19 01/15/21 09/02/20 valsartan 20 mg PO QAM 03/09/20 01/15/21 09/02/20 pantoprazole 40 mg tablet,delayed 40 mg PO QAM 03/23/20 01/15/21 09/02/20 release zinc acetate 50 mg (zinc) capsule 50 mg PO DAILY 03/23/20 01/15/21 Unknown albuterol sulfate 90 mcg/actuation 2 puffs INH QID PRN g 06/12/20 01/15/21 09/02/20 aerosol inhaler fluticasone furoate 100 1 inh INHALATION DAILY 06/12/20 01/15/21 09/02/20 mcg-vilanterol 25 mcg/dose inhalation powder topiramate 25 mg tablet 25 mg PO QAM #90 tab 06/12/20 01/15/21 09/02/20 verapamil 120 mg 24 hr 120 mg PO QAM #90 cap 06/12/20 01/15/21 09/02/20 capsule,extended release ticagrelor 90 mg tablet 90 mg PO BID #180 tab 09/30/20 01/15/21 Unknown carvedilol 3.125 mg tablet 3.125 mg PO BID #180 tab 11/26/20 01/15/21 Unknown sucralfate 100 mg/mL oral 10 ml PO QID #1000 ml 01/02/21 01/15/21 Unknown suspension allopurinol 100 mg PO QAM 01/15/21 01/15/21 Unknown ezetimibe [Zetia] 10 mg PO QAM 01/15/21 01/15/21 Unknown Past Medical History Medical History Asthma CAD (coronary artery disease) S/p 4 stents in 2016 S/p stent 09/24/19 to D1 Known occluded distal LAD per cardio records Cancer of lung 1999 LOBECTOMY. CHEMO AND RADIATION Cerebral aneurysm Followed by Neuro MRA 07/18/19= "Stable 2 mm aneurysm arising from the lateral margin of the left cavernous carotid. Stable 2 mm aneurysm arising from the ophthalmic portion of the right internal carotid." Per 06/12/20 neuro note- two tiny aneursyms- stable on recent MRI- do not warrant neurosurgeon referral at this time- will continue to monitor CKD (chronic kidney disease) stage 3, GFR 30-59 ml/min COPD (chronic obstructive pulmonary disease) Pulmonary [facility], [facility] Dyslipidemia Hemiplegic migraine Followed by Neuro, [place]- stable at 06/12/20 appt (follow up in one year) WAS THOUGHT TO HAVE STROKE BUT HEMIPLEGIC MIGRAINE AND NO PROBLEMS SINCE Hypertension Ischemic cardiomyopathy EF 45-50% Cardiology, ZANDER Sabillon Laryngopharyngeal reflux Nasal bleeding plan surgery 01/18 to cauterize Neural hearing loss Pancreatic cyst Paroxysmal atrial tachycardia Asymptomatic per cardio Pulmonary emphysema Solitary pulmonary nodule STEMI (ST elevation myocardial infarction) 4 STENT 2015 1 STENT 09/24/19 Tinnitus of right ear Past Family History Family History Brother Cancer Hypertension Sister Cancer Hypertension Diabetes Mother Hypertension Diabetes Unknown Coronary heart disease Father Coronary heart disease Daughter Breast cancer Other Lung cancer Myocardial infarction Denies family history of Ovarian cancer Prostate cancer Hearing loss No family history of adverse response to anesthesia No family history of bleeding disorder Heart disease Allergies Colorectal cancer Stroke Asthma Past Surgical History Surgical History History of arthroplasty of left shoulder History of cardiac catheterization (~2015) 2016 HI WITH 4 STENTS 2019 with 1 stent to D1- pt dx'ed with STEMI at that time FOLLOWS WITH DR SABILLON History of colonoscopy History of excision of mass neck 2018 Hx of cataract surgery right and left S/P appendectomy S/P excision of lipoma S/P lobectomy of lung LEFT S/P total knee arthroplasty LEFT Stented coronary artery Social History Smoking Status: Never smoker tobacco type: cigarettes Smoking cigarettes per day: 10 Do You Dip or Chew Tobacco: No Hx Alcohol Use: No Hx Substance Use: No substance use type: does not use Testing Laboratory Results 01/14/21= WBC: 7.50 H/H: 14.0/43.3 PLATELETS: 171 SODIUM: 140 POTASSIUM: 3.9 CHLORIDE: 110 CO2: 27 PT: 10.2 PTT: 28.9 INR: 1.0 12/16/2020 = BUN: 19 CREATININE: 1.50 GLUCOSE: 87 GFR: 42.1 Electrocardiogram Date: 12/16/20 Findings: + NSR @ (79 bpm) Left anterior fascicular block. Incomplete right bundle branch block. LVH with QRS widening and repolarization abnormality. When compared to EKG from September 03, 2020premature supraventricular complexes are no longer present per cardio. (Incomplete RBBB, LAFB, and LVH with repo larization abnormality noted on 09/03/20 EKG- per cardio- T wave inversion less evident with compared to March 09, 2020 EKG- pt had ECHO done 03/09/20- see below) Chest X-Ray Date: 12/16/20 Findings: + NAD Emphysema chronic postoperative changes noted within the left lung. Remains unchanged. No new focal lung consolidation to suggest pneumonia. No evidence for pulmonary edema. No pneumothorax. No pleural effusions. Echocardiogram Date: 03/09/20 EF: 45-50% Other Findings: + LVH (Mild/concentric) Valvular Disease: + no significant valvular disease LV systolic function is mildly reduced. Severe hypokinesis of the mid and distal anterior wall, adjacent anterior septum, and entire apex. No thrombus. Cardiac Catheterization Date: 09/24/19 100% DIRECT MAIL COORDINATOR of LAD with right to left collaterals. 100% acute occlusion of D1. Successful POBA of D1 Other Testing Chest CT 01/08/2021 = interval decrease in the left lower lobe nodular opacity since abdominal CT of December 16, 2020. Therefore these were likely infectious. Interval development of 9 mm groundglass right lower lobe nodule since that CT consistent with an infectious process. Otherwise, unchanged appearance of the chest following left lower lobectomy since chest CT of August 10, 2020. No evidence for recurrent malignancy. Severe emphysema. MRA of head 07/18/19 = Stable 2 mm aneurysm arising from the lateral margin of the left cavernous carotid. Stable 2 mm aneurysm arising from the ophthalmic portion of the right internal carotid.
[2021-01-28] MEDS ORDERED: CLINDAMYCIN PHOS 300 MG/2 ML VIAL IV SCH (06:00)
[2021-01-28] MEDS ORDERED: LACTATED RINGER'S 1,000 ML IV SCH (06:00)
[2021-01-28] MEDS ORDERED: CLINDAMYCIN 900 MG in DEXTROSE 5% 50 ML IV SCH (06:00)
[2021-01-28] MEDS ORDERED: GLYCOPYRROLATE 0.2 MG/ML VIAL ONE (06:38)
[2021-01-28] MEDS ORDERED: LIDOCAINE HCL 2% 2 ML VIAL/AMP(20MG/ML) INFIL ONE (06:38)
[2021-01-28] MEDS ORDERED: MIDAZOLAM HCL 1 MG/ML 2ML VIAL ONE (06:38)
[2021-01-28] MEDS ORDERED: PROPOFOL IV EMULSION 10 MG/ML 20 ML VIAL IV ONE (06:38)
[2021-01-28] MEDS ORDERED: DEXAMETHASONE SOD INJ 4 MG/ML VIAL ONE (06:38)
[2021-01-28] MEDS ORDERED: ONDANSETRON INJ 2 MG/ML 2 ML VIAL ONE (06:38)
[2021-01-28] MEDS ORDERED: NEOSTIGMINE METHYLSULFATE 5 MG/5 ML SYR ONE (06:38)
[2021-01-28] MEDS ORDERED: fentaNYL citrate 100 MCG/2 ML VIAL ONE (06:39)
--- NOTE | 2021-01-28 06:41 | History & Physical Bridge Note ---
Date of Service January 28, 2021 History & Physical Bridge Note I have examined the patient, reviewed the History & Physical and in the interval since the performance of the History & Physical I have noted the following changes of clinical significance: no changes noted
[2021-01-28] MEDS ORDERED: BUPIVACAINE 0.5 % 5 MG/1 ML MPF 30ML VIAL ONE (06:46)
[2021-01-28] MEDS ORDERED: ONDANSETRON INJ 2 MG/ML 2 ML VIAL IV PRN ×2 (06:51→11:02)
[2021-01-28] MEDS ORDERED: fentaNYL citrate 100 MCG/2 ML VIAL IV PRN (06:51)
[2021-01-28] MEDS ORDERED: ATROPINE SULFATE 0.1 MG/ML 10ML SYR IV PRN (06:51)
[2021-01-28] MEDS ORDERED: FLOSEAL HEMOSTATIC MATRIX 10ML TOP ONE (08:07)
--- NOTE | 2021-01-28 08:49 | Post Operative Brief Note ---
PG Immediate Post Op with CF Date of Surgery January 28, 2021 Pre & Post Diagnosis Operation Date: 01/28/21 07:00 Pre-Op Diagnosis: Adenomyomatosis of Gallbladder Post-Op Diagnosis: Adenomyomatosis of Gallbladder, severe small bowel adhesions I identified the patient and participated in the time-out.: Yes Procedure Operation Date: 01/28/21 07:00 Actual Procedures p Laparoscopic Cholecystectomy with Enterolysis(Not Applicable) - Benjamin Duvall MD, FACS Limited laparotomy Surgeon Benjamin Duvall MD, FACS Horse Racing Analyst Cheng Chu Estimated Blood Loss 15 Findings Consistent with Post-Op Diagnosis Specimens Specimen Description: A. Gallbladder Drains Sorin-Arzate Drain (15 fr round)
[2021-01-28] MEDS ORDERED: ACETAMINOPHEN 1,000 MG/100 ML VIAL IV ONE (08:50)
--- NOTE | 2021-01-28 10:20 | Anesthesiology Progress Note ---
Date of Service January 28, 2021 Anesthesia Post Procedure Vital Signs Vital Signs: Temp Pulse Pulse Resp BP Pulse Ox 01/28/21 10:15 63 17 128/69 98 01/28/21 10:00 63 14 134/70 97 01/28/21 09:45 67 20 140/74 99 01/28/21 09:35 36.2 C L 67 16 138/75 100 01/28/21 09:25 68 18 134/76 100 01/28/21 09:15 72 18 140/78 94 01/28/21 09:05 76 14 130/78 98 01/28/21 08:56 36.2 C L 78 15 148/71 H 96 01/28/21 05:53 37.0 C 82 18 161/77 H 97 Transfer of Care Handoff Completed per policy Notes Mental Status: alert / awake / arousable Patient Amnestic to Procedure: Yes Nausea / Vomiting: adequately controlled Pain: adequately controlled Airway Patency, RR, SpO2: stable & adequate BP & HR: stable & adequate Hydration State: stable & adequate Anesthetic Complications: no major complications apparent
[2021-01-28] MEDS ORDERED: PHENYLEPHRINE 100MCG/ML 5ML SYR ONE (10:24)
[2021-01-28] MEDS ORDERED: ePHEDrine sulfate 50 MG/ML AMP ONE (10:24)
[2021-01-28] MEDS ORDERED: NITROGLYCERIN SL 0.4 MG/TAB TAB SL PRN (11:02)
[2021-01-28] MEDS ORDERED: PROMETHAZINE HCL 12.5 MG in SODIUM CHLORIDE 0.9% 50 ML IV PRN (11:02)
[2021-01-28] MEDS ORDERED: HYDROCODONE/ACETAMOPHEN 5/325MG TAB PO PRN (11:02)
[2021-01-28] MEDS ORDERED: MoRPHine SULFATE 2 MG/ML CARP IV PRN (11:02)
[2021-01-28] MEDS ORDERED: ALBUTEROL HFA 8 GM INHALER INH PRN (11:02)
--- NOTE | 2021-01-28 11:14 | Operative Report (OR) ---
DATE OF OPERATION: 01/28/2021 NAME OF OPERATION: Laparoscopy with enterolysis, laparoscopic cholecystectomy and limited laparotomy. PREOPERATIVE DIAGNOSIS: Biliary colic. POSTOPERATIVE DIAGNOSIS: Biliary colic with severe small bowel adhesions. STAFF SURGEON: Benjamin Duvall MD. STORAGE CONSULTANT: Jan Chu PA-C. ANESTHESIA: General. DESCRIPTION OF PROCEDURE: The patient was brought in the operating room and placed on the operating table in supine position. His abdomen was prepped and draped in usual fashion. My assistant manager bilingual helped with prepping, draping, removal of the gallbladder, enterolysis and closure of the wounds. The patient had a long incision just to the right of the umbilicus in the midline. We made an incision above the umbilicus using 0.5% plain Marcaine to anesthetize skin and subcutaneous tissue. Veress needle was placed. Pneumoperitoneum produced. I placed an 11 mm port at this level and under visualization, it was apparent the patient had severe adhesions of the omentum and small bowel in the upper abdomen essentially obstructing the liver and gallbladder. I was able to place a second port in the left upper quadrant, this was a 5 mm port, and also another 5 mm port in the left abdomen and then with some difficulty, I was able to lyse the adhesions of the omentum and small bowel. There was one area of the small bowel I wanted to observe at the end of the case through a small mini laparotomy incision. At this point, we were able to identify the gallbladder, which had severe adhesions. These were taken down. The cystic duct and cystic artery were identified, clipped and transected and the gallbladder dissected away from the liver bed. There was significant scar tissue. It was placed in an Endobag. The Endobag was removed through the umbilical site. The pneumoperitoneum was reintroduced after appropriate irrigation and hemostasis, I placed a 15 round BALDEMAR drain into the subhepatic space, used some FloSeal, we then reduced the pneumoperitoneum. I actually had grasped an area near the small bowel, which I wanted to observe. I increased the length of the supraumbilical incision. We then brought the small bowel up through that incision, I did place some serosal sutures of 3-0 silk. At this point, satisfied with everything and we closed the umbilical incision using interrupted and running 0 PDS suture. Skin reapproximated at the umbilicus using margaret. Other sites closed using 4-0 nylon for the skin. Drain placed to suction bulb. The patient transferred to recovery room in stable condition. I attest to the content of the Intraoperative Record and any orders documented therein. Any exception s are noted below.
[2021-01-28] MEDS ORDERED: SODIUM CHLORIDE 0.9% 1000ML 1,000 ML IV SCH (12:45)
--- NOTE | 2021-01-28 12:50 | Hospitalist Consultation ---
Date of Consultation January 28, 2021 Assessment & Plan (1) Adenomyomatosis of gallbladder: Per primary service - drain managment per primary service - Appropriate tiered approach- pain control per primary service - May need additional bowel regimine- follow up POD #1 - Nausea controlled - Postoperative antibiotics per primary team - DVT prophylaxis per the primary team (2) CAD (coronary artery disease): No chest pain or discomfort postoperatively - Continue Carvdilol 3.125 mg PO BID - Continue ASA as Ok'd by primary surgeon through pre-op and postoperative phase - Can add on Brilinta when hemostasis is ensured and drain removed - Primary team notify hospitalist team when you feel this has occurred and we can restart. - Continue Zetia- for HLD - Hold ARB for 24-48 hours postoperatively- restart in morning if renal indices are normal. - Goal SBP <130- Notify hospitalist team for further BP management if needed - ECG for any chest pain (3) Hypertension: As above - Can continue Verapamil for dual HTN and Migraine (4) Ischemic cardiomyopathy: Last ECHO 2019- - no acute needs, optimal medical therapy as above (5) COPD (chronic obstructive pulmonary disease): Emphysema - Continue Albuterol as LIT- PRN QID - Re-ordered Breo first dose 01/29/21 - Wean oxygen for SPO2 88-92 % - ICS - No acute needs (6) Dyslipidemia: As above, continue Zetia - lipids in morning (7) CKD (chronic kidney disease) stage 3, GFR 30-59 ml/min: Follow BMP in the morning - Avoid nephrotoxic medications, if needed minimize exposure time - Control BP as above - PO hydration as patient tolerates, supplement IVF for 24 hours post operatively (8) Migraine: Continue topamax and Verapmil - No current needs (9) DVT prophylaxis: Chemical prophylaxis per primary team - SCD's, ASA, early ambulation currently Supervising Physician Co-Signing Physician Notes During my face to face encounter, I obtained a history and physical examination. I reviewed above note and agree with it. I discussed plan of care with patient and APC Olivia. I answered all of the patient's questions. Patient being consulted for medical management. will resume home meds for CAD, HTN History of Present Illness Reason for Consultation: Post-op managment Requesting Physician: Benjamin Duvall Attending Physician: Benjamin Duvall MD, FACS History of Present Illness 85 YOM with past medical history of STEMI, CAD with stents to LAD and D1, ICM- EF 50% (2019) on ASA and Brilinta, also status post endoscopic and cautery of nasal setup granuloma 01/18/21, HTN, HLD, COPD (emphysema) treated for a COPD exacerbation in December with steroid taper, CKD III, and pulmonary nodule being followed by PCP, left lobectomy. He was being followed for epigastric discomfort and following work-up he was found to have an adenomyomatosis of the gall bladder and was scheduled to undergo laparoscopic cholecystectomy that was performed today. Seen in his room postoperatively from laparoscopic cholecystectomy with lysis of adhesions and placement of Kuldip drain to bulb suction. The patient was awake, no postoperative nausea, pain was controlled, he was tolerating sips of water. He states "fell much better". He was on 2LNC and appears to be doing quite well at this time. Allergies Allergy/AdvReac Type Severity Reaction Status Date / Time Cephalosporins Allergy Intermediate Rash Verified 01/22/21 11:07 fluticasone Allergy Intermediate Rash Verified 01/22/21 11:07 Iodinated Contrast Media Allergy Intermediate Hives Verified 01/22/21 11:07 Penicillins Allergy Intermediate Rash Verified 01/22/21 11:07 salmeterol Allergy Mild Rash Verified 01/22/21 11:07 cephalexin [From Keflex] Allergy Unknown Unknown Verified 01/22/21 11:07 pravastatin Allergy Unknown myalgias Verified 01/22/21 11:07 atorvastatin AdvReac Mild MUSCLE Verified 01/22/21 11:07 ACHES fluvastatin AdvReac Mild MUSCLE Verified 01/22/21 11:07 ACHES lisinopril AdvReac Mild Cough Verified 01/22/21 11:07 rosuvastatin AdvReac Mild MUSCLE Verified 01/22/21 11:07 ACHES Home Medications Medication Instructions Recorded Confirmed Type cholecalciferol (vitamin D3) 1,000 unit PO BID 06/25/18 02/04/21 History [Vitamin D3] nitroglycerin [Nitrostat] 1 tab SUBLINGUAL UD PRN 06/25/18 02/04/21 History pantoprazole 40 mg tablet,delayed 40 mg PO QAM 03/23/20 02/04/21 History release zinc acetate 50 mg (zinc) capsule 50 mg PO DAILY 03/23/20 02/04/21 History albuterol sulfate 90 mcg/actuation 2 puffs INH QID PRN g 06/12/20 02/04/21 History aerosol inhaler fluticasone furoate 100 1 inh INHALATION DAILY 06/12/20 02/04/21 History mcg-vilanterol 25 mcg/dose inhalation powder topiramate 25 mg tablet 25 mg PO QAM #90 tab 06/12/20 02/04/21 Rx verapamil 120 mg 24 hr 120 mg PO QAM #90 cap 06/12/20 02/04/21 Rx capsule,extended release carvedilol 3.125 mg tablet 3.125 mg PO BID #180 tab 11/26/20 02/04/21 Rx sucralfate 100 mg/mL oral 10 ml PO QID #1000 ml 01/02/21 02/04/21 Rx suspension allopurinol 100 mg PO QAM 01/15/21 02/04/21 History ezetimibe 10 mg tablet 10 mg PO QAM #90 tab 01/16/21 02/04/21 Rx valsartan 40 mg tablet 20 mg PO QAM #30 tab 01/22/21 02/04/21 Rx hydrocodone-acetaminophen 1 - 2 tab PO Q6H PRN #30 tab 01/30/21 02/04/21 Rx clopidogrel 75 mg PO QAM #90 tab 02/03/21 02/04/21 Rx potassium citrate 10 meq PO BID #20 tab 02/03/21 02/04/21 Rx rivaroxaban [Xarelto] 15 mg PO BID #40 tab 02/03/21 02/04/21 Rx rivaroxaban [Xarelto] 20 mg PO DAILY #30 tab 02/03/21 02/04/21 Rx Patient History Medical History Asthma CAD (coronary artery disease) S/p 4 stents in 2016 S/p stent 09/24/19 to D1 Known occluded distal LAD per cardio records Cancer of lung 1999 LOBECTOMY. CHEMO AND RADIATION Cerebral aneurysm Followed by Neuro MRA 07/18/19= "Stable 2 mm aneurysm arising from the lateral margin of the left cavernous carotid. Stable 2 mm aneurysm arising from the ophthalmic portion of the right internal carotid." Per 06/12/20 neuro note- two tiny aneursyms- stable on recent MRI- do not warrant neurosurgeon referral at this time- will continue to monitor CKD (chronic kidney disease) stage 3, GFR 30-59 ml/min COPD (chronic obstructive pulmonary disease) [facility] [place] Dyslipidemia Hemiplegic migraine Followed by Neuro, [place]- stable at 06/12/20 appt (follow up in one year) WAS THOUGHT TO HAVE STROKE BUT HEMIPLEGIC MIGRAINE AND NO PROBLEMS SINCE Hypertension Ischemic cardiomyopathy EF 45-50% CardiologyZANDER Laryngopharyngeal reflux Nasal bleeding plan surgery 01/18 to cauterize Neural hearing loss Pancreatic cyst Paroxysmal atrial tachycardia Asymptomatic per cardio Pulmonary embolism and infarction Pulmonary emphysema Solitary pulmonary nodule STEMI (ST elevation myocardial infarction) 4 STENT 2015 1 STENT 09/24/19 Tinnitus of right ear Surgical History History of arthroplasty of left shoulder History of cardiac catheterization (~2015) 2015 MS WITH 4 STENTS 2018 with 1 stent to D1- pt dx'ed with STEMI at that time FOLLOWS WITH DR SABILLON History of colonoscopy History of excision of mass neck 2017 Hx of cataract surgery right and left S/P appendectomy S/P excision of lipoma S/P laparoscopic cholecystectomy (01/28/21) Laparoscopy with enterolysis, laparoscopic cholecystectomy and limited laparotomy 01/28/21 Dr. Duvall S/P lobectomy of lung LEFT S/P total knee arthroplasty LEFT Stented coronary artery Family History Brother Cancer Hypertension Sister Cancer Hypertension Diabetes Mother Hypertension Diabetes Unknown Coronary heart disease Father Coronary heart disease Daughter Breast cancer Other Lung cancer Myocardial infarction Denies family history of Ovarian cancer Prostate cancer Hearing loss No family history of adverse response to anesthesia No family history of bleeding disorder Heart disease Allergies Colorectal cancer Stroke Asthma Social History Smoking Status: Never smoker Tobacco Type: Cigarettes Cigarettes Per Day: 10; Second Hand Exposure: No; Hx Alcohol Use: No Hx Substance Use: No Preferred Language: Andorran Communication Ability: Effective Visual Impairment: No Limitations 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: Normal 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: No Beliefs That Will Affect Care: None marital status: Current Living Situation: Spouse current occupational status: retired current occupation: retired Feels Safe at Home: Yes Childhood Exposure to Second-Hand Smoke: Yes caffeine: Yes Dental Care, Regularly: No Physical Activity Frequency: Does not Exercise Seatbelt Use: always Sunscreen Use: Yes Assistive Devices: None Review of Systems Review of Systems: REVIEW OF SYSTEMS: Constitutional: No fever, sweats or chills Eyes: (+) brusing to left nasal lacrimal duct area, No diplopia, no worsening or blurred vision ENT: (+) nose bleeds, procedure completed as per HPI, normal hearing, no trouble swallowing Respiratory: No cough, sputum, dyspnea at rest or on exertion Cardiovascular: No chest pain, tightness or palpitations Abdomen: (+) pain, (-) nausea, vomiting, diarrhea or constipation Musculoskeletal: No joint pain, calf pain, swelling Neurologic: No weakness, numbness/tingling, or balance problems Psychiatric: No anxiety or depression Skin: No rash or itch Physical Exam Physical Exam: PHYSICAL EXAM: General: awake, alert, no apparent distress Head: Normocephalic, atraumatic ENT: PERRL, EOMI, no pharyngeal exudate, mucous membranes moist, echymosis as noted per ROS to left nasal eye, Neuro: AAO x 3, speech clear and appropriate, strength intact bilaterally 5/5, sensation intact and equal all extremities and dermatomes, no pronator drift Chest: equal rise and fall of the chest, no accessory muscle use, no heaves or thrills, Clear to auscultation, on room air, Cardiac: Regular rate and rhythm, telemetry reviewed, skin warm dry, cap refill <3 seconds, peripheral pules +2 no JVD, no murmur, no edema GI: hypoactive bowel sounds quadrants, soft, gauze covering abdomen midline and right quadrant, small amount of strike through noted, kuldip drain in place, not to suction, no nausea : has not voided post operatively; Extremities: Normal inspection, no peripheral edema or erythema, calfs nontender to palpation Psych: Normal mood and affect Skin: no rash or erythema Results & Data Results & Data ([facility]) Vital Signs (Past 12 Hours) Vital Signs Temp Pulse Pulse Pulse Resp BP BP 01/28/21 12:04 35.5 C L 69 18 143/87 H 01/28/21 11:35 70 18 172/92 H 01/28/21 11:00 36.3 C L 76 16 106/66 01/28/21 10:45 66 16 130/70 01/28/21 10:30 62 19 128/70 01/28/21 10:15 63 17 128/69 01/28/21 10:00 63 14 134/70 01/28/21 09:45 67 20 140/74 01/28/21 09:35 36.2 C L 67 16 138/75 01/28/21 09:25 68 18 134/76 01/28/21 09:15 72 18 140/78 01/28/21 09:05 76 14 130/78 01/28/21 08:56 36.2 C L 78 15 148/71 H 01/28/21 05:53 37.0 C 82 18 161/77 H Pulse Ox 01/28/21 12:04 99 01/28/21 11:35 99 01/28/21 11:00 96 01/28/21 10:45 94 01/28/21 10:30 96 01/28/21 10:15 98 01/28/21 10:00 97 01/28/21 09:45 99 01/28/21 09:35 100 01/28/21 09:25 100 01/28/21 09:15 94 01/28/21 09:05 98 01/28/21 08:56 96 01/28/21 05:53 97 Laboratory Results No recent labs; pre-op labs reviewed Diagnostic Findings PRE-OP chest XR chest 2V PA/lateral HISTORY: 85 years-old Male SDS preoperative exam. Acute right-sided foot pain. No acute chest complaints COMPARISON: Chest radiograph 12/16/2020 TECHNIQUE: PA and lateral views of the chest FINDINGS: Cardiomediastinal and hilar silhouettes are unchanged. Postoperative changes of prior left lower lobectomy with post treatment-related changes of the the left hilum. Chronic left diaphragmatic elevation. Severe emphysema. No pneumothorax, pleural effusion, airspace consolidation or overt pulmonary edema. Degenerative changes of the shoulders and spine. IMPRESSION: Chronic findings as above without acute process. Medications Administered Discontinued Medications Bupivacaine HCl (Bupivacaine 0.5 % 5 Mg/1 Ml Mpf 30ml Vial) Confirm Administered Dose 30 ml .ROUTE .STK-MED ONE Stop: 01/28/21 06:47 Last Admin: 01/28/21 08:44 Dose: 25 ml Documented by: [id number] Lactated Ringer's (Lr) 1,000 mls @ 15 mls/hr IV PREOP DALLIN Stop: 01/29/21 05:59 Last Infusion: 01/28/21 06:54 Dose: 0 mls/hr Documented by: [id number] Admin: 01/28/21 05:45 Dose: 15 mls/hr Documented by: [id number] Clindamycin Phosphate 900 mg/ (Dextrose) 56 mls @ 112 mls/hr IV PREOP DALLIN Stop: 01/28/21 12:00 Last Infusion: 01/28/21 11:39 Dose: 0 mls/hr Documented by: [id number] Admin: 01/28/21 06:54 Dose: 112 mls/hr Documented by: [id number] Acetaminophen ([facility]) 1,000 mg in 100 mls @ 400 mls/hr IV NOW ONE; Protocol Stop: 01/28/21 09:04 Last Infusion: 01/28/21 11:39 Dose: 0 mls/hr Documented by: [id number] Admin: 01/28/21 09:02 Dose: 400 mls/hr Documented by: [id number] Miscellaneous ( Floseal Hemostatic Matrix 10ml) 10 ml TOP ONCE ONE Stop: 01/28/21 08:08 Last Admin: 01/28/21 08:19 Dose: 10 ml Documented by: [id number] Home Medications cholecalciferol (vitamin D3) [Vitamin D3] 1,000 unit PO BID 06/25/18 [History Confirmed 01/28/21] nitroglycerin [Nitrostat] 1 tab SUBLINGUAL UD PRN 06/25/18 [History Confirmed 01/28/21] aspirin [Ecotrin Low Strength] 81 mg PO QAM #30 tab 09/27/19 [Rx Confirmed 01/28/21] pantoprazole 40 mg tablet,delayed release 40 mg PO QAM 03/23/20 [History Confirmed 01/28/21] zinc acetate 50 mg (zinc) capsule 50 mg PO DAILY 03/23/20 [History Confirmed 01/28/21] albuterol sulfate 90 mcg/actuation aerosol inhaler 2 puffs INH QID PRN g 06/12/20 [History Confirmed 01/28/21] fluticasone furoate 100 mcg-vilanterol 25 mcg/dose inhalation powder 1 inh INHALATION DAILY 06/12/20 [History Confirmed 01/28/21] topiramate 25 mg tablet 25 mg PO QAM #90 tab 06/12/20 [Rx Confirmed 01/28/21] verapamil 120 mg 24 hr capsule,extended release 120 mg PO QAM #90 cap 06/12/20 [Rx Confirmed 01/28/21] ticagrelor 90 mg tablet 90 mg PO BID #180 tab 09/30/20 [Rx Confirmed 01/28/21] carvedilol 3.125 mg tablet 3.125 mg PO BID #180 tab 11/26/20 [Rx Confirmed 01/28/21] sucralfate 100 mg/mL oral suspension 10 ml PO QID #1000 ml 01/02/21 [Rx Confirmed 01/28/21] allopurinol 100 mg PO QAM 01/15/21 [History Confirmed 01/28/21] ezetimibe 10 mg tablet 10 mg PO QAM #90 tab 01/16/21 [Rx Confirmed 01/28/21] valsartan 40 mg tablet 20 mg PO QAM #30 tab 01/22/21 [Rx Confirmed 01/28/21] Active Medications Acetaminophen (Acetaminophen 325 Mg Tab) 650 mg PO Q4H PRN PRN Reason: Pain Stop: 02/27/21 11:01 Hydrocodone Bitart/Acetaminophen (Hydrocodone/Acetamophen 5/325mg Tab) 1 tab PO Q4HWA PRN PRN Reason: Mild Pain Stop: 02/11/21 11:01 Hydrocodone Bitart/Acetaminophen (Hydrocodone/Acetamophen 5/325mg Tab) 2 tab PO Q4HWA PRN PRN Reason: Moderate Pain Stop: 02/11/21 11:01 Albuterol (Albuterol Hfa 8 Gm Inhaler) 2 puffs INH QID PRN PRN Reason: Wheezing Stop: 02/27/21 11:01 Allopurinol (Allopurinol 100 Mg Tab) 100 mg PO QAM [facility] Stop: 02/27/21 11:44 Aspirin (Aspirin 81 Mg Ectab) 81 mg PO QAM [facility] Stop: 02/28/21 08:59 Carvedilol (Carvedilol 3.125 Mg Tab) 3.125 mg PO BID DALLIN Stop: 02/27/21 11:44 Ezetimibe (Ezetimibe 10 Mg Tablet) 10 mg PO QAM [facility] Stop: 02/27/21 11:44 Fluticasone/Vilanterol (Fluticasone/Vilanterol 100/25mcg 14 Puffs/Inhaler) 1 puffs INH DAILY [facility] Stop: 02/28/21 12:44 Clindamycin Phosphate 600 mg/ (Dextrose) 54 mls @ 100 mls/hr IV Q8H DALLIN Stop: 02/07/21 14:59 Promethazine HCl 12.5 mg/ (Sodium Chloride) 50.5 mls @ 204 mls/hr IV Q6H PRN PRN Reason: Nausea And Vomiting Stop: 02/27/21 11:01 Sodium Chloride (Nss 1000ml) 1,000 mls @ 50 mls/hr IV .Q20H DALLIN Stop: 02/27/21 12:44 Morphine Sulfate (Morphine Sulfate 2 Mg/Ml Carp) 2 mg IV Q3HWA PRN PRN Reason: Severe Pain Stop: 02/11/21 11:01 Nitroglycerin (Nitroglycerin Sl 0.4 Mg/Tab Tab) 0.4 mg SL UD PRN PRN Reason: Chest Pain Stop: 02/27/21 11:01 Ondansetron HCl (Ondansetron Inj 2 Mg/Ml 2 Ml Vial) 4 mg IV 4XDQ4H PRN PRN Reason: Nausea Stop: 02/27/21 11:01 Pantoprazole Sodium (Pantoprazole 40 Mg Tab) 40 mg PO QAM [facility] Stop: 02/27/21 11:44 Senna/Docusate Sodium (Docusate Sodium/Senna 50/8.6mg Tab) 1 tab PO BID [facility] Stop: 02/27/21 11:44 Sucralfate (Sucralfate 1 Gm/10 Ml Udc) 1 gm PO QID [facility] Stop: 02/27/21 12:59 Topiramate (Topiramate 25 Mg Tab) 25 mg PO QAM [facility] Stop: 02/27/21 11:44 Valsartan (Valsartan 80 Mg Tab) 20 mg PO QAM [facility] Stop: 02/27/21 11:44 Verapamil HCl (Verapamil Hcl 120 Mg Tabcr) 120 mg PO QAM [facility] Stop: 02/27/21 11:44 ECG Additional Comments: Pre-op ECG reviewed. PG Care Time/CCT Total # of Minutes Spent Total Time Spent with Patient: Total time spent is greater than 50% in coordination of care (as documented) at patient's floor/unit and/or counseling patient: Coding Level of Care Code 04257 Inpt Consult Level 3 Diagnoses Adenomyomatosis of gallbladder D13.5 CAD (coronary artery disease) I25.119 Associated angina: with unspecified angina Coronary Disease-Associated Artery/Lesion type: unspecified vessel or lesion type [place] vs. transplanted heart: [place] heart Hypertension I10 Hypertension type: essential hypertension Ischemic cardiomyopathy I25.5 COPD (chronic obstructive pulmonary disease) J43.9 COPD type: emphysema Emphysema type: unspecified Dyslipidemia E78.5 CKD (chronic kidney disease) stage 3, GFR 30-59 ml/min N18.30 Chronic kidney disease stage 3 subtype: unspecified whether 3a or 3b Migraine G43.909 Intractability: not intractable Migraine type: unspecified Status migrainosus presence: without status migrainosus DVT prophylaxis Z29.9 (1) CKD (chronic kidney disease) stage 3, GFR 30-59 ml/min Chronic kidney disease stage 3 subtype: unspecified whether 3a or 3b Qualified Code(s): N18.30 - Chronic kidney disease, stage 3 unspecified (2) CAD (coronary artery disease) Associated angina: with unspecified angina Coronary Disease-Associated Artery/Lesion type: unspecified vessel or lesion type [place] vs. transplanted heart: [place] heart Qualified Code(s): I25.119 - Atherosclerotic heart disease of [place] coronary artery with unspecified angina pectoris (3) Migraine Intractability: not intractable Migraine type: unspecified Status migrainosus presence: without status migrainosus Qualified Code(s): G43.909 - Migraine, unspecified, not intractable, without status migrainosus (4) 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 (5) Hypertension Hypertension type: essential hypertension Qualified Code(s): I10 - Essential (primary) hypertension
[2021-01-28] MEDS: PANTOprazole 40 MG TAB PO SCH (13:21)
[2021-01-28] MEDS: allopurinoL 100 MG TAB PO SCH (13:21)
[2021-01-28] MEDS: DOCUSATE SODIUM/SENNA 50/8.6MG TAB PO SCH ×2 (13:21→20:19)
[2021-01-28] MEDS: TOPIRAMATE 25 MG TAB PO SCH (13:21)
[2021-01-28] MEDS: VERAPAMIL HCL 120 MG TABCR PO SCH (13:21)
[2021-01-28] MEDS: carvediloL 3.125 MG TAB PO SCH ×2 (13:21→20:16)
[2021-01-28] MEDS: SUCRALFATE 1 GM/10 ML UDC PO SCH ×3 (13:22→20:16)
[2021-01-28] MEDS: EZETIMIBE 10 MG TABLET PO SCH (13:22)
[2021-01-28] MEDS: ACETAMINOPHEN 325 MG TAB PO PRN ×2 (14:41→19:38)
[2021-01-28] MEDS: CLINDAMYCIN 600 MG in DEXTROSE 5% 50 ML IV SCH ×2 (14:51→22:22)
[2021-01-28] MEDS ORDERED: NURSING DECISION MEDICATION ONE (19:26)
[2021-01-28] MEDS ORDERED: COUGH DROP (SUGAR FREE) LOZ 24 LOZ/1 BOX BUCCAL PRN (19:29)
[2021-01-28] MEDS: VALSARTAN 80 MG TAB PO SCH (19:39)
--- NOTE | 2021-01-29 06:15 | Surgery Progress Note ---
Date of Service January 29, 2021 Assessment & Plan (1) S/P laparoscopic cholecystectomy: Patient also had a significant adhesions-would not be surprising if he has a mild ileus Did experience urinary retention requiring Rossi catheter with over 700 cc recovered Pain controlled with p.o. pain meds We will check his a.m. labs Diet as tolerated , begin Brilinta this evening ask to see him re urinary retention monitor for progress today Admission and Anticipated Discharge Date Admission Date: January 28, 2021 Results & Data ([facility]) Vital Signs (Past 12 Hours) Vital Signs Temp Pulse Resp BP BP Pulse Ox 01/29/21 04:10 36.5 C 76 18 127/76 92 01/28/21 23:26 36.5 C 83 18 145/78 H 91 01/28/21 18:53 36.5 C 83 18 145/79 H 90 PG Care Time/CCT Total # of Minutes Spent Total Time Spent with Patient: Total time spent is greater than 50% in coordination of care (as documented) at patient's floor/unit and/or counseling patient: Coding Level of Care Code None Diagnoses S/P laparoscopic cholecystectomy Z90.49
--- NOTE | 2021-01-29 07:43 | Hospitalist Progress Note ---
Date of Service January 29, 2021 Assessment & Plan (1) Adenomyomatosis of gallbladder: * POD#1 s/p Laparoscopy with enterolysis, laparoscopic cholecystectomy and limited laparotomy with Dr. Duvall on 01/28. EBL 15cc * Pre-op h/h 14/43.3 * CBC with h/h 13/39.5 * Urinary retention post-operatively requiring Buitrago with 700cc drained and Urology consulted by primary service. * --Per general surgery, would not be surprised if he had mild ileus due to significant adhesions during op . Add miralax. Encourage ambulation * BMP stable and resumed valsartan 20mg daily * PT/OT/pain management/DVT prophylaxis per primary service * Brillinta resumed by general surgery (2) CAD (coronary artery disease): * CAD/HTN/HLD * No chest pain or discomfort postoperatively * Continue Carvdilol 3.125 mg PO BID * Continue ASA as Ok'd by primary surgeon through pre-op and postoperative phase * Can add on Brilinta when hemostasis is ensured and drain removed - RESUMED 01/29 * Continued Zetia- for HLD * Held ARB for 24 hours postoperatively- RESTARTED 01/29 (3) Hypertension: * Chronic. Stable -- BP 146/73 * Continued verapamil (for migraine), carvedilol BID. Resumed valsartan as above * Continue to monitor (4) Ischemic cardiomyopathy: * Last ECHO 2019- * no acute needs, optimal medical therapy as above (5) COPD (chronic obstructive pulmonary disease): * Emphysema * Continue Albuterol as LIT - PRN QID * Re-ordered Breo first dose 01/29/21 * Wean oxygen for SPO2 88-92 % * ICS * No acute needs, 96% on RA (6) Dyslipidemia: * As above, continue Zetia (7) CKD (chronic kidney disease) stage 3, GFR 30-59 ml/min: * Follow BMP in the morning * Avoid nephrotoxic medications, if needed minimize exposure time * Control BP as above * PO hydration as patient tolerates, supplement IVF for 24 hours post operatively (8) Migraine: * Continue topamax and Verapmil * No current needs (9) Acute urinary retention: * -- Had to have buitrago placed -- 700cc. Maintained. * Urology consulted -- recs to continue buitrago * Flomax started * F/u Urology (10) DVT prophylaxis: * Chemical prophylaxis per primary team * SCD's, ASA, early ambulation currently. * Brillinta also resumed today as above DIspo: continued inpatient stay Thank you for allowing hospitalist service to participate in the care of Mr Singleton. Hospitalist service will follow along. Please call with any questions/concerns. Admission and Anticipated Discharge Date Admission Date: January 28, 2021 Supervising Physician Co-Signing Physician Notes PA Supervision Note: I did not personally see or examine the patient today, but I verified all mccord points of MORGAN Ibarra's assessment and plan with the following exceptions/additions: None Subjective Patient evaluated this morning. Feeling well. Pain comes and goes but controlled with ordered medications. Primarily pain around RUQ incision and drain output decreased. Now passing gas and working on BM. Has been having urinary retention and needed placement of Buitrago. Eval by Urology this AM and plans to continue Buitrago until at least Thursday per patient account. No fever, chills, chest pain, shortness of breath, nausea, vomiting. Review of Systems Review of Systems: All systems reviewed & are unremarkable except as noted in HPI & below Physical Exam Physical Exam: General: awake, alert, no apparent distress Head: Normocephalic, atraumatic ENT: PERRL, EOMI, no pharyngeal exudate, mucous membranes moist, ecchymosis to surrounding L eye Neuro: AAO x 3, speech clear and appropriate, strength intact bilaterally 5/5, sensation intact and equal all extremities and dermatomes, no pronator drift Resp: equal rise and fall of the chest, no accessory muscle use, no heaves or thrills, Clear to auscultation, no w/c/r. Cardiac: RRR, cap refil <3 seconds. +pulses bilaterally. calves non-tender. no edema GI: +BS, soft, dressing c/d/i. surgical incisions look good. BALDEMAR with 10-15 serosanginous drainage. : has not voided post operatively Extremities: Normal inspection, no peripheral edema or erythema, calfs nontender to palpation Psych: Normal mood and affect Skin: no rash or erythema Results & Data Results & Data ([facility]) Vital Signs (Past 12 Hours) Vital Signs Temp Pulse Resp BP BP Pulse Ox 01/29/21 07:39 36.8 C 82 16 146/73 H 96 01/29/21 04:10 36.5 C 76 18 127/76 92 01/28/21 23:26 36.5 C 83 18 145/78 H 91 Laboratory Results 01/28/21 01/28/21 Range/Units 10:12 10:12 COVID-19 [facility] SARS-[facility]-2, RNA, NAAT NEGATIVE (NEGATIVE) 01/29/21 01/29/21 Range/Units 07:15 07:15 WBC 7.37 (4.8-10.8) K/uL RBC 4.52 L (4.7-6.1) M/uL Hgb 13.0 L (14.0-18.0) g/dL Hct 39.5 L (42-52) % MCV 87.4 (80-100) fL MCH 28.8 (25-34) pg MCHC 32.9 (32-36) g/dL RDW Std Deviation 48.8 H (36.4-46.3) fL RDW Coeff of Falguni 15.3 H (11.5-14.5) % Plt Count 187 (130-400) K/uL MPV 11.9 H (7.4-10.4) fL Immature Gran % (Auto) 0.3 % Neut % (Auto) 81.2 % Lymph % (Auto) 9.8 % [place] % (Auto) 8.3 % Eos % (Auto) 0.3 % Baso % (Auto) 0.1 % Neut # (Auto) 5.99 (1.4-6.5) K/uL Lymph # (Auto) 0.72 L (1.2-3.4) K/uL [place] # (Auto) 0.61 H (0.11-0.59) K/uL Eos # (Auto) 0.02 (0-0.5) K/uL Baso # (Auto) 0.01 (0-0.2) K/uL Immature Gran # (Auto) 0.02 (0.00-0.02) K/uL Sodium 140 (136-145) mmol/L Potassium 4.2 (3.5-5.1) mmol/L Chloride 111 H (98-107) mmol/L Carbon Dioxide 25 (21-32) mmol/L Anion Gap 4.0 (3-11) BUN 14 (7-18) mg/dl Creatinine 1.40 (0.6-1.4) mg/dl Est Cr Clr Drug Dosing 43.1 ml/min Est GFR ( Amer) 53.1 Est GFR (Non-Af Amer) 45.8 BUN/Creatinine Ratio 10.1 (10-20) Glucose 105 H (70-99) mg/dl Calcium 9.1 (8.5-10.1) mg/dl Phosphorus 3.3 (2.5-4.9) mg/dl Total Bilirubin 1.1 H (0.2-1) mg/dl Direct Bilirubin 0.2 (0-0.2) mg/dl AST 36 (15-37) U/L ALT 50 (12-78) U/L Alkaline Phosphatase 74 (45-117) U/L Total Protein 6.4 (6.4-8.2) gm/dl Albumin 3.2 L (3.4-5.0) gm/dl Globulin 3.2 (2.5-4.0) gm/dl Albumin/Globulin Ratio 1.0 (0.9-2) PG Care Time/CCT Total # of Minutes Spent Total Time Spent with Patient: Total time spent is greater than 50% in coordination of care (as documented) at patient's floor/unit and/or counseling patient: Coding Level of Care Code 25768 Subseq Hosp Care Lvl 2 Diagnoses Adenomyomatosis of gallbladder D13.5 CAD (coronary artery disease) I25.119 Associated angina: with unspecified angina Coronary Disease-Associated Artery/Lesion type: unspecified vessel or lesion type [place] vs. transplanted heart: pal[place] heart Hypertension I10 Hypertension type: essential hypertension Ischemic cardiomyopathy I25.5 COPD (chronic obstructive pulmonary disease) J43.9 COPD type: emphysema Emphysema type: unspecified Dyslipidemia E78.5 CKD (chronic kidney disease) stage 3, GFR 30-59 ml/min N18.30 Chronic kidney disease stage 3 subtype: unspecified whether 3a or 3b Migraine G43.909 Intractability: not intractable Migraine type: unspecified Status migrainosus presence: without status migrainosus Acute urinary retention R33.8 DVT prophylaxis Z29.9 (1) CKD (chronic kidney disease) stage 3, GFR 30-59 ml/min Chronic kidney disease stage 3 subtype: unspecified whether 3a or 3b Qualified Code(s): N18.30 - Chronic kidney disease, stage 3 unspecified (2) CAD (coronary artery disease) Associated angina: with unspecified angina Coronary Disease-Associated Artery/Lesion type: unspecified vessel or lesion type [place] vs. transplanted heart: [place] heart Qualified Code(s): I25.119 - Atherosclerotic heart disease of [place] coronary artery with unspecified angina pectoris (3) Migraine Intractability: not intractable Migraine type: unspecified Status migrainosus presence: without status migrainosus Qualified Code(s): G43.909 - Migraine, unspecified, not intractable, without status migrainosus (4) 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 (5) Hypertension Hypertension type: essential hypertension Qualified Code(s): I10 - Essential (primary) hypertension
[2021-01-29] MEDS: EZETIMIBE 10 MG TABLET PO SCH (07:58)
[2021-01-29] MEDS: carvediloL 3.125 MG TAB PO SCH ×2 (07:58→21:11)
[2021-01-29] MEDS: SUCRALFATE 1 GM/10 ML UDC PO SCH ×4 (07:58→21:10)
[2021-01-29] MEDS: TOPIRAMATE 25 MG TAB PO SCH (07:58)
[2021-01-29] MEDS: HYDROCODONE/ACETAMOPHEN 5/325MG TAB PO PRN ×3 (07:58→21:09)
[2021-01-29] MEDS: allopurinoL 100 MG TAB PO SCH (07:59)
[2021-01-29] MEDS: VERAPAMIL HCL 120 MG TABCR PO SCH (07:59)
[2021-01-29] MEDS: PANTOprazole 40 MG TAB PO SCH (07:59)
[2021-01-29] MEDS: ASPIRIN 81 MG ECTAB PO SCH (07:59)
[2021-01-29 08:00] LABS: Basophils # (auto) 0.01 K/uL (0-0.2); Basophils % (auto) 0.1 %; Eosinophils # (auto) 0.02 K/uL (0-0.5); Eosinophils % (auto) 0.3 %; Hematocrit (blood only) 39.5 % (42-52); Immature Granulocytes # (auto) 0.02 K/uL (0.00-0.02); Immature Granulocytes % (auto) 0.3 %; Lymphocytes # (auto) 0.72 K/uL (1.2-3.4); Lymphocytes % (auto) 9.8 %; Mean Corpuscular Hemoglobin 28.8 pg (25-34); Mean Corpuscular Hgb Conc 32.9 g/dL (32-36); Mean Corpuscular Volume 87.4 fL (80-100); Mean Platelet Volume 11.9 fL (7.4-10.4); Monocytes # (auto) 0.61 K/uL (0.11-0.59); Monocytes % (auto) 8.3 %; Neutrophils # (auto) 5.99 K/uL (1.4-6.5); Neutrophils % (auto) 81.2 %; Platelet Count 187 K/uL (130-400); RDW Coefficient of Variation 15.3 % (11.5-14.5); RDW Standard Deviation 48.8 fL (36.4-46.3); Red Blood Count 4.52 M/uL (4.7-6.1); White Blood Count 7.37 K/uL (4.8-10.8)
[2021-01-29] MEDS: DOCUSATE SODIUM/SENNA 50/8.6MG TAB PO SCH ×2 (08:00→21:14)
[2021-01-29] MEDS: MAGNESIUM HYDROXIDE SUSP 30 ML UDC PO SCH ×2 (08:00→21:12)
[2021-01-29 08:27] LABS: Albumin Level 3.2 gm/dl (3.4-5.0); BUN Creatinine Ratio 10.1 (10-20); Bilirubin Direct 0.2 mg/dl (0-0.2); Calcium 9.1 mg/dl (8.5-10.1); Creatinine Clr Calc Pharmacy 43.1 ml/min; Est GFR (African American) 53.1; Est GFR (Non-African American) 45.8; Potassium 4.2 mmol/L (3.5-5.1)
[2021-01-29 08:30] LABS: Bilirubin,Total 1.1 mg/dl (0.2-1); Globulin 3.2 gm/dl (2.5-4.0); Phosphorus 3.3 mg/dl (2.5-4.9); Total Protein 6.4 gm/dl (6.4-8.2)
--- NOTE | 2021-01-29 10:19 | Urology Consultation ---
Date of Consultation January 29, 2021 Assessment & Plan (1) Acute urinary retention: (2) S/P laparoscopic cholecystectomy: 85 year-old male patient, with multiple comorbidities, admitted status post laparoscopic cholecystectomy with Dr. Duvall. -Patient developed postoperative urinary retention requiring placement of buitrago catheter. -Urinary retention likely multifactorial including BPH, anesthesia. -Buitrago intact, draining clear yellow urine. -He is afebrile. -Labs reviewed - white count and creatinine stable. PSA in September 2020 appropriate for age. -Recommend maintaining catheter for 3-4 days. -Will start Tamsulosin today, one capsule at bedtime. Side effects of medication discussed. -Will arrange outpatient follow-up with urology service for voiding trial, likely Thursday. -Expected clinical course reviewed with patient, all questions answered. Thank you for allowing us to participate in the acute care of Mr. Singleton. Please reconsult us with additional questions, concerns or changes in patient status. History of Present Illness Reason for Consultation: Post op urinary retention Attending Physician: Benjamin Duvall MD, FACS History of Present Illness 85 year-old male patient, with past medical history significant for CKD, ischemic cardiomyopathy, hypertension, CAD s/p stent, COPD, gout, dyslipidemia, and additional problems listed below, admitted status post laparoscopy with enterolysis, laparoscopic cholecystectomy and limited laparotomy performed on 01/28/[address] Duvall. Post procedure, patient was noted to have postoperative acute urinary retention. He states he was unable to void and developed bladder discomfort/pressure. He was bladder scanned by nursing last evening for >700 ml. Buitrago catheter was subsequently placed with 775 ml urine return. Patient reports no difficulty with catheter placement. Patient tolerated buitrago catheter placement well without complications. Urology consulted for acute postoperative urinary retention. Patient states he followed with urology roughly 30 years ago, unsure of physician. He is currently not on any home medications for urinary pattern. Chart review: Afebrile Wbc 7.37 Hgb 13.0 Creatinine 1.40 PSA in September 2020 appropriate for age - 0.802. Patient examined at bedside. He is alert, awake, comfortable. He reports he is tolerating buitrago catheter well without difficulty. Buitrago draining clear yellow urine. He states he has required buitrago catheter placement in the past many years ago after surgical intervention. He does note some urinary frequency/urgency at baseline. Prior to hospitalization, he states he felt he was emptying his bladder well. Denies hematuria. Notes occasional dysuria to tip of penis at times. Typically one episode of nocturia per night on average. Currently denies dysuria. Denies bladder pain/pressure. Denies fevers or chills. Denies nausea or vomiting. Notes some discomfort to abdomen post procedure, however pain is tolerable. As previously mentioned, not on any home medications for urine pattern. Denies additional urologic concerns today. Allergies Allergy/AdvReac Type Severity Reaction Status Date / Time Cephalosporins Allergy Intermediate Rash Verified 01/22/21 11:07 fluticasone Allergy Intermediate Rash Verified 01/22/21 11:07 Iodinated Contrast Media Allergy Intermediate Hives Verified 01/22/21 11:07 Penicillins Allergy Intermediate Rash Verified 01/22/21 11:07 salmeterol Allergy Mild Rash Verified 01/22/21 11:07 cephalexin [From Keflex] Allergy Unknown Unknown Verified 01/22/21 11:07 pravastatin Allergy Unknown myalgias Verified 01/22/21 11:07 atorvastatin AdvReac Mild MUSCLE Verified 01/22/21 11:07 ACHES fluvastatin AdvReac Mild MUSCLE Verified 01/22/21 11:07 ACHES lisinopril AdvReac Mild Cough Verified 01/22/21 11:07 rosuvastatin AdvReac Mild MUSCLE Verified 01/22/21 11:07 ACHES Home Medications Medication Instructions Recorded Confirmed Type cholecalciferol (vitamin D3) 1,000 unit PO BID 06/25/18 01/28/21 History [Vitamin D3] nitroglycerin [Nitrostat] 1 tab SUBLINGUAL UD PRN 06/25/18 01/28/21 History aspirin [Ecotrin Low Strength] 81 mg PO QAM #30 tab 09/27/19 01/28/21 Rx pantoprazole 40 mg tablet,delayed 40 mg PO QAM 03/23/20 01/28/21 History release zinc acetate 50 mg (zinc) capsule 50 mg PO DAILY 03/23/20 01/28/21 History albuterol sulfate 90 mcg/actuation 2 puffs INH QID PRN g 06/12/20 01/28/21 History aerosol inhaler fluticasone furoate 100 1 inh INHALATION DAILY 06/12/20 01/28/21 History mcg-vilanterol 25 mcg/dose inhalation powder topiramate 25 mg tablet 25 mg PO QAM #90 tab 06/12/20 01/28/21 Rx verapamil 120 mg 24 hr 120 mg PO QAM #90 cap 06/12/20 01/28/21 Rx capsule,extended release ticagrelor 90 mg tablet 90 mg PO BID #180 tab 09/30/20 01/28/21 Rx carvedilol 3.125 mg tablet 3.125 mg PO BID #180 tab 11/26/20 01/28/21 Rx sucralfate 100 mg/mL oral 10 ml PO QID #1000 ml 01/02/21 01/28/21 Rx suspension allopurinol 100 mg PO QAM 01/15/21 01/28/21 History ezetimibe 10 mg tablet 10 mg PO QAM #90 tab 01/16/21 01/28/21 Rx valsartan 40 mg tablet 20 mg PO QAM #30 tab 01/22/21 01/28/21 Rx Patient History Medical History Asthma CAD (coronary artery disease) S/p 4 stents in 2016 S/p stent 09/24/19 to D1 Known occluded distal LAD per cardio records Cancer of lung 1999 LOBECTOMY. CHEMO AND RADIATION Cerebral aneurysm Followed by Neuro MRA 07/18/19= "Stable 2 mm aneurysm arising from the lateral margin of the left cavernous carotid. Stable 2 mm aneurysm arising from the ophthalmic portion of the right internal carotid." Per 06/12/20 neuro note- two tiny aneursyms- stable on recent MRI- do not warrant neurosurgeon referral at this time- will continue to monitor CKD (chronic kidney disease) stage 3, GFR 30-59 ml/min COPD (chronic obstructive pulmonary disease) Pulmonary [facility], [place] Dyslipidemia Hemiplegic migraine Followed by [place], [place]- stable at 06/12/20 appt (follow up in one year) WAS THOUGHT TO HAVE STROKE BUT HEMIPLEGIC MIGRAINE AND NO PROBLEMS SINCE Hypertension Ischemic cardiomyopathy EF 45-50% Cardiology, [place] Luis Alberto Laryngopharyngeal reflux Nasal bleeding plan surgery 01/18 to cauterize Neural hearing loss Pancreatic cyst Paroxysmal atrial tachycardia Asymptomatic per cardio Pulmonary emphysema Solitary pulmonary nodule STEMI (ST elevation myocardial infarction) 4 STENT 2015 1 STENT 09/24/19 Tinnitus of right ear Surgical History History of arthroplasty of left shoulder History of cardiac catheterization (~2016) 2016 [place] WITH 4 STENTS 2019 with 1 stent to D1- pt dx'ed with STEMI at that time FOLLOWS WITH DR SABILLON History of colonoscopy History of excision of mass neck 2018 Hx of cataract surgery right and left S/P appendectomy S/P excision of lipoma S/P laparoscopic cholecystectomy (01/28/21) Laparoscopy with enterolysis, laparoscopic cholecystectomy and limited laparotomy 01/28/21 Dr. Duvall S/P lobectomy of lung LEFT S/P total knee arthroplasty LEFT Stented coronary artery Family History Brother Cancer Hypertension Sister Cancer Hypertension Diabetes Mother Hypertension Diabetes Unknown Coronary heart disease Father Coronary heart disease Daughter Breast cancer Other Lung cancer Myocardial infarction Denies family history of Ovarian cancer Prostate cancer Hearing loss No family history of adverse response to anesthesia No family history of bleeding disorder Heart disease Allergies Colorectal cancer Stroke Asthma Social History Smoking Status: Never smoker Tobacco Type: Cigarettes Cigarettes Per Day: 10; Second Hand Exposure: No; Do You Dip or Chew Tobacco: No; Tobacco Cessation Education Requested by Patient: No Hx Alcohol Use: No Hx Substance Use: No Preferred Language: Macedonian Communication Ability: Effective Visual Impairment: No Limitations 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: Normal Inbound Call Center Representative Required: No Beliefs That Will Affect Care: None marital status: Current Living Situation: Spouse current occupational status: retired current occupation: retired Other Information That Helps Us Care for You: No Feels Safe at Home: Yes Safety Concerns: Feels Safe At This Time Childhood Exposure to Second-Hand Smoke: Yes caffeine: Yes Dental Care, Regularly: No Physical Activity Frequency: Does not Exercise Seatbelt Use: always Sunscreen Use: Yes Assistive Devices: Walker Review of Systems Constitutional: as per Subjective / HPI; no fever and no chills Eyes: no problem reported Ear, Nose, Mouth, Throat: no dizziness Respiratory: no cough and no dyspnea Cardiovascular: no chest pain and no edema Gastrointestinal: as per Subjective / HPI Genitourinary: + as per Subjective / HPI Neurologic: no dizziness Endocrine: no fatigue Hematologic / Lymphatic: no easy bleeding and no easy bruising Physical Exam Constitutional: well developed and well nourished; no acute distress and not ill appearing ENMT: Ears: no external ear abnormality Nose: no external nose abnormality Neck: normal visual inspection and trachea midline Respiratory: normal respiratory effort and able to speak in complete sentences; no respiratory distress and no audible wheezes Cardiovascular: Extremities: no calf tenderness and no edema Gastrointestinal (Abdomen): Inspection/Auscultation: abdomen normal to inspection; abdomen not distended Percussion/Palpation: no guarding Abdomen mildly firm to palpation. Musculoskeletal: Moves all extremities without difficulty. Skin: Ecchymosis/discoloration noted around left inner eyelid. Neurologic: moves all extremities and awake Psychiatric: Orientation: alert, oriented x 3 and cooperative Affect: euthymic affect Genitourinary: no CVA tenderness Buitrago catheter intact draining clear yellow urine. Results & Data ([facility]) Vital Signs (Past 12 Hours) Vital Signs Temp Pulse Resp BP BP Pulse Ox 01/29/21 07:39 36.8 C 82 16 146/73 H 96 01/29/21 04:10 36.5 C 76 18 127/76 92 01/28/21 23:26 36.5 C 83 18 145/78 H 91 PG Care Time/CCT Total # of Minutes Spent Total Time Spent with Patient: Total time spent is greater than 50% in coord ination of care (as documented) at patient's floor/unit and/or counseling patient: Coding Level of Care Code 79925 Initial Inpt Care Lvl 2 Diagnoses Acute urinary retention R33.8 S/P laparoscopic cholecystectomy Z90.49
[2021-01-29] MEDS: POLYETHYLENE (MIRALAX) 17 GM PACK PO SCH (10:52)
[2021-01-29] MEDS: FLUTICASONE/VILANTEROL 100/25MCG 14 PUFFS/INHALER INH SCH (12:26)
[2021-01-29] MEDS ORDERED: TAMSULOSIN HCL 0.4 MG CAP PO SCH (21:00)
[2021-01-29] MEDS: TICAGRELOR 90 MG TAB PO SCH (21:12)
[2021-01-30] MEDS: MAGNESIUM HYDROXIDE SUSP 30 ML UDC PO SCH (07:56)
[2021-01-30] MEDS: VALSARTAN 80 MG TAB PO SCH (07:56)
[2021-01-30] MEDS: carvediloL 3.125 MG TAB PO SCH (07:56)
[2021-01-30] MEDS: TOPIRAMATE 25 MG TAB PO SCH (07:56)
[2021-01-30] MEDS: PANTOprazole 40 MG TAB PO SCH (07:57)
[2021-01-30] MEDS: SUCRALFATE 1 GM/10 ML UDC PO SCH (07:57)
[2021-01-30] MEDS: ASPIRIN 81 MG ECTAB PO SCH (07:57)
[2021-01-30] MEDS: VERAPAMIL HCL 120 MG TABCR PO SCH (07:57)
[2021-01-30] MEDS: allopurinoL 100 MG TAB PO SCH (07:57)
[2021-01-30] MEDS: EZETIMIBE 10 MG TABLET PO SCH (07:57)
[2021-01-30] MEDS: TICAGRELOR 90 MG TAB PO SCH (07:57)
[2021-01-30] MEDS: FLUTICASONE/VILANTEROL 100/25MCG 14 PUFFS/INHALER INH SCH (07:58)
[2021-01-30] MEDS: POLYETHYLENE (MIRALAX) 17 GM PACK PO SCH (07:58)
[2021-01-30] MEDS: DOCUSATE SODIUM/SENNA 50/8.6MG TAB PO SCH (07:59)
--- NOTE | 2021-01-30 21:23 | Discharge Summary (DS) ---
PRINCIPAL DIAGNOSES: Biliary colic and small bowel adhesions. PROCEDURE: The patient underwent laparoscopic cholecystectomy and enterolysis. HISTORY OF PRESENT ILLNESS: The patient is an 85-year-old male who has been having abdominal pain, felt to be biliary colic, brought into the hospital for elective laparoscopic cholecystectomy on 01/28/2021. The patient had had previous surgery and likely had peritonitis from appendicitis. On entering the abdomen, we encountered significant adhesions of small bowel and omentum, which required enterolysis, which was somewhat difficult. After this was done, the gallbladder was removed, which was relatively straightforward. I did place some sutures in the serosa of his small bowel through the umbilical incision. Therefore, the patient was observed in the hospital and has done well with progress. He is felt stable for discharge home today on 01/30/2021 to be seen in the surgical clinic within 2 days. He also did have urinary retention requiring Rossi catheter, which has been kept in place and he is to see urology on Thursday.
== END 2021-01-30 09:00 | disposition home or self-care (01) ==
LOC: ASU 05:15 → INTOOBSV 08:50 → 3N 08:50

== ENCOUNTER 2021-01-31 07:22 | Inpatient (IN) ==
--- NOTE | 2021-01-31 07:33 | Emergency Department Note ---
Impression & Plan Pulmonary emboli, Embolism, pulmonary with infarction, Hemoptysis, Pulmonary hemorrhage ED Provider Note NAME: ESTUARDO PUGH AGE: 85 SEX: M : 1935 ARRIVES VIA: Ambulance INFORMANT: Patient, ED PROVIDER(S): Walt Bates MD Chief Complaint: SOB, cough, hemoptysis HPI: Patient had a recent admission for biliary colic and small bowel adhesions. The patient did have a laparoscopic cholecystectomy and anterior lysis completed by Dr. Duvall. The patient was discharged yesterday morning. Patient was to be seen in clinic on the . Patient did have some urinary retention which did require Rossi catheter and is to follow-up with urology tomorrow. Patient does present with shortness of breath. Patient states his shortness of breath has been chronic for many months. The patient does have a prior history of smoking and left-sided pneumonectomy. The patient noted that he has been coughing up small teaspoons of blood this morning. The patient denies any bloody stools or dark bowel movements. The patient denies any nausea or vomiting. The patient states he only noticed the hemoptysis this morning. The patient states that he does take ticagrelor and aspirin. The patient does have a known history of cardiac stents. The patient denies any chest pains. Patient denies fevers or chills. Patient states that the symptoms are worse with activity but improved at rest. Patient states that oxygen seems to improve. Patient states that he brought up his shortness of breath as an inpatient during his most recent hospital stay and he was just placed on oxygen. ROS: See HPI for pertinent positives and negatives. A total of 10 systems were reviewed and otherwise negative. Past medical history: See below Surgical history: See below Social history: See below Physical Exam: GENERAL: Appears stated age, wearing a mask, nasal cannula in place. NAD, non- toxic. EYE EXAM: Normal conjunctiva. PERRL, no anisocoria and EOM's grossly intact w/o pain. NECK: Supple, no nuchal rigidity, no adenopathy, non-tender. No signs of meningismus. LUNGS: Decreased breath sounds left chest. Normal chest wall mechanics. HEART: NSR, no MRG. ABDOMEN: Abdomen soft, upper and right-sided abdominal pain, bandages in place, no obvious drainage, BALDEMAR drain in place with serosanguineous drainage no purulent drainage, normo-active bowel sounds, no masses, no rebound or guarding. BACK: No CVA TTP. SKIN: No rashes and no bruising. : Rossi in place draining straw-colored urine. UPPER EXTREMITIES: Upper extremities are grossly normal. LOWER EXTREMITIES: Grossly normal, no edema. Negative Homans' sign bilaterally. NEURO EXAM: A&O x3, cranial nerves II-XII grossly intact, normal speech, moves all 4 extremities on command w/o issue. Differential diagnoses: Reactive airway disease, pneumonia, pneumothorax, COPD, CHF, infections, cardiac ischemia, pulmonary embolism, musculoskeletal, gastrointestinal, as well as other pathologies. Course: Patient was seen and evaluated the bedside. Full history physical exam was performed. EKG: Indication: Shortness of breath Imaging Studies: See below Cardiac monitoring: An order was placed for continuous cardiac monitoring. The monitor shows a rate of 97 with sinus rhythm. MDM: Patient did present with concern for hemoptysis and shortness of breath. Blood work is obtained along with CT of the chest abdomen pelvis. Patient blood work shows a normal white count with a hemoglobin of 13.7. Platelet count is unremarkable. Patient's kidney function unremarkable. Patient troponin not detectable. Bilirubin 1.9. The patient did have a recent cholecystectomy. Urinalysis showed the possibility of infection. Flu Covid RSV negative. The patient CT angiography of the chest did show concern for PE, pulmonary infarct as well as the possibility of pulmonary hemorrhage. Given this concern I did speak with the on-call manager marketing communications Dr. Velazquez. We did discuss that the patient would likely benefit from treatment of his PEs but need to be cautious given the concern for hemorrhage. He did recommend low-dose heparin with no bolus. He is low thought that if the patient would benefit from IR the patient may benefit from transfer. I subsequently did speak with the patient's daughter, Neda Treviño, who if the patient needed to be transferred she would prefer that he go to [place]. She is the medical POA. I also did briefly discussed the patient with Dr. Duvall the recent surgeon for cholecystectomy. CT abdomen pelvis did not show any new concerning findings. Did initiate a transfer call and subsequently spoke with the hospitalist Dr. Hood as well as the interventional radiologist Dr. Rossi. After discussing the patient's case interventional radiology said that 1 they would not likely be able to do catheter directed embolization of a bleeding vessel they are in the lungs. They also discussed that the patient would likely not be a candidate for embolectomy. They did state that if the patient does have DVT in the lower extremities that he may benefit from an IVC filter at which point they might be of benefit. Given the current lack of may be benefit from transfer at this time they recommended inpatient stay at [facility]. I did speak with the on-call hospitalist as well as with the patient's primary kiln operator Dr. Sabillon. Patient was admitted by Dr. Loredo. Dr. Sabillon did state that the patient can hold his aspirin but should continue his ticagrelor unless the patient has continued proclivity to bleed at which point it could be stopped i.e. risk- benefit. I did discuss with this with the patient. I also did rediscuss everything with the patient's daughter. I also did discuss this again with Dr. Velazquez who recommended some IV Lasix and antibiotics. These were ordered. These antibiotics would likely cover chest as well as urinary sources. Patient was admitted by the medicine service Critical Care: I have personally spent 127 minutes of critical care time in direct management of this patient. This includes bedside care, interpretation of diagnostic studies, and testing, discussion with consultants, patient, and family members, and other require inpatient management activities. This 127 minutes is in excess of all separately billable procedures. Past Med/Surg History Medical History (Updated 01/31/21 @ 14:11 by Walt Bates MD) Asthma CAD (coronary artery disease) S/p 4 stents in 2016 S/p stent 09/24/19 to D1 Known occluded distal LAD per cardio records Cancer of lung 1999 LOBECTOMY. CHEMO AND RADIATION Cerebral aneurysm Followed by Neuro MRA 07/18/19= "Stable 2 mm aneurysm arising from the lateral margin of the left cavernous carotid. Stable 2 mm aneurysm arising from the ophthalmic portion of the right internal carotid." Per 06/12/20 neuro note- two tiny aneursyms- stable on recent MRI- do not warrant neurosurgeon referral at this time- will continue to monitor CKD (chronic kidney disease) stage 3, GFR 30-59 ml/min COPD (chronic obstructive pulmonary disease) Pulmonary [facility] [place] Dyslipidemia Hemiplegic migraine Followed by Neuro, [place]- stable at 06/12/20 appt (follow up in one year) WAS THOUGHT TO HAVE STROKE BUT HEMIPLEGIC MIGRAINE AND NO PROBLEMS SINCE Hypertension Ischemic cardiomyopathy EF 45-50% CardiologyZANDER Laryngopharyngeal reflux Nasal bleeding plan surgery 01/18 to cauterize Neural hearing loss Pancreatic cyst Paroxysmal atrial tachycardia Asymptomatic per cardio Pulmonary embolism and infarction Pulmonary emphysema Solitary pulmonary nodule STEMI (ST elevation myocardial infarction) 4 STENT 2015 1 STENT 09/24/19 Tinnitus of right ear Surgical History History of arthroplasty of left shoulder History of cardiac catheterization (~2015) 2016 [facility] WITH 4 STENTS 2018 with 1 stent to D1- pt dx'ed with STEMI at that time FOLLOWS WITH DR SABILLON History of colonoscopy History of excision of mass neck 2017 Hx of cataract surgery right and left S/P appendectomy S/P excision of lipoma S/P laparoscopic cholecystectomy (01/28/21) Laparoscopy with enterolysis, laparoscopic cholecystectomy and limited laparotomy 01/28/21 Dr. Duvall S/P lobectomy of lung LEFT S/P total knee arthroplasty LEFT Stented coronary artery Family History Brother Cancer Hypertension Sister Cancer Hypertension Diabetes Mother Hypertension Diabetes Unknown Coronary heart disease Father Coronary heart disease Daughter Breast cancer Other Lung cancer Myocardial infarction Denies family history of Ovarian cancer Prostate cancer Hearing loss No family history of adverse response to anesthesia No family history of bleeding disorder Heart disease Allergies Colorectal cancer Stroke Asthma Social History Smoking Status: Former smoker Tobacco Type: Cigarettes Cigarettes Per Day: 10; Second Hand Exposure: No; Hx Alcohol Use: No Hx Substance Use: No Preferred Language: Danish Communication Ability: Effective Visual Impairment: No Limitations 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: Normal Parking Enforcement Manager Required: No Beliefs That Will Affect Care: None marital status: Current Living Situation: Spouse current occupational status: retired current occupation: retired Feels Safe at Home: Yes Childhood Exposure to Second-Hand Smoke: Yes caffeine: Yes Dental Care, Regularly: No Physical Activity Frequency: Does not Exercise Seatbelt Use: always Sunscreen Use: Yes Assistive Devices: None Allergies Allergies Allergy/AdvReac Type Severity Reaction Status Date / Time Cephalosporins Allergy Intermediate Rash Verified 01/22/21 11:07 fluticasone Allergy Intermediate Rash Verified 01/22/21 11:07 Iodinated Contrast Media Allergy Intermediate Hives Verified 01/22/21 11:07 Penicillins Allergy Intermediate Rash Verified 01/22/21 11:07 salmeterol Allergy Mild Rash Verified 01/22/21 11:07 cephalexin [From Keflex] Allergy Unknown Unknown Verified 01/22/21 11:07 pravastatin Allergy Unknown myalgias Verified 01/22/21 11:07 atorvastatin AdvReac Mild MUSCLE Verified 01/22/21 11:07 ACHES fluvastatin AdvReac Mild MUSCLE Verified 01/22/21 11:07 ACHES lisinopril AdvReac Mild Cough Verified 01/22/21 11:07 rosuvastatin AdvReac Mild MUSCLE Verified 01/22/21 11:07 ACHES Home Meds Home Medications Medication Instructions Recorded Confirmed cholecalciferol (vitamin D3) 1,000 unit PO BID 06/25/18 01/31/21 [Vitamin D3] nitroglycerin [Nitrostat] 1 tab SUBLINGUAL UD PRN 06/25/18 01/31/21 pantoprazole 40 mg tablet,delayed 40 mg PO QAM 03/23/20 01/31/21 release zinc acetate 50 mg (zinc) capsule 50 mg PO DAILY 03/23/20 01/31/21 albuterol sulfate 90 mcg/actuation 2 puffs INH QID PRN g 06/12/20 01/31/21 aerosol inhaler fluticasone furoate 100 1 inh INHALATION DAILY 06/12/20 01/31/21 mcg-vilanterol 25 mcg/dose inhalation powder allopurinol 100 mg PO QAM 01/15/21 01/31/21 Previous Rx's Medication Instructions Recorded aspirin [Ecotrin Low Strength] 81 mg PO QAM #30 tab 09/27/19 topiramate 25 mg tablet 25 mg PO QAM #90 tab 06/12/20 verapamil 120 mg 24 hr 120 mg PO QAM #90 cap 06/12/20 capsule,extended release ticagrelor 90 mg tablet 90 mg PO BID #180 tab 09/30/20 carvedilol 3.125 mg tablet 3.125 mg PO BID #180 tab 11/26/20 sucralfate 100 mg/mL oral 10 ml PO QID #1000 ml 01/02/21 suspension ezetimibe 10 mg tablet 10 mg PO QAM #90 tab 01/16/21 valsartan 40 mg tablet 20 mg PO QAM #30 tab 01/22/21 hydrocodone-acetaminophen 1 - 2 tab PO Q6H PRN #30 tab 01/30/21 Results & Data (ED) Vital Signs Vital Signs - 24 hr 01/31/21 07:37 01/31/21 08:08 01/31/21 09:26 Temperature 36.7 C Temperature Source Oral Pulse Rate 97 H 102 H Pulse Rate from SpO2 Sensor 102 H Respiratory Rate 20 20 Blood Pressure 162/85 H 175/85 H Blood Pressure Mean 110 115 Pulse Oximetry 96 98 96 Oxygen Delivery Method Room Air Nasal Cannula Oxygen Flow Rate 2 2 Sepsis Recent Fever Within 48 Hours No Sepsis New/Unexplained Change in Mental Status N/A Sepsis Action Taken by Nursing No Action Required 01/31/21 10:26 01/31/21 10:30 01/31/21 11:00 Temperature Temperature Source Pulse Rate 97 H 99 H 96 H Pulse Rate from SpO2 Sensor 96 H 98 H 97 H Respiratory Rate 20 20 21 Blood Pressure 142/81 H 159/85 H 158/86 H Blood Pressure Mean 101 109 110 Pulse Oximetry 97 96 98 Oxygen Delivery Method Oxygen Flow Rate 2 2 Sepsis Recent Fever Within 48 Hours Sepsis New/Unexplained Change in Mental Status Sepsis Action Taken by Nursing 01/31/21 11:01 01/31/21 11:40 Temperature Temperature Source Pulse Rate 98 H 106 H Pulse Rate from SpO2 Sensor 99 H Respiratory Rate 18 20 Blood Pressure Blood Pressure Mean Pulse Oximetry 98 Oxygen Delivery Method Oxygen Flow Rate Sepsis Recent Fever Within 48 Hours Sepsis New/Unexplained Change in Mental Status Sepsis Action Taken by Care Home Medications Current Medication List: was personally reviewed by me Laboratory Data Attestation: I reviewed the patient's lab results. Result diagrams: 01/31/21 08:00 01/31/21 08:00 Lab Results 01/31/21 01/31/21 01/31/21 Range/Units 08:00 08:00 08:00 WBC 7.60 (4.8-10.8) K/uL RBC 4.72 (4.7-6.1) M/uL Hgb 13.7 L (14.0-18.0) g/dL POC Hgb (14.0-18.0) g/dl Hct 40.6 L (42-52) % POC Hct (42-52) % MCV 86.0 (80-100) fL MCH 29.0 (25-34) pg MCHC 33.7 (32-36) g/dL RDW Std Deviation 49.7 H (36.4-46.3) fL RDW Coeff of Falguni 15.4 H (11.5-14.5) % Plt Count 201 (130-400) K/uL MPV 11.5 H (7.4-10.4) fL Immature Gran % (Auto) 0.3 % Neut % (Auto) 79.0 % Lymph % (Auto) 8.7 % [place] % (Auto) 10.8 % Eos % (Auto) 1.1 % Baso % (Auto) 0.1 % Neut # (Auto) 6.01 (1.4-6.5) K/uL Lymph # (Auto) 0.66 L (1.2-3.4) K/uL [place] # (Auto) 0.82 H (0.11-0.59) K/uL Eos # (Auto) 0.08 (0-0.5) K/uL Baso # (Auto) 0.01 (0-0.2) K/uL Immature Gran # (Auto) 0.02 (0.00-0.02) K/uL PT 10.6 (9.0-12.0) Seconds INR 1.0 (0.9-1.1) POC Sodium (135-144) mmol/L Sodium 138 (136-145) mmol/L POC Potassium (3.3-5.0) mmol/L Potassium 3.8 (3.5-5.1) mmol/L POC Chloride (101-112) mmol/L Chloride 108 H (98-107) mmol/L Carbon Dioxide 26 (21-32) mmol/L POC Total CO2 (24-31) mmol/L Anion Gap 4.0 (3-11) POC Anion Gap (16-25) mmol/L POC BUN (7-18) mg/dl BUN 15 (7-18) mg/dl Creatinine 1.31 (0.6-1.4) mg/dl POC Creatinine (0.6-1.3) mg/dl Est Cr Clr Drug Dosing 46.1 ml/min Est GFR ( Amer) 57.5 Est GFR (Non-Af Amer) 49.6 BUN/Creatinine Ratio 11.5 (10-20) Glucose 95 (70-99) mg/dl POC Glucose (other) (70-99) mg/dl Calcium 9.2 (8.5-10.1) mg/dl POC Ioniz Calcium Best (1.12-1.32) mmol/l Magnesium 2.2 (1.8-2.4) mg/dl Total Bilirubin 1.9 H (0.2-1) mg/dl AST 22 (15-37) U/L ALT 37 (12-78) U/L Alkaline Phosphatase 80 (45-117) U/L Troponin I < 0.015 (0-0.045) ng/ml NT-Pro-B Natriuret Pep (0-1800) pg/ml Total Protein 7.2 (6.4-8.2) gm/dl Albumin 3.2 L (3.4-5.0) gm/dl Globulin 4.0 (2.5-4.0) gm/dl Albumin/Globulin Ratio 0.8 L (0.9-2) TSH 2.220 (0.300-4.500) uIu/ml Urine Color Urine Appearance (Clear) Urine pH (4.5-7.5) Ur Specific [place] (1.000-1.030) Urine Protein (Negative) Urine Glucose (UA) (Negative) Urine Ketones (Negative) Urine Blood (Negative) Urine Nitrite (Negative) Urine Bilirubin (Negative) Urine Urobilinogen (Negative) Ur Leukocyte Esterase (Negative) Urine WBC (Auto) (0-5) /hpf Urine RBC (Auto) (0-4) /hpf U Hyaline Cast (Auto) (0-5) /lpf U Epithel Cells (Auto) (0-5) /lpf Urine Bacteria (Auto) (Negative) Ur Renal Epithelial Cell Urine Yeast 01/31/21 01/31/21 01/31/21 Range/Units 08:00 08:00 08:15 WBC (4.8-10.8) K/uL RBC (4.7-6.1) M/uL Hgb (14.0-18.0) g/dL POC Hgb 14.6 (14.0-18.0) g/dl Hct (42-52) % POC Hct 43 (42-52) % MCV (80-100) fL MCH (25-34) pg MCHC (32-36) g/dL RDW Std Deviation (36.4-46.3) fL RDW Coeff of Falguni (11.5-14.5) % Plt Count (130-400) K/uL MPV (7.4-10.4) fL Immature Gran % (Auto) % Neut % (Auto) % Lymph % (Auto) % [place] % (Auto) % Eos % (Auto) % Baso % (Auto) % Neut # (Auto) (1.4-6.5) K/uL Lymph # (Auto) (1.2-3.4) K/uL [place] # (Auto) (0.11-0.59) K/uL Eos # (Auto) (0-0.5) K/uL Baso # (Auto) (0-0.2) K/uL Immature Gran # (Auto) (0.00-0.02) K/uL PT (9.0-12.0) Seconds INR (0.9-1.1) POC Sodium 139 (135-144) mmol/L Sodium (136-145) mmol/L POC Potassium 4.1 (3.3-5.0) mmol/L Potassium (3.5-5.1) mmol/L POC Chloride 105 (101-112) mmol/L Chloride (98-107) mmol/L Carbon Dioxide (21-32) mmol/L POC Total CO2 27 (24-31) mmol/L Anion Gap (3-11) POC Anion Gap 12.0 L (16-25) mmol/L POC BUN 18 (7-18) mg/dl BUN (7-18) mg/dl Creatinine (0.6-1.4) mg/dl POC Creatinine 1.3 (0.6-1.3) mg/dl Est Cr Clr Drug Dosing ml/min Est GFR ( Amer) Est GFR (Non-Af Amer) BUN/Creatinine Ratio (10-20) Glucose (70-99) mg/dl POC Glucose (other) 97 (70-99) mg/dl Calcium (8.5-10.1) mg/dl POC Ioniz Calcium Best 1.23 (1.12-1.32) mmol/l Magnesium (1.8-2.4) mg/dl Total Bilirubin (0.2-1) mg/dl AST (15-37) U/L ALT (12-78) U/L Alkaline Phosphatase (45-117) U/L Troponin I (0-0.045) ng/ml NT-Pro-B Natriuret Pep 1812 H (0-1800) pg/ml Total Protein (6.4-8.2) gm/dl Albumin (3.4-5.0) gm/dl Globulin (2.5-4.0) gm/dl Albumin/Globulin Ratio (0.9-2) TSH (0.300-4.500) uIu/ml Urine Color Yellow Urine Appearance Clear (Clear) Urine pH 7.5 (4.5-7.5) Ur Specific [place] 1.013 (1.000-1.030) Urine Protein Negative (Negative) Urine Glucose (UA) Negative (Negative) Urine Ketones Negative (Negative) Urine Blood 3+ H (Negative) Urine Nitrite Negative (Negative) Urine Bilirubin Negative (Negative) Urine Urobilinogen Negative (Negative) Ur Leukocyte Esterase 2+ H (Negative) Urine WBC (Auto) 5-10 H (0-5) /hpf Urine RBC (Auto) 5-10 H (0-4) /hpf U Hyaline Cast (Auto) 1-5 (0-5) /lpf U Epithel Cells (Auto) >30 H (0-5) /lpf Urine Bacteria (Auto) Negative (Negative) Ur Renal Epithelial Cell Not Reportable Urine Yeast Not Reportable Administered Medications Heparin Sodium/Dextrose (Heparin Sodium/Dextrose) 25,000 units in 500 mls @ 0.02 mls/hr IV .Q24H [facility]; Protocol Stop: 03/02/21 10:59 Last Admin: 01/31/21 11:53 Dose: 950 units/hr, 19 mls/hr Documented by: [id number] Cosigned by: [id number] Discontinued Medications Diphenhydramine HCl (Diphenhydramine 50 Mg/Ml Vial) 25 mg IV NOW STA Stop: 01/31/21 08:06 Last Admin: 01/31/21 08:55 Dose: 25 mg Documented by: [id number] Furosemide (Furosemide 40 Mg/4 Ml Vial) 20 mg IV NOW STA Stop: 01/31/21 10:47 Last Admin: 01/31/21 11:44 Dose: 20 mg Documented by: [id number] Levofloxacin/Dextrose (Levaquin/D5w) 750 mg in 150 mls @ 100 mls/hr IV NOW STA Stop: 01/31/21 12:30 Last Admin: 01/31/21 12:46 Dose: Not Given Documented by: [id number] Ioversol (Optiray 350 500ml) 100 ml IV ONCE ONE Stop: 01/31/21 09:27 Last Admin: 01/31/21 09:27 Dose: 100 ml Documented by: [id number] Imaging Data Radiologist's Impression: Abdomen/Pelvis CT 01/31/21 07:38 CT OF THE ABDOMEN AND PELVIS WITH CONTRAST CLINICAL HISTORY: Recent laparoscopic cholecystectomy enterolysis. COMPARISON STUDY: CT of the abdomen and pelvis December 16, 2020. Abdominal ultrasound January 03, 2021. TECHNIQUE: Following IV administration of 100 mL of Optiray, axial images of the abdomen and pelvis were obtained from the lung bases to the proximal femurs. Images were reviewed in the axial, sagittal, and coronal planes. IV contrast was administered without complication. Automated exposure control was utilized for the study. A dose lowering technique was utilized adhering to the principles of ALARA. CT DOSE: 836.76 mGy.cm FINDINGS: Please note that the chest CT will be reported separately. Chest CT better depicted right sided pulmonary emboli with a small right pleural effusion and right lung airspace opacity. Enlarged right hilar lymph node is noted. There are postoperative findings within the left hemithorax. Surgical drain is in place. Note is made of a 2.8 cm pocket of gas with trace fluid within the cholecystectomy bed. This is within normal limits in the early postoperative setting. There is no biliary ductal dilatation. There is no pancreatic ductal dilatation. A 4 cm hypodense pancreatic head lesion is similar to CT of December 16, 2020. Multiple bilateral renal cysts are noted. No hydronephrosis. Skin margaret from cholecystectomy are noted with minimal subcutaneous infiltration and several locules of gas within the subcutaneous tissues. Rossi balloon is in place. There is no evidence for a bowel obstruction. The caliber and wall thickness of small and large bowel are normal. There is a moderate amount of poorly formed stool within the right colon. IMPRESSION: 1. Small pocket of gas with trace fluid within the cholecystectomy bed which is within normal limits in the early postoperative setting. 2. No evidence for a bowel obstruction. 3. Multiple right-sided pulmonary emboli, a small right pleural effusion and right lung airspace opacity which are better depicted on the chest CT. 4. 4 cm cystic pancreatic head lesion, similar to prior exam. This favors a serous cystadenoma although remains indeterminate. ACT 112: Negative or not required by law. Electronically signed by: Dalton Moreno M.D. 01/31/2021 10:04 AM Chest CTA 01/31/21 07:38 CT ANGIOGRAM OF THE CHEST CLINICAL HISTORY: Hemoptysis. Possible acute pulmonary embolism. COMPARISON STUDY: Noncontrast chest CT dated 01/08/2021 TECHNIQUE: Following the IV administration of 100 mL of Optiray, CT angiogram of the thorax was performed from the thoracic inlet to the lung bases utilizing the pulmonary embolus protocol. Images are reviewed in the axial, sagittal, and coronal planes. IV contrast was administered without complication. MIP imaging was performed. A dose lowering technique was utilized adhering to the principles of ALARA. CT DOSE: FINDINGS: There is mild right hilar lymphadenopathy. There was no evidence of thoracic aortic dilatation. There are right lower lobe and right upper lobe pulmonary artery filling defects indicative of acute pulmonary embolism. There is a small right pleural effusion. There are left pleural calcifications. There are postsurgical changes of a left sided lobectomy. There is severe pulmonary emphysema. There are new groundglass opacities within the right upper lobe, possibly representing hemorrhage given history of hemoptysis and pulmonary embolism. T here are dependent right lower lobe opacities, possibly representing an area of pulmonary infarction. IMPRESSION: 1. Right upper lobe and right lower lobe pulmonary artery filling defects indicative of acute pulmonary embolism 2. Postsurgical changes on the left 3. Severe emphysema 4. Small right pleural effusion 5. Right upper lobe groundglass opacities, likely representing hemorrhage given history of hemoptysis and pulmonary embolism 6. Right lower lung zone groundglass opacities, possibly representing area of pulmonary infarction 7. Mild right hilar adenopathy. ACT 112: Negative or not required by law. Electronically signed by: Ortega Nino M.D. 01/31/2021 9:50 AM Chest X-Ray 01/31/21 07:38 XR chest 1V portable CLINICAL HISTORY: weakness COMPARISON STUDY: Chest CT January 09, 2012. Chest radiograph January 18, 2021. FINDINGS: Postoperative findings within the left hemithorax with volume loss are noted. Left paramediastinal irregular opacity is unchanged and favors postradiation change. There is emphysema. No pneumothorax is present. No pleural effusion is identified. There has been interval development of moderate right midlung opacity. There may be right basilar opacity is well. IMPRESSION: 1. Interval development of moderate right lung airspace opacity suggestive of pneumonia. 2. Stable postoperative findings within the left hemithorax. 3. Emphysema. ACT 112: Negative or not required by law. Electronically signed by: Dalton Moreno M.D. 01/31/2021 8:20 AM Venous Doppler Study 01/31/21 11:21 BILATERAL LOWER EXTREMITY VENOUS DOPPLER CLINICAL HISTORY: assess for DVT following Pulmonary embolism COMPARISON STUDY: No previous studies for comparison. TECHNIQUE: Sonography of the deep venous system of the bilateral lower extremities was performed. Compression and augmentation were evaluated. FINDINGS: The bilateral common femoral, superficial femoral and popliteal veins were compressible. Augmentation was normal. Flow was shown within the deep calf vessels. IMPRESSION: No evidence of deep venous thrombus within the bilateral lower extremities. ACT 112: Negative or not required by law. Electronically signed by: Dalton Moreno M.D. 01/31/2021 12:41 PM Discharge Plan Visit Data Chief Complaint: Cough ED Provider: Walt Bates Discharge Problem: Pulmonary emboli, Embolism, pulmonary with infarction, Hemoptysis, Pulmonary hemorrhage Patient Disposition: Admitted As Inpatient Discharge Instructions Interventions: ED Discharge Assessment Last Done: 01/31/21 13:16 Discharge Problem: Pulmonary emboli Qualifiers: Pulmonary embolism type: unspecified Chronicity: acute Acute cor pulmonale presence: unspecified Qualified Code(s): I26.99 - Other pulmonary embolism without acute cor pulmonale
[2021-01-31] MEDS ORDERED: diphenhydrAMINE 50 MG/ML VIAL IV STA (08:05)
--- NOTE | 2021-01-31 08:21 | XRay Report ---
XR chest 1V portable CLINICAL HISTORY: weakness COMPARISON STUDY: Chest CT January 09, 2012. Chest radiograph January 18, 2021. FINDINGS: Postoperative findings within the left hemithorax with volume loss are noted. Left paramedi astinal irregular opacity is unchanged and favors postradiation change. There is emphysema. No pneumo thorax is present. No pleural effusion is identified. There has been interval development of moderate right midlung opacity. There may be right basilar opacity is well. IMPRESSION: 1. Interval development of moderate right lung airspace opacity suggestive of pneumonia. 2. Stable postoperative findings within the left hemithorax. 3. Emphysema. ACT 112: Negative or not required by law. Electronically signed by: Dalton Moreno M.D. 01/31/2021 8:20 AM
[2021-01-31 08:27] LABS: iSTAT Creatinine 1.3 mg/dl (0.6-1.3); iSTAT Hemoglobin 14.6 g/dl (14.0-18.0); iSTAT Ionized Calcium 1.23 mmol/l (1.12-1.32); iSTAT Potassium 4.1 mmol/L (3.3-5.0)
[2021-01-31 08:30] LABS: Basophils # (auto) 0.01 K/uL (0-0.2); Basophils % (auto) 0.1 %; Eosinophils # (auto) 0.08 K/uL (0-0.5); Eosinophils % (auto) 1.1 %; Hematocrit (blood only) 40.6 % (42-52); Hemoglobin 13.7 g/dL (14.0-18.0); Immature Granulocytes # (auto) 0.02 K/uL (0.00-0.02); Immature Granulocytes % (auto) 0.3 %; Lymphocytes # (auto) 0.66 K/uL (1.2-3.4); Lymphocytes % (auto) 8.7 %; Mean Corpuscular Hgb Conc 33.7 g/dL (32-36); Mean Platelet Volume 11.5 fL (7.4-10.4); Monocytes # (auto) 0.82 K/uL (0.11-0.59); Monocytes % (auto) 10.8 %; Neutrophils # (auto) 6.01 K/uL (1.4-6.5); Platelet Count 201 K/uL (130-400); RDW Coefficient of Variation 15.4 % (11.5-14.5); RDW Standard Deviation 49.7 fL (36.4-46.3); Red Blood Count 4.72 M/uL (4.7-6.1)
[2021-01-31 08:31] LABS: Prothrombin Time 10.6 Seconds (9.0-12.0)
[2021-01-31 08:51] LABS: Alanine Aminotransferase 37 U/L (12-78); Albumin Level 3.2 gm/dl (3.4-5.0); Aspartate Aminotransferase 22 U/L (15-37); BUN Creatinine Ratio 11.5 (10-20); Blood Urea Nitrogen 15 mg/dl (7-18); Calcium 9.2 mg/dl (8.5-10.1); Carbon Dioxide 26 mmol/L (21-32); Chloride 108 mmol/L (98-107); Creatinine Clr Calc Pharmacy 46.1 ml/min; Est GFR (African American) 57.5; Est GFR (Non-African American) 49.6; Glucose 95 mg/dl (70-99); Magnesium 2.2 mg/dl (1.8-2.4); Potassium 3.8 mmol/L (3.5-5.1); Sodium 138 mmol/L (136-145)
[2021-01-31 09:00] LABS: Influenza A virus by PCR Negative (Neg); Influenza B virus by PCR Negative (Neg); RSV by PCR Negative (Neg); SARS CoV2 RNA(COVID-19) InHosp NEGATIVE (Negative)
[2021-01-31 09:03] LABS: Albumin Globulin Ratio 0.8 (0.9-2); Alkaline Phosphatase 80 U/L (45-117); Bilirubin,Total 1.9 mg/dl (0.2-1); Total Protein 7.2 gm/dl (6.4-8.2); Troponin I < 0.015 ng/ml (0-0.045)
[2021-01-31 09:11] LABS: Appearance Urine Clear (Clear); Bacteria Urine Automated Negative (Negative); Bilirubin Urine Negative (Negative); Blood Urine 3+ (Negative); Color Urine Yellow; Epithelial Cell Urine Auto >30 /lpf (0-5); Glucose Urine UA Negative (Negative); Ketones Urine Negative (Negative); Leukocyte Esterase Urine 2+ (Negative); Nitrite Urine Negative (Negative); Protein Urine Negative (Negative); Specific Gravity Urine 1.013 (1.000-1.030); Urobilinogen Urine Negative (Negative); pH Urine 7.5 (4.5-7.5)
[2021-01-31] MEDS ORDERED: OPTIRAY 350 500ml IV ONE (09:26)
--- NOTE | 2021-01-31 09:51 | CT Scan Report ---
CT ANGIOGRAM OF THE CHEST CLINICAL HISTORY: Hemoptysis. Possible acute pulmonary embolism. COMPARISON STUDY: Noncontrast chest CT dated 01/08/2021 TECHNIQUE: Following the IV administration of 100 mL of Optiray, CT angiogram of the thorax was perfo rmed from the thoracic inlet to the lung bases utilizing the pulmonary embolus protocol. Images are r eviewed in the axial, sagittal, and coronal planes. IV contrast was administered without complication . MIP imaging was performed. A dose lowering technique was utilized adhering to the principles of AL KATHLEEN. CT DOSE: FINDINGS: There is mild right hilar lymphadenopathy. There was no evidence of thoracic aortic dilatation. There are right lower lobe and right upper lobe pulmonary artery filling defects indicative of acute pulmonary embolism. There is a small right pleural effusion. There are left pleural calcifications. There are postsurgical changes of a left sided lobectomy. There is severe pulmonary emphysema. There are new groundglass opacities within the right upper lobe, possibly representing hemorrhage giv en history of hemoptysis and pulmonary embolism. There are dependent right lower lobe opacities, poss ibly representing an area of pulmonary infarction. IMPRESSION: 1. Right upper lobe and right lower lobe pulmonary artery filling defects indicative of acute pulmona ry embolism 2. Postsurgical changes on the left 3. Severe emphysema 4. Small right pleural effusion 5. Right upper lobe groundglass opacities, likely representing hemorrhage given history of hemoptysis and pulmonary embolism 6. Right lower lung zone groundglass opacities, possibly representing area of pulmonary infarction 7. Mild right hilar adenopathy. ACT 112: Negative or not required by law. Electronically signed by: Ortega Nino M.D. 01/31/2021 9:50 AM
--- NOTE | 2021-01-31 10:05 | CT Scan Report ---
CT OF THE ABDOMEN AND PELVIS WITH CONTRAST CLINICAL HISTORY: Recent laparoscopic cholecystectomy enterolysis. COMPARISON STUDY: CT of the abdomen and pelvis December 16, 2020. Abdominal ultrasound January 03, 2021. TECHNIQUE: Following IV administration of 100 mL of Optiray, axial images of the abdomen and pelvis w ere obtained from the lung bases to the proximal femurs. Images were reviewed in the axial, sagittal, and coronal planes. IV contrast was administered without complication. Automated exposure control w as utilized for the study. A dose lowering technique was utilized adhering to the principles of ALAR A. CT DOSE: 836.76 mGy.cm FINDINGS: Please note that the chest CT will be reported separately. Chest CT better depicted right s ided pulmonary emboli with a small right pleural effusion and right lung airspace opacity. Enlarged r ight hilar lymph node is noted. There are postoperative findings within the left hemithorax. Surgical drain is in place. Note is made of a 2.8 cm pocket of gas with trace fluid within the cholecystectom y bed. This is within normal limits in the early postoperative setting. There is no biliary ductal di latation. There is no pancreatic ductal dilatation. A 4 cm hypodense pancreatic head lesion is simila r to CT of December 16, 2020. Multiple bilateral renal cysts are noted. No hydronephrosis. Skin margaret f rom cholecystectomy are noted with minimal subcutaneous infiltration and several locules of gas withi n the subcutaneous tissues. Rossi balloon is in place. There is no evidence for a bowel obstruction. The caliber and wall thickness of small and large bowel are normal. There is a moderate amount of poo rly formed stool within the right colon. IMPRESSION: 1. Small pocket of gas with trace fluid within the cholecystectomy bed which is within normal limits in the early postoperative setting. 2. No evidence for a bowel obstruction. 3. Multiple right-sided pulmonary emboli, a small right pleural effusion and right lung airspace opac ity which are better depicted on the chest CT. 4. 4 cm cystic pancreatic head lesion, similar to prior exam. This favors a serous cystadenoma althou gh remains indeterminate. ACT 112: Negative or not required by law. Electronically signed by: Dalton Moreno M.D. 01/31/2021 10:04 AM
[2021-01-31] MEDS ORDERED: FUROSEMIDE 40 MG/4 ML VIAL IV STA (10:46)
[2021-01-31] MEDS ORDERED: Heparin IV Adult Wt-Based Low-Dose *NO* Bolus Protocol ONE (10:46)
[2021-01-31] MEDS ORDERED: levoFLOXacin/D5W 750 MG/150 ML BAG IV STA (11:01)
[2021-01-31] MEDS: HEPARIN SODIUM/DEXTROSE 25,000 UNITS/500 ML BAG IV SCH (11:53)
[2021-01-31] MEDS ORDERED: ALBUTEROL HFA 8 GM INHALER INH PRN (12:00)
--- NOTE | 2021-01-31 12:09 | History & Physical Report ---
Date of Service January 31, 2021 Assessment & Plan (1) Pulmonary embolism and infarction: Acute pulmonary embolism- PESI IV, Shock index 0.6 - Right upper and lower lobe PE - low dose heparin drip protocol no bolus- PTT q6 hours - BNP 1812, Troponin <0.015, no acute ECG changes - hemodynamic stability- No hypotension, mild tachycardia 90-100 - No more hemoptysis - No JVD - ECHO pending - If pain develops from infarct or hemoptysis consider Toradol keeping in mind renal function and Lidoderm patch Ground glass opacities noted, WBC count normal- no fevers, sputum production as hemoptysis above - blood cultures pending - Levaquin discontinued, will follow symptom and WBC- re-introduce if warranted or recommended. (2) Ischemic cardiomyopathy: On optimal medical therapy - ECHO as above - Last ECHO 2019 as per HPI (3) CAD (coronary artery disease): Was previously on DAPT therapy and was restarted on his Brilinta POD #1 and continued his ASA through intraoperative and perioperative period. - Continue Carvdilol 3.125 mg PO BID - Hold ASA while on heparin - Continue Brilinta per Cards recs. - Continue Zetia- for HLD - Continue antihypertensives- stop if any evidence of shock or hypoperfusion occur - ECG for any chest pain - Cardiology consulted Patient did not take any of his medications today- Carvedilol now and ARB later today as above (4) HTN (hypertension): As above -Verapamil for migraines and HTN therapy (5) CKD (chronic kidney disease) stage 3, GFR 30-59 ml/min: Follow closely - Continue BP control - IVF if needed (6) COPD (chronic obstructive pulmonary disease): Emphysema - Continue albuterol PRN QID - Contine BREO dose this morning - O2 sats 92% goal (7) Dyslipidemia: Continue Zetia (8) Pancreatic cyst: Stable per Abdominal CT - no acute needs (9) Migraine: As above - Tylenol - Verapamil - No acute needs at this time (10) S/P laparoscopic cholecystectomy: - Continue pain control 1-2 tabs percocet PRN for moderate pain - No acute needs at this time (11) Acute urinary retention: Experienced postoperatively and buitrago remains in palce. - Was to follow up with urology today - I have spoken with urology LICENSED STAFF MFT and will leave Buitrago in place during his acute treatment for his PE, we may remove if desired and bladder scan with trial to voids, if not removed we can send back to urology. - Defer to rounding team. History of Present Illness Chief Complaint: shortness of breath Primary Care Provider: Shan Torres, DO 85 YOM with past medical history STEMI, CAD with stents to the LAD and TOMY Lara with an EF 50% (2019), HTN, HLD, migraines, COPD (emphysema) treated for exacerbation in December with ABX and steroid taper, CKD III, left lobectomy for lung cancer with chemo and radiaion, and pulmonary nodule. 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 Duvall. The patient went home and denied felling short of breath at that time, and reports that he walked around the unit 5 times yesterday prior to discharge without any dyspnea or calf pain. He went home last evening and slept in his recliner just because he felt fatigued. He got up this morning around 9am and started to cough. He coughed up "teaspoon" amount of blood that was predominantly clot, and then coughed up about 3 more smaller clots. He then came to the emergency room. In the Emergency room, he had a CTA of the chest performed, which revealed a right upper lobe and lower lobe pulmonary artery filling defect- acute pulmonary embolism, and ground glass opacities that was likely consistent with hemorrhage in right upper lobe and right lower lung gr ound glass opacities that likely represented area of pulmonary infarct. Dr. Bates from the [facility] spoke with pulmonary/critical care Dr. Velazquez and with [facility] in regards to this. Recommended heparin drip low dose without bolus. He also spoke to Dr. Sabillon from Cardiology that recommended stopping his ASA and continuing his Brilinta. The hospitalist service was then notified for admission. Patient will be admitted to PCU telemetry and followed for his pulmonary embolism, hemoptysis, and further workup and evaluations. Patient did require a Buitrago catheter postoperatively from his cholecystectomy for urinary retention that remains in place. I have spoken with urology LICENSED STAFF MFT and will leave Buitrago in place during his acute treatment for his PE, we may remove if desired and bladder scan with trial to voids, if not removed we can send back to urology. Allergies Allergy/AdvReac Type Severity Reaction Status Date / Time Cephalosporins Allergy Intermediate Rash Verified 01/22/21 11:07 fluticasone Allergy Intermediate Rash Verified 01/22/21 11:07 Iodinated Contrast Media Allergy Intermediate Hives Verified 01/22/21 11:07 Penicillins Allergy Intermediate Rash Verified 01/22/21 11:07 salmeterol Allergy Mild Rash Verified 01/22/21 11:07 cephalexin [From Keflex] Allergy Unknown Unknown Verified 01/22/21 11:07 pravastatin Allergy Unknown myalgias Verified 01/22/21 11:07 atorvastatin AdvReac Mild MUSCLE Verified 01/22/21 11:07 ACHES fluvastatin AdvReac Mild MUSCLE Verified 01/22/21 11:07 ACHES lisinopril AdvReac Mild Cough Verified 01/22/21 11:07 rosuvastatin AdvReac Mild MUSCLE Verified 01/22/21 11:07 ACHES Home Medications Medication Instructions Recorded Confirmed Type cholecalciferol (vitamin D3) 1,000 unit PO BID 06/25/18 01/31/21 History [Vitamin D3] nitroglycerin [Nitrostat] 1 tab SUBLINGUAL UD PRN 06/25/18 01/31/21 History aspirin [Ecotrin Low Strength] 81 mg PO QAM #30 tab 09/27/19 01/31/21 Rx pantoprazole 40 mg tablet,delayed 40 mg PO QAM 03/23/20 01/31/21 History release zinc acetate 50 mg (zinc) capsule 50 mg PO DAILY 03/23/20 01/31/21 History albuterol sulfate 90 mcg/actuation 2 puffs INH QID PRN g 06/12/20 01/31/21 History aerosol inhaler fluticasone furoate 100 1 inh INHALATION DAILY 06/12/20 01/31/21 History mcg-vilanterol 25 mcg/dose inhalation powder topiramate 25 mg tablet 25 mg PO QAM #90 tab 06/12/20 01/31/21 Rx verapamil 120 mg 24 hr 120 mg PO QAM #90 cap 06/12/20 01/31/21 Rx capsule,extended release ticagrelor 90 mg tablet 90 mg PO BID #180 tab 09/30/20 01/31/21 Rx carvedilol 3.125 mg tablet 3.125 mg PO BID #180 tab 11/26/20 01/31/21 Rx sucralfate 100 mg/mL oral 10 ml PO QID #1000 ml 01/02/21 01/31/21 Rx suspension allopurinol 100 mg PO QAM 01/15/21 01/31/21 History ezetimibe 10 mg tablet 10 mg PO QAM #90 tab 01/16/21 01/31/21 Rx valsartan 40 mg tablet 20 mg PO QAM #30 tab 01/22/21 01/31/21 Rx hydrocodone-acetaminophen 1 - 2 tab PO Q6H PRN #30 tab 01/30/21 01/31/21 Rx Past Med/Surg History Medical History (Updated 01/31/21 @ 14:11 by Walt Bates MD) Asthma CAD (coronary artery disease) S/p 4 stents in 2016 S/p stent 09/24/19 to D1 Known occluded distal LAD per cardio records Cancer of lung 1999 LOBECTOMY. CHEMO AND RADIATION Cerebral aneurysm Followed by Neuro MRA 07/18/19= "Stable 2 mm aneurysm arising from the lateral margin of the left cavernous carotid. Stable 2 mm aneurysm arising from the ophthalmic portion of the right internal carotid." Per 06/12/20 neuro note- two tiny aneursyms- stable on recent MRI- do not warrant neurosurgeon referral at this time- will continue to monitor CKD (chronic kidney disease) stage 3, GFR 30-59 ml/min COPD (chronic obstructive pulmonary disease) Pulmonary [facility] [place] Dyslipidemia Hemiplegic migraine Followed by Neuro, [place]- stable at 06/12/20 appt (follow up in one year) WAS THOUGHT TO HAVE STROKE BUT HEMIPLEGIC MIGRAINE AND NO PROBLEMS SINCE Hypertension Ischemic cardiomyopathy EF 45-50% Cardiology, ZANDER Sabillon Laryngopharyngeal reflux Nasal bleeding plan surgery 01/18 to cauterize Neural hearing loss Pancreatic cyst Paroxysmal atrial tachycardia Asymptomatic per cardio Pulmonary embolism and infarction Pulmonary emphysema Solitary pulmonary nodule STEMI (ST elevation myocardial infarction) 4 STENT 2015 1 STENT 09/24/19 Tinnitus of right ear Surgical History History of arthroplasty of left shoulder History of cardiac catheterization (~2015) 2016 MS WITH 4 STENTS 2019 with 1 stent to D1- pt dx'ed with STEMI at that time FOLLOWS WITH DR SABILLON History of colonoscopy History of excision of mass neck 2018 Hx of cataract surgery right and left S/P appendectomy S/P excision of lipoma S/P laparoscopic cholecystectomy (01/28/21) Laparoscopy with enterolysis, laparoscopic cholecystectomy and limited laparotomy 01/28/21 Dr. Duvall S/P lobectomy of lung LEFT S/P total knee arthroplasty LEFT Stented coronary artery Family History Brother Cancer Hypertension Sister Cancer Hypertension Diabetes Mother Hypertension Diabetes Unknown Coronary heart disease Father Coronary heart disease Daughter Breast cancer Other Lung cancer Myocardial infarction Denies family history of Ovarian cancer Prostate cancer Hearing loss No family history of adverse response to anesthesia No family history of bleeding disorder Heart disease Allergies Colorectal cancer Stroke Asthma Social History Smoking Status: Former smoker Tobacco Type: Cigarettes Cigarettes Per Day: 10; Second Hand Exposure: No; Hx Alcohol Use: No Hx Substance Use: No Preferred Language: Singaporean Communication Ability: Effective Visual Impairment: No Limitations 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: Normal 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 Required: No Beliefs That Will Affect Care: None marital status: Current Living Situation: Spouse current occupational status: retired current occupation: retired Feels Safe at Home: Yes Childhood Exposure to Second-Hand Smoke: Yes caffeine: Yes Dental Care, Regularly: No Physical Activity Frequency: Does not Exercise Seatbelt Use: always Sunscreen Use: Yes Assistive Devices: None Review of Systems Review of Systems: REVIEW OF SYSTEMS: Constitutional: No fever, sweats or chills Eyes: No diplopia, no worsening or blurred vision ENT: normal hearing, no trouble swallowing Respiratory: (+) cough, hemoptysis, sputum, dyspnea at rest or on exertion Cardiovascular: No chest pain, tightness or palpitations Abdomen: (+) postop pain with coughing, No nausea, vomiting, diarrhea or constipation Musculoskeletal: No joint pain, calf pain, swelling Neurologic: No weakness, numbness/tingling, or balance problems Psychiatric: No anxiety or depression Skin: upper extremity ecchymosis, no rash or itching. Physical Exam Physical Exam: PHYSICAL EXAM: General: awake, alert, no apparent distress Head: Normocephalic, atraumatic ENT: PERRL, EOMI, no pharyngeal exudate, mucous membranes moist Neuro: AAO x 3, speech clear and appropriate, strength intact bilaterally 5/5, sensation intact and equal all extremities and dermatomes, no pronator drift Chest: equal rise and fall of the chest, no accessory muscle use but tachypneic, scattered rhonchi with wheeze on right, clear on left, on 2LNC, Cardiac: Regular rate and rhythm, telemetry reviewed, skin warm dry, S1S2, cap refill <3 seconds, peripheral pulses +2 no JVD, no murmur, no edema, skin warm and dry GI: NABS x 4 quadrants, soft, tender only to incision, no rebound, guarding. : Spontaneously voiding, no pain, no CVA tenderness, Extremities: Normal inspection, no peripheral edema or erythema, calfs nontender to palpation Psych: Normal mood and affect Skin: no rash or erythema Results & Data Results & Data ([facility]) Vital Signs (Past 12 Hours) Vital Signs Temp Pulse Resp BP Pulse Ox 01/31/21 11:44 101 H 25 H 172/99 H 95 01/31/21 11:40 106 H 26 H 01/31/21 11:01 98 H 18 98 01/31/21 11:00 96 H 21 158/86 H 98 01/31/21 10:30 99 H 20 159/85 H 96 01/31/21 10:26 97 H 20 142/81 H 97 01/31/21 09:26 102 H 20 175/85 H 96 01/31/21 08:08 98 01/31/21 07:37 36.7 C 97 H 20 162/85 H 96 Laboratory Results Abnormal lab results 01/31/21 01/31/21 01/31/21 Range/Units 08:00 08:00 08:00 Hgb 13.7 L (14.0-18.0) g/dL Hct 40.6 L (42-52) % RDW Std Deviation 49.7 H (36.4-46.3) fL RDW Coeff of Falguni 15.4 H (11.5-14.5) % MPV 11.5 H (7.4-10.4) fL Lymph # (Auto) 0.66 L (1.2-3.4) K/uL [place] # (Auto) 0.82 H (0.11-0.59) K/uL Chloride 108 H (98-107) mmol/L POC Anion Gap (16-25) mmol/L Total Bilirubin 1.9 H (0.2-1) mg/dl NT-Pro-B Natriuret Pep (0-1800) pg/ml Albumin 3.2 L (3.4-5.0) gm/dl Albumin/Globulin Ratio 0.8 L (0.9-2) Urine Blood 3+ H (Negative) Ur Leukocyte Esterase 2+ H (Negative) Urine WBC (Auto) 5-10 H (0-5) /hpf Urine RBC (Auto) 5-10 H (0-4) /hpf U Epithel Cells (Auto) >30 H (0-5) /lpf 01/31/21 01/31/21 Range/Units 08:00 08:15 Hgb (14.0-18.0) g/dL Hct (42-52) % RDW Std Deviation (36.4-46.3) fL RDW Coeff of Falguni (11.5-14.5) % MPV (7.4-10.4) fL Lymph # (Auto) (1.2-3.4) K/uL [place] # (Auto) (0.11-0.59) K/uL Chloride (98-107) mmol/L POC Anion Gap 12.0 L (16-25) mmol/L Total Bilirubin (0.2-1) mg/dl NT-Pro-B Natriuret Pep 1812 H (0-1800) pg/ml Albumin (3.4-5.0) gm/dl Albumin/Globulin Ratio (0.9-2) Urine Blood (Negative) Ur Leukocyte Esterase (Negative) Urine WBC (Auto) (0-5) /hpf Urine RBC (Auto) (0-4) /hpf U Epithel Cells (Auto) (0-5) /lpf Diagnostic Findings XR chest 1V portable CLINICAL HISTORY: weakness COMPARISON STUDY: Chest CT January 09, 2012. Chest radiograph January 18, 2021. FINDINGS: Postoperative findings within the left hemithorax with volume loss are noted. Left paramediastinal irregular opacity is unchanged and favors postradiation change. There is emphysema. No pneumothorax is present. No pleural effusion is identified. There has been interval development of moderate right midlung opacity. There may be right basilar opacity is well. IMPRESSION: 1. Interval development of moderate right lung airspace opacity suggestive of pneumonia. 2. Stable postoperative findings within the left hemithorax. 3. Emphysema. CT ANGIOGRAM OF THE CHEST CLINICAL HISTORY: Hemoptysis. Possible acute pulmonary embolism. COMPARISON STUDY: Noncontrast chest CT dated 01/08/2021 TECHNIQUE: Following the IV administration of 100 mL of Optiray, CT angiogram of the thorax was performed from the thoracic inlet to the lung bases utilizing the pulmonary embolus protocol. Images are reviewed in the axial, sagittal, and coronal planes. IV contrast was administered without complication. MIP imaging was performed. A dose lowering technique was utilized adhering to the principles of ALARA. CT DOSE: FINDINGS: There is mild right hilar lymphadenopathy. There was no evidence of thoracic aortic dilatation. There are right lower lobe and right upper lobe pulmonary artery filling defects indicative of acute pulmonary embolism. There is a small right pleural effusion. There are left pleural calcifications. There are postsurgical changes of a left sided lobectomy. There is severe pulmonary emphysema. There are new groundglass opacities within the right upper lobe, possibly representing hemorrhage given history of hemoptysis and pulmonary embolism. There are dependent right lower lobe opacities, possibly representing an area of pulmonary infarction. IMPRESSION: 1. Right upper lobe and right lower lobe pulmonary artery filling defects indicative of acute pulmonary embolism 2. Postsurgical changes on the left 3. Severe emphysema 4. Small right pleural effusion 5. Right upper lobe groundglass opacities, likely representing hemorrhage given history of hemoptysis and pulmonary embolism 6. Right lower lung zone groundglass opacities, possibly representing area of pulmonary infarction 7. Mild right hilar adenopathy. CT OF THE ABDOMEN AND PELVIS WITH CONTRAST CLINICAL HISTORY: Recent laparoscopic cholecystectomy enterolysis. COMPARISON STUDY: CT of the abdomen and pelvis December 16, 2020. Abdominal ultrasound January 03, 2021. TECHNIQUE: Following IV administration of 100 mL of Optiray, axial images of the abdomen and pelvis were obtained from the lung bases to the proximal femurs. Images were reviewed in the axial, sagittal, and coronal planes. IV contrast was administered without complication. Automated exposure control was utilized for the study. A dose lowering technique was utilized adhering to the principles of ALARA. CT DOSE: 836.76 mGy.cm FINDINGS: Please note that the chest CT will be reported separately. Chest CT better depicted right sided pulmonary emboli with a small right pleural effusion and right lung airspace opacity. Enlarged right hilar lymph node is noted. There are postoperative findings within the left hemithorax. Surgical drain is in place. Note is made of a 2.8 cm pocket of gas with trace fluid within the cholecystectomy bed. This is within normal limits in the early postoperative setting. There is no biliary ductal dilatation. There is no pancreatic ductal dilatation. A 4 cm hypodense pancreatic head lesion is similar to CT of December 16, 2020. Multiple bilateral renal cysts are noted. No hydronephrosis. Skin margaret from cholecystectomy are noted with minimal subcutaneous infiltration and several locules of gas within the subcutaneous tissues. Buitrago balloon is in place. There is no evidence for a bowel obstruction. The caliber and wall thickness of small and large bowel are normal. There is a moderate amount of poorly formed stool within the right colon. IMPRESSION: 1. Small pocket of gas with trace fluid within the cholecystectomy bed which is within normal limits in the early postoperative setting. 2. No evidence for a bowel obstruction. 3. Multiple right-sided pulmonary emboli, a small right pleural effusion and right lung airspace opacity which are better depicted on the chest CT. 4. 4 cm cystic pancreatic head lesion, similar to prior exam. This favors a serous cystadenoma although remains indeterminate. Medications Administered Heparin Sodium/Dextrose (Heparin Sodium/Dextrose) 25,000 units in 500 mls @ 0.02 mls/hr IV .Q24H [facility]; Protocol Stop: 03/02/21 10:59 Last Admin: 01/31/21 11:53 Dose: 950 units/hr, 19 mls/hr Documented by: [id number] Cosigned by: [id number] Discontinued Medications Diphenhydramine HCl (Diphenhydramine 50 Mg/Ml Vial) 25 mg IV NOW STA Stop: 01/31/21 08:06 Last Admin: 01/31/21 08:55 Dose: 25 mg Documented by: [id number] Furosemide (Furosemide 40 Mg/4 Ml Vial) 20 mg IV NOW STA Stop: 01/31/21 10:47 Last Admin: 01/31/21 11:44 Dose: 20 mg Documented by: [id number] Ioversol (Optiray 350 500ml) 100 ml IV ONCE ONE Stop: 01/31/21 09:27 Last Admin: 01/31/21 09:27 Dose: 100 ml Documented by: [id number] Home Medications cholecalciferol (vitamin D3) [Vitamin D3] 1,000 unit PO BID 06/25/18 [History Confirmed 01/31/21] nitroglycerin [Nitrostat] 1 tab SUBLINGUAL UD PRN 06/25/18 [History Confirmed 01/31/21] aspirin [Ecotrin Low Strength] 81 mg PO QAM #30 tab 09/27/19 [Rx Confirmed 01/31/21] pantoprazole 40 mg tablet,delayed release 40 mg PO QAM 03/23/20 [History Confirmed 01/31/21] zinc acetate 50 mg (zinc) capsule 50 mg PO DAILY 03/23/20 [History Confirmed 01/31/21] albuterol sulfate 90 mcg/actuation aerosol inhaler 2 puffs INH QID PRN g 06/12/20 [History Confirmed 01/31/21] fluticasone furoate 100 mcg-vilanterol 25 mcg/dose inhalation powder 1 inh INHALATION DAILY 06/12/20 [History Confirmed 01/31/21] topiramate 25 mg tablet 25 mg PO QAM #90 tab 06/12/20 [Rx Confirmed 01/31/21] verapamil 120 mg 24 hr capsule,extended release 120 mg PO QAM #90 cap 06/12/20 [Rx Confirmed 01/31/21] ticagrelor 90 mg tablet 90 mg PO BID #180 tab 09/30/20 [Rx Confirmed 01/31/21] carvedilol 3.125 mg tablet 3.125 mg PO BID #180 tab 11/26/20 [Rx Confirmed 01/31/21] sucralfate 100 mg/mL oral suspension 10 ml PO QID #1000 ml 01/02/21 [Rx Confirmed 01/31/21] allopurinol 100 mg PO QAM 01/15/21 [History Confirmed 01/31/21] ezetimibe 10 mg tablet 10 mg PO QAM #90 tab 01/16/21 [Rx Confirmed 01/31/21] valsartan 40 mg tablet 20 mg PO QAM #30 tab 01/22/21 [Rx Confirmed 01/31/21] hydrocodone-acetaminophen 1 - 2 tab PO Q6H PRN #30 tab 01/30/21 [Rx Confirmed 01/31/21] Active Medications Albuterol (Albuterol Hfa 8 Gm Inhaler) 2 puffs INH QID PRN PRN Reason: Wheezing Stop: 03/02/21 11:59 Carvedilol (Carvedilol 3.125 Mg Tab) 3.125 mg PO BID [facility] Stop: 03/02/21 11:59 Fluticasone/Vilanterol (Fluticasone/Vilanterol 100/25mcg 14 Puffs/Inhaler) 1 puffs INH DAILY [facility] Stop: 03/03/21 08:59 Heparin Sodium/Dextrose (Heparin Sodium/Dextrose) 25,000 units in 500 mls @ 0.02 mls/hr IV .Q24H [facility]; Protocol Stop: 03/02/21 10:59 Last Admin: 01/31/21 11:53 Dose: 950 units/hr, 19 mls/hr Documented by: Pantoprazole Sodium (Pantoprazole 40 Mg Tab) 40 mg PO QAM [facility] Stop: 03/03/21 08:59 Ticagrelor (Ticagrelor 90 Mg Tab) 90 mg PO BID [facility] Stop: 03/02/21 11:59 ECG Additional Comments: Normal sinus rhythm Left axis deviation Left ventricular hypertrophy with QRS widening and repolarization abnormality Abnormal ECG When compared with ECG of 16-DEC-2020 08:24, No significant change was found Code Status & VTE Plan Code Status CODE: FULL VTE: SCD's, Heparin drip VTE Prophylaxis Plan VTE Prophylaxis will be ordered: Yes Supervising Physician Co-Signing Physician Notes I supervised MITA Rodas on this admission. I interviewed and examined the patient independently of him. The plan is as written in his note except for any following changes/exceptions: None Patient recently admitted for cholecystectomy and presents with shortness of breath and hemoptysis. Unfortunately, now with PE and pulmonary infarction on CTA today. Feeling some better on my interview and no ongoing hemoptysis. Presently hemodynamically and respiratory stable (breathing comfortably on nasal cannula). Case discussed with pulmonary and cardiology by ED provider. - Will hold ASA, but continue ticagrelor. - Low-dose heparin gtt given his hemoptysis with pulmonary to see him. - Had plan to see urology today, but will consult them for urinary retention issues. PG Care Time/CCT Total # of Minutes Spent Total Time Spent with Patient: Total time spent is greater than 50% in coordination of care (as documented) at patient's floor/unit and/or counseling patient: Coding Level of Care Code 71115 Initial Inpt Care Lvl 3 Diagnoses Pulmonary embolism and infarction I26.99 Ischemic cardiomyopathy I25.5 CAD (coronary artery disease) I25.119 Associated angina: with unspecified angina Coronary Disease-Associated Artery/Lesion type: unspecified vessel or lesion type [place] vs. transplanted heart: [place] heart HTN (hypertension) I10 Hypertension type: essential hypertension CKD (chronic kidney disease) stage 3, GFR 30-59 ml/min N18.30 Chronic kidney disease stage 3 subtype: unspecified whether 3a or 3b COPD (chronic obstructive pulmonary disease) J43.9 COPD type: emphysema Emphysema type: unspecified Dyslipidemia E78.5 Pancreatic cyst K86.2 Migraine G43.909 Intractability: not intractable Migraine type: unspecified Status migrainosus presence: without status migrainosus S/P laparoscopic cholecystectomy Z90.49 Acute urinary retention R33.8 (1) CKD (chronic kidney disease) stage 3, GFR 30-59 ml/min Chronic kidney disease stage 3 subtype: unspecified whether 3a or 3b Qualified Code(s): N18.30 - Chronic kidney disease, stage 3 unspecified (2) CAD (coronary artery disease) Associated angina: with unspecified angina Coronary Disease-Associated Artery/Lesion type: unspecified vessel or lesion type [place] vs. transplanted heart: [place] heart Qualified Code(s): I25.119 - Atherosclerotic heart disease of [place] coronary artery with unspecified angina pectoris (3) Migraine Intractability: not intractable Migraine type: unspecified Status migrainosus presence: without status migrainosus Qualified Code(s): G43.909 - Migraine, unspecified, not intractable, without status migrainosus (4) 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 (5) HTN (hypertension) Hypertension type: essential hypertension Qualified Code(s): I10 - Essential (primary) hypertension
--- NOTE | 2021-01-31 12:20 | Electrocardiogram Report ---
Test Reason : Blood Pressure : / mmHG Vent. Rate : 093 BPM Atrial Rate : 093 BPM P-R Int : 158 ms QRS Dur : 130 ms QT Int : 370 ms P-R-T Axes : 044 -57 096 degrees QTc Int : 460 ms Normal sinus rhythm Left axis deviation Left ventricular hypertrophy with QRS widening and repolarization abnormality Abnormal ECG When compared with ECG of 16-DEC-2020 08:24, No significant change was found Confirmed by Juan F Kessler ([id number]) on 01/31/2021 12:20:37 PM Referred By: Confirmed By:Juan Kessler
--- NOTE | 2021-01-31 12:43 | Ultrasound Report ---
BILATERAL LOWER EXTREMITY VENOUS DOPPLER CLINICAL HISTORY: assess for DVT following Pulmonary embolism COMPARISON STUDY: No previous studies for comparison. TECHNIQUE: Sonography of the deep venous system of the bilateral lower extremities was performed. Co mpression and augmentation were evaluated. FINDINGS: The bilateral common femoral, superficial femoral and popliteal veins were compressible. A ugmentation was normal. Flow was shown within the deep calf vessels. IMPRESSION: No evidence of deep venous thrombus within the bilateral lower extremities. ACT 112: Negative or not required by law. Electronically signed by: Dalton Moreno M.D. 01/31/2021 12:41 PM
[2021-01-31] MEDS ORDERED: POLYETHYLENE (MIRALAX) 17 GM PACK PO PRN (14:00)
[2021-01-31] MEDS ORDERED: HYDROCODONE/ACETAMOPHEN 5/325MG TAB PO PRN (14:00)
[2021-01-31] MEDS ORDERED: NITROGLYCERIN SL 0.4 MG/TAB TAB SL PRN (14:00)
[2021-01-31] MEDS ORDERED: ACETAMINOPHEN 325 MG TAB PO PRN (14:00)
[2021-01-31] MEDS: SUCRALFATE 1 GM/10 ML UDC PO SCH ×3 (15:09→20:28)
[2021-01-31] MEDS: TOPIRAMATE 25 MG TAB PO SCH (15:10)
[2021-01-31] MEDS: VALSARTAN 80 MG TAB PO SCH (15:13)
[2021-01-31] MEDS: TICAGRELOR 90 MG TAB PO SCH ×2 (15:54→20:28)
[2021-01-31] MEDS: carvediloL 3.125 MG TAB PO SCH ×2 (15:54→20:28)
--- NOTE | 2021-01-31 16:46 | Cardiology Consultation ---
Date of Consultation January 31, 2021 Assessment & Plan (1) Ischemic cardiomyopathy: Echocardiogram today demonstrated similar findings to prior evaluations. Regional wall motion abnormalities mildly reduced overall LV systolic function. Normal right ventricular function. It is possible that had element of pulmonary edema in addition to his pulmonary embolus. He seemed to have some orthopnea. Perhaps this was related to volume shifts in the perioperative period. He did receive a dose of Lasix couple of hours ago. He seems to much more comfortable currently. I think we can monitor his clinical status to determine if additional diuretics are required. He should continue on his carvedilol and valsartan. (2) Multifocal atrial tachycardia: He has a history of arrhythmia but has never been symptomatic. Normal sinus rhythm on his current EKG. No symptoms suggestive of atrial arrhythmias or other arrhythmias currently. He has been placed on telemetry. (3) CAD (coronary artery disease): Patient has an extensive history of coronary disease including multiple acute coronary syndromes and percutaneous interventions involving the LAD and diagonal branch. He has been maintained on dual anti-platelet therapy due to his history of recurrent events. However, he has been started on systemic anticoagulation for his pulmonary emboli, and on the recommendation Dr. Sabillon aspirin can be held but Brilinta continued. No current evidence of infarct or acute coronary syndrome. No symptoms leading up to his surgery suggestive of coronary insufficiency or angina. He should continue on his carvedilol and Zetia History of Present Illness Reason for Consultation: Pulmonary embolus, coronary artery disease Requesting Physician: Facundo Attending Physician: Leonard Loredo MD History of Present Illness The patient is an 85-year-old gentleman with a longstanding history of coronary disease and ischemic cardiomyopathy who was recently admitted for an elective cholecystectomy. Patient was discharged from the hospital yesterday and had a very restless evening. He states that he had to sleep in his recliner overnight due to some difficulty breathing. This morning the symptoms worsened and he presented to the emergency room for evaluation. He was discovered to have pulmonary emboli and started on anticoagulation. Leading up to his admission the patient had been complaining of chronic lower abdominal discomfort it was felt to be related to gallbladder disease. The patient had otherwise been quite active. 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 He was able to complete his usual duties without significant dyspnea or symptoms of chest discomfort. He has not been aware of any palpitations. He denies symptoms of dizziness, lightheadedness or syncope. With prior cardiac events the patient has had both severe chest discomfort and dyspnea. Allergies Allergy/AdvReac Type Severity Reaction Status Date / Time Cephalosporins Allergy Intermediate Rash Verified 01/22/21 11:07 fluticasone Allergy Intermediate Rash Verified 01/22/21 11:07 Iodinated Contrast Media Allergy Intermediate Hives Verified 01/22/21 11:07 Penicillins Allergy Intermediate Rash Verified 01/22/21 11:07 salmeterol Allergy Mild Rash Verified 01/22/21 11:07 cephalexin [From Keflex] Allergy Unknown Unknown Verified 01/22/21 11:07 pravastatin Allergy Unknown myalgias Verified 01/22/21 11:07 atorvastatin AdvReac Mild MUSCLE Verified 01/22/21 11:07 ACHES fluvastatin AdvReac Mild MUSCLE Verified 01/22/21 11:07 ACHES lisinopril AdvReac Mild Cough Verified 01/22/21 11:07 rosuvastatin AdvReac Mild MUSCLE Verified 01/22/21 11:07 ACHES Home Medications Medication Instructions Recorded Confirmed Type cholecalciferol (vitamin D3) 1,000 unit PO BID 06/25/18 02/04/21 History [Vitamin D3] nitroglycerin [Nitrostat] 1 tab SUBLINGUAL UD PRN 06/25/18 02/04/21 History pantoprazole 40 mg tablet,delayed 40 mg PO QAM 03/23/20 02/04/21 History release zinc acetate 50 mg (zinc) capsule 50 mg PO DAILY 03/23/20 02/04/21 History albuterol sulfate 90 mcg/actuation 2 puffs INH QID PRN g 06/12/20 02/04/21 History aerosol inhaler fluticasone furoate 100 1 inh INHALATION DAILY 06/12/20 02/04/21 History mcg-vilanterol 25 mcg/dose inhalation powder topiramate 25 mg tablet 25 mg PO QAM #90 tab 06/12/20 02/04/21 Rx verapamil 120 mg 24 hr 120 mg PO QAM #90 cap 06/12/20 02/04/21 Rx capsule,extended release carvedilol 3.125 mg tablet 3.125 mg PO BID #180 tab 11/26/20 02/04/21 Rx sucralfate 100 mg/mL oral 10 ml PO QID #1000 ml 01/02/21 02/04/21 Rx suspension allopurinol 100 mg PO QAM 01/15/21 02/04/21 History ezetimibe 10 mg tablet 10 mg PO QAM #90 tab 01/16/21 02/04/21 Rx valsartan 40 mg tablet 20 mg PO QAM #30 tab 01/22/21 02/04/21 Rx hydrocodone-acetaminophen 1 - 2 tab PO Q6H PRN #30 tab 01/30/21 02/04/21 Rx clopidogrel 75 mg PO QAM #90 tab 02/03/21 02/04/21 Rx potassium citrate 10 meq PO BID #20 tab 02/03/21 02/04/21 Rx rivaroxaban [Xarelto] 15 mg PO BID #40 tab 02/03/21 02/04/21 Rx rivaroxaban [Xarelto] 20 mg PO DAILY #30 tab 02/03/21 02/04/21 Rx Patient History Medical History Asthma CAD (coronary artery disease) S/p 4 stents in 2015 S/p stent 09/24/19 to D1 Known occluded distal LAD per cardio records Cancer of lung 1999 LOBECTOMY. CHEMO AND RADIATION Cerebral aneurysm Followed by Neuro MRA 07/18/19= "Stable 2 mm aneurysm arising from the lateral margin of the left cavernous carotid. Stable 2 mm aneurysm arising from the ophthalmic portion of the right internal carotid." Per 06/12/20 neuro note- two tiny aneursyms- stable on recent MRI- do not warrant neurosurgeon referral at this time- will continue to monitor CKD (chronic kidney disease) stage 3, GFR 30-59 ml/min COPD (chronic obstructive pulmonary disease) Pulmonary [facility], [place] Dyslipidemia Hemiplegic migraine Followed by Neuro, [place]- stable at 06/12/20 appt (follow up in one year) WAS THOUGHT TO HAVE STROKE BUT HEMIPLEGIC MIGRAINE AND NO PROBLEMS SINCE Hypertension Ischemic cardiomyopathy EF 45-50% Cardiology [place] Luis Alberto Laryngopharyngeal reflux Nasal bleeding plan surgery 01/18 to cauterize Neural hearing loss Pancreatic cyst Paroxysmal atrial tachycardia Asymptomatic per cardio Pulmonary embolism and infarction Pulmonary emphysema Solitary pulmonary nodule STEMI (ST elevation myocardial infarction) 4 STENT 2015 1 STENT 09/24/19 Tinnitus of right ear Surgical History History of arthroplasty of left shoulder History of cardiac catheterization (~2016) 2016 AR WITH 4 STENTS 2019 with 1 stent to D1- pt dx'ed with STEMI at that time FOLLOWS WITH DR SABILLON History of colonoscopy History of excision of mass neck 2018 Hx of cataract surgery right and left S/P appendectomy S/P excision of lipoma S/P laparoscopic cholecystectomy (01/28/21) Laparoscopy with enterolysis, laparoscopic cholecystectomy and limited laparotomy 01/28/21 Dr. Duvall S/P lobectomy of lung LEFT S/P total knee arthroplasty LEFT Stented coronary artery Family History Brother Cancer Hypertension Sister Cancer Hypertension Diabetes Mother Hypertension Diabetes Unknown Coronary heart disease Father Coronary heart disease Daughter Breast cancer Other Lung cancer Myocardial infarction Denies family history of Ovarian cancer Prostate cancer Hearing loss No family history of adverse response to anesthesia No family history of bleeding disorder Heart disease Allergies Colorectal cancer Stroke Asthma Social History Smoking Status: Never smoker Tobacco Type: Cigarettes Cigarettes Per Day: 10; Second Hand Exposure: No; Hx Alcohol Use: No Hx Substance Use: No Preferred Language: Macedonian Communication Ability: Effective Visual Impairment: No Limitations 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: Normal Chiller Tender Required: No Beliefs That Will Affect Care: None marital status: Current Living Situation: Spouse current occupational status: retired current occupation: retired Feels Safe at Home: Yes Childhood Exposure to Second-Hand Smoke: Yes caffeine: Yes Dental Care, Regularly: No Physical Activity Frequency: Does not Exercise Seatbelt Use: always Sunscreen Use: Yes Assistive Devices: None Review of Systems Review of Systems: All systems reviewed & are unremarkable except as noted in HPI & below Physical Exam Physical Exam: The patient is alert and oriented. Mood and affect appeared normal. He answered all questions appropriately. HEENT: Pupils are equal and reactive to light and accommodation. Extraocular movements are intact. The sclerae are anicteric. Neuro: Cranial nerves intact Neck: Patient's neck is supple. He has palpable carotid pulses bilaterally without bruits on auscultation. There is no evidence of jugular venous distention. The thyroid is not enlarged. Lungs: A no breath sounds on the left. No rales. No expiratory wheezing. Normal excursion on the right. Cardiac: Heart demonstrates a regular rate and rhythm. Normal S1 and S2. No murmurs on examination. Pulses: The patient has palpable radial pulses bilaterally that are equal in intensity Abdomen: Abdominal drain in the epigastric region. Extremities: There was no evidence of hypoperfusion. There is no cyanosis or clubbing. There is no edema. Skin: I did not appreciate any rashes on examination today. Results & Data ([facility]) Vital Signs (Past 12 Hours) Vital Signs Temp Pulse Resp BP Pulse Ox 01/31/21 13:47 100 H 01/31/21 13:16 36.4 C L 101 H 20 142/87 H 97 01/31/21 13:00 101 H 22 142/87 H 95 01/31/21 12:56 104 H 22 142/89 H 96 01/31/21 11:44 101 H 20 172/99 H 95 01/31/21 11:40 106 H 20 01/31/21 11:01 98 H 18 98 01/31/21 11:00 96 H 21 158/86 H 98 01/31/21 10:30 99 H 20 159/85 H 96 01/31/21 10:26 97 H 20 142/81 H 97 01/31/21 09:26 102 H 20 175/85 H 96 01/31/21 08:08 98 01/31/21 07:37 36.7 C 97 H 20 162/85 H 96 Laboratory Results Abnormal Lab Results 01/31/21 01/31/21 01/31/21 08:00 08:00 08:00 WBC 7.60 RBC 4.72 Hgb 13.7 L POC Hgb Hct 40.6 L POC Hct MCV 86.0 MCH 29.0 MCHC 33.7 RDW Std Deviation 49.7 H RDW Coeff of [place] 15.4 H Plt Count 201 MPV 11.5 H Immature Gran % (Auto) 0.3 Neut % (Auto) 79.0 Lymph % (Auto) 8.7 [place] % (Auto) 10.8 Eos % (Auto) 1.1 Baso % (Auto) 0.1 Neut # (Auto) 6.01 Lymph # (Auto) 0.66 L [place] # (Auto) 0.82 H Eos # (Auto) 0.08 Baso # (Auto) 0.01 Immature Gran # (Auto) 0.02 PT 10.6 INR 1.0 POC Sodium Sodium 138 POC Potassium Potassium 3.8 POC Chloride Chloride 108 H Carbon Dioxide 26 POC Total CO2 Anion Gap 4.0 POC Anion Gap POC BUN BUN 15 Creatinine 1.31 POC Creatinine Est Cr Clr Drug Dosing 46.1 Est GFR ( Amer) 57.5 Est GFR (Non-Af Amer) 49.6 BUN/Creatinine Ratio 11.5 Glucose 95 POC Glucose (other) Calcium 9.2 POC Ioniz Calcium Best Magnesium 2.2 Total Bilirubin 1.9 H AST 22 ALT 37 Alkaline Phosphatase 80 Troponin I < 0.015 NT-Pro-B Natriuret Pep Total Protein 7.2 Albumin 3.2 L Globulin 4.0 Albumin/Globulin Ratio 0.8 L TSH 2.220 Urine Color Urine Appearance Urine pH Ur Specific [place] Urine Protein Urine Glucose (UA) Urine Ketones Urine Blood Urine Nitrite Urine Bilirubin Urine Urobilinogen Ur Leukocyte Esterase Urine WBC (Auto) Urine RBC (Auto) U Hyaline Cast (Auto) U Epithel Cells (Auto) Urine Bacteria (Auto) Ur Renal Epithelial Cell Urine Yeast COVID-19 Eval Order SARS-CoV-2 (PCR) Influenza Type A (PCR) Influenza Type B (PCR) RSV (RT-PCR) 01/31/21 01/31/21 01/31/21 08:00 08:00 08:15 WBC RBC Hgb POC Hgb 14.6 Hct POC Hct 43 MCV MCH MCHC RDW Std Deviation RDW Coeff of [place] Plt Count MPV Immature Gran % (Auto) Neut % (Auto) Lymph % (Auto) [place] % (Auto) Eos % (Auto) Baso % (Auto) Neut # (Auto) Lymph # (Auto) [place] # (Auto) Eos # (Auto) Baso # (Auto) Immature Gran # (Auto) PT INR POC Sodium 139 Sodium POC Potassium 4.1 Potassium POC Chloride 105 Chloride Carbon Dioxide POC Total CO2 27 Anion Gap POC Anion Gap 12.0 L POC BUN 18 BUN Creatinine POC Creatinine 1.3 Est Cr Clr Drug Dosing Est GFR ( Amer) Est GFR (Non-Af Amer) BUN/Creatinine Ratio Glucose POC Glucose (other) 97 Calcium POC Ioniz Calcium Best 1.23 Magnesium Total Bilirubin AST ALT Alkaline Phosphatase Troponin I NT-Pro-B Natriuret Pep 1812 H Total Protein Albumin Globulin Albumin/Globulin Ratio TSH Urine Color Yellow Urine Appearance Clear Urine pH 7.5 Ur Specific [place] 1.013 Urine Protein Negative Urine Glucose (UA) Negative Urine Ketones Negative Urine Blood 3+ H Urine Nitrite Negative Urine Bilirubin Negative Urine Urobilinogen Negative Ur Leukocyte Esterase 2+ H Urine WBC (Auto) 5-10 H Urine RBC (Auto) 5-10 H U Hyaline Cast (Auto) 1-5 U Epithel Cells (Auto) >30 H Urine Bacteria (Auto) Negative Ur Renal Epithelial Cell Not Reportable Urine Yeast Not Reportable COVID-19 Eval Order SARS-CoV-2 (PCR) Influenza Type A (PCR) Influenza Type B (PCR) RSV (RT-PCR) 01/31/21 01/31/21 Unknown Unknown WBC RBC Hgb POC Hgb Hct POC Hct MCV MCH MCHC RDW Std Deviation RDW Coeff of [place]i Plt Count MPV Immature Gran % (Auto) Neut % (Auto) Lymph % (Auto) [place] % (Auto) Eos % (Auto) Baso % (Auto) Neut # (Auto) Lymph # (Auto) [place] # (Auto) Eos # (Auto) Baso # (Auto) Immature Gran # (Auto) PT INR POC Sodium Sodium POC Potassium Potassium POC Chloride Chloride Carbon Dioxide POC Total CO2 Anion Gap POC Anion Gap POC BUN BUN Creatinine POC Creatinine Est Cr Clr Drug Dosing Est GFR ( Amer) Est GFR (Non-Af Amer) BUN/Creatinine Ratio Glucose POC Glucose (other) Calcium POC Ioniz Calcium Best Magnesium Total Bilirubin AST ALT Alkaline Phosphatase Troponin I NT-Pro-B Natriuret Pep Total Protein Albumin Globulin Albumin/Globulin Ratio TSH Urine Color Urine Appearance Urine pH Ur Specific [place] Urine Protein Urine Glucose (UA) Urine Ketones Urine Blood Urine Nitrite Urine Bilirubin Urine Urobilinogen Ur Leukocyte Esterase Urine WBC (Auto) Urine RBC (Auto) U Hyaline Cast (Auto) U Epithel Cells (Auto) Urine Bacteria (Auto) Ur Renal Epithelial Cell Urine Yeast COVID-19 Eval Order CovFluRsv at [facility] SARS-CoV-2 (PCR) NEGATIVE Influenza Type A (PCR) Negative Influenza Type B (PCR) Negative RSV (RT-PCR) Negative Diagnostic Findings Pulmonary emboli and 2 lobes of the right lung. There did appear to be a small amount of hemorrhage in possible infarct as well. Left lung is surgically absent. Was unremarkable and showed expected postsurgical changes Lower extremity duplex did not reveal any DVT ECG Additional Comments: EKG obtained the time admission revealed normal sinus rhythm with left anterior fascicular block and a ventricular hypertrophy with associated T-wave inversions. Unchanged from prior. PG Care Time/CCT Total # of Minutes Spent Total Time Spent with Patient: Total time spent is greater than 50% in coordination of care (as documented) at patient's floor/unit and/or counseling patient: Coding Level of Care Code 01717 Initial Inpt Care Lvl 3 Diagnoses Ischemic cardiomyopathy I25.5 Multifocal atrial tachycardia I47.1 CAD (coronary artery disease) I25.119 Associated angina: with unspecified angina Coronary Disease-Associated Artery/Lesion type: unspecified vessel or lesion type [place] vs. transplanted heart: [place] heart (1) CAD (coronary artery disease) Associated angina: with unspecified angina Coronary Disease-Associated Artery/Lesion type: unspecified vessel or lesion type [place] vs. transplanted heart: [place] heart Qualified Code(s): I25.119 - Atherosclerotic heart disease of [place] coronary artery with unspecified angina pectoris
--- NOTE | 2021-01-31 16:52 | XCELERA ---
[id number]
[2021-01-31 18:02] LABS: Partial Thromboplastin Ratio 1.3; Partial Thromboplastin Time 34.3 Seconds (21.0-31.0)
[2021-01-31] MEDS ORDERED: HEPARIN IV BOLUS 3,000 UNITS in SYRINGE 0 ML IV ONE (18:45)
[2021-01-31] MEDS: CHOLECALCIFEROL 1,000 UNITS 25 MCG TAB PO SCH (20:28)
[2021-02-01 01:41] LABS: Partial Thromboplastin Ratio 1.8
[2021-02-01 01:42] LABS: Partial Thromboplastin Time 47.6 Seconds (21.0-31.0)
[2021-02-01 07:10] LABS: Basophils # (auto) 0.02 K/uL (0-0.2); Basophils % (auto) 0.3 %; Eosinophils # (auto) 0.15 K/uL (0-0.5); Eosinophils % (auto) 2.6 %; Hematocrit (blood only) 37.8 % (42-52); Immature Granulocytes # (auto) 0.03 K/uL (0.00-0.02); Immature Granulocytes % (auto) 0.5 %; Lymphocytes # (auto) 0.85 K/uL (1.2-3.4); Lymphocytes % (auto) 14.8 %; Mean Corpuscular Hemoglobin 29.5 pg (25-34); Mean Corpuscular Hgb Conc 34.4 g/dL (32-36); Mean Corpuscular Volume 85.7 fL (80-100); Mean Platelet Volume 10.7 fL (7.4-10.4); Monocytes # (auto) 0.76 K/uL (0.11-0.59); Monocytes % (auto) 13.3 %; Neutrophils # (auto) 3.92 K/uL (1.4-6.5); Neutrophils % (auto) 68.5 %; Platelet Count 182 K/uL (130-400); RDW Coefficient of Variation 15.6 % (11.5-14.5); Red Blood Count 4.41 M/uL (4.7-6.1); White Blood Count 5.73 K/uL (4.8-10.8)
[2021-02-01 07:22] LABS: Partial Thromboplastin Ratio 1.6; Partial Thromboplastin Time 41.8 Seconds (21.0-31.0)
[2021-02-01 07:42] LABS: BUN Creatinine Ratio 13.1 (10-20); Calcium 9.1 mg/dl (8.5-10.1); Creatinine Clr Calc Pharmacy 47.2 ml/min; Est GFR (African American) 59.2; Est GFR (Non-African American) 51.1; Magnesium 2.1 mg/dl (1.8-2.4); Potassium 3.6 mmol/L (3.5-5.1)
[2021-02-01] MEDS ORDERED: SODIUM CHLORIDE 0.65% NA SOLN 45 ML (OCEAN) ONE (08:38)
--- NOTE | 2021-02-01 08:57 | Hospitalist Progress Note ---
Date of Service February 01, 2021 Assessment & Plan (1) Pulmonary embolism and infarction: Acute pulmonary embolism- - Right upper and lower lobe PE - low dose heparin drip protocol no bolus- PTT q6 hours - BNP 1812, Troponin <0.015, no acute ECG changes - hemodynamic stability- No hypotension, mild tachycardia 90-100 - No more hemoptysis - No JVD - ECHO EF 45-50 RWMA seen - If pain develops from infarct or hemoptysis consider Toradol keeping in mind renal function and Lidoderm patch Ground glass opacities noted, WBC count normal- no fevers, sputum production as hemoptysis above - blood cultures pending - Levaquin discontinued, will follow symptom and WBC- re-introduce if warranted or recommended. (2) Ischemic cardiomyopathy: On optimal medical therapy - ECHO as above - Last ECHO 2019 as per HPI (3) CAD (coronary artery disease): Was previously on DAPT therapy and was restarted on his Brilinta POD #1 and continued his ASA through intraoperative and perioperative period. - Continue Carvdilol 3.125 mg PO BID - Hold ASA while on heparin -change brillinta to plavix per cardiology recommendations - Continue Zetia- for HLD - Continue antihypertensives- stop if any evidence of shock or hypoperfusion occur - ECG for any chest pain - Cardiology consulted Patient did not take any of his medications today- Carvedilol now and ARB later today as above (4) HTN (hypertension): As above -Verapamil for migraines and HTN therapy (5) CKD (chronic kidney disease) stage 3, GFR 30-59 ml/min: Follow closely - Continue BP control - IVF if needed (6) COPD (chronic obstructive pulmonary disease): Emphysema - Continue albuterol PRN QID - Contine BREO dose this morning - O2 sats 92% goal (7) Dyslipidemia: Continue Zetia (8) Pancreatic cyst: Stable per Abdominal CT - no acute needs (9) Migraine: As above - Tylenol - Verapamil - No acute needs at this time (10) S/P laparoscopic cholecystectomy: - Continue pain control 1-2 tabs percocet PRN for moderate pain - No acute needs at this time (11) Acute urinary retention: Experienced postoperatively and buitrago remains in palce. 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 Minimal chest pain. Did have some mild epistaxis since resolved no melena or other abdominal pain or complaints Review of Systems Review of Systems: Mild distress and fatigue no headache, blurry or double vision no speech or swallowing issues mild chest pain, pressure or palpitations no shortness of breath, cough or wheezes no abdominal pain, nausea or vomiting, diarrhea or constipation no dysuria, hematuria or frequency no focal joint pain or swelling no back pain, CVA tenderness or radicular pain no bruising, bleeding or rashes no focal signs of weakness or numbness or altered sensation no complaints of anxiety or depression.. Physical Exam Physical Exam: The patient appeared well nourished and normally developed. Vital signs as documented. Head exam is normocephalic atraumatic no scleral icterus Neck is without JVD, thyromegaly, or carotid bruits. Lungs are clear to auscultation, no focal loss of breath sounds no rubs no gallops Cardiac exam, Rhythm is regular.. No murmurs, rubs or gallops. Abdominal exam reveals normal bowel sounds, soft non tender, no masses Extremities are nonedematous and both pedal pulses are present Neurologic exam is alert and oriented, no focal loss of strength or sensation Skin is without bruises or rashes Psychologically is without concerns for anxiety or depression Results & Data Results & Data ([facility]) Vital Signs (Past 12 Hours) Vital Signs Temp Pulse Pulse Resp BP Pulse Ox 02/01/21 07:58 98.6 F 93 H 20 119/95 98 02/01/21 00:38 97.5 F L 79 17 115/70 95 01/31/21 23:33 81 PG Care Time/CCT Total # of Minutes Spent Total Time Spent with Patient: Total time spent is greater than 50% in coordination of care (as documented) at patient's floor/unit and/or counseling patient: Coding Level of Care Code 98545 Subseq Hosp Care Lvl 3 Diagnoses Pulmonary embolism and infarction I26.99 Ischemic cardiomyopathy I25.5 CAD (coronary artery disease) I25.119 Associated angina: with unspecified angina Coronary Disease-Associated Artery/Lesion type: unspecified vessel or lesion type [place] vs. transplanted heart: [place] heart HTN (hypertension) I10 Hypertension type: essential hypertension CKD (chronic kidney disease) stage 3, GFR 30-59 ml/min N18.30 Chronic kidney disease stage 3 subtype: unspecified whether 3a or 3b COPD (chronic obstructive pulmonary disease) J43.9 COPD type: emphysema Emphysema type: unspecified Dyslipidemia E78.5 Pancreatic cyst K86.2 Migraine G43.909 Intractability: not intractable Migraine type: unspecified Status migrainosus presence: without status migrainosus S/P laparoscopic cholecystectomy Z90.49 Acute urinary retention R33.8 (1) CKD (chronic kidney disease) stage 3, GFR 30-59 ml/min Chronic kidney disease stage 3 subtype: unspecified whether 3a or 3b Qualified Code(s): N18.30 - Chronic kidney disease, stage 3 unspecified (2) CAD (coronary artery disease) Associated angina: with unspecified angina Coronary Disease-Associated Artery/Lesion type: unspecified vessel or lesion type [place] vs. transplanted heart: [place] heart Qualified Code(s): I25.119 - Atherosclerotic heart disease of [place] coronary artery with unspecified angina pectoris (3) Migraine Intractability: not intractable Migraine type: unspecified Status migrainosus presence: without status migrainosus Qualified Code(s): G43.909 - Migraine, unspecified, not intractable, without status migrainosus (4) 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 (5) HTN (hypertension) Hypertension type: essential hypertension Qualified Code(s): I10 - Essential (primary) hypertension
[2021-02-01] MEDS ORDERED: FLUTICASONE/VILANTEROL 100/25MCG 14 PUFFS/INHALER INH SCH (09:00)
[2021-02-01] MEDS: VALSARTAN 80 MG TAB PO SCH (09:06)
[2021-02-01] MEDS: CHOLECALCIFEROL 1,000 UNITS 25 MCG TAB PO SCH ×2 (09:06→20:00)
[2021-02-01] MEDS: TOPIRAMATE 25 MG TAB PO SCH (09:08)
[2021-02-01] MEDS: VERAPAMIL HCL 120 MG TABCR PO SCH (09:10)
[2021-02-01] MEDS: PANTOprazole 40 MG TAB PO SCH (09:10)
[2021-02-01] MEDS: EZETIMIBE 10 MG TABLET PO SCH (09:10)
[2021-02-01] MEDS: SUCRALFATE 1 GM/10 ML UDC PO SCH ×4 (09:11→20:00)
[2021-02-01] MEDS: carvediloL 3.125 MG TAB PO SCH ×2 (09:11→20:00)
[2021-02-01] MEDS: TICAGRELOR 90 MG TAB PO SCH ×2 (09:13→20:34)
[2021-02-01] MEDS ORDERED: UMECLIDINIUM BROMIDE 62.5MCG/BLISTER 7 PUFFS/INHALER INH SCH (09:15)
[2021-02-01] MEDS: guaiFENesin/DEXTROM SYRUP 200MG/20MG 10ML UDC PO SCH ×3 (09:46→20:00)
--- NOTE | 2021-02-01 10:10 | XRay Report ---
XR chest 1V portable HISTORY: Pneumonia. Shortness of breath. Follow-up. COMPARISON: Chest 01/31/2021. FINDINGS: Stable postoperative changes within the left hemithorax with associated volume loss. No pne umothorax. No pleural effusions. The right midlung zone airspace opacity has slightly improved. Mild emphysema. The heart is normal in size. IMPRESSION: Slight improved aeration within the right midlung zone airspace opacity. This likely represents a res olving pneumonia. ACT 112: Negative or not required by law. Electronically signed by: Jelani Hitchcock M.D. 02/01/2021 10:09 AM
[2021-02-01] MEDS: HEPARIN SODIUM/DEXTROSE 25,000 UNITS/500 ML BAG IV SCH (11:37)
--- NOTE | 2021-02-01 16:09 | Pulmonary Consultation ---
Date of Consultation February 01, 2021 Assessment & Plan (1) Pulmonary emboli: CT chest 01/31/2021 personally reviewed: Patient had granular opacities appreciated in the right upper lobe, centrilobular emphysema appreciated. 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 Follows up with [facility]. --History of lung cancer Status post left lower lobectomy chemo and radiation Plan: Chest x-ray from today shows improvement in the haziness of the right upper lobe. Likely diuretics working. Continue with diuretics as tolerated. Keep the patient negative balance Patient's hemoptysis is resolved. This is likely a combination of fluid overload and PE Continue with antitussive medication Change Breo to Anoro. Would recommend to start the patient on Anoro Recommend 3 months of anticoagulation for PE. Can change to DOACs Dopplers were negative for DVT. Recommendation from pulmonary perspective. Call with any questions. Please note the above document was generated using voice recognition software. It may contain grammatical, syntax or spelling errors.Any formal questions or concerns about the content, text or information contained within the body of this dictation should be directly addressed to the provider for clarification. 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 Past 3: Left lower lobectomy for lung cancer is post chemo and radiation Pulmonary were consulted for PE as well as hemoptysis. Case was discussed with me on the phone by Dr. Bates from the ED. Suggestion were made to give NG tube [id number]. Give Lasix, start antibiotic. At the time of examination patient was on heparin drip. Patient states that he is feeling much better after coming to the hospital. He did not have any episodes of hemoptysis since coming to the hospital. Denies any chest pain, no headache, no nausea, no vomiting. Fair appetite. Denies any belly pain. No dysuria, no diarrhea. Patient recently had a cholecystectomy done. Social history: Greater than [id number] smoking history, quit a long time ago. Allergies Allergy/AdvReac Type Severity Reaction Status Date / Time Cephalosporins Allergy Intermediate Rash Verified 01/22/21 11:07 fluticasone Allergy Intermediate Rash Verified 01/22/21 11:07 Iodinated Contrast Media Allergy Intermediate Hives Verified 01/22/21 11:07 Penicillins Allergy Intermediate Rash Verified 01/22/21 11:07 salmeterol Allergy Mild Rash Verified 01/22/21 11:07 cephalexin [From Keflex] Allergy Unknown Unknown Verified 01/22/21 11:07 pravastatin Allergy Unknown myalgias Verified 01/22/21 11:07 atorvastatin AdvReac Mild MUSCLE Verified 01/22/21 11:07 ACHES fluvastatin AdvReac Mild MUSCLE Verified 01/22/21 11:07 ACHES lisinopril AdvReac Mild Cough Verified 01/22/21 11:07 rosuvastatin AdvReac Mild MUSCLE Verified 01/22/21 11:07 ACHES Home Medications Medication Instructions Recorded Confirmed Type cholecalciferol (vitamin D3) 1,000 unit PO BID 06/25/18 01/31/21 History [Vitamin D3] nitroglycerin [Nitrostat] 1 tab SUBLINGUAL UD PRN 06/25/18 01/31/21 History aspirin [Ecotrin Low Strength] 81 mg PO QAM #30 tab 09/27/19 01/31/21 Rx pantoprazole 40 mg tablet,delayed 40 mg PO QAM 03/23/20 01/31/21 History release zinc acetate 50 mg (zinc) capsule 50 mg PO DAILY 03/23/20 01/31/21 History albuterol sulfate 90 mcg/actuation 2 puffs INH QID PRN g 06/12/20 01/31/21 History aerosol inhaler fluticasone furoate 100 1 inh INHALATION DAILY 06/12/20 01/31/21 History mcg-vilanterol 25 mcg/dose inhalation powder topiramate 25 mg tablet 25 mg PO QAM #90 tab 06/12/20 01/31/21 Rx verapamil 120 mg 24 hr 120 mg PO QAM #90 cap 06/12/20 01/31/21 Rx capsule,extended release ticagrelor 90 mg tablet 90 mg PO BID #180 tab 09/30/20 01/31/21 Rx carvedilol 3.125 mg tablet 3.125 mg PO BID #180 tab 11/26/20 01/31/21 Rx sucralfate 100 mg/mL oral 10 ml PO QID #1000 ml 01/02/21 01/31/21 Rx suspension allopurinol 100 mg PO QAM 01/15/21 01/31/21 History ezetimibe 10 mg tablet 10 mg PO QAM #90 tab 01/16/21 01/31/21 Rx valsartan 40 mg tablet 20 mg PO QAM #30 tab 01/22/21 01/31/21 Rx hydrocodone-acetaminophen 1 - 2 tab PO Q6H PRN #30 tab 01/30/21 01/31/21 Rx Patient History Medical History Asthma CAD (coronary artery disease) S/p 4 stents in 2016 S/p stent 09/24/19 to D1 Known occluded distal LAD per cardio records Cancer of lung 1999 LOBECTOMY. CHEMO AND RADIATION Cerebral aneurysm Followed by Neuro MRA 07/18/19= "Stable 2 mm aneurysm arising from the lateral margin of the left cavernous carotid. Stable 2 mm aneurysm arising from the ophthalmic portion of the right internal carotid." Per 06/12/20 neuro note- two tiny aneursyms- stable on recent MRI- do not warrant neurosurgeon referral at this time- will continue to monitor CKD (chronic kidney disease) stage 3, GFR 30-59 ml/min COPD (chronic obstructive pulmonary disease) [facility] [place] Dyslipidemia Hemiplegic migraine Followed by Neuro, [place]- stable at 06/12/20 appt (follow up in one year) WAS THOUGHT TO HAVE STROKE BUT HEMIPLEGIC MIGRAINE AND NO PROBLEMS SINCE Hypertension Ischemic cardiomyopathy EF 45-50% Cardiology, ZANDER Sabillon Laryngopharyngeal reflux Nasal bleeding plan surgery 01/18 to cauterize Neural hearing loss Pancreatic cyst Paroxysmal atrial tachycardia Asymptomatic per cardio Pulmonary embolism and infarction Pulmonary emphysema Solitary pulmonary nodule STEMI (ST elevation myocardial infarction) 4 STENT 2015 1 STENT 09/24/19 Tinnitus of right ear Surgical History History of arthroplasty of left shoulder History of cardiac catheterization (~2015) 2016 MT WITH 4 STENTS 2018 with 1 stent to D1- pt dx'ed with STEMI at that time FOLLOWS WITH DR SABILLON History of colonoscopy History of excision of mass neck 2017 Hx of cataract surgery right and left S/P appendectomy S/P excision of lipoma S/P laparoscopic cholecystectomy (01/28/21) Laparoscopy with enterolysis, laparoscopic cholecystectomy and limited laparotomy 01/28/21 Dr. Duvall S/P lobectomy of lung LEFT S/P total knee arthroplasty LEFT Stented coronary artery Family History Brother Cancer Hypertension Sister Cancer Hypertension Diabetes Mother Hypertension Diabetes Unknown Coronary heart disease Father Coronary heart disease Daughter Breast cancer Other Lung cancer Myocardial infarction Denies family history of Ovarian cancer Prostate cancer Hearing loss No family history of adverse response to anesthesia No family history of bleeding disorder Heart disease Allergies Colorectal cancer Stroke Asthma Social History Smoking Status: Never smoker Tobacco Type: Cigarettes Cigarettes Per Day: 10; Second Hand Exposure: No; Do You Dip or Chew Tobacco: No; Hx Alcohol Use: No Hx Substance Use: No Preferred Language: Ukrainian Communication Ability: Effective Visual Impairment: No Limitations 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: Normal Auto 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 Required: No Beliefs That Will Affect Care: None marital status: Current Living Situation: Spouse current occupational status: retired current occupation: retired Other Information That Helps Us Care for You: No Feels Safe at Home: Yes Safety Concerns: Feels Safe At This Time Childhood Exposure to Second-Hand Smoke: Yes caffeine: Yes Dental Care, Regularly: No Physical Activity Frequency: Does not Exercise Seatbelt Use: always Sunscreen Use: Yes Assistive Devices: None Review of Systems Review of Systems: All systems reviewed & are unremarkable except as noted in HPI & below Physical Exam Physical Exam: Constitutional: No acute distress HEENT: EOMI, PERRLA Respiratory system: Decreased air entry on the left side, positive crackles bilateral lower lobes, no wheeze, no rhonchi CVS: S1-S2 positive, no murmurs or gallops, accentuated P2 Abdomen: Soft, nontender, nondistended, positive bowel sounds x4, obese Extremities: +2 pulses bilaterally radialis/ dorsalis pedis, no cyanosis, no edema Neuro: Awake alert oriented x3 Psych: Normal mood and affect G/U: Positive Rossi Skin: no rashes, warm and dry Lymphatic: no cervical or axillary lymphadenopathy Results & Data Results & Data ([facility]) Vital Signs (Past 12 Hours) Vital Signs Temp Pulse Pulse Resp BP Pulse Ox 02/01/21 15:41 36.5 C 63 17 117/67 98 02/01/21 11:58 36.9 C 91 H 18 150/80 H 95 02/01/21 07:58 37.0 C 93 H 20 119/95 98 02/01/21 07:00 82 02/01/21 06:56 02/01/21 06:56 PG Care Time/CCT Total # of Minutes Spent Total Time Spent with Patient: Total time spent is greater than 50% in coordination of care (as documented) at patient's floor/unit and/or counseling patient: Coding Level of Care Code 84920 Initial Inpt Care Lvl 3 Diagnoses Pulmonary emboli I26.99 Acute cor pulmonale presence: unspecified Chronicity: acute Pulmonary embolism type: unspecified Hemoptysis R04.2 COPD (chronic obstructive pulmonary disease) J43.9 COPD type: emphysema Emphysema type: unspecified Cancer of lung C34.90
--- NOTE | 2021-02-01 17:29 | Cardiology Progress Note ---
Date of Service February 01, 2021 Assessment & Plan (1) Pulmonary emboli: 2. Multivessel CAD--hx repeated LAD/diagonal interventions, known occluded distal LAD 3. Ischemic pxxaurcggighhv01-34% with apical WMA 4. Hypertension 5. Dyslipidemia Intolerant to multiple statins, Repatha 6. Migraine headacheson verapamil 7. COPD/prior LT lobectomy 8. Paroxysmal atrial tachycardia 9. Recent cholecystectomy 10. Acute urinary retention Hemodynamically and electrically stable. Breathing comfortably on RA No signs of heart failure on exam Normal RV function on echo. Troponin negative. - On heparin drip --> ocean transportation intermediary OK with DOAC - While on anticoagulation would transition ticagrelor to clopidogrel and continue to hold aspirin. - Continue GDMT for cardiomyopathy with coreg/valsartan Will follow Admission and Anticipated Discharge Date Admission Date: January 31, 2021 Subjective Intermittent episodes of shortness of breath. Minimal chest pain. Review of Systems Review of Systems: All systems reviewed & are unremarkable except as noted in HPI & below Physical Exam Physical Exam: General: Comfortable, no acute distress Neck: No JVD Lungs: Decreased breath sounds on LT, otherwise clear Cardiac: Regular rate and rhythm, no murmurs Abdomen: Soft, nontender Neuro: Nonfocal Psych: Alert orient x3, normal affect and mood Extremities/Vascular: -- 2+ radial bilaterally -- No edema Results & Data ([facility]) Vital Signs (Past 12 Hours) Vital Signs Temp Pulse Pulse Resp BP Pulse Ox 02/01/21 15:41 97.7 F 63 17 117/67 98 02/01/21 11:58 98.4 F 91 H 18 150/80 H 95 02/01/21 07:58 98.6 F 93 H 20 119/95 98 02/01/21 07:00 82 PG Care Time/CCT Total # of Minutes Spent Total Time Spent with Patient: Total time spent is greater than 50% in coordination of care (as documented) at patient's floor/unit and/or counseling patient: Coding Level of Care Code 95740 Subseq Hosp Care Lvl 3 Diagnoses Pulmonary emboli I26.99 Acute cor pulmonale presence: unspecified Chronicity: acute Pulmonary embolism type: unspecified (1) Pulmonary emboli Acute cor pulmonale presence: unspecified Chronicity: acute Pulmonary embolism type: unspecified Qualified Code(s): I26.99 - Other pulmonary embolism without acute cor pulmonale
[2021-02-01 17:32] LABS: Partial Thromboplastin Ratio 1.6; Partial Thromboplastin Time 42.7 Seconds (21.0-31.0)
[2021-02-02 01:28] LABS: Partial Thromboplastin Time 51.3 Seconds (21.0-31.0)
[2021-02-02] MEDS: guaiFENesin/DEXTROM SYRUP 200MG/20MG 10ML UDC PO SCH ×4 (05:03→21:41)
[2021-02-02] MEDS: HEPARIN SODIUM/DEXTROSE 25,000 UNITS/500 ML BAG IV SCH (06:12)
[2021-02-02 06:41] LABS: Basophils # (auto) 0.03 K/uL (0-0.2); Basophils % (auto) 0.5 %; Eosinophils # (auto) 0.24 K/uL (0-0.5); Eosinophils % (auto) 4.1 %; Hematocrit (blood only) 38.8 % (42-52); Hemoglobin 13.1 g/dL (14.0-18.0); Immature Granulocytes # (auto) 0.04 K/uL (0.00-0.02); Immature Granulocytes % (auto) 0.7 %; Lymphocytes % (auto) 17.3 %; Mean Corpuscular Hgb Conc 33.8 g/dL (32-36); Mean Corpuscular Volume 85.8 fL (80-100); Mean Platelet Volume 10.7 fL (7.4-10.4); Monocytes # (auto) 0.85 K/uL (0.11-0.59); Monocytes % (auto) 14.7 %; Neutrophils # (auto) 3.63 K/uL (1.4-6.5); Neutrophils % (auto) 62.7 %; Platelet Count 186 K/uL (130-400); RDW Coefficient of Variation 15.5 % (11.5-14.5); RDW Standard Deviation 49.1 fL (36.4-46.3); Red Blood Count 4.52 M/uL (4.7-6.1); White Blood Count 5.79 K/uL (4.8-10.8)
[2021-02-02 07:00] LABS: Partial Thromboplastin Ratio 1.9
[2021-02-02 07:01] LABS: Partial Thromboplastin Time 50.7 Seconds (21.0-31.0)
[2021-02-02 07:24] LABS: BUN Creatinine Ratio 13.3 (10-20); Calcium 8.7 mg/dl (8.5-10.1); Creatinine Clr Calc Pharmacy 47.2 ml/min; Est GFR (African American) 59.2; Est GFR (Non-African American) 51.1; Magnesium 2.2 mg/dl (1.8-2.4); Potassium 3.7 mmol/L (3.5-5.1)
[2021-02-02] MEDS: CHOLECALCIFEROL 1,000 UNITS 25 MCG TAB PO SCH ×2 (08:27→20:01)
[2021-02-02] MEDS: TOPIRAMATE 25 MG TAB PO SCH (08:28)
[2021-02-02] MEDS: CLOPIDOGREL BISULFATE 75 MG TAB PO SCH (08:28)
[2021-02-02] MEDS: EZETIMIBE 10 MG TABLET PO SCH (08:28)
[2021-02-02] MEDS: SUCRALFATE 1 GM/10 ML UDC PO SCH ×4 (08:28→20:01)
[2021-02-02] MEDS: VALSARTAN 80 MG TAB PO SCH (08:29)
[2021-02-02] MEDS: VERAPAMIL HCL 120 MG TABCR PO SCH (08:29)
[2021-02-02] MEDS: PANTOprazole 40 MG TAB PO SCH (08:29)
[2021-02-02] MEDS: UMECLIDINIUM/VILANTEROL 62.5/25MCG 7 PUFFS/INHALER INH SCH (08:31)
[2021-02-02] MEDS: carvediloL 3.125 MG TAB PO SCH ×2 (08:31→20:01)
--- NOTE | 2021-02-02 11:06 | Cardiology Progress Note ---
Date of Service February 02, 2021 Assessment & Plan (1) Pulmonary emboli: 2. Multivessel CAD--hx repeated LAD/diagonal interventions, known occluded distal LAD 3. Ischemic ctixjamhikctzi52-82% with apical WMA 4. Hypertension 5. Dyslipidemia Intolerant to multiple statins, Repatha 6. Migraine headacheson verapamil 7. COPD/prior LT lobectomy 8. Paroxysmal atrial tachycardia 9. Recent cholecystectomy 10. 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 Continue to hold aspirin. - Continue GDMT for cardiomyopathy with coreg/valsartan From a cardiac standpoint OK for discharge when other medical issues resolved and follow-up with me in 2 weeks. Admission and Anticipated Discharge Date Admission Date: January 31, 2021 Subjective Intermittent episodes of shortness of breath overnight but feeling well this morning. No chest pain. Telemetry reviewed no events. Review of Systems Review of Systems: All systems reviewed & are unremarkable except as noted in HPI & below Physical Exam Physical Exam: General: Comfortable, no acute distress Neck: No JVD Lungs: Decreased breath sounds on LT, otherwise clear Cardiac: Regular rate and rhythm, no murmurs Abdomen: Soft, nontender Neuro: Nonfocal Psych: Alert orient x3, normal affect and mood Extremities/Vascular: -- 2+ radial bilaterally -- No edema Results & Data ([facility]) Vital Signs (Past 12 Hours) Vital Signs Temp Pulse Pulse Pulse Resp BP Pulse Ox 02/02/21 07:35 97.9 F 80 20 153/78 H 97 02/02/21 07:23 79 02/02/21 03:23 97.7 F 75 16 147/70 H 96 02/01/21 23:27 98.1 F 77 16 128/74 96 PG Care Time/CCT Total # of Minutes Spent Total Time Spent with Patient: Total time spent is greater than 50% in coordination of care (as documented) at patient's floor/unit and/or counseling patient: Coding Level of Care Code 17717 Subseq Hosp Care Lvl 3 Diagnoses Pulmonary emboli I26.99 Acute cor pulmonale presence: unspecified Chronicity: acute Pulmonary embolism type: unspecified (1) Pulmonary emboli Acute cor pulmonale presence: unspecified Chronicity: acute Pulmonary embolism type: unspecified Qualified Code(s): I26.99 - Other pulmonary embolism without acute cor pulmonale
[2021-02-02] MEDS: POTASSIUM CITRATE 10 MEQ TAB PO SCH ×3 (11:11→20:01)
--- NOTE | 2021-02-02 14:44 | Hospitalist Progress Note ---
Date of Service February 02, 2021 Assessment & Plan (1) Pulmonary embolism and infarction: Acute pulmonary embolism- - Right upper and lower lobe PE - No more hemoptysis -Xarelto will start - ECHO EF 45-50 RWMA seen - If pain develops from infarct or hemoptysis consider Toradol keeping in mind renal function and Lidoderm patch Ground glass opacities noted, WBC count normal- no fevers, sputum production as hemoptysis above - blood cultures pending, urine with subclinical bacteremia, will start urocrit k - Levaquin discontinued, will follow symptom and WBC- re-introduce if warranted or recommended. (2) Ischemic cardiomyopathy: On optimal medical therapy - ECHO as above - Last ECHO 2019 as per HPI (3) CAD (coronary artery disease): Was previously on DAPT therapy and was restarted on his Brilinta POD #1 and continued his ASA through intraoperative and perioperative period. - Continue Carvdilol 3.125 mg PO BID - Hold ASA while on heparin -change brillinta to plavix per cardiology recommendations - Continue Zetia- for HLD - Continue antihypertensives- stop if any evidence of shock or hypoperfusion occur - ECG for any chest pain - Cardiology consulted feel he is stable Patient did not take any of his medications today- Carvedilol now and ARB later today as above (4) HTN (hypertension): As above -Verapamil for migraines and HTN therapy (5) CKD (chronic kidney disease) stage 3, GFR 30-59 ml/min: Follow closely - Continue BP control - IVF if needed (6) COPD (chronic obstructive pulmonary disease): Emphysema - Continue albuterol PRN QID - O2 sats 92% goal (7) Dyslipidemia: Continue Zetia (8) Pancreatic cyst: Stable per Abdominal CT - no acute needs (9) Migraine: As above - Tylenol - Verapamil - No acute needs at this time (10) S/P laparoscopic cholecystectomy: - Continue pain control 1-2 tabs percocet PRN for moderate pain - No acute needs at this time (11) Acute urinary retention: Experienced postoperatively and buitrago remains in palce. - Was to follow up with urology 02/01/21 - urology SIEBEL ARCHITECT recommends to leave Buitrago in place during his acute treatment for his PE, we may remove if desired and bladder scan with trial to voids, family requests voiding trial before discharge Admission and Anticipated Discharge Date Admission Date: January 31, 2021 Subjective Intermittent episodes of shortness of breath some chest pain, did ecg no acute changes, will transition to Xarelto and if stable will remove buitrago on 02/03 with voiding trial prior to discharge . Review of Systems Review of Systems: Mild distress and fatigue no headache, blurry or double vision no speech or swallowing issues mild chest pain, pleuritic and substernal at times, no pressure or palpitations paroxysmal shortness of breath, cough or wheezes no abdominal pain, nausea or vomiting, diarrhea or constipation no dysuria, hematuria or frequency no focal joint pain or swelling no back pain, CVA tenderness or radicular pain no bruising, bleeding or rashes no focal signs of weakness or numbness or altered sensation no complaints of anxiety or depression.. Physical Exam Physical Exam: The patient appeared well nourished and normally developed. Vital signs as documented. Head exam is normocephalic atraumatic no scleral icterus Neck is without JVD, thyromegaly, or carotid bruits. Lungs are clear to auscultation, no focal loss of breath sounds no rubs no gallops Cardiac exam, Rhythm is regular.. No murmurs, rubs or gallops. Abdominal exam reveals normal bowel sounds, soft non tender, no masses Extremities are nonedematous and both pedal pulses are present Neurologic exam is alert and oriented, no focal loss of strength or sensation Skin is without bruises or rashes Psychologically is without concerns for anxiety or depression Results & Data Results & Data ([facility]) Vital Signs (Past 12 Hours) Vital Signs Temp Pulse Pulse Pulse Resp BP Pulse Ox 02/02/21 14:00 66 20 116/69 96 02/02/21 12:00 98.4 F 78 20 115/66 95 02/02/21 07:35 97.9 F 80 20 153/78 H 97 02/02/21 07:23 79 02/02/21 03:23 97.7 F 75 16 147/70 H 96 PG Care Time/CCT Total # of Minutes Spent Total Time Spent with Patient: Total time spent is greater than 50% in coordination of care (as documented) at patient's floor/unit and/or counseling patient: Coding Level of Care Code 75651 Subseq Hosp Care Lvl 3 Diagnoses Pulmonary embolism and infarction I26.99 Ischemic cardiomyopathy I25.5 CAD (coronary artery disease) I25.119 Associated angina: with unspecified angina Coronary Disease-Associated Artery/Lesion type: unspecified vessel or lesion type [place] vs. transplanted heart: [place] heart HTN (hypertension) I10 Hypertension type: essential hypertension CKD (chronic kidney disease) stage 3, GFR 30-59 ml/min N18.30 Chronic kidney disease stage 3 subtype: unspecified whether 3a or 3b COPD (chronic obstructive pulmonary disease) J43.9 COPD type: emphysema Emphysema type: unspecified Dyslipidemia E78.5 Pancreatic cyst K86.2 Migraine G43.909 Migraine type: unspecified Status migrainosus presence: without status migrainosus Intractability: not intractable S/P laparoscopic cholecystectomy Z90.49 Acute urinary retention R33.8 (1) CAD (coronary artery disease) Associated angina: with unspecified angina Coronary Disease-Associated Artery/Lesion type: unspecified vessel or lesion type [place] vs. transplanted heart: [place] heart Qualified Code(s): I25.119 - Atherosclerotic heart disease of [place] coronary artery with unspecified angina pectoris (2) HTN (hypertension) Hypertension type: essential hypertension Qualified Code(s): I10 - Essential (primary) hypertension (3) CKD (chronic kidney disease) stage 3, GFR 30-59 ml/min Chronic kidney disease stage 3 subtype: unspecified whether 3a or 3b Qualified Code(s): N18.30 - Chronic kidney disease, stage 3 unspecified (4) 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 (5) Migraine Migraine type: unspecified Status migrainosus presence: without status migrainosus Intractability: not intractable Qualified Code(s): G43.909 - Migraine, unspecified, not intractable, without status migrainosus
[2021-02-02] MEDS ORDERED: STOP HEPARIN ORDER ONE (21:00)
[2021-02-02] MEDS: RIVAROXABAN 15 MG TAB PO SCH (21:15)
[2021-02-03] MEDS: guaiFENesin/DEXTROM SYRUP 200MG/20MG 10ML UDC PO SCH ×4 (03:17→14:09)
[2021-02-03 06:45] LABS: Basophils # (auto) 0.04 K/uL (0-0.2); Basophils % (auto) 0.6 %; Eosinophils # (auto) 0.26 K/uL (0-0.5); Eosinophils % (auto) 3.9 %; Hematocrit (blood only) 43.7 % (42-52); Hemoglobin 14.8 g/dL (14.0-18.0); Immature Granulocytes # (auto) 0.06 K/uL (0.00-0.02); Immature Granulocytes % (auto) 0.9 %; Lymphocytes # (auto) 1.31 K/uL (1.2-3.4); Lymphocytes % (auto) 19.8 %; Mean Corpuscular Hemoglobin 29.1 pg (25-34); Mean Corpuscular Hgb Conc 33.9 g/dL (32-36); Mean Platelet Volume 11.1 fL (7.4-10.4); Monocytes # (auto) 0.82 K/uL (0.11-0.59); Monocytes % (auto) 12.4 %; Neutrophils # (auto) 4.11 K/uL (1.4-6.5); Neutrophils % (auto) 62.4 %; Platelet Count 291 K/uL (130-400); RDW Coefficient of Variation 15.4 % (11.5-14.5); RDW Standard Deviation 49.5 fL (36.4-46.3); Red Blood Count 5.08 M/uL (4.7-6.1)
[2021-02-03 06:52] LABS: Partial Thromboplastin Ratio 1.3; Partial Thromboplastin Time 35.3 Seconds (21.0-31.0)
[2021-02-03 07:12] LABS: BUN Creatinine Ratio 10.8 (10-20); Calcium 9.4 mg/dl (8.5-10.1); Creatinine Clr Calc Pharmacy 42.8 ml/min; Est GFR (African American) 52.6; Est GFR (Non-African American) 45.4; Magnesium 2.3 mg/dl (1.8-2.4); Potassium 3.8 mmol/L (3.5-5.1)
--- NOTE | 2021-02-03 07:51 | Electrocardiogram Report ---
Test Reason : Blood Pressure : / mmHG Vent. Rate : 066 BPM Atrial Rate : 066 BPM P-R Int : 192 ms QRS Dur : 124 ms QT Int : 422 ms P-R-T Axes : 062 -55 098 degrees QTc Int : 442 ms Normal sinus rhythm Left anterior fascicular block Left ventricular hypertrophy with QRS widening Nonspecific ST and T wave abnormality Abnormal ECG When compared with ECG of 31-JAN-2021 07:50, T wave amplitude has decreased in Anterior leads Confirmed by Josh Gillis ([id number]) on 02/03/2021 7:51:48 AM Referred By: REFERRED SELF Confirmed By:Josh Gillis
[2021-02-03] MEDS: CHOLECALCIFEROL 1,000 UNITS 25 MCG TAB PO SCH (08:56)
[2021-02-03] MEDS: TOPIRAMATE 25 MG TAB PO SCH (08:57)
[2021-02-03] MEDS: RIVAROXABAN 15 MG TAB PO SCH (08:57)
[2021-02-03] MEDS: POTASSIUM CITRATE 10 MEQ TAB PO SCH ×2 (08:57→14:09)
[2021-02-03] MEDS: VALSARTAN 80 MG TAB PO SCH (08:58)
[2021-02-03] MEDS: VERAPAMIL HCL 120 MG TABCR PO SCH (08:58)
[2021-02-03] MEDS: EZETIMIBE 10 MG TABLET PO SCH (08:59)
[2021-02-03] MEDS: PANTOprazole 40 MG TAB PO SCH (09:00)
[2021-02-03] MEDS: carvediloL 3.125 MG TAB PO SCH (09:00)
[2021-02-03] MEDS: CLOPIDOGREL BISULFATE 75 MG TAB PO SCH (09:00)
[2021-02-03] MEDS: UMECLIDINIUM/VILANTEROL 62.5/25MCG 7 PUFFS/INHALER INH SCH (09:02)
[2021-02-03] MEDS: SUCRALFATE 1 GM/10 ML UDC PO SCH ×2 (09:02→12:17)
--- NOTE | 2021-02-03 14:47 | Discharge Summary ---
Date of Service February 03, 2021 Admission HPI Per Admitting Provider 85 YOM with past medical history STEMI, CAD with stents to the LAD and TOMY Lara with an EF 50% (2019), HTN, HLD, migraines, COPD (emphysema) treated for exacerbation in December with ABX and steroid taper, CKD III, left lobectomy for lung cancer with chemo and radiaion, and pulmonary nodule. 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 Duvall. The patient went home and denied felling short of breath at that time, and reports that he walked around the unit 5 times yesterday prior to discharge without any dyspnea or calf pain. He went home last evening and slept in his recliner just because he felt fatigued. He got up this morning around 9am and started to cough. He coughed up "teaspoon" amount of blood that was predominantly clot, and then coughed up about 3 more smaller clots. He then came to the emergency room. In the Emergency room, he had a CTA of the chest performed, which revealed a right upper lobe and lower lobe pulmonary artery filling defect- acute pulmonary embolism, and ground glass opacities that was likely consistent with hemorrhage in right upper lobe and right lower lung ground glass opacities that likely represented area of pulmonary infarct. Dr. Bates from the [facility] spoke with pulmonary/critical care Dr. Velazquez and with [facility] in regards to this. Recommended heparin drip low dose without bolus. He also spoke to Dr. Sahu from Cardiology that recommended stopping his ASA and continuing his Brilinta. The hospitalist service was then notified for admission. Patient will be admitted to PCU telemetry and followed for his pulmonary embolism, hemoptysis, and further workup and evaluations. Patient did require a Buitrago catheter postoperatively from his cholecystectomy for urinary retention that remains in place. I have spoken with urology VP [facility] and will leave Buitrago in place during his acute treatment for his PE, we may remove if desired and bladder scan with trial to voids, if not removed we can send back to urology. Principal Diagnosis pulmonary embolism and infarction-> discharged on xarelto change from brillinta/asa to plavix only subclinical enterococcus bacteria in urine,. 20,000, buitrago removed and given urocrit, cultured without catheter before discharged Discharge Exam The patient appeared well Vital signs as documented. Lungs are clear to auscultation and appear unlabored Cardiac exam, Rhythm is regular.. No murmurs, rubs or gallops. Abdominal exam reveals normal bowel sounds, soft non tender, margaret and dressing still in place in his abdomen Extremities are nonedematous and both pedal pulses are normal. Neurologic exam is alert and oriented, no focal loss of strength or sensation Skin is without bruises or rashes Psychologically is without concerns for anxiety or depression. Discharge Data Allergies Allergy/AdvReac Type Severity Reaction Status Date / Time Cephalosporins Allergy Intermediate Rash Verified 01/22/21 11:07 fluticasone Allergy Intermediate Rash Verified 01/22/21 11:07 Iodinated Contrast Media Allergy Intermediate Hives Verified 01/22/21 11:07 Penicillins Allergy Intermediate Rash Verified 01/22/21 11:07 salmeterol Allergy Mild Rash Verified 01/22/21 11:07 cephalexin [From Keflex] Allergy Unknown Unknown Verified 01/22/21 11:07 pravastatin Allergy Unknown myalgias Verified 01/22/21 11:07 atorvastatin AdvReac Mild MUSCLE Verified 01/22/21 11:07 ACHES fluvastatin AdvReac Mild MUSCLE Verified 01/22/21 11:07 ACHES lisinopril AdvReac Mild Cough Verified 01/22/21 11:07 rosuvastatin AdvReac Mild MUSCLE Verified 01/22/21 11:07 ACHES Consultations 01/31/21 11:01 ED Decision to Admit Stat 01/31/21 14:00 Consult Cardiology Routine Consult Pulmonology Routine Ordered Studies 01/31/21 07:38 CT abd pelvis IV con only Stat CT angio chest PE protocol Stat 01/31/21 11:21 US venous doppler LE Routine Hospital Course (1) Pulmonary embolism and infarction: Acute pulmonary embolism- - Right upper and lower lobe PE - No more hemoptysis -Xarelto for home anticoagulation - ECHO EF 45-50 RWMA seen - If pain develops from infarct or hemoptysis consider Toradol keeping in mind renal function and Lidoderm patch Ground glass opacities noted, WBC count normal- no fevers, sputum production as hemoptysis above - blood cultures pending, urine with subclinical bacteremia, Enterococcus 20,000 colonies, Buitrago catheter removed, urine culture sent without catheter prior to discharge. Will send out on urocrit k (2) Ischemic cardiomyopathy: On optimal medical therapy - ECHO as above - Last ECHO 2019 as per HPI (3) CAD (coronary artery disease): Was previously on DAPT therapy and was restarted on his Brilinta POD #1 and continued his ASA through intraoperative and perioperative period. - Continue Carvdilol 3.125 mg PO BID - Hold ASA while on heparin -change brillinta to plavix per cardiology recommendations - Continue Zetia- for HLD - Cardiology consulted feel he is stable (4) HTN (hypertension): As above -Verapamil for migraines and HTN therapy (5) CKD (chronic kidney disease) stage 3, GFR 30-59 ml/min: Has been stable (6) COPD (chronic obstructive pulmonary disease): Emphysema has been stable - Continue albuterol PRN QID - O2 sats 92% goal (7) Dyslipidemia: Continue Zetia (8) Pancreatic cyst: Stable per Abdominal CT - no acute needs (9) Migraine: As above - Tylenol - Verapamil - No acute needs at this time (10) S/P laparoscopic cholecystectomy: -Patient said good pain control without other issues at this time expected to follow typical postoperative instructions once discharged - No acute needs at this time (11) Acute urinary retention: Patient had Buitrago removed in the morning of 02/03 did have good voids in the afternoon was able to be discharged home encouraged to drink increased liquids. Total Time Total Time Spent Total Time Spent (In Minutes): It required greater than 30 minutes to prepare this patient for discharge Discharge Plan Discharge Items Patient Disposition: Home - Self-Care Reason For Visit: PULMONARY EMBOLISM Discharge Diagnosis: pulmonary embolism and infarction urinary retention passing voiding trial Activity: Resume your previous activity Activity Comment: no intentional exertion, continue post op instructions Non-emergency contact: Primary Care Provider Call non-emergency contact if: your symptoms worsen and you have a fever Follow-up/Referrals: Shan Torres, [Primary Care Provider] - Diet: Regular Addtl Attending Provider Instructions: you have been voiding well, continue to hydrate to assure good urine flow while you were here there was some bacteria in your urine, but it was a sample taken from the catheter that has since been removed, will have you home on a med to make your urine less hospitable to any bacteria, but is you develop urinary symptoms you may need referred for re evaluation and treatment 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 Anticoagulants will thin your blood to help prevent new clots. * You should take her medication exactly as directed. * Never skip a dose. * Never take a double dose. If you miss a dose, take it as soon as you remember. Call your Primary Care doctor if you experience any of the following: * Swelling or Pain in your leg * Sudden, continuous pain deep in a muscle * Pain that worsens when you are active or when you stand still for a long time * Chest Pain * Sudden Shortness of Breath * Rapid or pounding heart beat * Fainting * Dizziness * Cough with blood or bloody sputum * Sweating more than normal * Bruises * Heavy or uncontrolled bleeding * Blood in your urine, stool or vomit * Black or tarry stools Caring for Your Self at Home: * Avoid sitting, standing or lying down for long periods without moving your legs and feet * When traveling by car, stop to get out and move around at least once every 3 hours * On long airplane, train or bus rides, get up and move around when possible * If you can't get up, wiggle your toes and tighten your calves to keep your blood moving Follow Up: It is important for you to keep your follow up appointments with your medical provider. Pending Studies at Discharge: Yes Studies:: urine culture Stand-Alone Forms: [facility] [employer], Smoking Cessation Medications and DC Order Prescriptions: New clopidogrel 75 mg Tablet 75 mg PO QAM Qty: 90 RF: 3 Xarelto 15 mg Tablet 15 mg PO BID Qty: 40 RF: 0 Xarelto 20 mg tablet 20 mg PO DAILY Qty: 30 RF: 5 potassium citrate 10 mEq (1,080 mg) Tablet Extended Release 10 meq PO BID Qty: 20 RF: 0 Continued carvedilol [Coreg] 3.125 mg tablet 3.125 mg PO BID Qty: 180 RF: 3 ezetimibe [Zetia] 10 mg tablet 10 mg PO QAM Qty: 90 RF: 3 valsartan 40 mg tablet 20 mg PO QAM Qty: 30 RF: 11 sucralfate [Carafate] 100 mg/mL suspension 10 ml PO QID Qty: 1000 RF: 0 Breo Ellipta 100-25 mcg/dose blister with device 1 inh inhalation DAILY RF: 0 verapamil 120 mg capsule,ext rel. pellets 24 hr 120 mg PO QAM Qty: 90 RF: 3 topiramate [Topamax] 25 mg tablet 25 mg PO QAM Qty: 90 RF: 3 pantoprazole 40 mg tablet,delayed release (DR/EC) 40 mg PO QAM RF: 0 Galzin 50 mg (zinc) capsule 50 mg PO DAILY RF: 0 albuterol sulfate 90 mcg/actuation HFA aerosol inhaler 2 puffs INH QID PRN (Reason: Wheezing) RF: 0 nitroglycerin [Nitrostat] 0.4 mg Tablet, Sublingual 1 tab Sublingual UD PRN (Reason: Chest Pain) RF: 0 cholecalciferol (vitamin D3) [Vitamin D3] 1,000 unit Capsule 1,000 unit PO BID RF: 0 hydrocodone-acetaminophen 5-325 mg tablet 1 - 2 tab PO Q6H PRN (Reason: pain) Qty: 30 RF: 0 allopurinol 100 mg tablet 100 mg PO QAM RF: 0 Discontinued Brilinta 90 mg tablet 90 mg PO BID Qty: 180 RF: 3 aspirin [Ecotrin Low Strength] 81 mg Tablet,Delayed Release (Dr/Ec) 81 mg PO QAM Qty: 30 RF: 0 Discharge Orders: Discharge Order (Routine); Ordered 02/03/21 Ordered By: Ming Matias Admission Data Admit Date/Time: 01/31/21 11:42 Attending Provider: Ming Matias Admit Provider: Leonard Loredo Primary Care Provider: Shan Torres Other Providers: Leonard Loredo ; Froilan Kessler ; Suha Velazquez Coding Level of Care Code D/C Day Management >30 mins Diagnoses Pulmonary embolism and infarction I26.99 Ischemic cardiomyopathy I25.5 CAD (coronary artery disease) I25.119 Associated angina: with unspecified angina Coronary Disease-Associated Artery/Lesion type: unspecified vessel or lesion type [place] vs. transplanted heart: [place] heart HTN (hypertension) I10 Hypertension type: essential hypertension CKD (chronic kidney disease) stage 3, GFR 30-59 ml/min N18.30 Chronic kidney disease stage 3 subtype: unspecified whether 3a or 3b COPD (chronic obstructive pulmonary disease) J43.9 COPD type: emphysema Emphysema type: unspecified Dyslipidemia E78.5 Pancreatic cyst K86.2 Migraine G43.909 Migraine type: unspecified Status migrainosus presence: without status migrainosus Intractability: not intractable S/P laparoscopic cholecystectomy Z90.49 Acute urinary retention R33.8
--- NOTE | 2021-02-03 20:19 | Cardiology Progress Note ---
Date of Service February 03, 2021 Assessment & Plan (1) Pulmonary emboli: 2. Multivessel CAD--hx repeated LAD/diagonal interventions, known occluded distal LAD 3. Ischemic [id number]% with apical WMA 4. Hypertension 5. Dyslipidemia Intolerant to multiple statins, Repatha 6. Migraine headacheson verapamil 7. COPD/prior LT lobectomy 8. Paroxysmal atrial tachycardia 9. Recent cholecystectomy 10. Acute urinary retention Breathing comfortably on RA No signs of heart failure on exam -Okay for discharge today from a cardiac standpoint Home on dual therapy with Xarelto and clopidogrel - Continue GDMT for cardiomyopathy with coreg/valsartan Follow-up with me in 2 weeks. Admission and Anticipated Discharge Date Admission Date: January 31, 2021 Subjective Feeling better today. No chest pain. Rare/brief episodes of shortness of breath overnight. Rossi removed. Urinating easily. Telemetry reviewedno events Review of Systems Review of Systems: All systems reviewed & are unremarkable except as noted in HPI & below Physical Exam Physical Exam: General: Comfortable, no acute distress Neck: No JVD Lungs: Decreased breath sounds on LT, scant crackles at right base Cardiac: Regular rate and rhythm, no murmurs Abdomen: Soft, nontender Neuro: Nonfocal Psych: Alert orient x3, normal affect and mood Extremities/Vascular: -- 2+ radial bilaterally -- No edema Results & Data ([facility]) Vital Signs (Past 12 Hours) Vital Signs Temp Pulse Resp BP Pulse Ox 02/03/21 15:21 97.3 F L 69 16 114/64 96 02/03/21 12:15 97.3 F L 69 16 114/64 96 02/03/21 08:27 97.5 F L 89 18 130/71 97 PG Care Time/CCT Total # of Minutes Spent Total Time Spent with Patient: Total time spent is greater than 50% in coordination of care (as documented) at patient's floor/unit and/or counseling patient: Coding Level of Care Code 00519 Subseq Hosp Care Lvl 3 Diagnoses Pulmonary emboli I26.99 Acute cor pulmonale presence: unspecified Chronicity: acute Pulmonary embolism type: unspecified (1) Pulmonary emboli Acute cor pulmonale presence: unspecified Chronicity: acute Pulmonary embolism type: unspecified Qualified Code(s): I26.99 - Other pulmonary embolism without acute cor pulmonale
== END 2021-02-03 17:01 | disposition home or self-care (01) | DRG 176 ==
LOC: ED 07:22 → SUATTDRO 11:42 → 2S 11:42

== ENCOUNTER 2021-05-15 15:18 | Observation (INO) ==
--- NOTE | 2021-05-15 16:10 | Emergency Department Note ---
History of Present Illness General Chief complaint: Rectal Bleed Stated complaint: RECTAL BLEEDING/REFERRED BY Time Seen by Provider: 05/15/21 16:07 Source: patient Mode of arrival: ambulatory Limitations: no limitations History of Present Illness Provider Complaint: + blood on toilet paper and + gross hematochezia Onset (ago): 2 day(s) Pain Consistency: + constant Severity: moderate Maximum Pain Intensity: 0 Relieved By: + none Exacerbated By: + bowel movement and + other (Flatulence) Context: + medication/supplement use (Plavix and Xarelto); no history of GI bleed, no liver disease, no hemorrhoids, no swallowed FB, no rectal trauma, no alcohol abuse or no known esophageal varices Associated symptoms: + denies other symptoms Treatments Prior to Arrival: + none Home Medications Medication Instructions Recorded Confirmed Type cholecalciferol (vitamin D3) 25 2,000 unit PO HS 06/25/18 05/15/21 History mcg (1,000 unit) capsule (Vitamin D3) nitroglycerin 0.4 mg sublingual 1 tab SUBLINGUAL UD PRN 06/25/18 05/15/21 History tablet (Nitrostat) zinc acetate 50 mg (zinc) capsule 50 mg PO DAILY 03/23/20 05/15/21 History (Galzin) albuterol sulfate 90 mcg/actuation 2 puffs INH QID PRN g 06/12/20 05/15/21 History aerosol inhaler topiramate 25 mg tablet (Topamax) 25 mg PO QAM #90 tab 06/12/20 05/15/21 Rx carvedilol 3.125 mg tablet (Coreg) 3.125 mg PO BID #180 tab 11/26/20 05/15/21 Rx ezetimibe 10 mg tablet (Zetia) 10 mg PO QAM #90 tab 01/16/21 05/15/21 Rx valsartan 40 mg tablet 20 mg PO QAM #30 tab 01/22/21 05/15/21 Rx clopidogrel 75 mg tablet 75 mg PO QAM #90 tab 02/03/21 05/15/21 Rx allopurinol 100 mg tablet 100 mg PO QAM #30 tab 04/02/21 05/15/21 Rx rivaroxaban 20 mg tablet (Xarelto) 20 mg PO HS 05/15/21 05/15/21 History verapamil 120 mg 24 hr 120 mg PO QAM 05/15/21 05/15/21 History capsule,extended release Allergies Allergy/AdvReac Type Severity Reaction Status Date / Time Cephalosporins Allergy Intermediate Rash Verified 05/15/21 15:57 fluticasone Allergy Intermediate Rash Verified 05/15/21 15:57 Iodinated Contrast Media Allergy Intermediate Hives Verified 05/15/21 15:57 Penicillins Allergy Intermediate Rash Verified 05/15/21 15:57 salmeterol Allergy Mild Rash Verified 05/15/21 15:57 cephalexin [From Keflex] Allergy Unknown Unknown Verified 05/15/21 15:57 pravastatin Allergy Unknown myalgias Verified 05/15/21 15:57 atorvastatin AdvReac Mild MUSCLE Verified 05/15/21 15:57 ACHES fluvastatin AdvReac Mild MUSCLE Verified 05/15/21 15:57 ACHES lisinopril AdvReac Mild Cough Verified 05/15/21 15:57 rosuvastatin AdvReac Mild MUSCLE Verified 05/15/21 15:57 ACHES Past Med/Surg History Medical History Abnormal CT scan, chest Asthma CAD (coronary artery disease) S/p 4 stents in 2016 S/p stent 09/24/19 to D1 Known occluded distal LAD per cardio records Cancer of lung 1999 LOBECTOMY. CHEMO AND RADIATION Cerebral aneurysm Followed by Neuro MRA 07/18/19= "Stable 2 mm aneurysm arising from the lateral margin of the left cavernous carotid. Stable 2 mm aneurysm arising from the ophthalmic portion of the right internal carotid." Per 06/12/20 neuro note- two tiny aneursyms- stable on recent MRI- do not warrant neurosurgeon referral at this time- will continue to monitor Chronic obstructive pulmonary disease CKD (chronic kidney disease) stage 3, GFR 30-59 ml/min COPD (chronic obstructive pulmonary disease) [facility] [place] Dyslipidemia Hemiplegic migraine Followed by Neuro, [place]- stable at 06/12/20 appt (follow up in one year) WAS THOUGHT TO HAVE STROKE BUT HEMIPLEGIC MIGRAINE AND NO PROBLEMS SINCE Hypertension Ischemic cardiomyopathy EF 45-50% Cardiology, [place] Luis Alberto Laryngopharyngeal reflux Nasal bleeding plan surgery 01/18 to cauterize Neural hearing loss Pancreatic cyst Paroxysmal atrial tachycardia Asymptomatic per cardio Pulmonary embolism and infarction Pulmonary emphysema Solitary pulmonary nodule STEMI (ST elevation myocardial infarction) 4 STENT 2015 1 STENT 09/24/19 Tinnitus of right ear Surgical History History of arthroplasty of left shoulder History of cardiac catheterization (~2015) 2016 CT WITH 4 STENTS 2019 with 1 stent to D1- pt dx'ed with STEMI at that time FOLLOWS WITH DR SABILLON History of colonoscopy History of excision of mass neck 2018 Hx of cataract surgery right and left S/P appendectomy S/P excision of lipoma S/P laparoscopic cholecystectomy (01/28/21) Laparoscopy with enterolysis, laparoscopic cholecystectomy and limited laparotomy 01/28/21 Dr. Duvall S/P lobectomy of lung LEFT S/P total knee arthroplasty LEFT Stented coronary artery Family History Brother Cancer Hypertension Sister Cancer Hypertension Diabetes Mother Hypertension Diabetes Unknown Coronary heart disease Father Coronary heart disease Daughter Breast cancer Other Lung cancer Myocardial infarction Denies family history of Ovarian cancer Prostate cancer Hearing loss No family history of adverse response to anesthesia No family history of bleeding disorder Heart disease Allergies Colorectal cancer Stroke Asthma Social History Smoking Status: Former smoker Tobacco Type: Cigarettes Cigarettes Per Day: 10; Second Hand Exposure: No; Hx Alcohol Use: No Hx Substance Use: No Preferred Language: Indonesian Communication Ability: Effective Visual Impairment: No Limitations 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: Normal Casino [employer] Required: No Beliefs That Will Affect Care: None marital status: Current Living Situation: Spouse current occupational status: retired current occupation: retired Feels Safe at Home: Yes Safety Concerns: Feels Safe At This Time Childhood Exposure to Second-Hand Smoke: Yes caffeine: Yes Dental Care, Regularly: No Physical Activity Frequency: Does not Exercise Seatbelt Use: always Sunscreen Use: Yes Assistive Devices: Denture - Upper and Denture - Lower Review of Systems See HPI for pertinent positives & negatives. and A total of 10 systems reviewed and were otherwise negative Physical Exam Vital Signs: Vital Signs - 24 hr 05/15/21 15:22 05/15/21 15:57 05/15/21 16:00 Temperature 36.5 C Temperature Source Temporal Artery Sc an Pulse Rate 74 67 72 Pulse Rate from Sp O2 Sensor 68 72 Respiratory Rate 20 14 Respiratory Effort / Characteristics Non-Labored Sponta neous Respiratory Depth Normal Respiratory Patter n Regular Blood Pressure 121/72 Blood Pressure Susan n 88 Blood Pressure Pos ition Sitting Pulse Oximetry 97 97 98 Oxygen Delivery Me thod Room Air Sepsis Recent Feve r Within 48 Hours No Sepsis New/Unexpla ined Change in Men michelle Status No Sepsis Action Take n by Nursing No Action Required 05/15/21 16:10 05/15/21 16:20 05/15/21 16:32 Temperature Temperature Source Pulse Rate 68 70 69 Pulse Rate from Sp O2 Sensor 69 69 70 Respiratory Rate 19 Respiratory Effort / Characteristics Respiratory Depth Respiratory Patter n Blood Pressure 128/76 Blood Pressure Susan n 93 Blood Pressure Pos ition Pulse Oximetry 97 97 99 Oxygen Delivery Me thod Sepsis Recent Feve r Within 48 Hours Sepsis New/Unexpla ined Change in Men michelle Status Sepsis Action Take n by Nursing 05/15/21 18:25 05/15/21 18:30 05/15/21 19:00 Temperature Temperature Source Pulse Rate 68 70 70 Pulse Rate from Sp O2 Sensor 70 70 Respiratory Rate 19 Respiratory Effort / Characteristics Respiratory Depth Respiratory Patter n Blood Pressure 158/81 H 151/84 H Blood Pressure Susan n 106 106 Blood Pressure Pos ition Pulse Oximetry 98 98 Oxygen Delivery Me thod Sepsis Recent Feve r Within 48 Hours Sepsis New/Unexpla ined Change in Men michelle Status Sepsis Action Take n by Nursing 05/15/21 19:30 05/15/21 20:00 05/15/21 20:31 Temperature Temperature Source Pulse Rate 69 67 67 Pulse Rate from Sp O2 Sensor 69 67 67 Respiratory Rate 23 14 Respiratory Effort / Characteristics Respiratory Depth Respiratory Patter n Blood Pressure 153/80 H 161/78 H 178/78 H Blood Pressure Susan n 104 105 111 Blood Pressure Pos ition Pulse Oximetry 98 96 98 Oxygen Delivery Me thod Sepsis Recent Feve r Within 48 Hours Sepsis New/Unexpla ined Change in Men michelle Status Sepsis Action Take n by Nursing 05/15/21 21:00 05/15/21 21:30 05/15/21 22:00 Temperature Temperature Source Pulse Rate 69 76 71 Pulse Rate from Sp O2 Sensor 69 76 71 Respiratory Rate 20 16 Respiratory Effort / Characteristics Respiratory Depth Respiratory Patter n Blood Pressure 150/90 H 142/84 H 149/84 H Blood Pressure Susan n 110 103 105 Blood Pressure Pos ition Pulse Oximetry 97 98 98 Oxygen Delivery Me thod Sepsis Recent Feve r Within 48 Hours Sepsis New/Unexpla ined Change in Men michelle Status Sepsis Action Take n by Nursing 05/15/21 22:30 Temperature Temperature Source Pulse Rate 70 Pulse Rate from Sp O2 Sensor 69 Respiratory Rate 18 Respiratory Effort / Characteristics Respiratory Depth Respiratory Patter n Blood Pressure 131/76 Blood Pressure Susan n 94 Blood Pressure Pos ition Pulse Oximetry 96 Oxygen Delivery Me thod Sepsis Recent Feve r Within 48 Hours Sepsis New/Unexpla ined Change in Men michelle Status Sepsis Action Take n by Nursing Physical Exam: GENERAL: Well appearing, well nourished, NAD, non-toxic. EYE EXAM: Normal conjunctiva. PERRL, no anisocoria and EOM's grossly intact w/o pain. [OROPHARYNX: Moist mucus membranes. Grossly normal dentition. ] NECK: Supple, no nuchal rigidity, no adenopathy, non-tender. No signs of meningismus. LUNGS: Clear to auscultation. Normal chest wall mechanics. HEART: NSR, no MRG. ABDOMEN: Abdomen soft, non-tender, normo-active bowel sounds, no masses, no rebound or guarding. BACK: No CVA TTP. SKIN: No rashes and no bruising. UPPER EXTREMITIES: Upper extremities are grossly normal. LOWER EXTREMITIES: Grossly normal, no edema. NEURO EXAM: A&O x3, cranial nerves II-XII grossly intact, normal speech, moves all 4 extremities on command w/o issue. Course Course Cardiac monitoring: An order was placed for continuous cardiac monitoring. The monitor shows a rate of 69 with sinus rhythm. Administered Medications Discontinued Medications Carvedilol (Carvedilol 3.125 Mg Tab) 3.125 mg PO NOW ONE Stop: 05/15/21 20:01 Last Admin: 05/15/21 20:29 Dose: 3.125 mg Documented by: [id number] Famotidine (Famotidine 20mg/5ml Iv Push) 20 mg IV ONE STA Stop: 05/15/21 21:03 Last Admin: 05/15/21 21:09 Dose: 20 mg Documented by: [id number] Sodium Chloride (Nss) 500 mls @ 999 mls/hr IV .Q31M DALLIN Stop: 05/15/21 17:00 Last Infusion: 05/15/21 17:02 Dose: 999 mls/hr Documented by: [id number] Admin: 05/15/21 16:31 Dose: 999 mls/hr Documented by: [id number] Medical Decision Making Differential Diagnosis Diverticulosis, AVM, coagulopathy, colitis, inflammatory bowel disease, malignancy, Alison-Traore tear, esophagitis, peptic ulcer disease, variceal bleed, gastritis, epistaxis, fissure, hemorrhoids, as well as other pathologies. Medical Records Attestation: I reviewed the patient's medical records. Home Medications Current Medication List: was personally reviewed by me Laboratory Data Attestation: I reviewed the patient's lab results. Result diagrams: 05/15/21 15:54 05/15/21 17:02 Lab Results 05/15/21 05/15/21 05/15/21 Range/Units 15:54 15:54 15:54 WBC 5.15 (4.8-10.8) K/uL RBC 4.84 (4.7-6.1) M/uL Hgb 13.8 L (14.0-18.0) g/dL Hct 42.7 (42-52) % MCV 88.2 (80-100) fL MCH 28.5 (25-34) pg MCHC 32.3 (32-36) g/dL RDW Std Deviation 51.1 H (36.4-46.3) fL RDW Coeff of Falguni 15.7 H (11.5-14.5) % Plt Count 173 (130-400) K/uL MPV 11.7 H (7.4-10.4) fL Immature Gran % (Auto) 0.2 % Neut % (Auto) 61.6 % Lymph % (Auto) 25.2 % [place] % (Auto) 9.1 % Eos % (Auto) 2.9 % Baso % (Auto) 1.0 % Neut # (Auto) 3.17 (1.4-6.5) K/uL Lymph # (Auto) 1.30 (1.2-3.4) K/uL [place] # (Auto) 0.47 (0.11-0.59) K/uL Eos # (Auto) 0.15 (0-0.5) K/uL Baso # (Auto) 0.05 (0-0.2) K/uL Immature Gran # (Auto) 0.01 (0.00-0.02) K/uL PT Cancelled INR Cancelled APTT Cancelled PTT Ratio Cancelled Sodium 140 (136-145) mmol/L Potassium (3.5-5.1) mmol/L Chloride 111 H (98-107) mmol/L Carbon Dioxide 26 (21-32) mmol/L Anion Gap 3.0 (3-11) BUN 18 (7-18) mg/dl Creatinine 1.24 (0.6-1.4) mg/dl Est Cr Clr Drug Dosing 48.7 ml/min Est GFR ( Amer) 61.5 ml/min Est GFR (Non-Af Amer) 53.1 ml/min BUN/Creatinine Ratio 14.1 (10-20) Glucose 90 (70-99) mg/dl Calcium 8.9 (8.5-10.1) mg/dl Total Bilirubin 1.1 H (0.2-1) mg/dl AST (15-37) U/L ALT 24 (12-78) U/L Alkaline Phosphatase 81 (45-117) U/L Total Protein 7.3 (6.4-8.2) gm/dl Albumin 3.5 (3.4-5.0) gm/dl Globulin 3.8 (2.5-4.0) gm/dl Albumin/Globulin Ratio 0.9 (0.9-2) COVID-19 Eval Order SARS-CoV-2 (PCR) (Negative) Blood Type Antibody Screen 05/15/21 05/15/21 05/15/21 Range/Units 16:30 16:30 17:02 WBC (4.8-10.8) K/uL RBC (4.7-6.1) M/uL Hgb (14.0-18.0) g/dL Hct (42-52) % MCV (80-100) fL MCH (25-34) pg MCHC (32-36) g/dL RDW Std Deviation (36.4-46.3) fL RDW Coeff of Falguni (11.5-14.5) % Plt Count (130-400) K/uL MPV (7.4-10.4) fL Immature Gran % (Auto) % Neut % (Auto) % Lymph % (Auto) % [place] % (Auto) % Eos % (Auto) % Baso % (Auto) % Neut # (Auto) (1.4-6.5) K/uL Lymph # (Auto) (1.2-3.4) K/uL [place] # (Auto) (0.11-0.59) K/uL Eos # (Auto) (0-0.5) K/uL Baso # (Auto) (0-0.2) K/uL Immature Gran # (Auto) (0.00-0.02) K/uL PT INR APTT PTT Ratio Sodium (136-145) mmol/L Potassium (3.5-5.1) mmol/L Chloride (98-107) mmol/L Carbon Dioxide (21-32) mmol/L Anion Gap (3-11) BUN (7-18) mg/dl Creatinine (0.6-1.4) mg/dl Est Cr Clr Drug Dosing ml/min Est GFR ( Amer) ml/min Est GFR (Non-Af Amer) ml/min BUN/Creatinine Ratio (10-20) Glucose (70-99) mg/dl Calcium (8.5-10.1) mg/dl Total Bilirubin (0.2-1) mg/dl AST (15-37) U/L ALT (12-78) U/L Alkaline Phosphatase (45-117) U/L Total Protein (6.4-8.2) gm/dl Albumin (3.4-5.0) gm/dl Globulin (2.5-4.0) gm/dl Albumin/Globulin Ratio (0.9-2) COVID-19 Eval Order Covid19 at [facility] SARS-CoV-2 (PCR) NEGATIVE (Negative) Blood Type O Positive Antibody Screen NEGATIVE 05/15/21 05/15/21 Range/Units 17:02 17:02 WBC (4.8-10.8) K/uL RBC (4.7-6.1) M/uL Hgb (14.0-18.0) g/dL Hct (42-52) % MCV (80-100) fL MCH (25-34) pg MCHC (32-36) g/dL RDW Std Deviation (36.4-46.3) fL RDW Coeff of Falguni (11.5-14.5) % Plt Count (130-400) K/uL MPV (7.4-10.4) fL Immature Gran % (Auto) % Neut % (Auto) % Lymph % (Auto) % [place] % (Auto) % Eos % (Auto) % Baso % (Auto) % Neut # (Auto) (1.4-6.5) K/uL Lymph # (Auto) (1.2-3.4) K/uL [place] # (Auto) (0.11-0.59) K/uL Eos # (Auto) (0-0.5) K/uL Baso # (Auto) (0-0.2) K/uL Immature Gran # (Auto) (0.00-0.02) K/uL PT 12.2 H INR 1.2 H APTT 34.5 H PTT Ratio 1.3 Sodium (136-145) mmol/L Potassium 4.2 (3.5-5.1) mmol/L Chloride (98-107) mmol/L Carbon Dioxide (21-32) mmol/L Anion Gap (3-11) BUN (7-18) mg/dl Creatinine (0.6-1.4) mg/dl Est Cr Clr Drug Dosing ml/min Est GFR ( Amer) ml/min Est GFR (Non-Af Amer) ml/min BUN/Creatinine Ratio (10-20) Glucose (70-99) mg/dl Calcium (8.5-10.1) mg/dl Total Bilirubin (0.2-1) mg/dl AST 11 L (15-37) U/L ALT (12-78) U/L Alkaline Phosphatase (45-117) U/L Total Protein (6.4-8.2) gm/dl Albumin (3.4-5.0) gm/dl Globulin (2.5-4.0) gm/dl Albumin/Globulin Ratio (0.9-2) COVID-19 Eval Order SARS-CoV-2 (PCR) (Negative) Blood Type Antibody Screen [facility] Narrative Patient was seen due to concern for rectal bleeding. The patient is on Xarelto and Plavix. Patient did have blood work completed. The patient's vital signs are stable and the patient's hemoglobin is only slightly below 14. Given the concern for sentinel bleeding and the Xarelto and Plavix use do not believe unreasonable for inpatient observation and treatment to reassess H&H. I did speak with the on-call hospitalist and the patient was admitted to the medicine service. Patient's home blood pressure medications were ordered prior to admission. Patient had a normal white count and platelet count. Kidney function is unremarkable. Impression & Plan Rectal bleeding Discharge Plan Visit Data Chief Complaint: Rectal Bleed Stated Complaint: RECTAL BLEEDING/REFERRED BY ED Provider: Walt Bates Discharge Problem: Rectal bleeding Patient Disposition: Admitted As Inpatient Discharge Instructions Interventions: ED Discharge Assessment Last Done: 05/15/21 23:35
[2021-05-15] MEDS ORDERED: SODIUM CHLORIDE 0.9% 500 ML IV SCH (16:30)
[2021-05-15 16:49] LABS: Basophils # (auto) 0.05 K/uL (0-0.2); Eosinophils # (auto) 0.15 K/uL (0-0.5); Eosinophils % (auto) 2.9 %; Hematocrit (blood only) 42.7 % (42-52); Hemoglobin 13.8 g/dL (14.0-18.0); Immature Granulocytes # (auto) 0.01 K/uL (0.00-0.02); Immature Granulocytes % (auto) 0.2 %; Lymphocytes % (auto) 25.2 %; Mean Corpuscular Hemoglobin 28.5 pg (25-34); Mean Corpuscular Hgb Conc 32.3 g/dL (32-36); Mean Corpuscular Volume 88.2 fL (80-100); Mean Platelet Volume 11.7 fL (7.4-10.4); Monocytes # (auto) 0.47 K/uL (0.11-0.59); Monocytes % (auto) 9.1 %; Neutrophils # (auto) 3.17 K/uL (1.4-6.5); Neutrophils % (auto) 61.6 %; Platelet Count 173 K/uL (130-400); RDW Coefficient of Variation 15.7 % (11.5-14.5); RDW Standard Deviation 51.1 fL (36.4-46.3); Red Blood Count 4.84 M/uL (4.7-6.1); White Blood Count 5.15 K/uL (4.8-10.8)
[2021-05-15 16:58] LABS: Albumin Level 3.5 gm/dl (3.4-5.0); BUN Creatinine Ratio 14.1 (10-20); Calcium 8.9 mg/dl (8.5-10.1); Creatinine Clr Calc Pharmacy 48.7 ml/min; Est GFR (African American) 61.5 ml/min; Est GFR (Non-African American) 53.1 ml/min
[2021-05-15 17:00] LABS: Albumin Globulin Ratio 0.9 (0.9-2); Bilirubin,Total 1.1 mg/dl (0.2-1); Globulin 3.8 gm/dl (2.5-4.0); Total Protein 7.3 gm/dl (6.4-8.2)
[2021-05-15 17:26] LABS: INR 1.2 (0.9-1.1); Partial Thromboplastin Ratio 1.3; Partial Thromboplastin Time 34.5 Seconds (21.0-31.0); Prothrombin Time 12.2 Seconds (9.0-12.0)
[2021-05-15 17:28] LABS: Potassium 4.2 mmol/L (3.5-5.1)
[2021-05-15] MEDS ORDERED: carvediloL 3.125 MG TAB PO ONE (20:00)
--- NOTE | 2021-05-15 20:51 | History & Physical Report ---
Date of Service May 15, 2021 Assessment & Plan (1) Bright red blood per rectum: Plan: Mr. Singleton is an 85 yo gentleman on anticoagulation with Xarelto and plavix who presented for evaluation of bright red blood per rectum. - hemodynamically stable - Hgb 13.8, up from 13.5 on check in 02/2021. - Trend H+H q4. Transfuse if Hgb <8 given hx of CAD. - If patient were to bleed overnight, consider desmopressin to reverse Plavix, Kcentra to reverse Xarelto - suspect lower GI source (ie diverticular bleed or hemorrhoid) as BUN is not elevated, patient without hx of PUD - famotidine 20mg IV given in ED - hold Xarelto and plavix - avoid NSAIDs - GI consult placed; NPO after midnight in the event of possible endoscopy (2) Pulmonary emboli: Plan: - diagnosed in December 2020 follow a cholecystectomy - holding Xarelto as above due to acute GI bleed - given this was a provoked DVT, consider discontinuing DOAC as it has been 5 months since anticoauglation was initiated (3) HTN (hypertension): Plan: - hold home anti-hypertensives (valsartan, diltiazem and carvedilol) due to acute GI bleed (4) Gout: Plan: - continue home allopurinol (5) Dyslipidemia: Plan: - continue zetia (6) Chronic obstructive pulmonary disease: Plan: - continue home inhaler regimen (7) CAD (coronary artery disease): Plan: - hold plavix in setting of acute GI bleed; plan to continue prison given stents - hold beta gene and valsartan in setting of acute GI bleed - continue zetia DVT PPx: chemo contraindicated in setting of acute bleed; SCDs Diet: NPO after midnight in the event of possible scope Dispo: Med/tele Code: Full, I discussed with patient at bedside History of Present Illness Primary Care Provider: Shan Torres DO Mr. Singleton is an 85 yo gentleman with a PMHX of CAD (s/p stent placement x4) and a pulmonary embolism (on Xarelto) who was referred to [facility] ED by his family doctor for evaluation of bright red blood per rectum. Yesterday, Mr. Singleton noticed some blood on the toilet paper after wiping - it was a small amount so he did not think much of it. Today, he had 3 bloody additional bowel movements - blood filled the toilet bowl each time. He denies any chest pain, SOB or lightheadedness. No hematemesis or hematuria. He was placed on Xarelto in December 2020 after he developed a post-operative pulmonary embolism. He denies any previous GI bleeds or brain bleeds. His last colonoscopy was ~ 20 years ago, it was normal. Social Hx: No etoh. Former smoker. In the ED, he was febrile and hemodynamically stable. His Hgb was 13.8. His WBC and platelet levels were normal. His INR was 1.2. His CMP was normal. His COVID 19 testing was negative. He was given 1 liter of NSS. Allergies Allergy/AdvReac Type Severity Reaction Status Date / Time Cephalosporins Allergy Intermediate Rash Verified 05/15/21 15:57 fluticasone Allergy Intermediate Rash Verified 05/15/21 15:57 Iodinated Contrast Media Allergy Intermediate Hives Verified 05/15/21 15:57 Penicillins Allergy Intermediate Rash Verified 05/15/21 15:57 salmeterol Allergy Mild Rash Verified 05/15/21 15:57 cephalexin [From Keflex] Allergy Unknown Unknown Verified 05/15/21 15:57 pravastatin Allergy Unknown myalgias Verified 05/15/21 15:57 atorvastatin AdvReac Mild MUSCLE Verified 05/15/21 15:57 ACHES fluvastatin AdvReac Mild MUSCLE Verified 05/15/21 15:57 ACHES lisinopril AdvReac Mild Cough Verified 05/15/21 15:57 rosuvastatin AdvReac Mild MUSCLE Verified 05/15/21 15:57 ACHES Home Medications Medication Instructions Recorded Confirmed Type cholecalciferol (vitamin D3) 25 2,000 unit PO HS 06/25/18 05/15/21 History mcg (1,000 unit) capsule (Vitamin D3) nitroglycerin 0.4 mg sublingual 1 tab SUBLINGUAL UD PRN 06/25/18 05/15/21 History tablet (Nitrostat) zinc acetate 50 mg (zinc) capsule 50 mg PO DAILY 03/23/20 05/15/21 History (Galzin) albuterol sulfate 90 mcg/actuation 2 puffs INH QID PRN g 06/12/20 05/15/21 History aerosol inhaler topiramate 25 mg tablet (Topamax) 25 mg PO QAM #90 tab 06/12/20 05/15/21 Rx carvedilol 3.125 mg tablet (Coreg) 3.125 mg PO BID #180 tab 11/26/20 05/15/21 Rx ezetimibe 10 mg tablet (Zetia) 10 mg PO QAM #90 tab 01/16/21 05/15/21 Rx valsartan 40 mg tablet 20 mg PO QAM #30 tab 01/22/21 05/15/21 Rx clopidogrel 75 mg tablet 75 mg PO QAM #90 tab 02/03/21 05/15/21 Rx allopurinol 100 mg tablet 100 mg PO QAM #30 tab 04/02/21 05/15/21 Rx rivaroxaban 20 mg tablet (Xarelto) 20 mg PO HS 05/15/21 05/15/21 History verapamil 120 mg 24 hr 120 mg PO QAM 05/15/21 05/15/21 History capsule,extended release Past Med/Surg History Medical History Abnormal CT scan, chest Asthma CAD (coronary artery disease) S/p 4 stents in 2016 S/p stent 09/24/19 to D1 Known occluded distal LAD per cardio records Cancer of lung 1999 LOBECTOMY. CHEMO AND RADIATION Cerebral aneurysm Followed by Neuro MRA 07/18/19= "Stable 2 mm aneurysm arising from the lateral margin of the left cavernous carotid. Stable 2 mm aneurysm arising from the ophthalmic portion of the right internal carotid." Per 06/12/20 neuro note- two tiny aneursyms- stable on recent MRI- do not warrant neurosurgeon referral at this time- will continue to monitor Chronic obstructive pulmonary disease CKD (chronic kidney disease) stage 3, GFR 30-59 ml/min COPD (chronic obstructive pulmonary disease) Pulmonary [place] Dyslipidemia Hemiplegic migraine Followed by Neuro, [place]- stable at 06/12/20 appt (follow up in one year) WAS THOUGHT TO HAVE STROKE BUT HEMIPLEGIC MIGRAINE AND NO PROBLEMS SINCE Hypertension Ischemic cardiomyopathy EF 45-50% Cardiology, [place] Luis Alberto Laryngopharyngeal reflux Nasal bleeding plan surgery 01/18 to cauterize Neural hearing loss Pancreatic cyst Paroxysmal atrial tachycardia Asymptomatic per cardio Pulmonary embolism and infarction Pulmonary emphysema Solitary pulmonary nodule STEMI (ST elevation myocardial infarction) 4 STENT 2016 1 STENT 09/24/19 Tinnitus of right ear Surgical History History of arthroplasty of left shoulder History of cardiac catheterization (~2015) 2016 CA WITH 4 STENTS 2019 with 1 stent to D1- pt dx'ed with STEMI at that time FOLLOWS WITH DR SABILLON History of colonoscopy History of excision of mass neck 2018 Hx of cataract surgery right and left S/P appendectomy S/P excision of lipoma S/P laparoscopic cholecystectomy (01/28/21) Laparoscopy with enterolysis, laparoscopic cholecystectomy and limited laparotomy 01/28/21 Dr. Duvall S/P lobectomy of lung LEFT S/P total knee arthroplasty LEFT Stented coronary artery Family History Brother Cancer Hypertension Sister Cancer Hypertension Diabetes Mother Hypertension Diabetes Unknown Coronary heart disease Father Coronary heart disease Daughter Breast cancer Other Lung cancer Myocardial infarction Denies family history of Ovarian cancer Prostate cancer Hearing loss No family history of adverse response to anesthesia No family history of bleeding disorder Heart disease Allergies Colorectal cancer Stroke Asthma Social History Smoking Status: Former smoker Tobacco Type: Cigarettes Cigarettes Per Day: 10; Second Hand Exposure: No; Hx Alcohol Use: No Hx Substance Use: No Preferred Language: Lao Communication Ability: Effective Visual Impairment: No Limitations 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: Normal Hand Sizer Required: No Beliefs That Will Affect Care: None marital status: Current Living Situation: Spouse current occupational status: retired current occupation: retired Feels Safe at Home: Yes Safety Concerns: Feels Safe At This Time Childhood Exposure to Second-Hand Smoke: Yes caffeine: Yes Dental Care, Regularly: No Physical Activity Frequency: Does not Exercise Seatbelt Use: always Sunscreen Use: Yes Assistive Devices: Denture - Upper and Denture - Lower Review of Systems Review of Systems: as per HPI Physical Exam Constitutional: WD/WN, vitals as above cooperative; no acute distress Eyes: + anicteric sclerae ENMT: external ear and nose normal, oropharynx normal Neck: trachea midline Respiratory: normal respiratory effort; no respiratory distress and no labored breathing Auscultation: + wheezes (b/l upper lung chang) Cardiovascular: Rate/Rhythm: regular rate and regular rhythm Heart Sounds: normal S1, normal S2 and + murmur (systolic ejection ) Extremities: no pedal edema Gastrointestinal (Abdomen): normal bowel sounds, soft, nontender, no hepatosplenomegaly Musculoskeletal: Head/Neck/Chest: normocephalic and head atraumatic Skin: no rashes, warm and dry Psychiatric: A+Ox3, euthymic affect Results & Data Results & Data ([facility]) Vital Signs (Past 12 Hours) Vital Signs Temp Pulse Resp BP Pulse Ox 05/15/21 20:31 67 14 178/78 H 98 05/15/21 20:00 67 23 161/78 H 96 05/15/21 19:30 69 153/80 H 98 05/15/21 19:00 70 19 151/84 H 98 05/15/21 18:30 70 158/81 H 98 05/15/21 18:25 68 05/15/21 16:32 69 128/76 99 05/15/21 16:20 70 19 97 05/15/21 16:10 68 97 05/15/21 16:00 72 14 98 05/15/21 15:57 67 97 05/15/21 15:22 36.5 C 74 20 121/72 97 Supervising Physician Co-Signing Physician Notes Attending addendum: I have physically seen this patient, have supervised the medical residents activities, and agree with the H&P unless as otherwise noted. Assessment and Plan: Bright red blood per rectum- NPO H&H every 4 hours Holding Plavix and Xarelto, but not reversing unless there is more significant bleeding Famotidine 20 mg IV every 12 hours Consult gastroenterology Pulmonary emboli- Found 12/30 status post cholecystectomy If repeat CTA is negative for PE should consider discontinuance if there is no thrombophilias or other provoking factors for recurrence Remaining orders and notations as noted Resident Activity Tracking Resident Involvement: Resident Care Provided Care Provided: Adult Hospital Medicine (1) CAD (coronary artery disease) Associated angina: with unspecified angina Coronary Disease-Associated Artery/Lesion type: unspecified vessel or lesion type [place] vs. transplanted heart: [place] heart Qualified Code(s): I25.119 - Atherosclerotic heart disease of [place] coronary artery with unspecified angina pectoris (2) Pulmonary emboli Acute cor pulmonale presence: unspecified Chronicity: acute Pulmonary embolism type: unspecified Qualified Code(s): I26.99 - Other pulmonary embolism without acute cor pulmonale (3) HTN (hypertension) Hypertension type: essential hypertension Qualified Code(s): I10 - Essential (primary) hypertension
[2021-05-15] MEDS ORDERED: FAMOTIDINE 20MG/5ML IV PUSH IV STA (21:02)
[2021-05-15] MEDS ORDERED: ONDANSETRON INJ 2 MG/ML 2 ML VIAL IV PRN (23:34)
[2021-05-15] MEDS ORDERED: ACETAMINOPHEN 325 MG TAB PO PRN (23:34)
[2021-05-15] MEDS ORDERED: ALBUTEROL HFA 8 GM INHALER INH PRN (23:34)
[2021-05-16 00:25] LABS: Hematocrit (blood only) 38.4 % (42-52); Hemoglobin 12.4 g/dL (14.0-18.0)
[2021-05-16 06:18] LABS: Hematocrit (blood only) 39.3 % (42-52); Hemoglobin 12.8 g/dL (14.0-18.0)
[2021-05-16] MEDS: allopurinoL 100 MG TAB PO SCH (07:46)
[2021-05-16] MEDS: TOPIRAMATE 25 MG TAB PO SCH (07:47)
[2021-05-16] MEDS: EZETIMIBE 10 MG TABLET PO SCH (07:47)
--- NOTE | 2021-05-16 09:27 | Gastrointestinal Consultation ---
Date of Consultation May 16, 2021 Assessment & Plan (1) Rectal bleedin85 year old male anticoagulation on both Xarelto and plavix admitted w/ painless hematochezia, ddx outlet bleeding hemorrhoidal/diverticular vs other Trend H&H Monitor and document stools Clear liquids Start bowel prep w/ golytely NPO after midnight Consider diagnostic colonoscopy 05/17 especially if bleeding persists w/ prep Thank you for allowing us to participate in the care of this patient. Please call with any acute changes, questions or concerns. Please see addendum below with additional recommendation from my supervising physician. Supervising Physician Co-Signing Physician Notes I have seen and examined the patient with MITA Mcmanus whose note reflects our findings and plan. Multiple comorbidities including CAD and PE on Plavix and Xarelto admitted with painless rectal bleeding. Last colonoscopy over 20 years ago. Abd exam is benign. Anticoagulants to be held and follow H/H. Discussing possible colonoscopy tomorrow. History of Present Illness Reason for Consultation: rectal bleeding Requesting Physician: Rosa Attending Physician: Shar Lee, DO History of Present Illness 85 year old male with history of CAD (s/p stent placement x4) and a pulmonary embolism (on Xarelto) admitted w/ BRBPR. Notes was in his typical state of health, abd pain free, brown stools and then two days ago started with painless rectal bleeding. BRB, toilet bowel water, mixed with stool and on tissue. Each BM, noted more blood. Now suggests is just passing blood. No black stools. No abd pain, nausea,vomiting. He is hemodynamically stable, slight drift down in HGB w/o BUN elevation Allergies Allergy/AdvReac Type Severity Reaction Status Date / Time Cephalosporins Allergy Intermediate Rash Verified 05/15/21 15:57 fluticasone Allergy Intermediate Rash Verified 05/15/21 15:57 Iodinated Contrast Media Allergy Intermediate Hives Verified 05/15/21 15:57 Penicillins Allergy Intermediate Rash Verified 05/15/21 15:57 salmeterol Allergy Mild Rash Verified 05/15/21 15:57 cephalexin [From Keflex] Allergy Unknown Unknown Verified 05/15/21 15:57 pravastatin Allergy Unknown myalgias Verified 05/15/21 15:57 atorvastatin AdvReac Mild MUSCLE Verified 05/15/21 15:57 ACHES fluvastatin AdvReac Mild MUSCLE Verified 05/15/21 15:57 ACHES lisinopril AdvReac Mild Cough Verified 05/15/21 15:57 rosuvastatin AdvReac Mild MUSCLE Verified 05/15/21 15:57 ACHES Home Medications Medication Instructions Recorded Confirmed Type cholecalciferol (vitamin D3) 25 2,000 unit PO HS 06/25/18 05/15/21 History mcg (1,000 unit) capsule (Vitamin D3) nitroglycerin 0.4 mg sublingual 1 tab SUBLINGUAL UD PRN 06/25/18 05/15/21 History tablet (Nitrostat) zinc acetate 50 mg (zinc) capsule 50 mg PO DAILY 03/23/20 05/15/21 History (Galzin) albuterol sulfate 90 mcg/actuation 2 puffs INH QID PRN g 06/12/20 05/15/21 History aerosol inhaler topiramate 25 mg tablet (Topamax) 25 mg PO QAM #90 tab 06/12/20 05/15/21 Rx carvedilol 3.125 mg tablet (Coreg) 3.125 mg PO BID #180 tab 11/26/20 05/15/21 Rx ezetimibe 10 mg tablet (Zetia) 10 mg PO QAM #90 tab 01/16/21 05/15/21 Rx valsartan 40 mg tablet 20 mg PO QAM #30 tab 01/22/21 05/15/21 Rx clopidogrel 75 mg tablet 75 mg PO QAM #90 tab 02/03/21 05/15/21 Rx allopurinol 100 mg tablet 100 mg PO QAM #30 tab 04/02/21 05/15/21 Rx rivaroxaban 20 mg tablet (Xarelto) 20 mg PO HS 05/15/21 05/15/21 History verapamil 120 mg 24 hr 120 mg PO QAM 05/15/21 05/15/21 History capsule,extended release Patient History Medical History Abnormal CT scan, chest Asthma CAD (coronary artery disease) S/p 4 stents in 2016 S/p stent 09/24/19 to D1 Known occluded distal LAD per cardio records Cancer of lung 1999 LOBECTOMY. CHEMO AND RADIATION Cerebral aneurysm Followed by Neuro MRA 07/18/19= "Stable 2 mm aneurysm arising from the lateral margin of the left cavernous carotid. Stable 2 mm aneurysm arising from the ophthalmic portion of the right internal carotid." Per 06/12/20 neuro note- two tiny aneursyms- stable on recent MRI- do not warrant neurosurgeon referral at this time- will continue to monitor Chronic obstructive pulmonary disease CKD (chronic kidney disease) stage 3, GFR 30-59 ml/min COPD (chronic obstructive pulmonary disease) Pulmonary [place] Dyslipidemia Hemiplegic migraine Followed by Neuro, [place]- stable at 06/12/20 appt (follow up in one year) WAS THOUGHT TO HAVE STROKE BUT HEMIPLEGIC MIGRAINE AND NO PROBLEMS SINCE Hypertension Ischemic cardiomyopathy EF 45-50% Cardiology, ZANDER Sabillon Laryngopharyngeal reflux Nasal bleeding plan surgery 01/18 to cauterize Neural hearing loss Pancreatic cyst Paroxysmal atrial tachycardia Asymptomatic per cardio Pulmonary embolism and infarction Pulmonary emphysema Solitary pulmonary nodule STEMI (ST elevation myocardial infarction) 4 STENT 2015 1 STENT 09/24/19 Tinnitus of right ear Surgical History History of arthroplasty of left shoulder History of cardiac catheterization (~2015) 2016 [place] WITH 4 STENTS 2019 with 1 stent to D1- pt dx'ed with STEMI at that time FOLLOWS WITH DR SABILLON History of colonoscopy History of excision of mass neck 2018 Hx of cataract surgery right and left S/P appendectomy S/P excision of lipoma S/P laparoscopic cholecystectomy (01/28/21) Laparoscopy with enterolysis, laparoscopic cholecystectomy and limited laparotomy 01/28/21 Dr. Duvall S/P lobectomy of lung LEFT S/P total knee arthroplasty LEFT Stented coronary artery Family History Brother Cancer Hypertension Sister Cancer Hypertension Diabetes Mother Hypertension Diabetes Unknown Coronary heart disease Father Coronary heart disease Daughter Breast cancer Other Lung cancer Myocardial infarction Denies family history of Ovarian cancer Prostate cancer Hearing loss No family history of adverse response to anesthesia No family history of bleeding disorder Heart disease Allergies Colorectal cancer Stroke Asthma Social History Smoking Status: Former smoker Tobacco Type: Cigarettes Cigarettes Per Day: 10; Second Hand Exposure: No; Hx Alcohol Use: No Hx Substance Use: No Preferred Language: Polish Communication Ability: Effective Visual Impairment: No Limitations 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: Normal Disability Counselor Required: No Beliefs That Will Affect Care: None marital status: Current Living Situation: Spouse current occupational status: retired current occupation: retired Feels Safe at Home: Yes Safety Concerns: Feels Safe At This Time Childhood Exposure to Second-Hand Smoke: Yes caffeine: Yes Dental Care, Regularly: No Physical Activity Frequency: Does not Exercise Seatbelt Use: always Sunscreen Use: Yes Assistive Devices: Denture - Upper and Denture - Lower Review of Systems Review of Systems: All systems reviewed & are unremarkable except as noted in HPI & below Physical Exam Constitutional: WD/WN, vitals as above Neck: trachea midline, no thyromegaly Respiratory: normal respiratory effort, lungs clear to auscultation Cardiovascular: Heart Sounds: normal S1, normal S2 and + murmur Gastrointestinal (Abdomen): normal bowel sounds, soft, nontender, no hepatosplenomegaly Results & Data ([facility]) Vital Signs (Past 12 Hours) Vital Signs Temp Pulse Pulse Resp BP BP Pulse Ox 05/16/21 07:30 36.3 C L 74 18 145/81 H 97 05/16/21 04:00 36.4 C L 72 18 135/81 96 05/16/21 01:22 67 05/15/21 23:36 36.4 C L 68 18 126/72 99 05/15/21 23:33 36.4 C L 68 18 126/72 99 05/15/21 23:00 69 18 140/73 95 05/15/21 22:30 70 18 131/76 96 05/15/21 22:00 71 149/84 H 98 05/15/21 21:30 76 16 142/84 H 98 Laboratory Results 05/16/21 05/16/21 05/15/21 Range/Units 06:02 00:15 17:02 WBC (4.8-10.8) K/uL RBC (4.7-6.1) M/uL Hgb 12.8 L 12.4 L (14.0-18.0) g/dL Hct 39.3 L 38.4 L (42-52) % MCV (80-100) fL MCH (25-34) pg MCHC (32-36) g/dL RDW Std Deviation (36.4-46.3) fL RDW Coeff of Falguni (11.5-14.5) % Plt Count (130-400) K/uL MPV (7.4-10.4) fL Immature Gran % (Auto) % Neut % (Auto) % Lymph % (Auto) % Crook % (Auto) % Eos % (Auto) % Baso % (Auto) % Neut # (Auto) (1.4-6.5) K/uL Lymph # (Auto) (1.2-3.4) K/uL Crook # (Auto) (0.11-0.59) K/uL Eos # (Auto) (0-0.5) K/uL Baso # (Auto) (0-0.2) K/uL Immature Gran # (Auto) (0.00-0.02) K/uL PT INR APTT PTT Ratio Sodium (136-145) mmol/L Potassium 4.2 (3.5-5.1) mmol/L Chloride (98-107) mmol/L Carbon Dioxide (21-32) mmol/L Anion Gap (3-11) BUN (7-18) mg/dl Creatinine (0.6-1.4) mg/dl Est Cr Clr Drug Dosing ml/min Est GFR ( Amer) ml/min Est GFR (Non-Af Amer) ml/min BUN/Creatinine Ratio (10-20) Glucose (70-99) mg/dl Calcium (8.5-10.1) mg/dl Total Bilirubin (0.2-1) mg/dl AST 11 L (15-37) U/L ALT (12-78) U/L Alkaline Phosphatase (45-117) U/L Total Protein (6.4-8.2) gm/dl Albumin (3.4-5.0) gm/dl Globulin (2.5-4.0) gm/dl Albumin/Globulin Ratio (0.9-2) COVID-19 Eval Order SARS-CoV-2 (PCR) (Negative) Blood Type Antibody Screen 05/15/21 05/15/21 05/15/21 Range/Units 17:02 17:02 16:30 WBC (4.8-10.8) K/uL RBC (4.7-6.1) M/uL Hgb (14.0-18.0) g/dL Hct (42-52) % MCV (80-100) fL MCH (25-34) pg MCHC (32-36) g/dL RDW Std Deviation (36.4-46.3) fL RDW Coeff of Falguni (11.5-14.5) % Plt Count (130-400) K/uL MPV (7.4-10.4) fL Immature Gran % (Auto) % Neut % (Auto) % Lymph % (Auto) % [place] % (Auto) % Eos % (Auto) % Baso % (Auto) % Neut # (Auto) (1.4-6.5) K/uL Lymph # (Auto) (1.2-3.4) K/uL Crook # (Auto) (0.11-0.59) K/uL Eos # (Auto) (0-0.5) K/uL Baso # (Auto) (0-0.2) K/uL Immature Gran # (Auto) (0.00-0.02) K/uL PT 12.2 H INR 1.2 H APTT 34.5 H PTT Ratio 1.3 Sodium (136-145) mmol/L Potassium (3.5-5.1) mmol/L Chloride (98-107) mmol/L Carbon Dioxide (21-32) mmol/L Anion Gap (3-11) BUN (7-18) mg/dl Creatinine (0.6-1.4) mg/dl Est Cr Clr Drug Dosing ml/min Est GFR ( Amer) ml/min Est GFR (Non-Af Amer) ml/min BUN/Creatinine Ratio (10-20) Glucose (70-99) mg/dl Calcium (8.5-10.1) mg/dl Total Bilirubin (0.2-1) mg/dl AST (15-37) U/L ALT (12-78) U/L Alkaline Phosphatase (45-117) U/L Total Protein (6.4-8.2) gm/dl Albumin (3.4-5.0) gm/dl Globulin (2.5-4.0) gm/dl Albumin/Globulin Ratio (0.9-2) COVID-19 Eval Order SARS-CoV-2 (PCR) NEGATIVE (Negative) Blood Type O Positive Antibody Screen NEGATIVE 05/15/21 05/15/21 05/15/21 Range/Units 16:30 15:54 15:54 WBC (4.8-10.8) K/uL RBC (4.7-6.1) M/uL Hgb (14.0-18.0) g/dL Hct (42-52) % MCV (80-100) fL MCH (25-34) pg MCHC (32-36) g/dL RDW Std Deviation (36.4-46.3) fL RDW Coeff of Falguni (11.5-14.5) % Plt Count (130-400) K/uL MPV (7.4-10.4) fL Immature Gran % (Auto) % Neut % (Auto) % Lymph % (Auto) % [place] % (Auto) % Eos % (Auto) % Baso % (Auto) % Neut # (Auto) (1.4-6.5) K/uL Lymph # (Auto) (1.2-3.4) K/uL [place] # (Auto) (0.11-0.59) K/uL Eos # (Auto) (0-0.5) K/uL Baso # (Auto) (0-0.2) K/uL Immature Gran # (Auto) (0.00-0.02) K/uL PT Cancelled INR Cancelled APTT Cancelled PTT Ratio Cancelled Sodium 140 (136-145) mmol/L Potassium (3.5-5.1) mmol/L Chloride 111 H (98-107) mmol/L Carbon Dioxide 26 (21-32) mmol/L Anion Gap 3.0 (3-11) BUN 18 (7-18) mg/dl Creatinine 1.24 (0.6-1.4) mg/dl Est Cr Clr Drug Dosing 48.7 ml/min Est GFR ( Amer) 61.5 ml/min Est GFR (Non-Af Amer) 53.1 ml/min BUN/Creatinine Ratio 14.1 (10-20) Glucose 90 (70-99) mg/dl Calcium 8.9 (8.5-10.1) mg/dl Total Bilirubin 1.1 H (0.2-1) mg/dl AST (15-37) U/L ALT 24 (12-78) U/L Alkaline Phosphatase 81 (45-117) U/L Total Protein 7.3 (6.4-8.2) gm/dl Albumin 3.5 (3.4-5.0) gm/dl Globulin 3.8 (2.5-4.0) gm/dl Albumin/Globulin Ratio 0.9 (0.9-2) COVID-19 Eval Order Covid19 at [facility] SARS-CoV-2 (PCR) (Negative) Blood Type Antibody Screen 05/15/21 Range/Units 15:54 WBC 5.15 (4.8-10.8) K/uL RBC 4.84 (4.7-6.1) M/uL Hgb 13.8 L (14.0-18.0) g/dL Hct 42.7 (42-52) % MCV 88.2 (80-100) fL MCH 28.5 (25-34) pg MCHC 32.3 (32-36) g/dL RDW Std Deviation 51.1 H (36.4-46.3) fL RDW Coeff of Falguni 15.7 H (11.5-14.5) % Plt Count 173 (130-400) K/uL MPV 11.7 H (7.4-10.4) fL Immature Gran % (Auto) 0.2 % Neut % (Auto) 61.6 % Lymph % (Auto) 25.2 % Crook % (Auto) 9.1 % Eos % (Auto) 2.9 % Baso % (Auto) 1.0 % Neut # (Auto) 3.17 (1.4-6.5) K/uL Lymph # (Auto) 1.30 (1.2-3.4) K/uL Crook # (Auto) 0.47 (0.11-0.59) K/uL Eos # (Auto) 0.15 (0-0.5) K/uL Baso # (Auto) 0.05 (0-0.2) K/uL Immature Gran # (Auto) 0.01 (0.00-0.02) K/uL PT INR APTT PTT Ratio Sodium (136-145) mmol/L Potassium (3.5-5.1) mmol/L Chloride (98-107) mmol/L Carbon Dioxide (21-32) mmol/L Anion Gap (3-11) BUN (7-18) mg/dl Creatinine (0.6-1.4) mg/dl Est Cr Clr Drug Dosing ml/min Est GFR ( Amer) ml/min Est GFR (Non-Af Amer) ml/min BUN/Creatinine Ratio (10-20) Glucose (70-99) mg/dl Calcium (8.5-10.1) mg/dl Total Bilirubin (0.2-1) mg/dl AST (15-37) U/L ALT (12-78) U/L Alkaline Phosphatase (45-117) U/L Total Protein (6.4-8.2) gm/dl Albumin (3.4-5.0) gm/dl Globulin (2.5-4.0) gm/dl Albumin/Globulin Ratio (0.9-2) COVID-19 Eval Order SARS-CoV-2 (PCR) (Negative) Blood Type Antibody Screen
--- NOTE | 2021-05-16 10:32 | Hospitalist Progress Note ---
Date of Service May 16, 2021 Assessment & Plan (1) Bright red blood per rectum: Plan: Mr. Singleton is an 85 yo male with PMHx significant for CAD (s/p stent x4 ~six years ago, on Plavix), h/o provoked PE after lap samy in 01/2021 (on Xarelto since then), COPD (on Albuterol only, without supplemental O2), h/o TB (s/p partial resection of left lung in 1998), and CKDIII, who was admitted to [facility] on 05/15 for bright red blood per rectum. Bright Red Blood Per Rectum Symptoms x24 hours, with increased loose BMs. Family h/o CRC. Suspect acute lower GI bleed due to AVM vs bleeding diverticula (seen on previous CT A/P) vs CRC. Requires further evaluation. - GI consulted - appreciate recs - clear liquid diet with bowel prep for colonoscopy tomorrow - Xarelto/Plavix held on admission - Hgb remains stable at 12-13 - H&H this evening and CBC in the AM - transfuse for Hgb <8 (CAD history) CAD/HTN - home meds held on admission (plavix, valsartan, verapamil and carvedilol) due to GI bleed - re-start anti-hypertensives if remains hemodynamically stable and H/H stable H/o Pulmonary Embolus Diagnosed in December 2020 follow a cholecystectomy (provoked). Initial recs for 3 months of DOAC but later recs for 3-6 months DOAC depending on signs of serious bleeding. S/p >3 months of DOAC therapy at this time. - hold Xarelto for now in context of possible lower GI bleed, will consider stopping altogether pending colonoscopy findings Gout - continue home allopurinol Dyslipidemia - continue home Ezetimibe (h/o ASEs with multiple statins) COPD - continue home Albuterol PRN - recommend discussion about addition of daily anti-cholinergic inhaler with Rn Anesthesiology after discharge DVT ppx: SCDs Diet: clear liquid diet with bowel prep, NPO after midnight for colonoscopy Dispo: Med/sug with tele Code: Full code (2) Pulmonary emboli: (3) HTN (hypertension): (4) Gout: (5) Dyslipidemia: (6) Chronic obstructive pulmonary disease: (7) CAD (coronary artery disease): Admission and Anticipated Discharge Date Admission Date: May 15, 2021 Supervising Physician Co-Signing Physician Notes I personally examined the patient and verified all mccord points of history and exam, discussed case, and agree with decision making with Dr Miller Does have some ongoing bright red blood per rectum. No weakness/lightheadedness/fatigue/faintness. For colonoscopy tomorrow. Vitals noted, upon entering the room we were finding Agnieszka singleton laying in bed with his sitting at the side, no distress. HEENT normocephalic atraumatic mucous membranes moist. Breathing unlabored no accessory muscle use good effort. Abdomen soft may be mildly distended nontender no masses organomegaly. Extremities without cyanosis. Neuro without focal deficits. Bright red blood per rectumfortunately not a lot of significant acute blood loss anemia to show for itstrongly suspect diverticular versus AVM. Agree completely with colonoscopy. For now hold anticoagulant and antiplatelet (see below) Venous thromboembolic diseaseconfirmed with patientprovoked, and greater than 3 months ago. Since he is feeling better, and the situation was provoked clot, and now he is having bleeding, it seems safest to discontinue Xarelto at this time. Coronary artery diseaseconfirmed with patient stents were about 6 years agotemporarily hold antiplatelet, resume as soon as is safewill be able to risk triage this by colonoscopy. Otherwise as above. Subjective Patient had two episodes of BRBPR since admission. Patient reports acute-onset of 4 episodes of BRBPR yesterday without associated pain. Denies h/o hemorrhoids or anal fissures. Never had these symptoms before. Father had colon cancer in his 50s. Patient has no alcohol use or liver disease. Currently he denies fever/chills, lightheadedness/dizziness, chest pain, palpitations, SOB, cough, N/V, abdominal pain, rash. Review of Systems Review of Systems: All systems reviewed & are unremarkable except as noted in Subjective Physical Exam Physical Exam: General: A&Ox3. NAD. Cooperative. HEENT: Atraumatic, normocephalic. Pulm: CTAB A&P. -wheezes, -rales, -rhonchi. Symmetrical chest rise. No increase work of breathing. No respiratory distress. Cardiac: RRR, -mrg. Radial pulses intact and symmetrical. Abdominal: soft, non-tender, non-distended, BS x 4 Skin: warm, dry, no rash Results & Data Results & Data ([facility]) Vital Signs (Past 12 Hours) Vital Signs Temp Pulse Pulse Resp BP BP Pulse Ox 05/16/21 07:30 36.3 C L 74 18 145/81 H 97 05/16/21 04:00 36.4 C L 72 18 135/81 96 05/16/21 01:22 67 05/15/21 23:36 36.4 C L 68 18 126/72 99 05/15/21 23:33 36.4 C L 68 18 126/72 99 05/15/21 23:00 69 18 140/73 95 Resident Activity Tracking Resident Involvement: Resident Care Provided Care Provided: Adult Hospital Medicine (1) CAD (coronary artery disease) Associated angina: with unspecified angina Coronary Disease-Associated Artery/Lesion type: unspecified vessel or lesion type [place] vs. transplanted heart: [place] heart Qualified Code(s): I25.119 - Atherosclerotic heart disease of [place] coronary artery with unspecified angina pectoris (2) Pulmonary emboli Acute cor pulmonale presence: unspecified Chronicity: acute Pulmonary embolism type: unspecified Qualified Code(s): I26.99 - Other pulmonary embolism without acute cor pulmonale (3) HTN (hypertension) Hypertension type: essential hypertension Qualified Code(s): I10 - Essential (primary) hypertension
[2021-05-16 11:07] LABS: Hematocrit (blood only) 41.2 % (42-52); Hemoglobin 13.8 g/dL (14.0-18.0)
[2021-05-16] MEDS ORDERED: LAVAGE SOLUTION 4000ML PO SCH (15:00)
--- NOTE | 2021-05-16 17:04 | Billing Data ---
Date of Service May 16, 2021 Coding Level of Care Code 75319 Subseq Obs Care Lvl 3
[2021-05-16 17:41] LABS: Hematocrit (blood only) 40.7 % (42-52); Hemoglobin 13.3 g/dL (14.0-18.0)
--- NOTE | 2021-05-17 02:02 | Billing Data ---
Date of Service May 17, 2021 Coding Level of Care Code INT OBSERVATION CARE 70M LVL 3
[2021-05-17 06:48] LABS: Basophils # (auto) 0.04 K/uL (0-0.2); Basophils % (auto) 0.8 %; Eosinophils # (auto) 0.13 K/uL (0-0.5); Eosinophils % (auto) 2.5 %; Hematocrit (blood only) 42.5 % (42-52); Hemoglobin 13.9 g/dL (14.0-18.0); Immature Granulocytes # (auto) 0.01 K/uL (0.00-0.02); Immature Granulocytes % (auto) 0.2 %; Lymphocytes # (auto) 1.27 K/uL (1.2-3.4); Lymphocytes % (auto) 24.3 %; Mean Corpuscular Hemoglobin 28.3 pg (25-34); Mean Corpuscular Hgb Conc 32.7 g/dL (32-36); Mean Corpuscular Volume 86.6 fL (80-100); Mean Platelet Volume 10.8 fL (7.4-10.4); Monocytes # (auto) 0.54 K/uL (0.11-0.59); Monocytes % (auto) 10.3 %; Neutrophils # (auto) 3.23 K/uL (1.4-6.5); Neutrophils % (auto) 61.9 %; Platelet Count 166 K/uL (130-400); RDW Coefficient of Variation 15.8 % (11.5-14.5); RDW Standard Deviation 50.3 fL (36.4-46.3); Red Blood Count 4.91 M/uL (4.7-6.1); White Blood Count 5.22 K/uL (4.8-10.8)
[2021-05-17 06:57] LABS: INR 1.1 (0.9-1.1); Prothrombin Time 10.9 Seconds (9.0-12.0)
[2021-05-17 07:20] LABS: BUN Creatinine Ratio 11.3 (10-20); Creatinine Clr Calc Pharmacy 54.9 ml/min; Est GFR (African American) 71.1 ml/min; Est GFR (Non-African American) 61.3 ml/min; Magnesium 2.2 mg/dl (1.8-2.4); Potassium 3.6 mmol/L (3.5-5.1)
[2021-05-17 07:21] LABS: Phosphorus 2.9 mg/dl (2.5-4.9)
--- NOTE | 2021-05-17 08:52 | Communication Note ---
Date of Service: May 17, 2021 Pt had ongoing rectal bleeding with prep until around 0300. Notes this AM he had a clear stool. Feeling well. No abd pain. No nausea/vomiting. Remains NPO. Colonoscopy today.
[2021-05-17] MEDS: EZETIMIBE 10 MG TABLET PO SCH (08:58)
[2021-05-17] MEDS: allopurinoL 100 MG TAB PO SCH (08:58)
[2021-05-17] MEDS: TOPIRAMATE 25 MG TAB PO SCH (08:58)
--- NOTE | 2021-05-17 10:11 | Discharge Summary ---
Date of Service May 17, 2021 Admission HPI Per Admitting Provider Mr. Singleton is an 85 yo gentleman with a PMHX of CAD (s/p stent placement x4) and a pulmonary embolism (on Xarelto) who was referred to the [facility] ED by his family doctor for evaluation of bright red blood per rectum. Yesterday, Mr. Singleton noticed some blood on the toilet paper after wiping - it was a small amount so he did not think much of it. Today, he had 3 bloody additional bowel movements - blood filled the toilet bowl each time. He denies any chest pain, SOB or lightheadedness. No hematemesis or hematuria. He was placed on Xarelto in December 2020 after he developed a post-operative pulmonary embolism. He denies any previous GI bleeds or brain bleeds. His last colonoscopy was ~ 20 years ago, it was normal. Social Hx: No etoh. Former smoker. In the ED, he was febrile and hemodynamically stable. His Hgb was 13.8. His WBC and platelet levels were normal. His INR was 1.2. His CMP was normal. His COVID 19 testing was negative. He was given 1 liter of NSS. Admission Exam Per Admitting Provider Constitutional: WD/WN, vitals as above cooperative; no acute distress Eyes: + anicteric sclerae ENMT: external ear and nose normal, oropharynx normal Neck: trachea midline Respiratory: normal respiratory effort; no respiratory distress and no labored breathing Auscultation: + wheezes (b/l upper lung chang) Cardiovascular: Rate/Rhythm: regular rate and regular rhythm Heart Sounds: normal S1, normal S2 and + murmur (systolic ejection ) Extremities: no pedal edema Gastrointestinal (Abdomen): normal bowel sounds, soft, nontender, no hepatosplenomegaly Musculoskeletal: Head/Neck/Chest: normocephalic and head atraumatic Skin: no rashes, warm and dry Psychiatric: A+Ox3, euthymic affect Principal Diagnosis Acute lower GI bleed Discharge Exam General: A&Ox3. NAD. Cooperative. HEENT: Atraumatic, normocephalic. Pulm: CTAB A&P. -wheezes, -rales, -rhonchi. Symmetrical chest rise. No increase work of breathing. No respiratory distress. Cardiac: RRR, -mrg. Radial pulses intact and symmetrical. Abdominal: soft, non-tender, non-distended, BS x 4 Skin: warm, dry, no rash Discharge Data Allergies Allergy/AdvReac Type Severity Reaction Status Date / Time Cephalosporins Allergy Intermediate Rash Verified 05/15/21 15:57 fluticasone Allergy Intermediate Rash Verified 05/15/21 15:57 Iodinated Contrast Media Allergy Intermediate Hives Verified 05/15/21 15:57 Penicillins Allergy Intermediate Rash Verified 05/15/21 15:57 salmeterol Allergy Mild Rash Verified 05/15/21 15:57 cephalexin [From Keflex] Allergy Unknown Unknown Verified 05/15/21 15:57 pravastatin Allergy Unknown myalgias Verified 05/15/21 15:57 atorvastatin AdvReac Mild MUSCLE Verified 05/15/21 15:57 ACHES fluvastatin AdvReac Mild MUSCLE Verified 05/15/21 15:57 ACHES lisinopril AdvReac Mild Cough Verified 05/15/21 15:57 rosuvastatin AdvReac Mild MUSCLE Verified 05/15/21 15:57 ACHES Consultations 05/15/21 17:18 ED Decision to Admit Stat 05/15/21 19:41 ED Decision to Admit Stat 05/15/21 20:48 Consult Gastroenterology Routine Procedures Performed Operation Date: 05/17/21 15:45 <No data on this case meets the specified criteria> Hospital Course (1) Bright red blood per rectum: Mr. Singleton is an 85 yo male with PMHx significant for CAD (s/p stent x4 ~six years ago, on Plavix), h/o provoked PE after lap samy in 01/2021 (on Xarelto since then), COPD (on Albuterol only, without supplemental O2), h/o TB (s/p partial resection of left lung in 1998), and CKDIII, who was admitted to [facility] from 05/15 to 05/17 for bright red blood per rectum. Bright Red Blood Per Rectum, resolved Symptoms x24 hours, with increased loose BMs. Symptoms resolved as of 05/17. Colonoscopy on 05/17 showed sigmoid diverticulosis and non-bleeding internal hemorrhoids. Suspect acute lower GI bleed due to bleeding diverticula vs AVM. - GI consulted - appreciate recs - no further eval/management after colonoscopy - Xarelto/Plavix held on admission - will stop Xarelto (see below) and hold Plavix for 2-3 days after discharge, before re-starting - Hgb remained stable at 12-13 throughout hospitalization, without need for transfusions - f/u with PCP after discharge CAD/HTN - home meds held on admission (plavix, valsartan, verapamil and carvedilol) due to GI bleed - all anti-hypertensive medications re-started on discharge - hold Plavix for now - plan to re-start this medication in 2-3 days as stated above - f/u with Dr. Sahu later this month as previously scheduled H/o Pulmonary Embolus Diagnosed in December 2020 follow a cholecystectomy (provoked). Initial recs for 3 months of DOAC but later recs for 3-6 months DOAC depending on signs of serious bleeding. S/p >3 months of DOAC therapy at this time. - discontinue Xarelto in context of lower GI bleed, given that PE was provoked, the patient does not have ongoing hypercoagulative risks, and he already finished more than 3 months of DOAC therapy Gout - continue home allopurinol Dyslipidemia - continue home Ezetimibe (h/o ASEs with multiple statins) COPD - continue home Albuterol PRN - recommend discussion about addition of daily anti-cholinergic inhaler with Machine Puller And Laster after discharge (2) Pulmonary emboli: (3) HTN (hypertension): (4) Gout: (5) Dyslipidemia: (6) Chronic obstructive pulmonary disease: (7) CAD (coronary artery disease): Total Time Total Time Spent Total Time Spent (In Minutes): <30 minutes Discharge Plan Discharge Items Patient Disposition: Home - Self-Care Reason For Visit: GI BLEED Discharge Diagnosis: Acute lower GI bleed Activity: Per Instructions section Non-emergency contact: Primary Care Provider, Retail Sales Clerk and Machine Puller And Laster Call non-emergency contact if: you have any medication questions and your symptoms worsen Follow-up/Referrals: Froilan Sahu MD [Physician] - (schedule f/u in 2-3 weeks) Shan Torres DO [Primary Care Provider] - (schedule f/u in 1 week) Diet: Heart Healthy Addtl Attending Provider Instructions: You were admitted to [facility] from 05/15 - 05/17 for a lower GI bleed. Both of your blood thinners were initially held due to acute GI bleeding, and our GI doctor was consulted. You had a colonoscopy on 05/17 that showed a sigmoid diverticulum and internal hemorrhoids, but no active bleeding. Your bleeding most likely came from the diverticulum and spontaneously stopped without intervention. You will be discharged in good, stable condition on 05/17. You should stop taking Xarelto, as you already took it for more than 3 months. You will need to re- start Plavix on Thursday. Please follow up with Dr. Sahu, your customer service associate, to discuss further changes to your blood thinners. Please continue to take your other medications as scheduled. Pending Studies at Discharge: No Stand-Alone Forms: My [facility], Smoking Cessation Medications and DC Order Prescriptions: Continued carvedilol [Coreg] 3.125 mg tablet 3.125 mg PO BID Qty: 180 RF: 3 ezetimibe [Zetia] 10 mg tablet 10 mg PO QAM Qty: 90 RF: 3 valsartan 40 mg tablet 20 mg PO QAM Qty: 30 RF: 11 allopurinol 100 mg tablet 100 mg PO QAM Qty: 30 RF: 3 topiramate [Topamax] 25 mg tablet 25 mg PO QAM Qty: 90 RF: 3 Galzin 50 mg (zinc) capsule 50 mg PO DAILY RF: 0 albuterol sulfate 90 mcg/actuation HFA aerosol inhaler 2 puffs INH QID PRN (Reason: Wheezing) RF: 0 nitroglycerin [Nitrostat] 0.4 mg Tablet, Sublingual 1 tab Sublingual UD PRN (Reason: Chest Pain) RF: 0 cholecalciferol (vitamin D3) [Vitamin D3] 1,000 unit Capsule 2,000 unit PO HS RF: 0 clopidogrel 75 mg Tablet 75 mg PO QAM Qty: 90 RF: 3 verapamil 120 mg capsule,ext rel. pellets 24 hr 120 mg PO QAM RF: 0 Discontinued Xarelto 20 mg tablet 20 mg PO HS RF: 0 Discharge Orders: Discharge Order (Routine); Ordered 05/17/21 Ordered By: Erwin Miller Admission Data Admit Date/Time: 05/15/21 22:33 Attending Provider: Shar Lee Admit Provider: Halle Gale Primary Care Provider: Shan Torres Other Providers: Luis Felipe Kaye ; Vaughn Winslow ; Facundo Moreau Other Interventions: Discharge Summary Assessment (RN) Last Done: 05/17/21 15:15 Supervising Physician Co-Signing Physician Notes I personally examined the patient and verified all mccord points of history and exam, discussed case, and agree with decision making with Dr Miller Feeling better, eating well. Very much wants to go home. Colonoscopy r eiterated as far as explaining bleeding to patient and . Both expressed good understanding. Vitals noted, awake and alert, pleasant, no distress. HEENT normocephalic atraumatic mucous membranes moist. Breathing unlabored no accessory muscle use good effort. Extremities without cyanosis. Neuro without focal deficits. Essentially clears his tray of chicken rice and broccoli while we are talking. Bright red blood per rectumfortunately not a lot of significant acute blood loss anemia to show for itappears to have been diverticular. Stable for home, off anticoagulation (see below) okay to resume antiplatelet in a few days. Venous thromboembolic diseaseconfirmed with patientprovoked, and greater than 3 months ago. Since he is feeling better, and the VTE situation was provoked c lot, and now he is having bleeding, it seems safest to discontinue Xarelto at this time. Coronary artery diseaseconfirmed with patient stents were about 6 years agotemporarily hold antiplatelet, appears safe to resume in a few days with close follow-up. Otherwise as above. Stable for home. Resident Activity Tracking Resident Involvement: Resident Care Provided Care Provided: Adult Hospital Medicine
--- NOTE | 2021-05-17 11:37 | Anesthesiology Consultation ---
Date of Service May 17, 2021 Assessment & Plan Chart Review Chart Review: Acceptable Risk for Surgery, Patient NOT seen in Pre Admission Testing and entry level accounting clerk initiated Consults Requested none Proposed Anesthesia Risk / Benefits Reviewed With: PT / POA / Parent / Guardian, Accepts Plan and Informed Consent Obtained History Surgery Operation Date: 05/17/21 15:45 Proposed Procedures p Colonoscopy Dr Shoemaker - Cortney Shoemaker, DO Height/Weight Height: 6 ft Weight: 79.7 kg Allergies Allergy/AdvReac Type Severity Reaction Status Date / Time Cephalosporins Allergy Intermediate Rash Verified 05/15/21 15:57 fluticasone Allergy Intermediate Rash Verified 05/15/21 15:57 Iodinated Contrast Media Allergy Intermediate Hives Verified 05/15/21 15:57 Penicillins Allergy Intermediate Rash Verified 05/15/21 15:57 salmeterol Allergy Mild Rash Verified 05/15/21 15:57 cephalexin [From Keflex] Allergy Unknown Unknown Verified 05/15/21 15:57 pravastatin Allergy Unknown myalgias Verified 05/15/21 15:57 atorvastatin AdvReac Mild MUSCLE Verified 05/15/21 15:57 ACHES fluvastatin AdvReac Mild MUSCLE Verified 05/15/21 15:57 ACHES lisinopril AdvReac Mild Cough Verified 05/15/21 15:57 rosuvastatin AdvReac Mild MUSCLE Verified 05/15/21 15:57 ACHES Medications Home Medications Medication Instructions Recorded Confirmed Last Taken cholecalciferol (vitamin D3) 25 2,000 unit PO HS 06/25/18 05/15/21 05/14/21 mcg (1,000 unit) capsule (Vitamin D3) nitroglycerin 0.4 mg sublingual 1 tab SUBLINGUAL UD PRN 06/25/18 05/15/21 03/09/20 05:00 tablet (Nitrostat) 2 tablets zinc acetate 50 mg (zinc) capsule 50 mg PO DAILY 03/23/20 05/15/21 01/30/21 (Galzin) albuterol sulfate 90 mcg/actuation 2 puffs INH QID PRN g 06/12/20 05/15/21 01/27/21 08:00 aerosol inhaler topiramate 25 mg tablet (Topamax) 25 mg PO QAM #90 tab 06/12/20 05/15/21 08/01/30 carvedilol 3.125 mg tablet (Coreg) 3.125 mg PO BID #180 tab 11/26/20 05/15/21 05/15/21 ezetimibe 10 mg tablet (Zetia) 10 mg PO QAM #90 tab 01/16/21 05/15/21 05/15/21 valsartan 40 mg tablet 20 mg PO QAM #30 tab 01/22/21 05/15/21 05/15/21 clopidogrel 75 mg tablet 75 mg PO QAM #90 tab 02/03/21 05/15/21 05/15/21 allopurinol 100 mg tablet 100 mg PO QAM #30 tab 04/02/21 05/15/21 05/15/21 rivaroxaban 20 mg tablet (Xarelto) 20 mg PO HS 05/15/21 05/15/21 05/14/21 verapamil 120 mg 24 hr 120 mg PO QAM 05/15/21 05/15/21 05/15/21 capsule,extended release Active Medications Generic Name Dose Route Start Last Admin Trade Name Dennise PRN Reason Stop Dose Admin Allopurinol 100 mg 05/16/21 09:00 05/17/21 08:58 Allopurinol 100 Mg Tab PO 06/15/21 08:59 100 mg QAM DALLIN Administration Ezetimibe 10 mg 05/16/21 09:00 05/17/21 08:58 Ezetimibe 10 Mg Tablet PO 06/15/21 08:59 10 mg QAM DALLIN Administration Topiramate 25 mg 05/16/21 09:00 05/17/21 08:58 Topiramate 25 Mg Tab PO 06/15/21 08:59 25 mg QAM DALLIN Administration Past Medical History Medical History Abnormal CT scan, chest Asthma CAD (coronary artery disease) S/p 4 stents in 2016 S/p stent 09/24/19 to D1 Known occluded distal LAD per cardio records Cancer of lung 1999 LOBECTOMY. CHEMO AND RADIATION Cerebral aneurysm Followed by Neuro MRA 07/18/19= "Stable 2 mm aneurysm arising from the lateral margin of the left cavernous carotid. Stable 2 mm aneurysm arising from the ophthalmic portion of the right internal carotid." Per 06/12/20 neuro note- two tiny aneursyms- stable on recent MRI- do not warrant neurosurgeon referral at this time- will continue to monitor Chronic obstructive pulmonary disease CKD (chronic kidney disease) stage 3, GFR 30-59 ml/min COPD (chronic obstructive pulmonary disease) Pulmonary [place] Dyslipidemia Hemiplegic migraine Followed by Neuro, [place]- stable at 06/12/20 appt (follow up in one year) WAS THOUGHT TO HAVE STROKE BUT HEMIPLEGIC MIGRAINE AND NO PROBLEMS SINCE Hypertension Ischemic cardiomyopathy EF 45-50% CardiologyZANDER Laryngopharyngeal reflux Nasal bleeding plan surgery 01/18 to cauterize Neural hearing loss Pancreatic cyst Paroxysmal atrial tachycardia Asymptomatic per cardio Pulmonary embolism and infarction Pulmonary emphysema Solitary pulmonary nodule STEMI (ST elevation myocardial infarction) 4 STENT 2015 1 STENT 09/24/19 Tinnitus of right ear Past Family History Family History Brother Cancer Hypertension Sister Cancer Hypertension Diabetes Mother Hypertension Diabetes Unknown Coronary heart disease Father Coronary heart disease Daughter Breast cancer Other Lung cancer Myocardial infarction Denies family history of Ovarian cancer Prostate cancer Hearing loss No family history of adverse response to anesthesia No family history of bleeding disorder Heart disease Allergies Colorectal cancer Stroke Asthma Past Surgical History Surgical History History of arthroplasty of left shoulder History of cardiac catheterization (~2015) 2016 [facility] WITH 4 STENTS 2018 with 1 stent to D1- pt dx'ed with STEMI at that time FOLLOWS WITH DR SABILLON History of colonoscopy History of excision of mass neck 2018 Hx of cataract surgery right and left S/P appendectomy S/P excision of lipoma S/P laparoscopic cholecystectomy (01/28/21) Laparoscopy with enterolysis, laparoscopic cholecystectomy and limited lap arotomy 01/28/21 Dr. Duvall S/P lobectomy of lung LEFT S/P total knee arthroplasty LEFT Stented coronary artery Social History Smoking Status: Former smoker tobacco type: cigarettes Smoking cigarettes per day: 10 Hx Alcohol Use: No Hx Substance Use: No substance use type: does not use Physical Exam Vital Signs Last Vital Signs Temp 36.6 C 05/17/21 11:32 Pulse 81 05/17/21 11:32 Resp 18 05/17/21 11:32 BP 155/86 H 05/17/21 11:32 Pulse Ox 98 05/17/21 11:32 Testing Laboratory Results 05/17/21 06:29 05/17/21 06:29 PT 10.9 Seconds (9.0-12.0) 05/17/21 06:29 INR 1.1 (0.9-1.1) 05/17/21 06:29 APTT 34.5 Seconds (21.0-31.0) H 05/15/21 17:02 Blood Type O Positive 05/15/21 17:02 Antibody Screen NEGATIVE 05/15/21 17:02 Electrocardiogram Date: 05/15/21 Normal sinus rhythm Right bundle branch block Left anterior fascicular block Bifascicular block Septal infarct , age undetermined Abnormal ECG When compared with ECG of 02-FEB-2021 13:06, Right bundle branch block is now Present Septal infarct is now Present Chest X-Ray Date: 02/01/21 XR chest 1V portable HISTORY: Pneumonia. Shortness of breath. Follow-up. COMPARISON: Chest 01/31/2021. FINDINGS: Stable postoperative changes within the left hemithorax with associated volume loss. No pneumothorax. No pleural effusions. The right midlung zone airspace opacity has slightly improved. Mild emphysema. The heart is normal in size. IMPRESSION: Slight improved aeration within the right midlung zone airspace opacity. This likely represents a resolving pneumonia. Echocardiogram Date: 01/31/21 EF: 45-50 RWMA: + hypokinetic
[2021-05-17] MEDS ORDERED: PROPOFOL IV EMULSION 10 MG/ML 20 ML VIAL IV ONE (12:47)
--- NOTE | 2021-05-17 12:49 | History & Physical Report ---
Date of Service May 17, 2021 Assessment & Plan (1) Rectal bleeding: Plan: 85 year old male anticoagulation on both Xarelto and plavix admitted w/ painless hematochezia, ddx outlet bleeding hemorrhoidal/diverticular vs other Colonoscopy today Admission and Anticipated Discharge Date Admission Date: May 15, 2021 History of Present Illness Chief Complaint: rectal bleeding Primary Care Provider: Shan Torres, DO rectal bleeding Allergies Allergy/AdvReac Type Severity Reaction Status Date / Time Cephalosporins Allergy Intermediate Rash Verified 05/15/21 15:57 fluticasone Allergy Intermediate Rash Verified 05/15/21 15:57 Iodinated Contrast Media Allergy Intermediate Hives Verified 05/15/21 15:57 Penicillins Allergy Intermediate Rash Verified 05/15/21 15:57 salmeterol Allergy Mild Rash Verified 05/15/21 15:57 cephalexin [From Keflex] Allergy Unknown Unknown Verified 05/15/21 15:57 pravastatin Allergy Unknown myalgias Verified 05/15/21 15:57 atorvastatin AdvReac Mild MUSCLE Verified 05/15/21 15:57 ACHES fluvastatin AdvReac Mild MUSCLE Verified 05/15/21 15:57 ACHES lisinopril AdvReac Mild Cough Verified 05/15/21 15:57 rosuvastatin AdvReac Mild MUSCLE Verified 05/15/21 15:57 ACHES Home Medications Medication Instructions Recorded Confirmed Type cholecalciferol (vitamin D3) 25 2,000 unit PO HS 06/25/18 05/15/21 History mcg (1,000 unit) capsule (Vitamin D3) nitroglycerin 0.4 mg sublingual 1 tab SUBLINGUAL UD PRN 06/25/18 05/15/21 History tablet (Nitrostat) zinc acetate 50 mg (zinc) capsule 50 mg PO DAILY 03/23/20 05/15/21 History (Galzin) albuterol sulfate 90 mcg/actuation 2 puffs INH QID PRN g 06/12/20 05/15/21 History aerosol inhaler topiramate 25 mg tablet (Topamax) 25 mg PO QAM #90 tab 06/12/20 05/15/21 Rx carvedilol 3.125 mg tablet (Coreg) 3.125 mg PO BID #180 tab 11/26/20 05/15/21 Rx ezetimibe 10 mg tablet (Zetia) 10 mg PO QAM #90 tab 01/16/21 05/15/21 Rx valsartan 40 mg tablet 20 mg PO QAM #30 tab 01/22/21 05/15/21 Rx clopidogrel 75 mg tablet 75 mg PO QAM #90 tab 02/03/21 05/15/21 Rx allopurinol 100 mg tablet 100 mg PO QAM #30 tab 04/02/21 05/15/21 Rx rivaroxaban 20 mg tablet (Xarelto) 20 mg PO HS 05/15/21 05/15/21 History verapamil 120 mg 24 hr 120 mg PO QAM 05/15/21 05/15/21 History capsule,extended release Past Med/Surg History Medical History Abnormal CT scan, chest Asthma CAD (coronary artery disease) S/p 4 stents in 2015 S/p stent 09/24/19 to D1 Known occluded distal LAD per cardio records Cancer of lung 1999 LOBECTOMY. CHEMO AND RADIATION Cerebral aneurysm Followed by Neuro MRA 07/18/19= "Stable 2 mm aneurysm arising from the lateral margin of the left cavernous carotid. Stable 2 mm aneurysm arising from the ophthalmic portion of the right internal carotid." Per 06/12/20 neuro note- two tiny aneursyms- stable on recent MRI- do not warrant neurosurgeon referral at this time- will continue to monitor Chronic obstructive pulmonary disease CKD (chronic kidney disease) stage 3, GFR 30-59 ml/min COPD (chronic obstructive pulmonary disease) [facility] Dyslipidemia Hemiplegic migraine Followed by Neuro, [place]- stable at 06/12/20 appt (follow up in one year) WAS THOUGHT TO HAVE STROKE BUT HEMIPLEGIC MIGRAINE AND NO PROBLEMS SINCE Hypertension Ischemic cardiomyopathy EF 45-50% CardiologyZANDER Laryngopharyngeal reflux Nasal bleeding plan surgery 01/18 to cauterize Neural hearing loss Pancreatic cyst Paroxysmal atrial tachycardia Asymptomatic per cardio Pulmonary embolism and infarction Pulmonary emphysema Solitary pulmonary nodule STEMI (ST elevation myocardial infarction) 4 STENT 2015 1 STENT 09/24/19 Tinnitus of right ear Surgical History History of arthroplasty of left shoulder History of cardiac catheterization (~2015) 2016 [place] WITH 4 STENTS 2019 with 1 stent to D1- pt dx'ed with STEMI at that time FOLLOWS WITH DR SABILLON History of colonoscopy History of excision of mass neck 2018 Hx of cataract surgery right and left S/P appendectomy S/P excision of lipoma S/P laparoscopic cholecystectomy (01/28/21) Laparoscopy with enterolysis, laparoscopic cholecystectomy and limited laparotomy 01/28/21 Dr. Duvall S/P lobectomy of lung LEFT S/P total knee arthroplasty LEFT Stented coronary artery Family History Brother Cancer Hypertension Sister Cancer Hypertension Diabetes Mother Hypertension Diabetes Unknown Coronary heart disease Father Coronary heart disease Daughter Breast cancer Other Lung cancer Myocardial infarction Denies family history of Ovarian cancer Prostate cancer Hearing loss No family history of adverse response to anesthesia No family history of bleeding disorder Heart disease Allergies Colorectal cancer Stroke Asthma Social History Smoking Status: Former smoker Tobacco Type: Cigarettes Cigarettes Per Day: 10; Second Hand Exposure: No; Hx Alcohol Use: No Hx Substance Use: No Preferred Language: Qatari Communication Ability: Effective Visual Impairment: No Limitations 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: Normal 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 Hand 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: No Beliefs That Will Affect Care: None marital status: Current Living Situation: Spouse current occupational status: retired current occupation: retired Feels Safe at Home: Yes Safety Concerns: Feels Safe At This Time Childhood Exposure to Second-Hand Smoke: Yes caffeine: Yes Dental Care, Regularly: No Physical Activity Frequency: Does not Exercise Seatbelt Use: always Sunscreen Use: Yes Assistive Devices: None Results & Data ([facility]) Vital Signs (Past 12 Hours) Vital Signs Temp Pulse Pulse Resp BP Pulse Ox 05/17/21 12:03 36.0 C L 90 18 185/88 H 97 05/17/21 11:32 36.6 C 81 18 155/86 H 98 05/17/21 08:00 74 05/17/21 07:46 36.5 C 75 17 156/64 H 97 05/17/21 07:17 36.3 C L 81 18 135/88 98 05/17/21 03:53 36.4 C L 80 18 145/77 H 97 05/17/21 00:32 76
--- NOTE | 2021-05-17 12:53 | Communication Note ---
Date of Service: May 17, 2021 Computer is not taking the preop addendum. Pt is NPO. ASA 3. Plan is MAC..
--- NOTE | 2021-05-17 13:02 | GI REPORT ---
Patient Name: Agnieszka Singleton Procedure Date: 05/17/2021 12:32 PM Date of : 1935 Admit Type: Inpatient Age: 85 Gender: Male Attending MD: Cortney Shoemaker DO Procedure: Colonoscopy Providers: Cortney Shoemaker DO Referring MD: Shar Lee Indications: Rectal bleeding Medicines: Propofol per Anesthesia Complications: No immediate complications. Estimated blood loss: None. Estimated Blood Loss: Estimated blood loss: none. Procedure: Pre-Anesthesia Assessment: - Prior to the procedure, a History and Physical was performed, and patient medications, allergies and sensitivities were reviewed. The patient's tolerance of previous anesthesia was reviewed. - The risks and benefits of the procedure and the sedation options and risks were discussed with the patient. All questions were answered and informed consent was obtained. - Patient identification and proposed procedure were verified prior to the procedure by the physician and the nurse. The procedure was verified in the pre-procedure area in the procedure room. - Mental Status Examination: alert and oriented. Airway Examination: normal oropharyngeal airway and neck mobility. Respiratory Examination: clear to auscultation. CV Examination: normal. Abdominal Examination: bowel sounds present, abdomen soft and non-tender, no masses or organomegaly noted. - ASA Grade Assessment: III - A patient with severe systemic disease. After I obtained informed consent, the scope was passed under direct vision. Throughout the procedure, the patient's blood pressure, pulse, and oxygen saturations were monitored continuously. The Colonoscope was introduced through the anus and advanced to the terminal ileum. The colonoscopy was performed without difficulty. The patient tolerated the procedure well. The quality of the bowel preparation was good. Findings: The perianal and digital rectal examinations were normal. Pertinent negatives include normal sphincter tone and no palpable rectal lesions. The terminal ileum appeared normal. A few small-mouthed diverticula were found in the sigmoid colon. Non-bleeding internal hemorrhoids were found during retroflexion. The hemorrhoids were medium-sized and Grade I (internal hemorrhoids that do not prolapse). Impression: - No fresh or altered blood. - The examined portion of the ileum was normal. - Diverticulosis in the sigmoid colon. - Non-bleeding internal hemorrhoids. - No specimens collected. Recommendation: - Return patient to hospital [facility]. - Resume regular diet. Cortney Shoemaker D.O. Cortney Shoemaker, 05/17/2021 1:02:31 PM This report has been signed electronically. Note Initiated On: 05/17/2021 12:32 PM Number of Addenda: 0 I attest to the content of the Intraoperative Record and orders documented therein, exceptions below {[id number]}
--- NOTE | 2021-05-17 13:58 | Anesthesiology Progress Note ---
Date of Service May 17, 2021 Anesthesia Post Procedure Vital Signs Vital Signs: Temp Pulse Pulse Resp BP Pulse Ox 05/17/21 13:33 79 16 128/74 96 05/17/21 13:18 80 16 127/70 97 05/17/21 13:03 82 14 107/57 L 97 05/17/21 12:03 36.0 C L 90 18 185/88 H 97 05/17/21 11:32 36.6 C 81 18 155/86 H 98 05/17/21 08:00 74 05/17/21 07:46 36.5 C 75 17 156/64 H 97 05/17/21 07:17 36.3 C L 81 18 135/88 98 05/17/21 03:53 36.4 C L 80 18 145/77 H 97 05/17/21 00:32 76 05/16/21 23:00 36.5 C 77 18 135/73 96 05/16/21 19:00 36.3 C L 80 18 149/76 H 97 05/16/21 16:00 80 05/16/21 14:49 36.7 C 76 18 145/81 H 97 Transfer of Care Handoff Completed per policy Notes Mental Status: alert / awake / arousable and participated in evaluation Patient Amnestic to Procedure: Yes Nausea / Vomiting: adequately controlled Pain: adequately controlled Airway Patency, RR, SpO2: stable & adequate BP & HR: stable & adequate Hydration State: stable & adequate Anesthetic Complications: no major complications apparent and Pt Satisfied with anesthetic care
--- NOTE | 2021-05-17 17:31 | Electrocardiogram Report ---
Test Reason : Blood Pressure : / mmHG Vent. Rate : 069 BPM Atrial Rate : 069 BPM P-R Int : 208 ms QRS Dur : 148 ms QT Int : 444 ms P-R-T Axes : 060 -76 064 degrees QTc Int : 475 ms Normal sinus rhythm Right bundle branch block Left anterior fascicular block Bifascicular block Septal infarct , age undetermined Abnormal ECG When compared with ECG of 02-FEB-2021 13:06, Right bundle branch block is now Present Confirmed by Josh Gillis ([id number]) on 05/17/2021 5:31:12 PM Referred By: REFERRED SELF Confirmed By:Josh Gillis
--- NOTE | 2021-05-17 18:38 | Billing Data ---
Date of Service May 17, 2021 Coding Level of Care Code 98390 OBS Care - Discharge
== END 2021-05-17 16:00 | disposition home or self-care (01) ==
LOC: 2N 15:18 → ED 15:18 → SUATTDRO 22:33 → 2N 23:35

== ENCOUNTER 2022-02-25 10:31 | Inpatient (IN) ==
--- NOTE | 2022-01-30 09:20 | PAT Medication Instructions ---
Medication Instructions Date of Service January 30, 2022 Home Medications Medication Instructions Recorded ezetimibe 10 mg tablet (Zetia) 10 mg PO QAM #90 tab 01/16/21 valsartan 40 mg tablet 20 mg PO QAM #30 tab 01/22/21 verapamil 120 mg 24 hr 120 mg PO QAM 90 Days #90 cap 08/12/21 capsule,extended release carvedilol 3.125 mg tablet (Coreg) 3.125 mg PO BID #180 tab 12/16/21 nitroglycerin 0.4 mg sublingual 0.4 mg SUBLINGUAL Q5M PRN #30 tab 12/23/21 tablet allopurinol 100 mg tablet 100 mg PO QAM #30 tab 01/16/22 cholecalciferol (vitamin D3) 25 mcg (1,000 unit) capsule (Vitamin D3) 2,000 unit PO HS zinc acetate 50 mg (zinc) capsule (Galzin) 50 mg PO QAM albuterol sulfate 90 mcg/actuation aerosol inhaler 2 puffs INH QID PRN ezetimibe 10 mg tablet (Zetia) 10 mg PO QAM valsartan 40 mg tablet 20 mg PO QAM verapamil 120 mg 24 hr capsule,extended release 120 mg PO QAM tiotropium bromide 2.5 mcg/actuation mist for inhalation (Spiriva Respimat) 2 inh INHALATION QAM PRN carvedilol 3.125 mg tablet (Coreg) 3.125 mg PO BID nitroglycerin 0.4 mg sublingual tablet 0.4 mg SUBLINGUAL Q5M PRN allopurinol 100 mg tablet 100 mg PO QAM aspirin 81 mg tablet,delayed release (Adult Aspirin Regimen) 81 mg PO QAM famotidine 40 mg tablet 40 mg PO QAM pantoprazole 40 mg tablet,delayed release 40 mg PO HS ticagrelor 90 mg tablet (Brilinta) 90 mg PO BID Continue as directed nitroglycerin 0.4 mg sublingual tablet 0.4 mg SUBLINGUAL Q5M PRN (if needed) ASK your prescriber and surgeon ticagrelor 90 mg tablet (Brilinta) 90 mg PO BID (will need to be on hold at least 5-7 days in order to get spinal anesthesia) DO NOT take the morning of surgery zinc acetate 50 mg (zinc) capsule (Galzin) 50 mg PO QAM valsartan 40 mg tablet 20 mg PO QAM Take morning of surgery With a small sip of water, OTHERWISE NOTHING TO EAT OR DRINK AFTER MIDNIGHT: albuterol sulfate 90 mcg/actuation aerosol inhaler 2 puffs INH QID PRN (use if needed; please bring with you to hospital day of surgery if possible) ezetimibe 10 mg tablet (Zetia) 10 mg PO QAM verapamil 120 mg 24 hr capsule,extended release 120 mg PO QAM tiotropium bromide 2.5 mcg/actuation mist for inhalation (Spiriva Respimat) 2 inh INHALATION QAM PRN (if needed) carvedilol 3.125 mg tablet (Coreg) 3.125 mg PO BID allopurinol 100 mg tablet 100 mg PO QAM aspirin 81 mg tablet,delayed release (Adult Aspirin Regimen) 81 mg PO QAM (unless surgeon directed otherwise) famotidine 40 mg tablet 40 mg PO QAM Take evening before surgery cholecalciferol (vitamin D3) 25 mcg (1,000 unit) capsule (Vitamin D3) 2,000 unit PO HS albuterol sulfate 90 mcg/actuation aerosol inhaler 2 puffs INH QID PRN (if needed) carvedilol 3.125 mg tablet (Coreg) 3.125 mg PO BID pantoprazole 40 mg tablet,delayed release 40 mg PO HS Other Notes If you have any questions please call us at [phone] or [phone] or [phone] or [phone]
--- NOTE | 2022-01-30 11:10 | Anesthesiology Consultation ---
Date of Service January 30, 2022 Assessment & Plan (1) Encounter for pre-operative examination: Chart Review Chart Review: Acceptable Risk for Surgery (pending surgeon ordered cardio clearance and possible repeat ECHO (02/04/22) and preop Covid testing results ) and Patient seen in Pre Admission Testing - Awaiting cardio clearance and possible ECHO scheduled 02/04/22 Per PAT appt on 01/30/22, patient denies any recent travel or large group activities. No known Covid positive exposures or Covid related symptoms. No known Covid infection in the past 90 days. Pt is vaccinated for Covid. Preop Covid testing scheduled 02/21/22= will await results. Educated on importance of self quarantining, social distancing and wearing mask in public for the patient one week prior to surgery and after Covid testing done Last seen by neuro 09/17/21= history of severe hemiplegic migraines in the pastno recent headaches- on Verapamil and Topamax. Has rare, mild to moderate headaches current responsive to Tylenol. History of 2 cerebral artery aneurysm/checked in the fall 2018. Discontinue Topamax. Continue verapamil. MRA of [id number] to evaluate aneurysms ordered. Otherwise return in 1 year. Teaching & Discussion Pre-Anesthesia Teaching/Discussion Notes: Instructed NPO after midnight before surgery,except medications with 15 cc of water. Medication instructions provided according to the PAT guidelines. History Surgery Operation Date: 02/25/22 14:35 Proposed Procedures p Left Knee Polyexchange Tibial Component with Gerardo and Nephew, Possible Total Knee Revision - Ming Mcdowell, Height/Weight Height: 6 ft Weight: 82.4 kg Allergies Allergy/AdvReac Type Severity Reaction Status Date / Time Cephalosporins Allergy Intermediate Rash Verified 01/29/22 14:20 fluticasone Allergy Intermediate Rash Verified 01/29/22 14:20 Iodinated Contrast Media Allergy Intermediate Hives Verified 01/29/22 14:20 Penicillins Allergy Intermediate Rash Verified 01/29/22 14:20 salmeterol Allergy Mild Rash Verified 01/29/22 14:20 cephalexin [From Keflex] Allergy Unknown Hives Verified 01/29/22 14:20 pravastatin Allergy Unknown myalgias Verified 01/29/22 14:20 atorvastatin AdvReac Mild MUSCLE Verified 01/29/22 14:20 ACHES fluvastatin AdvReac Mild MUSCLE Verified 01/29/22 14:20 ACHES lisinopril AdvReac Mild Cough Verified 01/29/22 14:20 rosuvastatin AdvReac Mild MUSCLE Verified 01/29/22 14:20 ACHES Medications Home Medications Medication Instructions Recorded Confirmed Last Taken cholecalciferol (vitamin D3) 25 2,000 unit PO HS 06/25/18 01/29/22 05/14/21 mcg (1,000 unit) capsule (Vitamin D3) zinc acetate 50 mg (zinc) capsule 50 mg PO QAM 03/23/20 01/29/22 01/30/21 (Galzin) albuterol sulfate 90 mcg/actuation 2 puffs INH QID PRN g 06/12/20 01/29/22 01/27/21 08:00 aerosol inhaler ezetimibe 10 mg tablet (Zetia) 10 mg PO QAM #90 tab 01/16/21 01/29/22 05/15/21 valsartan 40 mg tablet 20 mg PO QAM #30 tab 01/22/21 01/29/22 05/15/21 verapamil 120 mg 24 hr 120 mg PO QAM 90 Days #90 cap 08/12/21 01/29/22 Unknown capsule,extended release tiotropium bromide 2.5 2 inh INHALATION QAM PRN g 12/05/21 01/29/22 Unknown mcg/actuation mist for inhalation (Spiriva Respimat) carvedilol 3.125 mg tablet (Coreg) 3.125 mg PO BID #180 tab 12/16/21 01/29/22 Unknown nitroglycerin 0.4 mg sublingual 0.4 mg SUBLINGUAL Q5M PRN #30 tab 12/23/21 01/29/22 Unknown tablet allopurinol 100 mg tablet 100 mg PO QAM #30 tab 01/16/22 01/29/22 Unknown aspirin 81 mg tablet,delayed 81 mg PO QAM 01/29/22 01/29/22 Unknown release (Adult Aspirin Regimen) famotidine 40 mg tablet 40 mg PO QAM 01/29/22 01/29/22 Unknown pantoprazole 40 mg tablet,delayed 40 mg PO HS 01/29/22 01/29/22 Unknown release ticagrelor 90 mg tablet (Brilinta) 90 mg PO BID 01/29/22 01/29/22 Unknown Past Medical History Medical History (Updated 01/30/22 @ 16:31 by Bianca Vaz PA-C) Asthma Breathing stable CAD (coronary artery disease) S/p stents x4 (2015) to LAD S/p stent (2019) to D1 Known occluded distal LAD per cardio records On Brillinta Cancer of lung 1998 s/p lobectomy/chemo/xrt Cerebral aneurysm Followed by Neuro Head MRA 09/26/21= "Unchanged appearance of 2 small carotid artery aneurysms as detailed above. 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 No recent issues Hx pulmonary embolism Post-op (provoked in the setting of GI surgery) (01/2021) treated with Xarelto (Xarelto later discontinued after GI bleed) (no current problems) Hypertension Ischemic cardiomyopathy EF 35-40% per 12/2021 ECHO Follows with [facility] cardiology Laryngopharyngeal reflux Well controlled and stable Neural hearing loss Pancreatic cyst Stable per 01/31/21 Abdomen/Pelvis CT scan Paroxysmal atrial tachycardia Sensorineural hearing loss of both ears Solitary pulmonary nodule 12/23/21 CT findings "stable" per pulmonary workload note 12/26/21 STEMI (ST elevation myocardial infarction) 2015, 2018 Tinnitus of right ear Exercise / Class Metabolic Activity III < 4 Walking/Shop/Light housework (one flight of stairs - no chest pain, mild SOB ) Past Family History Family History Brother Cancer Hypertension Sister Cancer Hypertension Diabetes Mother Hypertension Diabetes Unknown Coronary heart disease Father Coronary heart disease Daughter Breast cancer Other Lung cancer Myocardial infarction Denies family history of Ovarian cancer Prostate cancer Hearing loss No family history of adverse response to anesthesia No family history of bleeding disorder Heart disease Allergies Colorectal cancer Stroke Asthma Past Surgical History Surgical History History of arthroplasty of left shoulder History of cardiac catheterization S/p stents x4 (2015) S/p stent (2019) to D1 Known occluded distal LAD per cardio records History of colonoscopy History of excision of mass Neck (2017) Hx of cataract surgery R/L S/P appendectomy S/P excision of lipoma S/P laparoscopic cholecystectomy Lap samy (01/28/21): Grade view 1, MAC#4, ETT 7.5 at [facility] S/P lobectomy of lung Left S/P total knee arthroplasty Left Stented coronary artery Past Anesthesia History No Hx of Anesthesia Complications and No Family Hx of Anesthesia Complications History of PONV No Hx of Motion Sickness and History of PONV (only with previous anesthesia- no issues recently ) Social History Smoking Status: Former smoker tobacco type: cigarettes Do You Dip or Chew Tobacco: No Smoking End Date: 1996 Hx Alcohol Use: Yes (quit 1990) Hx Substance Use: No substance use type: does not use Review of Systems -Chronic wheezing - secondary to COPD -Occ snoring- no witnessed apnea- no hx of sleep study Patient denies chest pain, shortness of breath at rest, cough, wheezing, palpitations. No hx of seizures, stroke. No hx of blood transfusions Physical Exam Vital Signs VITALS BP 136/76 P 76 TEMP 97.5 SP02 97% RESP 16 Constitutional no acute distress ENMT Mouth: + small oral opening; no TMJ clicking Thyromental Distance: > or= 3.5 Finger Breadths (3.5) Mallampati Class: I Full dentures on top and bottom Neck + limited neck extension Respiratory normal respiratory effort; no respiratory distress Auscultation: lungs clear to auscultation bilaterally; no wheezes Cardiovascular Rate/Rhythm: regular rate and regular rhythm Heart Sounds: no murmur Vessels: no carotid bruit Musculoskeletal Spine: no pain with cervical ROM Extremities: extremities normal to inspection Psychiatric Orientation: alert Lab Results Anesthesia Preop Results Results Anesthesia Widget: WBC 6.37 K/uL (4.8-10.8) 01/30/22 Hgb 13.7 g/dL (14.0-18.0) L 01/30/22 Hct 41.8 % (42-52) L 01/30/22 Plt 238 K/uL (130-400) 01/30/22 Na 141 mmol/L (136-145) 01/30/22 K 4.0 mmol/L (3.5-5.1) 01/30/22 Cl 106 mmol/L (98-107) 01/30/22 CO2 29 mmol/L (21-32) 01/30/22 BUN 19 mg/dl (6-23) 01/30/22 Creat 1.35 mg/dl (0.6-1.4) 01/30/22 Glucose Level 96 mg/dl (70-99(Fasting)) 01/30/22 PT 11.3 Seconds (9.0-12.0) 01/30/22 PTT 30.1 Seconds (21.0-31.0) 01/30/22 INR 1.1 (0.9-1.1) 01/30/22 Urine Color Yellow 01/30/22 Urine Appearance Clear (Clear) 01/30/22 Urine pH 5.0 (4.5-7.5) 01/30/22 Urine Specific [place] 1.009 (1.000-1.030) 01/30/22 Urine Protein Negative (Negative) 01/30/22 Urine Glucose (UA) Negative (Negative) 01/30/22 Urine Ketones Negative (Negative) 01/30/22 Urine Blood Negative (Negative) 01/30/22 Urine Nitrite Negative (Negative) 01/30/22 Urine Bilirubin Negative (Negative) 01/30/22 Urine Urobilinogen Negative (Negative) 01/30/22 Urine Leukocyte Esterase Trace (Negative) H 01/30/22 Urine WBC (Auto) 1-5 /hpf (0-5) 01/30/22 Urine RBC (Auto) 0-4 /hpf (0-4) 01/30/22 Urine Hyaline Casts (Auto) 0 /lpf (0-5) 01/30/22 Urine Epithelial Cells (Auto) 0-5 /lpf (0-5) 01/30/22 Urine Bacteria (Auto) Negative (Negative) 01/30/22 Blood Type O Positive 01/30/22 Antibody Screen NEGATIVE 01/30/22 Testing Electrocardiogram Date: 01/30/22 Findings: + NSR @ (80bpm ) RBBB. LAFB Bifascicular block (Bifascicular block noted on 05/15/21 EKG- had subsequent ECHO in 12/2021 and will be seeing [facility] cardio 02/04/22 for preop clearance) Other Testing Chest CT 12/23/21= Advanced emphysema with chronic/postoperative findings. This is similar to prior studies. There is no airspace consolidation typical for pneumonia or pleural effusion. Subcentimeter groundglass foci at the left lung base and tiny solid nodules in the right middle lobe are similar to previous. Continued attention at follow-up is recommended. Head MRA 09/26/21= The intracranial vessels are patent. Unchanged appearance of 2 small carotid artery aneurysms as detailed above. These measure up to 2.5 mm.
--- NOTE | 2022-02-06 09:07 | History & Physical Report ---
Date of Service February 06, 2022 date of surgery: 02/25/22 Procedure: Left Knee Poly exchange, Possible Total Knee Revision Surgeon: Ming Mcdowell Assessment & Plan (1) Painful total knee replacement, left: Plan: Mr Singleton would like to proceed with left knee poly exchange, poss total knee revision. he underwent left TKA 15-20 years ago, has developed laxity to his knee, bone scan did not show any obvious loosening, his ESR and CRP were within normal limits, Dr Mcdowell did attempt aspiration but was unable to get enough fluid for analysis. will proceed with surgery as discussed, plan on HHPT x 2 weeks, ASA 81mg po bid x 1 month for dvt proph. The risks and benefits have been discussed including, but not limited to, risk of infection, nerve injury, stiffness, loss of motion, failure to improve, etc. Reasonable outcomes and options of treatment were discussed. An explanation of appropriate alternatives to the procedure that may be advantageous were discussed and their risks and benefits, as well as the risks and benefits of not proceeding with treatment. I offered to answer any additional inquiries concerning the treatment involved. All the patient's questions were answered. The patient is agreeable, understanding of the treatment plan and alternatives, and wishes to proceed with the treatment plan. History of Present Illness Chief Complaint: Left knee pain Primary Care Provider: Shan Torres DO Mr Singleton is a 86 year old male who presents with left knee pain, scheduled for left knee poly exchange with poss total knee revision. He has history of left TKA by Dr Mcdowell in approximately 2005 and did well until recently. Recently he has developed some laxity to his knee and feels that it "slips out of place". On exam has laxity with valgus/varus stress. He has undergone bone scan which did not show any obvious loosening to the prosthesis, underwent ESR and CRP, Dr Mcdowell had attempted aspiration but no fluid was able to be obtained. Allergies Allergy/AdvReac Type Severity Reaction Status Date / Time Cephalosporins Allergy Intermediate Rash Verified 02/04/22 14:00 fluticasone Allergy Intermediate Rash Verified 02/04/22 14:00 Iodinated Contrast Media Allergy Intermediate Hives Verified 02/04/22 14:00 Penicillins Allergy Intermediate Rash Verified 02/04/22 14:00 salmeterol Allergy Mild Rash Verified 02/04/22 14:00 cephalexin [From Keflex] Allergy Unknown Hives Verified 02/04/22 14:00 pravastatin Allergy Unknown myalgias Verified 02/04/22 14:00 atorvastatin AdvReac Mild MUSCLE Verified 02/04/22 14:00 ACHES fluvastatin AdvReac Mild MUSCLE Verified 02/04/22 14:00 ACHES lisinopril AdvReac Mild Cough Verified 02/04/22 14:00 rosuvastatin AdvReac Mild MUSCLE Verified 02/04/22 14:00 ACHES Home Medications Medication Instructions Recorded Confirmed Type cholecalciferol (vitamin D3) 25 2,000 unit PO HS 06/25/18 02/04/22 History mcg (1,000 unit) capsule (Vitamin D3) zinc acetate 50 mg (zinc) capsule 50 mg PO QAM 03/23/20 02/04/22 History (Galzin) albuterol sulfate 90 mcg/actuation 2 puffs INH QID PRN g 06/12/20 02/04/22 History aerosol inhaler ezetimibe 10 mg tablet (Zetia) 10 mg PO QAM #90 tab 01/16/21 02/04/22 Rx valsartan 40 mg tablet 20 mg PO QAM #30 tab 01/22/21 02/04/22 Rx tiotropium bromide 2.5 2 inh INHALATION QAM PRN g 12/05/21 02/04/22 History mcg/actuation mist for inhalation (Spiriva Respimat) carvedilol 3.125 mg tablet (Coreg) 3.125 mg PO BID #180 tab 12/16/21 02/04/22 Rx nitroglycerin 0.4 mg sublingual 0.4 mg SUBLINGUAL Q5M PRN #30 tab 12/23/21 02/04/22 Rx tablet allopurinol 100 mg tablet 100 mg PO QAM #30 tab 01/16/22 02/04/22 Rx aspirin 81 mg tablet,delayed 81 mg PO QAM 01/29/22 02/04/22 History release (Adult Aspirin Regimen) famotidine 40 mg tablet 40 mg PO QAM 01/29/22 02/04/22 History pantoprazole 40 mg tablet,delayed 40 mg PO HS 01/29/22 02/04/22 History release ticagrelor 90 mg tablet (Brilinta) 90 mg PO BID 01/29/22 02/04/22 History verapamil 120 mg 24 hr 120 mg PO QAM 90 Days #90 cap 02/04/22 02/04/22 Rx capsule,extended release Past Med/Surg History Medical History Asthma Breathing stable CAD (coronary artery disease) S/p stents x4 (2015) to LAD S/p stent (2018) to D1 Known occluded distal LAD per cardio records On Brillinta Cancer of lung 1998 s/p lobectomy/chemo/xrt Cerebral aneurysm Followed by Neuro Head MRA 09/26/21= "Unchanged appearance of 2 small carotid artery aneurysms as detailed above. 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 No recent issues Hx pulmonary embolism Post-op (provoked in the setting of GI surgery) (01/2021) treated with Xarelto (Xarelto later discontinued after GI bleed) (no current problems) Hypertension Ischemic cardiomyopathy EF 35-40% per 12/2021 ECHO Follows with [facility] cardiology Laryngopharyngeal reflux Well controlled and stable Neural hearing loss Pancreatic cyst Stable per 01/31/21 Abdomen/Pelvis CT scan Paroxysmal atrial tachycardia Sensorineural hearing loss of both ears Solitary pulmonary nodule 12/23/21 CT findings "stable" per pulmonary workload note 12/26/21 STEMI (ST elevation myocardial infarction) 2015, 2018 Tinnitus of right ear Surgical History History of arthroplasty of left shoulder History of cardiac catheterization S/p stents x4 (2015) S/p stent (2019) to D1 Known occluded distal LAD per cardio records History of colonoscopy History of excision of mass Neck (2017) Hx of cataract surgery R/L S/P appendectomy S/P excision of lipoma S/P laparoscopic cholecystectomy Lap samy (01/28/21): Grade view 1, MAC#4, ETT 7.5 at [facility] S/P lobectomy of lung Left S/P total knee arthroplasty Left Stented coronary artery Family History Brother Cancer Hypertension Sister Cancer Hypertension Diabetes Mother Hypertension Diabetes Unknown Coronary heart disease Father Coronary heart disease Daughter Breast cancer Other Lung cancer Myocardial infarction Denies family history of Ovarian cancer Prostate cancer Hearing loss No family history of adverse response to anesthesia No family history of bleeding disorder Heart disease Allergies Colorectal cancer Stroke Asthma Social History Smoking Status: Former smoker Tobacco Type: Cigarettes Age Started Using Tobacco: 23; Age Quit Using Tobacco: 51; packs per day: 0.5; Second Hand Exposure: No; Hx Alcohol Use: Yes (quit 1990) Hx Substance Use: No Preferred Language: Danish Communication Ability: Effective Visual Impairment: No Limitations 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: Use of Hearing Aid Technical Asst Required: No Beliefs That Will Affect Care: None marital status: Current Living Situation: Spouse current occupational status: retired current occupation: retired Feels Safe at Home: Yes Childhood Exposure to Second-Hand Smoke: Yes caffeine: Yes Dental Care, Regularly: No Physical Activity Frequency: Does not Exercise Seatbelt Use: always Sunscreen Use: Yes Do you think of yourself as: straight/heterosexual Assistive Devices: Denture - Upper and Denture - Lower Review of Systems Review of Systems: All systems reviewed & are unremarkable except as noted in HPI & below Constitutional: no fever, no chills and no sweats Respiratory: no cough and no dyspnea Cardiovascular: no chest pain, no dyspnea and no orthopnea Gastrointestinal: no abdominal pain, no nausea and no vomiting Musculoskeletal: as per Subjective / HPI Physical Exam Physical Exam: HT: 6ft WT: 82.4kg BP: 138/80 Constitutional: WD/WN, vitals as above no acute distress Respiratory: normal respiratory effort, lungs clear to auscultation no respiratory distress, no labored breathing and does not use accessory muscles Cardiovascular: RRR, no murmur, no edema Gastrointestinal (Abdomen): normal bowel sounds, soft, nontender, no hepatosplenomegaly Musculoskeletal: Left Knee Exam Ambulates with a limp, overall neutral alignment, there is no atrophy warmth or ecchymosis noted, mild effusion, maximum tenderness medial retinaculum. positive patellar Apprehension , no crepitation with motion, valgus stress Neg ative, Varus stress Negative, no Extensor lag, Pain with Active range of motion, also passive painful ROM, Range of motion 0/3/115. No pain with active/passive ROM of ankle. Lower Extremity Strength normal. Lower Extremity Neuro-vascular is normal Results & Data Results & Data ([facility]) Laboratory Results ESR and CRP from 01/02/22 ESR- 14 CRP- 0.8 Diagnostic Findings LEFT KNEE 3 views: FINDINGS: The patient is status post a left total knee arthroplasty. The hardware is intact. No fracture or dislocation. IMPRESSION: Left total knee arthroplasty. No evidence for hardware complication. BONE SCAN FROM 01/02 showing no obvious signs loosening or acute bony findings.
[~2022-02-25 10:31] MED LIST changes: +ACETAMINOPHEN 500 MG TAB PO SCH; -ALBINS/ NEB; -ASPI81TA28 PO; +BUPIVACAINE 0.25% 30 ML VIAL ONE; +BUPIVACAINE 0.5 % 5 MG/1 ML PF 10ML VIAL ONE; -CLOP1TAB15 PO; -COEN100C11 PO; -CRG3125 PO; -CZR25 PO; +CeleBREX 200 MG CAP PO SCH; +DEXAMETHASONE SOD INJ 4 MG/ML VIAL ONE; +EPINEPHrine INJ 1 MG/ML AMP ONE; +FAMOTIDINE 20 MG TAB PO SCH; +GABAPENTIN 300 MG CAP PO SCH; +LR 500ML BOLUS, THEN 15ML/HR IV SCH; +METOCLOPRAMIDE HCL 10 MG TABLET PO SCH; -NTRGSL/4 UT; -PRVC/10 PO; +ROPIVACAINE 0.5% HCL/PF 150 MG, BUPIVACAINE 0.75% MPF 20 ML, EPINEPHrine 30MG/30ML (OR ... INSTIL SCH; -SALI0.6510; -TIOT1AER2 INH; +VANCOMYCIN HCL 1,250 MG in SODIUM CHLORIDE 0.9% 250 ML IV SCH; -VRPSR180 PO; +dexAMETHasone 4 MG TAB PO SCH
[2022-02-25] MEDS ORDERED: fentaNYL citrate 100 MCG/2 ML VIAL ONE (11:11)
[2022-02-25] MEDS ORDERED: PROPOFOL IV EMULSION 10 MG/ML 20 ML VIAL IV ONE ×3 (11:11→13:11)
[2022-02-25] MEDS ORDERED: MIDAZOLAM HCL 1 MG/ML 2ML VIAL ONE (11:11)
[2022-02-25] MEDS ORDERED: LIDOCAINE 2% 2 ML VIAL/AMP(20MG/ML) INFIL ONE (11:11)
--- NOTE | 2022-02-25 11:22 | History & Physical Bridge Note ---
Date of Service February 25, 2022 History & Physical Bridge Note I have examined the patient, reviewed the History & Physical and in the interval since the performance of the History & Physical I have noted the following changes of clinical significance: no changes noted
--- NOTE | 2022-02-25 11:33 | Anesthesiology Progress Note ---
Date of Service February 25, 2022 Anesthesia Post Procedure Vital Signs Vital Signs: Temp Pulse Resp BP Pulse Ox 02/25/22 11:07 36.6 C 82 20 156/85 H 96 Pain Intensity Left Knee: Pain Intensity: 5 Transfer of Care Handoff Completed per policy Notes Mental Status: alert / awake / arousable Patient Amnestic to Procedure: Yes Nausea / Vomiting: adequately controlled Pain: adequately controlled Airway Patency, RR, SpO2: stable & adequate BP & HR: stable & adequate Hydration State: stable & adequate Anesthetic Complications: no major complications apparent
[2022-02-25] MEDS ORDERED: ORTHO JOINT ANESTHETIC ONE (11:59)
[2022-02-25] MEDS ORDERED: ONDANSETRON INJ 2 MG/ML 2 ML VIAL ONE (12:59)
[2022-02-25] MEDS ORDERED: fentaNYL citrate 100 MCG/2 ML VIAL IV PRN (13:04)
[2022-02-25] MEDS ORDERED: ePHEDrine sulfate 50 MG/ML AMP IV PRN (13:04)
[2022-02-25] MEDS ORDERED: ONDANSETRON INJ 2 MG/ML 2 ML VIAL IV PRN ×2 (13:04→16:26)
[2022-02-25] MEDS ORDERED: ATROPINE SULFATE 0.1 MG/ML 10ML SYR IV PRN (13:04)
--- NOTE | 2022-02-25 13:52 | Operative Report ---
Post Operative Report Pre & Post Diagnosis Operation Date: 02/25/22 11:55 Pre-Op Diagnosis: Right Knee worn poly with preoperative laxity Post-Op Diagnosis: Right Knee worn poly with preoperative laxity I identified the patient and participated in the time-out.: Yes Procedure Operation Date: 02/25/22 11:55 Actual Procedures p Left Knee Polyexchange to size 13 x 5 [place] triathlon polyethylene constrained Ming Mcdowell DO Surgeon Ming Mcdowell DO Payroll Officer MORGAN Johnson Estimated Blood Loss 5 Findings Consistent with Post-Op Diagnosis Patient presents with preoperative laxity in extension mid flexion and flexion with polywear 16-year previous total knee arthroplasty and had recent onset of increased instability after having had a twisting injury to his knee Specimens Polyethylene spacer Drains Medium bore Hemovac Anesthesia Type MAC Spinal Regional Complications none Disposition Accompanied Patient To Recovery: No Disposition: Recovery Room Indications Patient presents with pain instability after having developed increased laxity with polywear and a twisting injury with now laxity of his total knee arthroplas ty that is been no response to conservative management including bracing MCL hinged braces physical therapy and rehabilitation as well as several months of time Description of Procedure Initiation of spinal with regional anesthesia the left lower extremity socially prepped draped in sterile fashion surgeon's type incision made in the region of the previous incision dissection carried down through subtenons tissue to the extensor mechanism medial parapatellar incision was made meticulous hemostasis was obtained and maintained at all times was noted to be evidence of laxity in both flexion extension and primarily in mid flexion subsequently the polywas evaluated the distal femoral component was well cemented well fixed no loosening was noted the proximal tibia was well cemented well fixed no loosening was noted the patella was well fixed no loosening was noted the polyethylene that had wear to the polywas removed socially trials up to a size 13 x 5 replaced with a constrained post the this gave excellent stability throughout all ranges of motion flexion mid flexion extension no further instability was noted subsequently final component was brought on the field and placed the wound was irrigated cups muscle sterile saline solution the deep wound was closed #1 Vicryl subcu was closed with 2-0 Vicryl skin was closed with 2-0 Vicryl and a running V lock with skin glue the patient had a sterile compressive dressing placed was taken recovery in stable condition please note Abraham Johnson to the complex nature of the procedure, the entire surgery was performed with the operational assistance of MORGAN Johnson. The care management assistant, under direct supervision, was involved in the actual performance of all aspects of the surgical procedure including hemostasis, tissue retraction and incision, instrument management, patient positioning, and wound closure. I attest to the content of the Intraoperative Record and any orders documented therein. Any exceptions are noted below.
--- NOTE | 2022-02-25 14:41 | XRay Report ---
XR knee LT 1 or 2V routine HISTORY: 86 years-old Male Surgical Post Op left knee total joint arthroplasty COMPARISON: None TECHNIQUE: 2 views of the left knee FINDINGS: Left knee total joint arthroplasty with patellar resurfacing. Anterior midline skin margaret are noted along with expected postoperative soft tissue swelling with deep tissue air. No acute fracture or un expected opaque foreign body. IMPRESSION: Left knee total joint arthroplasty with expected postoperative changes. ACT 112: Negative or not required by law. The above report was generated using voice recognition software. It may contain grammatical, syntax o r spelling errors. Electronically signed by: Dakota Miller M.D. 02/25/2022 2:40 PM
--- NOTE | 2022-02-25 15:27 | Anesthesiology Progress Note ---
Date of Service February 25, 2022 Anesthesia Post Procedure Vital Signs Vital Signs: Temp Pulse Pulse Resp BP BP Pulse Ox 02/25/22 15:20 73 18 127/74 95 02/25/22 15:10 69 18 119/69 95 02/25/22 15:00 73 20 109/85 96 02/25/22 14:50 71 17 132/71 98 02/25/22 14:40 72 18 119/59 L 96 02/25/22 14:30 71 17 128/69 98 02/25/22 14:20 74 18 120/65 99 02/25/22 14:13 36.3 C L 80 23 120/67 96 02/25/22 11:07 36.6 C 82 20 156/85 H 96 Pain Intensity Left Knee: Pain Intensity: 5 Transfer of Care Handoff Completed per policy Notes Mental Status: alert / awake / arousable Patient Amnestic to Procedure: Yes Nausea / Vomiting: adequately controlled Pain: adequately controlled Airway Patency, RR, SpO2: stable & adequate BP & HR: stable & adequate Hydration State: stable & adequate Neuraxial Anesthesia: was administered and sensory block is resolving Anesthetic Complications: no major complications apparent
[2022-02-25] MEDS ORDERED: NALOXONE HCL 0.4 MG/1 ML VIAL/CARP IV PRN (16:26)
[2022-02-25] MEDS ORDERED: MAGNESIUM HYDROXIDE SUSP 30 ML UDC PO PRN (16:26)
[2022-02-25] MEDS ORDERED: NITROGLYCERIN SL 0.4 MG/TAB TAB SL PRN (16:26)
[2022-02-25] MEDS ORDERED: bisacodyL 10 MG SUPP PR PRN (16:26)
[2022-02-25] MEDS ORDERED: HYDROmorphone INJ 1 MG/ML SYRINGE IV PRN (16:26)
[2022-02-25] MEDS ORDERED: oxyCODONE HCL IR 5 MG TAB (IMMEDIATE RELEASE) PO PRN (16:26)
[2022-02-25] MEDS ORDERED: ALBUTEROL HFA 8 GM INHALER INH PRN (16:26)
[2022-02-25] MEDS ORDERED: METOCLOPRAMIDE HCL INJ 5 MG/ML 2 ML VIAL IV PRN (16:26)
[2022-02-25] MEDS ORDERED: diphenhydrAMINE Capsule 25 MG CAP PO PRN (16:26)
[2022-02-25] MEDS ORDERED: UMECLIDINIUM BROMIDE 62.5MCG/BLISTER 7 PUFFS/INHALER INH PRN (16:33)
[2022-02-25] MEDS: SODIUM CHLORIDE 0.9% 1000ML 1,000 ML IV SCH (17:08)
[2022-02-25] MEDS: CLINDAMYCIN 600 MG in DEXTROSE 5% 50 ML IV SCH (19:49)
[2022-02-25] MEDS: DOCUSATE SODIUM 100 MG CAP PO SCH (19:50)
[2022-02-25] MEDS: TICAGRELOR 90 MG TAB PO SCH (19:50)
[2022-02-25] MEDS: carvediloL 3.125 MG TAB PO SCH (19:50)
[2022-02-25] MEDS: ACETAMINOPHEN 500 MG TAB PO SCH (20:56)
[2022-02-25] MEDS ORDERED: CHOLECALCIFEROL 1,000 UNITS 25 MCG TAB PO SCH (21:00)
[2022-02-25] MEDS ORDERED: SENNA 8.6 MG TAB PO SCH (21:00)
[2022-02-26] MEDS: SODIUM CHLORIDE 0.9% 1000ML 1,000 ML IV SCH (03:17)
[2022-02-26] MEDS: CLINDAMYCIN 600 MG in DEXTROSE 5% 50 ML IV SCH (04:08)
[2022-02-26] MEDS: ACETAMINOPHEN 500 MG TAB PO SCH ×3 (05:34→13:14)
--- NOTE | 2022-02-26 06:50 | Orthopedic Progress Note ---
Date of Service February 26, 2022 Assessment & Plan (1) Painful total knee replacement, left: Plan: POD #1 s/p left TKA poly exchange pt/ot dvt proph with ALAYNA/SCD/resume Brilinta and ASA plan for d/c home with home health PT Admission and Anticipated Discharge Date Admission Date: February 25, 2022 Subjective POD #1 s/p Left poly exchange left TKA Review of Systems Constitutional: no fever, no chills and no sweats Respiratory: no cough and no dyspnea Cardiovascular: no chest pain and no dyspnea Gastrointestinal: no abdominal pain, no nausea and no vomiting Physical Exam Physical Exam: Vital Signs Temp 35.8 C L 02/26/22 03:18 Pulse 74 02/26/22 03:18 Resp 20 02/26/22 03:18 BP 109/57 L 02/26/22 03:18 Pulse Ox 94 02/26/22 03:18 Intake & Output 02/25/22 02/25/22 02/26/22 06:59 18:59 06:59 Intake Total 975 / 2958 1983 / 2958 Output Total 5 / 605 600 / 605 Balance 970 / 2353 1383 / 2353 Weight 82.3 kg 87.7 kg Intake: IV 275 / 1668 1393 / 1668 Clindamycin 60 0 mg In Dextrose 108 / 108 5% 50 ml @ 100 mls/hr IV Q8H DALLIN Rx#:[id number] Lactated Ringe r's 1,000 ml @ 15 0 / 0 mls/hr IV .Q24 H DALLIN Rx#: [id number] Sodium Chlorid e 0.9% 1000ML 1, 1285 / 1285 000 ml @ 100 m ls/hr IV .Q10H DALLIN Rx#:[id number] Vancomycin HCl 1,250 mg In 275 / 275 Sodium Chlorid e 0.9% 250 ml @ 200 mls/hr IV PREOP DALLIN Rx#: [id number] IV Perioperative 700 / 700 Oral 590 / 590 Output: Urine 600 / 600 Estimated Blood Loss 5 / 5 Other: Weight Measureme nt Method Standing Scale Built in Bedscale Musculoskeletal: Left Leg: NVDI, calf SNT, negative sacha sign. DP palpable, able to wiggle toes/ankle movement without difficulty. dressing clean dry and intact. Results & Data ([facility]) Vital Signs (Past 12 Hours) Vital Signs Temp Pulse Resp BP Pulse Ox 02/26/22 03:18 35.8 C L 74 20 109/57 L 94 02/25/22 23:11 36.4 C L 77 20 114/66 94 02/25/22 19:34 36.3 C L 77 18 118/70 95 Laboratory Results Laboratory Results SARS-CoV-2, RNA, NAAT NEGATIVE (NEGATIVE) 02/25/22 10:46 Blood Type O Positive 02/25/22 10:51 Antibody Screen NEGATIVE 02/25/22 10:51 Impressions Knee X-Ray 02/25/22 14:22 XR knee LT 1 or 2V routine HISTORY: 86 years-old Male Surgical Post Op left knee total joint arthroplasty COMPARISON: None TECHNIQUE: 2 views of the left knee FINDINGS: Left knee total joint arthroplasty with patellar resurfacing. Anterior midline skin margaret are noted along with expected postoperative soft tissue swelling with deep tissue air. No acute fracture or unexpected opaque foreign body. IMPRESSION: Left knee total joint arthroplasty with expected postoperative changes. ACT 112: Negative or not required by law. The above report was generated using voice recognition software. It may contain grammatical, syntax or spelling errors. Electronically signed by: Dakota Miller M.D. 02/25/2022 2:40 PM
[2022-02-26 08:03] LABS: Hematocrit (blood only) 36.8 % (42-52); Hemoglobin 11.9 g/dL (14.0-18.0); Mean Corpuscular Hemoglobin 27.6 pg (25-34); Mean Corpuscular Hgb Conc 32.3 g/dL (32-36); Mean Corpuscular Volume 85.4 fL (80-100); Mean Platelet Volume 11.9 fL (7.4-10.4); Platelet Count 151 K/uL (130-400); RDW Coefficient of Variation 15.9 % (11.5-14.5); Red Blood Count 4.31 M/uL (4.7-6.1); White Blood Count 10.21 K/uL (4.8-10.8)
[2022-02-26] MEDS: TICAGRELOR 90 MG TAB PO SCH (08:20)
[2022-02-26] MEDS: DOCUSATE SODIUM 100 MG CAP PO SCH (08:20)
[2022-02-26] MEDS: carvediloL 3.125 MG TAB PO SCH (08:21)
[2022-02-26 08:25] LABS: BUN Creatinine Ratio 16.8 (10-20); Calcium 8.4 mg/dl (8.5-10.1); Creatinine Clr Calc Pharmacy 47.4 ml/min; Est GFR (African American) 60.5 ml/min; Est GFR (Non-African American) 52.2 ml/min; Potassium 4.2 mmol/L (3.5-5.1)
[2022-02-26] MEDS ORDERED: RIVAROXABAN 10 MG TABLET PO SCH (09:00)
[2022-02-26] MEDS ORDERED: VALSARTAN 80 MG TAB PO SCH (09:00)
[2022-02-26] MEDS ORDERED: MULTIVITAMIN TAB PO SCH (09:00)
[2022-02-26] MEDS ORDERED: allopurinoL 100 MG TAB PO SCH (09:00)
[2022-02-26] MEDS ORDERED: EZETIMIBE 10 MG TABLET PO SCH (09:00)
[2022-02-26] MEDS ORDERED: FAMOTIDINE 40 MG TABLET PO SCH (09:00)
[2022-02-26] MEDS ORDERED: VERAPAMIL HCL 120 MG TABCR PO SCH (09:00)
--- NOTE | 2022-02-27 07:32 | Discharge Summary ---
Date of Service date of discharge: February 26, 2022 date of admission: 02/25/22 Admission HPI Per Admitting Provider Mr Singleton is a 86 year old male who presents with left knee pain, scheduled for left knee poly exchange with poss total knee revision. He has history of left TKA by Dr Mcdowell in approximately 2005 and did well until recently. Recently he has developed some laxity to his knee and feels that it "slips out of place". On exam has laxity with valgus/varus stress. He has undergone bone scan which did not show any obvious loosening to the prosthesis, underwent ESR and CRP, Dr Mcdowell had attempted aspiration but no fluid was able to be obtained. Principal Diagnosis painful left total knee with laxity Discharge Exam Vital Signs Temp 35.8 C L 02/26/22 03:18 Pulse 74 02/26/22 03:18 Resp 20 02/26/22 03:18 BP 109/57 L 02/26/22 03:18 Pulse Ox 94 02/26/22 03:18 Intake & Output 02/25/22 02/25/22 02/26/22 06:59 18:59 06:59 Intake Total 975 / 2958 1983 / 2958 Output Total 5 / 605 600 / 605 Balance 970 / 2353 1383 / 2353 Weight 82.3 kg 87.7 kg Intake: IV 275 / 1668 1393 / 1668 Clindamycin 600 mg In Dextrose 108 / 108 5% 50 ml @ 100 mls/hr IV Q8H DALLIN Rx#:[id number] Lactated Ringer's 1,000 ml @ 15 0 / 0 mls/hr IV .Q24H DALLIN Rx#: [id number] Sodium Chloride 0.9% 1000ML 1, 1285 / 1285 000 ml @ 100 mls/hr IV .Q10H [facility]ALLIN Rx#:[id number] Vancomycin HCl 1,250 mg In 275 / 275 Sodium Chloride 0.9% 250 ml @ 200 mls/hr IV PREOP DALLIN Rx#: [id number] IV Perioperative 700 / 700 Oral 590 / 590 Output: Urine 600 / 600 Estimated Blood Loss 5 / 5 Other: Weight Measurement Method Standing Scale Built in [facility] Constitutional WD/WN, vitals as above no acute distress Respiratory normal respiratory effort, lungs clear to auscultation no respiratory distress, no labored breathing and does not use accessory muscles Cardiovascular RRR, no murmur, no edema Gastrointestinal (Abdomen) normal bowel sounds, soft, nontender, no hepatosplenomegaly Musculoskeletal left knee: NVDI, calf SNT, negative sacha sign. DP palpable, able to wiggle toes/ankle movement without difficulty. CARIE dressing clean dry and intact. expected post-operative bruising noted. Discharge Data Allergies Allergy/AdvReac Type Severity Reaction Status Date / Time Cephalosporins Allergy Intermediate Rash Verified 02/25/22 10:52 fluticasone Allergy Intermediate Rash Verified 02/25/22 10:52 Iodinated Contrast Media Allergy Intermediate Hives Verified 02/25/22 10:52 Penicillins Allergy Intermediate Rash Verified 02/25/22 10:52 salmeterol Allergy Mild Rash Verified 02/25/22 10:52 cephalexin [From Keflex] Allergy Unknown Hives Verified 02/25/22 10:52 pravastatin Allergy Unknown myalgias Verified 02/25/22 10:52 atorvastatin AdvReac Mild MUSCLE Verified 02/25/22 10:52 ACHES fluvastatin AdvReac Mild MUSCLE Verified 02/25/22 10:52 ACHES lisinopril AdvReac Mild Cough Verified 02/25/22 10:52 rosuvastatin AdvReac Mild MUSCLE Verified 02/25/22 10:52 ACHES Procedures Performed Operation Date: 02/25/22 11:55 Actual Procedures p Left Knee Polyexchange Tibial Component - Ming Mcdowell DO Ordered Studies 02/25/22 05:00 US - OR guided needle placemen Routine Hospital Course (1) Painful total knee replacement, left: POD #1 s/p left TKA poly exchange pt/ot dvt proph with ALAYNA/SCD/resume Brilinta and ASA plan for d/c home with home health PT Total Time Total Time Spent Total Time Spent (In Minutes): 20 Discharge Plan Discharge Items Patient Disposition: Home - Home Health Services Reason For Visit: LEFT Knee Failed Joint Prosthesis Discharge Diagnosis: LEFT KNEE POLY EXCHANGE Activity: Per Instructions section Lifting: Wait until after follow-up appointment Weightbearing Comment: WBAT WITH WALKER Non-emergency contact: Surgeon Call non-emergency contact if: you have any medication questions, your tempe rature is above 101, your wound has increased redness, your wound has increased drainage and your wound pain has increased Follow-up/Referrals: Shan Torres DO [Primary Care Provider] - Diet: Regular Addtl Attending Provider Instructions: ACTIVITY RECOMMENDATIONS: SELF CARE INSTRUCTIONS AFTER TOTAL KNEE REPLACEMENT A. You may need to continue a physical therapy program after discharge from the hospital. There are several options available to you. Your doctor will assist you in selecting the best one for you. 1. An out-patient facility 2 to 3 times a week for therapy or home therapy. 2. Continue working on all exercises taught to you in the hospital. Your goals should be to increase bending of your knee to 90 degrees and beyond and to fully straighten your knee. B. You may progress at your own pace from walking with a walker or crutches to a cane; then to no assistive devices. C. Make walking a part of your daily routine. Be up as much as comfortable with rest periods throughout the day. Rest with leg elevation is very important. Use the ice wrap frequently for the first 3-4 weeks. D. There are no restrictions on activities. You may ride in a car, shop, participate in groover and turner and all social activities. E. Wear the long elastic stockings (ALAYNA hose) 20 hours a day for 2 weeks after surgery. They can be removed several times a day for laundering and for a bath. F. You may shower, no tub baths until cleared by your doctor. SPECIAL CARE INSTRUCTIONS: VERY IMPORTANT TO READ AND REVIEW A. There are a few signs you need to watch for after you are home. Call [facility] [place] if you notice any of the followin. Increased severe knee pain. Some pain is expected especially when you exercise. 2. Increased swelling in your leg or knee; pain or swelling of the calf muscle in either lower leg. 3. Any fluid drainage from the incision. 4. Shortness of breath or chest pain. B. Please call [facility] at if you have any concerns or questions about your operation or recovery. The doctor or his nurse will return your call promptly. C. You must take antibiotics before dental work, bladder, bowel or other surgery. Your doctor will provide you with a permanent care to carry describing this precaution. IMPORTANT: * REMEMBER TO TAKE ASPIRIN, 81 MG, TWICE DAILY FOR 4 WEEKS UNLESS OTHERWISE DIRECTED. THIS IS YOUR BLOOD THINNER. * HIGH RISK PATIENTS MAY BE PRESCRIBED A STRONGER BLOOD THINNER. THIS WILL BE PROVIDED AT DISCHARGE. * CALL IF INCREASED PAIN, REDNESS, DRAINAGE OR FEVER GREATER THAT 101. * WEAR ALAYNA HOSE 20 HOURS PER DAY FOR 2 WEEKS. * CARIE Dressing- This is a large suction dressing covering your incision. This will help pull any excess drainage from the wound and allow your incision to heal properly. You may shower with this if you can keep the unit outside of the shower. If any bleeding or leakage is noted please call your doctor's office. This will remain on your incision for 7 days and then should be removed. This can be done yourself or by the home nursing staff if applicable. The entire unit is disposable once removed. Once removed, keep incision clean and dry. If redness or drainage is noted, please call your surgeon. IF INCISION IS LEAKING THROUGH DRESSING, CALL THE OFFICE . FOLLOW UP VISIT: If appointment is not already scheduled: Please call [facility] [place] to make a follow-up appointment for 2 weeks after your surgery at . Pending Studies at Discharge: No Stand-Alone Forms: My [facility], Opioid Pain Management, Smoking Cessation Medications and DC Order Prescriptions: New acetaminophen [Tylenol Extra Strength] 500 mg Tablet 1,000 mg PO Q8 21 Days Qty: 126 RF: 0 oxycodone 5 mg Tablet 5 - 10 mg PO Q6H PRN (Reason: pain) Qty: 30 RF: 0 sulfamethoxazole-trimethoprim [Bactrim DS] 800-160 mg tablet 1 tab PO Q12H 7 Days Qty: 14 RF: 0 Continued ezetimibe [Zetia] 10 mg tablet 10 mg PO QAM Qty: 90 RF: 3 valsartan 40 mg tablet 20 mg PO QAM Qty: 30 RF: 11 carvedilol [Coreg] 3.125 mg tablet 3.125 mg PO BID Qty: 180 RF: 3 nitroglycerin 0.4 mg tablet, sublingual 0.4 mg sublingual Q5M PRN (Reason: chest pain) Qty: 30 RF: 6 allopurinol 100 mg tablet 100 mg PO QAM Qty: 30 RF: 3 verapamil 120 mg capsule,ext rel. pellets 24 hr 120 mg PO QAM 90 Days Qty: 90 RF: 1 Spiriva Respimat 2.5 mcg/actuation mist 2 inh inhalation QAM PRN (Reason: sob) RF: 0 Galzin 50 mg (zinc) capsule 50 mg PO QAM RF: 0 albuterol sulfate 90 mcg/actuation HFA aerosol inhaler 2 puffs INH QID PRN (Reason: Wheezing) RF: 0 cholecalciferol (vitamin D3) [Vitamin D3] 1,000 unit Capsule 2,000 unit PO HS RF: 0 famotidine 40 mg tablet 40 mg PO QAM RF: 0 aspirin [Adult Aspirin Regimen] 81 mg tablet,delayed release (DR/EC) 81 mg PO QAM RF: 0 pantoprazole 40 mg tablet,delayed release (DR/EC) 40 mg PO HS RF: 0 Brilinta 90 mg tablet 90 mg PO BID RF: 0 Discharge Orders: Discharge Order (Routine); Ordered 02/26/22 Ordered By: Austin Wilkins/Other Patient Handouts: Total Knee Replacement Admission Data Admit Date/Time: 02/25/22 14:22 Attending Provider: Ming Mcdowell Admit Provider: Ming Mcdowell Primary Care Provider: Shan Torres Other Providers: [facility],Home Healthcare Other Interventions: Discharge Summary Assessment (RN) Last Done: 02/26/22 10:27
== END 2022-02-26 13:45 | disposition home health service (06) | DRG 465 ==
LOC: ASU 10:31 → PACUINP 10:31 → OBSVTOIN 14:22 → 3W 16:27

== ENCOUNTER 2022-10-27 14:24 | Inpatient (IN) ==
[2022-10-27] MEDS ORDERED: diphenhydrAMINE 50 MG/ML VIAL IV STA (15:04)
[2022-10-27] MEDS ORDERED: SODIUM CHLORIDE 0.9% 1000ML 500 ML IV ONE (15:04)
--- NOTE | 2022-10-27 15:08 | Emergency Department Note ---
Impression & Plan Dysphagia, Dyspnea ED Provider Note ED Provider Note NAME: ESTUARDO PUGH AGE:87 SEX: Male : 1935 ARRIVES VIA: Private vehicle INFORMANT: Patient ED PROVIDER(s): Jaimee Fuller DO CHIEF COMPLAINT: Trouble swallowing, trouble breathing HPI: This is an 87-year-old male presents emergency family due to trouble swa llowing and trouble breathing. Patient states symptoms began overnight. Patient does have a history of COPD and prior lung cancer status post lobectomy. He states he does use MDIs and nebulizers at home, no home O2. States he has had increased cough recently although sputum is clear. He denies hemoptysis, fevers or chills. Patient states he has noticed over the last 6 to 8 months intermittent difficulty swallowing, although symptoms usually resolve. He states he noticed overnight a globus sensation. He denies pain with swallowing or sense of sore throat. Patient states this morning he ate cereal and a banana for breakfast and had difficulty swallowing however he did not have any vomiting or pain. He denies any recent increased heartburn or indigestion type symptoms. Patient denies any prior EGD. PAST MEDICAL HISTORY:See Below PAST SURGICAL HISTORY:See Below FAMILY HISTORY:See Below SOCIAL HISTORY:See Below HOME MEDICATIONS:See Below ALLERGIES:See Below VITALS:See Below PHYSICAL EXAMINATION: GENERAL: alert, well appearing, well nourished, no distress, non-toxic EYE EXAM: normal conjunctiva, PERRL and EOM's grossly intact OROPHARYNX: no exudate, no erythema, lips, buccal mucosa, and tongue normal and mucous membranes are moist, uvula midline, no soft palate edema, no mucocutaneous lesions NECK: supple, no nuchal rigidity, no adenopathy, non-tender, FROM, no stridor LUNGS: Clear to auscultation. Normal chest wall mechanics, no w/r/r HEART: no murmurs, S1 normal and S2 normal ABDOMEN: abdomen soft, non-tender, normo-active bowel sounds, no masses, no rebound or guarding. BACK: Back is symmetrical on inspection and there is no deformity, no midline tenderness, no CVA tenderness. SKIN: no rashes, petechiae, orbruising UPPER EXTREMITIES: upper extremities are grossly normal. FROM, nml pulses b/l. LOWER EXTREMITIES: No pitting edema. FROM, nml pulses b/l. NEURO EXAM: Normal sensorium, cranial nerves II-XII grossly intact, normal spe ech, no facial droop,nogross weakness of arms, no gross weakness of legs. Gross sensation intact. No ataxia. Vital Signs: reviewed and remarkable Differential Diagnosis: Foreign body, GERD, lymphadenopathy, malignancy, occult infection, deep space infection, as well as others were considered MEDICAL DECISION MAKING: This is an 87-year-old male presents emergency department due to concern for difficulty swallowing. Patient noted also noted some slight shortness of breath but feels it is related to the difficulty swallowing. He states symptoms were present even prior to eating breakfast this morning. Labs drawn and sent, IV established, chest x-ray and CT soft tissue neck were performed. Results reviewed with patient at bedside. He is stated that he felt his symptoms were slightly improved however an attempt to drink water bedside he had immediate worsening of symptoms and increased sense of pressure as though he may vomit. Patient with otherwise stable vital signs. Case discussed with GI on-call who agreed with plan for admission and EGD. Case discussed with hospitalist service. Patient and family at bedside verbalized understanding of results and plan. At this time I do not suspect occult infectious etiology or vascular emergency. Given chronicity of symptoms intermittent over the last several months, and no other obvious pathology noted on CT neck, unclear if this is related to other GI etiology such as esophageal stricture or mass. Consultation(s): 1729: Discussed with Dr. Mcneill. Will plan for admission to hospitalist service and EGD in am. 1824: Discussed with Dr. Jones, [place] hsopitalist service. ER Treatment Provided: 1714: Patient updated on results. He states the sensitive pressure and foreign body in his throat does seem improved as he has been sitting there. We did attempt a sip of water at bedside and patient with immediate worsening symptoms and increased sense of pressure. Diagnostics Interpreted By Me: -ECG: Normal sinus at 83, first-degree AV block, right bundle branch block, normal QTC, leftward axis, nonspecific ST/T wave changes; no significant changes compared to EKG from January 30, 2022 -Cardiac Monitoring: An order was placed for continuous cardiac monitoring. The monitor shows a rate of 80 with normal sinus rhythm. -Laboratory studies: As stated above and show below. -Imaging studies: Chest x-ray, CT soft tissue neck Triage Nursing Note Reviewed Prior/Outside Records Reviewed in EMR Past Med/Surg History Medical History Asthma Breathing stable CAD (coronary artery disease) S/p stents x4 (2015) to LAD S/p stent (2018) to D1 Known occluded distal LAD per cardio records On Brill[facility] Cancer of lung 1998 s/p lobectomy/chemo/xrt Cerebral aneurysm Followed by Neuro Head MRA 09/26/21= "Unchanged appearance of 2 small carotid artery aneurysms as detailed above. 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 No recent issues Hx pulmonary embolism Post-op (provoked in the setting of GI surgery) (01/2021) treated with Xarelto (Xarelto later discontinued after GI bleed) (no current problems) Hypertension Ischemic cardiomyopathy EF 35-40% per 12/2021 ECHO Follows with [facility] cardiology Laryngopharyngeal reflux Well controlled and stable Multifocal atrial tachycardia Neural hearing loss Pancreatic cyst Stable per 01/31/21 Abdomen/Pelvis CT scan Paroxysmal atrial tachycardia Sensorineural hearing loss of both ears Solitary pulmonary nodule 12/23/21 CT findings "stable" per pulmonary workload note 12/26/21 STEMI (ST elevation myocardial infarction) 2015, 2018 Tinnitus of right ear Surgical History History of arthroplasty of left shoulder History of cardiac catheterization History of colonoscopy History of excision of mass Hx of cataract surgery S/P appendectomy S/P excision of lipoma S/P laparoscopic cholecystectomy S/P lobectomy of lung S/P total knee arthroplasty Stented coronary artery Family History Brother Cancer Hypertension Sister Cancer Hypertension Diabetes Mother Hypertension Diabetes Unknown Coronary heart disease Father Coronary heart disease Daughter Breast cancer Other Lung cancer Myocardial infarction Denies family history of Ovarian cancer Prostate cancer Hearing loss No family history of adverse response to anesthesia No family history of bleeding disorder Heart disease Allergies Colorectal cancer Stroke Asthma Social History Smoking Status: Former smoker Tobacco Type: Cigarettes Age Started Using Tobacco: 23; Age Quit Using Tobacco: 51; packs per day: 0.5; Second Hand Exposure: No; Hx Alcohol Use: Yes (quit 1990) Hx Substance Use: No Preferred Language: Urdu Communication Ability: Effective Visual Impairment: Limited 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: Use of Hearing Aid Health Sciences Manager Required: No Beliefs That Will Affect Care: None marital status: Current Living Situation: Spouse current occupational status: retired current occupation: retired How many Children do You have: 1 Feels Safe at Home: Yes Childhood Exposure to Second-Hand Smoke: Yes caffeine: Yes (2 cups of coffee daily ) Dental Care, Regularly: No Physical Activity Frequency: Does not Exercise Seatbelt Use: always Sunscreen Use: Yes (sometimes) Do you think of yourself as: straight/heterosexual Assistive Devices: Cane and Walker Allergies Allergies Allergy/AdvReac Type Severity Reaction Status Date / Time Cephalosporins Allergy Intermediate Rash Verified 10/27/22 18:13 fluticasone Allergy Intermediate Rash Verified 10/27/22 18:13 Iodinated Contrast Media Allergy Intermediate Hives Verified 10/27/22 18:13 Penicillins Allergy Intermediate Rash Verified 10/27/22 18:13 salmeterol Allergy Mild Rash Verified 10/27/22 18:13 cephalexin [From Keflex] Allergy Unknown Hives Verified 10/27/22 18:13 pravastatin Allergy Unknown myalgias Verified 10/27/22 18:13 atorvastatin AdvReac Mild MUSCLE Verified 10/27/22 18:13 ACHES fluvastatin AdvReac Mild MUSCLE Verified 10/27/22 18:13 ACHES lisinopril AdvReac Mild Cough Verified 10/27/22 18:13 rosuvastatin AdvReac Mild MUSCLE Verified 10/27/22 18:13 ACHES Home Meds Home Medications Medication Instructions Recorded Confirmed cholecalciferol (vitamin D3) 25 2,000 unit PO HS 06/25/18 10/27/22 mcg (1,000 unit) capsule (Vitamin D3) zinc acetate 50 mg (zinc) capsule 50 mg PO QAM 03/23/20 10/27/22 (Galzin) albuterol sulfate 90 mcg/actuation 2 puffs inhalation QID PRN Wheezing 06/12/20 10/27/22 aerosol inhaler tiotropium bromide 2.5 2 inh inhalation QAM PRN sob 12/05/21 10/27/22 mcg/actuation mist for inhalation (Spiriva Respimat) aspirin 81 mg tablet,delayed 81 mg PO QAM 01/29/22 10/27/22 release (Adult Aspirin Regimen) Previous Rx's Medication Instructions Recorded carvedilol 3.125 mg tablet (Coreg) 3.125 mg PO BID #180 tabs 12/16/21 nitroglycerin 0.4 mg sublingual 0.4 mg sublingual Q5M PRN chest 12/23/21 tablet pain #30 tabs ezetimibe 10 mg tablet (Zetia) 10 mg PO QAM #90 tabs 04/09/22 valsartan 40 mg tablet 20 mg PO QAM #45 tabs 04/11/22 famotidine 40 mg tablet 40 mg PO QAM #30 tabs 04/23/22 pantoprazole 40 mg tablet,delayed 40 mg PO HS #30 tabs 05/19/22 release verapamil 120 mg 24 hr 120 mg PO QAM 90 days #90 caps 07/30/22 capsule,extended release allopurinol 100 mg tablet 100 mg PO QAM #90 tabs 08/12/22 ticagrelor 90 mg tablet (Brilinta) 90 mg PO BID #180 tabs 09/12/22 Results & Data (ED) Vital Signs Vital Signs - 24 hr 10/27/22 14:26 10/27/22 14:44 10/27/22 14:44 Temperature 36.2 C L Temperature Source Temporal Artery Scan Pulse Rate 85 Pulse Rate [Apical] 80 Respiratory Rate 16 16 Respiratory Effort / Characteristics Non-Labored Spontaneous Respiratory Depth Normal Normal Respiratory Pattern Regular Blood Pressure 171/81 H Blood Pressure [Left Arm] 148/81 H Blood Pressure Mean 111 Blood Pressure Mean [Left Arm] 103 Blood Pressure Position Sitting Pulse Oximetry 94 98 98 Oxygen Delivery Method Room Air Room Air Room Air Oxygen Flow Rate 0 Sepsis Recent Fever Within 48 Hours No Sepsis New/Unexplained Change in Mental Status No Sepsis Action Taken by Nursing No Action Required 10/27/22 16:25 10/27/22 18:00 Temperature Temperature Source Pulse Rate Pulse Rate [Apical] 79 Respiratory Rate 18 Respiratory Effort / Characteristics Respiratory Depth Respiratory Pattern Blood Pressure Blood Pressure [Left Arm] 147/83 H 147/83 H Blood Pressure Mean Blood Pressure Mean [Left Arm] 104 104 Blood Pressure Position Pulse Oximetry 94 97 Oxygen Delivery Method Room Air Oxygen Flow Rate Sepsis Recent Fever Within 48 Hours Sepsis New/Unexplained Change in Mental Status Sepsis Action Taken by Nursing Laboratory Data 10/27/22 14:40 10/27/22 14:40 Lab Results 10/27/22 10/27/22 10/27/22 Range/Units 14:40 14:40 14:40 WBC 5.35 (4.8-10.8) K/ul RBC 4.77 (4.63-6.08) M/uL Hgb 13.9 L (14.0-18.0) g/dl Hct 42.5 (40.1-51.0) % MCV 89.1 (80.0-100.0) fL MCH 29.1 (25.0-34.0) pg MCHC 32.7 (32.0-36.0) g/dL RDW Std Deviation 47.1 H (36.4-46.3) fL RDW Coeff of Falguni 14.6 H (11.5-14.5) % Plt Count 172 (130-400) K/uL MPV 11.6 (9.4-12.4) fL Immature Gran % (Auto) 0.6 % Neut % (Auto) 59.3 % Lymph % (Auto) 23.6 % [place] % (Auto) 11.6 % Eos % (Auto) 3.4 % Baso % (Auto) 1.5 % Neut # (Auto) 3.18 (1.4-6.5) K/uL Lymph # (Auto) 1.26 (1.2-3.4) K/uL [place] # (Auto) 0.62 (0.24-0.82) K/uL Eos # (Auto) 0.18 (0-0.50) K/uL Baso # (Auto) 0.08 (0-0.2) K/uL Immature Gran # (Auto) 0.03 H (0.00-0.02) K/uL PT 11.2 (9.0-12.0) Seconds INR 1.1 (0.9-1.1) Sodium 140 (136-145) mmol/L Potassium 4.3 (3.5-5.1) mmol/L Chloride 106 (98-107) mmol/L Carbon Dioxide 30 (21-32) mmol/L Anion Gap 4 (3-11) BUN 16 (6-23) mg/dl Creatinine 1.09 (0.6-1.4) mg/dl Est Cr Clr Drug Dosing 53.4 ml/min Est GFR ( Amer) 70.9 ml/min Est GFR (Non-Af Amer) 61.1 ml/min BUN/Creatinine Ratio 14.7 (10-20) Glucose 79 (70-99(Fasting)) mg/dl Calcium 9.1 (8.5-10.1) mg/dl Total Bilirubin 1.2 H (0.2-1.0) mg/dl AST 14 (13-39) U/L ALT 11 (7-52) U/L Alkaline Phosphatase 74 (34-104) U/L Troponin I High Sens 12.7 (0-20) pg/ml Total Protein 6.9 (6.0-8.3) gm/dl Albumin 4.0 (3.4-5.0) gm/dl Globulin 2.9 (2.5-4.0) gm/dl Albumin/Globulin Ratio 1.4 (0.9-2) TSH (0.300-4.500) uIu/ml Free T4 (0.61-1.60) ng/dl SARS-CoV-2, RNA, NAAT (NEGATIVE) 10/27/22 10/27/22 Range/Units 14:40 18:10 WBC (4.8-10.8) K/ul RBC (4.63-6.08) M/uL Hgb (14.0-18.0) g/dl Hct (40.1-51.0) % MCV (80.0-100.0) fL MCH (25.0-34.0) pg MCHC (32.0-36.0) g/dL RDW Std Deviation (36.4-46.3) fL RDW Coeff of Falguni (11.5-14.5) % Plt Count (130-400) K/uL MPV (9.4-12.4) fL Immature Gran % (Auto) % Neut % (Auto) % Lymph % (Auto) % [place] % (Auto) % Eos % (Auto) % Baso % (Auto) % Neut # (Auto) (1.4-6.5) K/uL Lymph # (Auto) (1.2-3.4) K/uL [place] # (Auto) (0.24-0.82) K/uL Eos # (Auto) (0-0.50) K/uL Baso # (Auto) (0-0.2) K/uL Immature Gran # (Auto) (0.00-0.02) K/uL PT (9.0-12.0) Seconds INR (0.9-1.1) Sodium (136-145) mmol/L Potassium (3.5-5.1) mmol/L Chloride (98-107) mmol/L Carbon Dioxide (21-32) mmol/L Anion Gap (3-11) BUN (6-23) mg/dl Creatinine (0.6-1.4) mg/dl Est Cr Clr Drug Dosing ml/min Est GFR ( Amer) ml/min Est GFR (Non-Af Amer) ml/min BUN/Creatinine Ratio (10-20) Glucose (70-99(Fasting)) mg/dl Calcium (8.5-10.1) mg/dl Total Bilirubin (0.2-1.0) mg/dl AST (13-39) U/L ALT (7-52) U/L Alkaline Phosphatase (34-104) U/L Troponin I High Sens (0-20) pg/ml Total Protein (6.0-8.3) gm/dl Albumin (3.4-5.0) gm/dl Globulin (2.5-4.0) gm/dl Albumin/Globulin Ratio (0.9-2) TSH 5.271 H (0.300-4.500) uIu/ml Free T4 0.86 (0.61-1.60) ng/dl SARS-CoV-2, RNA, NAAT NEGATIVE (NEGATIVE) Administered Medications Carvedilol (Carvedilol 3.125 Mg Tab) 3.125 mg PO BID [facility] Stop: 11/26/22 21:16 Last Admin: 10/27/22 22:31 Dose: 3.125 mg Documented By: JENNY Lactated Ringer's (Lr) 1,000 mls @ 125 mls/hr IV .Q8H DALLIN Stop: 11/26/22 21:16 Last Admin: 10/27/22 21:50 Dose: 125 mls/hr Documented By: JENNY Famotidine 20 mg/ Syringe 5 mls @ 2.5 mls/min IV BID DALLIN Stop: 11/26/22 23:29 Last Admin: 10/27/22 23:52 Dose: 2.5 mls/min Documented By: JENNY Discontinued Medications Diphenhydramine HCl (Diphenhydramine 50 Mg/Ml Vial) 25 mg IV NOW STA Stop: 10/27/22 15:05 Last Admin: 10/27/22 15:14 Dose: 25 mg Documented By: JAN Sodium Chloride (Nss 1000ml) 500 mls @ 125 mls/hr IV .Q4H ONE Stop: 10/27/22 19:03 Last Infusion: 10/27/22 19:38 Dose: 0 mls/hr Documented By: Admin: 10/27/22 15:14 Dose: 125 mls/hr Documented By: JAN Ioversol (Optiray 350 100ml) 87 ml IV ONCE ONE Stop: 10/27/22 16:36 Last Admin: 10/27/22 16:35 Dose: 87 ml Documented By: TIFFANY Methylprednisolone (Methylprednisolone 40 Mg/Ml Vial) 40 mg IV NOW STA Stop: 10/27/22 15:05 Last Admin: 10/27/22 15:14 Dose: 40 mg Documented By: JAN Imaging Data Radiologist's Impression: Chest X-Ray 10/27/22 15:04 XR chest 1V portable HISTORY: 87 years-old Male sob acute shortness of breath COMPARISON: Chest CT 12/23/2021 TECHNIQUE: AP view of the chest FINDINGS: Cardiomegaly. Coronary arterial stent. Severe emphysema with chronic interstitial coarsening. Chronic appearance of the left hemithorax with surgical clips project over the left hilum, left lung volume loss and chronic left hemidiaphragmatic elevation with left-sided pleural thickening. Degenerative changes of the shoulders and spine. IMPRESSION: 1. Advanced emphysema without acute process. 2. Chronic postoperative changes as above. ACT 112: Negative or not required by law. The above report was generated using voice recognition software. It may contain grammatical, syntax or spelling errors. Electronically signed by: Dakota Miller M.D. 10/27/2022 3:[address] Tissue Neck CT 10/27/22 15:04 CT soft tissue neck w con HISTORY: dysphagia TECHNIQUE: Multiaxial CT images of the neck were performed following the intravenous administration of 87 cc of Optiray 350. Sagittal and coronal reformations were performed at the workstation by the radiologist. COMPARISON STUDY: CT neck 07/06/2018. FINDINGS: The visualized brain parenchyma and orbits are unremarkable. The pterygopalatine fossa and paratracheal fat spaces are well-maintained. The major mucosal airways services are intact. Prevertebral soft tissues and the epiglottis are normal in thickness. The thyroid gland enhances normally. Chronic left apical pleural thickening is partially visualized. Advanced emphysema is again noted. Stable scarlike density within the right lung apex. No suspicious lytic or blastic osseous lesions. Small fluid level and mild mucosal thickening within the right maxillary sinus. The mastoid air cells are clear. The parotid and submandibular glands are symmetric. Small amount of gas adjacent to the right submandibular gland appears to be venous. There is a punctate calcification either within or adjacent to the left parotid gland on image 78. This is of doubtful clinical significance. The major cervical vessels are patent. No lymphadenopathy, masses, or abscess identified within the neck. IMPRESSION: 1. No significant abnormality identified within the neck. 2. Mild acute on chronic right maxillary sinusitis. 3. Additional findings as described above. ACT 112: Negative or not required by law. Electronically signed by: Jelani Hitchcock M.D. 10/27/2022 4:49 PM Discharge Plan Visit Data Chief Complaint: Shortness of Breath/Dyspnea Stated Complaint: SOB ED Provider: Jaimee Fuller Discharge Problem: Dysphagia, Dyspnea Patient Disposition: Admitted As Inpatient Discharge Instructions Interventions: ED Discharge Assessment Last Done: 10/27/22 18:45
--- NOTE | 2022-10-27 15:21 | XRay Report ---
XR chest 1V portable HISTORY: 87 years-old Male sob acute shortness of breath COMPARISON: Chest CT 12/23/2021 TECHNIQUE: AP view of the chest FINDINGS: Cardiomegaly. Coronary arterial stent. Severe emphysema with chronic interstitial coarsening. Chronic appearance of the left hemithorax with surgical clips project over the left hilum, left lung volume loss and chronic left hemidiaphragmatic elevation with left-sided pleural thickening. Degenerative ch anges of the shoulders and spine. IMPRESSION: 1. Advanced emphysema without acute process. 2. Chronic postoperative changes as above. ACT 112: Negative or not required by law. The above report was generated using voice recognition software. It may contain grammatical, syntax o r spelling errors. Electronically signed by: Dakota Miller M.D. 10/27/2022 3:19 PM
[2022-10-27 15:29] LABS: Basophils # (auto) 0.08 K/uL (0-0.2); Basophils % (auto) 1.5 %; Eosinophils # (auto) 0.18 K/uL (0-0.50); Eosinophils % (auto) 3.4 %; Hematocrit (blood only) 42.5 % (40.1-51.0); Hemoglobin 13.9 g/dl (14.0-18.0); Immature Granulocytes # (auto) 0.03 K/uL (0.00-0.02); Immature Granulocytes % (auto) 0.6 %; Lymphocytes # (auto) 1.26 K/uL (1.2-3.4); Lymphocytes % (auto) 23.6 %; Mean Corpuscular Hemoglobin 29.1 pg (25.0-34.0); Mean Corpuscular Hgb Conc 32.7 g/dL (32.0-36.0); Mean Corpuscular Volume 89.1 fL (80.0-100.0); Mean Platelet Volume 11.6 fL (9.4-12.4); Monocytes # (auto) 0.62 K/uL (0.24-0.82); Monocytes % (auto) 11.6 %; Neutrophils # (auto) 3.18 K/uL (1.4-6.5); Neutrophils % (auto) 59.3 %; Platelet Count 172 K/uL (130-400); RDW Coefficient of Variation 14.6 % (11.5-14.5); RDW Standard Deviation 47.1 fL (36.4-46.3); Red Blood Count 4.77 M/uL (4.63-6.08); White Blood Count 5.35 K/ul (4.8-10.8)
[2022-10-27 15:38] LABS: INR 1.1 (0.9-1.1); Prothrombin Time 11.2 Seconds (9.0-12.0)
[2022-10-27 15:50] LABS: Troponin I High Sensitivity 12.7 pg/ml (0-20)
[2022-10-27 15:51] LABS: Albumin Globulin Ratio 1.4 (0.9-2); BUN Creatinine Ratio 14.7 (10-20); Bilirubin,Total 1.2 mg/dl (0.2-1.0); Calcium 9.1 mg/dl (8.5-10.1); Creatinine Clr Calc Pharmacy 53.4 ml/min; Est GFR (African American) 70.9 ml/min; Est GFR (Non-African American) 61.1 ml/min; Globulin 2.9 gm/dl (2.5-4.0); Potassium 4.3 mmol/L (3.5-5.1); Total Protein 6.9 gm/dl (6.0-8.3)
[2022-10-27 15:58] LABS: Thyroid Stimulating Hormone 5.271 uIu/ml (0.300-4.500)
[2022-10-27] MEDS ORDERED: OPTIRAY 350 100ml IV ONE (16:35)
--- NOTE | 2022-10-27 16:50 | CT Scan Report ---
CT soft tissue neck w con HISTORY: dysphagia TECHNIQUE: Multiaxial CT images of the neck were performed following the intravenous administration o f 87 cc of Optiray 350. Sagittal and coronal reformations were performed at the workstation by the ra diologist. COMPARISON STUDY: CT neck 07/06/2018. FINDINGS: The visualized brain parenchyma and orbits are unremarkable. The pterygopalatine fossa and paratracheal fat spaces are well-maintained. The major mucosal airways services are intact. Preverteb ral soft tissues and the epiglottis are normal in thickness. The thyroid gland enhances normally. Chr onic left apical pleural thickening is partially visualized. Advanced emphysema is again noted. Stabl e scarlike density within the right lung apex. No suspicious lytic or blastic osseous lesions. Small fluid level and mild mucosal thickening within the right maxillary sinus. The mastoid air cells are c lear. The parotid and submandibular glands are symmetric. Small amount of gas adjacent to the right s ubmandibular gland appears to be venous. There is a punctate calcification either within or adjacent to the left parotid gland on image 78. This is of doubtful clinical significance. The major cervical vessels are patent. No lymphadenopathy, masses, or abscess identified within the neck. IMPRESSION: 1. No significant abnormality identified within the neck. 2. Mild acute on chronic right maxillary sinusitis. 3. Additional findings as described above. ACT 112: Negative or not required by law. Electronically signed by: Jelani Hitchcock M.D. 10/27/2022 4:49 PM
[2022-10-27 16:56] LABS: T4 Free Thyroxine 0.86 ng/dl (0.61-1.60)
--- NOTE | 2022-10-27 18:52 | History & Physical Report ---
Date of Service October 27, 2022 Assessment & Plan (1) Dysphagia: Plan: Slow progressive worsening over months NPO except meds, ice chips and sips with IV fluids Consult gastroenterology for EGD tomorrow (2) CAD (coronary artery disease): Plan: Initial STEMI in June 2015. Most recent STEMI in September 2019 with occlusion just proximal to prior LAD stents treated with balloon angioplasty to LAD into first diagonal stents. Stent thrombosis previously occurred while on clopidogrel. Continue aspirin 81 mg p.o. daily, hold Brilinta due to EGD tomorrow. Recommend restarting as soon as possible given re in-stent thrombosis previously. Continue carvedilol and valsartan Intolerant to multiple statins. Continue Zetia. (3) Ischemic cardiomyopathy: Plan: Continue carvedilol (4) HTN (hypertension): Plan: Continue carvedilol 3.125 mg p.o. twice daily, valsartan 20 mg p.o. daily and verapamil 120 mg p.o. daily (5) Gout: Plan: Continue allopurinol 100 mg p.o. daily (6) Hemiplegic migraine: Plan: Continue verapamil (7) Chronic obstructive pulmonary disease: Plan: Continue Spiriva. Reportedly take this as needed at home. (8) Cancer of lung: Plan: Previous history in 1998 s/p lobectomy/chemo/xrt (9) Laryngopharyngeal reflux: Plan: Switch famotidine and pantoprazole oral to IV Plan VTE prophylaxis - scds, chemical deferred pending EGD Diet - n.p.o. except meds, ice chips and sips Disposition - admit to [facility] Admission and Anticipated Discharge Date Admission Date: October 27, 2022 History of Present Illness Chief Complaint: Dysphagia Primary Care Provider: Shan Torres DO Agnieszka Singleton is an 87 year old male who presents to the ER with shortness of breath and dysphagia. Initially reported his symptoms started this morning around 2 AM after he took a sip of water but it would not go down. However on further discussion he reports it is been intermittent for the last 3 to 5 months getting progressively worse. He reports occasionally having to swallow 2-3 times to get food down. Food usually gets stuck quite high up, just below his throat. He reports being able to swallow his medications this morning. He reports no worse with different foods including liquids. Prior smoker -quit 27 years ago with a [id number] history. He previously had chemo and radiation due to lung cancer in 1998 and was diagnosed with esophageal spasms around 2000 which was thought to be a direct consequence of this. No known previous upper endoscopy. He also reports Dr Grove he had cyst on vocal cord and wonders whether this is related to his current complaints although he reports no changes to his voice. In the emergency room the ER provider discussed with gastroenterology with a plan for upper endoscopy tomorrow given he is unable to swallow liquids in the emergency room. Allergies Allergy/AdvReac Type Severity Reaction Status Date / Time Cephalosporins Allergy Intermediate Rash Verified 10/27/22 18:13 fluticasone Allergy Intermediate Rash Verified 10/27/22 18:13 Iodinated Contrast Media Allergy Intermediate Hives Verified 10/27/22 18:13 Penicillins Allergy Intermediate Rash Verified 10/27/22 18:13 salmeterol Allergy Mild Rash Verified 10/27/22 18:13 cephalexin [From Keflex] Allergy Unknown Hives Verified 10/27/22 18:13 pravastatin Allergy Unknown myalgias Verified 10/27/22 18:13 atorvastatin AdvReac Mild MUSCLE Verified 10/27/22 18:13 ACHES fluvastatin AdvReac Mild MUSCLE Verified 10/27/22 18:13 ACHES lisinopril AdvReac Mild Cough Verified 10/27/22 18:13 rosuvastatin AdvReac Mild MUSCLE Verified 10/27/22 18:13 ACHES Home Medications Medication Instructions Recorded Confirmed Type cholecalciferol (vitamin D3) 25 2,000 unit PO HS 06/25/18 10/27/22 History mcg (1,000 unit) capsule (Vitamin D3) zinc acetate 50 mg (zinc) capsule 50 mg PO QAM 03/23/20 10/27/22 History (Galzin) albuterol sulfate 90 mcg/actuation 2 puffs inhalation QID PRN Wheezing 06/12/20 10/27/22 History aerosol inhaler tiotropium bromide 2.5 2 inh inhalation QAM PRN sob 12/05/21 10/27/22 History mcg/actuation mist for inhalation (Spiriva Respimat) carvedilol 3.125 mg tablet (Coreg) 3.125 mg PO BID #180 tabs 12/16/21 10/27/22 Rx nitroglycerin 0.4 mg sublingual 0.4 mg sublingual Q5M PRN chest 12/23/21 Rx tablet pain #30 tabs aspirin 81 mg tablet,delayed 81 mg PO QAM 01/29/22 10/27/22 History release (Adult Aspirin Regimen) ezetimibe 10 mg tablet (Zetia) 10 mg PO QAM #90 tabs 04/09/22 10/27/22 Rx valsartan 40 mg tablet 20 mg PO QAM #45 tabs 04/11/22 10/27/22 Rx famotidine 40 mg tablet 40 mg PO QAM #30 tabs 04/23/22 10/27/22 Rx pantoprazole 40 mg tablet,delayed 40 mg PO HS #30 tabs 05/19/22 10/27/22 Rx release verapamil 120 mg 24 hr 120 mg PO QAM 90 days #90 caps 07/30/22 10/27/22 Rx capsule,extended release allopurinol 100 mg tablet 100 mg PO QAM #90 tabs 08/12/22 10/27/22 Rx ticagrelor 90 mg tablet (Brilinta) 90 mg PO BID #180 tabs 09/12/22 10/27/22 Rx Past Med/Surg History Medical History Asthma Breathing stable CAD (coronary artery disease) S/p stents x4 (2015) to LAD S/p stent (2018) to D1 Known occluded distal LAD per cardio records On Brillinta Cancer of lung 1998 s/p lobectomy/chemo/xrt Cerebral aneurysm Followed by Neuro Head MRA 09/26/21= "Unchanged appearance of 2 small carotid artery aneurysms as detailed above. 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 No recent issues Hx pulmonary embolism Post-op (provoked in the setting of GI surgery) (01/2021) treated with Xarelto (Xarelto later discontinued after GI bleed) (no current problems) Hypertension Ischemic cardiomyopathy EF 35-40% per 12/2021 ECHO Follows with [facility] cardiology Laryngopharyngeal reflux Well controlled and stable Multifocal atrial tachycardia Neural hearing loss Pancreatic cyst Stable per 01/31/21 Abdomen/Pelvis CT scan Paroxysmal atrial tachycardia Sensorineural hearing loss of both ears Solitary pulmonary nodule 12/23/21 CT findings "stable" per pulmonary workload note 12/26/21 STEMI (ST elevation myocardial infarction) 2016, 2018 Tinnitus of right ear Surgical History History of arthroplasty of left shoulder History of cardiac catheterization S/p stents x4 (2015) S/p stent (2019) to D1 Known occluded distal LAD per cardio records History of colonoscopy History of excision of mass Neck (2017) Hx of cataract surgery R/L S/P appendectomy S/P excision of lipoma S/P laparoscopic cholecystectomy Lap samy (01/28/21): Grade view 1, MAC#4, ETT 7.5 at [facility] S/P lobectomy of lung Left S/P total knee arthroplasty Left Stented coronary artery Family History Brother Cancer Hypertension Sister Cancer Hypertension Diabetes Mother Hypertension Diabetes Unknown Coronary heart disease Father Coronary heart disease Daughter Breast cancer Other Lung cancer Myocardial infarction Denies family history of Ovarian cancer Prostate cancer Hearing loss No family history of adverse response to anesthesia No family history of bleeding disorder Heart disease Allergies Colorectal cancer Stroke Asthma Social History Smoking Status: Former smoker Tobacco Type: Cigarettes Age Started Using Tobacco: 23; Age Quit Using Tobacco: 51; packs per day: 0.5; Second Hand Exposure: No; Hx Alcohol Use: Yes (quit 1990) Hx Substance Use: No Preferred Language: Mohawk Communication Ability: Effective Visual Impairment: Limited 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: Use of Hearing Aid Junior 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 Required: No Beliefs That Will Affect Care: None marital status: Current Living Situation: Spouse current occupational status: retired current occupation: retired How many Children do You have: 1 Feels Safe at Home: Yes Childhood Exposure to Second-Hand Smoke: Yes caffeine: Yes (2 cups of coffee daily ) Dental Care, Regularly: No Physical Activity Frequency: Does not Exercise Seatbelt Use: always Sunscreen Use: Yes (sometimes) Do you think of yourself as: straight/heterosexual Assistive Devices: Cane and Walker Review of Systems Review of Systems: All systems reviewed & are unremarkable except as noted in HPI & below Physical Exam Constitutional: WD/WN, vitals as above Eyes: + anicteric sclerae; normal pupil size ENMT: external ear and nose normal, oropharynx normal Respiratory: normal respiratory effort, lungs clear to auscultation Cardiovascular: Rate/Rhythm: regular rate and regular rhythm Heart Sounds: normal S1 and normal, physiologic split S2 Extremities: normal capillary re fill; no calf tenderness and no pedal edema Gastrointestinal (Abdomen): normal bowel sounds, soft, nontender, no hepatosplenomegaly Skin: no rashes, warm and dry Neurologic: moves all extremities and awake; not confused Psychiatric: A+Ox3, euthymic affect Results & Data Results & Data ([facility]) Vital Signs (Past 12 Hours) Vital Signs Temp Pulse Pulse Resp BP BP Pulse Ox 10/27/22 18:00 79 18 147/83 H 97 10/27/22 16:25 147/83 H 94 10/27/22 14:44 80 16 148/81 H 98 10/27/22 14:44 98 10/27/22 14:26 36.2 C L 85 16 171/81 H 94 O2 Del Method O2 Flow Rate 10/27/22 18:00 Room Air 10/27/22 16:25 10/27/22 14:44 Room Air 10/27/22 14:44 Room Air 0 10/27/22 14:26 Room Air Laboratory Results Abnormal lab results 10/27/22 10/27/22 10/27/22 Range/Units 14:40 14:40 14:40 Hgb 13.9 L (14.0-18.0) g/dl RDW Std Deviation 47.1 H (36.4-46.3) fL RDW Coeff of Falguni 14.6 H (11.5-14.5) % Immature Gran # (Auto) 0.03 H (0.00-0.02) K/uL Total Bilirubin 1.2 H (0.2-1.0) mg/dl TSH 5.271 H (0.300-4.500) uIu/ml Diagnostic Findings XR chest 1V portable HISTORY: 87 years-old Male sob acute shortness of breath COMPARISON: Chest CT 12/23/2021 TECHNIQUE: AP view of the chest FINDINGS: Cardiomegaly. Coronary arterial stent. Severe emphysema with chronic interstitial coarsening. Chronic appearance of the left hemithorax with surgical clips project over the left hilum, left lung volume loss and chronic left hemidiaphragmatic elevation with left-sided pleural thickening. Degenerative changes of the shoulders and spine. IMPRESSION: 1. Advanced emphysema without acute process. 2. Chronic postoperative changes as above. CT soft tissue neck w con HISTORY: dysphagia TECHNIQUE: Multiaxial CT images of the neck were performed following the intravenous administration of 87 cc of Optiray 350. Sagittal and coronal reformations were performed at the workstation by the radiologist. COMPARISON STUDY: CT neck 07/06/2018. FINDINGS: The visualized brain parenchyma and orbits are unremarkable. The pterygopalatine fossa and paratracheal fat spaces are well-maintained. The major mucosal airways services are intact. Prevertebral soft tissues and the epiglottis are normal in thickness. The thyroid gland enhances normally. Chronic left apical pleural thickening is partially visualized. Advanced emphysema is again noted. Stable scarlike density within the right lung apex. No suspicious lytic or blastic osseous lesions. Small fluid level and mild mucosal thickening within the right maxillary sinus. The mastoid air cells are clear. The parotid and submandibular glands are symmetric. Small amount of gas adjacent to the right submandibular gland appears to be venous. There is a punctate ca lcification either within or adjacent to the left parotid gland on image 78. This is of doubtful clinical significance. The major cervical vessels are patent. No lymphadenopathy, masses, or abscess identified within the neck. IMPRESSION: 1. No significant abnormality identified within the neck. 2. Mild acute on chronic right maxillary sinusitis. 3. Additional findings as described above. Medications Administered ER medications given: Diphenhydramine 25 mg IV Solu-Medrol 40 mg IV NSS 500 mL @ 125ml/hr ECG Indication: SOB/dyspnea Rate (beats per minute): 83 Rhythm: normal sinus Findings: + LAFB and + RBBB; no acute ischemic change Comparison ECG Date: from (January 31, 2020) Change: no significant change Code Status & VTE Plan Code Status Full VTE Prophylaxis Plan VTE Prophylaxis will be ordered: Yes PG Care Time/CCT Total # of Minutes Spent Total Time Spent with Patient: Total time spent is greater than 50% in coordination of care (as documented) at patient's floor/unit and/or counseling patient: Coding Level of Care Code 35725 INT INP/OBS CARE 3/75MIN Diagnoses Dysphagia R13.10 CAD (coronary artery disease) I25.119 Associated angina: with unspecified angina Coronary Disease-Associated Artery/Lesion type: unspecified vessel or lesion type [place] vs. transplanted heart: enterprise heart Ischemic cardiomyopathy I25.5 HTN (hypertension) I10 Hypertension type: essential hypertension Gout M10.9 Hemiplegic migraine G43.409 Chronic obstructive pulmonary disease J44.9 Cancer of lung C34.90 Laryngopharyngeal reflux K21.9 (1) CAD (coronary artery disease) Associated angina: with unspecified angina Coronary Disease-Associated Artery/Lesion type: unspecified vessel or lesion type [place] vs. transplanted heart: enterprise heart Qualified Code(s): I25.119 - Atherosclerotic heart disease of enterprise coronary artery with unspecified angina pectoris (2) HTN (hypertension) Hypertension type: essential hypertension Qualified Code(s): I10 - Essential (primary) hypertension
[2022-10-27] MEDS: LACTATED RINGER'S 1,000 ML IV SCH (21:50)
[2022-10-27] MEDS: carvediloL 3.125 MG TAB PO SCH (22:31)
[2022-10-27] MEDS: FAMOTIDINE 20 MG in SYRINGE 3 ML IV SCH (23:52)
[2022-10-28] MEDS: LACTATED RINGER'S 1,000 ML IV SCH ×3 (05:31→20:01)
--- NOTE | 2022-10-28 06:22 | Electrocardiogram Report ---
Test Reason : Blood Pressure : / mmHG Vent. Rate : 083 BPM Atrial Rate : 083 BPM P-R Int : 208 ms QRS Dur : 138 ms QT Int : 404 ms P-R-T Axes : 066 -78 053 degrees QTc Int : 474 ms Normal sinus rhythm Right bundle branch block Left anterior fascicular block Bifascicular block Possible Septal infarct (cited on or before 27-OCT-2022) Abnormal ECG When compared with ECG of 30-JAN-2022 11:34, Nonspecific T wave abnormality has replaced inverted T waves in Lateral leads Confirmed by Josh Gillis ([id number]) on 10/28/2022 6:21:58 AM Referred By: Confirmed By:Josh Gillis
[2022-10-28] MEDS: FAMOTIDINE 20 MG in SYRINGE 3 ML IV SCH ×2 (08:55→21:03)
[2022-10-28] MEDS: VALSARTAN 80 MG TAB PO SCH (08:56)
[2022-10-28] MEDS: ASPIRIN 81 MG ECTAB PO SCH (08:56)
[2022-10-28] MEDS: carvediloL 3.125 MG TAB PO SCH ×2 (08:56→19:54)
[2022-10-28] MEDS: UMECLIDINIUM BROMIDE 62.5MCG/BLISTER 7 PUFFS/INHALER INH SCH (08:56)
[2022-10-28] MEDS: allopurinoL 100 MG TAB PO SCH (08:56)
[2022-10-28] MEDS: VERAPAMIL HCL 120 MG TABCR PO SCH (08:56)
--- NOTE | 2022-10-28 09:20 | Gastrointestinal Consultation ---
Date of Consultation October 28, 2022 Assessment & Plan (1) Dysphagia: 87 year old male admitted with solids dysphagia, worsening acutely yesterday around 2pm. Denies any current s/s of food impaction, no foreign body sensations, tolerating secretions and was tolerating liquids prior to NPO status Hold ASA and Brillinta in anticipation of dilation Arrange esophagram today Can have liquids after esophagram is study is unremarkable Will plan for tentative EGD later this week after discussion with attending. Thank you for allowing us to participate in the care of this patient. Please call with any acute changes, questions or concerns. Please see addendum below with additional recommendation from my supervising physician. Supervising Physician Co-Signing Physician Notes I have seen and examined the patient with MITA Mcmanus whose note reflects our findings and plan. Patient with dysphagia for solids. Tolerating liquids. has had some symptoms off and on for months. Will hold anticoagulants and plan for EGD . History of Present Illness Reason for Consultation: dysphagia Requesting Physician: Chloe Attending Physician: Juan Ramon Corona History of Present Illness 87 year old male with history of HTN, CAD, s/p cardiac stent, NSTEMI, cardiomyopathy, migraines, COPD, CKD, dyslipidemia, lung CA s/p radiation therapy years ago, esopahgal spasms who was admitted through the ED for SOB and dysphagia. Pt was seen and evaluated, chart reviewed. He notes he developed difficultly swallowing fairly acutely yesterday around 2 pm. Suggests presently he does not feel any symptoms of impactions but is unable to swallow solids. Liquids go down fine. Tolerating secretions. HPI suggests he has had intermittent symptoms for the past few months. Denies weight loss, fever, chills ,CP, SOB. Has never had EGD Allergies Allergy/AdvReac Type Severity Reaction Status Date / Time Cephalosporins Allergy Intermediate Rash Verified 10/27/22 18:13 fluticasone Allergy Intermediate Rash Verified 10/27/22 18:13 Iodinated Contrast Media Allergy Intermediate Hives Verified 10/27/22 18:13 Penicillins Allergy Intermediate Rash Verified 10/27/22 18:13 salmeterol Allergy Mild Rash Verified 10/27/22 18:13 cephalexin [From Keflex] Allergy Unknown Hives Verified 10/27/22 18:13 pravastatin Allergy Unknown myalgias Verified 10/27/22 18:13 atorvastatin AdvReac Mild MUSCLE Verified 10/27/22 18:13 ACHES fluvastatin AdvReac Mild MUSCLE Verified 10/27/22 18:13 ACHES lisinopril AdvReac Mild Cough Verified 10/27/22 18:13 rosuvastatin AdvReac Mild MUSCLE Verified 10/27/22 18:13 ACHES Home Medications Medication Instructions Recorded Confirmed Type cholecalciferol (vitamin D3) 25 2,000 unit PO HS 06/25/18 10/27/22 History mcg (1,000 unit) capsule (Vitamin D3) zinc acetate 50 mg (zinc) capsule 50 mg PO QAM 03/23/20 10/27/22 History (Galzin) albuterol sulfate 90 mcg/actuation 2 puffs inhalation QID PRN Wheezing 06/12/20 10/27/22 History aerosol inhaler tiotropium bromide 2.5 2 inh inhalation QAM PRN sob 12/05/21 10/27/22 History mcg/actuation mist for inhalation (Spiriva Respimat) carvedilol 3.125 mg tablet (Coreg) 3.125 mg PO BID #180 tabs 12/16/21 10/27/22 Rx nitroglycerin 0.4 mg sublingual 0.4 mg sublingual Q5M PRN chest 12/23/21 10/27/22 Rx tablet pain #30 tabs aspirin 81 mg tablet,delayed 81 mg PO QAM 01/29/22 10/27/22 History release (Adult Aspirin Regimen) ezetimibe 10 mg tablet (Zetia) 10 mg PO QAM #90 tabs 04/09/22 10/27/22 Rx valsartan 40 mg tablet 20 mg PO QAM #45 tabs 04/11/22 10/27/22 Rx famotidine 40 mg tablet 40 mg PO QAM #30 tabs 04/23/22 10/27/22 Rx pantoprazole 40 mg tablet,delayed 40 mg PO HS #30 tabs 05/19/22 10/27/22 Rx release verapamil 120 mg 24 hr 120 mg PO QAM 90 days #90 caps 07/30/22 10/27/22 Rx capsule,extended release allopurinol 100 mg tablet 100 mg PO QAM #90 tabs 08/12/22 10/27/22 Rx ticagrelor 90 mg tablet (Brilinta) 90 mg PO BID #180 tabs 09/12/22 10/27/22 Rx Patient History Medical History Asthma Breathing stable CAD (coronary artery disease) S/p stents x4 (2015) to LAD S/p stent (2018) to D1 Known occluded distal LAD per cardio records On Brillinta Cancer of lung 1998 s/p lobectomy/chemo/xrt Cerebral aneurysm Followed by Neuro Head MRA 09/26/21= "Unchanged appearance of 2 small carotid artery aneurysms as detailed above. 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 No recent issues Hx pulmonary embolism Post-op (provoked in the setting of GI surgery) (01/2021) treated with Xarelto (Xarelto later discontinued after GI bleed) (no current problems) Hypertension Ischemic cardiomyopathy EF 35-40% per 12/2021 ECHO Follows with [facility] cardiology Laryngopharyngeal reflux Well controlled and stable Multifocal atrial tachycardia Neural hearing loss Pancreatic cyst Stable per 01/31/21 Abdomen/Pelvis CT scan Paroxysmal atrial tachycardia Sensorineural hearing loss of both ears Solitary pulmonary nodule 12/23/21 CT findings "stable" per pulmonary workload note 12/26/21 STEMI (ST elevation myocardial infarction) 2015, 2018 Tinnitus of right ear Surgical History History of arthroplasty of left shoulder History of cardiac catheterization S/p stents x4 (2015) S/p stent (2019) to D1 Known occluded distal LAD per cardio records History of colonoscopy History of excision of mass Neck (2017) Hx of cataract surgery R/L S/P appendectomy S/P excision of lipoma S/P laparoscopic cholecystectomy Lap samy (01/28/21): Grade view 1, MAC#4, ETT 7.5 at [facility] S/P lobectomy of lung Left S/P total knee arthroplasty Left Stented coronary artery Family History Brother Cancer Hypertension Sister Cancer Hypertension Diabetes Mother Hypertension Diabetes Unknown Coronary heart disease Father Coronary heart disease Daughter Breast cancer Other Lung cancer Myocardial infarction Denies family history of Ovarian cancer Prostate cancer Hearing loss No family history of adverse response to anesthesia No family history of bleeding disorder Heart disease Allergies Colorectal cancer Stroke Asthma Social History Smoking Status: Former smoker Tobacco Type: Cigarettes Age Started Using Tobacco: 23; Age Quit Using Tobacco: 51; packs per day: 0.5; Second Hand Exposure: No; Do You Dip or Chew Tobacco: No; Tobacco Cessation Education Requested by Patient: No Hx Alcohol Use: No Hx Substance Use: No Preferred Language: Macedonian Communication Ability: Effective Visual Impairment: Limited 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: Use of Hearing Aid Beading Sawyer Required: No Beliefs That Will Affect Care: None marital status: Current Living Situation: Spouse current occupational status: retired current occupation: retired How many Children do You have: 1 Other Information That Helps Us Care for You: No Feels Safe at Home: Yes Safety Concerns: Feels Safe At This Time Childhood Exposure to Second-Hand Smoke: Yes caffeine: Yes (2 cups of coffee daily ) Dental Care, Regularly: No Physical Activity Frequency: Does not Exercise Seatbelt Use: always Sunscreen Use: Yes (sometimes) Do you think of yourself as: straight/heterosexual Assistive Devices: None Review of Systems Review of Systems: All systems reviewed & are unremarkable except as noted in HPI & below Physical Exam Constitutional: WD/WN, vitals as above Respiratory: normal respiratory effort, lungs clear to auscultation Cardiovascular: Rate/Rhythm: regular rate and regular rhythm Gastrointestinal (Abdomen): normal bowel sounds, soft, nontender, no hepatosplenomegaly Skin: no rashes, warm and dry Results & Data ([facility]) Vital Signs (Past 12 Hours) Vital Signs Temp Pulse Resp BP Pulse Ox O2 Del Method 10/28/22 07:59 36.7 C 87 20 144/72 H 95 Room Air 10/27/22 21:17 36.7 C 87 18 160/78 H 96 Room Air Laboratory Results 10/27/22 10/27/22 10/27/22 Range/Units 18:10 14:40 14:40 WBC (4.8-10.8) K/ul RBC (4.63-6.08) M/uL Hgb (14.0-18.0) g/dl Hct (40.1-51.0) % MCV (80.0-100.0) fL MCH (25.0-34.0) pg MCHC (32.0-36.0) g/dL RDW Std Deviation (36.4-46.3) fL RDW Coeff of Falguni (11.5-14.5) % Plt Count (130-400) K/uL MPV (9.4-12.4) fL Immature Gran % (Auto) % Neut % (Auto) % Lymph % (Auto) % [place] % (Auto) % Eos % (Auto) % Baso % (Auto) % Neut # (Auto) (1.4-6.5) K/uL Lymph # (Auto) (1.2-3.4) K/uL [place] # (Auto) (0.24-0.82) K/uL Eos # (Auto) (0-0.50) K/uL Baso # (Auto) (0-0.2) K/uL Immature Gran # (Auto) (0.00-0.02) K/uL PT (9.0-12.0) Seconds INR (0.9-1.1) Sodium 140 (136-145) mmol/L Potassium 4.3 (3.5-5.1) mmol/L Chloride 106 (98-107) mmol/L Carbon Dioxide 30 (21-32) mmol/L Anion Gap 4 (3-11) BUN 16 (6-23) mg/dl Creatinine 1.09 (0.6-1.4) mg/dl Est Cr Clr Drug Dosing 53.4 ml/min Est GFR ( Amer) 70.9 ml/min Est GFR (Non-Af Amer) 61.1 ml/min BUN/Creatinine Ratio 14.7 (10-20) Glucose 79 (70-99(Fasting)) mg/dl Calcium 9.1 (8.5-10.1) mg/dl Total Bilirubin 1.2 H (0.2-1.0) mg/dl AST 14 (13-39) U/L ALT 11 (7-52) U/L Alkaline Phosphatase 74 (34-104) U/L Troponin I High Sens 12.7 (0-20) pg/ml Total Protein 6.9 (6.0-8.3) gm/dl Albumin 4.0 (3.4-5.0) gm/dl Globulin 2.9 (2.5-4.0) gm/dl Albumin/Globulin Ratio 1.4 (0.9-2) TSH 5.271 H (0.300-4.500) uIu/ml Free T4 0.86 (0.61-1.60) ng/dl SARS-CoV-2, RNA, NAAT NEGATIVE (NEGATIVE) 10/27/22 10/27/22 Range/Units 14:40 14:40 WBC 5.35 (4.8-10.8) K/ul RBC 4.77 (4.63-6.08) M/uL Hgb 13.9 L (14.0-18.0) g/dl Hct 42.5 (40.1-51.0) % MCV 89.1 (80.0-100.0) fL MCH 29.1 (25.0-34.0) pg MCHC 32.7 (32.0-36.0) g/dL RDW Std Deviation 47.1 H (36.4-46.3) fL RDW Coeff of Falguni 14.6 H (11.5-14.5) % Plt Count 172 (130-400) K/uL MPV 11.6 (9.4-12.4) fL Immature Gran % (Auto) 0.6 % Neut % (Auto) 59.3 % Lymph % (Auto) 23.6 % [place] % (Auto) 11.6 % Eos % (Auto) 3.4 % Baso % (Auto) 1.5 % Neut # (Auto) 3.18 (1.4-6.5) K/uL Lymph # (Auto) 1.26 (1.2-3.4) K/uL [place] # (Auto) 0.62 (0.24-0.82) K/uL Eos # (Auto) 0.18 (0-0.50) K/uL Baso # (Auto) 0.08 (0-0.2) K/uL Immature Gran # (Auto) 0.03 H (0.00-0.02) K/uL PT 11.2 (9.0-12.0) Seconds INR 1.1 (0.9-1.1) Sodium (136-145) mmol/L Potassium (3.5-5.1) mmol/L Chloride (98-107) mmol/L Carbon Dioxide (21-32) mmol/L Anion Gap (3-11) BUN (6-23) mg/dl Creatinine (0.6-1.4) mg/dl Est Cr Clr Drug Dosing ml/min Est GFR ( Amer) ml/min Est GFR (Non-Af Amer) ml/min BUN/Creatinine Ratio (10-20) Glucose (70-99(Fasting)) mg/dl Calcium (8.5-10.1) mg/dl Total Bilirubin (0.2-1.0) mg/dl AST (13-39) U/L ALT (7-52) U/L Alkaline Phosphatase (34-104) U/L Troponin I High Sens (0-20) pg/ml Total Protein (6.0-8.3) gm/dl Albumin (3.4-5.0) gm/dl Globulin (2.5-4.0) gm/dl Albumin/Globulin Ratio (0.9-2) TSH (0.300-4.500) uIu/ml Free T4 (0.61-1.60) ng/dl SARS-CoV-2, RNA, NAAT (NEGATIVE)
--- NOTE | 2022-10-28 10:04 | Progress Note ---
Date of Service October 28, 2022 Assessment & Plan (1) Dysphagia: Plan: Slow -p-rogressive worsening over months GI fine w/ liquids for now. EGD planned for . Will hold ASA/Brilinta in anticipation of procedure. Will make NPO after midnight on AM (2) CAD (coronary artery disease): Plan: Initial STEMI in June 2015. Most recent STEMI in September 2019 with occlusion just proximal to prior LAD stents treated with balloon angioplasty to LAD into first diagonal stents. Stent thrombosis previously occurred while on clopidogrel. Continue aspirin 81 mg p.o. daily, hold Brilinta due to EGD tomorrow. Recommend restarting as soon as possible given re in-stent thrombosis previously. Continue carvedilol and valsartan Intolerant to multiple statins. Continue Zetia. Associated angina: with unspecified angina Coronary Disease- Associated Artery/Lesion type: unspecified vessel or lesion type [place] vs. transplanted heart: redding heart Qualified Code(s): I25.119 - Atherosclerotic heart disease of [place] coronary artery with unspecified angina pectoris (3) Ischemic cardiomyopathy: Plan: Continue carvedilol (4) HTN (hypertension): Plan: Continue carvedilol 3.125 mg p.o. twice daily, valsartan 20 mg p.o. daily and verapamil 120 mg p.o. daily Hypertension type: essential hypertension Qualified Code(s): I10 - Essential (primary) hypertension (5) Gout: Plan: Continue allopurinol 100 mg p.o. daily (6) Hemiplegic migraine: Plan: Continue verapamil (7) Chronic obstructive pulmonary disease: Plan: Continue Spiriva. Reportedly take this as needed at home. (8) Cancer of lung: Plan: Previous history in 1998 s/p lobectomy/chemo/xrt (9) Laryngopharyngeal reflux: Plan: Switch famotidine and pantoprazole oral to IV Plan VTE prophylaxis - scds, chemical deferred pending EGD Diet - n.p.o. except meds, ice chips and sips Disposition - admit to [facility] Admission and Anticipated Discharge Date Admission Date: October 27, 2022 Subjective Patient seen and evaluated bedside. Reports some persistent globus sensation, but denies complaint of pain. Tolerating liquids. Reports that he is hungry and requesting diet Review of Systems Review of Systems: A complete 6 point review of systems was reviewed with the patient with pertinent positives and negatives as per history of present illness. All else were negative. Physical Exam Physical Exam: VITAL SIGNS - Vital signs and nursing notes were reviewed. GENERAL - 87-year-old male appearing his stated age who is in no acute distress. Communicates well with provider and answers questions appropriately. MOUTH/OROPHARYNX - Without perioral cyanosis. Buccal mucosa pink and moist. LUNGS - Chest wall symmetric without accessory muscle use, intercostals retractions, or central cyanosis. Normal vesicular breath sounds CTA B/L. No wheezes, rales, or rhonchi appreciated. CARDIAC - RRR with S1/S2. No murmur, rubs, or gallops appreciated. ABDOMEN - Abdominal contour without pulsations or visible masses. Tenderness to palpation appreciated. PSYCH - A&Ox3 and cooperates fully with examiner. Pt is very pleasant and interacts well with examiner. Results & Data ([facility]) Vital Signs (Past 12 Hours) Vital Signs Temp Pulse Resp BP Pulse Ox O2 Del Method 10/28/22 07:59 36.7 C 87 20 144/72 H 95 Room Air PG Care Time/CCT Total # of Minutes Spent Total Time Spent with Patient: Total time spent is greater than 50% in coordination of care (as documented) at patient's floor/unit and/or counseling patient: Coding Level of Care Code 53055 SUB INP/OBS CARE 3/50MIN Diagnoses Dysphagia R13.10 CAD (coronary artery disease) I25.119 Associated angina: with unspecified angina Coronary Disease-Associated Artery/Lesion type: unspecified vessel or lesion type [place] vs. transplanted heart: redding heart Ischemic cardiomyopathy I25.5 HTN (hypertension) I10 Hypertension type: essential hypertension Gout M10.9 Hemiplegic migraine G43.409 Chronic obstructive pulmonary disease J44.9 Cancer of lung C34.90 Laryngopharyngeal reflux K21.9 Time Spent (min) 32
[2022-10-28] MEDS: PANTOprazole 40 MG in SYRINGE 0 ML IV SCH (11:39)
[2022-10-29] MEDS: LACTATED RINGER'S 1,000 ML IV SCH ×2 (03:54→12:41)
--- NOTE | 2022-10-29 09:14 | Communication Note ---
Date of Service: October 29, 2022 Pt was seen, evaluated, chart reviewed. Persistent dysphagia this AM. His blood thinner has been held in anticipation for EGD this week. May have clear liquids today. Please keep him NPO after midnight for EGD .
[2022-10-29] MEDS ORDERED: LOPERAMIDE LIQUID 120 ML BOTTLE PO PRN (09:26)
--- NOTE | 2022-10-29 09:37 | Progress Note ---
Date of Service October 29, 2022 Assessment & Plan (1) Dysphagia: Plan: * Slow progressively worsening over months. * Patient tolerating liquid diet. * EGD planned for . * Will hold ASA/Brilinta in anticipation of procedure per GI request. * Will make NPO after midnight tonight in anticipation for EGD. (2) CAD (coronary artery disease): Plan: * Initial STEMI in June 2015. Most recent STEMI in September 2019 with occlusion just proximal to prior LAD stents treated with balloon angioplasty to LAD into first diagonal stents. * Stent thrombosis previously occurred while on clopidogrel. * Continue aspirin 81 mg p.o. daily, hold Brilinta due to EGD tomorrow. Recommend restarting as soon as possible given re in-stent thrombosis previously. * Continue carvedilol and valsartan * Intolerant to multiple statins. Continue Zetia. Associated angina: with unspecified angina Coronary Disease- Associated Artery/Lesion type: unspecified vessel or lesion type [place] vs. transplanted heart: [place] heart Qualified Code(s): I25.119 - Atherosclerotic heart disease of [place] coronary artery with unspecified angina pectoris (3) Ischemic cardiomyopathy: Plan: * Continue carvedilol (4) HTN (hypertension): Plan: * Continue carvedilol 3.125 mg p.o. twice daily, valsartan 20 mg p.o. daily and verapamil 120 mg p.o. daily Hypertension type: essential hypertension Qualified Code(s): I10 - Essential (primary) hypertension (5) Gout: Plan: * Continue allopurinol 100 mg p.o. daily (6) Hemiplegic migraine: Plan: * Continue verapamil (7) Chronic obstructive pulmonary disease: Plan: * Continue Spiriva. Reportedly take this as needed at home. (8) Cancer of lung: Plan: * Previous history in 1998 s/p lobectomy/chemo/xrt (9) Laryngopharyngeal reflux: Plan: * Switch famotidine and pantoprazole oral to IV Plan VTE prophylaxis - scds, chemical deferred pending EGD Diet - n.p.o. except meds, ice chips and sips Disposition - admit to [facility] Admission and Anticipated Discharge Date Admission Date: October 27, 2022 Subjective Patient seen and evaluated at bedside. He offers no complaints at this time. He has been tolerating a liquid diet without issue. Patient does complain of some episodes of diarrhea last night. He states this happens frequently at home as well. He is requesting Imodium. He is anxious for intervention so he can progress his diet. Otherwise, he offers no complaints. Review of Systems Review of Systems: A complete 6 point review of systems was reviewed with the patient with pertinent positives and negatives as per history of present illness. All else were negative. Physical Exam Physical Exam: VITAL SIGNS - Vital signs and nursing notes were reviewed. GENERAL - 87-year-old male appearing his stated age who is in no acute distress. Communicates well with provider and answers questions appropriately. MOUTH/OROPHARYNX - Without perioral cyanosis. Buccal mucosa pink and moist. LUNGS - Chest wall symmetric without accessory muscle use, intercostals retractions, or central cyanosis. Normal vesicular breath sounds CTA B/L. No wheezes, rales, or rhonchi appreciated. CARDIAC - RRR with S1/S2. No murmur, rubs, or gallops appreciated. ABDOMEN - Abdominal contour without pulsations or visible masses. Tenderness to palpation appreciated. PSYCH - A&Ox3 and cooperates fully with examiner. Pt is very pleasant and interacts well with examiner. Results & Data ([facility]) Vital Signs (Past 12 Hours) Vital Signs Temp Pulse Resp BP Pulse Ox O2 Del Method 10/29/22 07:54 36.7 C 78 14 150/80 H 95 Room Air PG Care Time/CCT Total # of Minutes Spent Total Time Spent with Patient: Total time spent is greater than 50% in coordination of care (as documented) at patient's floor/unit and/or counseling patient: Coding Level of Care Code 95258 SUB INP/OBS CARE 3/50MIN Diagnoses Dysphagia R13.10 CAD (coronary artery disease) I25.119 Associated angina: with unspecified angina Coronary Disease-Associated Artery/Lesion type: unspecified vessel or lesion type [place] vs. transplanted heart: [place] heart Ischemic cardiomyopathy I25.5 HTN (hypertension) I10 Hypertension type: essential hypertension Gout M10.9 Hemiplegic migraine G43.409 Chronic obstructive pulmonary disease J44.9 Cancer of lung C34.90 Laryngopharyngeal reflux K21.9 Time Spent (min) 32
[2022-10-29] MEDS: FAMOTIDINE 20 MG in SYRINGE 3 ML IV SCH ×2 (09:49→21:06)
[2022-10-29] MEDS: UMECLIDINIUM BROMIDE 62.5MCG/BLISTER 7 PUFFS/INHALER INH SCH (09:49)
[2022-10-29] MEDS: carvediloL 3.125 MG TAB PO SCH ×2 (09:50→21:06)
[2022-10-29] MEDS: allopurinoL 100 MG TAB PO SCH (09:50)
[2022-10-29] MEDS: ASPIRIN 81 MG ECTAB PO SCH (09:50)
[2022-10-29] MEDS: VERAPAMIL HCL 120 MG TABCR PO SCH (09:50)
[2022-10-29] MEDS: VALSARTAN 80 MG TAB PO SCH (09:50)
[2022-10-29] MEDS: PANTOprazole 40 MG in SYRINGE 0 ML IV SCH (10:02)
[2022-10-30] MEDS: LACTATED RINGER'S 1,000 ML IV SCH (01:02)
[2022-10-30 06:10] LABS: Basophils # (auto) 0.04 K/uL (0-0.2); Basophils % (auto) 0.9 %; Eosinophils # (auto) 0.12 K/uL (0-0.50); Eosinophils % (auto) 2.6 %; Hematocrit (blood only) 37.1 % (40.1-51.0); Hemoglobin 12.5 g/dl (14.0-18.0); Immature Granulocytes # (auto) 0.01 K/uL (0.00-0.02); Immature Granulocytes % (auto) 0.2 %; Lymphocytes # (auto) 1.04 K/uL (1.2-3.4); Mean Corpuscular Hemoglobin 29.1 pg (25.0-34.0); Mean Corpuscular Hgb Conc 33.7 g/dL (32.0-36.0); Mean Corpuscular Volume 86.3 fL (80.0-100.0); Mean Platelet Volume 11.9 fL (9.4-12.4); Monocytes # (auto) 0.42 K/uL (0.24-0.82); Monocytes % (auto) 9.3 %; Platelet Count 142 K/uL (130-400); RDW Coefficient of Variation 14.7 % (11.5-14.5); RDW Standard Deviation 46.4 fL (36.4-46.3); White Blood Count 4.53 K/ul (4.8-10.8)
[2022-10-30 06:35] LABS: Calcium 8.2 mg/dl (8.5-10.1); Potassium 3.8 mmol/L (3.5-5.1)
[2022-10-30 06:41] LABS: BUN Creatinine Ratio 12.2 (10-20); Creatinine Clr Calc Pharmacy 50.6 ml/min; Est GFR (African American) 66.4 ml/min; Est GFR (Non-African American) 57.3 ml/min
[2022-10-30] MEDS: VALSARTAN 80 MG TAB PO SCH (07:56)
[2022-10-30] MEDS: carvediloL 3.125 MG TAB PO SCH (07:56)
[2022-10-30] MEDS: allopurinoL 100 MG TAB PO SCH (07:56)
[2022-10-30] MEDS: VERAPAMIL HCL 120 MG TABCR PO SCH (07:56)
[2022-10-30] MEDS: UMECLIDINIUM BROMIDE 62.5MCG/BLISTER 7 PUFFS/INHALER INH SCH (08:40)
[2022-10-30] MEDS: FAMOTIDINE 20 MG in SYRINGE 3 ML IV SCH (08:43)
[2022-10-30] MEDS ORDERED: PROPOFOL IV EMULSION 10 MG/ML 20 ML VIAL IV ONE (09:38)
[2022-10-30] MEDS ORDERED: LIDOCAINE 2% MPF LOCAL 5 ML VIAL INFIL ONE (09:38)
--- NOTE | 2022-10-30 09:49 | History & Physical Report ---
Date of Service October 30, 2022 Assessment & Plan (1) Dysphagia: Plan: EGD today Admission and Anticipated Discharge Date Admission Date: October 27, 2022 History of Present Illness Chief Complaint: dysphagia Primary Care Provider: Shan Torres DO dysphagia Allergies Allergy/AdvReac Type Severity Reaction Status Date / Time Cephalosporins Allergy Intermediate Rash Verified 10/30/22 09:43 fluticasone Allergy Intermediate Rash Verified 10/30/22 09:43 Iodinated Contrast Media Allergy Intermediate Hives Verified 10/30/22 09:43 Penicillins Allergy Intermediate Rash Verified 10/30/22 09:43 salmeterol Allergy Mild Rash Verified 10/30/22 09:43 cephalexin [From Keflex] Allergy Unknown Hives Verified 10/30/22 09:43 pravastatin Allergy Unknown myalgias Verified 10/30/22 09:43 atorvastatin AdvReac Mild MUSCLE Verified 10/30/22 09:43 ACHES fluvastatin AdvReac Mild MUSCLE Verified 10/30/22 09:43 ACHES lisinopril AdvReac Mild Cough Verified 10/30/22 09:43 rosuvastatin AdvReac Mild MUSCLE Verified 10/30/22 09:43 ACHES Home Medications Medication Instructions Recorded Confirmed Type cholecalciferol (vitamin D3) 25 2,000 unit PO HS 06/25/18 10/27/22 History mcg (1,000 unit) capsule (Vitamin D3) zinc acetate 50 mg (zinc) capsule 50 mg PO QAM 03/23/20 10/27/22 History (Galzin) albuterol sulfate 90 mcg/actuation 2 puffs inhalation QID PRN Wheezing 06/12/20 10/27/22 History aerosol inhaler tiotropium bromide 2.5 2 inh inhalation QAM PRN sob 12/05/21 10/27/22 History mcg/actuation mist for inhalation (Spiriva Respimat) carvedilol 3.125 mg tablet (Coreg) 3.125 mg PO BID #180 tabs 12/16/21 10/27/22 Rx nitroglycerin 0.4 mg sublingual 0.4 mg sublingual Q5M PRN chest 12/23/21 10/27/22 Rx tablet pain #30 tabs aspirin 81 mg tablet,delayed 81 mg PO QAM 01/29/22 10/27/22 History release (Adult Aspirin Regimen) ezetimibe 10 mg tablet (Zetia) 10 mg PO QAM #90 tabs 04/09/22 10/27/22 Rx valsartan 40 mg tablet 20 mg PO QAM #45 tabs 04/11/22 10/27/22 Rx famotidine 40 mg tablet 40 mg PO QAM #30 tabs 04/23/22 10/27/22 Rx pantoprazole 40 mg tablet,delayed 40 mg PO HS #30 tabs 05/19/22 10/27/22 Rx release verapamil 120 mg 24 hr 120 mg PO QAM 90 days #90 caps 07/30/22 10/27/22 Rx capsule,extended release allopurinol 100 mg tablet 100 mg PO QAM #90 tabs 08/12/22 10/27/22 Rx ticagrelor 90 mg tablet (Brilinta) 90 mg PO BID #180 tabs 09/12/22 10/27/22 Rx Past Med/Surg History Medical History Asthma Breathing stable CAD (coronary artery disease) S/p stents x4 (2015) to LAD S/p stent (2018) to D1 Known occluded distal LAD per cardio records On Brillinta Cancer of lung 1998 s/p lobectomy/chemo/xrt Cerebral aneurysm Followed by Neuro Head MRA 09/26/21= "Unchanged appearance of 2 small carotid artery aneurysms as detailed above. 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 No recent issues Hx pulmonary embolism Post-op (provoked in the setting of GI surgery) (01/2021) treated with Xarelto (Xarelto later discontinued after GI bleed) (no current problems) Hypertension Ischemic cardiomyopathy EF 35-40% per 12/2021 ECHO Follow[facility] with [facility] cardiology Laryngopharyngeal reflux Well controlled and stable Multifocal atrial tachycardia Neural hearing loss Pancreatic cyst Stable per 01/31/21 Abdomen/Pelvis CT scan Paroxysmal atrial tachycardia Sensorineural hearing loss of both ears Solitary pulmonary nodule 12/23/21 CT findings "stable" per pulmonary workload note 12/26/21 STEMI (ST elevation myocardial infarction) 2015, 2018 Tinnitus of right ear Surgical History History of arthroplasty of left shoulder History of cardiac catheterization S/p stents x4 (2016) S/p stent (2019) to D1 Known occluded distal LAD per cardio records History of colonoscopy History of excision of mass Neck (2018) Hx of cataract surgery R/L S/P appendectomy S/P excision of lipoma S/P laparoscopic cholecystectomy Lap samy (01/28/21): Grade view 1, MAC#4, ETT 7.5 at [facility] S/P lobectomy of lung Left S/P total knee arthroplasty Left Stented coronary artery Family History Brother Cancer Hypertension Sister Cancer Hypertension Diabetes Mother Hypertension Diabetes Unknown Coronary heart disease Father Coronary heart disease Daughter Breast cancer Other Lung cancer Myocardial infarction Denies family history of Ovarian cancer Prostate cancer Hearing loss No family history of adverse response to anesthesia No family history of bleeding disorder Heart disease Allergies Colorectal cancer Stroke Asthma Social History Smoking Status: Former smoker Tobacco Type: Cigarettes Age Started Using Tobacco: 23; Age Quit Using Tobacco: 51; packs per day: 0.5; Second Hand Exposure: No; Do You Dip or Chew Tobacco: No; Tobacco Cessation Education Requested by Patient: No Hx Alcohol Use: No Hx Substance Use: No Preferred Language: Maltese Communication Ability: Effective Visual Impairment: Limited 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: Use of Hearing Aid Toll Bridge Attendant Required: No Beliefs That Will Affect Care: None marital status: Current Living Situation: Spouse current occupational status: retired current occupation: retired How many Children do You have: 1 Other Information That Helps Us Care for You: No Feels Safe at Home: Yes Safety Concerns: Feels Safe At This Time Childhood Exposure to Second-Hand Smoke: Yes caffeine: Yes (2 cups of coffee daily ) Dental Care, Regularly: No Physical Activity Frequency: Does not Exercise Seatbelt Use: always Sunscreen Use: Yes (sometimes) Do you think of yourself as: straight/heterosexual Assistive Devices: Cane and Walker Results & Data ([facility]) Vital Signs (Past 12 Hours) Vital Signs Temp Pulse Pulse Resp BP Pulse Ox O2 Del Method 10/30/22 09:42 Room Air 10/30/22 09:43 36.3 C L 82 82 18 168/91 H 94 Room Air 10/30/22 07:36 36.3 C L 79 16 155/78 H 95 Room Air Code Status & VTE Plan VTE Prophylaxis Plan VTE Prophylaxis will be ordered: Yes
--- NOTE | 2022-10-30 09:53 | Anesthesiology Consultation ---
Date of Service October 30, 2022 Assessment & Plan Chart Review Chart Review: Acceptable Risk for Surgery and Patient NOT seen in Pre Admission Testing Consults Requested none ASA ASA3 Proposed Anesthesia Anesthesia Type: MAC Risk / Benefits Reviewed With: PT / POA / Parent / Guardian, Accepts Plan and Informed Consent Obtained History Surgery Operation Date: 10/30/22 16:00 Proposed Procedures p Esophagogastroduodenoscopy Dr Shoemaker - Cortney Shoemaker, DO Height/Weight Height: 6 ft Weight: 78.6 kg Allergies Allergy/AdvReac Type Severity Reaction Status Date / Time Cephalosporins Allergy Intermediate Rash Verified 10/30/22 09:43 fluticasone Allergy Intermediate Rash Verified 10/30/22 09:43 Iodinated Contrast Media Allergy Intermediate Hives Verified 10/30/22 09:43 Penicillins Allergy Intermediate Rash Verified 10/30/22 09:43 salmeterol Allergy Mild Rash Verified 10/30/22 09:43 cephalexin [From Keflex] Allergy Unknown Hives Verified 10/30/22 09:43 pravastatin Allergy Unknown myalgias Verified 10/30/22 09:43 atorvastatin AdvReac Mild MUSCLE Verified 10/30/22 09:43 ACHES fluvastatin AdvReac Mild MUSCLE Verified 10/30/22 09:43 ACHES lisinopril AdvReac Mild Cough Verified 10/30/22 09:43 rosuvastatin AdvReac Mild MUSCLE Verified 10/30/22 09:43 ACHES Medications Home Medications Medication Instructions Recorded Confirmed Last Taken cholecalciferol (vitamin D3) 25 2,000 unit PO HS 06/25/18 10/27/22 02/24/22 21:00 mcg (1,000 unit) capsule (Vitamin D3) zinc acetate 50 mg (zinc) capsule 50 mg PO QAM 03/23/20 10/27/22 02/24/22 21:00 (Galzin) albuterol sulfate 90 mcg/actuation 2 puffs inhalation QID PRN Wheezing 06/12/20 10/27/22 02/25/22 07:30 aerosol inhaler tiotropium bromide 2.5 2 inh inhalation QAM PRN sob 12/05/21 10/27/22 Unknown mcg/actuation mist for inhalation (Spiriva Respimat) carvedilol 3.125 mg tablet (Coreg) 3.125 mg PO BID #180 tabs 12/16/21 10/27/22 02/25/22 07:30 nitroglycerin 0.4 mg sublingual 0.4 mg sublingual Q5M PRN chest 12/23/21 10/27/22 Unknown tablet pain #30 tabs aspirin 81 mg tablet,delayed 81 mg PO QAM 01/29/22 10/27/22 02/25/22 07:30 release (Adult Aspirin Regimen) ezetimibe 10 mg tablet (Zetia) 10 mg PO QAM #90 tabs 04/09/22 10/27/22 Unknown valsartan 40 mg tablet 20 mg PO QAM #45 tabs 04/11/22 10/27/22 Unknown famotidine 40 mg tablet 40 mg PO QAM #30 tabs 04/23/22 10/27/22 Unknown pantoprazole 40 mg tablet,delayed 40 mg PO HS #30 tabs 05/19/22 10/27/22 Unknown release verapamil 120 mg 24 hr 120 mg PO QAM 90 days #90 caps 07/30/22 10/27/22 Unknown capsule,extended release allopurinol 100 mg tablet 100 mg PO QAM #90 tabs 08/12/22 10/27/22 Unknown ticagrelor 90 mg tablet (Brilinta) 90 mg PO BID #180 tabs 09/12/22 10/27/22 Unknown Active Medications Generic Name Dose Route Start Last Admin Trade Name Freq PRN Reason Stop Dose Admin Allopurinol 100 mg 10/28/22 09:00 10/30/22 07:56 Allopurinol 100 Mg Tab PO 11/27/22 08:59 Not Given QAM DALLIN Aspirin 81 mg 10/28/22 09:00 10/29/22 09:50 Aspirin 81 Mg Ectab PO 11/27/22 08:59 81 mg QAM DALLIN Administration Carvedilol 3.125 mg 10/27/22 21:17 10/30/22 07:56 Carvedilol 3.125 Mg Tab PO 11/26/22 21:16 Not Given BID DALLIN Lactated Ringer's 1,000 mls @ 80 mls/hr 10/27/22 21:17 10/30/22 01:02 Lr IV 11/26/22 21:16 80 mls/hr .[id number] DALLIN Administration Famotidine 20 mg/ Syringe 5 mls @ 2.5 mls/min 10/27/22 23:30 10/30/22 08:43 IV 11/26/22 23:29 2.5 mls/min BID DALLIN Administration Pantoprazole Sodium 40 mg/ 10 mls @ 5 mls/min 10/28/22 11:00 10/29/22 10:02 Syringe IV 11/27/22 10:59 5 mls/min DAILY@1100 DALLIN Administration Loperamide HCl 2 mg 10/29/22 09:26 10/29/22 10:02 Loperamide Liquid 120 Ml Bottle PO 11/28/22 09:25 2 mg PRN PRN Administration Diarrhea Umeclidinium [place] 1 puffs 10/28/22 09:00 10/30/22 08:40 Umeclidinium [place] 62.5mcg/Blister 7 Puffs/Inhaler INH 11/27/22 08:59 1 puffs DAILY DALLIN Administration Protocol Valsartan 20 mg 10/28/22 09:00 10/30/22 07:56 Valsartan 80 Mg Tab PO 11/27/22 08:59 Not Given QAM DALLIN Verapamil HCl 120 mg 10/28/22 09:00 10/30/22 07:56 Verapamil Hcl 120 Mg Tabcr PO 11/27/22 08:59 Not Given QAM DALLIN NPO Date Last Intake of Fluids: 10/29/22 Time Last Intake of Fluids: 21:00 Date Last Intake of Solids: 10/28/22 Time Last Intake of Solids: 17:00 Past Medical History Medical History Asthma Breathing stable CAD (coronary artery disease) S/p stents x4 (2015) to LAD S/p stent (2018) to D1 Known occluded distal LAD per cardio records On Brillinta Cancer of lung 1998 s/p lobectomy/chemo/xrt Cerebral aneurysm Followed by Neuro Head MRA 09/26/21= "Unchanged appearance of 2 small carotid artery aneurysms as detailed above. 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 No recent issues Hx pulmonary embolism Post-op (provoked in the setting of GI surgery) (01/2021) treated with Xarelto (Xarelto later discontinued after GI bleed) (no current problems) Hypertension Ischemic cardiomyopathy EF 35-40% per 12/2021 ECHO Follows with [facility] cardiology Laryngopharyngeal reflux Well controlled and stable Multifocal atrial tachycardia Neural hearing loss Pancreatic cyst Stable per 01/31/21 Abdomen/Pelvis CT scan Paroxysmal atrial tachycardia Sensorineural hearing loss of both ears Solitary pulmonary nodule 12/23/21 CT findings "stable" per pulmonary workload note 12/26/21 STEMI (ST elevation myocardial infarction) 2015, 2018 Tinnitus of right ear Exercise / Class Metabolic Activity II 4-5 Yardwork/Stairs/Walk up hill Past Family History Family History Brother Cancer Hypertension Sister Cancer Hypertension Diabetes Mother Hypertension Diabetes Unknown Coronary heart disease Father Coronary heart disease Daughter Breast cancer Other Lung cancer Myocardial infarction Denies family history of Ovarian cancer Prostate cancer Hearing loss No family history of adverse response to anesthesia No family history of bleeding disorder Heart disease Allergies Colorectal cancer Stroke Asthma Past Surgical History Surgical History History of arthroplasty of left shoulder History of cardiac catheterization S/p stents x4 (2015) S/p stent (2019) to D1 Known occluded distal LAD per cardio records History of colonoscopy History of excision of mass Neck (2017) Hx of cataract surgery R/L S/P appendectomy S/P excision of lipoma S/P laparoscopic cholecystectomy Lap samy (01/28/21): Grade view 1, MAC#4, ETT 7.5 at [facility] S/P lobectomy of lung Left S/P total knee arthroplasty Left Stented coronary artery Past Anesthesia History No Hx of Anesthesia Complications and No Family Hx of Anesthesia Complications History of PONV No Hx of PONV and No Hx of Motion Sickness Social History Smoking Status: Former smoker tobacco type: cigarettes Do You Dip or Chew Tobacco: No Hx Alcohol Use: No Hx Substance Use: No substance use type: does not use Review of Systems ROS Unobtainable: All systems reviewed & are unremarkable except as noted in HPI & below Constitutional: as per Subjective / HPI Eyes: as per Subjective / HPI Ear, Nose, Mouth, Throat: as per Subjective / HPI Cardiovascular: as per Subjective / HPI Gastrointestinal: + dysphagia Genitourinary (Male): + as per Subjective / HPI Musculoskeletal: as per Subjective / HPI Integumentary: as per Subjective / HPI Neurologic: as per Subjective / HPI Psychiatric: as per Subjective / HPI Endocrine: as per Subjective / HPI Hematologic / Lymphatic: as per Subjective / HPI Allergy / Immunological: as per Subjective / HPI Physical Exam Vital Signs Last Vital Signs Temp 36.3 C L 10/30/22 09:43 Pulse 82 10/30/22 09:43 Resp 18 10/30/22 09:43 BP 168/91 H 10/30/22 09:43 Pulse Ox 94 10/30/22 09:43 O2 Del Method 10/30/22 09:43 O2 Flow Rate 0 10/27/22 14:44 Constitutional WD/WN, vitals as above Eyes PERRL, conjunctivae normal, anicteric sclerae ENMT external ear and nose normal, oropharynx normal Mouth: + edentulous; no dentition abnormality Thyromental Distance: > or= 3.5 Finger Breadths Mallampati Class: II Neck trachea midline, no thyromegaly Respiratory normal respiratory effort, lungs clear to auscultation Cardiovascular RRR, no murmur, no edema Musculoskeletal Head/Neck/Chest: normocephalic and head atraumatic Spine: normal cervical ROM and no pain with cervical ROM Extremities: extremities normal to inspection and strength 5/5 throughout; full ROM of extremities Skin no rashes, warm and dry Neurologic moves all extremities Psychiatric A+Ox3, euthymic affect Testing Laboratory Results 10/30/22 05:39 10/30/22 05:39 PT 11.2 Seconds (9.0-12.0) 10/27/22 14:40 INR 1.1 (0.9-1.1) 10/27/22 14:40
--- NOTE | 2022-10-30 10:09 | GI REPORT ---
Patient Name: Agnieszka Singleton Procedure Date: 10/30/2022 9:55 AM Date of : 1935 Admit Type: Inpatient Age: 87 Gender: Male Attending MD: Cortney Sohemaker DO, Procedure: Upper GI endoscopy Providers: Cortney Shoemaker DO Referring MD: Shan Torres Indications: Dysphagia Medicines: Propofol per Anesthesia Complications: No immediate complications. Estimated blood loss: None. Estimated Blood Loss: Estimated blood loss: none. Procedure: Pre-Anesthesia Assessment: - Prior to the procedure, a History and Physical was performed, and patient medications, allergies and sensitivities were reviewed. The patient's tolerance of previous anesthesia was reviewed. - The risks and benefits of the procedure and the sedation options and risks were discussed with the patient. All questions were answered and informed consent was obtained. - Patient identification and proposed procedure were verified prior to the procedure by the physician and the nurse. The procedure was verified in the pre-procedure area in the procedure room. - Mental Status Examination: alert and oriented. Airway Examination: normal oropharyngeal airway and neck mobility. Respiratory Examination: clear to auscultation. CV Examination: normal. Abdominal Examination: bowel sounds present, abdomen soft and non-tender, no masses or organomegaly noted. - ASA Grade Assessment: III - A patient with severe systemic disease. After obtaining informed consent, the endoscope was passed under direct vision. Throughout the procedure, the patient's blood pressure, pulse, and oxygen saturations were monitored continuously. The Endoscope was introduced through the mouth, and advanced to the second part of duodenum. The upper GI endoscopy was accomplished without difficulty. The patient tolerated the procedure well. Findings: The examined esophagus was normal. A guidewire was placed and the scope was withdrawn. Dilation was performed with a Savary dilator with no resistance at 54 Fr. The dilation site was examined and showed no bleeding, mucosal tear or perforation. Estimated blood loss: none. The stomach was normal. The examined duodenum was normal. Impression: - Normal esophagus. Dilated. - Normal stomach. - Normal examined duodenum. - No specimens collected. Recommendation: - Follow an antireflux regimen. - Use a proton pump inhibitor PO daily. - Return patient to hospital [facility] for possible discharge same day. - Advance diet. - Consider outpatient video swallow evaluation Cortney T. Cruz Shoemaker DO 10/30/2022 10:08:59 AM This report has been signed electronically. Note Initiated On: 10/30/2022 9:55 AM Number of Addenda: 0 I attest to the content of the Intraoperative Record and orders documented therein, exceptions below {[id number]}
[2022-10-30] MEDS: PANTOprazole 40 MG in SYRINGE 0 ML IV SCH (11:33)
--- NOTE | 2022-10-30 12:55 | Discharge Summary ---
Date of Service October 30, 2022 Admission HPI Per Admitting Provider dysphagia Admission Exam (Per Admitting) Constitutional WD/WN, vitals as above Eyes PERRL, conjunctivae normal, anicteric sclerae + anicteric sclerae; normal pupil size ENMT external ear and nose normal, oropharynx normal Mouth: + edentulous; no dentition abnormality Mallampati Class: II Neck trachea midline, no thyromegaly Respiratory normal respiratory effort, lungs clear to auscultation Cardiovascular RRR, no murmur, no edema Rate/Rhythm: regular rate and regular rhythm Heart Sounds: normal S1 and normal, physiologic split S2 Extremities: normal capillary refill; no calf tenderness and no pedal edema Gastrointestinal (Abdomen) normal bowel sounds, soft, nontender, no hepatosplenomegaly Musculoskeletal Head/Neck/Chest: normocephalic and head atraumatic Spine: normal cervical ROM and no pain with cervical ROM Extremities: extremities normal to inspection and strength 5/5 throughout; full ROM of extremities Skin no rashes, warm and dry Neurologic moves all extremities and awake; not confused Psychiatric A+Ox3, euthymic affect Discharge Data Consultations 10/27/22 18:37 ED Decision to Admit Stat 10/27/22 21:17 Consult Gastroenterology Routine Procedures Performed Operation Date: 10/30/22 16:00 Actual Procedures p EGD Dilatation - Cortney Shoemaker, DO Hospital Course (1) Dysphagia: * Slow progressively worsening over months. * EGD today w/ dilation. * Will progress diet. If he tolerates well, can d/c to home today. * Start PPI per GI * Can restart ASA/Brilinta today. (2) CAD (coronary artery disease): * Initial STEMI in June 2015. Most recent STEMI in September 2019 with occlusion just proximal to prior LAD stents treated with balloon angioplasty to LAD into first diagonal stents. * Stent thrombosis previously occurred while on clopidogrel. * Continue carvedilol and valsartan * Intolerant to multiple statins. Continue Zetia. (3) Ischemic cardiomyopathy: * Continue carvedilol (4) HTN (hypertension): * Continue carvedilol 3.125 mg p.o. twice daily, valsartan 20 mg p.o. daily and verapamil 120 mg p.o. daily (5) Gout: * Continue allopurinol 100 mg p.o. daily (6) Hemiplegic migraine: * Continue verapamil (7) Chronic obstructive pulmonary disease: * Continue Spiriva. Reportedly take this as needed at home. (8) Cancer of lung: * Previous history in 1998 s/p lobectomy/chemo/xrt (9) Laryngopharyngeal reflux: * Switch famotidine and pantoprazole oral to IV Coding Level of Care Code HOSP INP/OBS DISCH >30 MIN Diagnoses Dysphagia R13.10 CAD (coronary artery disease) I25.119 Associated angina: with unspecified angina Coronary Disease-Associated Artery/Lesion type: unspecified vessel or lesion type [place] vs. transplanted heart: [place] heart Ischemic cardiomyopathy I25.5 HTN (hypertension) I10 Hypertension type: essential hypertension Gout M10.9 Hemiplegic migraine G43.409 Chronic obstructive pulmonary disease J44.9 Cancer of lung C34.90 Laryngopharyngeal reflux K21.9 Time Spent (min) 35
--- NOTE | 2022-10-30 13:06 | Anesthesiology Progress Note ---
Date of Service October 30, 2022 Anesthesia Post Procedure Vital Signs Vital Signs: Temp Pulse Pulse Resp BP BP Pulse Ox 10/30/22 10:36 76 20 148/81 H 94 10/30/22 10:22 76 18 144/87 H 95 10/30/22 10:08 81 16 133/74 94 10/30/22 09:42 10/30/22 09:43 36.3 C L 82 82 18 168/91 H 94 10/30/22 07:36 36.3 C L 79 16 155/78 H 95 10/29/22 21:17 10/29/22 21:05 36.4 C L 79 16 149/82 H 96 10/29/22 15:25 36.3 C L 71 16 133/68 97 O2 Del Method 10/30/22 10:36 Room Air 10/30/22 10:22 Room Air 10/30/22 10:08 Room Air 10/30/22 09:42 Room Air 10/30/22 09:43 Room Air 10/30/22 07:36 Room Air 10/29/22 21:17 Room Air 10/29/22 21:05 Room Air 10/29/22 15:25 Room Air Transfer of Care Handoff Completed per policy Notes Mental Status: alert / awake / arousable and participated in evaluation Patient Amnestic to Procedure: Yes Nausea / Vomiting: adequately controlled Pain: adequately controlled Airway Patency, RR, SpO2: stable & adequate BP & HR: stable & adequate Hydration State: stable & adequate Anesthetic Complications: no major complications apparent and Pt Satisfied with anesthetic care
[2022-10-30] MEDS ORDERED: TICAGRELOR 90 MG TAB PO SCH (21:00)
== END 2022-10-30 14:57 | disposition home or self-care (01) | DRG 392 ==
LOC: ED 14:24 → SUATTDRO 18:30 → EDINP 18:30 → 3W 21:14

== ENCOUNTER 2022-11-26 12:05 | Observation (INO) ==
--- NOTE | 2022-11-26 12:19 | Emergency Department Note ---
Impression & Plan Chest pain ADMIT ED Provider Note HPI: The patient is an 87-year-old male with history of coronary artery disease, presents the emergency department with a chief complaint of chest pressure for about the past 2 hours. Patient arrived to the ED via EMS, he was given aspirin and sublingual nitroglycerin prior to arrival and he states this did improve his discomfort. On arrival patient states that he only has mild chest "pressure". Patient arrives hemodynamically stable, saturating well on room air on arrival. ROS: - Per HPI *Outpatient medications and allergy history reviewed. *Pertinent external medical records reviewed. PE: General: Alert HEENT: Normocephalic, trachea midline Eyes: Extraocular eye movement is intact, no scleral erythema Pulmonary: Clear to auscultation bilaterally, no wheezing Cardio: Regular rate and rhythm GI: Abdomen is soft, nontender : No suprapubic tenderness MSK: No evidence of trauma or malformation of the extremities, no edema Skin: No evidence of rash Neuro: Alert, no focal deficits Psychiatric: Cooperative psychologist chief: (As interpreted by myself): - An order was placed for continuous cardiac monitoring - Patient was noted to be in sinus rhythm with a rate of 70 EKG: (As interpreted by myself): Rate: 72 Rhythm: Normal sinus rhythm Intervals: QRS 140 ms, otherwise within normal limits ST changes: No ST elevation Time: 1210 Interventions: -Aspirin and sublingual nitroglycerin per EMS Medical Decision Making: The patient is an 87-year-old gentleman with history of coronary artery disease, status post multiple stents, presents the ED with chest pain. Patient describes this is more of a pressure, EKG initially does not show any ST elevation, troponin is negative. Chest x-ray shows chronic elevation of left hemidiaphragm, otherwise no acute process per my interpretation. On my reassessment patient states that his chest pressure is improved but he feels somewhat lightheaded, I suspect this is because he received nitroglycerin in route via EMS. His symptoms started shortly there afterward. He currently does not have any chest pain. His initial troponin is negative although with his history of coronary artery disease and multiple stents I feel he should be admitted for monitoring and repeat troponin levels. Patient was in agreement. Hospitalist service was therefore consulted in regards to admission. Consultants: On-call hospitalist, Dr. Armstrong Disposition discussion held by myself with: Patient Diagnosis: 1. Acute chest discomfort in the setting of underlying coronary artery disease Disposition: Admission Austin Marie DO Emergency Medicine Past Med/Surg History Medical History (Updated 11/26/22 @ 13:20 by Austin Marie DO) Asthma Breathing stable CAD (coronary artery disease) S/p stents x4 (2015) to LAD S/p stent (2019) to D1 Known occluded distal LAD per cardio records On Brillinta Cancer of lung 1998 s/p lobectomy/chemo/xrt Cerebral aneurysm Followed by Neuro Head MRA 09/26/21= "Unchanged appearance of 2 small carotid artery aneurysms as detailed above. 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 No recent issues Hx pulmonary embolism Post-op (provoked in the setting of GI surgery) (01/2021) treated with Xarelto (Xarelto later discontinued after GI bleed) (no current problems) Hypertension Ischemic cardiomyopathy EF 35-40% per 12/2021 ECHO Follows with [facility] cardiology Laryngopharyngeal reflux Well controlled and stable Multifocal atrial tachycardia Neural hearing loss Pancreatic cyst Stable per 01/31/21 Abdomen/Pelvis CT scan Paroxysmal atrial tachycardia Sensorineural hearing loss of both ears Solitary pulmonary nodule 12/23/21 CT findings "stable" per pulmonary workload note 12/26/21 STEMI (ST elevation myocardial infarction) 2015, 2018 Tinnitus of right ear Surgical History (Updated 11/06/22 @ 11:00 by Annette Esteves) History of arthroplasty of left shoulder History of cardiac catheterization S/p stents x4 (2015) S/p stent (2019) to D1 Known occluded distal LAD per cardio records History of colonoscopy History of esophagogastroduodenoscopy (EGD) with dilation of esophagus - 10/30/22 History of excision of mass Neck (2017) Hx of cataract surgery R/L S/P appendectomy S/P excision of lipoma S/P laparoscopic cholecystectomy Lap samy (01/28/21): Grade view 1, MAC#4, ETT 7.5 at [facility] S/P lobectomy of lung Left S/P total knee arthroplasty Left Stented coronary artery Family History Brother Cancer Hypertension Sister Cancer Hypertension Diabetes Mother Hypertension Diabetes Unknown Coronary heart disease Father Coronary heart disease Daughter Breast cancer Other Lung cancer Myocardial infarction Denies family history of Ovarian cancer Prostate cancer Hearing loss No family history of adverse response to anesthesia No family history of bleeding disorder Heart disease Allergies Colorectal cancer Stroke Asthma Social History Smoking Status: Former smoker Tobacco Type: Cigarettes Age Started Using Tobacco: 23; Age Quit Using Tobacco: 51; packs per day: 0.5; Second Hand Exposure: No; Hx Alcohol Use: No Hx Substance Use: No Preferred Language: [place] Communication Ability: Effective Visual Impairment: Limited 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: Use of Hearing Aid 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 Required: No Beliefs That Will Affect Care: None marital status: Current Living Situation: Spouse current occupational status: retired current occupation: retired How many Children do You have: 1 Feels Safe at Home: Yes Childhood Exposure to Second-Hand Smoke: Yes caffeine: Yes (2 cups of coffee daily ) Dental Care, Regularly: No Physical Activity Frequency: Does not Exercise Seatbelt Use: always Sunscreen Use: Yes (sometimes) Do you think of yourself as: straight/heterosexual Assistive Devices: Cane and Walker Allergies Allergies Allergy/AdvReac Type Severity Reaction Status Date / Time Cephalosporins Allergy Intermediate Rash Verified 11/20/22 11:27 fluticasone Allergy Intermediate Rash Verified 11/20/22 11:27 Iodinated Contrast Media Allergy Intermediate Hives Verified 11/20/22 11:27 Penicillins Allergy Intermediate Rash Verified 11/20/22 11:27 salmeterol Allergy Mild Rash Verified 11/20/22 11:27 cephalexin [From Keflex] Allergy Unknown Hives Verified 11/20/22 11:27 pravastatin Allergy Unknown myalgias Verified 11/20/22 11:27 atorvastatin AdvReac Mild MUSCLE Verified 11/20/22 11:27 ACHES fluvastatin AdvReac Mild MUSCLE Verified 11/20/22 11:27 ACHES lisinopril AdvReac Mild Cough Verified 11/20/22 11:27 prednisone AdvReac Mild Unknown Verified 11/20/22 11:27 rosuvastatin AdvReac Mild MUSCLE Verified 11/20/22 11:27 ACHES Home Meds Home Medications Medication Instructions Recorded Confirmed cholecalciferol (vitamin D3) 25 2,000 unit PO HS 06/25/18 11/26/22 mcg (1,000 unit) capsule (Vitamin D3) zinc acetate 50 mg (zinc) capsule 50 mg PO QAM 03/23/20 11/26/22 (Galzin) albuterol sulfate 90 mcg/actuation 2 puffs inhalation QID PRN Wheezing 06/12/20 11/26/22 aerosol inhaler tiotropium bromide 2.5 2 inh inhalation QAM PRN sob 12/05/21 11/26/22 mcg/actuation mist for inhalation (Spiriva Respimat) aspirin 81 mg tablet,delayed 81 mg PO QAM 01/29/22 11/26/22 release (Adult Aspirin Regimen) Previous Rx's Medication Instructions Recorded carvedilol 3.125 mg tablet (Coreg) 3.125 mg PO BID #180 tabs 12/16/21 ezetimibe 10 mg tablet (Zetia) 10 mg PO QAM #90 tabs 04/09/22 valsartan 40 mg tablet 20 mg PO QAM #45 tabs 04/11/22 verapamil 120 mg 24 hr 120 mg PO QAM 90 days #90 caps 07/30/22 capsule,extended release allopurinol 100 mg tablet 100 mg PO QAM #90 tabs 08/12/22 ticagrelor 90 mg tablet (Brilinta) 90 mg PO BID #180 tabs 09/12/22 pantoprazole 40 mg tablet,delayed 40 mg PO DAILY 4 weeks #28 tabs 10/30/22 release (Protonix) levofloxacin 500 mg tablet 500 mg PO Q24H 10 days #10 tabs 11/17/22 nitroglycerin 0.4 mg sublingual 0.4 mg sublingual Q5M PRN chest 11/20/22 tablet pain #30 tabs molnupiravir 200 mg capsule (EUA) 800 mg PO Q12H 5 days #40 caps 11/24/22 Results & Data (ED) Vital Signs Vital Signs - 24 hr 11/26/22 12:10 11/26/22 12:22 Temperature 36.8 C Temperature Source Temporal Artery Scan Pulse Rate 75 73 Respiratory Rate 18 Respiratory Effort / Characteristics Non-Labored Spontaneous Respiratory Depth Normal Respiratory Pattern Regular Blood Pressure 114/64 Blood Pressure Mean 80 Blood Pressure Position Sitting Pulse Oximetry 97 Oxygen Delivery Method Room Air Sepsis Recent Fever Within 48 Hours No Sepsis New/Unexplained Change in Mental Status N/A Sepsis Action Taken by Nursing No Action Required Laboratory Data 11/26/22 12:30 11/26/22 12:30 Lab Results 11/26/22 11/26/22 Range/Units 12:30 12:30 WBC 8.03 (4.8-10.8) K/ul RBC 4.59 L (4.70-6.10) M/uL Hgb 12.9 L (14.0-18.0) g/dl Hct 38.9 L (42.0-52.0) % MCV 84.7 (80.0-100.0) fL MCH 28.1 (25.0-34.0) pg MCHC 33.2 (32.0-36.0) g/dL RDW Std Deviation 46.2 (36.4-46.3) fL RDW Coeff of Falguni 15.1 H (11.5-14.5) % Plt Count 191 (130-400) K/uL MPV 11.5 (9.4-12.4) fL Immature Gran % (Auto) 1.2 % Neut % (Auto) 70.1 % Lymph % (Auto) 15.7 % [place] % (Auto) 10.7 % Eos % (Auto) 1.6 % Baso % (Auto) 0.7 % Neut # (Auto) 5.62 (1.40-6.50) K/uL Lymph # (Auto) 1.26 (1.2-3.4) K/uL [place] # (Auto) 0.86 H (0.11-0.59) K/uL Eos # (Auto) 0.13 (0-0.50) K/uL Baso # (Auto) 0.06 (0-0.2) K/uL Immature Gran # (Auto) 0.10 (0.01-0.20) K/uL Sodium 136 (136-145) mmol/L Potassium 4.0 (3.5-5.1) mmol/L Chloride 103 (98-107) mmol/L Carbon Dioxide 31 (21-32) mmol/L Anion Gap 2 L (3-11) BUN 20 (6-23) mg/dl Creatinine 1.18 (0.6-1.4) mg/dl Est Cr Clr Drug Dosing 48.7 ml/min Est GFR ( Amer) 64.4 ml/min Est GFR (Non-Af Amer) 55.5 ml/min BUN/Creatinine Ratio 16.9 (10-20) Glucose 88 (70-99(Fasting)) mg/dl Calcium 8.4 L (8.5-10.1) mg/dl Total Bilirubin 1.3 H (0.2-1.0) mg/dl AST 16 (13-39) U/L ALT 19 (7-52) U/L Alkaline Phosphatase 68 (34-104) U/L Troponin I High Sens 17.3 (0-20) pg/ml Total Protein 6.4 (6.0-8.3) gm/dl Albumin 3.4 (3.4-5.0) gm/dl Globulin 3.0 (2.5-4.0) gm/dl Albumin/Globulin Ratio 1.1 (0.9-2) Lipase 91 H (11-82) U/L Discharge Plan Visit Data Chief Complaint: Chest Pain ED Provider: Austin Marie Discharge Problem: Chest pain Forms Stand Alone Forms: [facility] Prescriptions Prescriptions: No Action carvedilol [Coreg] 3.125 mg tablet 3.125 mg PO BID Qty: 180 3RF ezetimibe [Zetia] 10 mg tablet 10 mg PO QAM Qty: 90 3RF valsartan 40 mg tablet 20 mg PO QAM Qty: 45 3RF verapamil 120 mg capsule,ext rel. pellets 24 hr 120 mg PO QAM 90 Days Qty: 90 1RF allopurinol 100 mg tablet 100 mg PO QAM Qty: 90 1RF Brilinta 90 mg tablet 90 mg PO BID Qty: 180 3RF Spiriva Respimat 2.5 mcg/actuation mist 2 inh inhalation QAM PRN (Reason: sob) molnupiravir 200 mg capsule 800 mg PO Q12H 5 Days Qty: 40 0RF Galzin 50 mg (zinc) capsule 50 mg PO QAM albuterol sulfate 90 mcg/actuation HFA aerosol inhaler 2 puffs INH QID PRN (Reason: Wheezing) nitroglycerin 0.4 mg tablet, sublingual 0.4 mg sublingual Q5M PRN (Reason: chest pain) Qty: 30 6RF Rx Instructions: do not exceed 3 doses per episode levofloxacin 500 mg tablet 500 mg PO Q24H 10 Days Qty: 10 0RF cholecalciferol (vitamin D3) [Vitamin D3] 1,000 unit Capsule 2,000 unit PO HS aspirin [Adult Aspirin Regimen] 81 mg tablet,delayed release (DR/EC) 81 mg PO QAM pantoprazole [Protonix] 40 mg tablet,delayed release (DR/EC) 40 mg PO DAILY 28 Days Qty: 28 0RF Referrals Referrals: Ming Gupta DO [Primary Care Provider] - Chest pain Qualifiers: Chest pain type: unspecified Qualified Code(s): R07.9 - Chest pain, unspecified
[2022-11-26 12:53] LABS: Basophils # (auto) 0.06 K/uL (0-0.2); Basophils % (auto) 0.7 %; Eosinophils # (auto) 0.13 K/uL (0-0.50); Eosinophils % (auto) 1.6 %; Hematocrit (blood only) 38.9 % (42.0-52.0); Hemoglobin 12.9 g/dl (14.0-18.0); Immature Granulocytes % (auto) 1.2 %; Lymphocytes # (auto) 1.26 K/uL (1.2-3.4); Lymphocytes % (auto) 15.7 %; Mean Corpuscular Hemoglobin 28.1 pg (25.0-34.0); Mean Corpuscular Hgb Conc 33.2 g/dL (32.0-36.0); Mean Corpuscular Volume 84.7 fL (80.0-100.0); Mean Platelet Volume 11.5 fL (9.4-12.4); Monocytes # (auto) 0.86 K/uL (0.11-0.59); Monocytes % (auto) 10.7 %; Neutrophils # (auto) 5.62 K/uL (1.40-6.50); Neutrophils % (auto) 70.1 %; Platelet Count 191 K/uL (130-400); RDW Coefficient of Variation 15.1 % (11.5-14.5); RDW Standard Deviation 46.2 fL (36.4-46.3); Red Blood Count 4.59 M/uL (4.70-6.10); White Blood Count 8.03 K/ul (4.8-10.8)
[2022-11-26 13:05] LABS: Albumin Globulin Ratio 1.1 (0.9-2); Albumin Level 3.4 gm/dl (3.4-5.0); BUN Creatinine Ratio 16.9 (10-20); Bilirubin,Total 1.3 mg/dl (0.2-1.0); Calcium 8.4 mg/dl (8.5-10.1); Creatinine Clr Calc Pharmacy 48.7 ml/min; Est GFR (African American) 64.4 ml/min; Est GFR (Non-African American) 55.5 ml/min; Total Protein 6.4 gm/dl (6.0-8.3)
[2022-11-26 13:11] LABS: Troponin I High Sensitivity 17.3 pg/ml (0-20)
--- NOTE | 2022-11-26 13:57 | History & Physical Report ---
Date of Service November 26, 2022 Assessment & Plan (1) Chest pain: Plan: Reproducible on exam, occurring for several hours prior to admission with a negative troponin Discussed cardiology, suspect noncardiac in the setting of coughing and COVID Trend troponins, high-sensitivity troponin on admission negative. EKG with no ST segment changes, is with inferior T wave inversions. Nitro as needed Tylenol, lidocaine patch ordered as pain is reproducible on exam suspicious for costochondritis in the setting of 2 to 3 weeks of cough Follow on telemetry Stress test not recommended at this time Defer heparinization Continue DAPT (2) HTN (hypertension): Plan: Continue home medications (3) CAD (coronary artery disease): Plan: Continue DAPT, beta-gene (4) Ischemic cardiomyopathy: Plan: Cardiac eval as noted (5) Cerebral aneurysm: Plan: No acute change (6) Dyslipidemia: Plan: Continue home medicines, patient is statin intolerant (7) CKD (chronic kidney disease) stage 3, GFR 30-59 ml/min: Plan: BMP daily, renally adjust medications as required. Heparin used rather than Lovenox for DVT prophylaxis (8) Laryngopharyngeal reflux: (9) Stented coronary artery: Plan: Continue DAPT (10) Chronic obstructive pulmonary disease: Plan: No wheezing on exam, continue home inhalers (11) COVID: Plan: Positive home test 11/24/2022 No hypoxia Patient has had 2 to 3 weeks of cough, completed a course of Levaquin 3 days ago CXR without acute findings Defer additional antibiotics Supportive care. No steroids indicated at this time. If hypoxic can add dexamethasone. Remdesivir not indicated at this time Plan DVT prophylaxis: Heparin Diet: Heart healthy Disposition: Medical telemetry for chest pain eval CODE STATUS: Full code for "1 round ", patient clarifies he would limit interventions to 10 minutes, but would want full interventions including CPR, intubation up to this point History of Present Illness Primary Care Provider: DO Isidoro Pro Areli is a 87-year-old male with a past medical history of CAD with history of PCI/stenting, ischemic cardiomyopathy, hypertension, CKD, COPD, and cardiac effusion who presents for a chest pain evaluation. On initial assessment patient is with normal high-sensitivity troponin, chronically mildly elevated lipaseEKG with nonspecific T wave changes without ST segment changes. Progress cardiology note review: Multivessel CAD. Ischemic cardiomyopathy with EF 40-45%, apical wall motion abnormality last echo 01/2022, hypertension well- controlled as outpatient, and intermittent paroxysmal atrial tachycardia asymptomatic. Has had a provoked PE in the setting of surgery 2020 without ongoing anticoagulation due to difficulty with epistaxis and provoked onset of his clot. Patient is intolerant of statins, Repatha; is continued on Zetia with LDL at goal at last check. Patient was briefly discussed with interventional cardiology, in the past patient has been extremely symptomatic with coronary events. His chest pain did slightly improve, but remains on initial eval and is slightly reproducible on physical exam. Suspect that this is noncardiac based on patient's prior history and exam,; however is reasonable to trend troponins overnight and follow. Defer stress test at this time. Defer heparinization at this time. Per patient: 930 am 07/21 cherst painpressure on L chest. Improved after nitro at home 1sx an din ER to 12/19. Intermittent sob, none at bedside. No lightheadedness/dizziness. No syncope. No exertional chest pain in the last few weeks Feels similar to pressure with prior stent events N onausea, vomiting, diarrhea, constipation No fevers, chills, sweats Chronic cough with yellow sputum production '2-3 weeks at least'. No night sweats. 2x prednisone courses, 3x abx courses which did not seem to help, finished Levaquin this past Thursday. Home test positive for COVID this past thursday (2 days ago). Medical History: Reviewed Medications: Reviewed Surgical History: Reviewed Allergies: Reviewed Social History: No alcohol use,no tobacco product Code Status: Surrogate DM would be [place]. Full Code, 1 round of CPR/compressions but no longer than 10 minutes total. Allergies Allergy/AdvReac Type Severity Reaction Status Date / Time Cephalosporins Allergy Intermediate Rash Verified 11/20/22 11:27 fluticasone Allergy Intermediate Rash Verified 11/20/22 11:27 Iodinated Contrast Media Allergy Intermediate Hives Verified 11/20/22 11:27 Penicillins Allergy Intermediate Rash Verified 11/20/22 11:27 salmeterol Allergy Mild Rash Verified 11/20/22 11:27 cephalexin [From Keflex] Allergy Unknown Hives Verified 11/20/22 11:27 pravastatin Allergy Unknown myalgias Verified 11/20/22 11:27 atorvastatin AdvReac Mild MUSCLE Verified 11/20/22 11:27 ACHES fluvastatin AdvReac Mild MUSCLE Verified 11/20/22 11:27 ACHES lisinopril AdvReac Mild Cough Verified 11/20/22 11:27 prednisone AdvReac Mild Unknown Verified 11/20/22 11:27 rosuvastatin AdvReac Mild MUSCLE Verified 11/20/22 11:27 ACHES Home Medications Medication Instructions Recorded Confirmed Type cholecalciferol (vitamin D3) 25 2,000 unit PO HS 06/25/18 11/26/22 History mcg (1,000 unit) capsule (Vitamin D3) zinc acetate 50 mg (zinc) capsule 50 mg PO QAM 03/23/20 11/26/22 History (Galzin) albuterol sulfate 90 mcg/actuation 2 puffs inhalation QID PRN Wheezing 06/12/20 11/26/22 History aerosol inhaler tiotropium bromide 2.5 2 inh inhalation QAM PRN sob 12/05/21 11/26/22 History mcg/actuation mist for inhalation (Spiriva Respimat) carvedilol 3.125 mg tablet (Coreg) 3.125 mg PO BID #180 tabs 12/16/21 11/26/22 Rx aspirin 81 mg tablet,delayed 81 mg PO QAM 01/29/22 11/26/22 History release (Adult Aspirin Regimen) ezetimibe 10 mg tablet (Zetia) 10 mg PO QAM #90 tabs 04/09/22 11/26/22 Rx valsartan 40 mg tablet 20 mg PO QAM #45 tabs 04/11/22 11/26/22 Rx verapamil 120 mg 24 hr 120 mg PO QAM 90 days #90 caps 07/30/22 11/26/22 Rx capsule,extended release allopurinol 100 mg tablet 100 mg PO QAM #90 tabs 08/12/22 11/26/22 Rx ticagrelor 90 mg tablet (Brilinta) 90 mg PO BID #180 tabs 09/12/22 11/26/22 Rx pantoprazole 40 mg tablet,delayed 40 mg PO DAILY 4 weeks #28 tabs 10/30/22 11/26/22 Rx release (Protonix) levofloxacin 500 mg tablet 500 mg PO Q24H 10 days #10 tabs 11/17/22 11/26/22 Rx nitroglycerin 0.4 mg sublingual 0.4 mg sublingual Q5M PRN chest 11/20/22 11/26/22 Rx tablet pain #30 tabs molnupiravir 200 mg capsule (EUA) 800 mg PO Q12H 5 days #40 caps 11/24/22 11/26/22 Rx Past Med/Surg History Medical History (Updated 11/26/22 @ 14:17 by Jayson Armstrong MD) Asthma Breathing stable CAD (coronary artery disease) S/p stents x4 (2015) to LAD S/p stent (2018) to D1 Known occluded distal LAD per cardio records On Brillinta Cancer of lung 1998 s/p lobectomy/chemo/xrt Cerebral aneurysm Followed by Neuro Head MRA 09/26/21= "Unchanged appearance of 2 small carotid artery aneurysms as detailed above. 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 No recent issues Hx pulmonary embolism Post-op (provoked in the setting of GI surgery) (01/2021) treated with Xarelto (Xarelto later discontinued after GI bleed) (no current problems) Hypertension Ischemic cardiomyopathy EF 35-40% per 12/2021 ECHO Follows with [facility] cardiology Laryngopharyngeal reflux Well controlled and stable Multifocal atrial tachycardia Neural hearing loss Pancreatic cyst Stable per 01/31/21 Abdomen/Pelvis CT scan Paroxysmal atrial tachycardia Sensorineural hearing loss of both ears Solitary pulmonary nodule 12/23/21 CT findings "stable" per pulmonary workload note 12/26/21 STEMI (ST elevation myocardial infarction) 2015, 2018 Tinnitus of right ear Surgical History (Updated 11/06/22 @ 11:00 by Annette Esteves) History of arthroplasty of left shoulder History of cardiac catheterization S/p stents x4 (2015) S/p stent (2018) to D1 Known occluded distal LAD per cardio records History of colonoscopy History of esophagogastroduodenoscopy (EGD) with dilation of esophagus - 10/30/22 History of excision of mass Neck (2017) Hx of cataract surgery R/L S/P appendectomy S/P excision of lipoma S/P laparoscopic cholecystectomy Lap samy (01/28/21): Grade view 1, MAC#4, ETT 7.5 at [facility] S/P lobectomy of lung Left S/P total knee arthroplasty Left Stented coronary artery Family History Brother Cancer Hypertension Sister Cancer Hypertension Diabetes Mother Hypertension Diabetes Unknown Coronary heart disease Father Coronary heart disease Daughter Breast cancer Other Lung cancer Myocardial infarction Denies family history of Ovarian cancer Prostate cancer Hearing loss No family history of adverse response to anesthesia No family history of bleeding disorder Heart disease Allergies Colorectal cancer Stroke Asthma Social History Smoking Status: Former smoker Tobacco Type: Cigarettes Age Started Using Tobacco: 23; Age Quit Using Tobacco: 51; packs per day: 0.5; Second Hand Exposure: No; Hx Alcohol Use: No Hx Substance Use: No Preferred Language: Japanese Communication Ability: Effective Visual Impairment: Limited 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: Use of Hearing Aid Business Development Director Required: No Beliefs That Will Affect Care: None marital status: Current Living Situation: Spouse current occupational status: retired current occupation: retired How many Children do You have: 1 Feels Safe at Home: Yes Childhood Exposure to Second-Hand Smoke: Yes caffeine: Yes (2 cups of coffee daily ) Dental Care, Regularly: No Physical Activity Frequency: Does not Exercise Seatbelt Use: always Sunscreen Use: Yes (sometimes) Do you think of yourself as: straight/heterosexual Assistive Devices: Cane and Walker Review of Systems Review of Systems: All systems reviewed & are unremarkable except as noted in HPI & below Physical Exam Physical Exam: General: A&Ox3. NAD. Cooperative. HEENT: Atraumatic, normocephalic. Vision and hearing grossly intact Pulm: Diminished in the bases.. Symmetrical chest rise. No increased work of breathing. No respiratory distress. Cardiac: Soft SM, regular. Radial pulses intact and symmetrical. Chest: Patient is with reproducible tenderness to palpation overlying left anterior chest Abdominal: Nontender, nondistended, soft. BS present. Extremities: Warm dry. No edema. Moving all extremities equally. Results & Data Results & Data ([facility]) Vital Signs (Past 12 Hours) Vital Signs Temp Pulse Resp BP Pulse Ox O2 Del Method 11/26/22 13:30 70 26 H 97 11/26/22 13:30 98/56 L 11/26/22 13:00 71 27 H 96 11/26/22 13:00 99/55 L 11/26/22 12:30 72 29 H 96 11/26/22 12:30 90/49 L 11/26/22 12:14 71 21 96 11/26/22 12:22 73 11/26/22 12:10 36.8 C 75 18 114/64 97 Room Air PG Care Time/CCT Total # of Minutes Spent Total Time Spent with Patient: Total time spent is greater than 50% in coordination of care (as documented) at patient's floor/unit and/or counseling patient: Coding Level of Care Code 22894 INT INP/OBS CARE 2/55MIN Diagnoses Chest pain R07.9 Chest pain type: unspecified HTN (hypertension) I10 Hypertension type: essential hypertension CAD (coronary artery disease) I25.119 Associated angina: with unspecified angina Coronary Disease-Associated Artery/Lesion type: unspecified vessel or lesion type [place] vs. transplanted heart: [place] heart Ischemic cardiomyopathy I25.5 Cerebral aneurysm I67.1 Dyslipidemia E78.5 CKD (chronic kidney disease) stage 3, GFR 30-59 ml/min N18.30 Chronic kidney disease stage 3 subtype: unspecified whether 3a or 3b Laryngopharyngeal reflux K21.9 Stented coronary artery Z95.5 Chronic obstructive pulmonary disease J44.9 COVID U07.1 (1) Chest pain Chest pain type: unspecified Qualified Code(s): R07.9 - Chest pain, unspecified (2) HTN (hypertension) Hypertension type: essential hypertension Qualified Code(s): I10 - Essential (primary) hypertension (3) CAD (coronary artery disease) Associated angina: with unspecified angina Coronary Disease-Associated Artery/Lesion type: unspecified vessel or lesion type [place] vs. transplanted heart: [place] heart Qualified Code(s): I25.119 - Atherosclerotic heart disease of [place] coronary artery with unspecified angina pectoris (7) CKD (chronic kidney disease) stage 3, GFR 30-59 ml/min Chronic kidney disease stage 3 subtype: unspecified whether 3a or 3b Qualified Code(s): N18.30 - Chronic kidney disease, stage 3 unspecified
--- NOTE | 2022-11-26 14:12 | XRay Report ---
XR chest 1V portable CLINICAL HISTORY: Chest pain, nonspecific COMPARISON STUDY: Chest CT December 23, 2021. Chest radiograph October 27, 2022. FINDINGS: Emphysema is present. There are stable posttherapy changes within the left hemithorax with volume loss and left perihilar irregular opacity which favors postradiation change. Elevation of the left hemidiaphragm is unchanged. There is no pneumothorax or pleural effusion. There is no evidence f or pulmonary edema. IMPRESSION: 1. No acute cardiopulmonary findings. No change in appearance of chest. Stable posttherapy changes wi thin the left lung with volume loss. 2. Emphysema. ACT 112: Negative or not required by law. Electronically signed by: Dalton Moreno M.D. 11/26/2022 1:03 PM
[2022-11-26] MEDS ORDERED: ALBUTEROL HFA 8 GM INHALER INH PRN (17:05)
[2022-11-26] MEDS ORDERED: NON-FORMULARY MEDICATION (Tiotropium Bromide [Spiriva Respimat] 2.5 mcg/actuation mist) INH PRN (17:05)
[2022-11-26] MEDS ORDERED: NITROGLYCERIN SL 0.4 MG/TAB TAB SL PRN (17:05)
[2022-11-26] MEDS ORDERED: ACETAMINOPHEN 325 MG TAB PO PRN (17:05)
[2022-11-26] MEDS ORDERED: LIDOCAINE 5% 1 PATCH TD STA (17:19)
[2022-11-26] MEDS: HEPARIN SOD 5,000 UNIT/0.5 ML VIAL SQ SCH ×2 (18:31→23:50)
[2022-11-26] MEDS ORDERED: CHOLECALCIFEROL 1,000 UNITS 25 MCG TAB PO SCH (21:00)
[2022-11-26] MEDS: carvediloL 3.125 MG TAB PO SCH (21:33)
[2022-11-26] MEDS: TICAGRELOR 90 MG TAB PO SCH (21:34)
--- NOTE | 2022-11-26 23:59 | Electrocardiogram Report ---
Test Reason : Blood Pressure : / mmHG Vent. Rate : 072 BPM Atrial Rate : 072 BPM P-R Int : 178 ms QRS Dur : 140 ms QT Int : 426 ms P-R-T Axes : 074 -74 077 degrees QTc Int : 466 ms Normal sinus rhythm Right bundle branch block Left anterior fascicular block Bifascicular block Septal infarct (cited on or before 27-OCT-2022) Abnormal ECG When compared with ECG of 27-OCT-2022 14:35, No significant change Confirmed by Josh Gillis ([id number]) on 11/26/2022 11:59:31 PM Referred By: REFERRED SELF Confirmed By:Josh Gillis
[2022-11-27 06:33] LABS: Basophils # (auto) 0.03 K/uL (0-0.2); Basophils % (auto) 0.5 %; Eosinophils # (auto) 0.11 K/uL (0-0.50); Eosinophils % (auto) 1.8 %; Hematocrit (blood only) 38.2 % (42.0-52.0); Hemoglobin 12.6 g/dl (14.0-18.0); Immature Granulocytes # (auto) 0.07 K/uL (0.01-0.20); Immature Granulocytes % (auto) 1.1 %; Lymphocytes # (auto) 1.01 K/uL (1.2-3.4); Lymphocytes % (auto) 16.3 %; Mean Corpuscular Hemoglobin 27.9 pg (25.0-34.0); Mean Corpuscular Volume 84.7 fL (80.0-100.0); Mean Platelet Volume 11.7 fL (9.4-12.4); Monocytes # (auto) 0.62 K/uL (0.11-0.59); Neutrophils # (auto) 4.36 K/uL (1.40-6.50); Neutrophils % (auto) 70.3 %; Platelet Count 156 K/uL (130-400); RDW Coefficient of Variation 14.7 % (11.5-14.5); RDW Standard Deviation 45.5 fL (36.4-46.3); Red Blood Count 4.51 M/uL (4.70-6.10)
[2022-11-27 07:05] LABS: BUN Creatinine Ratio 16.4 (10-20); Calcium 8.4 mg/dl (8.5-10.1); Creatinine Clr Calc Pharmacy 44.6 ml/min; Est GFR (African American) 58.3 ml/min; Est GFR (Non-African American) 50.3 ml/min; Potassium 4.1 mmol/L (3.5-5.1)
--- NOTE | 2022-11-27 07:57 | Hospitalist Progress Note ---
Date of Service November 27, 2022 Assessment & Plan (1) Chest pain: Plan: Acute, moderate risk, reproducible on exam, occurring for several hours prior to admission No change of troponins with trending, EKG with no ST segment changes, is with inferior T wave inversions. Discussed cardiology, suspect noncardiac in the setting of coughing and COVID, Stress test not recommended at this time Tylenol, lidocaine patch ordered as pain is reproducible on exam suspicious for costochondritis in the setting of 2 to 3 weeks of cough Follow on telemetry Continue DAPT (2) COVID: Plan: Positive home test 11/24/2022, acute issue moderate risk pneumonia is been ruled out no x-ray findings No hypoxia Patient has had 2 to 3 weeks of cough, completed a course of Levaquin 3 days ago Supportive care. steroids not indicated at this time. If hypoxic can add dexamethasone. Remdesivir not indicated at this time (3) HTN (hypertension): Plan: Chronic stable continue treatment with no medications (4) CAD (coronary artery disease): Plan: Chronic stable continue DAPT, beta-gene Patient with history of previous coronary stent (5) Ischemic cardiomyopathy: Plan: Chronic and stable (6) Cerebral aneurysm: Plan: No acute change (7) Dyslipidemia: Plan: Chronic and stable continue home medicines, patient is statin intolerant (8) CKD (chronic kidney disease) stage 3, GFR 30-59 ml/min: Plan: Chronic will need monitoring, BMP daily, renally adjust medications as required. Heparin used rather than Lovenox for DVT prophylaxis (9) Laryngopharyngeal reflux: (10) Chronic obstructive pulmonary disease: Plan: Chronic and stable continue home inhalers Plan DVT prophylaxis: Heparin Diet: Heart healthy Disposition: Medical telemetry for chest pain eval CODE STATUS: Full code for "1 round ", patient clarifies he would limit interventions to 10 minutes, but would want full interventions including CPR, intubation up to this point Admission and Anticipated Discharge Date Admission Date: November 26, 2022 Results & Data Results & Data ([facility]) Vital Signs (Past 12 Hours) Vital Signs Temp Pulse Pulse Resp BP Pulse Ox O2 Del Method 11/27/22 05:53 78 11/27/22 00:01 77 11/27/22 02:21 97.9 F 75 20 130/72 96 Room Air 11/26/22 20:00 Room Air 11/26/22 22:44 98.4 F 72 20 102/62 95 Room Air Diagnostic Findings Reviewed CBC Reviewed chemistry Reviewed serial troponins with no change PG Care Time/CCT Total # of Minutes Spent Total Time Spent with Patient: Total time spent is greater than 50% in coordination of care (as documented) at patient's floor/unit and/or counseling patient: Coding Diagnoses Chest pain R07.9 Chest pain type: unspecified COVID U07.1 HTN (hypertension) I10 Hypertension type: essential hypertension CAD (coronary artery disease) I25.119 Associated angina: with unspecified angina Coronary Disease-Associated Artery/Lesion type: unspecified vessel or lesion type [place] vs. transplanted heart: [place] heart Ischemic cardiomyopathy I25.5 Cerebral aneurysm I67.1 Dyslipidemia E78.5 CKD (chronic kidney disease) stage 3, GFR 30-59 ml/min N18.30 Chronic kidney disease stage 3 subtype: unspecified whether 3a or 3b Laryngopharyngeal reflux K21.9 Chronic obstructive pulmonary disease J44.9 (1) Chest pain Chest pain type: unspecified Qualified Code(s): R07.9 - Chest pain, unspecified (3) HTN (hypertension) Hypertension type: essential hypertension Qualified Code(s): I10 - Essential (primary) hypertension (4) CAD (coronary artery disease) Associated angina: with unspecified angina Coronary Disease-Associated Artery/Lesion type: unspecified vessel or lesion type [place] vs. transplanted heart: [place] heart Qualified Code(s): I25.119 - Atherosclerotic heart disease of [place] coronary artery with unspecified angina pectoris (8) CKD (chronic kidney disease) stage 3, GFR 30-59 ml/min Chronic kidney disease stage 3 subtype: unspecified whether 3a or 3b Qualified Code(s): N18.30 - Chronic kidney disease, stage 3 unspecified
[2022-11-27] MEDS: HEPARIN SOD 5,000 UNIT/0.5 ML VIAL SQ SCH (08:24)
[2022-11-27] MEDS: TICAGRELOR 90 MG TAB PO SCH (08:26)
[2022-11-27] MEDS: carvediloL 3.125 MG TAB PO SCH (08:27)
[2022-11-27] MEDS ORDERED: allopurinoL 100 MG TAB PO SCH (09:00)
[2022-11-27] MEDS ORDERED: UMECLIDINIUM BROMIDE 62.5MCG/BLISTER 7 PUFFS/INHALER INH SCH (09:00)
[2022-11-27] MEDS ORDERED: VERAPAMIL HCL 120 MG TABCR PO SCH (09:00)
[2022-11-27] MEDS ORDERED: VALSARTAN 80 MG TAB PO SCH (09:00)
[2022-11-27] MEDS ORDERED: ASPIRIN 81 MG ECTAB PO SCH (09:00)
[2022-11-27] MEDS ORDERED: PANTOprazole 40 MG TAB PO SCH (09:00)
[2022-11-27] MEDS ORDERED: EZETIMIBE 10 MG TABLET PO SCH (09:00)
[2022-11-27] MEDS ORDERED: LIDOCAINE 5% 1 PATCH TD SCH (09:00)
--- NOTE | 2022-11-27 17:55 | Discharge Summary ---
Date of Service November 27, 2022 Admission HPI Per Admitting Provider Isidoro Singleton is a 87-year-old male with a past medical history of CAD with history of PCI/stenting, ischemic cardiomyopathy, hypertension, CKD, COPD, and cardiac effusion who presents for a chest pain evaluation. On initial assessment patient is with normal high-sensitivity troponin, chronically mildly elevated lipaseEKG with nonspecific T wave changes without ST segment changes. Progress cardiology note review: Multivessel CAD. Ischemic cardiomyopathy with EF 40-45%, apical wall motion abnormality last echo 01/2022, hypertension well- controlled as outpatient, and intermittent paroxysmal atrial tachycardia asymptomatic. Has had a provoked PE in the setting of surgery 2020 without ongoing anticoagulation due to difficulty with epistaxis and provoked onset of his clot. Patient is intolerant of statins, Repatha; is continued on Zetia with LDL at goal at last check. Patient was briefly discussed with interventional cardiology, in the past patient has been extremely symptomatic with coronary events. His chest pain did slightly improve, but remains on initial eval and is slightly reproducible on physical exam. Suspect that this is noncardiac based on patient's prior history and exam,; however is reasonable to trend troponins overnight and follow. Defer stress test at this time. Defer heparinization at this time. Per patient: 930 am 10 cherst painpressure on L chest. Improved after nitro at home 1sx an din ER to 12/19. Intermittent sob, none at bedside. No lightheadedness/dizziness. No syncope. No exertional chest pain in the last few weeks Feels similar to pressure with prior stent events N onausea, vomiting, diarrhea, constipation No fevers, chills, sweats Chronic cough with yellow sputum production '2-3 weeks at least'. No night sweats. 2x prednisone courses, 3x abx courses which did not seem to help, finished Levaquin this past Thursday. Home test positive for COVID this past thursday (2 days ago). Medical History: Reviewed Medications: Reviewed Surgical History: Reviewed Allergies: Reviewed Social History: No alcohol use,no tobacco product Code Status: Surrogate DM would be [place]. Full Code, 1 round of CPR/compressions but no longer than 10 minutes total. Principal Diagnosis Noncardiogenic chest pain COVID-positive testing no pneumonia Discharge Exam Awake alert appropriate. Card exam is regular lungs are clear without wheezes or crackles Discharge Data Allergies Allergy/AdvReac Type Severity Reaction Status Date / Time Cephalosporins Allergy Intermediate Rash Verified 11/20/22 11:27 fluticasone Allergy Intermediate Rash Verified 11/20/22 11:27 Iodinated Contrast Media Allergy Intermediate Hives Verified 11/20/22 11:27 Penicillins Allergy Intermediate Rash Verified 11/20/22 11:27 salmeterol Allergy Mild Rash Verified 11/20/22 11:27 cephalexin [From Keflex] Allergy Unknown Hives Verified 11/20/22 11:27 pravastatin Allergy Unknown myalgias Verified 11/20/22 11:27 atorvastatin AdvReac Mild MUSCLE Verified 11/20/22 11:27 ACHES fluvastatin AdvReac Mild MUSCLE Verified 11/20/22 11:27 ACHES lisinopril AdvReac Mild Cough Verified 11/20/22 11:27 prednisone AdvReac Mild Unknown Verified 11/20/22 11:27 rosuvastatin AdvReac Mild MUSCLE Verified 11/20/22 11:27 ACHES Consultations 11/26/22 13:26 ED Decision to Admit Stat Ordered Studies Chest X-Ray 11/26/22 12:13 XR chest 1V portable CLINICAL HISTORY: Chest pain, nonspecific COMPARISON STUDY: Chest CT December 23, 2021. Chest radiograph October 27, 2022. FINDINGS: Emphysema is present. There are stable posttherapy changes within the left hemithorax with volume loss and left perihilar irregular opacity which favors postradiation change. Elevation of the left hemidiaphragm is unchanged. There is no pneumothorax or pleural effusion. There is no evidence for pulmonary edema. IMPRESSION: 1. No acute cardiopulmonary findings. No change in appearance of chest. Stable posttherapy changes within the left lung with volume loss. 2. Emphysema. ACT 112: Negative or not required by law. Electronically signed by: Dalton Moreno M.D. 11/26/2022 1:03 PM Hospital Course (1) Chest pain: Acute, moderate risk, reproducible on exam, occurring for several hours prior to admission No change of troponins with trending, EKG with no ST segment changes, is with inferior T wave inversions. Discussed cardiology, suspect noncardiac in the setting of coughing and COVID, Stress test not recommended at this time Tylenol, patient opted to continue lidocaine patch after discharge will follow-up with primary care physician to continue discussing pain control methods if needed Continue DAPT (2) COVID: Positive home test 11/24/2022, acute issue moderate risk pneumonia is been ruled out no x-ray findings No hypoxia Patient has had 2 to 3 weeks of cough, completed a course of Levaquin 3 days ago Supportive care. steroids not indicated at this time. If hypoxic can add dexamethasone. Remdesivir not indicated at this time Patient educated on home self-isolation techniques and instructions given (3) HTN (hypertension): Chronic stable continue treatment with no medications (4) CAD (coronary artery disease): Chronic stable continue DAPT, beta-gene Patient with history of previous coronary stent (5) Ischemic cardiomyopathy: Chronic and stable (6) Cerebral aneurysm: No acute change (7) Dyslipidemia: Chronic and stable continue home medicines, patient is statin intolerant (8) CKD (chronic kidney disease) stage 3, GFR 30-59 ml/min: Chronic and stable (9) Laryngopharyngeal reflux: (10) Chronic obstructive pulmonary disease: Chronic and stable continue home inhalers Plan CODE STATUS: Full code for "1 round ", patient clarifies he would limit interventions to 10 minutes, but would want full interventions including CPR, intubation up to this point Total Time Total Time Spent Total Time Spent (In Minutes): It required greater than 30 minutes to prepare this patient for discharge Discharge Plan Discharge Items Patient Disposition: Home - Self-Care Reason For Visit: CHEST PAIN EVAL, HIGH RISK HX Discharge Diagnosis: non cardiac chest pain covid infection, pneumonia ruled out Activity: Per Instructions section Activity Comment: slowly resume activity Non-emergency contact: Primary Care Provider Call non-emergency contact if: your symptoms worsen Follow-up/Referrals: Ming Gupta DO [Primary Care Provider] - 12/04/22 11:00 am Diet: Low Sodium (2gm) Addtl Attending Provider Instructions: Please use the topical patches if your pain continues you may also use Tylenol for pain control, if your pain worsened please see your primary care, and please also see your primary care in a week of so after discharge, hopefully after your covid isolation is done You have been diagnosed with covid infection, it would be recommended that you quarantine yourself for 10 days from your first test or first symptoms, and if at the 10th day you have no symptoms the you can come off quarantine but use common sense precautions. Quarantine means attempting to stay away from people who have not had an active covid infection in the past, and if you have to be around others to wear a mask even if you are indoors, do not share a room to sleep in with others until you are out of quarantine. If you still have symptoms at the 10th day, continue to quarantine until you are symptom free for 48 hours Pending Studies at Discharge: No Stand-Alone Forms: My [facility], Smoking Cessation Medications and DC Order Prescriptions: New lidocaine 5 % Adhesive Patch,Medicated 1 patch transdermal QAM Qty: 10 0RF Continued carvedilol [Coreg] 3.125 mg tablet 3.125 mg PO BID Qty: 180 3RF ezetimibe [Zetia] 10 mg tablet 10 mg PO QAM Qty: 90 3RF valsartan 40 mg tablet 20 mg PO QAM Qty: 45 3RF verapamil 120 mg capsule,ext rel. pellets 24 hr 120 mg PO QAM 90 Days Qty: 90 1RF allopurinol 100 mg tablet 100 mg PO QAM Qty: 90 1RF Brilinta 90 mg tablet 90 mg PO BID Qty: 180 3RF Spiriva Respimat 2.5 mcg/actuation mist 2 inh inhalation QAM PRN (Reason: sob) molnupiravir 200 mg capsule 800 mg PO Q12H 5 Days Qty: 40 0RF Galzin 50 mg (zinc) capsule 50 mg PO QAM albuterol sulfate 90 mcg/actuation HFA aerosol inhaler 2 puffs INH QID PRN (Reason: Wheezing) nitroglycerin 0.4 mg tablet, sublingual 0.4 mg sublingual Q5M PRN (Reason: chest pain) Qty: 30 6RF Rx Instructions: do not exceed 3 doses per episode cholecalciferol (vitamin D3) [Vitamin D3] 1,000 unit Capsule 2,000 unit PO HS aspirin [Adult Aspirin Regimen] 81 mg tablet,delayed release (DR/EC) 81 mg PO QAM pantoprazole [Protonix] 40 mg tablet,delayed release (DR/EC) 40 mg PO DAILY 28 Days Qty: 28 0RF Discontinued levofloxacin 500 mg tablet 500 mg PO Q24H 10 Days Qty: 10 0RF Discharge Orders: Discharge Order (Routine); Ordered 11/27/22 Ordered By: Ming Matias Admission Data Admit Date/Time: 11/26/22 13:59 Attending Provider: Ming Matias Admit Provider: Jayson Armstrong Primary Care Provider: Ming Gupta Other Providers: Jayson Armstrong Other Interventions: Discharge Summary Assessment (RN) Last Done: 11/27/22 11:17 Coding Level of Care Code HOSP INP/OBS DISCH >30 MIN Diagnoses Chest pain R07.9 Chest pain type: unspecified COVID U07.1 HTN (hypertension) I10 Hypertension type: essential hypertension CAD (coronary artery disease) I25.119 Associated angina: with unspecified angina Coronary Disease-Associated Artery/Lesion type: unspecified vessel or lesion type [place] vs. transplanted heart: [place] heart Ischemic cardiomyopathy I25.5 Cerebral aneurysm I67.1 Dyslipidemia E78.5 CKD (chronic kidney disease) stage 3, GFR 30-59 ml/min N18.30 Chronic kidney disease stage 3 subtype: unspecified whether 3a or 3b Laryngopharyngeal reflux K21.9 Chronic obstructive pulmonary disease J44.9
== END 2022-11-27 12:07 | disposition home or self-care (01) ==
LOC: ED 12:05 → EDINP 12:05 → SUATTDRO 13:59 → 2S 18:37

== ENCOUNTER 2024-06-29 04:29 | Inpatient (IN) ==
--- NOTE | 2024-06-29 04:43 | Emergency Department Note ---
Impression & Plan Chest pain, Anemia ED Provider Note NAME: ESTUARDO PUGH AGE: 88 SEX: M : 1935 ARRIVES VIA: Ambulance INFORMANT: Patient ED PROVIDER(S): Shar Sneed DO CHIEF COMPLAINT: chest pain HPI: Patient is an 88-year-old male who presents to the ER with a past medical history of CKD, dyslipidemia, COPD, ischemic cardiomyopathy, CAD with 4 stents last placed about 6 years ago who presents ER for chest heaviness. He notes this started somewhere around 1:00 and woke him up from sleep. This feels like his previous [place]. He admits to shortness of breath and left arm pain. He took 2 nitro at home he was given 3 nitro via EMS. His pain nearly abated and is very faint at this time. Denies any belly pain, nausea, vomiting, or diarrhea. No dysuria, urgency, or frequency. No other exacerbating or remitting factors. ADDITIONAL HISTORY OBTAINED: Per HPI Chronic Medical/Social Conditions Affecting Care: Per HPI PAST MEDICAL HISTORY:See Below PAST SURGICAL HISTORY:See Below FAMILY HISTORY:See Below SOCIAL HISTORY:See Below HOME MEDICATIONS:See Below ALLERGIES:See Below VITALS:See Below PHYSICAL EXAMINATION: GENERAL: Sitting up in bed, alert, well appearing, well nourished, no distress, non-toxic EYE EXAM: normal conjunctiva. OROPHARYNX: no exudate, no erythema, lips, buccal mucosa, and tongue normal and mucous membranes are moist NECK: supple, no nuchal rigidity, no adenopathy, non-tender LUNGS: Clear to auscultation. Normal chest wall mechanics HEART: no murmurs, S1 normal and S2 normal ABDOMEN: abdomen soft, non-tender, normo-active bowel sounds, no masses, no rebound or guarding. UPPER EXTREMITIES: upper extremities are grossly normal. Radial pulses equal bilaterally LOWER EXTREMITIES: No pitting edema. Calves are equal bilaterally NEURO EXAM: Normal sensorium, cranial nerves II-XII grossly intact, normal speech, no gross weakness of arms, no gross weakness of legs. MEDICAL DECISION MAKING: Patient is an 88-year-old male who presents ER for the above-stated complaint. IV was established medicos obtained. Labs show no significant leukocytosis. Mild anemia 11.1. BMP along with LFTs bilirubin is unremarkable. Mag is normal. Troponin is negative. Lipase is unremarkable. Patient was given nitro prior to arrival and blood pressure did drop. He was given IV fluids. He was updated bedside. Heart rate trended down to the 80s without intervention. Discussed with the hospitalist for further evaluation management treatment. Chest x-ray was unchanged. Previous CTs of the chest in 2021 shows no aortic abnormalities. Patient is a high risk for ACS and consequently was admitted. Consults/Care Managements Discussions: Per [facility] Triage Nursing notes reviewed. Limited review of prior medical records performed Vital Signs: reviewed and remarkable for tachy Differential diagnosis: Cardiac ischemia, aortic dissection, pulmonary embolism, pneumothorax, pneumonia, pericarditis, myocarditis, esophageal rupture, GERD, cholecystitis, pancreatitis, musculoskeletal, as well as other pathologies. ER treatment provided: See below Diagnostics interpreted by me include EKG and cardiac monitoring as listed below: -Cardiac Monitoring: An order was placed for continuous cardiac monitoring. The monitor shows a rate of 110 with A-fib rhythm. -ECG: A-fib rate of [address] depressions in the high lateral leads Septal Q waves PVC present QTc 503 -Laboratory studies:Interpreted by me as stated above in MDM and shown below. Imaging studies: Xrays: As interpreted by me: Portable AP upright 1 view of the chest shows no focal M-Trate CTs show: none Procedures:none Critical Care: None Past Med/Surg History Problem List (Updated 06/29/24 @ 06:15 by Shar Sneed DO) Anemia (Acute) Cutaneous lymphoma H/O right inguinal hernia repair (05/04/23) Open Right Inguinal Hernia Repair(Right) - Benjamin Duvall MD, FACS Encounter for pre-operative examination Stented coronary artery Chronic osteoarthritis (Acute) Pulmonary emphysema (Acute) Vitamin D deficiency (Chronic) HTN (hypertension) Lower urinary tract symptoms (LUTS) (Chronic) Gout Gross hematuria Urinary urgency Pericardial effusion Painful total knee replacement, left Chest pain (Acute) Right inguinal hernia CAD (coronary artery disease) (Chronic) S/p stents x4 (2015) to LAD S/p stent (2018) to D1 Known occluded distal LAD per cardio records On Brillinta Ischemic cardiomyopathy EF 40-45% per 01/2022 ECHO Follow[facility] Cerebral aneurysm (Acute) Followed by Neuro- only follows PRN with neurology- due for repeat head MRA 08/2024 Head MRA 09/26/21= "Unchanged appearance of 2 small carotid artery aneurysms as detailed above. These measure up to 2.5 mm." Hemiplegic migraine No recent issues Chronic obstructive pulmonary disease Dyslipidemia (Chronic) CKD (chronic kidney disease) stage 3, GFR 30-59 ml/min Laryngopharyngeal reflux Well controlled and stable Pancreatic cyst (Chronic) Stable per 01/31/21 Abdomen/Pelvis CT scan Medical History Lyme disease hx - ~. no recent issues History of COVID-30 October 2022 -> generalized weakness, joint pain, cough, and nausea. treated inpatient at [facility]. 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 Solitary pulmonary nodule 12/23/21 CT findings "stable" per pulmonary workload note 12/26/21 Hypertension Cancer of lung 1998 s/p lobectomy/chemo/xrt STEMI (ST elevation myocardial infarction) 2018 Surgical History H/O left knee surgery Left knee polyexchange tibial component (02/2022 at [facility] with Dr Mcdowell) H/O sinus surgery nasal cautery History of arthroscopy of left shoulder History of esophagogastroduodenoscopy (EGD) with dilation of esophagus - 10/30/22 S/P laparoscopic cholecystectomy Lap samy (01/28/21): Grade view 1, MAC#4, ETT 7.5 at [facility] History of excision of mass Neck (2017) x2 History of colonoscopy S/P excision of lipoma Hx of cataract surgery R/L S/P lobectomy of lung Left (February 1999 at [facility]) d/t lung ca S/P total knee arthroplasty Left S/P appendectomy History of cardiac catheterization S/p stents x4 (2015) S/p stent (2018) to D1 Known occluded distal LAD per cardio records Family History Brother Cancer Hypertension Sister Cancer Hypertension Diabetes Mother Hypertension Diabetes Unknown Coronary heart disease Father Coronary heart disease Daughter Breast cancer Other Lung cancer Myocardial infarction Denies family history of Ovarian cancer Prostate cancer Hearing loss No family history of adverse response to anesthesia No family history of bleeding disorder Heart disease Allergies Colorectal cancer Stroke Asthma Social History Smoking Status: Former smoker Tobacco Type: Cigarettes Age Started Using Tobacco: 23; Age Quit Using Tobacco: 51; packs per day: 0.5; Second Hand Exposure: No; Do You Dip or Chew Tobacco: No; Hx Alcohol Use: No Hx Substance Use: No Preferred Language: Czech Communication Ability: Effective Visual Impairment: No Limitations 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: Use of Hearing Aid Academic Computing Director Required: No Beliefs That Will Affect Care: None marital status: Current Living Situation: Spouse current occupational status: retired current occupation: retired How many Children do You have: 1 Feels Safe at Home: Yes Childhood Exposure to Second-Hand Smoke: Yes Diet: regular caffeine: Yes (2 cups of coffee daily ) Dental Care, Regularly: No Physical Activity Frequency: Does not Exercise Seatbelt Use: always Sunscreen Use: Yes (sometimes) Do you think of yourself as: straight/heterosexual Assistive Devices: Denture - Upper, Denture - Lower and Hearing Aid - Bilateral Allergies Allergies Allergy/AdvReac Type Severity Reaction Status Date / Time cephalexin [From Keflex] Allergy Intermediate Hives Verified 03/31/24 11:14 Cephalosporins Allergy Intermediate Rash Verified 03/31/24 11:14 fluticasone Allergy Intermediate Rash Verified 03/31/24 11:14 Iodinated Contrast Media Allergy Intermediate Hives Verified 03/31/24 11:14 Penicillins Allergy Intermediate Rash Verified 03/31/24 11:14 pravastatin Allergy Intermediate myalgias Verified 03/31/24 11:14 salmeterol Allergy Mild Rash Verified 03/31/24 11:14 atorvastatin AdvReac Mild MUSCLE Verified 03/31/24 11:14 ACHES fluvastatin AdvReac Mild MUSCLE Verified 03/31/24 11:14 ACHES lisinopril AdvReac Mild Cough Verified 03/31/24 11:14 prednisone AdvReac Mild Unknown Verified 03/31/24 11:14 rosuvastatin AdvReac Mild MUSCLE Verified 03/31/24 11:14 ACHES Home Meds Home Medications Medication Instructions Recorded Confirmed cholecalciferol (vitamin D3) 25 2,000 unit PO HS 06/25/18 03/31/24 mcg (1,000 unit) capsule (Vitamin D3) zinc acetate 50 mg (zinc) capsule 50 mg PO QAM 03/23/20 03/31/24 (Galzin) albuterol sulfate 90 mcg/actuation 2 puffs inhalation QID PRN Wheezing 06/12/20 03/31/24 aerosol inhaler (ProAir HFA) aspirin 81 mg tablet,delayed 81 mg PO QAM 01/29/22 06/29/24 release (Adult Aspirin Regimen) carvedilol 3.125 mg tablet (Coreg) 3.125 mg PO PM 03/31/24 06/29/24 allopurinol 100 mg tablet 100 mg PO DAILY 06/29/24 06/29/24 verapamil 120 mg 24 hr 120 mg PO DAILY 06/29/24 06/29/24 capsule,extended release Previous Rx's Medication Instructions Recorded nitroglycerin 0.4 mg sublingual 0.4 mg sublingual Q5M PRN chest 11/20/22 tablet pain #30 tabs ticagrelor 90 mg tablet (Brilinta) 90 mg PO BID #180 tabs 09/09/23 pneumoc 20-arabella conj-dip cr(PF) 0.5 0.5 ml IM ONCE #0.5 mL 01/05/24 mL IM syringe (Prevnar 20 (PF)) prednisone 10 mg tablet See Rx Instructions .Route 03/25/24 .COMPLEX #15 tabs levofloxacin 500 mg tablet 500 mg PO DAILY 5 days #5 tabs 04/11/24 prednisone 20 mg tablet 20 mg PO DAILY 5 days #5 tabs 04/11/24 fluticasone fur. 100 mcg-umeclid See Rx Instructions .Route 04/19/24 62.5 mcg-vilant 25 mcg .COMPLEX #60 ea inhalat.powder (Trelegy Ellipta) valsartan 40 mg tablet (Diovan) 20 mg (1/2 x 40 mg) PO QAM #45 tabs 04/21/24 ezetimibe 10 mg tablet (Zetia) 10 mg PO QAM #90 tabs 05/06/24 Results & Data (ED) Vital Signs Vital Signs - 24 hr 06/29/24 04:32 06/29/24 04:35 06/29/24 04:37 Temperature 36.4 C L Temperature Source Oral Pulse Rate 99 H 98 H 103 H Pulse Rate [Apical] Pulse Rate from SpO2 Sensor Respiratory Rate 20 Respiratory Effort / Characteristics Non-Labored Respiratory Depth Normal Respiratory Pattern Regular Blood Pressure 103/76 103/76 Blood Pressure [Right Arm] Blood Pressure Mean 85 80 Blood Pressure Mean [Right Arm] Blood Pressure Position Sitting Pulse Oximetry 98 99 Oxygen Delivery Method Room Air Sepsis Recent Fever Within 48 Hours No Sepsis New/Unexplained Change in Mental Status No Sepsis Action Taken by Nursing No Action Required 06/29/24 04:43 06/29/24 04:45 06/29/24 04:45 Temperature Temperature Source Pulse Rate Pulse Rate [Apical] Pulse Rate from SpO2 Sensor Respiratory Rate Respiratory Effort / Characteristics Respiratory Depth Respiratory Pattern Blood Pressure 94/70 L 98/54 L 98/54 L Blood Pressure [Right Arm] Blood Pressure Mean 74 77 77 Blood Pressure Mean [Right Arm] Blood Pressure Position Pulse Oximetry Oxygen Delivery Method Sepsis Recent Fever Within 48 Hours Sepsis New/Unexplained Change in Mental Status Sepsis Action Taken by Nursing 06/29/24 04:48 06/29/24 04:52 06/29/24 04:52 Temperature Temperature Source Pulse Rate 106 H Pulse Rate [Apical] 95 H Pulse Rate from SpO2 Sensor 89 Respiratory Rate 24 18 Respiratory Effort / Characteristics Non-Labored Respiratory Depth Normal Respiratory Pattern Regular Blood Pressure Blood Pressure [Right Arm] 98/54 L Blood Pressure Mean Blood Pressure Mean [Right Arm] 68 Blood Pressure Position Pulse Oximetry 96 98 98 Oxygen Delivery Method Room Air Sepsis Recent Fever Within 48 Hours Sepsis New/Unexplained Change in Mental Status Sepsis Action Taken by Nursing 06/29/24 04:52 06/29/24 05:00 06/29/24 05:26 Temperature Temperature Source Pulse Rate 89 96 H 84 Pulse Rate [Apical] Pulse Rate from SpO2 Sensor 87 Respiratory Rate 18 18 20 Respiratory Effort / Characteristics Respiratory Depth Respiratory Pattern Blood Pressure 93/62 L 97/59 L Blood Pressure [Right Arm] Blood Pressure Mean 70 66 Blood Pressure Mean [Right Arm] Blood Pressure Position Pulse Oximetry 98 98 99 Oxygen Delivery Method Room Air Sepsis Recent Fever Within 48 Hours Sepsis New/Unexplained Change in Mental Status Sepsis Action Taken by Nursing 06/29/24 05:45 Temperature Temperature Source Pulse Rate 86 Pulse Rate [Apical] Pulse Rate from SpO2 Sensor Respiratory Rate 22 Respiratory Effort / Characteristics Respiratory Depth Respiratory Pattern Blood Pressure 92/66 L Blood Pressure [Right Arm] Blood Pressure Mean 69 Blood Pressure Mean [Right Arm] Blood Pressure Position Pulse Oximetry 98 Oxygen Delivery Method Sepsis Recent Fever Within 48 Hours Sepsis New/Unexplained Change in Mental Status Sepsis Action Taken by Nursing Laboratory Data 06/29/24 04:40 06/29/24 04:40 Lab Results 06/29/24 Range/Units 04:40 WBC 6.21 (4.8-10.8) K/ul RBC 4.41 L (4.70-6.10) M/uL Hgb 11.1 L (14.0-18.0) g/dl Hct 34.4 L (42.0-52.0) % MCV 78.0 L (80.0-100.0) fL MCH 25.2 (25.0-34.0) pg MCHC 32.3 (32.0-36.0) g/dL RDW Std Deviation 50.7 H (36.4-46.3) fL RDW Coeff of Falguni 17.9 H (11.5-14.5) % Plt Count 210 (130-400) K/uL MPV 11.7 (9.4-12.4) fL Immature Gran % (Auto) 0.3 % Neut % (Auto) 62.6 % Lymph % (Auto) 21.3 % [place] % (Auto) 11.8 % Eos % (Auto) 2.6 % Baso % (Auto) 1.4 % Neut # (Auto) 3.89 (1.40-6.50) K/uL Lymph # (Auto) 1.32 (1.20-3.40) K/uL [place] # (Auto) 0.73 H (0.11-0.59) K/uL Eos # (Auto) 0.16 (0.00-0.50) K/uL Baso # (Auto) 0.09 (0.00-0.20) K/uL Immature Gran # (Auto) 0.02 (0.01-0.20) K/uL Sodium 138 (136-145) mmol/L Potassium 4.0 (3.5-5.1) mmol/L Chloride 107 (98-107) mmol/L Carbon Dioxide 26 (21-32) mmol/L Anion Gap 5 (3-11) BUN 20 (6-23) mg/dl Creatinine 1.22 (0.6-1.4) mg/dl Est Cr Clr Drug Dosing 46.6 ml/min Est GFR ( Amer) 61.4 ml/min Est GFR (Non-Af Amer) 53.0 ml/min BUN/Creatinine Ratio 16.4 (10-20) Glucose 99 (70-99(Fasting)) mg/dl Calcium 9.3 (8.6-10.3) mg/dl Phosphorus 2.9 (2.5-4.9) mg/dl Magnesium 2.0 (1.7-2.4) mg/dl Total Bilirubin 1.2 H (0.2-1.0) mg/dl AST 14 (13-39) U/L ALT 10 (7-52) U/L Alkaline Phosphatase 69 (34-104) U/L Troponin I High Sens 15.7 (0-20) pg/ml Total Protein 6.9 (6.0-8.3) gm/dl Albumin 4.1 (3.4-5.0) gm/dl Globulin 2.8 (2.5-4.0) gm/dl Albumin/Globulin Ratio 1.5 (0.9-2) Lipase 63 (11-82) U/L Administered Medications Discontinued Medications Sodium Chloride (Nss) 500 mls @ 999 mls/hr IV .Q31M ONE Stop: 06/29/24 05:16 Last Infusion: 06/29/24 05:24 Dose: Infused Documented By: Admin: 06/29/24 04:48 Dose: 999 mls/hr Documented By: TRENA Sodium Chloride (Nss) 500 mls @ 999 mls/hr IV .Q31M ONE Stop: 06/29/24 05:47 Last Infusion: 06/29/24 05:48 Dose: Infused Documented By: Admin: 06/29/24 05:22 Dose: 999 mls/hr Documented By: TRENA Metoprolol Tartrate (Metoprolol Tartrate 1 Mg/Ml Vial) 2.5 mg IV NOW STA Stop: 06/29/24 04:39 Last Admin: 06/29/24 05:19 Dose: Not Given Documented By: TRENA Morphine Sulfate (Morphine Sulfate 4 Mg/Ml 1 Ml Carp\\Vial) 4 mg IV NOW STA Stop: 06/29/24 04:39 Last Admin: 06/29/24 05:19 Dose: Not Given Documented By: TRENA Discharge Plan Visit Data Chief Complaint: Cardiac Assessment Stated Complaint: CHEST PAIN, WORSENS WITH INSPIRATION ED Provider: Shar Sneed Discharge Problem: Chest pain, Anemia Forms Stand Alone Forms: My [facility] Prescriptions Prescriptions: No Action Brilinta 90 mg tablet 90 mg PO BID Qty: 180 3RF prednisone 10 mg tablet See Rx Instructions .ROUTE .COMPLEX Qty: 15 0RF Rx Instructions: Take 2 tablets PO QD x 5 day, then 1 tablet for 5 days. prednisone 20 mg tablet 20 mg PO DAILY 5 Days Qty: 5 0RF levofloxacin 500 mg tablet 500 mg PO DAILY 5 Days Qty: 5 0RF Trelegy Ellipta 100-62.5-25 mcg blister with device See Rx Instructions .ROUTE .COMPLEX Qty: 60 6RF Dose Instruction: INHALE 1 PUFF BY MOUTH AND INTO THE LUNGS ONCE DAILY RINSE MOUTH AFTER USE Rx Instructions: INHALE 1 PUFF BY MOUTH AND INTO THE LUNGS ONCE DAILY RINSE MOUTH AFTER USE valsartan [Diovan] 40 mg tablet 20 mg PO QAM Qty: 45 3RF ezetimibe [Zetia] 10 mg tablet 10 mg PO QAM Qty: 90 3RF Prevnar 20 (PF) 0.5 mL syringe 0.5 ml IM ONCE Qty: 0.5 0RF Galzin 50 mg (zinc) capsule 50 mg PO QAM albuterol sulfate [ProAir HFA] 90 mcg/actuation HFA aerosol inhaler 2 puffs INH QID PRN (Reason: Wheezing) nitroglycerin 0.4 mg tablet, sublingual 0.4 mg sublingual Q5M PRN (Reason: chest pain) Qty: 30 6RF Rx Instructions: do not exceed 3 doses per episode carvedilol [Coreg] 3.125 mg tablet 3.125 mg PO PM cholecalciferol (vitamin D3) [Vitamin D3] 1,000 unit Capsule 2,000 unit PO HS aspirin [Adult Aspirin Regimen] 81 mg tablet,delayed release (DR/EC) 81 mg PO QAM allopurinol 100 mg tablet 100 mg PO DAILY verapamil 120 mg capsule,ext rel. pellets 24 hr 120 mg PO DAILY Referrals Referrals: Ming Gupta DO [Primary Care Provider] - Discharge Problem: Chest pain Qualifiers: Chest pain type: unspecified Qualified Code(s): R07.9 - Chest pain, unspecified Anemia Qualifiers: Anemia type: unspecified type Qualified Code(s): D64.9 - Anemia, unspecified
[2024-06-29] MEDS: SODIUM CHLORIDE 0.9% 500 ML IV ONE ×2 (04:48→05:22)
[2024-06-29 05:02] LABS: Basophils # (auto) 0.09 K/uL (0.00-0.20); Basophils % (auto) 1.4 %; Eosinophils # (auto) 0.16 K/uL (0.00-0.50); Eosinophils % (auto) 2.6 %; Hematocrit (blood only) 34.4 % (42.0-52.0); Hemoglobin 11.1 g/dl (14.0-18.0); Immature Granulocytes # (auto) 0.02 K/uL (0.01-0.20); Immature Granulocytes % (auto) 0.3 %; Lymphocytes # (auto) 1.32 K/uL (1.20-3.40); Lymphocytes % (auto) 21.3 %; Mean Corpuscular Hemoglobin 25.2 pg (25.0-34.0); Mean Corpuscular Hgb Conc 32.3 g/dL (32.0-36.0); Mean Platelet Volume 11.7 fL (9.4-12.4); Monocytes # (auto) 0.73 K/uL (0.11-0.59); Monocytes % (auto) 11.8 %; Neutrophils # (auto) 3.89 K/uL (1.40-6.50); Neutrophils % (auto) 62.6 %; Platelet Count 210 K/uL (130-400); RDW Coefficient of Variation 17.9 % (11.5-14.5); RDW Standard Deviation 50.7 fL (36.4-46.3); Red Blood Count 4.41 M/uL (4.70-6.10); White Blood Count 6.21 K/ul (4.8-10.8)
[2024-06-29 05:11] LABS: Albumin Globulin Ratio 1.5 (0.9-2); Albumin Level 4.1 gm/dl (3.4-5.0); BUN Creatinine Ratio 16.4 (10-20); Bilirubin,Total 1.2 mg/dl (0.2-1.0); Calcium 9.3 mg/dl (8.6-10.3); Creatinine Clr Calc Pharmacy 46.6 ml/min; Est GFR (African American) 61.4 ml/min; Globulin 2.8 gm/dl (2.5-4.0); Total Protein 6.9 gm/dl (6.0-8.3)
[2024-06-29 05:18] LABS: Troponin I High Sensitivity 15.7 pg/ml (0-20)
[2024-06-29] MEDS: METOPROLOL TARTRATE 1 MG/ML VIAL IV STA (05:19)
[2024-06-29] MEDS: MoRPHine SULFATE 4 MG/ML 1 ML CARP\\VIAL IV STA (05:19)
[2024-06-29 05:41] LABS: Phosphorus 2.9 mg/dl (2.5-4.9)
--- NOTE | 2024-06-29 06:06 | History & Physical Report ---
Date of Service June 29, 2024 Assessment & Plan (1) Chest pain: Plan: 88yo male with known CAD s/p multiple stents - last 6 years ago - known distal occlusion of LAD presenting with chest pain, substernal with radiation to the left arm and back as well as some dizziness. Troponin x 1 unremarkable EKG with new atrial fibrillation Differential to include ACS, musculoskeletal, possible PE - patient with new AF, borderline low BP, h/o prior PE -Admit to PCU -Trend troponin x 3 sets -Continue home ASA and Brillinta -Nitro PRN chest pain as blood pressure allows -EKG as needed with chest pain -Check d-dimer - pursue CTA if above age-adjusted cutoff -Cardiology consultation appreciated (2) CAD (coronary artery disease): Plan: Patient with known CAD presenting with chest pain. EKG with no acute ischemic changes. Troponin x 1 negative -Telemetry monitoring -Troponin -Continue ASA and Brillinta -Hold Carvedilol and Valsartan given low blood pressures (3) Atrial fibrillation: Plan: New onset atrial fibrillation. -Check TSH, Mg -Check 2D echo -Heparin gtt for anticoagulation -Hold Carvedilol for borderline low BP -Cardiology consultation appreciated Plan CHF - patient with ICM, HFrEF 40-45% per echo 02/10/24 with severe mid to apical anterior hypokinesis and mildly hypokinetic lateral an anteroseptal segments. Does not appear volume overloaded at present -Holding Carvedilol for now -Holding Valsartan for now Complicated Migraine -Hold Verapamil for now given low blood pressure Hyperlipidemia -Continue Zetia History of Present Illness Chief Complaint: chest pain Primary Care Provider: DO Agnieszka Pro Areli is an 88yo male with history of CAD - multivessel s/p multiple interventions to the LAD/diagonal, known occluded distal LAD, ICM with EF 40-45% with apical wall motion abnormality, HTN, HLP, COPD, provoked PE after GI surgery in 01/2021 presenting with chest pain. Patient reports sudden onset of severe left sided chest pain this evening. He is not sure if it woke him from sleep or if he woke up then developed the chest pain. He describes the pain as severe, substernal pressure with radiation into the left arm and back. He also had some associated lightheadedness but denies diaphoresis, palpitations, nausea or syncope. Patient took 2 Nitro at home with some improvement. EMS was called and administered additional Nitro with further improvement. Pain is somewhat pleuritic, non-positional. In the ER patient found to be in new onset atrial fibrillation with HR 110's in itially Blood pressure has been borderline low ER Course: NSS 500mL x 2 Allergies Allergy/AdvReac Type Severity Reaction Status Date / Time cephalexin [From Keflex] Allergy Intermediate Hives Verified 03/31/24 11:14 Cephalosporins Allergy Intermediate Rash Verified 03/31/24 11:14 fluticasone Allergy Intermediate Rash Verified 03/31/24 11:14 Iodinated Contrast Media Allergy Intermediate Hives Verified 03/31/24 11:14 Penicillins Allergy Intermediate Rash Verified 03/31/24 11:14 pravastatin Allergy Intermediate myalgias Verified 03/31/24 11:14 salmeterol Allergy Mild Rash Verified 03/31/24 11:14 atorvastatin AdvReac Mild MUSCLE Verified 03/31/24 11:14 ACHES fluvastatin AdvReac Mild MUSCLE Verified 03/31/24 11:14 ACHES lisinopril AdvReac Mild Cough Verified 03/31/24 11:14 prednisone AdvReac Mild Unknown Verified 03/31/24 11:14 rosuvastatin AdvReac Mild MUSCLE Verified 03/31/24 11:14 ACHES Home Medications Medication Instructions Recorded Confirmed Type cholecalciferol (vitamin D3) 25 2,000 unit PO HS 06/25/18 03/31/24 History mcg (1,000 unit) capsule (Vitamin D3) zinc acetate 50 mg (zinc) capsule 50 mg PO QAM 03/23/20 03/31/24 History (Galzin) albuterol sulfate 90 mcg/actuation 2 puffs inhalation QID PRN Wheezing 06/12/20 03/31/24 History aerosol inhaler (ProAir HFA) aspirin 81 mg tablet,delayed 81 mg PO QAM 01/29/22 06/29/24 History release (Adult Aspirin Regimen) nitroglycerin 0.4 mg sublingual 0.4 mg sublingual Q5M PRN chest 11/20/22 06/29/24 Rx tablet pain #30 tabs ticagrelor 90 mg tablet (Brilinta) 90 mg PO BID #180 tabs 09/09/23 06/29/24 Rx pneumoc 20-arabella conj-dip cr(PF) 0.5 0.5 ml IM ONCE #0.5 mL 01/05/24 03/31/24 Rx mL IM syringe (Prevnar 20 (PF)) prednisone 10 mg tablet See Rx Instructions .Route 03/25/24 03/31/24 Rx .COMPLEX #15 tabs carvedilol 3.125 mg tablet (Coreg) 3.125 mg PO PM 03/31/24 06/29/24 History levofloxacin 500 mg tablet 500 mg PO DAILY 5 days #5 tabs 04/11/24 Rx prednisone 20 mg tablet 20 mg PO DAILY 5 days #5 tabs 04/11/24 Rx fluticasone fur. 100 mcg-umeclid See Rx Instructions .Route 04/19/24 06/29/24 Rx 62.5 mcg-vilant 25 mcg .COMPLEX #60 ea inhalat.powder (Trelegy Ellipta) valsartan 40 mg tablet (Diovan) 20 mg (1/2 x 40 mg) PO QAM #45 tabs 04/21/24 06/29/24 Rx ezetimibe 10 mg tablet (Zetia) 10 mg PO QAM #90 tabs 05/06/24 06/29/24 Rx allopurinol 100 mg tablet 100 mg PO DAILY 06/29/24 06/29/24 History verapamil 120 mg 24 hr 120 mg PO DAILY 06/29/24 06/29/24 History capsule,extended release Past Med/Surg History Problem List (Updated 06/29/24 @ 06:16 by Yee Resendiz DO) Atrial fibrillation Anemia (Acute) Cutaneous lymphoma H/O right inguinal hernia repair (05/04/23) Open Right Inguinal Hernia Repair(Right) - Benjamin Duvall MD, FACS Encounter for pre-operative examination Stented coronary artery Chronic osteoarthritis (Acute) Pulmonary emphysema (Acute) Vitamin D deficiency (Chronic) HTN (hypertension) Lower urinary tract symptoms (LUTS) (Chronic) Gout Gross hematuria Urinary urgency Pericardial effusion Painful total knee replacement, left Chest pain (Acute) Right inguinal hernia CAD (coronary artery disease) (Chronic) S/p stents x4 (2015) to LAD S/p stent (2019) to D1 Known occluded distal LAD per cardio records On Brillinta Ischemic cardiomyopathy EF 40-45% per 01/2022 ECHO [place] [facility] [place] Cerebral aneurysm (Acute) Followed by Neuro- only follows PRN with neurology- due for repeat head MRA 08/2024 Head MRA 09/26/21= "Unchanged appearance of 2 small carotid artery aneurysms as detailed above. These measure up to 2.5 mm." Hemiplegic migraine No recent issues Chronic obstructive pulmonary disease Dyslipidemia (Chronic) CKD (chronic kidney disease) stage 3, GFR 30-59 ml/min Laryngopharyngeal reflux Well controlled and stable Pancreatic cyst (Chronic) Stable per 01/31/21 Abdomen/Pelvis CT scan Medical History Lyme disease hx - ~. no recent issues History of COVID-30 October 2022 -> generalized weakness, joint pain, cough, and nausea. treated inpatient at [facility]. 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 Solitary pulmonary nodule 12/23/21 CT findings "stable" per pulmonary workload note 12/26/21 Hypertension Cancer of lung 1998 s/p lobectomy/chemo/xrt STEMI (ST elevation myocardial infarction) 2018 Surgical History H/O left knee surgery Left knee polyexchange tibial component (02/2022 at [facility] with Dr Mcdowell) H/O sinus surgery nasal cautery History of arthroscopy of left shoulder History of esophagogastroduodenoscopy (EGD) with dilation of esophagus - 10/30/22 S/P laparoscopic cholecystectomy Lap samy (01/28/21): Grade view 1, MAC#4, ETT 7.5 at [facility] History of excision of mass Neck (2017) x2 History of colonoscopy S/P excision of lipoma Hx of cataract surgery R/L S/P lobectomy of lung Left (February 1999 at [facility] [place]) d/t lung ca S/P total knee arthroplasty Left S/P appendectomy History of cardiac catheterization S/p stents x4 (2015) S/p stent (2018) to D1 Known occluded distal LAD per cardio records Family History Brother Cancer Hypertension Sister Cancer Hypertension Diabetes Mother Hypertension Diabetes Unknown Coronary heart disease Father Coronary heart disease Daughter Breast cancer Other Lung cancer Myocardial infarction Denies family history of Ovarian cancer Prostate cancer Hearing loss No family history of adverse response to anesthesia No family history of bleeding disorder Heart disease Allergies Colorectal cancer Stroke Asthma Social History Smoking Status: Former smoker Tobacco Type: Cigarettes Age Started Using Tobacco: 23; Age Quit Using Tobacco: 51; packs per day: 0.5; Second Hand Exposure: No; Do You Dip or Chew Tobacco: No; Hx Alcohol Use: No Hx Substance Use: No Preferred Language: Czech Communication Ability: Effective Visual Impairment: No Limitations 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: Use of Hearing Aid 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 Required: No Beliefs That Will Affect Care: None marital status: Current Living Situation: Spouse current occupational status: retired current occupation: retired How many Children do You have: 1 Feels Safe at Home: Yes Childhood Exposure to Second-Hand Smoke: Yes Diet: regular caffeine: Yes (2 cups of coffee daily ) Dental Care, Regularly: No Physical Activity Frequency: Does not Exercise Seatbelt Use: always Sunscreen Use: Yes (sometimes) Do you think of yourself as: straight/heterosexual Assistive Devices: Denture - Upper, Denture - Lower and Hearing Aid - Bilateral Review of Systems Review of Systems: All systems reviewed & are unremarkable except as noted in HPI & below Physical Exam Physical Exam: General: patient resting comfortably, NAD, non-toxic in appearance, AA&O x 4 Skin: warm, dry, intact, no rashes or lesions HEENT: NC/AT, PERRL, EOMI, anicteric sclera, conjunctiva without injection, external ear normal to inspection and nontender, nares patent, moist mucus membranes, dentition intact, no oropharyngeal lesions, neck supple, trachea midline, no LAD, no thyromegaly, no JVD Heart: +S1/S2, irregularly irregular, no m/r/g Lungs: equal air entry bilaterally, no rales/rhonchi/wheezes Abd: +BS, soft, NT/ND, no masses/organomegaly/ascites Ext: warm, 2+ pulses in UE/LE bilaterally, no clubbing/cyanosis or edema Neuro: nonfocal, patient AA&O x 4, speech intact, no facial droop, moving all extremities on command with equal strength 5/5 Results & Data Results & Data Vital Signs (Past 12 Hours) Vital Signs Temp Pulse Pulse Resp BP BP Pulse Ox 06/29/24 05:00 96 H 18 93/62 L 98 06/29/24 04:52 89 18 98 06/29/24 04:52 95 H 18 98/54 L 98 06/29/24 04:52 98 06/29/24 04:48 106 H 24 96 06/29/24 04:45 98/54 L 06/29/24 04:45 98/54 L 06/29/24 04:43 94/70 L 06/29/24 04:37 103 H 06/29/24 04:35 98 H 103/76 99 06/29/24 04:32 36.4 C L 99 H 20 103/76 98 O2 Del Method 06/29/24 05:00 06/29/24 04:52 Room Air 06/29/24 04:52 Room Air 06/29/24 04:52 06/29/24 04:48 06/29/24 04:45 06/29/24 04:45 06/29/24 04:43 06/29/24 04:37 06/29/24 04:35 06/29/24 04:32 Room Air Laboratory Results Laboratory Results WBC 6.21 K/ul (4.8-10.8) 06/29/24 04:40 RBC 4.41 M/uL (4.70-6.10) L 06/29/24 04:40 Hgb 11.1 g/dl (14.0-18.0) L 06/29/24 04:40 Hct 34.4 % (42.0-52.0) L 06/29/24 04:40 MCV 78.0 fL (80.0-100.0) L 06/29/24 04:40 MCH 25.2 pg (25.0-34.0) 06/29/24 04:40 MCHC 32.3 g/dL (32.0-36.0) 06/29/24 04:40 RDW Std Deviation 50.7 fL (36.4-46.3) H 06/29/24 04:40 RDW Coeff of Falguni 17.9 % (11.5-14.5) H 06/29/24 04:40 Plt Count 210 K/uL (130-400) 06/29/24 04:40 MPV 11.7 fL (9.4-12.4) 06/29/24 04:40 Immature Gran % (Auto) 0.3 % 06/29/24 04:40 Neut % (Auto) 62.6 % 06/29/24 04:40 Lymph % (Auto) 21.3 % 06/29/24 04:40 [place] % (Auto) 11.8 % 06/29/24 04:40 Eos % (Auto) 2.6 % 06/29/24 04:40 Baso % (Auto) 1.4 % 06/29/24 04:40 Neut # (Auto) 3.89 K/uL (1.40-6.50) 06/29/24 04:40 Lymph # (Auto) 1.32 K/uL (1.20-3.40) 06/29/24 04:40 [place] # (Auto) 0.73 K/uL (0.11-0.59) H 06/29/24 04:40 Eos # (Auto) 0.16 K/uL (0.00-0.50) 06/29/24 04:40 Baso # (Auto) 0.09 K/uL (0.00-0.20) 06/29/24 04:40 Immature Gran # (Auto) 0.02 K/uL (0.01-0.20) 06/29/24 04:40 Sodium 138 mmol/L (136-145) 06/29/24 04:40 Potassium 4.0 mmol/L (3.5-5.1) 06/29/24 04:40 Chloride 107 mmol/L (98-107) 06/29/24 04:40 Carbon Dioxide 26 mmol/L (21-32) 06/29/24 04:40 Anion Gap 5 (3-11) 06/29/24 04:40 BUN 20 mg/dl (6-23) 06/29/24 04:40 Creatinine 1.22 mg/dl (0.6-1.4) 06/29/24 04:40 Est Cr Clr Drug Dosing 46.6 ml/min 06/29/24 04:40 Est GFR ( Amer) 61.4 ml/min 06/29/24 04:40 Est GFR (Non-Af Amer) 53.0 ml/min 06/29/24 04:40 BUN/Creatinine Ratio 16.4 (10-20) 06/29/24 04:40 Glucose 99 mg/dl (70-99(Fasting)) 06/29/24 04:40 Calcium 9.3 mg/dl (8.6-10.3) 06/29/24 04:40 Phosphorus 2.9 mg/dl (2.5-4.9) 06/29/24 04:40 Magnesium 2.0 mg/dl (1.7-2.4) 06/29/24 04:40 Total Bilirubin 1.2 mg/dl (0.2-1.0) H 06/29/24 04:40 AST 14 U/L (13-39) 06/29/24 04:40 ALT 10 U/L (7-52) 06/29/24 04:40 Alkaline Phosphatase 69 U/L (34-104) 06/29/24 04:40 Troponin I High Sens 15.7 pg/ml (0-20) 06/29/24 04:40 Total Protein 6.9 gm/dl (6.0-8.3) 06/29/24 04:40 Albumin 4.1 gm/dl (3.4-5.0) 06/29/24 04:40 Globulin 2.8 gm/dl (2.5-4.0) 06/29/24 04:40 Albumin/Globulin Ratio 1.5 (0.9-2) 06/29/24 04:40 Lipase 63 U/L (11-82) 06/29/24 04:40 ECG Additional Comments: EKG with atrial fibrillation at 110 bpm, no acute ischemic changes Code Status & VTE Plan VTE Prophylaxis Plan VTE Prophylaxis will be ordered: Yes PG Care Time/CCT Total # of Minutes Spent Total Time Spent with Patient: Total time spent is greater than 50% in coordination of care (as documented) at patient's floor/unit and/or counseling patient: Coding Level of Care Code 16707 INT INP/OBS CARE 3/75MIN Diagnoses Chest pain R07.9 Chest pain type: unspecified CAD (coronary artery disease) I25.119 Associated angina: with unspecified angina Coronary Disease-Associated Artery/Lesion type: unspecified vessel or lesion type [place] vs. transplanted heart: [place] heart Atrial fibrillation I48.91 (1) Chest pain Chest pain type: unspecified Qualified Code(s): R07.9 - Chest pain, unspecified (2) CAD (coronary artery disease) Associated angina: with unspecified angina Coronary Disease-Associated Artery/Lesion type: unspecified vessel or lesion type [place] vs. transplanted heart: [place] heart Qualified Code(s): I25.119 - Atherosclerotic heart disease of [place] coronary artery with unspecified angina pectoris
--- NOTE | 2024-06-29 06:54 | XRay Report ---
XR chest 1V portable CLINICAL HISTORY: Chest pain, nonspecific. COMPARISON STUDY: Chest CT December 23, 2021. Chest radiograph December 11, 2022. PET/CT of August 19 3. FINDINGS: Stable postoperative and post radiation change within the left lung is noted with expected volume loss. Left perihilar density appears unchanged. This favors postradiation change. There is no pneumothorax or pleural the effusion. Elevation of the right hemidiaphragm is unchanged. Emphysema. C ardiomediastinal silhouette is stable. No evidence for pulmonary edema. IMPRESSION: No acute cardiopulmonary findings. Stable posttherapy changes within the left lung. ACT 112: Negative or not required by law. Electronically signed by: Dalton Moreno M.D. 06/29/2024 6:52 AM
[2024-06-29] MEDS ORDERED: NITROGLYCERIN SL 0.4 MG/TAB TAB SL PRN ×2 (08:13→10:32)
--- NOTE | 2024-06-29 08:44 | Hospitalist Progress Note ---
Date of Service June 29, 2024 Assessment & Plan (1) Chest pain: Plan: 88yo male with known CAD s/p multiple stents (6 years ago), h/o 2 STEMIs, known distal occlusion of LAD presenting with chest pain, substernal and radiation to the left arm and back, c/o dizziness. Displaying tenderness to palpation of the chest. Initial troponin 15.7, trending down EKG with new onset atrial fibrillation, no signs ST segment elevation. Differential to include ACS, musculoskeletal, GI, possible PE - patient with new AF, borderline low BP, h/o prior provoked PE -Initial troponin 15.7, repeat at 12.9, then 13.1 on first and second trends. -Discontinue home ASA and Brillinta morning of 06/30/2024 then start Plavix that morning per dosing orders. -Nitro PRN chest pain as blood pressure allows -Reviewed repeat EKG which continues to display rate controlled atrial f ibrillation per my review. No signs of STEMI. -TTE 06/29/2024 with EF 35 to 40%, small pericardial effusion, moderate pulmonary hypertension. -D-dimer 930ug/L; age correction completed. -Discussed findings with cardiology; Cardiology agrees this is likely musculoskeletal in nature. CAD - Telemetry - Hold Valsartan due to low BP. Stop Carvedilol Possibly GI in nature - Trailed GI cocktail without significant relief of symptoms. (2) Atrial fibrillation: Plan: New onset atrial fibrillation on presenting EKG. -Pending TSH, Mg 2.0 -TTE 06/29/2024 EF 35 to 40%, small pericardial effusion, moderate pulmonary hypertension. -Currently on heparin for anticoagulation; stop heparin at 1700 and start Apixaban at 1700 on 06/29/2024. -Borderline low BP; rate control with Toprol XL, stop carvedilol. 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 -Discontinue Carvedilol 2/2 borderline low BP -Holding Valsartan for now Complicated Migraine -Hold Verapamil for now given low blood pressure Hyperlipidemia -Continue Zetia DVT Prophylaxis: Anticoagulated with DOAC and clopidogrel, discontinued heparin Supervising Physician Co-Signing Physician Notes I have reviewed vital signs, chart notes, labs and imaging. I have personally seen, evaluated and examined the patient. I have also discussed the management of the patient with the PEDRO and I agree with the exam findings documented in the history and physical examination and the documented assessment and plan unless otherwise stated below. Mr. Singleton comes in with left-sided chest pain and new onset of atrial fibrillation. Serial troponins have been negative and EKGs and TTE are reassuring with no evidence of acute ischemic changes or new wall motion abnormalities. We consulted Dr. Sahu his test center administrator and I discussed the plan of care with him. Mr. Singleton's pain is significantly reproducible on palpation of the left chest wall and I think it is musculoskeletal in etiology. He does not recall any actions to cause strain in this area or injury however he has been coughing. Based on his stroke risk anticoagulation for atrial fibrillation is indicated. we will transition his heparin drip to apixaban. His blood pressures have actually been normal systolic around 120, he has several low BPs in the 90s recorded however his bedside nurse tells me he has tendency to flex 1 automatic cuff is cycling and has had inaccurate readings. When she checks it carefully it has been normal. He has no hypoxia or dyspnea and I think pulmonary embolism is unlikely given the reproducible nature of the pain, lack of hypoxia dyspnea or signs/sx of DVT. There are a few caveats - his age- adjusted D- D-dimer is slightly and he does have some worsening of pulmonary hypertension compared to prior TTE. He is going to be anticoagulated regardless so I do not feel it is worse the potential renal risk to proceed with CT angiogram of the chest since it would not electronic data interchange specialist significantly. For his rate control we will replace carvedilol with extended release metoprolol for better rate control and less hypotensive effect. If he is feeling well with good rate control he may be able to discharge as soon as tomorrow Subjective Pt seen in ED with at bedside, continues to have chest pain described as sharp in nature, rating 5/10 on the pain scale. States that the pain worsens when taking a deep breath or he will randomly feel a shooting pain. No SOB, calf tenderness, lightheadedness, or dizziness. Review of Systems Respiratory: + pain on inspiration; no dyspnea Cardiovascular: + chest pain; no radiating jaw, neck or arm pain, no dyspnea, no lightheadedness and no calf pain Gastrointestinal: no abdominal pain, no nausea, no vomiting and no change in bowel habits Physical Exam Respiratory: normal respiratory effort, lungs clear to auscultation Cardiovascular: RRR, no murmur, no edema Tenderness to palpation just below breast, located mainly at lateral left side of chest. Gastrointestinal (Abdomen): normal bowel sounds, soft, nontender, no hepatosplenomegaly Results & Data Results & Data Vital Signs (Past 12 Hours) Vital Signs Temp Pulse Pulse Resp BP BP Pulse Ox 06/29/24 08:34 96/77 L 06/29/24 08:00 81 22 114/70 100 06/29/24 06:20 83 18 117/66 99 06/29/24 05:45 86 22 92/66 L 98 06/29/24 05:26 84 20 97/59 L 99 06/29/24 05:00 96 H 18 93/62 L 98 06/29/24 04:52 89 18 98 06/29/24 04:52 95 H 18 98/54 L 98 06/29/24 04:52 98 06/29/24 04:48 106 H 24 96 06/29/24 04:45 98/54 L 06/29/24 04:45 98/54 L 06/29/24 04:43 94/70 L 06/29/24 04:37 103 H 06/29/24 04:35 98 H 103/76 99 06/29/24 04:32 36.4 C L 99 H 20 103/76 98 O2 Del Method 06/29/24 08:34 06/29/24 08:00 Room Air 06/29/24 06:20 Room Air 06/29/24 05:45 06/29/24 05:26 06/29/24 05:00 06/29/24 04:52 Room Air 06/29/24 04:52 Room Air 06/29/24 04:52 06/29/24 04:48 06/29/24 04:45 06/29/24 04:45 06/29/24 04:43 06/29/24 04:37 06/29/24 04:35 06/29/24 04:32 Room Air Laboratory Results Abnormal lab results 06/29/24 06/29/24 Range/Units 04:40 10:46 RBC 4.41 L (4.70-6.10) M/uL Hgb 11.1 L (14.0-18.0) g/dl Hct 34.4 L (42.0-52.0) % MCV 78.0 L (80.0-100.0) fL RDW Std Deviation 50.7 H (36.4-46.3) fL RDW Coeff of Falguni 17.9 H (11.5-14.5) % [place] # (Auto) 0.73 H (0.11-0.59) K/uL D-Dimer 930 H* (0-500) ug/L FEU Total Bilirubin 1.2 H (0.2-1.0) mg/dl Diagnostic Findings Chest X-Ray 06/29/24 04:31 XR chest 1V portable CLINICAL HISTORY: Chest pain, nonspecific. COMPARISON STUDY: Chest CT December 23, 2021. Chest radiograph December 11, 2022. PET/CT of August 19, 2023. FINDINGS: Stable postoperative and post radiation change within the left lung is noted with expected volume loss. Left perihilar density appears unchanged. This favors postradiation change. There is no pneumothorax or pleural the effusion. Elevation of the right hemidiaphragm is unchanged. Emphysema. Cardiomediastinal silhouette is stable. No evidence for pulmonary edema. IMPRESSION: No acute cardiopulmonary findings. Stable posttherapy changes within the left lung. ACT 112: Negative or not required by law. Electronically signed by: Dalton Moreno M.D. 06/29/2024 6:52 AM (1) Chest pain Chest pain type: unspecified Qualified Code(s): R07.9 - Chest pain, unspecified
[2024-06-29] MEDS ORDERED: ALUMINUM/MAGNESIUM SUSP 30 ML UDC PO PRN (08:57)
[2024-06-29] MEDS: ALUMINUM/MAGNESIUM SUSP 30 ML UDC PO STA (10:30)
[2024-06-29] MEDS ORDERED: ACETAMINOPHEN 325 MG TAB PO PRN (10:32)
[2024-06-29] MEDS ORDERED: NON-FORMULARY MEDICATION (Fluticasone-Umeclidin-Vilanter [Trelegy Ellipta] 100-62.5-25 mcg SCH (10:32)
[2024-06-29] MEDS ORDERED: ONDANSETRON INJ 2 MG/ML 2 ML VIAL IV PRN (10:32)
--- OUTSIDE RECORDS SUMMARY | 2024-06-29 11:00 | External Medical Summary | Continuity of Care Document ---
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 Hx of skin malignancy(Discharge Diagnosis) - 06/15/24 Other Seborrheic Keratosis(Discharge Diagnosis) - 06/15/24 Actinic keratoses(Discharge Diagnosis) - 06/15/24 Cutaneous T-cell lymphoma, unspecified, unspecified site(Final) - Disorder of the skin and subcutaneous tissue, unspecified(Final) - Personal history of other malignant neoplasm of skin(Final) - Other seborrheic keratosis(Final) - Actinic keratosis(Final) - Discharge Disposition: Home or Self Care Attending Physician: MD Barney Sara B Allergies, Adverse Reactions, Alerts Substance Criticality Severity Reaction Reaction Severity Status penicillins Hives Active Keflex Hives Active IVP dye Hives Active Assessment and Plan Extracted from: Title:Dermatology Office Visit Note Author:Yoli renteria MD, Sara B Date:06/15/24 1.Hx of skin malignancy Warning signs of skin cancer were reviewed. Sun protection reviewed. Follow-up in 6 months, sooner for any changing or growing lesions or acute concerns. I also recommended monthly self skin exams 2.Other Seborrheic Keratosis Chronic, within normal limits 3.Actinic keratoses x4. Lesions treated with liquid nitrogen. Patient aware of possibility of infection, hypo or hyperpigmentation or scarring and did elect to proceed. They should inform me of any problems or recurrences post treatment. Care sheet given. 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 He is aware of the risk of progression as was discussed by Dr. Bernabe Johns in the past. As it has been a year since his last CBCand flow cytometry I have ordered those again today as well as [facility]. I have asked the patient to get a jockstrap and to restart his light parker from square 1 with whole-body light. I feel it is better to do this now than to wait further as it looks like he will likely have disease on the lower extremities and buttocks as well. I have also asked him to start some clobetasol to the patch on his right upper thigh hip area. This was all written down for him. He states he understands how to restart the light from scratch so he does not burn the lower extremities and will work it up. I will see him back in 3 months but he knows to call with patches that do not respond or anything that develops quickly. Immunizations Given and Recorded Vaccine Date Status Refusal Reason influenza virus vaccine, H1N1 07/12/15 Recorded pneumococcal 13-valent vaccine 12/10/14 Recorded varicella virus vaccine 10/12/11 Recorded Medications albuterol CFC free 90 mcg/inh MDI See Instructions, Disp# 18 g, Refills: 11, inhale 2 puffs by mouth and INTO THE LUNGS four times a day if needed for wheezing, Pharmacy: [id number] Start Date: 06/07/21 Status: Ordered allopurinol 100 mg oral tablet Start: 08/04/23 1:55:00 PM EDT, 1 tab, PO, Daily Start Date: 08/04/23 Status: Ordered aspirin Start: 10/31/15 10:14:00 AM EST, 81 mg =, PO, Daily Start Date: 10/31/15 Status: Ordered Brilinta (ticagrelor) 90 mg oral tablet Start: 08/04/23 1:56:00 PM EDT, bid Start Date: 08/04/23 Status: Ordered carvedilol 3.125 mg oral tablet Start: 10/31/15 10:15:00 AM EST, 1 tab, PO, bid Start Date: 10/31/15 Status: Ordered clobetasol 0.05% topical ointment Start: 08/24/23 10:03:00 AM EST, 1 appl, topical, bid, Disp# 45 g, Refills: 3, Twice daily to worstareas, and small bumps in R armpit/arm area, Pharmacy: [facility][id number] Start Date: 08/24/23 Status: Ordered ketoconazole 2% topical cream Start: 11/17/17 8:51:00 AM EST, 1 appl, topical, bid, Disp# 30 g, Refills: 2, To right hand for scaling BID 2 weeks, can repeat as needed, Pharmacy: [facility]- [address] [place] [address] Start Date: 11/17/17 Status: Ordered nitroglycerin 0.4 mg sublingual tablet Start: 10/14/18 9:58:00 AM EST, 1 tab, SL, q5min, Disp# 25 tab, PRN: as needed for chest pain Start Date: 10/14/18 Status: Ordered pantoprazole 40 mg oral delayed release tablet Start: 04/03/21 1:59:00 AM EDT, See Instructions, Disp# 90 each, Refills: 3, take 1 tablet by mouth once daily, [facility]acy: [facility] [place] [address] Start Date: 04/03/21 Status: Ordered Plavix 75 mg oral tablet Start: 04/03/21 2:24:00 PM EDT, 1 tab, PO, ONCE, Disp# 1 tab, other Start Date: 04/03/21 Status: Ordered predniSONE 10 mg oral tablet Start: 11/26/23 10:54:00 AM EST, 9 each, TAKE 2 TABLETS BY MOUTH ONCE DAILY FOR 3 DAYS THEN 1 DAILY FOR 3 DAYS Start Date: 11/26/23 Status: Ordered Topiragen 25 mg oral tablet Start: 10/14/18 9:59:00 AM EST, 1 tab, PO, qhs Start Date: 10/14/18 Status: Ordered Trelegy Ellipta 100 mcg-62.5 mcg-25 mcg/inh inhalation powder Start: 08/04/23 1:55:00 PM EDT, 1 puff, inhaled, Daily Start Date: 08/04/23 Status: Ordered triamcinolone 0.1% topical ointment Start: 08/06/23 9:39:00 AM EDT, 1 appl, topical, bid, Disp# 454 g, Refills: 2, Apply twice daily asneeded to rash, Pharmacy: [id number] Start Date: 08/06/23 Status: Ordered verapamil 180 mg/24 hours oral capsule, extended release Start: 10/14/18 10:00:00 AM EST, 1 cap, PO, Daily Start Date: 10/14/18 Status: Ordered Vitamin D3 1000 intl units oral tablet Start: 10/14/18 9:57:00 AM EST, 1 tab, PO, bid Start Date: 10/14/18 Status: Ordered Xarelto 20 mg oral tablet Start: 04/03/21 2:23:00 PM EDT, 1 tab, PO, qPM, Disp# 30 tab, other Start Date: 04/03/21 Status: Ordered Mental Status 06/15/24 Barriers to Learning one year None evide nt Mandatory Health Literacy Documentation Yes Health Literacy Communication Barriers N ever Primary Language Irish Problem List Condition Confirmation Course Effective Dates Status H ealth Status Informant Actinic keratosis Confirmed Active Basal cell carcinoma of skin Confirmed Active Epistaxis Confirmed Active Changing skin lesion Confirmed Active Cutaneous T-cell lymphoma Confirmed Active Tinea Confirmed Active History of malignant neoplasm of skin Confirmed Active Inflamed seborrheic keratosis Confirmed Active Lung cancer, chemo/rt post lulresx for adeno 1998 Confirmed Active Neoplasm of uncertain behavior of skin Confirmed Active 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 Pulmonary embolus, right Confirmed Active Senile hyperkeratosis Confirmed Active Diagnosis Diagnosis Type Effective Dates Health Status Clinical Service Informant Hx of skin malignancy Discharge Diagnosis 06/15/24 Other Seborrheic Keratosis Discharge Diagnosis 06/15/24 Actinic keratoses Discharge Diagnosis 06/15/24 Cutaneous T-cell lymphoma Discharge Diagnosis 06/15/24 Non-Specified Procedures Procedure Date Related Diagnosis Body Site Status Shave biopsy 07/24/23 Completed Shave biopsy and cauterizati on of skin 1 05/05/16 Completed Stent placement 2 09/04/15 Complet ed Hypotension 3 07/26/15 Completed Catheter procedure 4 07/09/15 Comp leted Heart attack 07/06/15 Completed Stent placement 5 07/06/15 Complet ed Shave biopsy and cauterization of skin 06/27/15 Completed Shave biopsy 04/30/15 Completed Shave biopsy 12/28/13 Completed Excision 07/13/13 Completed mohs surgery 6 2012 Completed Bronchoscopy Completed Colonoscopy Completed Lobectomy Completed Shave biopsy 7 Completed Shave biopsy Completed Shave biopsy and cauterizati on of skin 8 Completed Stent placement 9 Complet ed 1left neck 2catheritization for two stent placement. 3hypotensive event resulting in hospitalization for one night 4exploratory 5two stents placed initially 6central forehead and upper lip 7x1 8x2 9November 2014 Results Laboratory List Name Date Complete Blood Count w Differential (CBC ,DIFFH) 06/15/24 Comprehensive Metabolic Panel (COMP META B PANEL) 06/15/24 Most recent to oldest [Reference Range]: 1 eGFR CKD-EPI [>60 mL/min/1.73 m2] 57 mL/ min/1.73 m2 1 *LOW* (06/15/24 9:34 AM) Estimated CrCl 46.82 mL/min (06/15/24 10:20 AM) MPV [9.0-12.2 fL] 11.7 fL (06/15/24 9:34 AM) Immature Gran% 0.6 % (06/15/24 9:34 AM) Neut% 62.8 % (06/15/24 9:34 AM) Lymph% 20.2 % (06/15/24 9:34 AM) [place]% 12.3 % (06/15/24 9:34 AM) Baso% 1.2 % (06/15/24 9:34 AM) Eos% 2.9 % (06/15/24 9:34 AM) Immat Gran, Abs [0-0.4 K/uL] 0.03 K/uL (06/15/24 9:34 AM) Neut, Abs [2.0-7.7 K/uL] 3.05 K/uL (06/15/24 9:34 AM) Lymph, Abs [1.0-3.4 K/uL] 0.98 K/uL *LOW* (06/15/24 9:34 AM) [place], Abs [0-1.0 K/uL] 0.60 K/uL (06/15/24 9:34 AM) Baso, Abs [0-0.1 K/uL] 0.06 K/uL (06/15/24 9:34 AM) Eos, Abs [0-0.5 K/uL] 0.14 K/uL (06/15/24 9:34 AM) Type of Diff: AUTO *Unknown* (06/15/24 9:34 AM) RDW [11.5-14.2 %] 18.4 % *HI* (06/15/24 9:34 AM) Anion Gap [5-14 mmol/L] 6 mmol/L (06/15/24 9:34 AM) Alb [3.5-5.0 g/dL] 4.0 g/dL (06/15/24 9:34 AM) Alk Phos [38-126 unit/L] 72 unit/L (06/15/24 9:34 AM) ALT [<50 unit/L] 16 unit/L (06/15/24:34 AM) AST [15-46 unit/L] 23 unit/L (06/15/24 9:34 AM) BUN [7-20 mg/dL] 19 mg/dL (06/15/24:34 AM) Ca [8.4-10.2 mg/dL] 8.9 mg/dL (06/15/24 9:34 AM) Cl- [96-107 mmol/L] 108 mmol/L *HI* (06/15/24 9:34 AM) HCO3 [22-30 mmol/L] 27 mmol/L (06/15/24 9:34 AM) Cret [0.70-1.30 mg/dL] 1.22 mg/dL (06/15/24 9:34 AM) Glu [74-106 mg/dL] 89 mg/dL (06/15/24 9:34 AM) Hct [39-48 %] 36.9 % *LOW* (06/15/24 9:34 AM) Hgb [13.0-17.0 g/dL] 11.0 g/dL *LOW* (06/15/24 9:34 AM) K [3.5-5.1 mmol/L] 4.0 mmol/L (06/15/24 9:34 AM) MCH [28-33 pg] 24.8 pg *LOW* (06/15/24 9:34 AM) MCHC [32-36 g/dL] 29.8 g/dL *LOW* (06/15/24 9:34 AM) MCV [81-96 fL] 83.1 fL (06/15/24 9:34 AM) Na [137-145 mmol/L] 141 mmol/L (06/15/24 9:34 AM) Plts [150-350 K/uL] 183 K/uL (06/15/24 9:34 AM) RBC [4.40-5.60 M/uL] 4.44 M/uL (06/15/24 9:34 AM) T Bili [0.2-1.3 mg/dL] 1.6 mg/dL *HI* (06/15/24 9:34 AM) Prot [6.3-8.2 g/dL] 7.2 g/dL (06/15/24 9:34 AM) WBC [4.0-10.4 K/uL] 4.86 K/uL (06/15/24 9:34 AM) 1Result Comment: Testing Performed By: Dept of Pathology [facility] [address], [facility] [address], [place] [address] Social History Social History Type Response Smoking Status Never smoked cigaret torrey Sex Male Sex Representation Male (finding) Dermatology Outpatient Note * MD Ector, Fernanda B: PERFORM Event Display: Dermatology Outpt Note Authored Date: [id number] Chief Complaint skin check spot roght ear and right cheek History of Present Illness The patient is a pleasant 88-year-old male who I have not seen for 6- 1/2 years. He has been followed by Dr. Ferro and Dr. Blakely as well as Dr. Willy Johns in our department for the last year and a half. 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 He had some atypical cells in his sensory flow from last year that I reviewed today but not enough to call it B1 disease. I have reviewed Dr. Ferro's notes Dr. Willy Moulton's notes in Dr. Blakely's notes as well as the PET scan result his blood tests and the photographs today. The patient has been treating his disease with light treatment but only from the waist up. He mentions today there is a patch on his right upper thigh he has noticed that is red and sore. He denies headaches fever sweats chronic chest pain cough or shortness of breath with only occasional episodes of such. 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 He denies belly pain nausea vomiting diarrhea or unintentional weight loss It has been a year since his last CBC says reflow was done on. He is not sure about the millijoules on his current light box at home but he uses it twice a week. He got burned once and only once but knows how to change the light treatments with getting burned. The patient has a history of multiple nonmelanoma skin cancers. He points out scaly areas on his right lateral cheek his right ear today. Physical Exam Gen: Well appearing patient, no acute distress. Alert and oriented x3. Good mood. Skin examination completed of face, eyelids, scalp, hair, lips, ears, neck, chest, back, abdomen,upper and lower extremities bilaterally including hands, feet, fingers and toes, fingernails and toenails, pt declinedand groin.The patient has no evidence of recurrent skin cancer. He has 2 actinic keratoses the right denominational right ear and 2 on the posterior scalp. No neck supraclavicularposterior occipital axillary or inguinal lymphadenopathy. There is a light pink patch on his leftupper chest that showed him in the mirror. He said that is residual from treatment of his lung cancer with radiation in the past and is always present. From the waist up there is no evidence ofc utaneous T-cell lymphoma or nodularity. There is some pinkness and scaling on his central and posterior buttock areaas well as a more indurated patch that is about quarter sizeon his right upper thigh/hip area. He has not been treating these with anything. He has many seborrheic keratoses. Assessment/Plan 1.Hx of skin malignancy Warning signs of skin cancer were reviewed. Sun protection reviewed. Follow-up in 6 months, sooner for any changing or growing lesions or acute concerns. I also recommended monthly self skin exams 2.Other Seborrheic Keratosis Chronic, within normal limits 3.Actinic keratoses x4. Lesions treated with liquid nitrogen. Patient aware of possibility of infection, hypoor hyperpigmentation or scarring and did elect to proceed. They should inform me of any problems or recurrences post treatment. Care sheet given. 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 He isaware of the risk of progression as was discussed by Dr. Bernabe Johns in the past. As it has been ayear since his last CBCand flow cytometry I have ordered those again today as well as [facility]. I have asked the patient to get a jockstrap and to restart his light parker from square 1 with whole-body light. I feel it is better to do this now than to wait further as it looks like he will likely have disease on the lower extremities and buttocks as well. I have also asked him to start some clobetasol to the patch on his right upper thigh hip area. This was all written down for him. He states he understands how to restart the light from scratch so he does not burn the lower extremities and will work it up. I will see him back in 3 months but he knows to call with patches that do not respond or anything that develops quickly. 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 Pulmonary embolus, right Senile hyperkeratosis Tinea Procedure/Surgical History Shave biopsy| Service Date: 07/24/2023Shave biopsy and cauterization of skin| Service Date: 05/05/2016Stent placement| Service Date: 09/04/2015Hypotension| Service Date: 07/26/2015Catheter procedure| Service Date: 07/09/2015Stent placement| Service Date: 07/06/2015Heart attack| Service Date: 07/06/2015Shave biopsy and cauterization of skin| Service Date: 06/27/2015Shavebiopsy| Service Date: 04/30/2015Shave biopsy| Service Date: 12/28/2013Excision| Service Date:07/13/2013[facility] surgery| Service Date: 2012Stent placementColonoscopyBronchoscopyShave biopsyShave biopsy and cauterization of skinShave biopsyLobectomy Medications albuterol(albuterol CFC free 90 mcg/inh MDI), See Instructions allopurinol(allopurinol 100 mg oral tablet), 100 mg= 1 tab, PO, Daily aspirin, 81 mg, PO, Daily carvedilol(carvedilol 3.125 mg oral tablet), 3.125 mg= 1 tab, PO, bid cholecalciferol(Vitamin D3 1000 intl units oral tablet), 1000 Int_Unit= 1 tab, PO, bid clobetasol topical(clobetasol 0.05% topical ointment), 1 appl, topical, bid, 3 refills clopidogrel(Plavix 75 mg oral tablet), 75 mg= 1 tab, PO, ONCE fluticasone/umeclidinium/vilanterol(Trelegy Ellipta 100 mcg-62.5 mcg-25 mcg/inh inhalation powder),1 puff, inhaled, Daily ketoconazole topical(ketoconazole 2% topical cream), 1 appl, topical, bid, 2 refills nitroglycerin(nitroglycerin 0.4 mg sublingual tablet), 0.4 mg= 1 tab, SL, q5min, PRN pantoprazole(pantoprazole 40 mg oral delayed release tablet), See Instructions, 3 refills predniSONE(predniSONE 10 mg oral tablet) rivaroxaban(Xarelto 20 mg oral tablet), 20 mg= 1 tab, PO, qPM ticagrelor(Brilinta (ticagrelor) 90 mg oral tablet), bid topiramate(Topiragen 25 mg oral tablet), 25 mg= 1 tab, PO, qhs triamcinolone topical(triamcinolone 0.1% topical ointment), 1 appl, topical, bid, 2 refills verapamil(verapamil 180 mg/24 hours oral capsule, extended release), 180 mg= 1 cap, PO, Daily Allergies IVP dyeHives KeflexHives penicillinsHives Social History Smoking Status Never smoked cigarettes Electronic Signature on File CC: Ming Gupta DO [facility] [address] [facility] [address] [facility] [address] * CC: Juan F Lake MD [address] [place] [address] [address] [facility] [address] Electronically Reviewed/Signed by: Fernanda Barney MD Author Signature Dt/Tm:06/15/2024 09:33 AM Department of Dermatology [facility] Patient Care team information Care Team Personnel Name: MD Valles Rebecca Position: Physician - Pulmonary Med Member Role: Lifetime Relationship Address: [address] [place] [address] [address] [place], [place] [address] Name: DO Gupta Thomas Position: Referring Member Role: Primary Care Provider Address: [facility] [address] [facility] [address] [place] [address] Care Team Related Persons Name: ELSY PUGH"
[2024-06-29] MEDS: TICAGRELOR 90 MG TAB PO SCH (11:40)
[2024-06-29] MEDS: allopurinoL 100 MG TAB PO SCH (11:41)
[2024-06-29] MEDS: EZETIMIBE 10 MG TAB PO SCH (11:41)
[2024-06-29] MEDS: ASPIRIN 81 MG ECTAB PO SCH (11:41)
[2024-06-29] MEDS: LACTATED RINGER'S 1,000 ML IV SCH (11:41)
[2024-06-29] MEDS: HEPARIN SODIUM/DEXTROSE 25,000 UNITS/500 ML BAG IV SCH (11:43)
[2024-06-29 11:59] LABS: D Dimer 930 ug/L FEU (0-500)
[2024-06-29] MEDS: Heparin IV Adult Wt-Based Standard *NO* INITIAL Bolus Protocol IV STA (11:59)
[2024-06-29 12:11] LABS: Partial Thromboplastin Ratio 1.1; Partial Thromboplastin Time 30 Seconds (21-31)
--- NOTE | 2024-06-29 12:42 | XCELERA ---
[id number] \\[email or web address]\[id number]
[2024-06-29] MEDS: UMECLIDINIUM/VILANTEROL 62.5/25MCG 7 PUFFS/INHALER INH SCH (13:07)
[2024-06-29] MEDS: FLUTICASONE FUROATE 100MCG 14 PUFFS/INHALER INH SCH (13:07)
--- NOTE | 2024-06-29 14:06 | Cardiology Consultation ---
Date of Consultation June 29, 2024 Assessment & Plan (1) Chest pain: 2. Multivessel CAD -hx repeated LAD/diagonal interventions, known occluded distal LAD 3. Ischemic [id number]% 4. Atrial [id number] 5 5. Hypertension 6. Complicated migraine headaches 7. COPD/prior left lobectomy for lung CA 8. Dyslipidemiastatin intolerance 9. provoked PE in the setting of GI surgery 01/2021 10. Recurrent epistaxis 11. Small to moderate pericardial effusion 12. Dysphagiaimproved post esophageal dilation 10/2022 Seen today in the setting of recurrent chest pain/dyspnea. HS TropI negative/ECG unchanged. No significant new wall motion abnormalities on echo. Chest pain reproducible on exam. Very low suspicion current chest pain represents ACS. No need for additional ischemic cardiac testing. Suspect chest pain or musculoskeletal. Despite D-dimer/pulm hypertension relatively low suspicion for PE. Does have new atrial fibrillation but well rate controlled. Do not feel A-fib contributing to chest pain. Unclear if any relation to his recent shortness of breath. Will need anticoagulation long-term. Recommend transitioning heparin infusion to Eliquis 5 mg twice daily Plan on long-term dual therapy with Eliquis, clopidogrel. Stop Brilinta tonight. Start clopidogrel 75 mg daily tomorrow. Stop aspirin. Resume beta-gene, ARB as BP allows. If stable overnight okay from a cardiac standpoint with discharge tomorrow. Will arrange close follow-up. History of Present Illness Attending Physician: Ellen Sue MD History of Present Illness Mr. Singleton is a very pleasant 88 year old male with complex ischemic heart disease history well-known to me from outpatient setting and prior hospitalizations. Seen today in ED after presented with shortness of breath/chest pain. Last night woken up from sleep around 1 AM with shortness of breath, sharp left- sided chest pain to back and arm. Somewhat different than what he had with prior SD. Symptoms preceded by mild shortness of breath. Denies new cough/wheezing. No palpitations. No presyncope. No recent viral illness or other change to health. In ED noted to be in rate controlled atrial fibrillation. No dynamic ST changes, HS TropI negative. Chest x-ray clear. D-dimer mildly elevated at 930. Hemoglobin down from 11.7-11.1. Repeat echo today showed EF 35-40% with apical and septal/anteroseptal hypokinesis. Small pericardial effusion. Mild to moderate pulmonary hypertension and elevated CVP. Prior cardiac history: Patient with longstanding coronary artery disease with multiple prior stents to his LAD and first diagonal. Initial STEMI in June 2015. Most recent STEMI in September 2019 with occlusion just proximal to prior LAD stents treated with balloon angioplasty to LAD into first diagonal stents by Dr. Myers. Brief attempt made at intervention to known mid LAD [employer]. Some brief atrial tachycardia but otherwise hospital course uncomplicated. Repeat echo showed moderately reduced LV function, EF 35 to 40%. Readmitted October 2019 with chest pain. Echo showed small to moderate size pericardial effusion. LV function slightly improved. Started on colchicine for presumed pericarditis. Colchicine tapered off and chest pain resolved. Rehospitalized with acute onset chest pain 02/2020. Cardiac enzymes, EKG unchanged. Echocardiogram showed preserved LV function with no effusion. Symptoms thought to be GI in nature. Underwent laparoscopic cholecystectomy 01/[address] Duvall due to biliary colic. Return the day after discharge with pulmonary embolism, infarction. Started on Xarelto. Ticagrelor switched to clopidogrel and aspirin discontinued. Repeat echocardiogram showed unchanged LVEF 45 to 50% with distal anterior hypokinesis and apical akinesis. Mild AI. Normal RV size and function. Small pericardial effusion. Hospitalized 05/2021 in the setting of lower GI bleed. Hemoglobin stable. Underwent colonoscopy which showed diverticulosis, nonbleeding internal hemorrhoids. Xarelto discontinued. Transitioned back to Ticagrelor due to history of stent thrombosis on clopidogrel. Now followed by key filer Dr. Seymour in [place]. Repeat chest CT 12/2021 showed advanced emphysema similar to prior findings. Also was noted to have a small to moderate pericardial effusion. There were some question as to whether this was contributing to prior symptoms. Repeat echo 01/2022 showed stable small to medium pericardial effusion. Past medical history includes hypertension, COPD, complicated migraines and history of lung cancer status post lobectomy. Hospitalized 10/2022 with dysphagia and underwent esophageal dilation. 04/2023 underwent right inguinal hernia repair. Allergies Allergy/AdvReac Type Severity Reaction Status Date / Time cephalexin [From Keflex] Allergy Intermediate Hives Verified 03/31/24 11:14 Cephalosporins Allergy Intermediate Rash Verified 03/31/24 11:14 fluticasone Allergy Intermediate Rash Verified 03/31/24 11:14 Iodinated Contrast Media Allergy Intermediate Hives Verified 03/31/24 11:14 Penicillins Allergy Intermediate Rash Verified 03/31/24 11:14 pravastatin Allergy Intermediate myalgias Verified 03/31/24 11:14 salmeterol Allergy Mild Rash Verified 03/31/24 11:14 atorvastatin AdvReac Mild MUSCLE Verified 03/31/24 11:14 ACHES fluvastatin AdvReac Mild MUSCLE Verified 03/31/24 11:14 ACHES lisinopril AdvReac Mild Cough Verified 03/31/24 11:14 prednisone AdvReac Mild Unknown Verified 03/31/24 11:14 rosuvastatin AdvReac Mild MUSCLE Verified 03/31/24 11:14 ACHES Home Medications Medication Instructions Recorded Confirmed Type cholecalciferol (vitamin D3) 25 2,000 unit PO HS 06/25/18 03/31/24 History mcg (1,000 unit) capsule (Vitamin D3) zinc acetate 50 mg (zinc) capsule 50 mg PO QAM 03/23/20 03/31/24 History (Galzin) albuterol sulfate 90 mcg/actuation 2 puffs inhalation QID PRN Wheezing 06/12/20 03/31/24 History aerosol inhaler (ProAir HFA) aspirin 81 mg tablet,delayed 81 mg PO QAM 01/29/22 06/29/24 History release (Adult Aspirin Regimen) nitroglycerin 0.4 mg sublingual 0.4 mg sublingual Q5M PRN chest 11/20/22 06/29/24 Rx tablet pain #30 tabs ticagrelor 90 mg tablet (Brilinta) 90 mg PO BID #180 tabs 09/09/23 06/29/24 Rx pneumoc 20-arabella conj-dip cr(PF) 0.5 0.5 ml IM ONCE #0.5 mL 01/05/24 03/31/24 Rx mL IM syringe (Prevnar 20 (PF)) prednisone 10 mg tablet See Rx Instructions .Route 03/25/24 03/31/24 Rx .COMPLEX #15 tabs carvedilol 3.125 mg tablet (Coreg) 3.125 mg PO PM 03/31/24 06/29/24 History levofloxacin 500 mg tablet 500 mg PO DAILY 5 days #5 tabs 04/11/24 Rx prednisone 20 mg tablet 20 mg PO DAILY 5 days #5 tabs 04/11/24 Rx fluticasone fur. 100 mcg-umeclid See Rx Instructions .Route 04/19/24 06/29/24 Rx 62.5 mcg-vilant 25 mcg .COMPLEX #60 ea inhalat.powder (Trelegy Ellipta) valsartan 40 mg tablet (Diovan) 20 mg (1/2 x 40 mg) PO QAM #45 tabs 04/21/24 06/29/24 Rx ezetimibe 10 mg tablet (Zetia) 10 mg PO QAM #90 tabs 05/06/24 06/29/24 Rx allopurinol 100 mg tablet 100 mg PO DAILY 06/29/24 06/29/24 History verapamil 120 mg 24 hr 120 mg PO DAILY 06/29/24 06/29/24 History capsule,extended release Patient History Medical History Lyme disease hx - ~. no recent issues History of COVID-30 October 2022 -> generalized weakness, joint pain, cough, and nausea. treated inpatient at [facility]. 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 Solitary pulmonary nodule 12/23/21 CT findings "stable" per pulmonary workload note 12/26/21 Hypertension Cancer of lung 1998 s/p lobectomy/chemo/xrt STEMI (ST elevation myocardial infarction) 2018 Surgical History H/O left knee surgery Left knee polyexchange tibial component (02/2022 at [facility] with Dr Mcdowell) H/O sinus surgery nasal cautery History of arthroscopy of left shoulder History of esophagogastroduodenoscopy (EGD) with dilation of esophagus - 10/30/22 S/P laparoscopic cholecystectomy Lap samy (01/28/21): Grade view 1, MAC#4, ETT 7.5 at [facility] History of excision of mass Neck (2017) x2 History of colonoscopy S/P excision of lipoma Hx of cataract surgery R/L S/P lobectomy of lung Left (February 1999 at [facility] [place] d/t lung ca S/P total knee arthroplasty Left S/P appendectomy History of cardiac catheterization S/p stents x4 (2016) S/p stent (2019) to D1 Known occluded distal LAD per cardio records Family History Brother Cancer Hypertension Sister Cancer Hypertension Diabetes Mother Hypertension Diabetes Unknown Coronary heart disease Father Coronary heart disease Daughter Breast cancer Other Lung cancer Myocardial infarction Denies family history of Ovarian cancer Prostate cancer Hearing loss No family history of adverse response to anesthesia No family history of bleeding disorder Heart disease Allergies Colorectal cancer Stroke Asthma Social History Smoking Status: Never smoker Tobacco Type: Cigarettes Age Started Using Tobacco: 23; Age Quit Using Tobacco: 51; packs per day: 0.5; Second Hand Exposure: No; Do You Dip or Chew Tobacco: No; Tobacco Cessation Education Requested by Patient: No Hx Alcohol Use: No Hx Substance Use: No Preferred Language: Danish Communication Ability: Effective Visual Impairment: No Limitations 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: Use of Hearing Aid Guard Sergeant Required: No Beliefs That Will Affect Care: None marital status: Current Living Situation: Spouse current occupational status: retired current occupation: retired How many Children do You have: 1 Other Information That Helps Us Care for You: No Feels Safe at Home: Yes Safety Concerns: Feels Safe At This Time Childhood Exposure to Second-Hand Smoke: Yes Diet: regular caffeine: Yes (2 cups of coffee daily ) Dental Care, Regularly: No Physical Activity Frequency: Does not Exercise Seatbelt Use: always Sunscreen Use: Yes (sometimes) Do you think of yourself as: straight/heterosexual Assistive Devices: Denture - Upper, Denture - Lower and Hearing Aid - Bilateral Review of Systems Review of Systems: All systems reviewed & are unremarkable except as noted in HPI & below Physical Exam Physical Exam: General: Comfortable HEENT: Sclerae anicteric Lungs: Clear to auscultation bilaterally, no crackles or wheezes Cardiac: Irregular irregular, 2/6 holosystolic murmur. Chest wall tender to palpation Vascular: 2+ radial Abdomen: Soft, nontender Extremities: Well perfused, no peripheral edema Neuro: Nonfocal Psych: Alert orient x3, normal affect and mood Results & Data Vital Signs (Past 12 Hours) Vital Signs Temp Pulse Pulse Resp BP BP Pulse Ox 06/29/24 12:51 84 26 H 100 06/29/24 12:33 80 20 87 L 06/29/24 12:30 126/65 06/29/24 12:30 126/65 06/29/24 12:30 126/65 06/29/24 12:18 87 27 H 97 06/29/24 12:12 85 25 H 99 06/29/24 12:03 79 29 H 100 06/29/24 12:00 98/71 L 06/29/24 12:00 98/71 L 06/29/24 11:48 83 20 97 06/29/24 11:30 82 16 97 06/29/24 11:30 92/66 L 06/29/24 11:25 84 20 120/67 97 06/29/24 11:24 120/62 06/29/24 11:24 120/62 06/29/24 11:24 120/62 06/29/24 11:24 93 06/29/24 11:12 98 06/29/24 11:06 99 06/29/24 10:42 94 H 26 H 89 L 06/29/24 10:40 97 H 18 93/55 L 99 06/29/24 10:38 87 18 93/55 L 99 06/29/24 10:32 06/29/24 10:30 93/55 L 06/29/24 10:30 93/55 L 06/29/24 10:30 93/55 L 06/29/24 10:23 104/67 06/29/24 10:23 100 H 17 104/67 99 06/29/24 10:18 85 17 99 06/29/24 10:15 92 H 24 99 06/29/24 10:06 89 21 99 06/29/24 09:57 85 21 100 06/29/24 09:42 88 20 99 06/29/24 09:33 90 19 99 06/29/24 09:09 71 96 06/29/24 08:45 85 33 H 100 06/29/24 08:34 96/77 L 06/29/24 08:32 96/77 L 06/29/24 08:06 80 27 H 96 06/29/24 08:03 29 H 100 06/29/24 08:00 81 22 114/70 100 06/29/24 07:57 91 H 22 99 06/29/24 07:42 82 22 99 06/29/24 07:30 77 23 99 06/29/24 07:24 94 H 12 100 06/29/24 07:15 114/70 06/29/24 07:15 89 30 H 96 06/29/24 07:12 84 11 L 06/29/24 07:00 86 25 H 91 06/29/24 07:00 116/67 06/29/24 06:57 89 17 99 06/29/24 06:42 84 31 H 99 06/29/24 06:30 117/66 06/29/24 06:20 83 18 117/66 99 06/29/24 06:15 98/58 L 06/29/24 06:12 80 29 H 98 06/29/24 06:00 102/65 06/29/24 05:45 86 22 92/66 L 98 06/29/24 05:26 84 20 97/59 L 99 06/29/24 05:00 96 H 18 93/62 L 98 06/29/24 04:52 89 18 98 06/29/24 04:52 95 H 18 98/54 L 98 06/29/24 04:52 98 06/29/24 04:48 106 H 24 96 06/29/24 04:45 98/54 L 06/29/24 04:45 98/54 L 06/29/24 04:43 94/70 L 06/29/24 04:37 103 H 06/29/24 04:35 98 H 103/76 99 06/29/24 04:32 97.5 F L 99 H 20 103/76 98 Pulse Ox O2 Del Method O2 Del Method 06/29/24 12:51 06/29/24 12:33 06/29/24 12:30 06/29/24 12:30 06/29/24 12:30 06/29/24 12:18 06/29/24 12:12 06/29/24 12:03 06/29/24 12:00 06/29/24 12:00 06/29/24 11:48 06/29/24 11:30 06/29/24 11:30 06/29/24 11:25 Room Air 06/29/24 11:24 06/29/24 11:24 06/29/24 11:24 06/29/24 11:24 06/29/24 11:12 06/29/24 11:06 06/29/24 10:42 06/29/24 10:40 Room Air 06/29/24 10:38 Room Air 06/29/24 10:32 99 Room Air 06/29/24 10:30 06/29/24 10:30 06/29/24 10:30 06/29/24 10:23 06/29/24 10:23 Room Air 06/29/24 10:18 06/29/24 10:15 06/29/24 10:06 06/29/24 09:57 06/29/24 09:42 06/29/24 09:33 06/29/24 09:09 06/29/24 08:45 06/29/24 08:34 06/29/24 08:32 06/29/24 08:06 06/29/24 08:03 06/29/24 08:00 Room Air 06/29/24 07:57 06/29/24 07:42 06/29/24 07:30 06/29/24 07:24 06/29/24 07:15 06/29/24 07:15 06/29/24 07:12 06/29/24 07:00 06/29/24 07:00 06/29/24 06:57 06/29/24 06:42 06/29/24 06:30 06/29/24 06:20 Room Air 06/29/24 06:15 06/29/24 06:12 06/29/24 06:00 06/29/24 05:45 06/29/24 05:26 06/29/24 05:00 06/29/24 04:52 Room Air 06/29/24 04:52 Room Air 06/29/24 04:52 06/29/24 04:48 06/29/24 04:45 06/29/24 04:45 06/29/24 04:43 06/29/24 04:37 06/29/24 04:35 06/29/24 04:32 Room Air PG Care Time/CCT Total # of Minutes Spent Total Time Spent with Patient: Total time spent is greater than 50% in coordination of care (as documented) at patient's floor/unit and/or counseling patient: Coding Level of Care Code 30601 INT INP/OBS CARE MIN Diagnoses Chest pain R07.9 Chest pain type: unspecified (1) Chest pain Chest pain type: unspecified Qualified Code(s): R07.9 - Chest pain, unspecified
--- NOTE | 2024-06-29 17:01 | Billing Data ---
Date of Service June 29, 2024 Coding Level of Care Code 32875 INT INP/OBS CARE
[2024-06-29] MEDS: APIXABAN 5 MG TABLET PO SCH (17:31)
[2024-06-29 18:57] LABS: Troponin I High Sensitivity 17.9 pg/ml (0-20)
[2024-06-29 19:06] LABS: ANTI-Xa, UFH(UnfractionatedHep 0.44 IU/ml (0.3-0.7)
[2024-06-29 19:08] LABS: Thyroid Stimulating Hormone 5.765 uIu/ml (0.300-4.500)
[2024-06-29 19:46] LABS: T4 Free Thyroxine 0.9 ng/dl (0.61-1.60)
[2024-06-29] MEDS: METOPROLOL SUCC 25MG EXT REL TAB PO SCH (20:03)
[2024-06-30] MEDS: NITROGLYCERIN SL 0.4 MG/TAB TAB SL PRN (00:32)
--- NOTE | 2024-06-30 00:55 | Communication Note ---
Date of Service: June 30, 2024 Notified of recurrent chest pain. Evaluated at bedside. Left sided, no radiation. Heart with irregular rate and rhythm, lungs clear B/L. Repeat EKG w ith T wave inversions in I and aVL when compared to prior. Repeat troponin 18.5. Received Nitro x 2 without pain relief. Pain resolved with 1mg morphine. On Metoprol BID-> blood pressure borderline at 90s/70s so hold on further beta gene or nitro paste for now. F/u with cardiology qAM in regards to EKG changes.
[2024-06-30] MEDS: MoRPHine SULFATE 2 MG/ML CARP IV STA ×2 (01:05→07:36)
[2024-06-30] MEDS: METOPROLOL SUCC 50MG EXT REL TAB PO STA (01:25)
[2024-06-30 02:23] LABS: Hematocrit (blood only) 33.4 % (42.0-52.0); Hemoglobin 10.2 g/dl (14.0-18.0); Mean Corpuscular Hemoglobin 24.4 pg (25.0-34.0); Mean Corpuscular Hgb Conc 30.5 g/dL (32.0-36.0); Mean Corpuscular Volume 79.9 fL (80.0-100.0); Platelet Count 167 K/uL (130-400); RDW Coefficient of Variation 17.9 % (11.5-14.5); RDW Standard Deviation 52.4 fL (36.4-46.3); Red Blood Count 4.18 M/uL (4.70-6.10)
[2024-06-30 02:29] LABS: BUN Creatinine Ratio 15.9 (10-20); Calcium 8.7 mg/dl (8.6-10.3); Creatinine Clr Calc Pharmacy 43.1 ml/min; Est GFR (African American) 55.8 ml/min; Est GFR (Non-African American) 48.2 ml/min; Potassium 4.3 mmol/L (3.5-5.1)
[2024-06-30] MEDS: CLOPIDOGREL BISULFATE 300 MG TAB PO ONE (06:06)
--- NOTE | 2024-06-30 06:13 | Electrocardiogram Report ---
Test Reason : Blood Pressure : */* mmHG Vent. Rate : 95 BPM Atrial Rate : * BPM P-R Int : * ms QRS Dur : 124 ms QT Int : 406 ms P-R-T Axes : * -55 121 degrees QTcB Int : 510 ms Atrial fibrillation with premature ventricular or aberrantly conducted complexes Left anterior fascicular block Minimal voltage criteria for LVH, may be normal variant ( [place] product ) Septal infarct (cited on or before 03-Sep-2020) Abnormal ECG When compared with ECG of 29-Jun-2024 04:36, (unconfirmed) No significant change was found Confirmed by Minesh Lux ([id number]) on 06/30/2024 6:13:14 AM Referred By: REFERRED SELF Confirmed By: Minesh Lux
--- NOTE | 2024-06-30 06:13 | Electrocardiogram Report ---
Test Reason : Blood Pressure : */* mmHG Vent. Rate : 110 BPM Atrial Rate : * BPM P-R Int : * ms QRS Dur : 120 ms QT Int : 372 ms P-R-T Axes : * -54 114 degrees QTcB Int : 503 ms Atrial fibrillation with rapid ventricular response with premature ventricular or aberrantly conducte d complexes Left anterior fascicular block Left ventricular hypertrophy with QRS widening ( R in aVL , [place] product ) Septal infarct (cited on or before 03-Sep-2020) T wave abnormality, consider lateral ischemia Abnormal ECG When compared with ECG of 20-Apr-2023 09:56, Atrial fibrillation has replaced Sinus rhythm Right bundle branch block is no longer Present Questionable change in initial forces of Septal leads Confirmed by Minesh Lux ([id number]) on 06/30/2024 6:12:44 AM Referred By: REFERRED SELF Confirmed By: Minesh Lux
--- NOTE | 2024-06-30 06:20 | Electrocardiogram Report ---
Test Reason : Blood Pressure : */* mmHG Vent. Rate : 81 BPM Atrial Rate : * BPM P-R Int : * ms QRS Dur : 122 ms QT Int : 400 ms P-R-T Axes : * -61 113 degrees QTcB Int : 464 ms Atrial fibrillation Left anterior fascicular block Left ventricular hypertrophy with QRS widening ( R in aVL , [place] product ) Nonspecific T wave abnormality Abnormal ECG When compared with ECG of 29-Jun-2024 05:00, (unconfirmed) Criteria for Septal infarct are no longer Present Nonspecific T wave abnormality, worse in Lateral leads Confirmed by Minesh Lux ([id number]) on 06/30/2024 6:19:43 AM Referred By: REFERRED SELF Confirmed By: Minesh Lux
[2024-06-30] MEDS: METOPROLOL SUCC 25MG EXT REL TAB PO ONE (09:45)
--- NOTE | 2024-06-30 09:55 | Hospitalist Progress Note ---
<Statement entered by Ellen Sue MD - 06/30/24 18:35> I have reviewed vital signs, chart notes, labs and imaging. I have personally seen, evaluated and examined the patient. I have also discussed the management of the patient with the PEDRO and I agree with the exam findings documented in the history and physical examination and the documented assessment and plan unless otherwise stated below. he had some chest pain in the night was treated with morphine new EKG was obtained communication note by resident states that he had some new T wave inversions, however, I personally reviewed all of his EKG tracings from yesterday and overnight and in fact he does not have any T wave inversions it appears that that was related to a PVC, so by my assessment his EKGs are all unchanged. his troponin was minimally elevated to 18 and downtrended, again no evidence of acute coronary syndrome Mr. Singleton is awake alert sitting in bed his lungs are clear heart is irreg ularly irregular minimally tachycardic his chest wall remains tender to palpation lateral to the precordium just below the area of the nipple line. There is no deformity or bruising in this area. Abdomen is soft and nondistended. Extremities are warm and well-perfused with no lower extremity edema today we will increase his metoprolol to 50 mg twice daily for better rate control we will continue apixaban- I personally counseled Mr. Singleton and his on the risks and benefits of anticoagulation including the benefits of significant stroke risk reduction versus risks of bleeding especially gastrointestinal bleeding and rare but life-threatening or disabling intracranial hemorrhage added scheduled Tylenol and prednisone for his musculoskeletal left-sided chest wall pain Date of Service June 30, 2024 Assessment & Plan (1) Chest pain: Plan: 88yo male with known CAD s/p multiple stents (6 years ago), h/o 2 STEMIs, known distal occlusion of LAD presented with substernal chest pain that radiated to the left arm and back, c/o dizziness. Displaying tenderness to palpation of the lateral left chest wall. Initial troponin 15.7. EKG with new onset atrial fibrillation, no signs ST segment elevation. Suspected to be musculoskeletal in nature. Patient with new AF, borderline low BP, h/o prior provoked PE -Initial troponin 15.7, trends had decreased, overnight increased to peak 18.5. Trending down since. Patient is asymptomatic. EKG tracing unchanged per my review. -Continue Plavix. -Nitro PRN chest pain as blood pressure allows. -TTE 06/29/2024 with EF 35 to 40%, small pericardial effusion, moderate pulmonary hypertension. -D-dimer 930ug/L; age correction completed. -Discussed findings with cardiology; Cardiology agrees this is likely musculoskeletal in nature. -Spoke with commercial lines account manager Dr. Sahu regarding patient's ongoing chest discomfort. Recommends Tylenol and dose of steroid to combat pain and inflammation. Agreeable to increasing metoprolol dose to 50 twice daily for better rate control. If rate control is not achieved, will consider benefits of starting digoxin. -Increase metoprolol to 50 twice daily. -Appreciate ongoing cardiology input. Inflammation -Tylenol scheduled for pain. -Prednisone 20mg started, will require taper upon discharge 2/2 symptoms with abrupt discontinuation. CAD - Telemetry - Hold Valsartan. Possibly GI in nature -Trialed GI cocktail while doing workup of differential diagnoses, no relief -No ongoing abdominal symptoms. (2) Atrial fibrillation: Plan: New onset atrial fibrillation on presenting EKG. -TSH 5.765 and normal T4, recommend following outpatient for recheck. -Mg 2.0 -TTE 06/29/2024 EF 35 to 40%, small pericardial effusion, moderate pulmonary hypertension. -Continue apixaban for anticoagulation. -Increase metoprolol to 50 twice daily. 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 -Discontinued Carvedilol 2/2 borderline low BP -Holding Valsartan for now Complicated Migraine -Hold Verapamil for now given low blood pressure Hyperlipidemia -Continue Zetia Microcytic hypochromic anemia -Pending iron studies -Pending B12 levels, evaluate baseline PT/OT Code: Full DVT Prophylaxis: Anticoagulated with DOAC and clopidogrel Admission and Anticipated Discharge Date Admission Date: June 29, 2024 Subjective Patient was seen sitting up in his bed in his room at the time of the visit. He states that he feels as though he has been improving, and has denied ongoing chest pain or palpitations. Patient states that he only experiences mild shortness of breath in a supine position that is alleviated when sitting upright. Denies edema of legs or feeling of fullness in the abdomen. Review of Systems Respiratory: no dyspnea Cardiovascular: as per Subjective / HPI and + orthopnea; no chest pain, no palpitations, no lightheadedness, no syncope and no edema Gastrointestinal: no heartburn, no nausea, no vomiting and no change in bowel habits Physical Exam Constitutional: comfortable Respiratory: normal respiratory effort, lungs clear to auscultation Cardiovascular: Rate/Rhythm: + irregularly irregular Heart Sounds: no murmur Extremities: no calf tenderness and no edema Tenderness to palpation of left lateral chest just below the nipple. Gastrointestinal (Abdomen): normal bowel sounds, soft, nontender, no hepatosplenomegaly Results & Data Results & Data Vital Signs (Past 12 Hours) Vital Signs Temp Pulse Pulse Resp BP Pulse Ox O2 Del Method 06/30/24 07:51 36.5 C 98 H 18 132/81 93 Room Air 06/30/24 06:39 104 H 12 139/93 06/30/24 03:26 36.4 C L 101 H 16 126/89 98 Room Air 06/30/24 01:23 94 H 130/70 06/30/24 00:54 122/70 06/30/24 00:44 78 104/63 06/30/24 00:37 93 H 95/71 L 95 Room Air 06/30/24 00:30 104 H 119/83 06/29/24 23:15 36.4 C L 107 H 20 120/91 97 Room Air 06/29/24 21:58 100 H Laboratory Results Abnormal lab results 06/29/24 06/29/24 06/30/24 Range/Units 10:46 17:56 02:02 WBC 4.50 L (4.8-10.8) K/ul RBC 4.18 L (4.70-6.10) M/uL Hgb 10.2 L (14.0-18.0) g/dl Hct 33.4 L (42.0-52.0) % MCV 79.9 L (80.0-100.0) fL MCH 24.4 L (25.0-34.0) pg MCHC 30.5 L (32.0-36.0) g/dL RDW Std Deviation 52.4 H (36.4-46.3) fL RDW Coeff of Falguni 17.9 H (11.5-14.5) % D-Dimer 930 H* (0-500) ug/L FEU Chloride 108 H (98-107) mmol/L TSH 5.765 H (0.300-4.500) uIu/ml PG Care Time/CCT Total # of Minutes Spent Total Time Spent with Patient: Total time spent is greater than 50% in coordination of care (as documented) at patient's floor/unit and/or counseling patient: Coding Level of Care Code None Diagnoses Chest pain R07.9 Chest pain type: unspecified Atrial fibrillation I48.91 (1) Chest pain Chest pain type: unspecified Qualified Code(s): R07.9 - Chest pain, unspecified
[2024-06-30] MEDS: predniSONE 20 MG TAB PO SCH (11:45)
--- NOTE | 2024-06-30 12:09 | Electrocardiogram Report ---
Test Reason : Blood Pressure : */* mmHG Vent. Rate : 103 BPM Atrial Rate : 104 BPM P-R Int : * ms QRS Dur : 122 ms QT Int : 368 ms P-R-T Axes : * -54 116 degrees QTcB Int : 482 ms Atrial fibrillation with rapid ventricular response Left anterior fascicular block Left ventricular hypertrophy with QRS widening and repolarization abnormality Abnormal ECG When compared with ECG of 29-Jun-2024 07:51, Inverted T waves have replaced nonspecific T wave abnormality in Anterolateral leads Confirmed by Santiago Dobbs ([id number]) on 06/30/2024 12:08:29 PM Referred By: REFERRED SELF Confirmed By: Santiago Dobbs
--- NOTE | 2024-06-30 12:14 | Electrocardiogram Report ---
Test Reason : Blood Pressure : */* mmHG Vent. 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
--- NOTE | 2024-06-30 12:39 | Cardiology Progress Note ---
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 Ischemic zeovltfyxfyhbl52-39% 4. Atrial [id number] 5 5. Hypertension 6. Complicated migraine headaches 7. COPD/prior left lobectomy for lung CA 8. Dyslipidemiastatin intolerance 9. provoked PE in the setting of GI surgery 01/2021 10. Recurrent epistaxis 11. Small to moderate pericardial effusion 12. Dysphagiaimproved post esophageal dilation 10/2022 13. Anemia Continues to have near constant left-sided, reproducible chest pain. HS TropI/ECG unremarkable. Chest pain is noncardiac and appears musculoskeletal. Remains in persistent AF. AF not causing chest pain. May contribute to some exertional shortness of breath. For now plan on continued rate control Chest pain control with Tylenol, topical NSAIDs/analgesics and trial of steroids Agree with increasing Toprol-XL to 50 mg today. Okay with resting heart rates <110s, if remains elevated and BP remains borderline would start digoxin Continue dual therapy with Eliquis/clopidogrel Continue Zetia Resume home valsartan as able From a cardiac standpoint okay with discharge when chest pain controlled. Will arrange close follow-up. Appreciate hospital medicine care Admission and Anticipated Discharge Date Admission Date: June 29, 2024 Subjective Still having persistent chest pain. Episode of more severe pain overnight r equiring morphine. HS TropI unchanged. ECG continues to show AF with LVH and repolarization abnormality Telemetry reviewedAF resting heart rates 110s to 120s, as high as 140s 150s with exertion Review of Systems Review of Systems: All systems reviewed & are unremarkable except as noted in HPI & below Physical Exam Physical Exam: General: Comfortable HEENT: Sclerae anicteric Lungs: Clear to auscultation bilaterally, no crackles or wheezes Cardiac: Irregular irregular, 2/6 holosystolic murmur. Chest wall tender to palpation Vascular: 2+ radial Abdomen: Soft, nontender Extremities: Well perfused, no peripheral edema Neuro: Nonfocal Psych: Alert orient x3, normal affect and mood Results & Data Vital Signs (Past 12 Hours) Vital Signs Temp Pulse Resp BP Pulse Ox O2 Del Method 06/30/24 11:03 97.5 F L 96 H 126/102 H 97 Room Air 06/30/24 07:51 97.7 F 98 H 18 132/81 93 Room Air 06/30/24 06:39 104 H 12 139/93 06/30/24 03:26 97.5 F L 101 H 16 126/89 98 Room Air 06/30/24 01:23 94 H 130/70 06/30/24 00:54 122/70 06/30/24 00:44 78 104/63 06/30/24 00:37 93 H 95/71 L 95 Room Air PG Care Time/CCT Total # of Minutes Spent Total Time Spent with Patient: Total time spent is greater than 50% in coordination of care (as documented) at patient's floor/unit and/or counseling patient: Coding Level of Care Code 75167 SUB INP/OBS CARE 3/50MIN Diagnoses Chest pain R07.9 Chest pain type: unspecified (1) Chest pain Chest pain type: unspecified Qualified Code(s): R07.9 - Chest pain, unspecified
[2024-06-30] MEDS: ACETAMINOPHEN 325 MG TAB PO SCH (13:52)
--- NOTE | 2024-06-30 18:35 | Billing Data ---
Date of Service June 30, 2024 Coding Level of Care Code 04996 INT INP/OBS CARE
[2024-06-30] MEDS: METOPROLOL SUCC 50MG EXT REL TAB PO SCH (20:07)
--- NOTE | 2024-07-01 00:45 | Communication Note ---
Date of Service: July 01, 2024 Notified at oxygen desaturation to the 70s while pt was up and walking. Put on 2L NC and SPO2 back up to 90s. Saw pt at bedside and he is in no acute distress. Denies chest pain/dyspnea. Lungs clear to auscultation B/L. SPO2 in the mid 90s while he was resting in bed- attempted to wean oxygen and he stopped to 87 on room air. Noted history of PE. D-dimer on admission= 930 (age adjusted cut off of 870). Hives with contrast during CT 10/2022, so can not get CTA. CT chest with right upper lobe PNA-> cephalosporin/penicillin allergy. MRSA nares pending. Plan to start on vancomycin + ertapenem. At ~0345 notified of episode of coughing- some blood on sputum. Increase oxygen requirement to 6L oxymask from 4L NC. Evaluated pt at bedside, he was in no acute distress- no further hemoptysis. Hemodynamically stable- blood pressure 160s/90s, HR in the 90s. Repeat labs order. Pulm consult placed. Hold Eliquis/Plavix pending pulm consult.
--- NOTE | 2024-07-01 02:37 | CT Scan Report ---
Exam(s): CT CHEST Without Contrast EXAM: CT Chest Without Intravenous Contrast CLINICAL HISTORY: Reason for exam: Increased oxygen requirement. TECHNIQUE: Axial computed tomography images of the chest without intravenous contrast. CTDI is 9.75 mGy and DLP is 358.6 mGy-cm. Automated exposure control was utilized for the study. A dose lowering technique was utilized adhering to the principles of ALARA. COMPARISON: No relevant prior studies available. FINDINGS: Lungs: Airspace consolidation throughout the RIGHT upper lobe, with pneumonia. Severe centrilobular emphysema in the RIGHT upper lobe. Left- sided lobectomy with scarring at the LEFT lung apex. Mild calcifications along the posterior LEFT pleura. No mass. Pleural space: Small RIGHT pleural effusion. No pneumothorax. Heart: Unremarkable. No cardiomegaly. No significant pericardial effusion. No significant coronary artery calcifications. Bones/joints: Degenerative changes of the spine. No acute fracture. No dislocation. Soft tissues: Unremarkable. Vasculature: Atherosclerotic changes of the aorta. No thoracic aortic aneurysm. Lymph nodes: Unremarkable. No enlarged lymph nodes. Gallbladder and bile ducts: Cholecystectomy. IMPRESSION: 1. Airspace consolidation throughout the RIGHT upper lobe, with pneumonia. 2. Severe centrilobular emphysema in the RIGHT upper lobe. Left-sided lobectomy with scarring at the LEFT lung apex. Mild calcifications along the posterior LEFT pleura. 3. Small RIGHT pleural effusion. Electronically signed by: Antonio Webber MD 07/01/24 02:36 AM
[2024-07-01] MEDS ORDERED: VANCOMYCIN CONSULT ACTIVE PRN (03:13)
[2024-07-01] MEDS: VANCOMYCIN HCL 1,500 MG in SODIUM CHLORIDE 0.9% 500 ML IV ONE (04:23)
[2024-07-01] MEDS: ERTAPENEM SODIUM 1,000 MG in SYRINGE 0 ML IV SCH (04:24)
[2024-07-01 04:33] LABS: Base Excess VBG -1.5 mEq/L; HCO3 VBG 24 mmol/L; Oxygen Saturation VBG < 60.0 %; PCO2 VBG 44 mmHg (38-50); PO2 VBG 25 mmHg; pH VBG 7.35 (7.36-7.41)
[2024-07-01 04:40] LABS: Basophils # (auto) 0.01 K/uL (0.00-0.20); Basophils % (auto) 0.2 %; Eosinophils # (auto) 0.01 K/uL (0.00-0.50); Eosinophils % (auto) 0.2 %; Hematocrit (blood only) 36.3 % (42.0-52.0); Hemoglobin 11.1 g/dl (14.0-18.0); Immature Granulocytes # (auto) 0.02 K/uL (0.01-0.20); Immature Granulocytes % (auto) 0.4 %; Lymphocytes # (auto) 0.67 K/uL (1.20-3.40); Lymphocytes % (auto) 13.3 %; Mean Corpuscular Hemoglobin 24.3 pg (25.0-34.0); Mean Corpuscular Hgb Conc 30.6 g/dL (32.0-36.0); Mean Corpuscular Volume 79.4 fL (80.0-100.0); Mean Platelet Volume 11.2 fL (9.4-12.4); Neutrophils # (auto) 4.02 K/uL (1.40-6.50); Neutrophils % (auto) 79.9 %; Platelet Count 171 K/uL (130-400); RDW Standard Deviation 51.9 fL (36.4-46.3); Red Blood Count 4.57 M/uL (4.70-6.10); White Blood Count 5.03 K/ul (4.8-10.8)
[2024-07-01 04:56] LABS: Albumin Globulin Ratio 1.4 (0.9-2); Albumin Level 3.9 gm/dl (3.4-5.0); BUN Creatinine Ratio 17.9 (10-20); BUN Creatinine Ratio 18.6 (10-20); Bilirubin,Total 1.1 mg/dl (0.2-1.0); Calcium 8.9 mg/dl (8.6-10.3); Creatinine Clr Calc Pharmacy 46.4 ml/min; Creatinine Clr Calc Pharmacy 48.4 ml/min; Est GFR (African American) 60.8 ml/min; Est GFR (African American) 63.9 ml/min; Est GFR (Non-African American) 52.5 ml/min; Est GFR (Non-African American) 55.2 ml/min; Globulin 2.8 gm/dl (2.5-4.0); Potassium 4.3 mmol/L (3.5-5.1); Total Protein 6.7 gm/dl (6.0-8.3)
[2024-07-01 05:16] LABS: Ferritin 20.2 ng/ml (8-388)
[2024-07-01] MEDS ORDERED: CLOPIDOGREL BISULFATE 75 MG TAB PO SCH (06:00)
--- NOTE | 2024-07-01 08:15 | Hospitalist Progress Note ---
Date of Service July 01, 2024 Assessment & Plan (1) Right upper lobe pneumonia: Plan: 88yo male with known CAD s/p multiple stents (6 years ago), h/o 2 STEMIs, known distal occlusion of LAD presented with substernal chest pain that radiated to the left arm and back, c/o dizziness. Ruled out for ACS, was in new onset rapid afib. Cardiology consulted. Chest pain easily reproducible on palpation consistent with MSK pain. Rate control improved with metoprolol. Evening of 06/30-07/01 developed new onset hypoxia. noncontrast chest CT with extensive RUL pneumonia. RUL pneumonia with some hemoptysis - Personally reviewed chest CT films - prior left lobectomy, extensive RUL infiltrates, emphysematous changes CXR morning of 06/29 was clear, no leukocytosis or fever and initally no hypoxia so this is a surprising turn of events. -continue ertapenem for now. Has reported rash with PCN and cephalosporin -MRSA nares negative stopped vancomycin -apixaban held - this AM had only blood streaked sputum He has history of esophageal stricture dilation. Reports solid and liquid regurgitation and having to swallow twice at times. This puts him at risk for aspiration pneumonia. Reviewed previous GI notes - had EGD for dysphagia 10/30/22 normal esophagus, was dilated with 54Fr, PPI recommended, neck CT same time nothing significant. -will restart PPI to see if symptoms improve, follow up with gastroenterology to consider repeat EGD (2) Atrial fibrillation: Plan: New onset rapid atrial fibrillation at time of admission Continue metoprolol - BP and rate have improved, consider increase dose by tonight -apixaban held this AM for hemoptysis TSH 5.765 and normal T4, likely euthyroid sick, recheck TSH as outpatient in 4-6 weeks -TTE 06/29/2024 EF 35 to 40%, small pericardial effusion, moderate pulmonary hypertension. (3) Chest pain: Plan: Displaying tenderness to palpation of the lateral left chest wall consistent with musculoskeletal pain. Serial troponins negative and no EKG changes other than afib. -continue acetaminophen and short course of prednisone - this pain is resolving Plan CAD - further ischemic evaluation not recommended right now -changed brilinta to plavix, plavix load given AM of 06/30. Will be on plavix and apixaban -carvedilol replaced with metoprolol for better rate control -statin intolerant, continue zetia CHF - patient with ICM, HFrEF 40-45% per echo 02/10/24 with severe mid to apical anterior hypokinesis and mildly hypokinetic lateral an anteroseptal segments; 06/29/2024 EF 35 to 40%, small pericardial effusion, moderate pulmonary hypertension.No signs of volume overload at present. -continue b-gene -holding Valsartan for now -lasix 40 mg IV x 1 today, may be mildly volume overloaded. Discussed with Dr. Sahu at bedside Complicated Migraine -Hold Verapamil for now Hyperlipidemia -Continue Zetia Microcytic hypochromic anemia -iron stores may be a little low - oral replacement B12 deficiency - start IM then oral replacement Gout - continue allopurinol COPD - continue inhalers, not in exacerbation PT/OT DVT Prophylaxis: Anticoagulated with DOAC Admission and Anticipated Discharge Date Admission Date: June 29, 2024 Subjective became hypoxic overnight noncontrast chest CT - extensive RUL pneumonia. Interestingly CXR 24h prior was clear. started ertapenem and vancomycin had some hemoptysis - is on apixaban and had plavix load yesterday AM hemoptysis overnight but decreased this am - blood streaked per RN L chest wall pain resolving +cough and dyspnea notes intermittent regurgitation of liquids and solids, hx esophageal dilation Physical Exam 2 Physical Exam: PHYSICAL EXAMINATION Last 24h vital signs reviewed, see documentation in flowsheet General: lying in bed HEENT: Normocephalic, atraumatic, pupils round and equal, sclerae anicteric, no conjunctival injection, moist mucus membranes Lungs: coarse RUL, diminished bases, mild basilar crackles no wheezing. Heart: Regular rate and rhythm, no murmurs. No JVD Abdomen: Soft, nontender, nondistended. Bowel sounds present. Extremities: Warm, dry, well-perfused. No extremity edema. Neuro: Alert and oriented x 4, face symmetric, moves 4 extremities well Psych: Normal affect and behavior Results & Data Results & Data Vital Signs (Past 12 Hours) Vital Signs Temp Pulse Pulse Resp BP Pulse Ox O2 Del Method 07/01/24 03:40 36.7 C 99 H 20 163/94 H 93 Oxymask 07/01/24 00:00 93 H 06/30/24 23:33 37.0 C 93 H 18 152/92 H 92 Nasal Cannula Laboratory Results 07/01/24 04:12 07/01/24 04:12 PG Care Time/CCT Total # of Minutes Spent Total Time Spent with Patient: Total time spent is greater than 50% in coordination of care (as documented) at patient's floor/unit and/or counseling patient: Coding Level of Care Code 97173 SUB INP/OBS CARE 3/50MIN Diagnoses Right upper lobe pneumonia J18.9 Atrial fibrillation I48.91 Chest pain R07.9 Chest pain type: unspecified (3) Chest pain Chest pain type: unspecified Qualified Code(s): R07.9 - Chest pain, unspecified
--- NOTE | 2024-07-01 13:12 | Cardiology Progress Note ---
Date of Service July 01, 2024 Assessment & Plan (1) Chest pain: Plan: Noncardiac, musculoskeletalimproved 2. Multivessel CAD -hx repeated LAD/diagonal interventions, known occluded distal LAD 3. Ischemic myouvzdgphjaef50-67% 4. Atrial [id number] 5 5. Hypertension 6. Complicated migraine headaches 7. COPD/prior left lobectomy for lung CA 8. Dyslipidemiastatin intolerance 9. provoked PE in the setting of GI surgery 01/2021 10. Recurrent epistaxis 11. Small to moderate pericardial effusion 12. Dysphagiaimproved post esophageal dilation 10/2022 13. Anemia 14. Right lung infiltrate/questionable pneumonia Prior chest pain is largely resolved. AF converted to sinus rhythm New hypoxia/hemoptysis overnight. CT with new infiltrate questionable RUL pneumonia. Also with new pleural effusion On exam today minimal congestion. Being treated with broad-spectrum antibiotics for possible pneumonia With mild congestion/pleural effusion/weight gain would give IV Lasix 40 mg x 1 today Remains on Eliquis. Resume clopidogrel if no further hemoptysis Continue current Toprol-XL 50 mg twice daily. Can resume verapamil as an outpatient Restart valsartan as BP allows Continue home [facility] medicine care Admission and Anticipated Discharge Date Admission Date: June 29, 2024 Subjective Today reports feeling okay. His prior chest pain has resolved. Atrial fibrillation converted to sinus rhythm around 9:30 AM yesterday Overnight increasingly hypoxic and new productive cough with hemoptysis Chest CT with right lung infiltrate/pneumonia started on broad-spectrum antibiotics Clopidogrel held this morning Review of Systems Review of Systems: All systems reviewed & are unremarkable except as noted in HPI & below Physical Exam Physical Exam: General: Comfortable HEENT: Sclerae anicteric Lungs: Clear to auscultation bilaterally, few crackles on right Cardiac: Regular with premature beats, 2/6 holosystolic murmur. Diminished chest wall tenderness. JVP 78 Vascular: 2+ radial Abdomen: Soft, nontender Extremities: Well perfused, trace ankle edema Neuro: Nonfocal Psych: Alert orient x3, normal affect and mood Results & Data Vital Signs (Past 12 Hours) Vital Signs Temp Pulse Pulse Resp BP Pulse Ox Pulse Ox 07/01/24 10:00 95 07/01/24 08:14 97.7 F 91 H 22 125/73 97 07/01/24 08:00 07/01/24 08:00 87 07/01/24 03:40 98.1 F 99 H 20 163/94 H 93 O2 Del Method O2 Del Method O2 Flow Rate O2 Flow Rate 07/01/24 10:00 Nasal Cannula 4 07/01/24 08:14 Nasal Cannula 5 07/01/24 08:00 Nasal Cannula 6 07/01/24 08:00 07/01/24 03:40 Oxymask PG Care Time/CCT Total # of Minutes Spent Total Time Spent with Patient: Total time spent is greater than 50% in coordination of care (as documented) at patient's floor/unit and/or counseling patient: Coding Level of Care Code 06265 SUB INP/OBS CARE 3/50MIN Diagnoses Chest pain R07.9 Chest pain type: unspecified (1) Chest pain Chest pain type: unspecified Qualified Code(s): R07.9 - Chest pain, unspecified
[2024-07-01] MEDS: CYANOCOBALAMIN 1000 MCG/ML VIAL IM SCH (15:25)
[2024-07-01] MEDS: FERROUS SULFATE 325 MG TAB PO SCH (15:29)
[2024-07-01] MEDS: FUROSEMIDE 40 MG/4 ML VIAL IV ONE (15:54)
[2024-07-01] MEDS ORDERED: VANCOMYCIN HCL 1,250 MG in SODIUM CHLORIDE 0.9% 250 ML IV SCH (16:00)
[2024-07-02 07:18] LABS: Est GFR (African American) 63.3 ml/min; Est GFR (Non-African American) 54.6 ml/min
[2024-07-02] MEDS: PANTOprazole 40 MG TAB PO SCH (08:26)
[2024-07-02 09:20] LABS: BUN Creatinine Ratio 20.5 (10-20); Calcium 8.9 mg/dl (8.6-10.3); Creatinine Clr Calc Pharmacy 46.8 ml/min; Est GFR (African American) 61.4 ml/min; Potassium 3.8 mmol/L (3.5-5.1)
--- NOTE | 2024-07-02 12:02 | Hospitalist Progress Note ---
Date of Service July 02, 2024 Assessment & Plan (1) Right upper lobe pneumonia: Plan: 88yo male with known CAD s/p multiple stents (6 years ago), h/o 2 STEMIs, known distal occlusion of LAD presented with substernal chest pain that radiated to the left arm and back, c/o dizziness. Ruled out for ACS, was in new onset rapid afib. Cardiology consulted. Chest pain easily reproducible on palpation consistent with MSK pain. Rate control improved with metoprolol. Evening of 06/30-07/01 developed new onset hypoxia. noncontrast chest CT with extensive RUL pneumonia. RUL pneumonia with some hemoptysis - chest CT - prior left lobectomy, extensive RUL infiltrates, emphysematous changes -continue ertapenem for now. Has reported rash with PCN and cephalosporin -MRSA nares negative stopped vancomycin -hemoptysis resolved resume apixaban and plavix He has history of esophageal stricture dilation. Reports solid and liquid regurgitation and having to swallow twice at times. This puts him at risk for aspiration pneumonia. Reviewed previous GI notes - had EGD for dysphagia 10/30/22 normal esophagus, was dilated with 54Fr, PPI recommended, neck CT same time nothing significant. -will restart PPI to see if symptoms improve, follow up with gastroenterology to consider repeat EGD (2) Atrial fibrillation: Plan: New onset rapid atrial fibrillation at time of admission Continue metoprolol, apixaban. Converted back to NSR TSH 5.765 and normal T4, likely euthyroid sick, recheck TSH as outpatient in 4-6 weeks -TTE 06/29/2024 EF 35 to 40%, small pericardial effusion, moderate pulmonary hypertension. (3) Chest pain: Plan: tenderness to palpation of the lateral left chest wall consistent with musculoskeletal pain. Serial troponins negative and no EKG changes other than afib. -continue acetaminophen and treated with short course of prednisone - pain and tenderness resolved so stop prednisone Plan CAD - further ischemic evaluation not recommended right now -changed brilinta to plavix, plavix load given AM of 06/30. Will be on plavix and apixaban -carvedilol replaced with metoprolol for better rate control -statin intolerant, continue zetia CHF - patient with ICM, HFrEF 40-45% per echo 02/10/24 with severe mid to apical anterior hypokinesis and mildly hypokinetic lateral an anteroseptal segments; 06/29/2024 EF 35 to 40%, small pericardial effusion, moderate pulmonary hypertension. -continue b-gene -resume valsartan -lasix 40 mg IV given 07/01 with good response. appears euvolemic today Complicated Migraine -Hold Verapamil for now Hyperlipidemia -Continue Zetia Microcytic hypochromic anemia -iron stores may be a little low - oral replacement B12 deficiency - started IM (day 2) then oral replacement Gout - continue allopurinol COPD - continue inhalers, not in exacerbation PT/OT DVT Prophylaxis: Anticoagulated with DOAC Admission and Anticipated Discharge Date Admission Date: June 29, 2024 Subjective Feeling much better today. Not short of breath. On 2L O2 No further hemoptysis. Blew nose and had some bloody snot. Chest pain has resolved Urinated a LOT after lasix yesterday Converted to NSR yesterday Physical Exam 2 Physical Exam: PHYSICAL EXAMINATION Last 24h vital signs reviewed, see documentation in flowsheet General: awake sitting in bed HEENT: Normocephalic, atraumatic, pupils round and equal, sclerae anicteric, no conjunctival injection, moist mucus membranes Lungs:CTAB much improved no wheezing. Heart: Regular rate and rhythm, no murmurs. No JVD Abdomen: Soft, nontender, nondistended. Bowel sounds present. Extremities: Warm, dry, well-perfused. No extremity edema. Neuro: Alert and oriented x 4, face symmetric, moves 4 extremities well Psych: Normal affect and behavior Results & Data Results & Data Vital Signs (Past 12 Hours) Vital Signs Temp Pulse Pulse Resp BP Pulse Ox O2 Del Method 07/02/24 11:00 36.6 C 90 18 116/73 93 Nasal Cannula 07/02/24 08:00 Nasal Cannula 07/02/24 08:00 92 H 07/02/24 07:49 36.7 C 98 H 20 145/72 H 97 Nasal Cannula 07/02/24 03:20 36.4 C L 89 19 136/76 98 Nasal Cannula 07/02/24 00:39 89 O2 Flow Rate 07/02/24 11:00 07/02/24 08:00 4 07/02/24 08:00 07/02/24 07:49 07/02/24 03:20 07/02/24 00:39 Laboratory Results 07/01/24 04:12 07/02/24 06:18 PG Care Time/CCT Total # of Minutes Spent Total Time Spent with Patient: Total time spent is greater than 50% in coordination of care (as documented) at patient's floor/unit and/or counseling patient: Coding Level of Care Code 95736 SUB INP/OBS CARE 2/35MIN Diagnoses Right upper lobe pneumonia J18.9 Atrial fibrillation I48.91 Chest pain R07.9 Chest pain type: unspecified (3) Chest pain Chest pain type: unspecified Qualified Code(s): R07.9 - Chest pain, unspecified
[2024-07-03 07:28] VITALS: RESP 20; TEMP 98.2; O2SAT 90
[2024-07-03] MEDS ORDERED: ALBUTEROL HFA 8 GM INHALER INH PRN (07:58)
[2024-07-03 08:19] LABS: Creatinine Clr Calc Pharmacy 53.9 ml/min; Est GFR (African American) 72.8 ml/min; Est GFR (Non-African American) 62.8 ml/min
[2024-07-03] MEDS: CLOPIDOGREL BISULFATE 75 MG TAB PO SCH ×2 (08:45)
[2024-07-03] MEDS: VALSARTAN 80 MG TAB PO SCH (08:46)
--- NOTE | 2024-07-03 10:00 | Discharge Summary ---
Discharge Summary Date of Service July 03, 2024 Principal Dx & Hospital Course #1 = Principal Diagnosis (1) Atrial fibrillation: 88yo male with known CAD s/p multiple stents (6 years ago), h/o 2 STEMIs, known distal occlusion of LAD presented with substernal chest pain that radiated to the left arm and back, c/o dizziness. Ruled out for ACS, was in new onset rapid afib upon presentation. Cardiology consulted. Chest pain easily reproducible on palpation consistent with MSK pain. Rate control improved with metoprolol. Evening of 06/30-07/01 developed new onset hypoxia. noncontrast chest CT with extensive RUL pneumonia which was treated with broad spectrum antibiotics. No longer requiring supplemental O2 at time of discharge. New onset rapid atrial fibrillation with rapid ventricular rate at time of admission TSH 5.765 and normal T4, likely euthyroid sick, recheck TSH as outpatient in 4-6 weeks -TTE 06/29/2024 EF 35 to 40%, small pericardial effusion, moderate pulmonary hypertension. Started on metoprolol which was dose adjusted for adequate rate control. Carvedilol was stopped. Apixaban was started, aspirin was stopped and brilinta was replaced with plavix. So he'll just be on apixaban and plavix going forward, per recommendation of Dr. Sahu He converted to NSR 48h prior to discharge (2) Right upper lobe pneumonia: RUL pneumonia with some hemoptysis initially - chest CT - prior left lobectomy, extensive RUL infiltrates, emphysematous changes -treated with ertapenem in hospital which was changed to oral levaquin at discharge to complete total 7d course. Has reported rash with PCN and cephalosporin -MRSA nares negative -hemoptysis resolved He has history of esophageal stricture dilation. Reports solid and liquid regurgitation and having to swallow twice at times. This puts him at risk for aspiration pneumonia. Reviewed previous GI notes - had EGD for dysphagia 10/30/22 normal esophagus, was dilated with 54Fr, PPI recommended, neck CT same time nothing significant. -will restart PPI to see if symptoms improve, follow up with gastroenterology to consider repeat EGD (3) Chest pain: tenderness to palpation of the lateral left chest wall consistent with musculoskeletal pain. Serial troponins negative and no EKG changes other than afib. -treated with APAP and short course of prednisone - pain and tenderness resolved Plan CAD - further ischemic evaluation not recommended right now by paper machine back tender -changed Brilinta to Plavix, Plavix load given AM of 06/30. Will be on plavix and apixaban -carvedilol replaced with metoprolol for better rate control -statin intolerant, continue zetia Chronic HFrEF Ischemic cardiomyopathy, EF 40-45% per echo 02/10/24 with severe mid to apical anterior hypokinesis and mildly hypokinetic lateral an anteroseptal segments; 06/29/2024 EF 35 to 40%, small pericardial effusion, moderate pulmonary hypertension. -continue b-gene -resume valsartan -lasix 40 mg IV given 07/01 with good response. appears euvolemic at this time Complicated Migraine -Hold Verapamil for now - resume on follow up with PCP if BP will tolerate and/or any further headache symptoms on the metoprolol Hyperlipidemia -Continue Zetia Microcytic hypochromic anemia -iron stores may be a little low - oral replacement B12 deficiency - started IM (day 2) then oral replacement -please follow up iron and B12 levels Gout - continue allopurinol COPD - continue inhalers, not in exacerbation Notes For Next Care Provider Consider restarting Verapamil if BP adequate and/or if any recurrent headaches Please check follow up labs for iron deficiency, B12 Medication Changes From Visit Stopped aspirin, carvedilol and Brilinta. verapamil held Added metoprolol, apixaban, plavix, pantoprazole Added FeSO4 and B12 po Admission HPI Per Admitting Provider Agnieszka Singleton is an 88yo male with history of CAD - multivessel s/p multiple interventions to the LAD/diagonal, known occluded distal LAD, ICM with EF 40-45% with apical wall motion abnormality, HTN, HLP, COPD, provoked PE after GI surgery in 01/2021 presenting with chest pain. Patient reports sudden onset of severe left sided chest pain this evening. He is not sure if it woke him from sleep or if he woke up then developed the chest pain. He describes the pain as severe, substernal pressure with radiation into the left arm and back. He also had some associated lightheadedness but denies diaphoresis, palpitations, nausea or syncope. Patient took 2 Nitro at home with some improvement. EMS was called and administered additional Nitro with further improvement. Pain is somewhat pleuritic, non-positional. In the ER patient found to be in new onset atrial fibrillation with HR 110's initially Blood pressure has been borderline low ER Course: NSS 500mL x 2 Discharge Exam PHYSICAL EXAMINATION Last 24h vital signs reviewed, see documentation in flowsheet General: awake sitting in bed HEENT: Normocephalic, atraumatic, pupils round and equal, sclerae anicteric, no conjunctival injection, moist mucus membranes Lungs: nonlabored, clear except very faint RUL crackles Heart: Regular rate and rhythm, no murmurs. No JVD Abdomen: Soft, nontender, nondistended. Bowel sounds present. Extremities: Warm, dry, well-perfused. No extremity edema. Neuro: Alert and oriented x 4, face symmetric, moves 4 extremities well Psych: Normal affect and behavior Discharge Plan Discharge Items Patient Disposition: Home - Self-Care Reason For Visit: CHEST PAIN Discharge Diagnosis: Musculoskeletal chest pain Atrial fibrillation Right upper lobe pneumonia Activity: Resume your previous activity Non-emergency contact: Primary Care Provider and Sales Management Trainee Call non-emergency contact if: you have any medication questions, your symptoms worsen and you have a fever Follow-up/Referrals: Juan F Sahu MD [Physician] - Ming Gupta DO [Primary Care Provider] - Diet: Heart Healthy Addtl Attending Provider Instructions: Chest pain was musculoskeletal in nature and has resolved. There was no evidence of heart attack/heart pain You were in a common arrhythmia called atrial fibrillation -carvedilol was switched to metoprolol which is more potent for controlling heart rate in afib -blood thinner (Eliquis) was started to prevent afib-related stroke -brilinta was replaced with plavix (clopidogrel). Stop taking aspirin. -follow up with Dr. Sahu You also had left upper lobe pneumonia (lung infection) -take antibiotic (levofloxacin) for four more days - start this TOMORROW morning because you already got a dose of antibiotic for today in the hospital -stop levofloxacin and call your doctor if you experience any of the following: severe diarrhea especially with abdominal pain or fever within the next 6 months, tendon pain especially Achilles/heel or shoulder, altered mental status -its a good idea to take a probiotic for 2-4 weeks to prevent antibiotic ass ociated diarrhea. These are available over the counter. You are anemic, we found that your iron and B12 levels are low. Taking iron and B12 supplements should help resolve your anemia These are available over the counter: -ferrous sulfate 1 tab every other day -cyanocobalamin (B12) 1000 mcg daily -follow up in primary care Its a good idea to schedule follow up with gastroenterology for your swallowing problems. You might need another dilation. Regurgitation of food or liquids puts you at increased risk for another pneumonia -eat slowly and take small bites of food / small sips of liquids -make sure you are sitting completely upright for 30 minutes after you eat/drink -don't eat/drink within an hour of bedtime -you should take pantoprazole daily to prevent progression of esophageal strictures, and it can help prevent swallowing difficulties Addtl Pneumatic Tester Provider Instructions: We discussed the risks and benefits of anticoagulation, including the risks of gastrointestinal bleeding - seek medical attention if you have black/tarry or bloody stool There is also a very small but real risk of intracranial hemorrhage - related to head trauma or bleeding-type stroke, that can be life threatening. Call 911 if you have altered mental status or symptoms of stroke (weakness or numbness of face/arm/leg, trouble speaking or understanding, trouble with walking/balance Pending Studies at Discharge: No Stand-Alone Forms: My [facility], Smoking Cessation Medications and DC Order Prescriptions: New metoprolol succinate 50 mg Tablet Extended Release 24 Hr 50 mg PO BID Qty: 60 0RF ferrous sulfate 325 mg (65 mg iron) Tablet,Delayed Release (Dr/Ec) 325 mg PO Q48H Qty: 0 0RF clopidogrel 75 mg Tablet 75 mg PO QAM Qty: 30 0RF Eliquis 5 mg Tablet 5 mg PO BID Qty: 60 0RF cyanocobalamin (vitamin B-12) 1,000 mcg tablet 1,000 mcg PO DAILY Qty: 30 0RF levofloxacin 750 mg tablet 750 mg PO DAILY 4 Days Qty: 4 0RF pantoprazole 40 mg tablet,delayed release (DR/EC) 40 mg PO DAILY Qty: 30 0RF Continued Trelegy Ellipta 100-62.5-25 mcg blister with device See Rx Instructions .ROUTE .COMPLEX Qty: 60 6RF Dose Instruction: INHALE 1 PUFF BY MOUTH AND INTO THE LUNGS ONCE DAILY RINSE MOUTH AFTER USE Rx Instructions: INHALE 1 PUFF BY MOUTH AND INTO THE LUNGS ONCE DAILY RINSE MOUTH AFTER USE valsartan [Diovan] 40 mg tablet 20 mg PO QAM Qty: 45 3RF ezetimibe [Zetia] 10 mg tablet 10 mg PO QAM Qty: 90 3RF Galzin 50 mg (zinc) capsule 50 mg PO QAM albuterol sulfate [ProAir HFA] 90 mcg/actuation HFA aerosol inhaler 2 puffs INH QID PRN (Reason: Wheezing) nitroglycerin 0.4 mg tablet, sublingual 0.4 mg sublingual Q5M PRN (Reason: chest pain) Qty: 30 6RF Rx Instructions: do not exceed 3 doses per episode cholecalciferol (vitamin D3) [Vitamin D3] 1,000 unit Capsule 2,000 unit PO HS allopurinol 100 mg tablet 100 mg PO DAILY Held verapamil 120 mg capsule,ext rel. pellets 24 hr 120 mg PO DAILY Hold Instructions: Resume on 07/24/24. hold until you follow up with your doctor Discontinued Brilinta 90 mg tablet 90 mg PO BID Qty: 180 3RF prednisone 10 mg tablet See Rx Instructions .ROUTE .COMPLEX Qty: 15 0RF Rx Instructions: Take 2 tablets PO QD x 5 day, then 1 tablet for 5 days. prednisone 20 mg tablet 20 mg PO DAILY 5 Days Qty: 5 0RF levofloxacin 500 mg tablet 500 mg PO DAILY 5 Days Qty: 5 0RF Prevnar 20 (PF) 0.5 mL syringe 0.5 ml IM ONCE Qty: 0.5 0RF carvedilol [Coreg] 3.125 mg tablet 3.125 mg PO PM aspirin [Adult Aspirin Regimen] 81 mg tablet,delayed release (DR/EC) 81 mg PO QAM Discharge Orders: Discharge Order (Routine); Ordered 07/03/24 Ordered By: Ellen Wilkins/Other Patient Handouts: AFib Preventing Stroke Admission Data Admit Date/Time: 06/29/24 05:52 Attending Provider: Ellen Sue Admit Provider: Yee Resendiz Primary Care Provider: Ming Gupta Other Providers: Yee Resendiz; Edison Cope Jr Other Interventions: Discharge Summary Assessment (RN) Last Done: 07/03/24 11:16 Hospital Stay Data Consultations 06/29/24 05:18 ED Decision to Admit Stat 06/29/24 05:52 Consult Cardiology Routine Diagnostic Imagining Performed 06/30/24 22:39 CT chest diagnostic wo con Urgent Pending Results Patient Have Any Pending Studies at Discharge: No Discharge Instructions Given to Patient (Per Discharging Provider) Chest pain was musculoskeletal in nature and has resolved. There was no evidence of heart attack/heart pain You were in a common arrhythmia called atrial fibrillation -carvedilol was switched to metoprolol which is more potent for controlling heart rate in afib -blood thinner (Eliquis) was started to prevent afib-related stroke -brilinta was replaced with plavix (clopidogrel). Stop taking aspirin. -follow up with Dr. Sahu You also had left upper lobe pneumonia (lung infection) -take antibiotic (levofloxacin) for four more days - start this TOMORROW morning because you already got a dose of antibiotic for today in the hospital -stop levofloxacin and call your doctor if you experience any of the following: severe diarrhea especially with abdominal pain or fever within the next 6 months, tendon pain especially Achilles/heel or shoulder, altered mental status -its a good idea to take a probiotic for 2-4 weeks to prevent antibiotic associated diarrhea. These are available over the counter. You are anemic, we found that your iron and B12 levels are low. Taking iron and B12 supplements should help resolve your anemia These are available over the counter: -ferrous sulfate 1 tab every other day -cyanocobalamin (B12) 1000 mcg daily -follow up in primary care Its a good idea to schedule follow up with gastroenterology for your swallowing problems. You might need another dilation. Regurgitation of food or liquids puts you at increased risk for another pneumonia -eat slowly and take small bites of food / small sips of liquids -make sure you are sitting completely upright for 30 minutes after you eat/drink -don't eat/drink within an hour of bedtime -you should take pantoprazole daily to prevent progression of esophageal strictures, and it can help prevent swallowing difficulties Total Time Total Time Spent Total Time Spent (In Minutes): I personally spent: 40 minutes today on clinical care activities including: reviewing chart notes and vital signs examining and counseling the patient counseling the patient's family writing orders, prescriptions, discharge instructions documentation Coding Level of Care Code 64006 INP/OBS DISCH >30 MIN Diagnoses Atrial fibrillation I48.91 Right upper lobe pneumonia J18.9 Chest pain R07.9 Chest pain type: unspecified
[2024-07-03 11:24] VITALS: BP 129/93; PULSE 78
--- NOTE | 2024-07-04 14:53 | Coding Query ---
CODING QUERY To promote full compliance with coding requirements relating to patient care, provider participation is requested in all cases of demurrage worker uncertainty. Please assist us with the question(s) below: Coding Question(s): Right Upper Lobe Pneumonia is documented in the record with the 07/01 & 07/02 Progress Notes and Discharge Summary documenting, "He has history of esophageal stricture dilation. Reports solid and liquid regurgitation and having to swallow twice at times. This puts him at risk for aspiration pneumonia". Please specify below, in your clinical opinion, regarding the Right Upper Lobe Pneumonia: (x ) RUL Pneumonia is possible Aspiration Pneumonia ( ) RUL Pneumonia is Other: Please Specify ( ) RUL Pneumonia is Unspecified Physician's Response(s): Thank you Marcie Au Principal Diagnosis: "that condition established after study, to be chiefly responsible for occasioning the admission of the patient to the hospital for care." Co-Existing Principal Diagnosis: "when two or more diagnoses equally meet the criteria for principal diagnosis as determined by the circumstances of admission, diagnostic work up, and/or therapy provided, and the Alphabetic Index, Tabular List, or another coding guideline does not provide sequencing direction, any one of the diagnoses may be sequenced first." "When the physician has documented what appears to be a current diagnosis in the body of the record, but has not included the diagnosis in the final diagnostic statement, the physician should be asked whether the diagnosis should be added." (Source Coding Clinic 2 QTR90. p3-4) VINOD
== END 2024-07-03 12:24 | disposition home or self-care (01) | DRG 178 ==
LOC: SUATTDRO → EDINP 04:29 → ED 04:29 → SUATTDRO 05:52 → 2E 10:37

== ENCOUNTER 2025-09-26 09:34 | Observation (INO) ==
--- NOTE | 2025-09-18 15:23 | Anesthesiology Consultation ---
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 Patient advised could f/u prn with neurology with notation for consideration to repeat head MRA in 2 years. Case discussed in detail with Dr. 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 I contacted patient who states that his migraines are stable and denied any new or changed symptoms. He states cough and infectious symptoms have resolved. - PCP office visit 09/06/25 [place]: "...seen on 07/25/25 and does not feel it went away fully...was prescribed Levaquin and a prednisone burst. Complains of sinus congestion and a productive cough. Mucus is yellow. Has trouble breathing depending on the weather, worse if it is damp out...Using Trelegy and albuterol PRN...Sent in another round of Levaquin. Also sent in a longer prednisone taper..." - cardiology office visit 08/07/25 [place]: "...multivessel CAD -hx repeated LAD/diagonal interventions, known occluded distal LAD. Ischemic [id number]% with apical WMA, last echo 06/2024; ARB/BB. Paroxysmal AFnew 06/2024: [id number]; asymptomatic, on Eliquis/BB...COPD/prior left lobectomy for lung CA...provoked PE in the setting of GI surgery 01/2021. Recurrent epistaxis. Small to moderate pericardial effusionsmall echo 06/2024. Dysphagiaimproved post esophageal dilation 10/2022; ?aspiration 06/2024...Continues to do well from a cardiac standpoint. Very active with no recurrent angina. Has had "thumping" sensation in his chest. No associated symptoms. may be related to longstanding frequent PVCs, probably non-cardiac. Will continue to monitor. On exam today clinically in sinus rhythm with premature beats, no signs of heart failure on exam...Follow-up in 6 months with his ..." Chart Review Chart Review: Acceptable Risk for Surgery and Patient NOT seen in Pre Admission Testing History Surgery Operation Date: 09/26/25 13:20 Proposed Procedures p Transurethral Resection Prostate - Juan F Wilson MD Height/Weight Height: 6 ft Weight: 80.739 kg Allergies Allergy/AdvReac Type Severity Reaction Status Date / Time Cephalosporins Allergy Intermediate Rash Verified 09/18/25 14:04 cephalexin [From Keflex] Allergy Unknown Hives Verified 09/18/25 14:04 fluticasone Allergy Unknown Rash Verified 09/18/25 14:04 Iodinated Contrast Media Allergy Unknown Hives Verified 09/18/25 14:04 Penicillins Allergy Unknown Rash Verified 09/18/25 14:04 pravastatin Allergy Unknown myalgias Verified 09/18/25 14:04 salmeterol Allergy Unknown Rash Verified 09/18/25 14:04 rosuvastatin AdvReac Mild MUSCLE Verified 09/18/25 14:04 ACHES atorvastatin AdvReac Unknown MUSCLE Verified 09/18/25 14:04 ACHES fluvastatin AdvReac Unknown MUSCLE Verified 09/18/25 14:04 ACHES lisinopril AdvReac Unknown Cough Verified 09/18/25 14:04 prednisone AdvReac Unknown Unknown - Verified 09/18/25 14:04 see notes Medications Home Medications Medication Instructions Recorded Confirmed Last Taken cholecalciferol (vitamin D3) 25 2,000 unit PO HS 06/25/18 09/18/25 09/15/24 mcg (1,000 unit) capsule (Vitamin D3) zinc acetate 50 mg (zinc) capsule 50 mg PO QAM 03/23/20 09/18/25 09/15/24 (Galzin) cyanocobalamin (vitamin B-12) 1,000 mcg PO DAILY #30 tabs 07/03/24 09/18/25 09/15/24 1,000 mcg tablet pantoprazole 40 mg tablet,delayed 40 mg PO BID #60 tabs 10/20/24 09/18/25 Unknown release valsartan 40 mg tablet (Diovan) 20 mg (1/2 x 40 mg) PO QAM #45 tabs 03/09/25 09/18/25 Unknown ezetimibe 10 mg tablet (Zetia) 10 mg PO QAM #90 tabs 03/15/25 09/18/25 Unknown nitroglycerin 0.4 mg sublingual 0.4 mg sublingual Q5M PRN chest 08/08/25 09/18/25 Unknown tablet pain #30 tabs albuterol sulfate 90 mcg/actuation 2 inh inhalation QID PRN Wheezing 09/04/25 09/18/25 Unknown aerosol inhaler #6.7 grams allopurinol 100 mg tablet 100 mg PO QAM 09/18/25 09/18/25 Unknown apixaban 5 mg tablet (Eliquis) 5 mg PO BID 09/18/25 09/18/25 Unknown clopidogrel 75 mg tablet 75 mg PO QAM 09/18/25 09/18/25 Unknown fluticasone fur. 100 mcg-umeclid 1 ea inhalation QAM 09/18/25 09/18/25 Unknown 62.5 mcg-vilant 25 mcg inhalat.powder (Trelegy Ellipta) metoprolol succinate 50 mg 50 mg PO BID 09/18/25 09/18/25 Unknown tablet,extended release 24 hr prednisone 1 mg tablet 0 mg PO UD 09/18/25 09/18/25 Unknown tamsulosin 0.4 mg capsule 0.4 mg PO QAM 09/18/25 09/18/25 Unknown verapamil 120 mg 24 hr 120 mg PO QAM 09/18/25 09/18/25 Unknown capsule,extended release Past Medical History Medical History Asthma Breathing stable , denies recent flare. Atrial fibrillation dx approx 2022/no cardioversion, follows with abigail pt reports every once in awhile it skips a beat BPH (benign prostatic hyperplasia) CAD (coronary artery disease) S/p stents x4 (2015) to LAD S/p stent (2018) to D1 Known occluded distal LAD per cardio records pat call 09/18/25: only 4 stents total to pt knowledge, 2 stents in 2016 and 2 stents in 2019. Cerebral aneurysm Followed by Neuro- only follows PRN with neurology- due for repeat head MRA 08/2024 Head MRA 09/26/21= "Unchanged appearance of 2 small carotid artery aneurysms as detailed above. These measure up to 2.5 mm." pat call 09/18/25: continues to follow neuro only prn. last scan approx 2020. Chronic kidney disease pt not sure further details. follows w/ pcp/no dialysis. Chronic osteoarthritis COPD (chronic obstructive pulmonary disease) breathing stable per pt - no recent exacerbation Cutaneous lymphoma currently getting light treatment pat call 09/18/25 - tx completed fall/? date details. next follow up in nov 2024. Dyslipidemia Esophageal dysphagia sometimes Hemiplegic migraine x2 once in the left side and once in the right side/both in 2018. released me from that. no current issues. History of COVID-19 (10/2022) October 2022 -> generalized weakness, joint pain, cough, and nausea. treated inpatient at [facility]. x 2 History of esophageal dilatation (2022) multiple times , most recently in 2022 History of lung cancer (1998) hx lobectomy, chemo and radiation. History of pericardial effusion History of UTI pt reports in prostate and urinary tract. tx with abx and prednisone. prednisone completed 09/18/25. abx completed week of sep 11 2025. to pt knowledge infection resolved. Urine 09/14/25 [place] - pt did not hear anything regarding results. Hx of gout Hx of Lyme disease (2017) Hx of migraines Hx pulmonary embolism (01/2021) Post-op (provoked in the setting of GI surgery) (01/2021) treated with Xarelto (Xarelto later discontinued after GI bleed) (no current problems) Hypertension Iron deficiency anemia iron infusion in past; most recent approx Jul 2025 Ischemic cardiomyopathy pt not aware of this dx Laryngopharyngeal reflux Lower urinary tract symptoms (LUTS) Multifocal atrial tachycardia "just the afib" per pt Neural hearing loss Pancreatic cyst Stable per 01/31/21 Abdomen/Pelvis CT scan Pulmonary emphysema Sensorineural hearing loss of both ears Solitary pulmonary nodule 12/23/21 CT findings "stable" per pulmonary workload note 12/26/21 Stage 3 chronic kidney disease STEMI (ST elevation myocardial infarction) hx x 2: 2015 (2 stents), 2019 (2 stents) follows with dr. hayes, cardio Tinnitus of right ear Past Family History Family History Brother Cancer Hypertension Sister Diabetes Cancer Hypertension Mother Diabetes Hypertension Unknown Coronary heart disease Father Coronary heart disease Daughter Breast cancer Family history of adverse reaction to anesthesia n/v Other Lung cancer Myocardial infarction Denies family history of Ovarian cancer Prostate cancer Hearing loss No family history of bleeding disorder Heart disease Allergies Colorectal cancer Stroke Asthma Past Surgical History Surgical History H/O left knee surgery (02/2022) Left knee polyexchange tibial component (02/2022 at [facility] with Dr Mcdowell) H/O right inguinal hernia repair (04/2023) Open Right Inguinal Hernia Repair(Right) H/O sinus surgery nasal cautery History of arthroscopy of left shoulder History of cardiac catheterization (~2018) S/p stents x4 (2015), [facility], [facility] S/p stent (2019) to D1, stemi, [facility] Known occluded distal LAD per cardio records - follows with dr. hayes 09/18/25: x2 , 2015 for MA (2 stents), 2019 for MA (2 stents).Follow w/Dr. Hayes. History of colonoscopy 2020 - Non-bleeding hemorrhoids. No polyps. No specimens collected. History of esophagogastroduodenoscopy (EGD) with dilation of esophagus - 10/30/22 History of excision of mass (2017) Neck (2017) x2 Hx of cataract surgery R/L Hx of heart artery stent S/p stents x4 (2015) S/p stent (2019) to D1 Known occluded distal LAD per cardio records - follows with dr. hayes pat call 09/18/25: pt reports hx 2 MA in 2015 and 2018, 2 stents each time. total of 4 stents. S/P appendectomy S/P excision of lipoma S/P laparoscopic cholecystectomy (01/28/21) Lap samy (01/28/21): Grade view 1, MAC#4, ETT 7.5 at [facility] S/P lobectomy of lung (1998) Left (February 1999 at [facility]) d/t lung ca S/P total knee arthroplasty Left Social History Smoking Status: Never smoker tobacco type: cigarettes Do You Dip or Chew Tobacco: No Hx Alcohol Use: No Hx Substance Use: No substance use type: does not use Lab Results Anesthesia Preop Results Results Anesthesia Widget: WBC 8.71 K/ul (4.8-10.8) 09/14/25 Hgb 12.2 g/dL (14.0-18.0) L 09/14/25 Hct 38.6 % (42.0-52.0) L 09/14/25 Plt 176 K/uL (130-400) 09/14/25 Na 140 mmol/L (136-145) 09/14/25 K 3.8 mmol/L (3.5-5.1) 09/14/25 Cl 105 mmol/L (98-107) 09/14/25 CO2 30 mmol/L (21-32) 09/14/25 BUN 29 mg/dl (6-23) H 09/14/25 Creat 1.39 mg/dl (0.6-1.4) 09/14/25 Glucose Level 118 mg/dl (70-99(Fasting)) H 09/14/25 Testing Electrocardiogram Date: 09/14/25 Afib, rate 76 bpm Left axis deviation LVH with QRS widening and repolarization abnormality Cannot rule out septal infarct cited on or before 09/03/2020 EKG Chest X-Ray Date: 01/11/25 1. Apical pleural thickening on left side with reduced lung volume. 2. Left hemidiaphragm is elevated could be due to visceromegaly/eventeration. 3. No gross interval change seen when compared to prior imaging. Echocardiogram Date: 06/29/24 LVEF 35-40% Severe apical and septal/anteroseptal hypokinesis Mild cLVH Mild aortic regurgitation Mild mitral regurgitation Small pericardial effusion. No echocardiographic indications of tamponade Moderate pulmonary hypertension. Est PASP 50-55 mmHg Compared with prior study on 02/10/2024: AF is new. LV function mildly reduced from prior. Elevated PA/RA pressures is new. Pericardial effusion is smaller Other Testing Head MRA 09/26/21 1. The intracranial vessels are patent. 2. Unchanged appearance of 2 small carotid artery aneurysms as detailed above. These measure up to 2.5 mm.
[2025-09-26] MEDS: LR 15ML/HR IV SCH (10:01)
[2025-09-26] MEDS ORDERED: HYDROmorphone INJ 1 MG/ML SYRINGE IV PRN (10:18)
[2025-09-26] MEDS ORDERED: PROMETHAZINE HCL 6.25 MG in SODIUM CHLORIDE 0.9% 50 ML IV PRN (10:18)
[2025-09-26] MEDS ORDERED: ATROPINE SULFATE 0.1 MG/ML 10ML SYR IV PRN (10:18)
[2025-09-26] MEDS ORDERED: PROPOFOL IV EMULSION 10 MG/ML 20 ML VIAL IV ONE (10:26)
--- NOTE | 2025-09-26 10:38 | History & Physical Bridge Note ---
Date of Service September 26, 2025 History & Physical Bridge Note I have examined the patient, reviewed the History & Physical and in the interval since the performance of the History & Physical I have noted the following changes of clinical significance: no changes noted
[2025-09-26] MEDS ORDERED: KETAMINE HCL 10MG/ML SYR ONE (11:01)
[2025-09-26] MEDS: CIPROFLOXACIN / D5W 400 MG/200 ML BAG IV SCH ×2 (11:12→23:06)
[2025-09-26] MEDS ORDERED: LIDOCAINE 2% 2 ML VIAL/AMP(20MG/ML) INFIL ONE (11:22)
[2025-09-26] MEDS ORDERED: PHENYLEPHRINE 100MCG/ML 5ML SYR ONE (11:31)
[2025-09-26] MEDS ORDERED: ONDANSETRON INJ 2 MG/ML 2 ML VIAL ONE (11:34)
--- NOTE | 2025-09-26 11:55 | Operative Report ---
PG Post Operative Report Pre & Post Diagnosis Operation Date: 09/26/25 10:50 Pre-Op Diagnosis: Benign Prostatic Hyperplasia with Lower Urinary Tract Symptoms Post-Op Diagnosis: Benign Prostatic Hyperplasia with Lower Urinary Tract Symptoms I identified the patient and participated in the time-out.: Yes Procedure Operation Date: 09/26/25 10:50 Actual Procedures p Transurethral Resection of Prostate(Not Applicable) - Juan F Wilson MD Surgeon Juan F Wilson MD Radioisotope Technologist none Estimated Blood Loss 0 Findings Consistent with Post-Op Diagnosis Specimens Prostate chips Description of Procedure The patient was identified in the preoperative holding area, appropriate informed consents were reviewed and completed and the patient was transferred to the operative suite. Upon arrival, appropriate antibiotics and anesthesia were administered and the patient was placed in dorsal lithotomy position and prepped and draped in sterile fashion. Beginning case I passed a 27 Guamanian resectoscope with 30 degree lens visual after repair inspection revealed healthy appearing urethra and a moderately enlarged prostate with a pedunculated intravesical median lobe. Rest of the bladder was actually relatively healthy with some mild trabeculation and no other mucosal abnormalities. Of note, the intravesical median lobe came very close to the right UO there was a bit more buffer on the left. After my inspection I carefully resected the intravesical median lobe with care to avoid resection of the right UO. My resection came close but did not involve it. I then proceeded to resect some posterior prostate before resecting lateral left lobe and right lateral lobe. I trimmed that of apical and anterior tissue and t hen obtained meticulous hemostasis. All chips were evacuated. Although I think we have sufficiently open the prostatic urethra to improve his urination, I certainly did not perform an ultra aggressive TURP to try to resect all tissue. I concluded the case by placing a 22 Gu[place]ian Rossi catheter with 20 cc of water placed in the balloon. He was reversed of anesthesia and taken to the recovery room in stable condition. He will be kept overnight for observation. Will plan to resume his Plavix and Eliquis over the course of the next few days. I attest to the content of the Intraoperative Record and any orders documented therein. Any exceptions are noted below.
[2025-09-26] MEDS ORDERED: ALBUTEROL HFA 8 GM INHALER INH PRN (13:25)
[2025-09-26] MEDS ORDERED: NITROGLYCERIN SL 0.4 MG/TAB TAB SL PRN (13:25)
--- NOTE | 2025-09-26 14:56 | Anesthesiology Progress Note ---
Date of Service September 26, 2025 Anesthesia Post Procedure Vital Signs Vital Signs: Temp Pulse Pulse Resp BP Pulse Ox O2 Del Method 09/26/25 14:17 36.6 C 82 18 130/60 96 Room Air 09/26/25 13:46 36.4 C L 78 16 150/69 H 98 Room Air 09/26/25 13:15 71 16 136/72 97 Room Air 09/26/25 13:00 73 16 132/70 98 Room Air 09/26/25 12:45 72 18 129/65 100 Room Air 09/26/25 12:35 73 19 129/65 100 Room Air 09/26/25 12:20 36.4 C L 75 21 136/76 96 Room Air 09/26/25 12:10 80 16 139/76 94 Room Air 09/26/25 12:00 78 19 146/82 H 100 Oxymask 09/26/25 11:54 36.5 C 115 H 17 131/69 95 Oxymask 09/26/25 10:02 36.6 C 85 20 165/87 H 100 Room Air O2 Flow Rate 09/26/25 14:17 09/26/25 13:46 09/26/25 13:15 09/26/25 13:00 09/26/25 12:45 09/26/25 12:35 09/26/25 12:20 09/26/25 12:10 09/26/25 12:00 2 09/26/25 11:54 4 09/26/25 10:02 Transfer of Care Handoff Completed per policy Notes Mental Status: alert / awake / arousable and participated in evaluation Nausea / Vomiting: adequately controlled Pain: adequately controlled Airway Patency, RR, SpO2: stable & adequate BP & HR: stable & adequate Hydration State: stable & adequate Anesthetic Complications: no major complications apparent and Pt Satisfied with anesthetic care
[2025-09-26] MEDS: ACETAMINOPHEN 500 MG TAB PO PRN (15:05)
[2025-09-26] MEDS ORDERED: PHENAZOPYRIDINE HCL 200 MG TAB PO PRN (19:11)
[2025-09-26] MEDS: METOPROLOL SUCC 50MG EXT REL TAB PO SCH (20:17)
[2025-09-27 06:58] LABS: Hematocrit (blood only) 36.3 % (42.0-52.0); Hemoglobin 11.3 g/dL (14.0-18.0); Mean Corpuscular Hemoglobin 24.8 pg (25.0-34.0); Mean Corpuscular Volume 79.6 fL (80.0-100.0); Platelet Count 126 K/uL (130-400); RDW Standard Deviation 54.3 fL (36.4-46.3); Red Blood Count 4.56 M/uL (4.70-6.10); White Blood Count 7.29 K/ul (4.8-10.8)
[2025-09-27 07:17] LABS: Anion Gap 7.0 (3-11); Blood Urea Nitrogen 16.0 mg/dl (6-23); Calcium 8.7 mg/dl (8.6-10.3); Carbon Dioxide 27.0 mmol/L (21-32); Chloride 103.0 mmol/L (98-107); Creatinine Clr Calc Pharmacy 35.5 ml/min; Glucose 97.0 mg/dl (70-99(Fasting)); Potassium 4.5 mmol/L (3.5-5.1); Sodium 137.0 mmol/L (136-145)
[2025-09-27] MEDS: FLUTICASONE FUROATE 100MCG 14 PUFFS/INHALER INH SCH (08:14)
[2025-09-27] MEDS: UMECLIDINIUM/VILANTEROL 62.5/25MCG 7 PUFFS/INHALER INH SCH (08:44)
[2025-09-27] MEDS: VERAPAMIL HCL 120 MG TABCR PO SCH (08:45)
[2025-09-27] MEDS: EZETIMIBE 10 MG TAB PO SCH (08:45)
[2025-09-27] MEDS ORDERED: NON-FORMULARY MEDICATION (Fluticasone-Umeclidin-Vilanter [Trelegy Ellipta] 100-62.5-25 mcg INH SCH (09:00)
--- NOTE | 2025-09-27 09:15 | Urology Progress Note ---
Date of Service September 27, 2025 Assessment & Plan (1) BPH w urinary obs/LUTS: Plan Postop day #1 status post TURP Plan for voiding trial now He is on Eliquis and Plavix Will plan to resume Eliquis on Thursday, Plavix on Thursday I did discuss that I anticipate he will have some hematuria particularly as he resumes these medications Admission and Anticipated Discharge Date Admission Date: September 26, 2025 Subjective Doing okay this morning Had some mild bladder spasms overnight but otherwise tolerated the catheter well Physical Exam Physical Exam: Urine pink but relatively clear Results & Data Vital Signs (Past 12 Hours) Vital Signs Temp Pulse Resp BP Pulse Ox O2 Del Method 09/27/25 07:53 36.1 C L 85 20 155/80 H 95 Room Air 09/27/25 04:00 36.7 C 82 16 138/72 95 Room Air 09/26/25 23:23 36.5 C 74 18 122/65 97 Room Air PG Care Time/CCT Total # of Minutes Spent Total Time Spent with Patient: Total time spent is greater than 50% in coordination of care (as documented) at patient's floor/unit and/or counseling patient: Coding Level of Care Code None Diagnoses BPH w urinary obs/LUTS N40.1; N13.8
[2025-09-27] MEDS: VALSARTAN 80 MG TAB PO SCH (09:37)
--- NOTE | 2025-09-27 11:16 | Discharge Summary ---
Date of Service September 27, 2025 Admission HPI Per Admitting Provider Patient with BPH with obstruction here for transurethral resection of prostate. Principal Diagnosis BPH with urinary obstruction Discharge Exam Constitutional well developed and well nourished; no acute distress Respiratory normal respiratory effort; no respiratory distress and no labored breathing Gastrointestinal (Abdomen) Inspection/Auscultation: abdomen normal to inspection Musculoskeletal Head/Neck/Chest: normocephalic Neurologic moves all extremities and awake Psychiatric Orientation: alert and oriented x 3 Discharge Data Allergies Allergy/AdvReac Type Severity Reaction Status Date / Time Cephalosporins Allergy Intermediate Rash Verified 09/26/25 10:00 cephalexin [From Keflex] Allergy Unknown Hives Verified 09/26/25 10:00 fluticasone Allergy Unknown Rash Verified 09/26/25 10:00 Iodinated Contrast Media Allergy Unknown Hives Verified 09/26/25 10:00 Penicillins Allergy Unknown Rash Verified 09/26/25 10:00 pravastatin Allergy Unknown myalgias Verified 09/26/25 10:00 salmeterol Allergy Unknown Rash Verified 09/26/25 10:00 rosuvastatin AdvReac Mild MUSCLE Verified 09/26/25 10:00 ACHES atorvastatin AdvReac Unknown MUSCLE Verified 09/26/25 10:00 ACHES fluvastatin AdvReac Unknown MUSCLE Verified 09/26/25 10:00 ACHES lisinopril AdvReac Unknown Cough Verified 09/26/25 10:00 prednisone AdvReac Unknown Unknown - Verified 09/26/25 10:00 see notes Procedures Performed Operation Date: 09/26/25 10:50 Actual Procedures p Transurethral Resection of Prostate(Not Applicable) - Juan F Wilson MD Hospital Course (1) BPH w urinary obs/LUTS: Plan Postop day #1 status post TURP Plan for voiding trial now He is on Eliquis and Plavix Will plan to resume Eliquis on Thursday, Plavix on Thursday I did discuss that I anticipate he will have some hematuria particularly as he resumes these medications Patient voiding after catheter removal, ready for discharge noworders placed Expected clinical course reviewed, all questions answered Total Time Total Time Spent Total Time Spent (In Minutes): 25 Discharge Plan Discharge Items Patient Disposition: Home - Self-Care Reason For Visit: BPH with Lower Urinary Tract Symptoms, Other Obstr Discharge Diagnosis: BPH with lower urinary tract symptoms Activity: Per Instructions section Lifting: No more than 25 pounds Bathing Comment: Okay to shower after discharge Sexual Activity: Wait until after follow-up appointment Exercise/Sports: Wait until after follow-up appointment Non-emergency contact: Surgeon and Urologist Call non-emergency contact if: you have a fever and your temperature is above 101 Follow-up/Referrals: Ming Gupta DO [Primary Care Provider] - Diet: Regular Addtl Attending Provider Instructions: Please take all medications as prescribed and keep all follow-ups as scheduled. Please call our office at [phone] with any questions, concerns or need to reschedule appointments for any reason. We are happy to assist you. You can resume Eliquis on Saturday 09/29 You can resume Plavix on Sunday 09/30 Tips for your recovery at home: Dont be alarmed by brownish or reddish blood or clots in your urine. This is a result of the procedure. This may occur off and on for weeks to months after the procedure but should continue to improve. Drink plenty of fluids during the day (enough to keep your urine very light colored). This will help keep a healthy flow of urine. Do not lift >25 lbs until your followup Avoid constipation. Please use a stool softener (Colace) for the first two weeks after your procedure Be sure to finish the antibiotics as prescribed. If you go home with a catheter, please wash tubing where it enters your body twice daily with mild soap (Dove or Dial). Once your catheter is removed, expect some blood in your urine and some burning when you urinate. You should have an appointment to have this removed, if you do not please call our office to arrange. Pending Studies at Discharge: Yes Stand-Alone Forms: My [facility] [employer], Smoking Cessation Medications and DC Order Prescriptions: Continued pantoprazole 40 mg tablet,delayed release (DR/EC) 40 mg PO BID Qty: 60 5RF valsartan [Diovan] 40 mg tablet 20 mg PO QAM Qty: 45 3RF ezetimibe [Zetia] 10 mg tablet 10 mg PO QAM Qty: 90 3RF albuterol sulfate 90 mcg/actuation HFA aerosol inhaler 2 inh INH QID PRN (Reason: Wheezing) Qty: 6.7 3RF Galzin 50 mg (zinc) capsule 50 mg PO QAM nitroglycerin 0.4 mg tablet, sublingual 0.4 mg sublingual Q5M PRN (Reason: chest pain) Qty: 30 6RF Patient Comments: use once in a great, great while, last use maybe a month ago - effective after 1 dose. Rx Instructions: do not exceed 3 doses per episode cholecalciferol (vitamin D3) [Vitamin D3] 1,000 unit Capsule 2,000 unit PO HS metoprolol succinate 50 mg tablet extended release 24 hr 50 mg PO BID Rx Instructions: TAKE ONE TABLET BY MOUTH TWICE DAILY allopurinol 100 mg tablet 100 mg PO QAM Rx Instructions: TAKE 1 TABLET BY MOUTH EVERY MORNING tamsulosin 0.4 mg capsule 0.4 mg PO QAM verapamil 120 mg capsule,ext rel. pellets 24 hr 120 mg PO QAM Rx Instructions: TAKE 1 CAPSULE BY MOUTH EVERY MORNING Trelegy Ellipta 100-62.5-25 mcg blister with device 1 ea inhalation QAM Rx Instructions: INHALE 1 PUFF BY MOUTH AND INTO THE LUNGS ONCE DAILY RINSE MOUTH AFTER USE prednisone 1 mg Tablet 0 mg PO UD Patient Comments: took last dose today 09/18/25 cyanocobalamin (vitamin B-12) 1,000 mcg tablet 1,000 mcg PO DAILY Qty: 30 0RF Held clopidogrel 75 mg tablet 75 mg PO QAM Hold Instructions: Resume on 09/30/25. Rx Instructions: TAKE ONE TABLET BY MOUTH EVERY MORNING Eliquis 5 mg tablet 5 mg PO BID Hold Instructions: Resume on 09/29/25. Rx Instructions: TAKE ONE TABLET BY MOUTH TWICE DAILY FOR A FIB Discharge Orders: Discharge Order (Routine); Ordered 09/27/25 Ordered By: Sarah Pettit Admission Data Admit Date/Time: 09/26/25 11:52 Attending Provider: Juan F Wilson Admit Provider: Juan F Wilson Primary Care Provider: Ming Gupta Coding Level of Care Code 89758 IN/OBS DISCH 30 MIN/LESS Diagnoses BPH w urinary obs/LUTS N40.1; N13.8
[2025-09-27 12:15] VITALS: BP 129/83; PULSE 85; RESP 21; O2SAT 97
[2025-09-27 14:07] VITALS: TEMP 96.3
== END 2025-09-27 12:12 | disposition home or self-care (01) ==
LOC: ASU 09:34 → PACUINP 09:34 → 3W 13:54
DX: J45.909 Unspecified asthma, uncomplicated; G43.409 Hemiplegic migraine, not intractable, without status migrainosus; I48.0 Paroxysmal atrial fibrillation; K21.9 Gastro-esophageal reflux disease without esophagitis; Z86.711 Personal history of pulmonary embolism; J44.9 Chronic obstructive pulmonary disease, unspecified; N13.8 Other obstructive and reflux uropathy; I67.1 Cerebral aneurysm, nonruptured; Z91.041 Radiographic dye allergy status; Z87.891 Personal history of nicotine dependence; Z88.8 Allergy status to other drugs, medicaments and biological substances; I25.5 Ischemic cardiomyopathy; I27.20 Pulmonary hypertension, unspecified; N40.1 Benign prostatic hyperplasia with lower urinary tract symptoms; Z85.118 Personal history of other malignant neoplasm of bronchus and lung; I25.2 Old myocardial infarction; Z88.1 Allergy status to other antibiotic agents; Z95.5 Presence of coronary angioplasty implant and graft; I12.9 Hypertensive chronic kidney disease with stage 1 through stage 4 chronic kidney disease, or unspecified chronic kidney disease; Z88.0 Allergy status to penicillin; N18.30 Chronic kidney disease, stage 3 unspecified